=== PATIENT | female | born 1940 | race Caucasian/White ===

== ENCOUNTER → 2016-09-04 | Outpatient (CLI) | payer MEDICARE, OTHER ==
[2016-09-04 10:13] LABS: ABSOLUTE BASOPHILS # (AUTO) 0.1 10^3/uL (0.0-0.2); ABSOLUTE EOSINOPHILS # (AUTO) 0.2 10^3/uL (0.0-0.6); ABSOLUTE LYMPHOCYTES (AUTO) 1.3 10^3/uL (0.5-4.7); ABSOLUTE MONOCYTES (AUTO) 0.7 10^3/uL (0.1-1.4); BASOPHILS % (AUTO) 0.8 % (0-2); EOSINOPHILS % (AUTO) 3.3 % (0-6); HEMATOCRIT 41.7 % (36.0-47.0); HEMOGLOBIN 14.1 g/dL (12.0-15.5); HGB HCT DIFFERENCE 0.6; LYMPHOCYTES % (AUTO) 18.4 % (13-45); MEAN CORPUSCULAR HEMOGLOBIN 30.4 pg (27.0-33.4); MEAN CORPUSCULAR HGB CONC 33.9 g/dL (32.0-36.0); MEAN CORPUSCULAR VOLUME 90 fl (80-97); MONOCYTES % (AUTO) 9.1 % (3-13); RED BLOOD COUNT 4.65 10^6/uL (3.72-5.28); RED CELL DISTRIBUTION WIDTH 13.7 % (11.5-14.0); SEGMENTED NEUTROPHILS % (AUTO) 68.4 % (42-78); WHITE BLOOD COUNT 7.3 10^3/uL (4.0-10.5)
[2016-09-04 10:46] LABS: ANION GAP 14 (5-19); BLOOD UREA NITROGEN 49 mg/dL (7-20); CALCIUM 9.5 mg/dL (8.4-10.2); CARBON DIOXIDE 26 mmol/L (22-30); CHLORIDE 101 mmol/L (98-107); CREATININE RESULT 3.44 mg/dL (0.52-1.25); GLUCOSE 87 mg/dL (75-110); PHOSPHORUS 4.4 mg/dL (2.5-4.5); POTASSIUM 4.4 mmol/L (3.6-5.0); SODIUM 140.6 mmol/L (137-145)
[2016-09-05 10:54] LABS: VITAMIN D 25-HYDROXY 48.7 ng/mL (30.0-100.0)
== END ==
LOC: OD 09:02
PROVIDERS: ATTEND Internal Medicine Nephrology
DX: N18.5 Chronic kidney disease, stage 5 (principal); E83.39 Other disorders of phosphorus metabolism; N25.81 Secondary hyperparathyroidism of renal origin; E55.9 Vitamin D deficiency, unspecified
CPT/HCPCS: 36415; 80048; 82040; 82306; 82570; 83970; 84100; 84156; 85025

== ENCOUNTER → 2016-10-04 | Outpatient (CLI) | payer MEDICARE, OTHER ==
[2016-10-04 11:50] LABS: CHOLESTEROL 127.09 mg/dL (0-200); Direct HDL 52 mg/dL (>40); TRIGLYCERIDES 92 mg/dL (<150)
[2016-10-04 11:58] LABS: DIRECT LDL 43 mg/dL (<100)
== END ==
LOC: OD 10:16
PROVIDERS: ATTEND Internal Medicine Cardiovascular Disease
DX: E78.00 Pure hypercholesterolemia, unspecified (principal)
CPT/HCPCS: 36415; 80061

== ENCOUNTER → 2016-12-06 | Outpatient (CLI) | payer MEDICARE, OTHER ==
[2016-12-06 10:00] LABS: ANION GAP 14 (5-19); BLOOD UREA NITROGEN 75 mg/dL (7-20); CARBON DIOXIDE 24 mmol/L (22-30); CHLORIDE 102 mmol/L (98-107); CREATININE RESULT 4.57 mg/dL (0.52-1.25); GLUCOSE 85 mg/dL (75-110); POTASSIUM 5.1 mmol/L (3.6-5.0); SODIUM 140.2 mmol/L (137-145)
== END ==
LOC: OD 08:42
PROVIDERS: ATTEND Internal Medicine Nephrology
DX: N18.5 Chronic kidney disease, stage 5 (principal); N25.81 Secondary hyperparathyroidism of renal origin
CPT/HCPCS: 36415; 80048; 83970

== ENCOUNTER → 2016-12-19 | Outpatient (CLI) | payer MEDICARE, OTHER ==
[2016-12-19 09:46] LABS: ABSOLUTE BASOPHILS # (AUTO) 0.1 10^3/uL (0.0-0.2); ABSOLUTE EOSINOPHILS # (AUTO) 0.2 10^3/uL (0.0-0.6); ABSOLUTE LYMPHOCYTES (AUTO) 1.4 10^3/uL (0.5-4.7); ABSOLUTE MONOCYTES (AUTO) 0.7 10^3/uL (0.1-1.4); ABSOLUTE NEUT (AUTO) 4.7 10^3/uL (1.7-8.2); BASOPHILS % (AUTO) 1.2 % (0-2); EOSINOPHILS % (AUTO) 2.6 % (0-6); HEMATOCRIT 38.5 % (36.0-47.0); HEMOGLOBIN 13.2 g/dL (12.0-15.5); HGB HCT DIFFERENCE 1.1; LYMPHOCYTES % (AUTO) 19.1 % (13-45); MEAN CORPUSCULAR HEMOGLOBIN 31.1 pg (27.0-33.4); MEAN CORPUSCULAR HGB CONC 34.3 g/dL (32.0-36.0); MEAN CORPUSCULAR VOLUME 91 fl (80-97); RED BLOOD COUNT 4.25 10^6/uL (3.72-5.28); RED CELL DISTRIBUTION WIDTH 13.6 % (11.5-14.0); SEGMENTED NEUTROPHILS % (AUTO) 67.1 % (42-78); WHITE BLOOD COUNT 7.1 10^3/uL (4.0-10.5)
[2016-12-19 10:01] LABS: ABSOLUTE BASOPHILS # (AUTO) 0.1 10^3/uL (0.0-0.2); ABSOLUTE EOSINOPHILS # (AUTO) 0.2 10^3/uL (0.0-0.6); ABSOLUTE LYMPHOCYTES (AUTO) 1.4 10^3/uL (0.5-4.7); ABSOLUTE MONOCYTES (AUTO) 0.7 10^3/uL (0.1-1.4); ABSOLUTE NEUT (AUTO) 4.7 10^3/uL (1.7-8.2); BASOPHILS % (AUTO) 1.2 % (0-2); EOSINOPHILS % (AUTO) 2.6 % (0-6); HEMATOCRIT 38.5 % (36.0-47.0); HEMOGLOBIN 13.2 g/dL (12.0-15.5); HGB HCT DIFFERENCE 1.1; LYMPHOCYTES % (AUTO) 19.1 % (13-45); MEAN CORPUSCULAR HEMOGLOBIN 31.1 pg (27.0-33.4); MEAN CORPUSCULAR HGB CONC 34.3 g/dL (32.0-36.0); MEAN CORPUSCULAR VOLUME 91 fl (80-97); RED BLOOD COUNT 4.25 10^6/uL (3.72-5.28); RED CELL DISTRIBUTION WIDTH 13.6 % (11.5-14.0); SEGMENTED NEUTROPHILS % (AUTO) 67.1 % (42-78); WHITE BLOOD COUNT 7.1 10^3/uL (4.0-10.5)
[2016-12-19 10:11] LABS: ALANINE AMINOTRANSFERASE 25 U/L (9-52); ALKALINE PHOSPHATASE 77 U/L (38-126); ANION GAP 14 (5-19); ASPARTATE AMINO TRANSFERASE 20 U/L (14-36); BILIRUBIN,DIRECT 0.2 mg/dL (0.0-0.4); BILIRUBIN,TOTAL 0.7 mg/dL (0.2-1.3); BLOOD UREA NITROGEN 59 mg/dL (7-20); CALCIUM 9.6 mg/dL (8.4-10.2); CARBON DIOXIDE 25 mmol/L (22-30); CHLORIDE 103 mmol/L (98-107); CREATININE RESULT 3.81 mg/dL (0.52-1.25); GLUCOSE 87 mg/dL (75-110); POTASSIUM 4.9 mmol/L (3.6-5.0); SODIUM 141.9 mmol/L (137-145); TOTAL PROTEIN 7.1 g/dL (6.3-8.2); URIC ACID 3.9 mg/dL (2.5-7.5)
[2016-12-19 10:22] LABS: FREE T3 3.15 pg/mL (2.77-5.27)
[2016-12-19 10:35] LABS: THYROID STIMULATING HORMONE 1.53 uIU/mL (0.47-4.68)
[2016-12-19 11:13] LABS: ANION GAP 14 (5-19); BLOOD UREA NITROGEN 59 mg/dL (7-20); CALCIUM 9.6 mg/dL (8.4-10.2); CARBON DIOXIDE 25 mmol/L (22-30); CHLORIDE 103 mmol/L (98-107); CREATININE RESULT 3.81 mg/dL (0.52-1.25); GLUCOSE 87 mg/dL (75-110); PHOSPHORUS 6.2 mg/dL (2.5-4.5); POTASSIUM 4.9 mmol/L (3.6-5.0); SODIUM 141.9 mmol/L (137-145)
[2016-12-20 08:42] LABS: HEPATITIS C VIRUS AB <0.1 s/co ratio (0.0-0.9)
== END ==
LOC: OD 08:34
PROVIDERS: ATTEND Family Medicine
DX: Z79.899 Other long term (current) drug therapy (principal); N18.5 Chronic kidney disease, stage 5; E87.5 Hyperkalemia; E87.2 Acidosis; E03.9 Hypothyroidism, unspecified; M10.372 Gout due to renal impairment, left ankle and foot
CPT/HCPCS: 36415; 80048; 80076; 84100; 84439; 84443; 84481; 84550; 85025; 86317; 86803; 86804; 87340

== ENCOUNTER 2017-06-13 11:42 | Inpatient (IN) | payer MEDICARE, OTHER ==
--- NOTE | 2017-06-13 12:03 | ER Document Report ---
ED Neuro Symptoms/Deficit - General Chief Complaint: S/S of Possible Stroke Stated Complaint: DIZZINESS,WEAKNESS Notes: Patient says that she has left-sided weakness. She suffers from this condition as a residual from a stroke that she had in 2008. She continues to require a walker or a cane to ambulate, so there are no profound new deficits or symptoms. She says she falls into the dominguez frequently. This morning, about 8: 50 AM, patient was in the shower when she developed left arm and leg weakness more than usual. Patient says she is unable to stand without help or assistance now. Denies any headache. Denies any loss of consciousness. Patient is a renal dialysis patient on Friday, Friday, and Friday dialysis. She has no nausea or vomiting. Denies any chest pains. Denies any shortness of breath or difficulty breathing, any more than she normally has. Denies any recent illness or fevers. Patient lives with her and next door to her son. History of hypertension. Denies diabetes. Has a history of heart disease. TRAVEL OUTSIDE OF THE [place] IN LAST 30 DAYS: No - Related Data Allergies/Adverse Reactions: Sulfa (Sulfonamide Antibiotics) Allergy (Severe, Verified 06/13/17 12:05) unsure pregabalin [From Lyrica] Adverse Reaction (Severe, Verified 06/13/17 12:05) irritable,weight gain Home Medications: Current Home Medications Albuterol Sulfate [Proair HFA] 1 - 2 puff IH Q4 PRN 06/13/17 [History] Calcium Acetate [Calcium Acetate] 667 mg PO TID 06/13/17 [History] Febuxostat [Uloric 40 mg Tablet] 40 mg PO QAM 06/13/17 [History] Fluticasone/Salmeterol [Advair 250-50 Diskus 14 Dose/Diskus] 1 inh IH Q12H 06/13 [History] Past Medical History - Social History Smoking Status: Never Smoker Cigarette use (# per day): No Chew tobacco use (# tins/day): No Frequency of alcohol use: None Drug Abuse: None Family History: Reviewed & Not Pertinent, CAD Patient has suicidal ideation: No Patient has homicidal ideation: No - Past Medical History Cardiac Medical History: Reports: Hx Coronary Artery Disease, Hx Heart Attack - 2000, Hx Hypercholesterolemia, Hx Hypertension Denies: Hx Atrial Fibrillation Pulmonary Medical History: Reports: Hx COPD Denies: Hx Asthma Neurological Medical History: Reports: Hx Cerebrovascular Accident - 2008,2010. Denies: Hx Seizures Endocrine Medical History: Reports: Hx Hypothyroidism. 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 Denies: Hx Hepatitis, Hx Hiatal Hernia, Hx Ulcer - DIVERTICULITIS Psychiatric Medical History: Denies: Hx Depression Infectious Medical History: Denies: Hx Hepatitis Past Surgical History: Reports: Hx Appendectomy, Hx Cardiac Surgery - STENT, Hx Cholecystectomy, Hx Coronary Stent - August 2014. Denies: Hx Hysterectomy, Hx Mastectomy, Hx Open Heart Surgery, Hx Pacemaker - Immunizations Hx Diphtheria, Pertussis, Tetanus Vaccination: - unknown Hx Pneumococcal Vaccination: 07/07/12 Review of Systems - Review of Systems Notes: REVIEW OF SYSTEMS: CONSTITUTIONAL : Denies fever. EENT: Denies eye, ear, nose or mouth or throat pain or other symptoms. CARDIOVASCULAR: Denies chest pain. RESPIRATORY: Denies cough, chest congestion, or shortness of breath, other than her usual feeling of difficulty breathing.. GASTROINTESTINAL: Denies abdominal pain or nausea, vomiting, or diarrhea. GENITOURINARY: Denies difficulty or painful urinating, urinary frequency, blood in urine. MUSCULOSKELETAL: Denies back or neck pain. Denies joint pain or swelling. SKIN: Denies rash or skin lesions. NEUROLOGICAL: Denies LOC or altered mental status. Denies headache. See HPI. ALL OTHER SYSTEMS REVIEWED AND NEGATIVE. Physical Exam - Vital signs Vitals: Pulse Ox 100 06/13/17 11:56 Interpretation: Normal - Notes Notes: PHYSICAL EXAMINATION: GENERAL: Well-appearing, in no acute distress. Vital signs are all essentially normal. HEAD: Atraumatic, normocephalic. No facial asymmetry. No carotid bruits heard. EYES: Pupils equal round and reactive to light, extraocular movements intact. ENT: oropharynx clear without exudates. Moist mucous membranes. No slurred speech. No difficulty swallowing. NECK: Normal range of motion, supple. LUNGS: Breath sounds clear and equal bilaterally. HEART: Regular rate and rhythm without murmurs. ABDOMEN: Soft, nontender. No guarding or rebound. BACK: No tenderness throughout entire back. EXTREMITIES: Normal range of motion without pain. Dialysis shunt in left antecubital fossa with some ecchymosis. NEUROLOGICAL: Normal speech. It seems the patient has some very mild weakness of her left arm and leg. She can raise her left arm from the bed to over her head without assistance. Otherwise, normal sensory, motor, and reflex exams. Awake, alert, and oriented x3. Cranial nerves normal. We are able to stand the patient up at the bedside and, with assistance, she does not fall. I did not try to walk her, however. PSYCH: Normal mood, normal affect. SKIN: Warm, dry, no rashes. Course - Re-evaluation Re-evalutation: 06/13/17 12:58 There is a correction to the time of onset of patient's symptoms. is here with his cell phone showing he called his daughter at 9:50 AM about the patient's condition. The daughter has on her phone that she was called at 9:50 AM, so the episode occurred about 930 this morning. It is now about 1230 and the patient is on the border of being out of the window of opportunity. I presented the options to the patient and they asked my advice if this was my mother and I told him that I would not do the thrombolytics in this case because her deficit is fairly minor. I am hopeful that she would have a fairly good result with some physical therapy without putting her at risk of an intracranial hemorrhage. Spoke with hospitalist who will admit the patient. Spoke with Dr. Neumann, this patient's inspector of dredging who says that the patient is going to need to have dialysis done today and nursing staff was made aware. - Vital Signs Vital signs: Temp Pulse Resp BP Pulse Ox 100 06/13/17 11:56 - Laboratory Result Diagrams: 06/13/17 11:58 06/13/17 11:58 - Diagnostic Test Radiology reviewed: Image reviewed, Reports reviewed - CT scan of the brain is normal. - EKG Interpretation by Me EKG shows normal: Sinus rhythm Rate: Normal Rhythm: NSR Additional EKG results interpreted by me: 06/13/17 13:01 EKG is normal. Critical Care Note - Critical Care Note Total time excluding time spent on procedures (mins): 40 Discharge - Discharge Clinical Impression: Stroke, End stage renal failure on dialysis Condition: Fair Disposition: ADMITTED INPATIENT Admitting Provider: Hospitalist Unit Admitted: Telemetry
--- NOTE | 2017-06-13 12:06 | RADIOLOGY REPORT (SQ) ---
EXAM DESCRIPTION: CT HEAD WITHOUT COMPLETED DATE/TIME: 06/13/2017 11:55 am REASON FOR STUDY: s/s stroke COMPARISON: 11/06/2014 TECHNIQUE: Axial images acquired through the brain without intravenous contrast. Images reviewed wi th bone, brain and subdural windows. Images stored on PACS. All CT scanners at this facility use dose modulation, iterative reconstruction, and/or weight based d osing when appropriate to reduce radiation dose to as low as reasonably achievable (ALARA). [facility]: Dose Right [facility]: CareDose [facility]: Dose Right [facility]: Teradose 4D [facility]: [employer] RADIATION DOSE: mGy. LIMITATIONS: None. FINDINGS: VENTRICLES: Normal size and contour. CEREBRUM: No masses. No hemorrhage. No midline shift. No evidence for acute infarction. Few scatte red areas of low density in the white matter most likely chronic small vessel ischemic changes. Pablo ical atrophy is present. CEREBELLUM: No masses. No hemorrhage. No alteration of density. No evidence for acute infarction. EXTRAAXIAL SPACES: No fluid collections. No masses. ORBITS AND GLOBE: No intra- or extraconal masses. Normal contour of globe without masses. CALVARIUM: No fracture. PARANASAL SINUSES: No fluid or mucosal thickening. SOFT TISSUES: No mass or hematoma. OTHER: No other significant finding. IMPRESSION: Involutional changes of aging with chronic microvascular ischemia. No acute intracrania l findings. EVIDENCE OF ACUTE STROKE: NO. COMMENT: Quality ID # [id number]: Final reports with documentation of one or more dose reduction techniques (e.g., Automated exposure control, adjustment of the mA and/or kV according to patient size, use of iterative reconstruction technique) TECHNICAL DOCUMENTATION: JOB ID: [id number]- All Rights Reserved
--- NOTE | 2017-06-13 12:09 | RADIOLOGY REPORT (SQ) ---
EXAM DESCRIPTION: CHEST SINGLE VIEW COMPLETED DATE/TIME: 06/13/2017 12:02 pm REASON FOR STUDY: s/s stroke COMPARISON: 04/05/2016 EXAM PARAMETERS: NUMBER OF VIEWS: One view. TECHNIQUE: Single frontal radiographic view of the chest acquired. RADIATION DOSE: NA LIMITATIONS: None. FINDINGS: LUNGS AND PLEURA: No opacities, masses or pneumothorax. No pleural effusion. MEDIASTINUM AND HILAR STRUCTURES: No masses. Contour normal. HEART AND VASCULAR STRUCTURES: Heart normal in size. Normal vasculature. BONES: No acute findings. HARDWARE: None in the chest. OTHER: No other significant finding. IMPRESSION: NO ACUTE RADIOGRAPHIC FINDING IN THE CHEST. TECHNICAL DOCUMENTATION: JOB ID: [id number] [employer]- All Rights Reserved
[2017-06-13 12:12] LABS: PARTIAL THROMBOPLASTIN TIME 29.9 SEC (23.5-35.8)
[2017-06-13 12:24] LABS: ABSOLUTE BASOPHILS # (AUTO) 0.1 10^3/uL (0.0-0.2); ABSOLUTE EOSINOPHILS # (AUTO) 0.1 10^3/uL (0.0-0.6); ABSOLUTE LYMPHOCYTES (AUTO) 1.3 10^3/uL (0.5-4.7); ABSOLUTE MONOCYTES (AUTO) 0.6 10^3/uL (0.1-1.4); ABSOLUTE NEUT (AUTO) 3.4 10^3/uL (1.7-8.2); BASOPHILS % (AUTO) 1.3 % (0-2); HEMATOCRIT 40.4 % (36.0-47.0); HEMOGLOBIN 13.9 g/dL (12.0-15.5); HGB HCT DIFFERENCE 1.3; LYMPHOCYTES % (AUTO) 24.2 % (13-45); MEAN CORPUSCULAR HEMOGLOBIN 31.8 pg (27.0-33.4); MEAN CORPUSCULAR HGB CONC 34.5 g/dL (32.0-36.0); MEAN CORPUSCULAR VOLUME 92 fl (80-97); MONOCYTES % (AUTO) 11.2 % (3-13); RED BLOOD COUNT 4.37 10^6/uL (3.72-5.28); RED CELL DISTRIBUTION WIDTH 13.5 % (11.5-14.0); SEGMENTED NEUTROPHILS % (AUTO) 61.3 % (42-78); WHITE BLOOD COUNT 5.5 10^3/uL (4.0-10.5)
[2017-06-13 12:24] LABS: APPEARANCE,URINE CLEAR; BILIRUBIN,URINE NEGATIVE (NEGATIVE); GLUCOSE, URINE NEGATIVE (NEGATIVE); KETONES,URINE NEGATIVE (NEGATIVE); LEUKOCYTE ESTERASE,URINE NEGATIVE (NEGATIVE); NITRITE,URINE NEGATIVE (NEGATIVE); PROTEIN,URINE 100 mg/dL (NEGATIVE); URINE SPECIFIC GRAVITY 1.002; UROBILINOGEN,URINE NEGATIVE mg/dL (<2.0)
[2017-06-13 12:30] LABS: ALANINE AMINOTRANSFERASE 29 U/L (9-52); ALBUMIN 4.1 g/dL (3.5-5.0); ALKALINE PHOSPHATASE 102 U/L (38-126); ANION GAP 12 (5-19); ASPARTATE AMINO TRANSFERASE 24 U/L (14-36); BILIRUBIN,DIRECT 0.5 mg/dL (0.0-0.4); BILIRUBIN,TOTAL 0.9 mg/dL (0.2-1.3); BLOOD UREA NITROGEN 22 mg/dL (7-20); CALCIUM 9.8 mg/dL (8.4-10.2); CARBON DIOXIDE 28 mmol/L (22-30); CHLORIDE 104 mmol/L (98-107); CREATINE KINASE 40 U/L (30-135); CREATININE RESULT 3.12 mg/dL (0.52-1.25); GLUCOSE 103 mg/dL (75-110); POTASSIUM 3.5 mmol/L (3.6-5.0); SODIUM 144.4 mmol/L (137-145); TOTAL PROTEIN 7.3 g/dL (6.3-8.2)
[2017-06-13 12:41] LABS: TROPONIN I < 0.012 ng/mL
--- NOTE | 2017-06-13 12:53 | EKG REPORT ---
SEVERITY:- BORDERLINE ECG - SINUS RHYTHM BORDERLINE INFERIOR Q WAVES : Confirmed by: Brittni Alonso 13-Jun-2017 12:52:37
[2017-06-13] MEDS ORDERED: NITROGLYCERIN 0.4 MG/TAB 25 TAB/BOTTLE SL PRN (13:04)
[2017-06-13] MEDS ORDERED: HYDRALAZINE HCL INJ/PF 20 MG/1 ML SDV IV PRN (13:07)
[2017-06-13] MEDS ORDERED: FLUTICASONE/SALMETEROL DISKUS 250-50 MCG/DOSE IH SCH (13:15)
[2017-06-13] MEDS ORDERED: ACETAMINOPHEN 325 MG TABLET PO PRN (13:43)
[2017-06-13] MEDS ORDERED: CALCIUM ACETATE 667 MG CAPSULE PO SCH (14:00)
[2017-06-13 15:50] LABS: ANION GAP 14 (5-19); BLOOD UREA NITROGEN 21 mg/dL (7-20); CALCIUM 9.3 mg/dL (8.4-10.2); CARBON DIOXIDE 22 mmol/L (22-30); CHLORIDE 109 mmol/L (98-107); CREATININE RESULT 2.94 mg/dL (0.52-1.25); GLUCOSE 82 mg/dL (75-110); POTASSIUM 3.7 mmol/L (3.6-5.0); SODIUM 145.2 mmol/L (137-145)
[2017-06-13] MEDS ORDERED: NORMAL SALINE 1000 ML 1,000 ML IV PRN (16:32)
[2017-06-13] MEDS ORDERED: ALBUTEROL SULFATE HFA (90 MCG/PUFF) 8 GM MDI (1 MDI/ER DISP) IH PRN (16:38)
--- NOTE | 2017-06-13 16:55 | PDOC CONSULTATION ---
Consultation Consult Date: 06/13/17 Attending physician:: BISHNU JALLOH Consult reason:: I was asked by Dr. Trent from the emergency room to see the patient for management and supervision of hemodialysis while here in the hospital. 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 Patient related that while she was in the shower at around 9:30 AM she felt that her left side is been weaker than her usual baseline. She immediately called her and her called her [id number] who called the EMS. She was then brought to the emergency room. Thrombolytics was considered but the emergency room physician, Dr. Membreno have discussed this with the family and decision was not to give it. Patient was then admitted. Patient denies any other symptoms including slurring of speech, facial droop, chest pain or shortness of breath. She has slight nausea but no vomiting. In retrospect patient said that in the past she has been falling into things and bumping on the dominguez on that left side but nothing major like this. Patient goes on dialysis on Mondays , Wednesdays and Fridays. Her last dialysis was last Friday and there was no complications at that time. So today regarding going to dialyze her. I am actually seeing her while she is on dialysis. She does not really have any complaints except for the left sided weakness. Past Medical History Cardiac Medical History: Reports: Coronary Artery Disease, Hyperlipidemia, Hypertension-primary, Myocardial Infarction - 2000, Other - Subclavian steal syndrome Pulmonary Medical History: Reports: Chronic Obstructive Pulmonary Disease (COPD) , Sleep Apnea Neurological Medical History: Reports: Ischemic CVA, Other - TIA, syncope, vertigo Endocrine Medical History: Reports: Hypothyroidism Renal/ Medical History: Reports: End Stage Renal Disease - Stage IV, Hyperphosphatemia, Metabolic Acidosis, Proteinuria, Secondary Hyperparathyroidism, Other - FSGS per kidney biopsy GI Medical History: Reports: Other - Diverticulitis Past Surgical History Past Surgical History: Reports: Appendectomy, Cardiac Catheterization, Cholecystectomy, Coronary Stent - August 2014, Dialysis Access Surgery AVF, Tubal Ligation, Vascular Surgery - PermCath placement for dialysis Social History Information Source: Patient, [employer] Office Lives with: Spouse/Significant other Smoking Status: Former Smoker Frequency of Alcohol Use: None Hx Recreational Drug Use: No Drugs: None Hx Prescription Drug Abuse: No - Advance Directive Resuscitation Status: Full Code Family History Family History: CVA - Mother, Hypertension - Sister, Other - Kidney stone in her sister and mother. [place] syndrome on her father, sister, cousin and nephew Parental Family History Reviewed: Yes Children Family History Reviewed: Yes Sibling(s) Family History Reviewed.: Yes Medication/Allergy Home Medications: Atorvastatin Calcium [Lipitor 40 mg Tablet] 40 mg PO QHS 08/14/13 Furosemide [Lasix 20 mg Tablet] 20 mg PO SUTUTHSA@10 08/14/13 Levothyroxine Sodium [Synthroid 0.088 mg Tablet] 88 mcg PO DAILY 08/14/13 Metoprolol Succinate [Toprol XL 100 mg Tablet] 50 mg PO QHS 08/14/13 Nitroglycerin [Nitrostat 0.4 mg (1/150 Gr) Tabs 25/Bottle] 1 tab SL Q5MP PRN 02/17 Tiotropium [place] [Spiriva Handihaler 18 mcg/dose (30 Dose)] 1 cap IH DAILY 02/17 Aspirin [Aspirin 81 mg Chewable Tablet] 81 mg PO DAILY 02/17/15 Albuterol Sulfate [Proair HFA] 2 puff IH Q6HP PRN 06/13/17 Calcium Acetate [Calcium Acetate] 667 mg PO MEALS 06/13/17 Febuxostat [Uloric 40 mg Tablet] 40 mg PO QAM 06/13/17 Fluticasone/Salmeterol [Advair 250-50 Diskus 14 Dose/Diskus] 1 inh IH Q12 Allergies/Adverse Reactions: Sulfa (Sulfonamide Antibiotics) Allergy (Severe, Verified 06/13/17 12:05) unsure pregabalin [From Lyrica] Adverse Reaction (Severe, Verified 06/13/17 12:05) irritable,weight gain Review of Systems All systems: reviewed and no additional remarkable complaints except as stated Review of Systems: Constitutional: ABSENT: chills, fatigue, fever(s), headache(s), weight gain, weight loss Eyes: ABSENT: visual disturbances Ears: ABSENT: hearing changes Cardiovascular: ABSENT: chest pain, dyspnea on exertion, edema, orthropnea, palpitations Respiratory: ABSENT: cough, dyspnea, hemoptysis Gastrointestinal: ABSENT: abdominal pain, constipation, diarrhea, hematemesis, hematochezia, nausea, vomiting Genitourinary: ABSENT: dysuria, hematuria Musculoskeletal: ABSENT: joint swelling Integumentary: ABSENT: rash, wounds Neurological: ABSENT: abnormal gait, abnormal speech, confusion, dizziness, numbness, syncope; admits left sided upper and lower extremity weakness more than her usual residual weakness from previous strokes Psychiatric: ABSENT: anxiety, depression Endocrine: ABSENT: cold intolerance, heat intolerance, polydipsia, polyuria Hematologic/Lymphatic: ABSENT: easy bleeding, easy bruising, lymphadenopathy Physical Exam Vital Signs: Temp Pulse Resp BP Pulse Ox 73 21 H 151/76 H 90 L 06/13/17 15:00 06/13/17 15:01 06/13/17 15:00 06/13/17 15:01 Vital signs during dialysis: Blood pressure 160/83, heart rate of 73, blood flow rate of 450 mL/min, dialysate flow rate of 800 mL/min. Exam: General appearance: no acute distress, cooperative, well-developed, well- nourished Head exam: PRESENT: atraumatic, normocephalic Eye exam: PRESENT: Conjunctiva [place], EOMI, PERRLA. ABSENT: conjunctival injection, scleral icterus Mouth exam: PRESENT: moist, neck supple, tongue midline Neck exam: PRESENT: full ROM. ABSENT: carotid bruit, JVD, lymphadenopathy, thyromegaly Respiratory exam: PRESENT: clear to auscultation bilaterally. ABSENT: rales, rhonchi, stridor, wheezes Cardiovascular exam: PRESENT: RRR, +S1, +S2. ABSENT: systolic murmur Pulses: PRESENT: normal radial pulses, normal dorsalis pedis pulses GI/Abdominal exam: PRESENT: normal bowel sounds, soft. ABSENT: guarding, mass, tenderness Rectal exam: deferred Extremities exam: PRESENT: full ROM. ABSENT: calf tenderness, pedal edema Musculoskeletal: PRESENT: full ROM. ABSENT: deformity Neurological exam: PRESENT: alert, Awake, Oriented to person, Oriented to place , Oriented to time, reflexes normal, CN II-XII grossly intact. Motor strength on the right upper and lower extremities 5/5; on the left upper extremity 3+/5 and left lower extremity 3/5 ABSENT: sensory deficit Psychiatric exam: PRESENT: appropriate affect, normal mood. ABSENT: homicidal ideation, suicidal ideation Skin exam: PRESENT: intact, dry, warm. ABSENT: rash Results Laboratory Results: Laboratory 06/13/17 06/13/17 06/13/17 11:49 11:58 11:58 WBC 5.5 RBC 4.37 Hgb 13.9 Hct 40.4 MCV 92 MCH 31.8 MCHC 34.5 RDW 13.5 Plt Count 247 Seg Neutrophils % 61.3 Lymphocytes % 24.2 Monocytes % 11.2 Eosinophils % 2.0 Basophils % 1.3 Absolute Neutrophils 3.4 Absolute Lymphocytes 1.3 Absolute Monocytes 0.6 Absolute Eosinophils 0.1 Absolute Basophils 0.1 PT 14.0 INR 1.01 APTT 29.9 Sodium Potassium Chloride Carbon Dioxide Anion Gap BUN Creatinine Est GFR ( Amer) Est GFR (Non-Af Amer) Glucose POC Glucose 91 Calcium Total Bilirubin Direct Bilirubin Neonat Total Bilirubin Neonat Direct Bilirubin Neonat Indirect Bili AST ALT Alkaline Phosphatase Creatine Kinase CK-MB (CK-2) Troponin I Total Protein Albumin Urine Color Urine Appearance Urine pH Ur Specific [place] Urine Protein Urine Glucose (UA) Urine Ketones Urine Blood Urine Nitrite Urine Bilirubin Urine Urobilinogen Ur Leukocyte Esterase Urine WBC (Auto) Urine RBC (Auto) U Hyaline Cast (Auto) Urine Bacteria (Auto) Squamous Epi Cells Auto Urine Ascorbic Acid 06/13/17 06/13/17 06/13/17 11:58 11:58 12:05 WBC RBC Hgb Hct MCV MCH MCHC RDW Plt Count Seg Neutrophils % Lymphocytes % Monocytes % Eosinophils % Basophils % Absolute Neutrophils Absolute Lymphocytes Absolute Monocytes Absolute Eosinophils Absolute Basophils PT INR APTT Sodium 144.4 Potassium 3.5 L Chloride 104 Carbon Dioxide 28 Anion Gap 12 BUN 22 H Creatinine 3.12 H Est GFR ( Amer) 18 L Est GFR (Non-Af Amer) 15 L Glucose 103 POC Glucose Calcium 9.8 Total Bilirubin 0.9 Direct Bilirubin 0.5 H Neonat Total Bilirubin Not Reportable Neonat Direct Bilirubin Not Reportable Neonat Indirect Bili Not Reportable AST 24 ALT 29 Alkaline Phosphatase 102 Creatine Kinase 40 CK-MB (CK-2) 0.40 Troponin I < 0.012 Total Protein 7.3 Albumin 4.1 Urine Color STRAW Urine Appearance CLEAR Urine pH 8.0 Ur Specific [place] 1.002 Urine Protein 100 H Urine Glucose (UA) NEGATIVE Urine Ketones NEGATIVE Urine Blood SMALL H Urine Nitrite NEGATIVE Urine Bilirubin NEGATIVE Urine Urobilinogen NEGATIVE Ur Leukocyte Esterase NEGATIVE Urine WBC (Auto) 1 Urine RBC (Auto) 2 U Hyaline Cast (Auto) 1 Urine Bacteria (Auto) 3+ Squamous Epi Cells Auto 2 Urine Ascorbic Acid NEGATIVE 06/13/17 13:45 WBC RBC Hgb Hct MCV MCH MCHC RDW Plt Count Seg Neutrophils % Lymphocytes % Monocytes % Eosinophils % Basophils % Absolute Neutrophils Absolute Lymphocytes Absolute Monocytes Absolute Eosinophils Absolute Basophils PT INR APTT Sodium 145.2 H Potassium 3.7 Chloride 109 H Carbon Dioxide 22 Anion Gap 14 BUN 21 H Creatinine 2.94 H Est GFR ( Amer) 19 L Est GFR (Non-Af Amer) 16 L Glucose 82 POC Glucose Calcium 9.3 Total Bilirubin Direct Bilirubin Neonat Total Bilirubin Neonat Direct Bilirubin Neonat Indirect Bili AST ALT Alkaline Phosphatase Creatine Kinase CK-MB (CK-2) Troponin I Total Protein Albumin Urine Color Urine Appearance Urine pH Ur Specific [place] Urine Protein Urine Glucose (UA) Urine Ketones Urine Blood Urine Nitrite Urine Bilirubin Urine Urobilinogen Ur Leukocyte Esterase Urine WBC (Auto) Urine RBC (Auto) U Hyaline Cast (Auto) Urine Bacteria (Auto) Squamous Epi Cells Auto Urine Ascorbic Acid Impressions: Chest X-Ray 06/13/17 11:44 IMPRESSION: NO ACUTE RADIOGRAPHIC FINDING IN THE CHEST. Head CT 06/13/17 11:44 IMPRESSION: Involutional changes of aging with chronic microvascular ischemia. No acute intracranial findings. EVIDENCE OF ACUTE STROKE: NO. Assessment & Plan - Diagnosis (1) End stage renal failure on dialysis Is this a current diagnosis for this admission?: Yes Plan: We are doing dialysis on this patient today. Patient is being monitored toward closely. We will do dialysis today for 3 hours, using the patient's left arm AV fistula, with 3 potassium bath, blood flow rate of 450 mL per minute, dialysate flow rate of 800 mL per minute, ultrafiltration 1-2 L as tolerated, no heparin and no Procrit during dialysis. Patient will be closely monitored toward. Next dialysis will be on Friday. (2) Acute CVA (cerebrovascular accident) Is this a current diagnosis for this admission?: Yes Plan: Patient has worsening of left-sided weakness. She will need to be monitored . She will most likely need some acute rehab posthospitalization. (3) Hypertension Is this a current diagnosis for this admission?: Yes Plan: Resume patient's home blood pressure medications. Her blood pressure is usually well controlled with her current home medications. This may be adjusted depending on her blood pressure here in the hospital. (4) Coronary artery disease Is this a current diagnosis for this admission?: Yes - Notes Notes: Thank you very much for this consultation. I will follow the patient with you. - Time Time Spent: 50 to 70 Minutes
[2017-06-13] MEDS ORDERED: ALBUTEROL SULFATE HFA (90 MCG/PUFF) 200 PUFF/8.5 GM MDI IH PRN (16:59)
[2017-06-13] MEDS ORDERED: FUROSEMIDE 20 MG TABLET PO SCH (18:00)
--- NOTE | 2017-06-13 18:29 | PDOC H&P ---
History of Present Illness Admission Date/PCP: 06/13/17 14:04 GIANNA BOURGEOIS MD Nephrology: Dr. 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 Patient related that while she was in the shower at around 9:30 AM she felt that her left side is been weaker than her usual baseline. She immediately called her and her called her [id number] who called the EMS. She was then brought to the emergency room. Thrombolytics was considered but the emergency room physician, Dr. Membreno have discussed this with the family and decision was not to give it. Patient was t referred for admission. She patient denies any other symptoms including slurring of speech, facial droop, chest pain or shortness of breath. She has slight nausea but no vomiting. In retrospect patient said that in the past she has been falling into things and bumping on the dominguez on that left side but nothing major like this. Patient goes on dialysis on Mondays , Wednesdays and Fridays. Her last dialysis was last Friday and there was no complications at that time. The patient is going to be dialyzed today by Dr. Neumann. Past Medical History Cardiac Medical History: Reports: Coronary Artery Disease, Myocardial Infarction - 2000, Hyperlipidema, Hypertension, Other - Subclavian steal syndrome Denies: Atrial Fibrillation Pulmonary Medical History: Reports: Chronic Obstructive Pulmonary Disease (COPD) , Sleep Apnea Denies: Asthma Neurological Medical History: Reports: Ischemic CVA, Other - TIA, syncope, vertigo Denies: Seizures Endocrine Medical History: Reports: Hypothyroidism Denies: Diabetes Mellitus Type 1, Diabetes Mellitus Type 2 Renal/ Medical History: Reports: End Stage Renal Disease - Stage IV, Other - FSGS per kidney biopsy Malignancy Medical History: Reports: None GI Medical History: Reports: Other - Diverticulitis Denies: Hepatitis, Hiatal Hernia Musculoskeltal Medical History: Reports: None Skin Medical History: Reports: None Psychiatric Medical History: Reports: None Denies: Depression Traumatic Medical History: Reports: None Hematology: Reports: Anemia Denies: Sickle Cell Disease Infectious Medical History: Reports: None Past Surgical History Past Surgical History: Reports: Appendectomy, Cardiac Catheterization, Cholecystectomy, Coronary Stent - August 2014, Tubal Ligation, Vascular Surgery - PermCath placement for dialysis Denies: Amputation, Hysterectomy, Mastectomy, Pacemaker Social History Information Source: Patient Lives with: Spouse/Significant other Smoking Status: Former Smoker Frequency of Alcohol Use: None Hx Recreational Drug Use: No Drugs: None Hx Prescription Drug Abuse: No - Advance Directive Resuscitation Status: Full Code Family History Family History: Reviewed & Not Pertinent, CAD Parental Family History Reviewed: Yes Children Family History Reviewed: Yes Sibling(s) Family History Reviewed.: Yes Medication/Allergy Home Medications: Atorvastatin Calcium [Lipitor 40 mg Tablet] 40 mg PO QHS 08/14/13 Furosemide [Lasix 20 mg Tablet] 20 mg PO SUTUTHSA@10 08/14/13 Levothyroxine Sodium [Synthroid 0.088 mg Tablet] 88 mcg PO DAILY 08/14/13 Metoprolol Succinate [Toprol XL 100 mg Tablet] 50 mg PO QHS 08/14/13 Nitroglycerin [Nitrostat 0.4 mg (1/150 Gr) Tabs 25/Bottle] 1 tab SL Q5MP PRN 02/17 Tiotropium Uriah [Spiriva Handihaler 18 mcg/dose (30 Dose)] 1 cap IH DAILY 02/17 Aspirin [Aspirin 81 mg Chewable Tablet] 81 mg PO DAILY 02/17/15 Albuterol Sulfate [Proair HFA] 2 puff IH Q6HP PRN 06/13/17 Calcium Acetate [Calcium Acetate] 667 mg PO MEALS 06/13/17 Febuxostat [Uloric 40 mg Tablet] 40 mg PO QAM 06/13/17 Fluticasone/Salmeterol [Advair 250-50 Diskus 14 Dose/Diskus] 1 inh IH Q12 Allergies/Adverse Reactions: Sulfa (Sulfonamide Antibiotics) Allergy (Severe, Verified 06/13/17 12:05) unsure pregabalin [From Lyrica] Adverse Reaction (Severe, Verified 06/13/17 12:05) irritable,weight gain Review of Systems Constitutional: PRESENT: weakness. ABSENT: chills, fatigue, headache(s), night sweats, weight gain, weight loss Eyes: ABSENT: visual disturbances Ears: ABSENT: hearing changes Nose, Mouth, and Throat: ABSENT: headache(s), mouth pain, sore throat Cardiovascular: ABSENT: chest pain, dyspnea on exertion, edema, orthropnea, palpitations Respiratory: ABSENT: cough, hemoptysis Gastrointestinal: ABSENT: abdominal pain, constipation, diarrhea, hematemesis, hematochezia, nausea, vomiting Genitourinary: ABSENT: dysuria, hematuria Musculoskeletal: ABSENT: joint swelling Integumentary: ABSENT: rash, wounds Neurological: PRESENT: abnormal gait, focal weakness, weakness. ABSENT: abnormal movements, abnormal speech, confusion, convulsions, numbness, paresthesias, tingling Psychiatric: PRESENT: as per HPI Endocrine: ABSENT: cold intolerance, heat intolerance, polydipsia, polyuria Hematologic/Lymphatic: ABSENT: easy bleeding, easy bruising Physical Exam Vital Signs: Temp Pulse Resp BP Pulse Ox 73 21 H 151/76 H 90 L 06/13/17 15:00 06/13/17 15:01 06/13/17 15:00 06/13/17 15:01 General appearance: PRESENT: no acute distress, well-developed, well-nourished Head exam: PRESENT: atraumatic, normocephalic Eye exam: PRESENT: conjunctiva pink, EOMI, PERRLA. ABSENT: scleral icterus Ear exam: PRESENT: normal external ear exam Mouth exam: PRESENT: moist, tongue midline Neck exam: ABSENT: carotid bruit, JVD, lymphadenopathy, thyromegaly Respiratory exam: PRESENT: clear to auscultation ashanti. ABSENT: rales, rhonchi, wheezes Cardiovascular exam: PRESENT: RRR, systolic murmur. ABSENT: diastolic murmur, rubs Pulses: PRESENT: normal dorsalis pedis pul Vascular exam: PRESENT: normal capillary refill GI/Abdominal exam: PRESENT: normal bowel sounds, soft. ABSENT: distended, guarding, mass, organolmegaly, rebound, tenderness Rectal exam: PRESENT: deferred Extremities exam: PRESENT: full ROM. ABSENT: calf tenderness, clubbing, pedal edema Neurological exam: PRESENT: alert, awake, oriented to person, oriented to place , oriented to time, oriented to situation, CN II-XII grossly intact, other - She has mild left hemiparesis Psychiatric exam: PRESENT: appropriate affect, normal mood. ABSENT: homicidal ideation, suicidal ideation Skin exam: PRESENT: dry, intact, warm. ABSENT: cyanosis, rash Results Impressions: Chest X-Ray 06/13/17 11:44 IMPRESSION: NO ACUTE RADIOGRAPHIC FINDING IN THE CHEST. Head CT 06/13/17 11:44 IMPRESSION: Involutional changes of aging with chronic microvascular ischemia. No acute intracranial findings. EVIDENCE OF ACUTE STROKE: NO. Assessment & Plan - Diagnosis (1) Acute CVA (cerebrovascular accident) Is this a current diagnosis for this admission?: Yes Plan: Clinically the patient appears to have had an acute CVA. CT scan of the brain was unremarkable. An MRI and carotid Dopplers as well as an echocardiogram have been ordered. She has been started on an aspirin. She is on a statin medication as well. (2) End stage renal failure on dialysis Is this a current diagnosis for this admission?: Yes Plan: Dr. Neumann has been consulted and will dialyze the patient today. (3) Hypertension Is this a current diagnosis for this admission?: Yes Plan: Her blood pressures are little elevated. We will allow for permissive hypertension today. (4) Hyperlipidemia Plan: I will increase her atorvastatin to 80 mg for now. (5) Hypoxemia Is this a current diagnosis for this admission?: Yes Plan: The patient's oxygen saturations are slightly low in the emergency room. She has been placed on oxygen. She is not acutely wheezing. She may be walking around somewhat hypoxic at home at baseline. She does not appear to be acutely short of breath. I will start her on breathing treatments and we will continue her home regimen. (6) COPD (chronic obstructive pulmonary disease) Is this a current diagnosis for this admission?: Yes Plan: No evidence of acute exacerbation although she is mildly hypoxic. She will continue her home regimen and breathing treatments here in the hospital. (7) Hypothyroidism Is this a current diagnosis for this admission?: Yes Plan: Continue Synthroid (8) Hypokalemia Is this a current diagnosis for this admission?: Yes Plan: I will defer to nephrology to manage her electrolytes. - Time Time Spent: 50 to 70 Minutes - Inpatient Certification Based on my medical assessment, after consideration of the patient's comorbidities, presenting symptoms, or acuity I expect that the services needed warrant INPATIENT care.: Yes I certify that my determination is in accordance with my understanding of Medicare's requirements for reasonable and necessary INPATIENT services [42 CFR 412.3e].: Yes Medical Necessity: Other - The patient will be placed in observation in the hospital. I expect her to spend less than one midnight at this point. She will be dialyzed this afternoon and hopefully we can complete her workup. We will have physical therapy see her and make sure she can ambulate. Hopefully she can be discharged home tomorrow afternoon.
[2017-06-13] MEDS: IPRATROPIUM/ALBUTEROL 0.5-2.5 MG/3 ML AMPUL NEB SCH (20:37)
--- NOTE | 2017-06-13 21:46 | RADIOLOGY REPORT (SQ) ---
EXAM DESCRIPTION: MRI HEAD WITHOUT COMPLETED DATE/TIME: 06/13/2017 9:37 pm REASON FOR STUDY: cva COMPARISON: 2014 and TECHNIQUE: Multiplanar imaging includes non-contrasted T1, T2, FLAIR, and diffusion with ADC map seq uences. Images stored on PACS. LIMITATIONS: None. FINDINGS: ANATOMY: No anomalies. Normal vascular flow voids. Pituitary fossa normal. CSF SPACES: Atrophy induced prominence of ventricles and CSF spaces. CEREBRUM: High signal intensity lesions scattered throughout the white matter on FLAIR imaging with d istribution suggesting micro-vascular ischemic changes. No evidence of hemorrhage, mass, or extraaxi al fluid collection. POSTERIOR FOSSA: No signal alteration. No hemorrhage. No edema, masses or mass effect. Internal ann marie tory canals, cerebello-pontine angles, mastoids normal. DIFFUSION IMAGING: Negative for acute or sub-acute infarction. ORBITS: No masses. Globes normal. PARANASAL SINUSES: No fluid levels. Mucosa normal. OTHER: No other significant finding. IMPRESSION: ATROPHY AND CHRONIC MICRO-VASCULAR ISCHEMIC CHANGES. OTHERWISE NORMAL MRI OF THE BRAIN W ITHOUT INTRAVENOUS GADOLINIUM CONTRAST. EVIDENCE OF ACUTE STROKE: NO. TECHNICAL DOCUMENTATION: JOB ID: [id number] [employer]- All Rights Reserved
[2017-06-13] MEDS ORDERED: ATORVASTATIN CALCIUM 40 MG TABLET PO SCH (22:00)
[2017-06-13] MEDS ORDERED: FUROSEMIDE 20 MG TABLET PO ONE (22:00)
[2017-06-13] MEDS ORDERED: CALCIUM ACETATE 667 MG CAPSULE PO ONE (22:00)
[2017-06-13] MEDS: ATORVASTATIN CALCIUM 40 MG TABLET PO SCH (22:51)
[2017-06-13] MEDS: FLUTICASONE/SALMETEROL DISKUS 250-50 MCG/DOSE IH SCH (22:53)
[2017-06-14 04:57] LABS: ABSOLUTE BASOPHILS # (AUTO) 0.1 10^3/uL (0.0-0.2); ABSOLUTE LYMPHOCYTES (AUTO) 1.2 10^3/uL (0.5-4.7); ABSOLUTE MONOCYTES (AUTO) 0.6 10^3/uL (0.1-1.4); ABSOLUTE NEUT (AUTO) 4.4 10^3/uL (1.7-8.2); EOSINOPHILS % (AUTO) 0.4 % (0-6); HEMATOCRIT 35.1 % (36.0-47.0); HEMOGLOBIN 12.6 g/dL (12.0-15.5); HGB HCT DIFFERENCE 2.7; LYMPHOCYTES % (AUTO) 19.4 % (13-45); MEAN CORPUSCULAR HEMOGLOBIN 32.7 pg (27.0-33.4); MEAN CORPUSCULAR HGB CONC 35.8 g/dL (32.0-36.0); MEAN CORPUSCULAR VOLUME 91 fl (80-97); RED BLOOD COUNT 3.85 10^6/uL (3.72-5.28); RED CELL DISTRIBUTION WIDTH 13.6 % (11.5-14.0); SEGMENTED NEUTROPHILS % (AUTO) 69.2 % (42-78); WHITE BLOOD COUNT 6.3 10^3/uL (4.0-10.5)
[2017-06-14 05:21] LABS: CHOLESTEROL 93.52 mg/dL (0-200); Direct HDL 49 mg/dL (>40); TRIGLYCERIDES 54 mg/dL (<150)
[2017-06-14 05:32] LABS: DIRECT LDL 35 mg/dL (<100)
[2017-06-14] MEDS ORDERED: LEVOTHYROXINE SODIUM 0.088 MG TABLET PO SCH ×2 (06:00→10:00)
[2017-06-14] MEDS: LEVOTHYROXINE SODIUM 0.1 MG TABLET PO SCH (06:07)
[2017-06-14] MEDS: IPRATROPIUM/ALBUTEROL 0.5-2.5 MG/3 ML AMPUL NEB SCH ×3 (07:56→20:44)
[2017-06-14] MEDS ORDERED: METOPROLOL SUCCINATE 50 MG TAB.SR.24H PO SCH (10:00)
[2017-06-14] MEDS ORDERED: ASPIRIN 81 MG TABLET, CHEWABLE PO SCH (10:00)
[2017-06-14] MEDS: ASPIRIN 325 MG TABLET, ENT COATED PO SCH (10:01)
[2017-06-14] MEDS: FEBUXOSTAT 40 MG TABLET PO SCH (10:01)
[2017-06-14] MEDS: FUROSEMIDE 20 MG TABLET PO SCH ×2 (10:01→17:55)
[2017-06-14] MEDS: CALCIUM ACETATE 667 MG CAPSULE PO SCH ×3 (10:01→17:59)
[2017-06-14] MEDS: FLUTICASONE/SALMETEROL DISKUS 250-50 MCG/DOSE IH SCH ×2 (10:02→21:40)
[2017-06-14] MEDS: TIOTROPIUM BROMIDE DPI 5 CAP/KIT (18 MCG/CAP) IH SCH (10:02)
[2017-06-14] MEDS: ENOXAPARIN SODIUM INJ 30 MG/0.3 ML DISP.SYRIN SUBCUT SCH (10:03)
--- NOTE | 2017-06-14 15:27 | PDOC PROGRESS REPORT ---
Subjective Progress Note for:: 06/14/17 Subjective:: The patient has a history of a prior stroke with left-sided weakness. The patient is dialysis dependent. Apparently, she has been having issues with hypotension and her regional sales leader has discontinued many hypertension agents. In any event as she was showering yesterday she felt weak. Different family members give different stories. Her brother stated that she had acute left- sided weakness. Her daughter told me that it was bilateral. Her brother was fairly certain that she had acute left-sided weakness when EMS arrived. She is currently being worked up for TIA versus stroke. Her head CT and MRI do not demonstrate a new finding. Carotid Dopplers and echo are pending. The patient feels too weak and unstable to go home. She was unable to ambulate today for the nurses. Therefore, we will need to place a discharge planning consult for subacute rehab in a custodial facility. Reason For Visit: CVA Physical Exam Vital Signs: Temp Pulse Resp BP Pulse Ox 98.0 F 92 14 109/62 96 06/14/17 12:11 06/14/17 14:02 06/14/17 14:02 06/14/17 12:11 06/14/17 12:11 Intake & Output 06/13/17 06/14/17 06/15/17 06:59 06:59 06:59 Intake Total 0 591 Output Total 1600 Balance -1600 591 Weight 83.7 kg Additional comments: The patient is not in any distress. Her cognition and mentation are appropriate. She is wearing oxygen, but otherwise her facial appearance is normal. Her lungs are diminished but clear throughout. Her cardiac exam is regular. I do not appreciate any murmurs, gallops or rubs. The abdomen is soft , flat and benign. The lower extremities are warm to touch without edema. The patient clearly has weakness on the left side in both the upper and lower extremity. Results Laboratory Results: 06/14/17 04:32 06/14/17 06/14/17 04:32 04:32 WBC 6.3 RBC 3.85 Hgb 12.6 Hct 35.1 L MCV 91 MCH 32.7 MCHC 35.8 RDW 13.6 Plt Count 219 Seg Neutrophils % 69.2 Lymphocytes % 19.4 Monocytes % 10.0 Eosinophils % 0.4 Basophils % 1.0 Absolute Neutrophils 4.4 Absolute Lymphocytes 1.2 Absolute Monocytes 0.6 Absolute Eosinophils 0.0 Absolute Basophils 0.1 Triglycerides 54 Cholesterol 93.52 LDL Cholesterol Direct 35 VLDL Cholesterol 11.0 HDL Cholesterol 49 Impressions: Head MRI 06/13/17 00:00 IMPRESSION: ATROPHY AND CHRONIC MICRO-VASCULAR ISCHEMIC CHANGES. OTHERWISE NORMAL MRI OF THE BRAIN WITHOUT INTRAVENOUS GADOLINIUM CONTRAST. EVIDENCE OF ACUTE STROKE: NO. Chest X-Ray 06/13/17 11:44 IMPRESSION: NO ACUTE RADIOGRAPHIC FINDING IN THE CHEST. Head CT 06/13/17 11:44 IMPRESSION: Involutional changes of aging with chronic microvascular ischemia. No acute intracranial findings. EVIDENCE OF ACUTE STROKE: NO. Assessment & Plan - Diagnosis (1) Acute CVA (cerebrovascular accident) Is this a current diagnosis for this admission?: Yes Plan: There is not radiographic evidence of a new stroke. I think the patient's changes could be related to blood pressure fluctuations as the lesion appears to be in the same distribution as her previous stroke. Her blood pressure medications have been adjusted by her regional sales leader. I agree with increasing the dose of atorvastatin. We are waiting for the results of echo and Dopplers. Continue full dose aspirin. (2) End stage renal failure on dialysis Is this a current diagnosis for this admission?: Yes Plan: Patient will continue on her regular dialysis schedule while here. (3) Full code status Is this a current diagnosis for this admission?: Yes (4) COPD (chronic obstructive pulmonary disease) Is this a current diagnosis for this admission?: Yes Plan: The patient is not in exacerbation. Continue routine bronchodilators. - Time Time Spent with patient: 15-24 minutes Anticipated discharge: Acute Rehab - Inpatient Certification Medical Necessity: Need for Neurological Checks, Risk of Complication if Not Cared For in Hospital
[2017-06-14] MEDS: ATORVASTATIN CALCIUM 40 MG TABLET PO SCH (21:38)
[2017-06-15] MEDS: LEVOTHYROXINE SODIUM 0.1 MG TABLET PO SCH (06:34)
[2017-06-15] MEDS: METOPROLOL TARTRATE 25 MG TABLET PO SCH ×2 (08:35→21:54)
[2017-06-15] MEDS: FEBUXOSTAT 40 MG TABLET PO SCH (08:35)
[2017-06-15] MEDS: CALCIUM ACETATE 667 MG CAPSULE PO SCH ×3 (08:36→18:13)
[2017-06-15] MEDS: ASPIRIN 325 MG TABLET, ENT COATED PO SCH (08:36)
[2017-06-15] MEDS: TIOTROPIUM BROMIDE DPI 5 CAP/KIT (18 MCG/CAP) IH SCH (08:36)
[2017-06-15] MEDS: FUROSEMIDE 20 MG TABLET PO SCH ×2 (08:36→18:13)
[2017-06-15] MEDS: FLUTICASONE/SALMETEROL DISKUS 250-50 MCG/DOSE IH SCH ×2 (08:37→21:57)
[2017-06-15] MEDS: ENOXAPARIN SODIUM INJ 30 MG/0.3 ML DISP.SYRIN SUBCUT SCH (08:37)
[2017-06-15] MEDS: IPRATROPIUM/ALBUTEROL 0.5-2.5 MG/3 ML AMPUL NEB SCH ×3 (08:42→19:39)
--- NOTE | 2017-06-15 11:13 | PDOC PROGRESS REPORT ---
Subjective Progress Note for:: 06/15/17 Subjective:: The patient has a history of a prior stroke with left-sided weakness. The patient is dialysis dependent. Apparently, she has been having issues with hypotension and her contracting officer has discontinued many hypertension agents. In any event as she was showering yesterday she felt weak. Different family members give different stories. Her brother stated that she had acute left- sided weakness. Her daughter told me that it was bilateral. Her brother was fairly certain that she had acute left-sided weakness when EMS arrived. She is currently being worked up for TIA versus stroke. Her head CT and MRI do not demonstrate a new finding. Carotid Dopplers and echo are pending. The patient feels too weak and unstable to go home. She was unable to ambulate yesterday for the nurses. Therefore, we will need to place a discharge planning consult for subacute rehab in a [place] [facility] facility. Today, the patient told me that she is feeling better. She slept well but she was up urinating frequently. She has not yet been OOB today. She has not tried to ambulate today. Reason For Visit: CVA Physical Exam Vital Signs: Temp Pulse Resp BP Pulse Ox 97.7 F 73 14 119/72 90 L 06/15/17 07:56 06/15/17 08:37 06/15/17 08:37 06/15/17 07:56 06/15/17 08:37 Intake & Output 06/14/17 06/15/17 06/16/17 06:59 06:59 06:59 Intake Total 0 1294 Output Total 1600 1350 Balance -1600 -56 Weight 83.7 kg 83.6 kg Additional comments: The patient is sitting up in bed. Her cognition and mentation are normal. Her facial appearance is normal. Her lungs demonstrate a few scattered crackles only in the posterior lung lam at the bases. Otherwise, her lung lam are clear. Her cardiac exam demonstrates a regular rate and rhythm without murmurs , gallops or rubs. The abdomen is soft and flat. Bowel sounds are present. There is no guarding or rebound noted and there are no hernias or masses present. The lower extremities are warm to touch. Trace edema is present. The skin is without lesions or rashes. The patient continues to have left- sided weakness in both the left upper extremity and left lower extremity. This is unchanged from yesterday. Results Laboratory Results: 06/14/17 04:32 Impressions: Head MRI 06/13/17 00:00 IMPRESSION: ATROPHY AND CHRONIC MICRO-VASCULAR ISCHEMIC CHANGES. OTHERWISE NORMAL MRI OF THE BRAIN WITHOUT INTRAVENOUS GADOLINIUM CONTRAST. EVIDENCE OF ACUTE STROKE: NO. Chest X-Ray 06/13/17 11:44 IMPRESSION: NO ACUTE RADIOGRAPHIC FINDING IN THE CHEST. Head CT 06/13/17 11:44 IMPRESSION: Involutional changes of aging with chronic microvascular ischemia. No acute intracranial findings. EVIDENCE OF ACUTE STROKE: NO. Assessment & Plan - Diagnosis (1) Acute CVA (cerebrovascular accident) Is this a current diagnosis for this admission?: Yes Plan: There is not radiographic evidence of a new stroke. I think the patient's changes could be related to blood pressure fluctuations as the lesion appears to be in the same distribution as her previous stroke. Her blood pressure medications have been adjusted by her contracting officer. I agree with increasing the dose of atorvastatin. We are waiting for the results of echo and Dopplers. Continue full dose aspirin. (2) End stage renal failure on dialysis Is this a current diagnosis for this admission?: Yes Plan: Patient will continue on her regular dialysis schedule while here. (3) Full code status Is this a current diagnosis for this admission?: Yes (4) COPD (chronic obstructive pulmonary disease) Is this a current diagnosis for this admission?: Yes Plan: The patient is not in exacerbation. Continue routine bronchodilators. (5) Debility Is this a current diagnosis for this admission?: Yes Plan: The patient is too debilitated to go home. She is unable to ambulate without assistance. She is at risk for falls. A discharge planning consult has been placed and the patient agrees to go to acute rehabilitation. - Time Time Spent with patient: 15-24 minutes - Inpatient Certification Medical Necessity: Need for Neurological Checks, Risk of Complication if Not Cared For in Hospital
[2017-06-15] MEDS: ATORVASTATIN CALCIUM 40 MG TABLET PO SCH (21:54)
[2017-06-16] MEDS ORDERED: NORMAL SALINE 1000 ML 1,000 ML IV PRN (05:00)
[2017-06-16] MEDS: LEVOTHYROXINE SODIUM 0.1 MG TABLET PO SCH (05:52)
[2017-06-16 07:03] LABS: ABSOLUTE BASOPHILS # (AUTO) 0.1 10^3/uL (0.0-0.2); ABSOLUTE EOSINOPHILS # (AUTO) 0.3 10^3/uL (0.0-0.6); ABSOLUTE LYMPHOCYTES (AUTO) 1.4 10^3/uL (0.5-4.7); ABSOLUTE MONOCYTES (AUTO) 0.5 10^3/uL (0.1-1.4); ABSOLUTE NEUT (AUTO) 3.7 10^3/uL (1.7-8.2); BASOPHILS % (AUTO) 1.4 % (0-2); EOSINOPHILS % (AUTO) 5.3 % (0-6); HEMATOCRIT 35.7 % (36.0-47.0); HEMOGLOBIN 12.4 g/dL (12.0-15.5); HGB HCT DIFFERENCE 1.5; LYMPHOCYTES % (AUTO) 23.7 % (13-45); MEAN CORPUSCULAR HEMOGLOBIN 31.9 pg (27.0-33.4); MEAN CORPUSCULAR HGB CONC 34.7 g/dL (32.0-36.0); MEAN CORPUSCULAR VOLUME 92 fl (80-97); MONOCYTES % (AUTO) 7.8 % (3-13); RED BLOOD COUNT 3.88 10^6/uL (3.72-5.28); RED CELL DISTRIBUTION WIDTH 13.6 % (11.5-14.0); SEGMENTED NEUTROPHILS % (AUTO) 61.8 % (42-78); WHITE BLOOD COUNT 5.9 10^3/uL (4.0-10.5)
[2017-06-16 07:12] LABS: ANION GAP 13 (5-19); BLOOD UREA NITROGEN 32 mg/dL (7-20); CALCIUM 9.2 mg/dL (8.4-10.2); CARBON DIOXIDE 24 mmol/L (22-30); CHLORIDE 104 mmol/L (98-107); GLUCOSE 122 mg/dL (75-110); MAGNESIUM 1.8 mg/dL (1.6-2.3); POTASSIUM 3.4 mmol/L (3.6-5.0); SODIUM 140.9 mmol/L (137-145)
[2017-06-16] MEDS: IPRATROPIUM/ALBUTEROL 0.5-2.5 MG/3 ML AMPUL NEB SCH ×3 (08:21→19:56)
[2017-06-16] MEDS: FEBUXOSTAT 40 MG TABLET PO SCH (08:28)
--- NOTE | 2017-06-16 13:34 | Progress Note ---
Provider Note Provider Note: Patient has also been demonstrated to have mild hematuria. This should be followed up after discharge.
--- NOTE | 2017-06-16 13:34 | PDOC PROGRESS REPORT ---
Subjective Progress Note for:: 06/16/17 Subjective:: The patient has a history of a prior stroke with left-sided weakness. The patient is dialysis dependent. Apparently, she has been having issues with hypotension and her commercial baker helper has discontinued many hypertension agents. In any event, on the day of admission she felt weak while she was showering. Different family members give different stories. Her brother stated that she had acute left-sided weakness. Her daughter told me that it was bilateral. Her brother was fairly certain that she had acute left-sided weakness when EMS arrived. She is currently being worked up for TIA versus stroke. Her head CT and MRI do not demonstrate a new finding. Carotid Dopplers and echo are pending. The patient feels too weak and unstable to go home. While in the hospital she has been unable to ambulate. Therefore, a discharge planning consult has been placed. The plan will be for the patient to go to subacute rehab in the local area. Today, I saw the patient while she was in dialysis. She states that she is feeling much better. Her dizziness and lightheadedness are improved. Notes that the only change that I made during this hospitalization so far is to decrease her metoprolol from 100 once a day to 25 mg twice daily. She worked with physical therapy yesterday but did not ambulate. She worked on some exercises at the side of the bed. Reason For Visit: CVA Physical Exam Vital Signs: Temp Pulse Resp BP Pulse Ox 97.4 F 74 16 144/83 H 95 06/16/17 07:43 06/16/17 08:21 06/16/17 08:21 06/16/17 07:43 06/16/17 08:21 Intake & Output 06/15/17 06/16/17 06/17/17 06:59 06:59 06:59 Intake Total 1294 1437 Output Total 1350 1650 Balance -56 -213 Weight 83.6 kg 83.2 kg Additional comments: The patient is looking well. She is in good spirits. Her mentation and cognition are appropriate. Her facial appearance is normal. She does have a lesion on the upper lip on the right side. She told me that this was a skin cancer that her decision analyst just removed last week. It is healing well. Her lungs are noted to be clear bilaterally. Breath sounds are somewhat diminished in the bases posteriorly. Her cardiac exam is regular without murmurs, gallops or rubs. The abdomen is soft and flat. Bowel sounds are noted in all 4 quadrants. The lower extremities demonstrate trace pedal edema. The skin is warm, dry and intact. No lesions or rashes are seen except for the one above the lip on the right. Results Laboratory Results: 06/16/17 06:09 06/16/17 06:09 06/16/17 06/16/17 06:09 06:09 WBC 5.9 RBC 3.88 Hgb 12.4 Hct 35.7 L MCV 92 MCH 31.9 MCHC 34.7 RDW 13.6 Plt Count 208 Seg Neutrophils % 61.8 Lymphocytes % 23.7 Monocytes % 7.8 Eosinophils % 5.3 Basophils % 1.4 Absolute Neutrophils 3.7 Absolute Lymphocytes 1.4 Absolute Monocytes 0.5 Absolute Eosinophils 0.3 Absolute Basophils 0.1 Sodium 140.9 Potassium 3.4 L Chloride 104 Carbon Dioxide 24 Anion Gap 13 BUN 32 H Creatinine 3.20 H Est GFR ( Amer) 17 L Est GFR (Non-Af Amer) 14 L Glucose 122 H Calcium 9.2 Phosphorus 3.0 Magnesium 1.8 Impressions: Head MRI 06/13/17 00:00 IMPRESSION: ATROPHY AND CHRONIC MICRO-VASCULAR ISCHEMIC CHANGES. OTHERWISE NORMAL MRI OF THE BRAIN WITHOUT INTRAVENOUS GADOLINIUM CONTRAST. EVIDENCE OF ACUTE STROKE: NO. Chest X-Ray 06/13/17 11:44 IMPRESSION: NO ACUTE RADIOGRAPHIC FINDING IN THE CHEST. Head CT 06/13/17 11:44 IMPRESSION: Involutional changes of aging with chronic microvascular ischemia. No acute intracranial findings. EVIDENCE OF ACUTE STROKE: NO. Assessment & Plan - Diagnosis (1) Acute CVA (cerebrovascular accident) Is this a current diagnosis for this admission?: Yes Plan: There is no radiographic evidence of a new stroke. I think the patient's changes could be related to blood pressure fluctuations as the lesion appears to be in the same distribution as her previous stroke. Her blood pressure medications have been adjusted by her commercial baker helper. I agree with increasing the dose of atorvastatin. We are waiting for the results of echo and Dopplers. Continue full dose aspirin. (2) End stage renal failure on dialysis Is this a current diagnosis for this admission?: Yes Plan: Patient will continue on her regular dialysis schedule while here. (3) Full code status Is this a current diagnosis for this admission?: Yes (4) COPD (chronic obstructive pulmonary disease) Is this a current diagnosis for this admission?: Yes Plan: The patient is not in exacerbation. Continue routine bronchodilators. (5) Debility Is this a current diagnosis for this admission?: Yes Plan: The patient is too debilitated to go home. She is unable to ambulate without assistance. She is at risk for falls. A discharge planning consult has been placed and the patient agrees to go to acute rehabilitation. - Time Time Spent with patient: 15-24 minutes - Inpatient Certification Medical Necessity: Significant Comorbidiites Make Outpatient Treatment Too Risky , Risk of Complication if Not Cared For in Hospital
[2017-06-16] MEDS: TIOTROPIUM BROMIDE DPI 5 CAP/KIT (18 MCG/CAP) IH SCH (13:53)
[2017-06-16] MEDS: FLUTICASONE/SALMETEROL DISKUS 250-50 MCG/DOSE IH SCH ×2 (13:54→21:38)
[2017-06-16] MEDS: METOPROLOL TARTRATE 25 MG TABLET PO SCH ×2 (13:55→21:38)
[2017-06-16] MEDS: ASPIRIN 325 MG TABLET, ENT COATED PO SCH (13:56)
[2017-06-16] MEDS: CALCIUM ACETATE 667 MG CAPSULE PO SCH ×3 (13:56→18:26)
[2017-06-16] MEDS: FUROSEMIDE 20 MG TABLET PO SCH ×2 (13:57→18:26)
[2017-06-16] MEDS: ENOXAPARIN SODIUM INJ 30 MG/0.3 ML DISP.SYRIN SUBCUT SCH (13:57)
--- NOTE | 2017-06-16 16:14 | RADIOLOGY REPORT (SQ) ---
EXAM DESCRIPTION: CAROTID DOPPLER COMPLETED DATE/TIME: 06/16/2017 4:00 pm REASON FOR STUDY: cva COMPARISON: MRI brain 06/13/2017 CT brain 06/13/2017 Carotid Doppler 11/07/2014 TECHNIQUE: Grayscale ultrasound, Doppler velocity and spectra, and color Doppler images acquired of the extra-cranial carotid and vertebral arteries. Images stored on PACS. LIMITATIONS: None. FINDINGS: RIGHT CAROTID CCA Velocities: Within normal limits. Moderate calcific plaque at the distal common carotid artery. ICA Velocities Peak systolic 1.5 m/s. End diastolic 0.12 m/s. Proximal ICA/CCA peak systolic ratio 1.3. Mild calcific plaque is present at the right carotid bifurcation. Velocities obtained just distal to the calcific plaque suggest against flow significant stenosis LEFT CAROTID CCA Velocities: Within normal limits. ICA Velocities Peak systolic 1.2 m/s. End diastolic 0.11 m/s. Proximal ICA/CCA peak systolic ratio 1.1. Dense calcific plaque is present at the left carotid bifurcation. Velocities obtained just distal to the calcific plaque suggest against flow significant stenosis. VERTEBRAL ARTERIES: Retrograde flow right vertebral artery. Antegrade flow left vertebral artery. SUBCLAVIAN ARTERIES: Not evaluated OTHER: No other significant finding. IMPRESSION: 50 to 69% stenosis of the right proximal internal carotid artery by velocity criteria. Less than 50% stenosis of the left proximal internal carotid artery by velocity criteria. Retrograde flow right vertebral artery, similar compared to 11/07/2014 COMMENT: Quality ID #[id number]: Velocity criteria are extrapolated from the diameter data as defined by t he Society of Radiologists in Ultrasound Consensus Conference. Radiology 2003: 229; 340-346. TECHNICAL DOCUMENTATION: JOB ID: [id number]- All Rights Reserved
--- NOTE | 2017-06-16 19:21 | XCELERA REPORT ---
[address] [address] Transthoracic Echocardiogram Report Name: EZRA SUERO Age: 77 yrs Gender: Female : 1940 Patient Status: Inpatient Patient Location: [address] [place] [address] Study Date: 06/16/2017 03:17 PM Height: 62 in Weight: 171 lb BSA: 1.8 m2 Reason For Study: cva Ordering Physician: BISHNU JALLOH Performed By: Vonda Cheung Interpretation Summary NO cardiogenic emboli seen to cause stroke. LA is mod enlarged, RUBINA 46cc/m2 with no LA clot obvious. Mild AV sclerosis, no or AR. No MV vegetations, no MS and no MR No LV clot . Normal LVEF 65-70% with only inferolateral and inferior hypokinesis. No ASD. MMode/2D Measurements & Calculations RVDd: 3.6 cm LVIDd: 5.0 cm FS: 36.0 % Ao root diam: IVSd: 0.94 cm LVIDs: 3.2 cm EDV(Teich): 2.9 cm LVPWd: 0.91 cm 116.6 ml Ao root area: ESV(Teich): 40.4 ml 6.6 cm2 EF(Teich): 65.4 % EDV(MOD-sp4): SV(MOD-sp4): 74.3 ml 45.1 ml ESV(MOD-sp4): 29.2 ml EF(MOD-sp4): 60.7 % Doppler Measurements & Calculations MV E max cuong: MV dec slope: Ao V2 max: LV V1 max P.0 cm/sec 152.3 cm/sec 5.3 mmHg MV A max cuong: 538.4 cm/sec2 Ao max PG: LV V1 max: 98.2 cm/sec MV dec time: 9.3 mmHg 115.4 cm/sec MV E/A: 0.77 0.14 sec PA V2 max: TR max cuong: 94.6 cm/sec 304.4 cm/sec PA max PG: TR max P.1 mmHg 3.6 mmHg Left Ventricle The left ventricle is normal in size, thickness and function. There is moderate concentric left ventricular hypertrophy. The left ventricular ejection fraction is normal. LV EF is 70%. Doppler measurements suggest impaired left ventricular relaxation, which is associated with grade I/IV or mild diastolic dysfunction. There is inferoseptal wall moderate hypokinesis. There is inferior wall mild hypokinesis. There is no thrombus. Right Ventricle The right ventricle is mildly dilated. Atria The right atrium is dilated. The left atrial size is normal. No left atrial mass or thrombus visualized. The interatrial septum is intact with no evidence for an atrial septal defect. Mitral Valve There is mild mitral annular calcification. There is no evidence of mitral valve prolapse. There is no mitral valve stenosis. There is no mitral regurgitation noted. Aortic Valve The aortic valve opens well. The aortic valve is sclerotic and shows some degree of functional abnormality. The aortic valve is trileaflet. There is no aortic valvular vegetation. There is no aortic valve stenosis. No aortic regurgitation is present. Tricuspid Valve The tricuspid is normal in structure and function. There is a mild amount of tricuspid regurgitation. Best estimated RVSP is approximately 48 mm/Hg. Pulmonic Valve The pulmonic valve is not well visualized. There is a trace or physiologic amount of pulmonic regurgitation. Great Vessels There is aortic root sclerosis/calcification. Effusions Minimal pericardial effusion. I WMSI = 1.38 % Normal = 63 Segments Size X - Cannot 1 - Normal 2 - 3 - Akinetic4 - 1-2 small Interpret Hypokinetic Dyskinetic 3-5 moderate 5 - 6-14 large Aneurysmal 15-16 diffuse : BISHNU JALLOH > Dottie Catarino
--- NOTE | 2017-06-16 20:45 | PDOC PROGRESS REPORT ---
Subjective Progress Note for:: 06/16/17 Subjective:: I saw the patient during dialysis this morning at around 8:40 AM. She looks better. She does not really have any complaints. She is being worked up for possible cause of her stroke. Reason For Visit: ESRD Physical Exam Vital Signs: Temp Pulse Resp BP Pulse Ox 98.4 F 83 16 96/58 L 91 L 06/16/17 15:46 06/16/17 19:57 06/16/17 19:57 06/16/17 15:46 06/16/17 19:57 Intake & Output 06/15/17 06/16/17 06/17/17 06:59 06:59 06:59 Intake Total 1294 1437 650 Output Total 1350 1650 500 Balance -56 -213 150 Weight 83.6 kg 83.2 kg Vital signs during dialysis: Blood pressure 152/84, heart rate of 83, blood flow rate of 450 mL/min, dialysate flow rate of 800 mL/min. Exam: General appearance: PRESENT: no acute distress, cooperative, well-developed, well-nourished Head exam: PRESENT: atraumatic, normocephalic Eye exam: PRESENT: conjunctiva pink, PERRLA. ABSENT: scleral icterus Neck exam: ABSENT: JVD Respiratory exam: PRESENT: Normal breath sounds. ABSENT: crackles, rales, rhonchi, unlabored, wheezes Cardiovascular exam: PRESENT: Regular rate rhythm -+S1, +S2. ABSENT: diastolic murmur, systolic murmur GI/Abdominal exam: PRESENT: normal bowel sounds, soft. ABSENT: guarding, mass, tenderness Extremities exam: ABSENT: No edema Neurological exam: PRESENT: alert, awake, oriented to person, place and time. Her left arm strength seems to be improved around 4/5 in her left lower extremity 3/5. Skin exam: PRESENT: dry, warm, Results Laboratory Results: 06/16/17 06:09 06/16/17 06:09 06/16/17 06/16/17 06:09 06:09 WBC 5.9 RBC 3.88 Hgb 12.4 Hct 35.7 L MCV 92 MCH 31.9 MCHC 34.7 RDW 13.6 Plt Count 208 Seg Neutrophils % 61.8 Lymphocytes % 23.7 Monocytes % 7.8 Eosinophils % 5.3 Basophils % 1.4 Absolute Neutrophils 3.7 Absolute Lymphocytes 1.4 Absolute Monocytes 0.5 Absolute Eosinophils 0.3 Absolute Basophils 0.1 Sodium 140.9 Potassium 3.4 L Chloride 104 Carbon Dioxide 24 Anion Gap 13 BUN 32 H Creatinine 3.20 H Est GFR ( Amer) 17 L Est GFR (Non-Af Amer) 14 L Glucose 122 H Calcium 9.2 Phosphorus 3.0 Magnesium 1.8 Impressions: Head MRI 06/13/17 00:00 IMPRESSION: ATROPHY AND CHRONIC MICRO-VASCULAR ISCHEMIC CHANGES. OTHERWISE NORMAL MRI OF THE BRAIN WITHOUT INTRAVENOUS GADOLINIUM CONTRAST. EVIDENCE OF ACUTE STROKE: NO. Chest X-Ray 06/13/17 11:44 IMPRESSION: NO ACUTE RADIOGRAPHIC FINDING IN THE CHEST. Head CT 06/13/17 11:44 IMPRESSION: Involutional changes of aging with chronic microvascular ischemia. No acute intracranial findings. EVIDENCE OF ACUTE STROKE: NO. Carotid Doppler Study 06/16/17 00:00 IMPRESSION: 50 to 69% stenosis of the right proximal internal carotid artery by velocity criteria. Less than 50% stenosis of the left proximal internal carotid artery by velocity criteria. Retrograde flow right vertebral artery, similar compared to 11/07/2014 Assessment & Plan - Diagnosis (1) End stage renal failure on dialysis Is this a current diagnosis for this admission?: Yes Plan: We did dialysis on this patient today. Patient was monitored toward closely. We did dialysis today for 3 hours, using the patient's left arm AV fistula, with 3 potassium bath, blood flow rate of 450 mL per minute, dialysate flow rate of 800 mL per minute, ultrafiltration 1-2 L as tolerated, no heparin and no Procrit during dialysis. If the patient gets discharged to rehab tomorrow, her next hemodialysis will be in her regular dialysis time at [facility] on Friday. (2) Acute CVA (cerebrovascular accident) Is this a current diagnosis for this admission?: Yes Plan: Patient has improving of left-sided weakness. Agree with some acute rehab posthospitalization. (3) Hypertension Is this a current diagnosis for this admission?: Yes Plan: Resume patient's home blood pressure medications. Her blood pressure is usually well controlled with her current home medications. This may be adjusted depending on her blood pressure here in the hospital. I will adjust the patient's Lasix to be given only on non-dialysis days at 7 AM and 5 PM. (4) Coronary artery disease Is this a current diagnosis for this admission?: Yes - Time Time with patient: 15-25 minutes
[2017-06-16] MEDS: ATORVASTATIN CALCIUM 40 MG TABLET PO SCH (21:38)
[2017-06-17] MEDS: LEVOTHYROXINE SODIUM 0.1 MG TABLET PO SCH (05:35)
[2017-06-17] MEDS ORDERED: FUROSEMIDE 20 MG TABLET PO SCH (07:00)
[2017-06-17] MEDS: FEBUXOSTAT 40 MG TABLET PO SCH (07:59)
[2017-06-17] MEDS: IPRATROPIUM/ALBUTEROL 0.5-2.5 MG/3 ML AMPUL NEB SCH ×2 (08:04→13:42)
[2017-06-17] MEDS: METOPROLOL TARTRATE 25 MG TABLET PO SCH (11:04)
[2017-06-17] MEDS: ASPIRIN 325 MG TABLET, ENT COATED PO SCH (11:04)
[2017-06-17] MEDS: CALCIUM ACETATE 667 MG CAPSULE PO SCH (11:04)
[2017-06-17] MEDS: ENOXAPARIN SODIUM INJ 30 MG/0.3 ML DISP.SYRIN SUBCUT SCH (11:06)
[2017-06-17] MEDS: FLUTICASONE/SALMETEROL DISKUS 250-50 MCG/DOSE IH SCH (11:06)
[2017-06-17] MEDS: TIOTROPIUM BROMIDE DPI 5 CAP/KIT (18 MCG/CAP) IH SCH (11:06)
--- NOTE | 2017-06-17 11:25 | PDOC TRANSFER SUMMARY ---
General - Admit/Disc Date/PCP Admission Date/Primary Care Provider: 06/13/17 14:04 GIANNA BOURGEOIS MD Discharge Date: 06/17/17 - Discharge Diagnosis (1) COPD (chronic obstructive pulmonary disease) Is this a current diagnosis for this admission?: Yes Summary: This remained stable. (2) End stage renal failure on dialysis Is this a current diagnosis for this admission?: Yes (3) Hematuria Is this a current diagnosis for this admission?: Yes Summary: Mild hematuria. This should be followed up as an outpatient. (4) Full code status Is this a current diagnosis for this admission?: Yes (5) Stroke Is this a current diagnosis for this admission?: No Summary: The patient had transient left-sided weakness on admission which was felt to be secondary to hypotension. There was no radiographic evidence of new stroke. Her weakness was felt to be due to blood pressure fluctuations and her metoprolol dose was cut down to 25 mg. - Additional Information Resuscitation Status: Full Code Discharge Diet: Other (Comments) - Dialysis diet Discharge Activity: Activity As Tolerated Home Medications: Atorvastatin Calcium [Lipitor 40 mg Tablet] 40 mg PO QHS 08/14/13 Furosemide [Lasix 20 mg Tablet] 20 mg PO SUTUTHSA@10 08/14/13 Levothyroxine Sodium [Synthroid 0.088 mg Tablet] 88 mcg PO DAILY 08/14/13 Nitroglycerin [Nitrostat 0.4 mg (1/150 Gr) Tabs 25/Bottle] 1 tab SL Q5MP PRN 02/17 Tiotropium [place] [Spiriva Handihaler 18 mcg/dose (30 Dose)] 1 cap IH DAILY 02/17 Albuterol Sulfate [Proair HFA] 2 puff IH Q6HP PRN 06/13/17 Calcium Acetate 667 mg PO MEALS 06/13/17 Febuxostat [Uloric 40 mg Tablet] 40 mg PO QAM 06/13/17 Fluticasone/Salmeterol [Advair 250-50 Diskus 14 Dose/Diskus] 1 inh IH Q12 Aspirin [Ecotrin 325 mg EC Tablet] 325 mg PO DAILY tabec 06/17/17 Metoprolol Tartrate [Lopressor 25 mg Tablet] 25 mg PO Q12 tablet 06/17/17 History of Present Illness Admission Date/PCP: 06/13/17 14:04 GIANNA BOURGEOIS MD Hospital Course Hospital Course: 77-year-old female with a prior history of stroke with left-sided weakness was dialysis dependent. 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 On the day of admission she felt that her left side was weak she was having a shower. The history was not very accurate however she was brought in by EMS and was worked up for possible stroke. CT and MRI of the brain did not demonstrate any evidence of acute stroke. The patient was found to have generalized weakness and difficulty ambulating and was referred for longterm facility for subacute rehabilitation. During her hospital stay she also received dialysis. She is currently stable and ready for discharge. Physical Exam Vital Signs: Temp Pulse Resp BP Pulse Ox 98.0 F 80 18 119/58 L 93 06/17/17 04:46 06/17/17 08:04 06/17/17 08:04 06/17/17 04:46 06/17/17 08:04 Intake & Output 06/16/17 06/17/17 06/18/17 06:59 06:59 06:59 Intake Total 1437 922 Output Total 1650 1150 Balance -213 -228 Weight 83.2 kg 82.7 kg General appearance: PRESENT: no acute distress Eye exam: PRESENT: PERRLA Mouth exam: PRESENT: moist Respiratory exam: PRESENT: clear to auscultation ash[place] Cardiovascular exam: PRESENT: RRR GI/Abdominal exam: PRESENT: normal bowel sounds, soft. ABSENT: tenderness Rectal exam: PRESENT: deferred Results Laboratory Results: 06/16/17 06:09 06/16/17 06:09 Impressions: Head MRI 06/13/17 00:00 IMPRESSION: ATROPHY AND CHRONIC MICRO-VASCULAR ISCHEMIC CHANGES. OTHERWISE NORMAL MRI OF THE BRAIN WITHOUT INTRAVENOUS GADOLINIUM CONTRAST. EVIDENCE OF ACUTE STROKE: NO. Chest X-Ray 06/13/17 11:44 IMPRESSION: NO ACUTE RADIOGRAPHIC FINDING IN THE CHEST. Head CT 06/13/17 11:44 IMPRESSION: Involutional changes of aging with chronic microvascular ischemia. No acute intracranial findings. EVIDENCE OF ACUTE STROKE: NO. Carotid Doppler Study 06/16/17 00:00 IMPRESSION: 50 to 69% stenosis of the right proximal internal carotid artery by velocity criteria. Less than 50% stenosis of the left proximal internal carotid artery by velocity criteria. Retrograde flow right vertebral artery, similar compared to 11/07/2014 Echocardiogram was done June 16, 2017 no cardiogenic emboli were seen. Left ventricle was normal with 65-70% ejection fraction and inferolateral and inferior wall hypokinesis with no left ventricular clot. No mitral regurgitation or mitral stenosis. No aortic stenosis or aortic regurgitation. No atrial septal defect. Status: Imported from PACS Qualifiers [facility] BEING DISCHARGED WITH ANY OF THE FOLLOWING DIAGNOSIS?: No Plan Time Spent: Greater than 30 Minutes
[2017-06-17 14:01] VITALS: BP 128/72
== END 2017-06-17 14:07 | DRG 314 ==
LOC: ER 11:42 → 3W 14:04 → EH 14:04 → UNDOADMIN 14:04 → 3W 20:09 → EH 20:09
PROVIDERS: ADMIT Internal Medicine; ATTEND Internal Medicine
PROC: 5A1D70Z Performance of Urinary Filtration, Intermittent, Less than 6 Hours Per Day (ICD-10-PCS; principal; 2017-06-16)
DX: I95.9 Hypotension, unspecified (principal); N18.6 End stage renal disease; I12.0 Hypertensive chronic kidney disease with stage 5 chronic kidney disease or end stage renal disease; I69.154 Hemiplegia and hemiparesis following nontraumatic intracerebral hemorrhage affecting left non-dominant side; E87.6 Hypokalemia; I25.10 Atherosclerotic heart disease of native coronary artery without angina pectoris; J44.9 Chronic obstructive pulmonary disease, unspecified; E03.9 Hypothyroidism, unspecified; Z99.2 Dependence on renal dialysis; Z88.2 Allergy status to sulfonamides; Z88.8 Allergy status to other drugs, medicaments and biological substances; I25.2 Old myocardial infarction; Z90.49 Acquired absence of other specified parts of digestive tract; Z87.891 Personal history of nicotine dependence; Z82.49 Family history of ischemic heart disease and other diseases of the circulatory system; Z82.3 Family history of stroke
CPT/HCPCS: 36415; 70450; 70551; 71010; 80048; 80053; 80061; 81001; 82550; 82553; 82962; 83036; 83735; 84100; 84484; 85025; 85610; 85730; 93005; 93010; 93306; 93880; 94640; 99291; G8978-GP; G8979-GP; G8987-GO; G8988-GO; J1650; J3490; J7620

== ENCOUNTER → 2017-07-28 | Outpatient (CLI) | payer MEDICARE, OTHER ==
[2017-07-28 11:57] LABS: ALANINE AMINOTRANSFERASE 26 U/L (9-52); ALBUMIN 3.5 g/dL (3.5-5.0); ALKALINE PHOSPHATASE 91 U/L (38-126); ANION GAP 10 (5-19); ASPARTATE AMINO TRANSFERASE 21 U/L (14-36); BILIRUBIN,DIRECT 0.2 mg/dL (0.0-0.4); BILIRUBIN,TOTAL 0.9 mg/dL (0.2-1.3); BLOOD UREA NITROGEN 24 mg/dL (7-20); CALCIUM 9.6 mg/dL (8.4-10.2); CARBON DIOXIDE 27 mmol/L (22-30); CHLORIDE 104 mmol/L (98-107); CHOLESTEROL 115.16 mg/dL (0-200); GLUCOSE 78 mg/dL (75-110); POTASSIUM 3.8 mmol/L (3.6-5.0); SODIUM 141.2 mmol/L (137-145); TOTAL PROTEIN 5.9 g/dL (6.3-8.2); TRIGLYCERIDES 67 mg/dL (<150); URIC ACID 1.5 mg/dL (2.5-7.5)
[2017-07-28 12:08] LABS: DIRECT LDL 43 mg/dL (<100)
[2017-07-28 12:17] LABS: FREE T3 3.13 pg/mL (2.77-5.27); FREE T4 (FREE THYROXINE) 2.06 ng/dL (0.78-2.19)
[2017-07-28 12:30] LABS: THYROID STIMULATING HORMONE 5.93 uIU/mL (0.47-4.68)
== END ==
LOC: OD 10:21
PROVIDERS: ATTEND Family Medicine
DX: E03.9 Hypothyroidism, unspecified (principal); E78.5 Hyperlipidemia, unspecified; Z79.899 Other long term (current) drug therapy; M10.372 Gout due to renal impairment, left ankle and foot
CPT/HCPCS: 36415; 80048; 80061; 80076; 84439; 84443; 84481; 84550

== ENCOUNTER → 2017-08-02 | Outpatient (CLI) | payer MEDICARE, OTHER ==
--- NOTE | 2017-08-02 16:05 | RADIOLOGY REPORT (SQ) ---
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 TECHNIQUE: Sagittal and Axial imaging includes T1, T2, STIR and gradient echo sequences. LIMITATIONS: None. FINDINGS: ALIGNMENT: Normal. VERTEBRAE: Intact. BONE MARROW: Normal. No marrow replacement or reactive changes. DISCS: Disc space narrowing with disc osteophyte complex at C5-6. HARDWARE: None in the spine. CORD AND BASE OF BRAIN: Normal in size and signal intensity. SOFT TISSUES: No soft tissue masses. C1-C2: No significant spinal stenosis. C2-C3: No significant spinal stenosis or exit foraminal stenosis. C3-C4: No significant spinal stenosis or exit foraminal stenosis. C4-C5: No significant spinal stenosis or exit foraminal stenosis. C5-C6: Disc osteophyte complex effaces the anterior CSF space with cord contact but no flattening. P rominent uncovertebral spurs with relatively marked bilateral foraminal stenosis. C6-C7: No significant spinal stenosis or exit foraminal stenosis. C7-T1: No significant spinal stenosis or exit foraminal stenosis. UPPER THORACIC: Incompletely imaged. No significant spinal stenosis or exit foraminal stenosis. OTHER: No other significant finding. IMPRESSION: 1. Cervical spondylosis, most pronounced at C5-6 as above. TECHNICAL DOCUMENTATION: JOB ID: [id number] [employer]- All Rights Reserved
--- NOTE | 2017-08-02 16:15 | RADIOLOGY REPORT (SQ) ---
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 TECHNIQUE: Sagittal and Axial imaging includes T1, T2, STIR and gradient echo sequences. Coronal T2/ HASTE imaging. LIMITATIONS: None. FINDINGS: VISUALIZED UPPER ABDOMEN: Limited evaluation. No acute or suspicious findings suggested. SEGMENTATION: No transitional anatomy. The lowest well-developed disc space is labeled L5-S1. ALIGNMENT: Anatomic. VERTEBRAE: Intact. BONE MARROW: Minimal reactive marrow edema at L4-5 and L5-S1 along the endplates. DISC SIGNAL: Diminished signal throughout. Decreased height at L4-5 and L5-S1 particularly. POSTERIOR ELEMENTS: No pars defect. Mild multilevel degenerative facet overgrowth. HARDWARE: None in the spine. CORD AND CONUS: Normal in size and signal intensity. Conus at the appropriate level. SOFT TISSUES: No aortic aneurysm seen. No bulky retroperitoneal adenopathy or mass. No paraspinal mas s or fluid. L1-L2: No significant spinal stenosis or exit foraminal stenosis. L2-L3: No significant spinal stenosis or exit foraminal stenosis. L3-L4: No significant spinal stenosis or exit foraminal stenosis. L4-L5: Mild central narrowing with slight right foraminal stenosis at L4-5. L5-S1: Posterior spurring. No central stenosis. Moderate bilateral foraminal stenosis at least. LOWER THORACIC: Incompletely imaged. No stenosis seen. SACRUM: Visualized upper sacrum intact. OTHER: No other significant findings. IMPRESSION: 1. Multilevel lumbar spondylosis. No high-grade central stenosis. Foraminal narrowing as above. 2. No fracture or worrisome bone lesion. TECHNICAL DOCUMENTATION: JOB ID: [id number] [employer]- All Rights Reserved
== END ==
LOC: RAD 14:26
PROVIDERS: ATTEND Family Medicine
DX: M50.00 Cervical disc disorder with myelopathy, unspecified cervical region (principal); M51.06 Intervertebral disc disorders with myelopathy, lumbar region
CPT/HCPCS: 72141; 72148

== ENCOUNTER → 2017-08-12 | Day surgery (SDC) | payer MEDICARE, OTHER | LOC: CCL 10:56 | PROVIDERS: ATTEND Surgery | DX: R69 Illness, unspecified (principal) ==

== ENCOUNTER 2017-08-14 07:16 | Day surgery (SDC) | payer MEDICARE, OTHER ==
[2017-08-14] MEDS ORDERED: OXYCODONE-ACETAMINOPHEN 5-325 MG TABLET ONE (07:30)
[2017-08-14] MEDS ORDERED: DIAZEPAM 5 MG TABLET ONE (07:30)
[2017-08-14 07:55] LABS: ABSOLUTE BASOPHILS # (AUTO) 0.1 10^3/uL (0.0-0.2); ABSOLUTE EOSINOPHILS # (AUTO) 0.2 10^3/uL (0.0-0.6); ABSOLUTE MONOCYTES (AUTO) 0.6 10^3/uL (0.1-1.4); ABSOLUTE NEUT (AUTO) 2.9 10^3/uL (1.7-8.2); BASOPHILS % (AUTO) 1.2 % (0-2); EOSINOPHILS % (AUTO) 3.4 % (0-6); HEMATOCRIT 36.2 % (36.0-47.0); HEMOGLOBIN 12.8 g/dL (12.0-15.5); LYMPHOCYTES % (AUTO) 21.5 % (13-45); MEAN CORPUSCULAR HEMOGLOBIN 32.2 pg (27.0-33.4); MEAN CORPUSCULAR HGB CONC 35.3 g/dL (32.0-36.0); MEAN CORPUSCULAR VOLUME 91 fl (80-97); MONOCYTES % (AUTO) 12.2 % (3-13); PLATELET COUNT 256 10^3/uL (150-450); RED BLOOD COUNT 3.97 10^6/uL (3.72-5.28); RED CELL DISTRIBUTION WIDTH 14.1 % (11.5-14.0); SEGMENTED NEUTROPHILS % (AUTO) 61.7 % (42-78); TOTAL CELLS COUNTED % (AUTO) 100 %; WHITE BLOOD COUNT 4.7 10^3/uL (4.0-10.5)
[2017-08-14 08:17] LABS: ANION GAP 8 (5-19); BLOOD UREA NITROGEN 17 mg/dL (7-20); CALCIUM 9.3 mg/dL (8.4-10.2); CARBON DIOXIDE 30 mmol/L (22-30); CHLORIDE 104 mmol/L (98-107); GLUCOSE 90 mg/dL (75-110); POTASSIUM 3.5 mmol/L (3.6-5.0); SODIUM 142.4 mmol/L (137-145)
[2017-08-14] MEDS ORDERED: MIDAZOLAM 2 MG/2 ML INJ ONE (09:47)
[2017-08-14] MEDS ORDERED: LIDOCAINE 0.5% INJ-PF (5 MG/ML) 50 ML SDV ONE (09:47)
[2017-08-14] MEDS ORDERED: FENTANYL CITRATE INJ/PF 100 MCG/2 ML AMPUL ONE (09:47)
[2017-08-14] MEDS ORDERED: HEPARIN SOD (PORCINE) 5,000 UNIT/ML 1 ML SYRINGE ONE (09:48)
--- NOTE | 2017-08-14 11:29 | PDOC H&P ---
General Chief Complaint: This patient was referred across for angiogram, the goal is improving function of her fistula left brachiocephalic. - Current Medications/Allergies Home Medications: Atorvastatin Calcium [Lipitor 40 mg Tablet] 40 mg PO QHS 08/14/13 Furosemide [Lasix 20 mg Tablet] 20 mg PO SUTUTHSA@10 08/14/13 Levothyroxine Sodium [Synthroid 0.088 mg Tablet] 88 mcg PO DAILY 08/14/13 Nitroglycerin [Nitrostat 0.4 mg (1/150 Gr) Tabs 25/Bottle] 1 tab SL Q5MP PRN 02/17 Tiotropium [place] [Spiriva Handihaler 18 mcg/dose (30 Dose)] 1 cap IH DAILY 02/17 Albuterol Sulfate [Proair HFA] 2 puff IH Q6HP PRN 06/13/17 Calcium Acetate 667 mg PO MEALS 06/13/17 Febuxostat [Uloric 40 mg Tablet] 40 mg PO QAM 06/13/17 Fluticasone/Salmeterol [Advair 250-50 Diskus 14 Dose/Diskus] 1 inh IH Q12 Allergies/Adverse Reactions: Sulfa (Sulfonamide Antibiotics) Allergy (Severe, Verified 06/13/17 12:05) unsure pregabalin [From Lyrica] Adverse Reaction (Severe, Verified 06/13/17 12:05) irritable,weight gain Past Medical History Cardiac Medical History: Reports: Coronary Artery Disease, Myocardial Infarction - 2000, Hyperlipidema, Hypertension Denies: Atrial Fibrillation Pulmonary Medical History: Reports: Chronic Obstructive Pulmonary Disease (COPD) , Sleep Apnea Denies: Asthma, Bronchitis, Pneumonia Neurological Medical History: Denies: Seizures Endocrine Medical History: Reports: Hypothyroidism Denies: Diabetes Mellitus Type 1, Diabetes Mellitus Type 2 Renal/ Medical History: Reports: End Stage Renal Disease - Stage IV GI Medical History: Denies: Hepatitis, Hiatal Hernia Musculoskeltal Medical History: Denies: Arthritis Psychiatric Medical History: Denies: Depression Hematology: Reports: Anemia - HX Denies: Sickle Cell Disease Past Surgical History Past Surgical History: Reports: Appendectomy, Cardiac Catheterization, Cholecystectomy, Coronary Stent - August 2014, Tubal Ligation, Vascular Surgery - PermCath placement for dialysis Denies: Amputation, Hysterectomy, Mastectomy, Pacemaker Family History Family History: Reviewed & Not Pertinent, CAD Parental Family History Reviewed: No Children Family History Reviewed: No Sibling(s) Family History Reviewed.: No Social History Smoking Status: Former Smoker Frequency of Alcohol Use: None Hx Recreational Drug Use: No Drugs: None Hx Prescription Drug Abuse: No Physical Exam Vital Signs: Temp Pulse Resp BP Pulse Ox 98.3 F 69 16 145/65 H 94 08/14/17 07:54 08/14/17 07:54 08/14/17 07:54 08/14/17 07:54 08/14/17 07:54 Intake & Output 08/13/17 08/14/17 08/15/17 06:59 06:59 06:59 Weight 82 kg Additional comments: Constitutional: Well-developed well-nourished lady, moderately increased body mass index. No apparent acute distress. Eyes: Mucous membranes pink and moist, pupils equal and reactive to light. Conjunctiva normal. Cornea normal. ENT: Hearing grossly normal. External pinna normal to inspection. Teeth intact. Tongue normal to inspection. Cardiac: Heart sounds normal. Respiratory breath sounds are present bilaterally, normal. Normal respiratory effort. Psychiatric: Judgment, memory, insight seem normal. Mood is pleasant and appropriate. Extremities: Upper extremities show normal range of movement. Pulses present noted to the radial arteries. Capillary refill normal. No cyanosis noted. No muscle wasting noted. Well-established left brachiocephalic fistula. Perhaps slightly softer than usual. Impression/Plan Plan: Plan is for fistula angiogram and possible angioplasty. The goal is improvement of this dialysis access. Procedure, its risks, benefits, expected outcome of the patient. She is agreeable.
--- NOTE | 2017-08-14 11:31 | PDOC DISCHARGE SUMMARY ---
Discharge Summary (SDC) - Discharge Final Diagnosis: #1 AV fistula malfunction, left brachiocephalic. 2. End-stage renal disease on hemodialysis. 3. COPD. 4. Coronary artery disease. 5. Hypertension. Date of Surgery: 08/14/17 Discharge Date: 08/14/17 Condition: Fair Treatment or Instructions: Discharge home [after recovery per ASU criteria]. Diet , [renal],as tolerated, when fully awake advance as tolerated. Activities within moderation encouraged. Follow up in my office by appointment in about 1 month. Call for appointment. Leave wounds [covered], [keep clean and dry, until hemodialysis. Hold of on school/work [until evaluation in office]. Meds per med rec. May shower [in 48 hrs], [try to keep operated area as dry as possible]. Referrals: GIANNA BOURGEOIS MD [Primary Care Provider] -
--- NOTE | 2017-08-14 11:36 | Operative Report ---
Operative Report DATE OF SURGERY: 08/14/17 PREOPERATIVE DIAGNOSIS: #1 AV fistula malfunction, left brachiocephalic. 2. End-stage renal disease on hemodialysis. 3. COPD. 4. Coronary artery disease. 5. Hypertension. POSTOPERATIVE DIAGNOSIS: #1 AV fistula malfunction, left brachiocephalic. Post angioplasty. 2. End-stage renal disease on hemodialysis. 3. COPD. 4. Coronary artery disease. 5. Hypertension. OPERATION: 1. Needle access into arteriovenous fistula, left brachiocephalic. 2. Angioplasty. 3. Angiogram and interpretation. SURGEON: JOSÉ MANUEL SHERMAN AUTOMOTIVE STARTER REPAIRER: None ANESTHESIA: Moderate Sedation TISSUE REMOVED OR ALTERED: Not applicable. COMPLICATIONS: None. ESTIMATED BLOOD LOSS: 2 mL. INTRAOPERATIVE FINDINGS: Of a well founded brachiocephalic fistula left arm, comparatively soft. Adequate otherwise. Angiogram demonstrated a possible stenosis at the arteriovenous anastomosis. Difficult to quantify, no significant significant wasting noted at 5 mm. Improvement in fistula quality by palpation was noted after. Challenging to get into the actual arterial system in a retrograde fashion, tendency of instrumentation to go off into adjacent veins. PROCEDURE: PROCEDURE: After verifying the procedure and having obtained informed consent, the patient's left arm and forearm were prepared with Chlorhexidine and draped out with sterile linen. Local anesthesia infiltrated. Percutaneous access into the fistula ,[retrograde], obtained about [15 cm] from the arteriovenous anastomosis using a micro puncture needle followed by micro puncture wire and then a micro puncture catheter. A 0.035 [place] wire was inserted, and over this, a 6 Moroccan short introducer was placed, this was followed by a Kumpe catheter. Consider manipulation was done using a Kumpe catheter and also a 0.035 Glidewire with a torque device. After sometime the brachial artery was gained. Angiogram demonstrated the brachial artery distal to the fistula. It is of high flow. Angioplasty was now done at the perianastomotic segment. This was done very carefully using a 5 mm Newton balloon 3 mils hand injection sustained for 2 minutes. Completion angiogram demonstrated [satisfactory result]. The instrumentation was now withdrawn over pressure for 10 minutes dressings applied, procedure concluded. DICTATING PHYSICIAN: JOSÉ MANUEL WINSTON M.D. cc: JOSÉ MANUEL WINSTON M.D. ([id number]) >>
[2017-08-14 13:25] VITALS: BP 114/68
--- NOTE | 2017-08-14 16:20 | RADIOLOGY REPORT (SQ) ---
EXAM DESCRIPTION: FISTULAGRAM W/PLASTY COMPLETED DATE/TIME: 08/14/2017 1:19 pm REASON FOR STUDY: T82.858A T82.858A STENOSIS OF OTHER VASCULAR PROSTH DEV/GRFT, INIT COMPARISON: None. FLUOROSCOPY TIME: 3.9 minutes 14 series of digital images saved to PACS. TECHNIQUE: Intra-operative images acquired during surgical procedure to evaluate progress. NUMBER OF IMAGES: 14 series of digital radiographic images LIMITATIONS: None. FINDINGS: Intra procedural imaging and fluoro during left upper extremity dialysis access evaluation and plasty by Dr. Cee. Please see his operative report for further details IMPRESSION: Intra procedural imaging and fluoro COMMENT: Quality ID 145: Final reports for procedures using fluoroscopy that document radiation exp osure indices, or exposure time and number of fluorographic images (if radiation exposure indices are not available) Please consult full operative report of the attending physician for description of the procedure. TECHNICAL DOCUMENTATION: JOB ID: [id number] [employer]- All Rights Reserved
== END 2017-08-14 12:25 | disposition home or self-care (01) ==
LOC: CCL 07:16
PROVIDERS: ATTEND Surgery
PROC: 057F3DZ Dilation of Left Cephalic Vein with Intraluminal Device, Percutaneous Approach (ICD-10-PCS; principal; 2017-08-14)
DX: T82.858A Stenosis of other vascular prosthetic devices, implants and grafts, initial encounter (principal); Y83.2 Surgical operation with anastomosis, bypass or graft as the cause of abnormal reaction of the patient, or of later complication, without mention of misadventure at the time of the procedure; I12.0 Hypertensive chronic kidney disease with stage 5 chronic kidney disease or end stage renal disease; N18.6 End stage renal disease; J44.9 Chronic obstructive pulmonary disease, unspecified; Z99.2 Dependence on renal dialysis; E78.5 Hyperlipidemia, unspecified; E03.9 Hypothyroidism, unspecified; I25.10 Atherosclerotic heart disease of native coronary artery without angina pectoris; Z79.51 Long term (current) use of inhaled steroids; Z79.899 Other long term (current) drug therapy; Z88.2 Allergy status to sulfonamides; Z88.8 Allergy status to other drugs, medicaments and biological substances; I25.2 Old myocardial infarction; Z87.891 Personal history of nicotine dependence
CPT/HCPCS: 36415; 85025; 80048; 36902; C1752; C1725; C1887; Q9967; C1769; J1644 ×2; A9270 ×2; J3490; J2250; J3010

== ENCOUNTER → 2017-09-08 | Outpatient (CLI) | payer MEDICARE, OTHER ==
[2017-09-08 11:41] LABS: CHOLESTEROL 119.81 mg/dL (0-200); TRIGLYCERIDES 86 mg/dL (<150)
[2017-09-08 11:53] LABS: DIRECT LDL 41 mg/dL (<100)
== END ==
LOC: OD 10:39
PROVIDERS: ATTEND Internal Medicine Cardiovascular Disease
DX: E78.00 Pure hypercholesterolemia, unspecified (principal)
CPT/HCPCS: 36415; 80061

== ENCOUNTER → 2017-10-09 | Outpatient (CLI) | payer MEDICARE, OTHER ==
[2017-10-09 15:17] LABS: ABSOLUTE BASOPHILS # (AUTO) 0.1 10^3/uL (0.0-0.2); ABSOLUTE EOSINOPHILS # (AUTO) 0.1 10^3/uL (0.0-0.6); ABSOLUTE LYMPHOCYTES (AUTO) 1.9 10^3/uL (0.5-4.7); ABSOLUTE MONOCYTES (AUTO) 0.6 10^3/uL (0.1-1.4); ABSOLUTE NEUT (AUTO) 3.7 10^3/uL (1.7-8.2); BASOPHILS % (AUTO) 0.9 % (0-2); HEMATOCRIT 42.1 % (36.0-47.0); HEMOGLOBIN 14.3 g/dL (12.0-15.5); LYMPHOCYTES % (AUTO) 29.3 % (13-45); MEAN CORPUSCULAR HEMOGLOBIN 31.8 pg (27.0-33.4); MEAN CORPUSCULAR VOLUME 94 fl (80-97); PLATELET COUNT 291 10^3/uL (150-450); RED BLOOD COUNT 4.49 10^6/uL (3.72-5.28); RED CELL DISTRIBUTION WIDTH 14.1 % (11.5-14.0); SEGMENTED NEUTROPHILS % (AUTO) 57.8 % (42-78); TOTAL CELLS COUNTED % (AUTO) 100 %; WHITE BLOOD COUNT 6.5 10^3/uL (4.0-10.5)
[2017-10-09 15:27] LABS: APPEARANCE,URINE CLEAR; BILIRUBIN,URINE NEGATIVE (NEGATIVE); COLOR,URINE STRAW; GLUCOSE, URINE NEGATIVE (NEGATIVE); KETONES,URINE NEGATIVE (NEGATIVE); LEUKOCYTE ESTERASE,URINE NEGATIVE (NEGATIVE); NITRITE,URINE NEGATIVE (NEGATIVE); PROTEIN,URINE 100 mg/dL (NEGATIVE); URINE SPECIFIC GRAVITY 1.006; UROBILINOGEN,URINE NEGATIVE mg/dL (<2.0)
[2017-10-09 15:40] LABS: ALANINE AMINOTRANSFERASE 28 U/L (9-52); ALBUMIN 3.9 g/dL (3.5-5.0); ALKALINE PHOSPHATASE 85 U/L (38-126); ANION GAP 10 (5-19); ASPARTATE AMINO TRANSFERASE 22 U/L (14-36); BILIRUBIN,DIRECT 0.5 mg/dL (0.0-0.4); BLOOD UREA NITROGEN 21 mg/dL (7-20); CALCIUM 9.4 mg/dL (8.4-10.2); CARBON DIOXIDE 29 mmol/L (22-30); CHLORIDE 103 mmol/L (98-107); GLUCOSE 102 mg/dL (75-110); POTASSIUM 3.7 mmol/L (3.6-5.0); SODIUM 141.5 mmol/L (137-145); TOTAL PROTEIN 6.6 g/dL (6.3-8.2)
--- NOTE | 2017-10-09 16:13 | RADIOLOGY REPORT (SQ) ---
EXAM DESCRIPTION: CT ABD/PELVIS NO ORAL OR IV COMPLETED DATE/TIME: 10/09/2017 3:56 pm REASON FOR STUDY: LOWER ABDOMINAL PAIN R10.30 LOWER ABDOMINAL PAIN, UNSPECIFIED R19.7 DIARRHEA, UN SPECIFIED COMPARISON: February 2015 TECHNIQUE: CT scan of the abdomen and pelvis performed without intravenous or oral contrast. Images reviewed with lung, soft tissue, and bone windows. Reconstructed coronal and sagittal MPR images revi ewed. All images stored on PACS. All CT scanners at this facility use dose modulation, iterative reconstruction, and/or weight based d osing when appropriate to reduce radiation dose to as low as reasonably achievable (ALARA). [facility]: Dose Right [facility]: CareDose [facility]: Dose Right [facility]: Teradose 4D [facility]: Smart Robert Applebaum MD RADIATION DOSE: CT Rad equipment meets quality standard of care and radiation dose reduction techniq ues were employed. CTDIvol: 8.6 mGy. DLP: 423 mGy-cm.mGy. LIMITATIONS: None. FINDINGS: LOWER CHEST: No significant findings. No nodules or infiltrates. NON-CONTRASTED LIVER, SPLEEN, ADRENALS: Evaluation limited by lack of IV contrast. No identified sign ificant masses. PANCREAS: No masses. No peripancreatic inflammatory changes. GALLBLADDER: Status post cholecystectomy RIGHT KIDNEY AND URETER: No suspicious masses. Assessment limited by lack of IV contrast. No signif icant calcifications. No hydronephrosis or hydroureter. Right kidney is atrophic in appearance. LEFT KIDNEY AND URETER: No suspicious masses. Assessment limited by lack of IV contrast. No signifi cant calcifications. No hydronephrosis or hydroureter. Left kidney is atrophic in appearance. AORTA AND RETROPERITONEUM: There is some mild ectasia of the abdominal aorta and iliac vessels with e xtensive vascular calcifications. No retroperitoneal masses or adenopathy. BOWEL AND PERITONEAL CAVITY: No obvious masses or inflammatory changes. No free fluid. Multiple dive rticula are identified in the distal descending colon and sigmoid colon without definite CT evidence for diverticulitis APPENDIX: Normal. PELVIS, BLADDER, AND ABDOMINAL WALL:No abnormal masses. No free fluid. Bladder normal. BONES: No significant findings. OTHER: No other significant finding. IMPRESSION: Multiple diverticula are identified in the distal descending colon and sigmoid colon wit hout definite CT evidence for diverticulitis. Other findings as noted above COMMENT: Quality ID # [id number]: Final reports with documentation of one or more dose reduction techniques (e.g., Automated exposure control, adjustment of the mA and/or kV according to patient size, use of iterative reconstruction technique) TECHNICAL DOCUMENTATION: JOB ID: [id number] [employer]- All Rights Reserved Reading location - IP/workstation name: [email or web address]
--- NOTE | 2017-10-09 16:26 | RADIOLOGY REPORT (SQ) ---
EXAM DESCRIPTION: CHEST 2 VIEWS COMPLETED DATE/TIME: 10/09/2017 4:06 pm REASON FOR STUDY: HYPOXEMIA COMPARISON: March 2016 EXAM PARAMETERS: NUMBER OF VIEWS: two views TECHNIQUE: Digital Frontal and Lateral radiographic views of the chest acquired. RADIATION DOSE: NA LIMITATIONS: none FINDINGS: LUNGS AND PLEURA: There is some minimal blunting of the costophrenic angles which I cannot exclude as tiny bilateral pleural effusions. No acute consolidations are identified. There is a no nspecific prominence of interstitial markings. I cannot exclude a component of obstructive lung dise ase. MEDIASTINUM AND HILAR STRUCTURES: No masses or contour abnormalities. HEART AND VASCULAR STRUCTURES: Heart normal size. No evidence for failure. BONES: No acute findings. HARDWARE: None in the chest. OTHER: No other significant finding. IMPRESSION: There is blunting of the costophrenic angles which I cannot exclude is tiny bilateral pl eural effusions. No acute consolidations are identified. Other findings as noted above TECHNICAL DOCUMENTATION: JOB ID: [id number] [employer]- All Rights Reserved Reading location - IP/workstation name: [email or web address]
== END ==
LOC: RAD 15:36
PROVIDERS: ATTEND Family Medicine
DX: K57.30 Diverticulosis of large intestine without perforation or abscess without bleeding (principal); R10.30 Lower abdominal pain, unspecified; R19.7 Diarrhea, unspecified; R09.02 Hypoxemia
CPT/HCPCS: 36415; 71046; 74176; 80053; 81001; 85025; 87045; 87086; 87205; 87324

== ENCOUNTER 2017-10-22 13:39 | Inpatient (IN) | payer MEDICARE, OTHER ==
[2017-10-22] MEDS ORDERED: ASPIRIN 325 MG TABLET PO ONE (14:05)
--- NOTE | 2017-10-22 14:09 | RADIOLOGY REPORT (SQ) ---
EXAM DESCRIPTION: CT HEAD WITHOUT COMPLETED DATE/TIME: 10/22/2017 1:57 pm REASON FOR STUDY: stroke like symptoms COMPARISON: 06/13/2017. TECHNIQUE: Axial images acquired through the brain without intravenous contrast. Images reviewed wi th bone, brain and subdural windows. Additional sagittal and coronal reconstructions were generated. Images stored on PACS. All CT scanners at this facility use dose modulation, iterative reconstruction, and/or weight based d osing when appropriate to reduce radiation dose to as low as reasonably achievable (ALARA). [facility]: Dose Right [facility]: CareDose [facility]: Dose Right [facility]: Teradose 4D [facility]: Smart [facility] RADIATION DOSE: CT Rad equipment meets quality standard of care and radiation dose reduction techniq ues were employed. CTDIvol: 53.2 mGy. DLP: 964 mGy-cm.mGy. LIMITATIONS: None. FINDINGS: VENTRICLES: Prominent. CEREBRUM: No masses. No hemorrhage. No midline shift. Areas of low density in the white matter mos t likely due to chronic micro-vascular ischemic change. No evidence for acute infarction. CEREBELLUM: No masses. No hemorrhage. No alteration of density. No evidence for acute infarction. EXTRAAXIAL SPACES: Age-related involutional change. No fluid collections. No masses. ORBITS AND GLOBE: No intra- or extraconal masses. Normal contour of globe without masses. CALVARIUM: No fracture. PARANASAL SINUSES: No fluid or mucosal thickening. SOFT TISSUES: No mass or hematoma. OTHER: No other significant finding. IMPRESSION: CHRONIC CHANGES OF ATROPHY AND MICROVASCULAR ISCHEMIA. NO ACUTE PROCESS. EVIDENCE OF ACUTE STROKE: NO. Pertinent positive or negative findings of the imaging study reported as a CRITICAL EXAM to ER DESHAWN TERRI at14:03 on 10/22/2017. Category of Critical Exam: Stroke alert TECHNICAL DOCUMENTATION: JOB ID: [id number] Quality ID # [id number]: Final reports with documentation of one or more dose reduction techniques (e.g., Au tomated exposure control, adjustment of the mA and/or kV according to patient size, use of iterative reconstruction technique) 2010 [employer]- All Rights Reserved Reading location - IP/workstation name: [email or web address]
[2017-10-22 14:16] LABS: INTERNATIONAL RATION (INR) 0.98
[2017-10-22 14:17] LABS: PARTIAL THROMBOPLASTIN TIME 25.7 SEC (23.5-35.8)
[2017-10-22 14:18] LABS: ABSOLUTE EOSINOPHILS # (AUTO) 0.1 10^3/uL (0.0-0.6); ABSOLUTE LYMPHOCYTES (AUTO) 1.4 10^3/uL (0.5-4.7); ABSOLUTE MONOCYTES (AUTO) 0.6 10^3/uL (0.1-1.4); BASOPHILS % (AUTO) 0.2 % (0-2); EOSINOPHILS % (AUTO) 2.4 % (0-6); HEMATOCRIT 39.9 % (36.0-47.0); HEMOGLOBIN 13.9 g/dL (12.0-15.5); LYMPHOCYTES % (AUTO) 23.3 % (13-45); MEAN CORPUSCULAR HEMOGLOBIN 32.1 pg (27.0-33.4); MEAN CORPUSCULAR HGB CONC 34.8 g/dL (32.0-36.0); MEAN CORPUSCULAR VOLUME 92 fl (80-97); MONOCYTES % (AUTO) 9.4 % (3-13); PLATELET COUNT 223 10^3/uL (150-450); RED BLOOD COUNT 4.33 10^6/uL (3.72-5.28); RED CELL DISTRIBUTION WIDTH 13.8 % (11.5-14.0); SEGMENTED NEUTROPHILS % (AUTO) 64.7 % (42-78); TOTAL CELLS COUNTED % (AUTO) 100 %; WHITE BLOOD COUNT 6.1 10^3/uL (4.0-10.5)
[2017-10-22 14:20] LABS: PROTHROMBIN TIME 13.5 SEC (11.4-15.4)
--- NOTE | 2017-10-22 14:33 | ER Document Report ---
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 She received 1 hour of her dialysis course before she was transferred to the ER. Patient's last stroke was 4 months ago and she takes a baby aspirin daily, but no other blood thinners. Patient denies headache, chest pain, shortness of breath, back pain, sensory changes, fevers, urinary symptoms, abdominal pain, blood in stool. TRAVEL OUTSIDE OF THE [place] IN LAST 30 DAYS: No - Related Data Allergies/Adverse Reactions: Sulfa (Sulfonamide Antibiotics) Allergy (Severe, Verified 06/13/17 12:05) unsure pregabalin [From Lyrica] Adverse Reaction (Severe, Verified 06/13/17 12:05) irritable,weight gain Past Medical History - General Information source: Patient - Social History Smoking Status: Never Smoker Chew tobacco use (# tins/day): No Frequency of alcohol use: None Drug Abuse: None Family History: Reviewed & Not Pertinent, CAD Patient has suicidal ideation: No Patient has homicidal ideation: No - Past Medical History Cardiac Medical History: Reports: Hx Coronary Artery Disease, Hx Heart Attack - 2000, Hx Hypercholesterolemia, Hx Hypertension Denies: Hx Atrial Fibrillation Pulmonary Medical History: Reports: Hx COPD, Hx Sleep Apnea Denies: Hx Asthma, Hx Bronchitis, Hx Pneumonia Neurological Medical History: Reports: Hx Cerebrovascular Accident - LEFT SIDE WEAKER THAN RIGHT. Denies: Hx Seizures Endocrine Medical History: Reports: Hx Hypothyroidism. Denies: Hx Diabetes Mellitus Type 1, Hx Diabetes Mellitus Type 2 Renal/ Medical History: Reports: Hx End Stage Renal Disease - Stage IV, on dialysis, Hx Renal Insufficiency - Chronic kidney disease stage III. Denies: Hx Peritoneal Dialysis GI Medical History: Reports: Hx Colonoscopy. Denies: Hx Hepatitis, Hx Hiatal Hernia, Hx Ulcer - DIVERTICULITIS Musculoskeltal Medical History: Denies Hx Arthritis Psychiatric Medical History: Denies: Hx Depression Infectious Medical History: Denies: Hx Hepatitis Past Surgical History: Reports: Hx Appendectomy, Hx Cardiac Catheterization, Hx Cardiac Surgery - STENT, Hx Cholecystectomy, Hx Coronary Stent - August 2014, Hx Tubal Ligation, Hx Vascular Surgery - PermCath placement for dialysis. Denies: Hx Hysterectomy, Hx Mastectomy, Hx Open Heart Surgery, Hx Pacemaker - Immunizations Hx Diphtheria, Pertussis, Tetanus Vaccination: Yes Hx Pneumococcal Vaccination: 07/07/12 Review of Systems - Review of Systems Notes: REVIEW OF SYSTEMS: CONSTITUTIONAL: -fevers, -chills EENT: -eye pain, -difficulty swallowing, -nasal congestion CARDIOVASCULAR: -chest pain, -syncope. RESPIRATORY: -cough, -SOB GASTROINTESTINAL: -abdominal pain, -nausea, -vomiting, -diarrhea GENITOURINARY: -dysuria, -hematuria MUSCULOSKELETAL: -back pain, -neck pain SKIN: -rash or skin lesions. HEMATOLOGIC: -easy bruising or bleeding. LYMPHATIC: -swollen, enlarged glands. NEUROLOGICAL: +left leg weakness, +blurry vision, -altered mental status or loss of consciousness, -headache PSYCHIATRIC: -anxiety, -depression. ALL OTHER SYSTEMS REVIEWED AND NEGATIVE. Physical Exam - Notes Notes: PHYSICAL EXAMINATION: GENERAL: Well-appearing, well-nourished and in no acute distress. HEAD: Atraumatic, normocephalic. EYES: Pupils equal round and reactive to light, extraocular movements intact, sclera anicteric, conjunctiva are normal. ENT: nares patent, oropharynx clear without exudates. Moist mucous membranes. NECK: Normal range of motion, supple without lymphadenopathy LUNGS: Breath sounds clear to auscultation bilaterally and equal. No wheezes rales or rhonchi. HEART: Regular rate and rhythm without murmurs ABDOMEN: Soft, nontender, normoactive bowel sounds. No guarding, no rebound. No masses appreciated. EXTREMITIES: Normal range of motion, no pitting or edema. No cyanosis. NEUROLOGICAL: 3/5 strength in LLE. 5/5 strength in RUE and RLE. 4/5 strength in LUE (chronic from prior CVA). Sensation intact. Mild right-sided facial droop. PSYCH: Normal mood, normal affect. SKIN: Warm, Dry, normal turgor, no rashes or lesions noted. Course - Re-evaluation Re-evalutation: 10/22/17 14:00 Patient with sudden onset of mild left leg weakness, blurry vision and mild right-sided facial droop that started at [address] head does not show any acute bleeds. Extensive discussion with patient, [id number] and about risks and benefits of tPa, including 2 out of 18 patients with improvement in condition at 30 days and 1 out of 18 patients with a life-threatening bleed. Pt has a history of a GI bleed. Answered all questions and they understand. Using shared-decision making, the patient would like to hold off on TPA at this time because of the risks of tPa outweighing any benefits. Her NIH stroke scale is 4 and her ABCD2 score is 6. Pt requires admission for further evaluation and treatment of her acute CVA. 10/22/17 15:[address] Solorio (Hospitalist) and will admit to Inpatient to [facility] for further evaluation and treatment. 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 - Laboratory Result Diagrams: 10/22/17 13:32 10/22/17 13:32 - Diagnostic Test Radiology reviewed: Image reviewed, Reports reviewed Radiology results interpreted by me: CT Head: CHRONIC CHANGES OF ATROPHY AND MICROVASCULAR ISCHEMIA. NO ACUTE PROCESS. EVIDENCE OF ACUTE STROKE: NO. Pertinent positive or negative findings of the imaging study reported as a CRITICAL EXAM to ER PROVIDER at14:03 on 10/22/2017. Category of Critical Exam: Stroke alert CXR: Bibasilar densities as noted above. - EKG Interpretation by Me EKG shows normal: Sinus rhythm, [place], Intervals, QRS Complexes, ST-T Waves Rate: Normal When compared to previous EKG there are: No significant change Critical Care Note - Critical Care Note Total time excluding time spent on procedures (mins): 45 ED [employer]te[employer]/Exc Criteria - Date/Time patient last known well: Date/Time: 10/22/17 13:00 - Date/Time patient arrived in ED: _: 10/22/17 14:00 - Inclusion Criteria: 1: Patient presented to ED within 3 hours of acute ischemic stroke symptom onset ? -: Yes 2: Did baseline CT exclude intracranial hemorrhage and/or other risk factors? -: Yes 3: Is the age of the patient 18 years of age or greater? -: Yes : If any of the above questions are answered "NO" then stop, patient is not a candidate for Alteplase, : If all of the above questions are answered "YES" then continue with Exclusion Criteria. - Exclusion Criteria: 1: Is there evidence of intracranial hemorrhage on baseline CT? -: No 2: Is there suspicion of subarachnoid hemorrhage (even if CT negative)? -: No 3: Is there a history of serious head trauma, recent previous stroke or CO within 3 months? -: No 4: Does the patient have a clinical presentation consistent with CO or post-CO pericarditis? -: No 5: Is there history of intracranial hemorrhage? -: No 6: On repeated measurement is Systolic BP greater than 185mmHg or Diastolic BP greater that 110 mmHg and is aggressive treatment needed to reduce blood pressure to these limits (e.g. constant infusion of an anti-hypertensive)? -: No 7: Did the patient awake with stroke symptoms? -: No 8: Has the patient had a lumbar puncture or an arterial puncture at a non- compressile site within 7 days? -: No 9: With in the last 14 days did the patient have surgery or major trauma? -: No 10: Is the patient or less than 2 weeks? -: No 11: Was there any active bleeding or acute trauma? -: No 12: Does the patient have intracranial neoplasm, arteriovenous malformation or aneurysm? -: No 13: Does the patient have abnormal glucose (less than 50 or greater than 400mg/ dl)? Record glucose in Comment. -: No 14: Patient has rapidly improving symptoms at the time Alteplase is to be Administered. -: No 15: Does the patient have any risks for bleeding, including but not limited to: a.: Current use of Coumadin with PT greater than 15 seconds or INR greater than 1.7. b.: Current use of Pradaxa (Dabigatran). c.: Heparin administereed within the past 48 hours and PTT elevated. d.: Platelet count less than 100,000/mm. e.: Major surgery or serious trauma within 14 days. f.: Gastrointestinal or gynecological urinary bleeding within 14 days. g.: Myocardial Infarction (CO) within 3 months. -: No : If the answer to any of the above questions is "YES" then stop, the patient is not a candidate for Alteplase. : If the answer to all of the above questions is "NO" then the patient may be eligible for the Administration of Alteplase. : If the patient is noted to have seizure activity at onset of Stroke symptoms; Consult Neurologist for further evaluation. - The patient is: -: Included and is eligible to receive Alteplase. *Initiate bed placement at higher level of care* --: Yes Reviewd risks & benefits of thrombolytic therapy: I have reviewed the risks and benefits of thrombolytic therapy with the patient and/or his/her family. Yes -: Excluded and not eligible to receive Alteplase for the above exclusions. -: Excluded and not eligible to receive Alteplase for other reasons (specify in comments): --: Yes - Hx of GI bleed. Risks of tPa outweigh benefits. - Diagnosis of TIA: -: Patient presented with transient symptoms that are now resolved and no other neurologic findings are currently present. List symptoms in comments. -: Patient is NOT a candidate for tPA. -: ____(put name in comment) has been consulted for admission and continued evaluation of risk factor assessment. ED NIH Stroke Scale - NIH Stroke Scale When completed:: Before Alteplase *: 1. NIH scale should be completed with appropriate accompanying assessment tools. *: 2. The NIH should reflect what the patient is capable of doing and should not be coached by the clinician. 1a. Level of Consciousness: 0=Alert;keenly responsive -: 1=Drowsy -: 2=Obtunded -: 3=Coma/unresponsive or reflex to noxious stimuli. 1a. Responses: 0 1b. Orientation Questions: a. What month is it? -: b. How old are you? -: 0=Answers both questions correctly. -: 1=Answers one question correctly or patient is intubated or has orotracheal trauma. -: 2=Answers neither question correctly. 1b. Responses: 0 1c. Response to commands: a. Open and close eyes? -: b. Body Repairer and release hand? -: Credit is given despite weakness. Demonstration of task is permitted. Substitute command if hands cannot be used. -: 0=Performs both tasks correctly -: 1=Performs one task correctly -: 2=Performs neither task correctly 1c. Responses: 0 2. Gaze: Establish eye contact and instruct patient to "Follow my finger" -: 0=Normal -: 1=Partial gaze palsy. Gaze is abnormal in one or both eyes, but where forced deviation or total gaze paresis is not present. -: 2=Forced deviation or total gaze paresis. 2. Responses: 0 3. Visual Tran: Sees fingers in all four quadrants. -: 0=No visual loss. -: 1=Partial hemianopsia. -: 2=Complete hemianopsia. -: 3=Bilateral hemianopsia (including Cortical blindness) 3. Responses: 0 4. Facial Movement: Instruct patient to: -: a. Show me your teeth -: b. Raise your eyebrows -: c. Close your eyes -: d. Smile -: 0=Normal symmetrical movement -: 1=Minor paralysis (flattened nasolabial fold, asymmetry on smiling). -: 2=Partial paralysis (total or near total paralysis of lower face). -: 3=Complete paralysis of upper and lower face 4. Responses: 1 5. Motor functions (left arm): Alternate sides and extend each arm with palms down (90 degrees if sitting or 45 degrees for supine). -: 0=No drift;limb holds for full 10 seconds. -: 1=Drift; limb holds but drifts down before full 10 seconds, but does not hit bed. -: 2=Some effort against gravity; limb cannot get to or maintain position. -: 3=No effort against gravity; limb falls. -: 4=No movement. -: UN=Amputation, joint fusion, explain in comments. 5. Responses (left arm): 0 5. Motor Functions (right arm): Alternate sides and extend each arm with palms down (90 degrees if sitting or 45 degrees for supine). -: 0=No drift;limb holds for full 10 seconds. -: 1=Drift; limb holds but drifts down before full 10 seconds, but does not hit bed. -: 2=Some effort against gravity; limb cannot get to or maintain position. -: 3=No effort against gravity; limb falls. -: 4=No movement. -: UN=Amputation, joint fusion, explain in comments. 5. Responses (right arm): 0 6. Motor Functions (left leg): With patient lying supine, alternate sides and extend each leg (30 degrees always while supine). -: 0=No drift, leg holds position for full 5 seconds -: 1=Drift; leg falls before full 5 seconds but does not hit bed. -: 2=Some effort against gravity, leg falls to bed but some effort against gravity. -: 3=No effort against gravity, leg falls to bed immediately. -: 4=No movement. -: UN=Amputation, joint fusion; explain in comments. 6. Responses (left leg): 3 6. Motor Functions (right leg): With patient lying supine, alternate sides and extend each leg (30 degrees always while supine). -: 0=No drift, leg holds position for full 5 seconds -: 1=Drift; leg falls before full 5 seconds but does not hit bed. -: 2=Some effort against gravity, leg falls to bed but some effort against gravity. -: 3=No effort against gravity, leg falls to bed immediately. -: 4=No movement. -: UN=Amputation, joint fusion; explain in comments. 6. Responses (right leg): 0 7. Limb Ataxia: With eyes open instruct patient to: -: a. "Touch your finger to your nose". -: b. "Touch your heel to your gallardo" -: 0=Absent -: 1=Present in one limb. -: 2=Present in two limbs. -: UN=Amputation or joint fusion; explain in comments. 7. Responses: 0 8. Sensory: Test sensation using pinprick or noxious stimuli. Test as many body parts as possible. -: 0=Normal;no sensory loss -: 1=Mile to moderate sensory loss (patient feels pin prick but is less sharp on affected side). -: 2=Severe or total sensory loss. 8. Responses: 0 9. Best Language: Instruct patient to: -: a. "Describe what you see in this picture." -: b. "Name the items in this picture." -: c. "Read these sentences." -: 0=No aphasia, normal -: 1=Mild to moderate aphasia. -: 2=Severe aphasia -: 3=Mute, global aphasia, no usable speech or auditory comprehension. 9. Responses: 0 10. Articulation, Dysarthia: Instruct patient to: -: "Read these words" or "Repeat these words" -: 0=Normal -: 1=Mild to moderate; patient may slur some words but can be understood without difficulty. -: 2=Severe; patients speech so slurred as to be unintelligible in the absence of dysphasia. -: UN=Intubated or other physical barrier, explain in comments. 10. Responses: 0 11. Extinction or inattention: 0=No abnormality -: 1= Visual, tactile, auditory, spatial, or personal inattention or extinction to bilateral simulation in one or the sensory modalities. -: 2=Profound trena-inattention or trena-inattention to more than one modality; does not recognize own hand. 11. Responses: 0 Total Score: 4 Discharge - Discharge Clinical Impression: Acute CVA (cerebrovascular accident) Condition: Stable Disposition: ADMITTED INPATIENT Admitting Provider: Boboist Negro Unit Admitted: [facility]
[2017-10-22 14:38] LABS: CREATINE KINASE MB 0.37 ng/mL (<4.55)
[2017-10-22 14:40] LABS: TROPONIN I < 0.012 ng/mL
--- NOTE | 2017-10-22 14:41 | RADIOLOGY REPORT (SQ) ---
EXAM DESCRIPTION: CHEST SINGLE VIEW COMPLETED DATE/TIME: 10/22/2017 2:00 pm REASON FOR STUDY: stroke like symptoms COMPARISON: 10/09/2017 EXAM PARAMETERS: NUMBER OF VIEWS: One view. TECHNIQUE: Single frontal radiographic view of the chest acquired. RADIATION DOSE: NA LIMITATIONS: Left lower hemithorax is partially obscured due to overlying monitoring electrodes. FINDINGS: LUNGS AND PLEURA: There is some minimal blunting of the left costophrenic angle which I ca nnot exclude as a tiny left pleural effusion. I cannot exclude some minimal associated atelectasis o r infiltrate in the left lung base. There is some minimal ill-defined increased density in the right lung base which could represent a developing infiltrate or pulmonary edema. Remaining lung lam a re clear MEDIASTINUM AND HILAR STRUCTURES: No masses. Contour normal. HEART AND VASCULAR STRUCTURES: The configuration of the heart mediastinal structures is unchanged. BONES: No acute findings. HARDWARE: None OTHER: No other significant finding. IMPRESSION: Bibasilar densities as noted above TECHNICAL DOCUMENTATION: JOB ID: [id number] [employer]- All Rights Reserved Reading location - IP/workstation name: [email or web address]
[2017-10-22 15:01] LABS: ALANINE AMINOTRANSFERASE 23 U/L (9-52); ALBUMIN 3.9 g/dL (3.5-5.0); ALKALINE PHOSPHATASE 95 U/L (38-126); ANION GAP 11 (5-19); ASPARTATE AMINO TRANSFERASE 21 U/L (14-36); BILIRUBIN,DIRECT 0.3 mg/dL (0.0-0.4); BILIRUBIN,TOTAL 0.9 mg/dL (0.2-1.3); BLOOD UREA NITROGEN 15 mg/dL (7-20); CALCIUM 9.3 mg/dL (8.4-10.2); CARBON DIOXIDE 31 mmol/L (22-30); CHLORIDE 101 mmol/L (98-107); GLUCOSE 95 mg/dL (75-110); POTASSIUM 3.9 mmol/L (3.6-5.0); TOTAL PROTEIN 6.4 g/dL (6.3-8.2)
[2017-10-22] MEDS ORDERED: ASPIRIN 300 MG SUPP, RECTAL PR ONE (15:05)
[2017-10-22] MEDS ORDERED: ACETAMINOPHEN 100 ML IV ONE (15:11)
--- NOTE | 2017-10-22 17:07 | PDOC H&P ---
History of Present Illness Admission Date/PCP: October 22, 2017 PCP: Dr. Aleisha Qureshi Pantograph Engraver: Dr. Neumann. Patient complains of: Right-sided facial droop and left leg weakness. 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 dialysis M-W-F Hypertension Coronary artery disease Prior stroke with residual left-sided weakness COPD Hypothyroidism Gout Hypertension Hyperlipidemia Left arm fistula Basal cell carcinoma left eyelid Outpatient medications: Advair Diskus 250/50 one puff twice a day Aspirin 81 mg daily Atorvastatin 10 mg daily PhosLo 667 mg 3 times a day with meals Lasix 40 mg on Friday and Friday Toprol-XL 50 mg daily Pro-air HFA 90 mcg 2 puffs every Nitroglycerin sublingual tablets 0.4 mg as needed Synthroid 0.88 mg daily Spiriva 18 mcg daily Vitamin D 1000 mg daily Uloric 40 mg daily She was recently admitted to this hospital in June 2017 with worsening left- sided weakness. Her weakness was felt to be due to blood pressure fluctuations and her metoprolol dose was cut down to 25 mg. There was no radiographic evidence of new stroke. The patient presented to the emergency room today with worsening of her left leg weakness and blurred vision 1 hour into her dialysis treatment. There was also reported nausea and right-sided weakness. CT of the head without contrast did not show any acute stroke or hemorrhage. Her history of GI bleeding she was deemed to be not a tPA candidate. She tells me that she drove herself to dialysis this morning and 1 hour into her dialysis she felt like going to the bathroom and realized that she could not move her left leg. She has some residual left-sided weakness from her prior stroke with this was definitely worse. The patient also reports that she had transient right facial droop. No headache no loss of consciousness. She has been a little nauseated for the past couple of hours. No vomiting. No hematuria. Past Medical History Cardiac Medical History: Reports: Coronary Artery Disease, Myocardial Infarction - 2000, Hyperlipidema, Hypertension Denies: Atrial Fibrillation Pulmonary Medical History: Reports: Chronic Obstructive Pulmonary Disease (COPD) , Sleep Apnea Denies: Asthma, Bronchitis, Pneumonia Neurological Medical History: Denies: Seizures Endocrine Medical History: Reports: Hypothyroidism Denies: Diabetes Mellitus Type 1, Diabetes Mellitus Type 2 Renal/ Medical History: Reports: End Stage Renal Disease - Stage IV, on dialysis GI Medical History: Denies: Hepatitis, Hiatal Hernia Musculoskeltal Medical History: Denies: Arthritis Psychiatric Medical History: Denies: Depression Hematology: Reports: Anemia - HX Denies: Sickle Cell Disease Past Surgical History Past Surgical History: Reports: Appendectomy, Cardiac Catheterization, Cholecystectomy, Coronary Stent - August 2014, Tubal Ligation, Vascular Surgery - PermCath placement for dialysis Denies: Amputation, Hysterectomy, Mastectomy, Pacemaker Social History Information Source: Patient Smoking Status: Never Smoker Frequency of Alcohol Use: None Hx Recreational Drug Use: No Drugs: None Hx Prescription Drug Abuse: No - Advance Directive Resuscitation Status: Full Code Family History Family History: CAD, Other Family History: Kidney disease. Parental Family History Reviewed: Yes Children Family History Reviewed: Yes Sibling(s) Family History Reviewed.: Yes Medication/Allergy Home Medications: Albuterol Sulfate [Proair Hfa Inhalation Aerosol 8.5 gm Mdi] 2 puff IH Q6HP PRN 10/22/17 Aspirin [Aspirin 325 mg Tablet] 325 mg PO DAILY 10/22/17 Atorvastatin Calcium [Lipitor 10 mg Tablet] 10 mg PO QHS 10/22/17 Calcium Acetate [Phoslo 667 Mg Capsule] 667 mg PO MEALS 10/22/17 Febuxostat [Uloric 40 mg Tablet] 40 mg PO DAILY 10/22/17 Furosemide [Lasix 20 mg Tablet] 20 mg PO SUTUTHSA@1000 10/22/17 Levothyroxine Sodium [Synthroid] 88 mcg PO DAILY 10/22/17 Metoprolol Succinate [Toprol Xl 50 mg Tab.sr] 50 mg PO DAILY 10/22/17 Nitroglycerin [Nitrostat 0.4 mg (1/150 Gr) Tabs 25/Bottle] 1 tab SL Q5MP PRN Sennosides/Docusate Sodium [Senna-S Tablet] 1 tab PO DAILY 10/22/17 Tiotropium [place] [Spiriva Handihaler 18 mcg/dose (30 Dose)] 1 cap IH DAILY Allergies/Adverse Reactions: Sulfa (Sulfonamide Antibiotics) Allergy (Severe, Verified 06/13/17 12:05) unsure pregabalin [From Lyrica] Adverse Reaction (Severe, Verified 12/08/17 12:05) irritable,weight gain Review of Systems Constitutional: ABSENT: fever(s), headache(s) Eyes: PRESENT: visual disturbances Ears: ABSENT: hearing changes Nose, Mouth, and Throat: ABSENT: sore throat Cardiovascular: ABSENT: orthropnea, palpitations Respiratory: ABSENT: cough, dyspnea Gastrointestinal: PRESENT: diarrhea, nausea. ABSENT: abdominal pain, vomiting Genitourinary: ABSENT: dysuria Musculoskeletal: ABSENT: joint swelling Neurological: PRESENT: focal weakness. ABSENT: syncope Psychiatric: ABSENT: hallucinations Endocrine: ABSENT: heat intolerance Hematologic/Lymphatic: ABSENT: easy bleeding Physical Exam Vital Signs: Temp Pulse Resp BP Pulse Ox 61 18 142/86 H 90 L 10/22/17 14:25 10/22/17 15:01 10/22/17 15:01 10/22/17 15:01 Intake & Output 10/21/17 10/22/17 10/23/17 06:59 06:59 06:59 Weight 62 kg General appearance: PRESENT: no acute distress, well-developed, well-nourished Head exam: PRESENT: normocephalic Eye exam: PRESENT: EOMI, PERRLA. ABSENT: scleral icterus Ear exam: PRESENT: normal external ear exam Mouth exam: PRESENT: moist, neck supple Throat exam: ABSENT: post pharyngeal erythema Neck exam: ABSENT: carotid bruit, tracheal deviation Respiratory exam: PRESENT: clear to auscultation ashanti, symmetrical, unlabored Cardiovascular exam: PRESENT: RRR Pulses: PRESENT: other - L upper arm AV fistula GI/Abdominal exam: PRESENT: normal bowel sounds, soft. ABSENT: tenderness Rectal exam: PRESENT: deferred Neurological exam: PRESENT: alert, awake, oriented to person, oriented to place , oriented to time, oriented to situation Psychiatric exam: PRESENT: appropriate affect, other - Left lower extremity strength 0 out of 5 right lower extremity strength 4+ out of 5 Right upper extremity strength 5 out of 5 left upper extremity strength 4 out of 5 No facial droop Tongue is midline Speech is clear and fluent Results Laboratory Results: 10/22/17 13:32 10/22/17 13:32 10/22/17 10/22/17 13:32 13:32 WBC 6.1 RBC 4.33 Hgb 13.9 Hct 39.9 MCV 92 MCH 32.1 MCHC 34.8 RDW 13.8 Plt Count 223 Seg Neutrophils % 64.7 Lymphocytes % 23.3 Monocytes % 9.4 Eosinophils % 2.4 Basophils % 0.2 Absolute Neutrophils 4.0 Absolute Lymphocytes 1.4 Absolute Monocytes 0.6 Absolute Eosinophils 0.1 Absolute Basophils 0.0 Sodium 143.0 Potassium 3.9 Chloride 101 Carbon Dioxide 31 H Anion Gap 11 BUN 15 Creatinine 1.95 H Est GFR ( Amer) 30 L Est GFR (Non-Af Amer) 25 L Glucose 95 Calcium 9.3 Total Bilirubin 0.9 AST 21 ALT 23 Alkaline Phosphatase 95 Total Protein 6.4 Albumin 3.9 10/22/17 10/22/17 13:32 13:32 Creatine Kinase 32 CK-MB (CK-2) 0.37 Troponin I < 0.012 Impressions: Chest X-Ray 10/22/17 00:00 IMPRESSION: Bibasilar densities as noted above Head CT 10/22/17 00:00 IMPRESSION: CHRONIC CHANGES OF ATROPHY AND MICROVASCULAR ISCHEMIA. NO ACUTE PROCESS. EVIDENCE OF ACUTE STROKE: NO. Pertinent positive or negative findings of the imaging study reported as a CRITICAL EXAM to ER PROVIDER at14:03 on 10/22/2017. Category of Critical Exam: Stroke alert Assessment & Plan - Diagnosis (1) Acute CVA (cerebrovascular accident) Is this a current diagnosis for this admission?: Yes Plan: Neurochecks, switch aspirin to Plavix MRI brain. Fall precautions PT (2) History of stroke with residual deficit Is this a current diagnosis for this admission?: Yes (3) COPD (chronic obstructive pulmonary disease) Is this a current diagnosis for this admission?: Yes Plan: stable, no exacerbation Continue home inhalers (4) End stage renal failure on dialysis Is this a current diagnosis for this admission?: Yes Plan: Consult nephrology. continue PhosLo (5) Full code status Is this a current diagnosis for this admission?: Yes (6) Coronary artery disease Is this a current diagnosis for this admission?: Yes Plan: Continue statin beta-solo (7) Hyperlipidemia Is this a current diagnosis for this admission?: Yes Plan: Statin (8) Hypertension Is this a current diagnosis for this admission?: Yes Plan: Continue metoprolol (9) Hypothyroidism Is this a current diagnosis for this admission?: Yes Plan: Continue Synthroid (10) Gout Is this a current diagnosis for this admission?: Yes Plan: On Urolic (11) DVT prophylaxis Is this a current diagnosis for this admission?: Yes Plan: S/C Lovenox - Time Time Spent: Greater than 70 Minutes
[2017-10-22] MEDS ORDERED: NITROGLYCERIN 0.4 MG/TAB 25 TAB/BOTTLE SL PRN (17:08)
[2017-10-22] MEDS ORDERED: GLUCAGON,HUMAN RECOMB 1 MG INJ SUBCUT PRN (18:55)
[2017-10-22] MEDS ORDERED: DEXTROSE 50%-WATER 25 GM/50 ML DISP.SYRIN IV PRN ×2 (18:55)
[2017-10-22] MEDS ORDERED: DEXTROSE 40% GEL 15 GM TUBE PO PRN ×2 (18:55)
[2017-10-22] MEDS ORDERED: ALBUTEROL SULFATE HFA (90 MCG/PUFF) 200 PUFF/8.5 GM MDI IH PRN (20:01)
[2017-10-22] MEDS ORDERED: ENOXAPARIN SODIUM INJ 30 MG/0.3 ML DISP.SYRIN SUBCUT ONE (21:00)
[2017-10-22] MEDS: FLUTICASONE/SALMETEROL DISKUS 250-50 MCG/DOSE IH SCH (22:04)
[2017-10-22] MEDS: ATORVASTATIN CALCIUM 10 MG TABLET PO SCH (22:06)
[2017-10-22] MEDS: CLOPIDOGREL BISULFATE 75 MG TABLET PO SCH (22:06)
--- NOTE | 2017-10-22 22:17 | RADIOLOGY REPORT (SQ) ---
EXAM DESCRIPTION: MRI HEAD WITHOUT COMPLETED DATE/TIME: 10/22/2017 10:02 pm REASON FOR STUDY: cva COMPARISON: 06/13/2017 TECHNIQUE: Multiplanar imaging includes non-contrasted T1, T2, FLAIR, and diffusion with ADC map seq uences. Images stored on PACS. LIMITATIONS: None. FINDINGS: ANATOMY: No anomalies. Stable vascular flow voids. Pituitary fossa normal. CSF SPACES: Atrophy induced prominence of ventricles and CSF spaces. CEREBRUM: High signal intensity lesions scattered throughout the white matter on FLAIR imaging with d istribution suggesting micro-vascular ischemic changes. No evidence of hemorrhage, mass, or extraaxi al fluid collection. POSTERIOR FOSSA: No signal alteration. No hemorrhage. No edema, masses or mass effect. Internal ann marie tory canals, cerebello-pontine angles, mastoids normal. DIFFUSION IMAGING: Negative for acute or sub-acute infarction. ORBITS: No masses. Globes normal. PARANASAL SINUSES: No fluid levels. Mucosa normal. OTHER: No other significant finding. IMPRESSION: Negative for acute or sub-acute infarction. EVIDENCE OF ACUTE STROKE: NO. TECHNICAL DOCUMENTATION: JOB ID: [id number] 2010 [employer]- All Rights Reserved Reading location - IP/workstation name: [email or web address]
--- NOTE | 2017-10-22 22:22 | EKG REPORT ---
SEVERITY:- NORMAL ECG - SINUS RHYTHM : Confirmed by: Brittni Alonso 22-Oct-2017 22:21:48
[2017-10-23 05:31] LABS: ANION GAP 13 (5-19); BLOOD UREA NITROGEN 17 mg/dL (7-20); CALCIUM 9.1 mg/dL (8.4-10.2); CARBON DIOXIDE 23 mmol/L (22-30); CHLORIDE 109 mmol/L (98-107); GLUCOSE 91 mg/dL (75-110); PHOSPHORUS 2.8 mg/dL (2.5-4.5); POTASSIUM 3.9 mmol/L (3.6-5.0); SODIUM 144.7 mmol/L (137-145)
[2017-10-23] MEDS ORDERED: ASPIRIN 325 MG TABLET PO SCH (10:00)
[2017-10-23] MEDS: ENOXAPARIN SODIUM INJ 30 MG/0.3 ML DISP.SYRIN SUBCUT SCH (11:03)
[2017-10-23] MEDS: METOPROLOL SUCCINATE 50 MG TAB.SR.24H PO SCH (11:04)
[2017-10-23] MEDS: FUROSEMIDE 20 MG TABLET PO SCH (11:04)
[2017-10-23] MEDS: FEBUXOSTAT 40 MG TABLET PO SCH (11:05)
[2017-10-23] MEDS: SENNOSIDES/DOCUSATE 8.6-50 MG 1 EACH TABLET PO SCH (11:05)
[2017-10-23] MEDS: TIOTROPIUM BROMIDE DPI 5 CAP/KIT (18 MCG/CAP) IH SCH (11:07)
[2017-10-23] MEDS: FLUTICASONE/SALMETEROL DISKUS 250-50 MCG/DOSE IH SCH ×2 (11:08→21:51)
[2017-10-23] MEDS: CALCIUM ACETATE 667 MG CAPSULE PO SCH ×3 (11:10→17:43)
[2017-10-23] MEDS: LEVOTHYROXINE SODIUM 0.088 MG TABLET PO SCH (11:10)
--- NOTE | 2017-10-23 14:46 | PDOC PROGRESS REPORT ---
Subjective Progress Note for:: 10/23/17 Subjective:: Left leg weakness persists with no improvement. MRI of the brain did not show any acute infarct. She is a 77-year-old female with end-stage renal disease on dialysis with prior stroke who has chronic left-sided hemiparesis with a left upper and left lower extremity strength of 4 out of 5 at baseline and who uses a cane and drives her own car. On October 22 during dialysis she developed sudden onset left leg weakness which persists. The left lower extremity strength is 0 out of 5 proximally and 3 out of 5 distally. Sensation is slightly reduced compared to the right no DTRs. I discussed the case with Dr. Harden, Neurologist at [facility]. The patient had an MRI of the cervical spine and of the lumbar spine in July of this year and these studies were unremarkable. He recommended an MRI of the thoracic spine and physical therapy. She has an appointment with him on November 13 as an outpatient. He does not feel that she needs to be transferred to to another hospital for the other procedures or studies at this point. Reason For Visit: ACUTE CVA Physical Exam Vital Signs: Temp Pulse Resp BP Pulse Ox 97.2 F 71 17 141/101 H 90 L 10/23/17 12:12 10/23/17 14:32 10/23/17 12:12 10/23/17 12:12 10/23/17 12:12 Intake & Output 10/22/17 10/23/17 10/24/17 06:59 06:59 06:59 Intake Total 5 Balance 5 Weight 80.2 kg 80.2 kg General appearance: PRESENT: no acute distress Head exam: PRESENT: normocephalic Eye exam: PRESENT: PERRLA. ABSENT: scleral icterus Ear exam: PRESENT: normal external ear exam Mouth exam: PRESENT: moist Neck exam: ABSENT: tracheal deviation Respiratory exam: PRESENT: clear to auscultation ashanti, symmetrical, unlabored Cardiovascular exam: PRESENT: RRR GI/Abdominal exam: PRESENT: normal bowel sounds, soft. ABSENT: tenderness Rectal exam: PRESENT: deferred Extremities exam: ABSENT: pedal edema Neurological exam: PRESENT: alert, awake, oriented to person, oriented to place , oriented to time, other - Left leg motor strength 0 out of 5 proximally 3 out of 5 ankle. Psychiatric exam: PRESENT: appropriate affect Skin exam: ABSENT: petechiae Additional comments: Left upper arm AV fistula. Results Laboratory Results: 10/23/17 04:40 10/23/17 04:40 Sodium 144.7 Potassium 3.9 Chloride 109 H Carbon Dioxide 23 Anion Gap 13 BUN 17 Creatinine 2.31 H Est GFR ( Amer) 25 L Est GFR (Non-Af Amer) 21 L Glucose 91 Calcium 9.1 Phosphorus 2.8 Magnesium 2.0 Impressions: Chest X-Ray 10/22/17 00:00 IMPRESSION: Bibasilar densities as noted above Head CT 10/22/17 00:00 IMPRESSION: CHRONIC CHANGES OF ATROPHY AND MICROVASCULAR ISCHEMIA. NO ACUTE PROCESS. EVIDENCE OF ACUTE STROKE: NO. Pertinent positive or negative findings of the imaging study reported as a CRITICAL EXAM to ER PROVIDER at14:03 on 10/22/2017. Category of Critical Exam: Stroke alert Head MRI 10/22/17 00:00 IMPRESSION: Negative for acute or sub-acute infarction. EVIDENCE OF ACUTE STROKE: NO. Assessment & Plan - Diagnosis (1) Acute CVA (cerebrovascular accident) Is this a current diagnosis for this admission?: Yes Plan: Neurochecks, switched aspirin to Plavix MRI brain with no acute changes. MRI thoracic spine ordered. Fall precautions PT (2) History of stroke with residual deficit Is this a current diagnosis for this admission?: Yes (3) COPD (chronic obstructive pulmonary disease) Is this a current diagnosis for this admission?: Yes Plan: stable, no exacerbation Continue home inhalers (4) End stage renal failure on dialysis Is this a current diagnosis for this admission?: Yes Plan: Consult nephrology. continue PhosLo (5) Full code status Is this a current diagnosis for this admission?: Yes (6) Coronary artery disease Is this a current diagnosis for this admission?: Yes Plan: Continue statin beta-solo (7) Hyperlipidemia Is this a current diagnosis for this admission?: Yes Plan: Statin (8) Hypertension Is this a current diagnosis for this admission?: Yes Plan: Continue metoprolol (9) Hypothyroidism Is this a current diagnosis for this admission?: Yes Plan: Continue Synthroid (10) Gout Is this a current diagnosis for this admission?: Yes Plan: On Urolic (11) DVT prophylaxis Is this a current diagnosis for this admission?: Yes Plan: S/C Lovenox - Time Time Spent with patient: 35 or more minutes
--- NOTE | 2017-10-23 17:43 | RADIOLOGY REPORT (SQ) ---
EXAM DESCRIPTION: MRI THORACIC SPINE WITHOUT COMPLETED DATE/TIME: 10/23/2017 5:27 pm REASON FOR STUDY: R leg weakness COMPARISON: None. TECHNIQUE: Sagittal and Axial imaging includes T1, T2, STIR and gradient echo sequences. LIMITATIONS: None. FINDINGS: LOCALIZER: No worrisome findings. ALIGNMENT: Normal. VERTEBRAE: Intact. BONE MARROW: Normal. No marrow replacement or reactive changes. HARDWARE: None in the spine. CORD: Normal in size and signal intensity. SOFT TISSUES: No soft tissue masses. THORACIC DISCS T1-T12: No significant spinal stenosis or exit foraminal stenosis. LOWER CERVICAL: Incompletely imaged. No significant spinal stenosis or exit foraminal stenosis. UPPER LUMBAR: Incompletely imaged. No significant spinal stenosis or exit foraminal stenosis. OTHER: No other significant finding. IMPRESSION: No significant findings. TECHNICAL DOCUMENTATION: JOB ID: [id number] [employer]- All Rights Reserved Reading location - IP/workstation name: [email or web address]
[2017-10-23] MEDS: CLOPIDOGREL BISULFATE 75 MG TABLET PO SCH (21:47)
[2017-10-23] MEDS: ATORVASTATIN CALCIUM 10 MG TABLET PO SCH (21:47)
[2017-10-23 23:53] LABS: APPEARANCE,URINE CLEAR; BILIRUBIN,URINE NEGATIVE (NEGATIVE); COLOR,URINE STRAW; GLUCOSE, URINE NEGATIVE (NEGATIVE); KETONES,URINE NEGATIVE (NEGATIVE); LEUKOCYTE ESTERASE,URINE NEGATIVE (NEGATIVE); NITRITE,URINE NEGATIVE (NEGATIVE); PROTEIN,URINE 100 mg/dL (NEGATIVE); URINE SPECIFIC GRAVITY 1.006; UROBILINOGEN,URINE NEGATIVE mg/dL (<2.0)
[2017-10-24 06:11] LABS: ANION GAP 11 (5-19); BLOOD UREA NITROGEN 20 mg/dL (7-20); CALCIUM 9.2 mg/dL (8.4-10.2); CARBON DIOXIDE 23 mmol/L (22-30); CHLORIDE 109 mmol/L (98-107); GLUCOSE 97 mg/dL (75-110); POTASSIUM 3.5 mmol/L (3.6-5.0); SODIUM 143.1 mmol/L (137-145)
[2017-10-24] MEDS: CALCIUM ACETATE 667 MG CAPSULE PO SCH ×3 (07:48→16:48)
[2017-10-24] MEDS: TIOTROPIUM BROMIDE DPI 5 CAP/KIT (18 MCG/CAP) IH SCH (14:16)
[2017-10-24] MEDS: SENNOSIDES/DOCUSATE 8.6-50 MG 1 EACH TABLET PO SCH (14:16)
[2017-10-24] MEDS: FEBUXOSTAT 40 MG TABLET PO SCH (14:16)
[2017-10-24] MEDS: LEVOTHYROXINE SODIUM 0.088 MG TABLET PO SCH (14:16)
[2017-10-24] MEDS: FLUTICASONE/SALMETEROL DISKUS 250-50 MCG/DOSE IH SCH ×2 (14:16→21:00)
[2017-10-24] MEDS: ENOXAPARIN SODIUM INJ 30 MG/0.3 ML DISP.SYRIN SUBCUT SCH (14:16)
[2017-10-24] MEDS: METOPROLOL SUCCINATE 50 MG TAB.SR.24H PO SCH (14:20)
--- NOTE | 2017-10-24 14:58 | PDOC CONSULTATION ---
Consultation Consult Date: 10/24/17 Attending physician:: SHARON SHEEHAN Consult reason:: I was asked to see this patient to supervise dialysis while here in the hospital. 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 She also has hypertension, coronary artery disease, and previous CVAs with receive a left-sided weakness this most recent episode of CVA in June 2017. After that episode patient was in rehabilitation and physical therapy at home. She was recovering fairly well to the point that she started to drive again by herself. Patient was on dialysis last Friday today when she felt like she wanted to go to the bathroom 1 hour into dialysis. At that time she was noted to have flat affect and she was noted to be weak on her left lower extremity causing her to almost fall down. There was also a note of some blurry vision. So hemodialysis was discontinued and EMS was called. Patient was then brought to the emergency room. Since admission the patient has had CT scan of the head, MRA of the head as well as thoracic spine which all showed chronic findings but no acute findings. Today when I saw the patient on dialysis she still feels like she cannot move her left lower leg. She denies any numbness nor weakness in her right lower leg nor upper extremities. She was started on Plavix. This morning we also did do dialysis on her. When I saw her in dialysis she was comfortable and was tolerating dialysis without any problems. She tells me that she is on soft diet and was tolerating that. She denies any problem with speech. Past Medical History Cardiac Medical History: Reports: Coronary Artery Disease, Hyperlipidemia, Hypertension-primary, Myocardial Infarction - 2000, Other - Subclavian steal syndrome Pulmonary Medical History: Reports: Chronic Obstructive Pulmonary Disease (COPD) , Sleep Apnea Neurological Medical History: Reports: Ischemic CVA, Other - TIA, syncope, vertigo Endocrine Medical History: Reports: Hypothyroidism Renal/ Medical History: Reports: End Stage Renal Disease - Stage IV, on dialysis, Hyperphosphatemia, Metabolic Acidosis, Proteinuria, Secondary Hyperparathyroidism, Other - FSGS for kidney biopsy GI Medical History: Reports: Other - Diverticulitis Past Surgical History Past Surgical History: Reports: Appendectomy, Cardiac Catheterization, Cholecystectomy, Coronary Stent - August 2014, Dialysis Access Surgery AVF, Tubal Ligation, Vascular Surgery - PermCath placement for dialysis Social History Information Source: Patient Smoking Status: Former Smoker Cigarettes Packs Per Day: 1 Number of Years Smokin Last Time Smoked: 2004 Frequency of Alcohol Use: None Hx Recreational Drug Use: No Drugs: None Hx Prescription Drug Abuse: No - Advance Directive Resuscitation Status: Full Code Family History Family History: CVA - Mother, Hypertension - Sister, Other - Kidney stone in her sister and mother Parental Family History Reviewed: Yes Children Family History Reviewed: Yes Sibling(s) Family History Reviewed.: Yes Medication/Allergy Home Medications: Albuterol Sulfate [Proair Hfa Inhalation Aerosol 8.5 gm Mdi] 2 puff IH Q6HP PRN 10/22/17 Aspirin [Aspirin 325 mg Tablet] 325 mg PO DAILY 10/22/17 Atorvastatin Calcium [Lipitor 10 mg Tablet] 10 mg PO QHS 10/22/17 Calcium Acetate [Phoslo 667 Mg Capsule] 667 mg PO MEALS 10/22/17 Febuxostat [Uloric 40 mg Tablet] 40 mg PO DAILY 10/22/17 Furosemide [Lasix 20 mg Tablet] 20 mg PO SUTUTHSA@1000 10/22/17 Levothyroxine Sodium [Synthroid] 88 mcg PO DAILY 10/22/17 Metoprolol Succinate [Toprol Xl 50 mg Tab.sr] 50 mg PO DAILY 10/22/17 Nitroglycerin [Nitrostat 0.4 mg (1/150 Gr) Tabs 25/Bottle] 1 tab SL Q5MP PRN Sennosides/Docusate Sodium [Senna-S Tablet] 1 tab PO DAILY 10/22/17 Tiotropium [place] [Spiriva Handihaler 18 mcg/dose (30 Dose)] 1 cap IH DAILY Allergies/Adverse Reactions: Sulfa (Sulfonamide Antibiotics) Allergy (Severe, Verified 06/13/17 12:05) unsure pregabalin [From Lyrica] Adverse Reaction (Severe, Verified 06/13/17 12:05) irritable,weight gain Review of Systems All systems: reviewed and no additional remarkable complaints except as stated Review of Systems: Constitutional: ABSENT: chills, fatigue, fever(s), headache(s), weight gain, weight loss Eyes: Present: visual disturbances Ears: ABSENT: hearing changes Cardiovascular: ABSENT: chest pain, dyspnea on exertion, edema, orthropnea, palpitations Respiratory: ABSENT: cough, dyspnea, hemoptysis Gastrointestinal: ABSENT: abdominal pain, constipation, diarrhea, hematemesis, hematochezia, nausea, vomiting Genitourinary: ABSENT: dysuria, hematuria Musculoskeletal: ABSENT: joint swelling Integumentary: ABSENT: rash, wounds Neurological: ABSENT: abnormal gait, abnormal speech, confusion, dizziness, numbness, syncope; admits left lower extremity weakness Psychiatric: ABSENT: anxiety, depression Endocrine: ABSENT: cold intolerance, heat intolerance, polydipsia, polyuria Hematologic/Lymphatic: ABSENT: easy bleeding, easy bruising, lymphadenopathy Physical Exam Vital Signs: Temp Pulse Resp BP Pulse Ox 98.7 F 62 18 139/83 H 90 L 10/24/17 07:11 10/24/17 08:00 10/24/17 08:00 10/24/17 08:00 10/24/17 08:00 Intake & Output 10/23/17 10/24/17 10/25/17 06:59 06:59 06:59 Intake Total 5 742 0 Output Total 2 1200 Balance 5 740 -1200 Weight 80.2 kg 82.6 kg Vitals during dialysis: Blood pressure 196/111, heart rate of 78, blood flow rate of 450 mL/min, dialysate flow rate of 800 mL/min. Exam: General appearance: no acute distress, cooperative, well-developed, well- nourished Head exam: PRESENT: atraumatic, normocephalic Eye exam: PRESENT: Conjunctiva [place], EOMI, PERRLA. ABSENT: conjunctival injection, scleral icterus Mouth exam: PRESENT: moist, neck supple, tongue midline Neck exam: PRESENT: full ROM. ABSENT: carotid bruit, JVD, lymphadenopathy, thyromegaly Respiratory exam: PRESENT: clear to auscultation bilaterally. ABSENT: rales, rhonchi, stridor, wheezes Cardiovascular exam: PRESENT: RRR, +S1, +S2. ABSENT: systolic murmur Pulses: PRESENT: normal radial pulses, normal dorsalis pedis pulses GI/Abdominal exam: PRESENT: normal bowel sounds, soft. ABSENT: guarding, mass, tenderness Rectal exam: deferred Extremities exam: PRESENT: full ROM. ABSENT: calf tenderness, pedal edema Musculoskeletal: PRESENT: full ROM. ABSENT: deformity Neurological exam: PRESENT: alert, Awake, Oriented to person, Oriented to place , Oriented to time, reflexes normal, CN II-XII grossly intact. Motor exam showed that her strength in left upper extremity is at least 3+/5 and on the left lower extremity is 0/5. She can barely move her toes in the left foot. ABSENT: Sensory deficit; Psychiatric exam: PRESENT: appropriate affect, normal mood. ABSENT: homicidal ideation, suicidal ideation Skin exam: PRESENT: intact, dry, warm. ABSENT: rash Results Laboratory Results: 10/24/17 05:22 10/23/17 10/24/17 23:26 05:22 Sodium 143.1 Potassium 3.5 L Chloride 109 H Carbon Dioxide 23 Anion Gap 11 BUN 20 Creatinine 2.76 H Est GFR ( Amer) 20 L Est GFR (Non-Af Amer) 17 L Glucose 97 Calcium 9.2 Urine Color STRAW Urine Appearance CLEAR Urine pH 8.0 Ur Specific [place] 1.006 Urine Protein 100 H Urine Glucose (UA) NEGATIVE Urine Ketones NEGATIVE Urine Blood NEGATIVE Urine Nitrite NEGATIVE Ur Leukocyte Esterase NEGATIVE Urine WBC (Auto) 0 Urine RBC (Auto) 3 Impressions: Chest X-Ray 10/22/17 00:00 IMPRESSION: Bibasilar densities as noted above Head CT 10/22/17 00:00 IMPRESSION: CHRONIC CHANGES OF ATROPHY AND MICROVASCULAR ISCHEMIA. NO ACUTE PROCESS. EVIDENCE OF ACUTE STROKE: NO. Pertinent positive or negative findings of the imaging study reported as a CRITICAL EXAM to ER PROVIDER at14:03 on 10/22/2017. Category of Critical Exam: Stroke alert Head MRI 10/22/17 00:00 IMPRESSION: Negative for acute or sub-acute infarction. EVIDENCE OF ACUTE STROKE: NO. Thoracic Spine MRI 10/23/17 00:00 IMPRESSION: No significant findings. Assessment & Plan - Diagnosis (1) Acute CVA (cerebrovascular accident) Is this a current diagnosis for this admission?: Yes Plan: CT scan and MRIs has been negative. Patient currently on Plavix. Defer to hospitalist service. (2) History of stroke with residual deficit Is this a current diagnosis for this admission?: Yes (3) End-stage renal disease on hemodialysis Is this a current diagnosis for this admission?: Yes Plan: We did dialysis today for 3 hours, using the patient's AV fistula, with 3 potassium bath, blood flow rate of 450 mL per minute, dialysate flow rate of 800 mL per minute, ultrafiltration 1-1.5 L as tolerated, no heparin and no Procrit during dialysis. Patient tolerated procedure well. The patient's creatinine has been decreased recently and I would reevaluate her kidney function while here in the hospital. Patient would qualify for a twice a week dialysis rather than 3 times a week. I will plan to do a 24-hour urine for creatinine clearance on Friday while here in the hospital. Plan for next dialysis on Friday though. (4) Hypertension Is this a current diagnosis for this admission?: Yes Plan: Her blood pressure has been labile especially during dialysis treatment. It can go down during dialysis treatment even though it is elevated when she is not on dialysis. Currently it has been acceptable. - Notes Notes: Thank you very much for this consultation and I will follow the patient and supervise dialysis while here in the hospital. - Time Time Spent: 50 to 70 Minutes
--- NOTE | 2017-10-24 17:09 | PDOC PROGRESS REPORT ---
Subjective Progress Note for:: 10/24/17 Subjective:: Seen and examined the patient while she is resting in bed. She just arrived from dialysis. She is awake alert and oriented. Patient has history of stroke with residual left paresis but able to regain her strength is partially and able to get around with the help of cane. This time after having dialysis she started to have pronounced weakness of the left side CTA and MRI of the head are negative.During her current stroke patient completely lost poor on her left lower extremity. Reason For Visit: ACUTE CVA Physical Exam Vital Signs: Temp Pulse Resp BP Pulse Ox 98.0 F 85 17 103/56 L 92 10/24/17 15:38 10/24/17 15:38 10/24/17 15:38 10/24/17 15:38 10/24/17 15:38 Intake & Output 10/23/17 10/24/17 10/25/17 06:59 06:59 06:59 Intake Total 5 742 0 Output Total 2 1200 Balance 5 740 -1200 Weight 80.2 kg 82.6 kg General appearance: PRESENT: mild distress Eye exam: PRESENT: conjunctival injection - Left eye Respiratory exam: PRESENT: clear to auscultation [place]. ABSENT: rales, rhonchi, wheezes Cardiovascular exam: PRESENT: RRR. ABSENT: diastolic murmur, rubs, systolic murmur GI/Abdominal exam: PRESENT: normal bowel sounds, soft. ABSENT: distended, guarding, mass, organolmegaly, rebound, tenderness Neurological exam: PRESENT: alert, awake, oriented to time, other - Left arm power 4 out of 5 and left lower extremity power is 0 out of 5 Results Laboratory Results: 10/24/17 05:22 10/23/17 10/24/17 23:26 05:22 Sodium 143.1 Potassium 3.5 L Chloride 109 H Carbon Dioxide 23 Anion Gap 11 BUN 20 Creatinine 2.76 H Est GFR ( Amer) 20 L Est GFR (Non-Af Amer) 17 L Glucose 97 Calcium 9.2 Urine Color STRAW Urine Appearance CLEAR Urine pH 8.0 Ur Specific [place] 1.006 Urine Protein 100 H Urine Glucose (UA) NEGATIVE Urine Ketones NEGATIVE Urine Blood NEGATIVE Urine Nitrite NEGATIVE Ur Leukocyte Esterase NEGATIVE Urine WBC (Auto) 0 Urine RBC (Auto) 3 Impressions: Chest X-Ray 10/22/17 00:00 IMPRESSION: Bibasilar densities as noted above Head CT 10/22/17 00:00 IMPRESSION: CHRONIC CHANGES OF ATROPHY AND MICROVASCULAR ISCHEMIA. NO ACUTE PROCESS. EVIDENCE OF ACUTE STROKE: NO. Pertinent positive or negative findings of the imaging study reported as a CRITICAL EXAM to ER PROVIDER at14:03 on 10/22/2017. Category of Critical Exam: Stroke alert Head MRI 10/22/17 00:00 IMPRESSION: Negative for acute or sub-acute infarction. EVIDENCE OF ACUTE STROKE: NO. Thoracic Spine MRI 10/23/17 00:00 IMPRESSION: No significant findings. Assessment & Plan - Diagnosis (1) Acute CVA (cerebrovascular accident) Is this a current diagnosis for this admission?: Yes Plan: CT head and MRI of the brain are negative patient has clinical evidence of acute CVA. Patient needs rehab placement. (2) Hypothyroidism Qualifiers: Hypothyroidism type: acquired Qualified Code(s): E03.9 - Hypothyroidism, unspecified Is this a current diagnosis for this admission?: Yes Plan: Continue Synthroid (3) COPD (chronic obstructive pulmonary disease) Qualifiers: Chronic bronchitis type: unspecified Is this a current diagnosis for this admission?: Yes Plan: Continue as needed breathing treatment (4) End stage renal disease Is this a current diagnosis for this admission?: Yes Plan: On hemodialysis (5) Coronary artery disease Qualifiers: Coronary Disease-Associated Artery/Lesion type: [place] artery Is this a current diagnosis for this admission?: Yes Plan: Continue home medication
[2017-10-24] MEDS: ATORVASTATIN CALCIUM 10 MG TABLET PO SCH (21:00)
[2017-10-24] MEDS: CLOPIDOGREL BISULFATE 75 MG TABLET PO SCH (21:00)
[2017-10-25 05:58] LABS: ANION GAP 12 (5-19); BLOOD UREA NITROGEN 16 mg/dL (7-20); CALCIUM 9.4 mg/dL (8.4-10.2); CARBON DIOXIDE 28 mmol/L (22-30); CHLORIDE 100 mmol/L (98-107); GLUCOSE 113 mg/dL (75-110); POTASSIUM 3.6 mmol/L (3.6-5.0); SODIUM 140.2 mmol/L (137-145)
[2017-10-25] MEDS: CALCIUM ACETATE 667 MG CAPSULE PO SCH ×3 (08:15→16:53)
[2017-10-25] MEDS: FEBUXOSTAT 40 MG TABLET PO SCH (09:25)
[2017-10-25] MEDS: TIOTROPIUM BROMIDE DPI 5 CAP/KIT (18 MCG/CAP) IH SCH (09:25)
[2017-10-25] MEDS: FLUTICASONE/SALMETEROL DISKUS 250-50 MCG/DOSE IH SCH ×2 (09:26→22:56)
[2017-10-25] MEDS: SENNOSIDES/DOCUSATE 8.6-50 MG 1 EACH TABLET PO SCH (09:26)
[2017-10-25] MEDS: LEVOTHYROXINE SODIUM 0.088 MG TABLET PO SCH (09:26)
[2017-10-25 09:47] LABS: ABSOLUTE BASOPHILS # (AUTO) 0.1 10^3/uL (0.0-0.2); ABSOLUTE LYMPHOCYTES (AUTO) 0.6 10^3/uL (0.5-4.7); ABSOLUTE MONOCYTES (AUTO) 0.8 10^3/uL (0.1-1.4); ABSOLUTE NEUT (AUTO) 10.4 10^3/uL (1.7-8.2); BASOPHILS % (AUTO) 0.7 % (0-2); EOSINOPHILS % (AUTO) 0.2 % (0-6); HEMATOCRIT 41.5 % (36.0-47.0); LYMPHOCYTES % (AUTO) 5.2 % (13-45); MEAN CORPUSCULAR HEMOGLOBIN 31.4 pg (27.0-33.4); MEAN CORPUSCULAR HGB CONC 33.9 g/dL (32.0-36.0); MEAN CORPUSCULAR VOLUME 93 fl (80-97); MONOCYTES % (AUTO) 7.1 % (3-13); PLATELET COUNT 221 10^3/uL (150-450); RED BLOOD COUNT 4.47 10^6/uL (3.72-5.28); RED CELL DISTRIBUTION WIDTH 13.8 % (11.5-14.0); SEGMENTED NEUTROPHILS % (AUTO) 86.8 % (42-78); TOTAL CELLS COUNTED % (AUTO) 100 %; WHITE BLOOD COUNT 11.9 10^3/uL (4.0-10.5)
--- NOTE | 2017-10-25 10:01 | RADIOLOGY REPORT (SQ) ---
EXAM DESCRIPTION: CHEST SINGLE VIEW COMPLETED DATE/TIME: 10/25/2017 9:19 am REASON FOR STUDY: low grade fever, O2 need COMPARISON: 10/22/2017 EXAM PARAMETERS: NUMBER OF VIEWS: One view. TECHNIQUE: Single frontal radiographic view of the chest acquired. RADIATION DOSE: NA LIMITATIONS: None. FINDINGS: LUNGS AND PLEURA: Stable chronic lung change. Increased left lower lobe airspace disease. Pleural spaces grossly clear. No pneumothorax. MEDIASTINUM AND HILAR STRUCTURES: No masses. Contour normal. HEART AND VASCULAR STRUCTURES: Heart stable in size. Normal vasculature. BONES: No acute findings. HARDWARE: None in the chest. OTHER: No other significant finding. IMPRESSION: INCREASED LEFT LOWER LOBE AIRSPACE DISEASE SUSPICIOUS FOR PNEUMONIA. TECHNICAL DOCUMENTATION: JOB ID: [id number] [employer]- All Rights Reserved Reading location - IP/workstation name: [email or web address]
[2017-10-25] MEDS: ENOXAPARIN SODIUM INJ 30 MG/0.3 ML DISP.SYRIN SUBCUT SCH (10:38)
[2017-10-25] MEDS: METOPROLOL SUCCINATE 50 MG TAB.SR.24H PO SCH (11:11)
[2017-10-25] MEDS: FUROSEMIDE 20 MG TABLET PO SCH (11:11)
[2017-10-25] MEDS ORDERED: METOPROLOL SUCCINATE 50 MG TAB.SR.24H PO SCH (11:17)
--- NOTE | 2017-10-25 12:44 | PDOC PROGRESS REPORT ---
Subjective Progress Note for:: 10/25/17 Subjective:: I seen patient resting in bed comfortably. She is awake alert oriented. She does not have any new complaints this but the nurse in charge of her reported that patient does low-grade fever. I requested a chest x-ray and it is reported as increased left lower lobe airspace disease suspicious for pneumonia. Since clinically patient is stable instead of starting her antibiotics I preferred to closely monitor the patient. For her hypotension and decreased the dose of her blood pressure from 50 mg twice a day to 25 mg twice a day. Reason For Visit: ACUTE CVA Physical Exam Vital Signs: Temp Pulse Resp BP Pulse Ox 99.1 F 79 20 105/68 91 L 10/25/17 07:30 10/25/17 07:30 10/25/17 07:30 10/25/17 07:30 10/25/17 07:30 Intake & Output 10/24/17 10/25/17 10/26/17 06:59 06:59 06:59 Intake Total 742 934 Output Total 2 1200 Balance 740 -266 Weight 82.6 kg 78.5 kg Results Laboratory Results: 10/25/17 05:03 10/25/17 05:03 10/25/17 10/25/17 05:03 05:03 WBC 11.9 H RBC 4.47 Hgb 14.0 Hct 41.5 MCV 93 MCH 31.4 MCHC 33.9 RDW 13.8 Plt Count 221 Seg Neutrophils % 86.8 H Lymphocytes % 5.2 L Monocytes % 7.1 Eosinophils % 0.2 Basophils % 0.7 Absolute Neutrophils 10.4 H Absolute Lymphocytes 0.6 Absolute Monocytes 0.8 Absolute Eosinophils 0.0 Absolute Basophils 0.1 Sodium 140.2 Potassium 3.6 Chloride 100 Carbon Dioxide 28 Anion Gap 12 BUN 16 Creatinine 2.79 H Est GFR ( Amer) 20 L Est GFR (Non-Af Amer) 16 L Glucose 113 H Calcium 9.4 Impressions: Head CT 10/22/17 00:00 IMPRESSION: CHRONIC CHANGES OF ATROPHY AND MICROVASCULAR ISCHEMIA. NO ACUTE PROCESS. EVIDENCE OF ACUTE STROKE: NO. Pertinent positive or negative findings of the imaging study reported as a CRITICAL EXAM to ER PROVIDER at14:03 on 10/22/2017. Category of Critical Exam: Stroke alert Head MRI 10/22/17 00:00 IMPRESSION: Negative for acute or sub-acute infarction. EVIDENCE OF ACUTE STROKE: NO. Thoracic Spine MRI 10/23/17 00:00 IMPRESSION: No significant findings. Chest X-Ray 10/25/17 00:00 IMPRESSION: INCREASED LEFT LOWER LOBE AIRSPACE DISEASE SUSPICIOUS FOR PNEUMONIA. Assessment & Plan - Diagnosis (1) Acute CVA (cerebrovascular accident) Is this a current diagnosis for this admission?: Yes Plan: Patient has been awaiting rehab placement (2) Hypothyroidism Qualifiers: Hypothyroidism type: acquired Qualified Code(s): E03.9 - Hypothyroidism, unspecified Is this a current diagnosis for this admission?: Yes Plan: Continue Synthroid (3) COPD (chronic obstructive pulmonary disease) Qualifiers: Chronic bronchitis type: unspecified Is this a current diagnosis for this admission?: Yes Plan: Continue as needed breathing treatment (4) End stage renal disease Is this a current diagnosis for this admission?: Yes Plan: On hemodialysis (5) Coronary artery disease Qualifiers: Coronary Disease-Associated Artery/Lesion type: [place] artery Is this a current diagnosis for this admission?: Yes Plan: Continue home medication
[2017-10-25] MEDS ORDERED: ACETAMINOPHEN 325 MG TABLET PO PRN (18:50)
[2017-10-25] MEDS: ATORVASTATIN CALCIUM 10 MG TABLET PO SCH (22:56)
[2017-10-25] MEDS: CLOPIDOGREL BISULFATE 75 MG TABLET PO SCH (22:56)
[2017-10-26] MEDS: CALCIUM ACETATE 667 MG CAPSULE PO SCH ×3 (08:10→17:04)
[2017-10-26] MEDS: TIOTROPIUM BROMIDE DPI 5 CAP/KIT (18 MCG/CAP) IH SCH (09:41)
[2017-10-26] MEDS: FLUTICASONE/SALMETEROL DISKUS 250-50 MCG/DOSE IH SCH ×2 (09:41→22:42)
[2017-10-26] MEDS: ENOXAPARIN SODIUM INJ 30 MG/0.3 ML DISP.SYRIN SUBCUT SCH (09:41)
[2017-10-26] MEDS: FEBUXOSTAT 40 MG TABLET PO SCH (09:43)
[2017-10-26] MEDS: LEVOTHYROXINE SODIUM 0.088 MG TABLET PO SCH (09:43)
[2017-10-26] MEDS: SENNOSIDES/DOCUSATE 8.6-50 MG 1 EACH TABLET PO SCH (09:48)
[2017-10-26] MEDS ORDERED: FUROSEMIDE 20 MG TABLET PO SCH (10:00)
[2017-10-26] MEDS ORDERED: METOPROLOL SUCCINATE 25 MG TAB.SR.24H PO SCH (10:00)
[2017-10-26] MEDS: CLOPIDOGREL BISULFATE 75 MG TABLET PO SCH (22:42)
[2017-10-26] MEDS: ATORVASTATIN CALCIUM 10 MG TABLET PO SCH (22:42)
[2017-10-27] MEDS ORDERED: NORMAL SALINE 1000 ML 1,000 ML IV PRN (05:00)
[2017-10-27 05:48] LABS: ABSOLUTE EOSINOPHILS # (AUTO) 0.1 10^3/uL (0.0-0.6); ABSOLUTE LYMPHOCYTES (AUTO) 1.1 10^3/uL (0.5-4.7); ABSOLUTE MONOCYTES (AUTO) 0.7 10^3/uL (0.1-1.4); ABSOLUTE NEUT (AUTO) 2.1 10^3/uL (1.7-8.2); BASOPHILS % (AUTO) 1.2 % (0-2); EOSINOPHILS % (AUTO) 3.6 % (0-6); HEMATOCRIT 37.2 % (36.0-47.0); HEMOGLOBIN 12.9 g/dL (12.0-15.5); LYMPHOCYTES % (AUTO) 26.7 % (13-45); MEAN CORPUSCULAR HEMOGLOBIN 31.7 pg (27.0-33.4); MEAN CORPUSCULAR HGB CONC 34.6 g/dL (32.0-36.0); MEAN CORPUSCULAR VOLUME 92 fl (80-97); MONOCYTES % (AUTO) 16.1 % (3-13); PLATELET COUNT 176 10^3/uL (150-450); RED BLOOD COUNT 4.06 10^6/uL (3.72-5.28); RED CELL DISTRIBUTION WIDTH 13.9 % (11.5-14.0); SEGMENTED NEUTROPHILS % (AUTO) 52.4 % (42-78); TOTAL CELLS COUNTED % (AUTO) 100 %; WHITE BLOOD COUNT 4.1 10^3/uL (4.0-10.5)
[2017-10-27 06:10] LABS: ANION GAP 11 (5-19); BLOOD UREA NITROGEN 33 mg/dL (7-20); CARBON DIOXIDE 27 mmol/L (22-30); CHLORIDE 101 mmol/L (98-107); GLUCOSE 93 mg/dL (75-110); POTASSIUM 4.3 mmol/L (3.6-5.0); SODIUM 139.1 mmol/L (137-145)
[2017-10-27] MEDS: CALCIUM ACETATE 667 MG CAPSULE PO SCH ×3 (08:54→18:07)
[2017-10-27] MEDS: FLUTICASONE/SALMETEROL DISKUS 250-50 MCG/DOSE IH SCH ×2 (11:47→21:18)
[2017-10-27] MEDS: TIOTROPIUM BROMIDE DPI 5 CAP/KIT (18 MCG/CAP) IH SCH (11:47)
[2017-10-27] MEDS: SENNOSIDES/DOCUSATE 8.6-50 MG 1 EACH TABLET PO SCH (11:58)
[2017-10-27] MEDS: FEBUXOSTAT 40 MG TABLET PO SCH (11:58)
[2017-10-27] MEDS: ENOXAPARIN SODIUM INJ 30 MG/0.3 ML DISP.SYRIN SUBCUT SCH (11:58)
[2017-10-27] MEDS: LEVOTHYROXINE SODIUM 0.088 MG TABLET PO SCH (11:58)
[2017-10-27] MEDS: METOPROLOL SUCCINATE 25 MG TAB.SR.24H PO SCH (18:07)
--- NOTE | 2017-10-27 19:52 | PDOC PROGRESS REPORT ---
Subjective Progress Note for:: 10/27/17 Subjective:: I saw the patient during dialysis at around 5:30 PM today. He seems to be clinically stable and has been tolerating dialysis. She still feels weak on that left lower leg and cannot stand on it without assistance. He is awaiting rehab placement currently. Over the weekend she has some hypotension so her Lasix was discontinued and her Toprol dose was decreased. Otherwise she said she has a little bit of a productive cough but denies any fever. Reason For Visit: ACUTE CVA, ESRD Physical Exam Vital Signs: Temp Pulse Resp BP Pulse Ox 97.7 F 85 14 124/68 92 10/27/17 11:52 10/27/17 14:00 10/27/17 11:52 10/27/17 11:52 10/27/17 11:52 Intake & Output 10/26/17 10/27/17 10/28/17 06:59 06:59 06:59 Intake Total 1322 492 232 Output Total 0 Balance 1322 492 232 Weight 80.1 kg 81.6 kg Vitals during dialysis: Blood pressure 114/68, heart rate of 80, blood flow 400 mL/min, dialysate flow rate of 800 mL/min. Exam: General appearance: PRESENT: no acute distress, cooperative, well-developed, well-nourished Head exam: PRESENT: atraumatic, normocephalic Eye exam: PRESENT: conjunctiva pink, PERRLA. ABSENT: scleral icterus Neck exam: ABSENT: JVD Respiratory exam: PRESENT: Normal breath sounds. ABSENT: crackles, rales, rhonchi, unlabored, wheezes Cardiovascular exam: PRESENT: Regular rate rhythm -+S1, +S2. ABSENT: diastolic murmur, systolic murmur GI/Abdominal exam: PRESENT: normal bowel sounds, soft. ABSENT: guarding, mass, tenderness Extremities exam: ABSENT: No edema Neurological exam: PRESENT: alert, awake, oriented to person, place and time. However for upper extremity strength 4/5, left lower extremity strengths 0/5, right upper and lower extremity 5/5. Skin exam: PRESENT: dry, warm, Results Laboratory Results: 10/27/17 05:13 10/27/17 05:13 10/27/17 10/27/17 05:13 05:13 WBC 4.1 RBC 4.06 Hgb 12.9 Hct 37.2 MCV 92 MCH 31.7 MCHC 34.6 RDW 13.9 Plt Count 176 Seg Neutrophils % 52.4 Lymphocytes % 26.7 Monocytes % 16.1 H Eosinophils % 3.6 Basophils % 1.2 Absolute Neutrophils 2.1 Absolute Lymphocytes 1.1 Absolute Monocytes 0.7 Absolute Eosinophils 0.1 Absolute Basophils 0.0 Sodium 139.1 Potassium 4.3 Chloride 101 Carbon Dioxide 27 Anion Gap 11 BUN 33 H Creatinine 3.77 H Est GFR ( Amer) 14 L Est GFR (Non-Af Amer) 12 L Glucose 93 Calcium 9.0 Impressions: Head CT 10/22/17 00:00 IMPRESSION: CHRONIC CHANGES OF ATROPHY AND MICROVASCULAR ISCHEMIA. NO ACUTE PROCESS. EVIDENCE OF ACUTE STROKE: NO. Pertinent positive or negative findings of the imaging study reported as a CRITICAL EXAM to ER PROVIDER at14:03 on 10/22/2017. Category of Critical Exam: Stroke alert Head MRI 10/22/17 00:00 IMPRESSION: Negative for acute or sub-acute infarction. EVIDENCE OF ACUTE STROKE: NO. Thoracic Spine MRI 10/23/17 00:00 IMPRESSION: No significant findings. Chest X-Ray 10/25/17 00:00 IMPRESSION: INCREASED LEFT LOWER LOBE AIRSPACE DISEASE SUSPICIOUS FOR PNEUMONIA. Assessment & Plan - Diagnosis (1) End-stage renal disease on hemodialysis Is this a current diagnosis for this admission?: Yes Plan: We did dialysis today for 3 hours, using the patient's AV fistula, with 2 potassium bath, blood flow rate of 400 mL per minute, dialysate flow rate of 800 mL per minute, ultrafiltration 1 L, No heparin and no Procrit during dialysis. I will observe the patient's kidney function and creatinine rise between dialysis. I will see if she can do with twice a week dialysis treatment instead of 3 times a week. (2) Acute CVA (cerebrovascular accident) Is this a current diagnosis for this admission?: Yes Plan: CT scan and MRIs has been negative. Patient currently on Plavix. Defer to hospitalist service. Patient started in physical therapy and awaiting rehab placement. (3) History of stroke with residual deficit Is this a current diagnosis for this admission?: Yes (4) Hypertension Is this a current diagnosis for this admission?: Yes Plan: Blood pressure has been low for the last 3 days. Agree with decreasing the dose of Toprol. - Time Time with patient: 15-25 minutes
[2017-10-27] MEDS: CLOPIDOGREL BISULFATE 75 MG TABLET PO SCH (21:17)
[2017-10-27] MEDS: ATORVASTATIN CALCIUM 10 MG TABLET PO SCH (21:17)
--- NOTE | 2017-10-27 23:07 | PDOC PROGRESS REPORT ---
Subjective Progress Note for:: 10/27/17 Subjective:: No complaints. Review of systems All organ systems reviewed except as in subjective All laboratories and significant diagnostics had been reviewed Reason For Visit: ACUTE CVA Physical Exam Vital Signs: Temp Pulse Resp BP Pulse Ox 97.2 F 72 20 89/50 L 99 10/27/17 07:10 10/27/17 07:10 10/27/17 07:10 10/27/17 07:10 10/27/17 07:10 Intake & Output 10/26/17 10/27/17 10/28/17 06:59 06:59 06:59 Intake Total 1322 492 Output Total 0 Balance 1322 492 Weight 80.1 kg 81.6 kg General appearance: PRESENT: cooperative, obese Head exam: PRESENT: atraumatic, normocephalic Eye exam: PRESENT: conjunctiva pink, EOMI, PERRLA Neck exam: PRESENT: full ROM. ABSENT: JVD, lymphadenopathy, tenderness Respiratory exam: PRESENT: clear to auscultation ashanti Cardiovascular exam: PRESENT: RRR. ABSENT: diastolic murmur, systolic murmur Vascular exam: PRESENT: normal capillary refill GI/Abdominal exam: PRESENT: normal bowel sounds, soft. ABSENT: tenderness Extremities exam: ABSENT: full ROM, pedal edema Musculoskeletal exam: ABSENT: ambulatory Neurological exam: PRESENT: alert, awake, oriented to person, oriented to place , oriented to time, oriented to situation, other - left lower extremity weakness Psychiatric exam: PRESENT: appropriate affect, normal mood Skin exam: PRESENT: normal color Results Laboratory Results: 10/27/17 05:13 10/27/17 05:13 10/27/17 10/27/17 05:13 05:13 WBC 4.1 RBC 4.06 Hgb 12.9 Hct 37.2 MCV 92 MCH 31.7 MCHC 34.6 RDW 13.9 Plt Count 176 Seg Neutrophils % 52.4 Lymphocytes % 26.7 Monocytes % 16.1 H Eosinophils % 3.6 Basophils % 1.2 Absolute Neutrophils 2.1 Absolute Lymphocytes 1.1 Absolute Monocytes 0.7 Absolute Eosinophils 0.1 Absolute Basophils 0.0 Sodium 139.1 Potassium 4.3 Chloride 101 Carbon Dioxide 27 Anion Gap 11 BUN 33 H Creatinine 3.77 H Est GFR ( Amer) 14 L Est GFR (Non-Af Amer) 12 L Glucose 93 Calcium 9.0 10/23/17 23:26 Clean Catch Midstream Urine Culture - Final NO GROWTH 2 DAYS Impressions: Head CT 10/22/17 00:00 IMPRESSION: CHRONIC CHANGES OF ATROPHY AND MICROVASCULAR ISCHEMIA. NO ACUTE PROCESS. EVIDENCE OF ACUTE STROKE: NO. Pertinent positive or negative findings of the imaging study reported as a CRITICAL EXAM to ER PROVIDER at14:03 on 10/22/2017. Category of Critical Exam: Stroke alert Head MRI 10/22/17 00:00 IMPRESSION: Negative for acute or sub-acute infarction. EVIDENCE OF ACUTE STROKE: NO. Thoracic Spine MRI 10/23/17 00:00 IMPRESSION: No significant findings. Chest X-Ray 10/25/17 00:00 IMPRESSION: INCREASED LEFT LOWER LOBE AIRSPACE DISEASE SUSPICIOUS FOR PNEUMONIA. Assessment & Plan - Diagnosis (1) Facial droop Is this a current diagnosis for this admission?: Yes Plan: Improved (2) End stage renal disease Is this a current diagnosis for this admission?: Yes Plan: As per renal. Lasix discontinued due to hypotension (3) History of stroke with residual deficit Is this a current diagnosis for this admission?: Yes Plan: Supportive and PT (4) Hypothyroidism Qualifiers: Hypothyroidism type: acquired Qualified Code(s): E03.9 - Hypothyroidism, unspecified Is this a current diagnosis for this admission?: Yes Plan: Continue outpatient management (5) Left leg weakness Is this a current diagnosis for this admission?: Yes Plan: MRI of brain negative for acute stroke. To order MRI of lumbar spine - Time Time Spent with patient: Less than 15 minutes Medications reviewed and adjusted accordingly: Yes Anticipated discharge: Hospice Within: when bed available - Inpatient Certification Based on my medical assessment, after consideration of the patient's comorbidities, presenting symptoms, or acuity I expect that the services needed warrant INPATIENT care.: Yes I certify that my determination is in accordance with my understanding of Medicare's requirements for reasonable and necessary INPATIENT services [42 CFR 412.3e].: Yes Medical Necessity: Need Close Monitoring Due to Risk of Patient Decompensation
[2017-10-28] MEDS: CALCIUM ACETATE 667 MG CAPSULE PO SCH ×3 (07:32→18:01)
--- NOTE | 2017-10-28 08:32 | RADIOLOGY REPORT (SQ) ---
EXAM DESCRIPTION: MRI LUMBAR SPINE WITHOUT COMPLETED DATE/TIME: 10/28/2017 8:16 am REASON FOR STUDY: Left leg weakness COMPARISON: MRI lumbar spine 08/02/2017 CT abdomen pelvis 10/09/2017 TECHNIQUE: Sagittal and Axial imaging includes T1, T2, STIR and gradient echo sequences. Coronal T2/ HASTE imaging. LIMITATIONS: None. FINDINGS: VISUALIZED UPPER ABDOMEN: Limited evaluation. No acute or suspicious findings suggested. SEGMENTATION: No transitional anatomy. The lowest well-developed disc space is labeled L5-S1. ALIGNMENT: Anatomic. VERTEBRAE: Intact. BONE MARROW: There are fatty degenerative vertebral body endplate changes at L4-5 DISC SIGNAL: Diffuse decreased T2 weighted intervertebral disc signal throughout the lumbar spine. A symmetric right-sided disc space loss of height at L4-5 and L5-S1 POSTERIOR ELEMENTS: Generally intact. No pars defect evident. HARDWARE: None in the spine. CORD AND CONUS: Normal in size and signal intensity. Conus at the T12-L1 level. SOFT TISSUES: No aortic aneurysm seen. No bulky retroperitoneal adenopathy or mass. No paraspinal mas s or fluid. T11-12: At the upper edge of the field of view. Mild bilateral facet hypertrophy. No central or fo raminal encroachment. T12-L1: Mild bilateral facet hypertrophy. No central or foraminal encroachment. L1-L2: No significant spinal stenosis or exit foraminal stenosis. Mild bilateral facet hypertrophy. L2-L3: No significant spinal stenosis or exit foraminal stenosis. Mild bilateral facet hypertrophy. L3-L4: No significant spinal stenosis or exit foraminal stenosis. Mild bilateral facet hypertrophy. Minimal posterior disc bulging. L4-L5: Mild diffuse posterior disc bulge and bony spurring right greater than left, mild bilateral fa cet hypertrophy. Mild right foraminal narrowing without exiting L4 nerve root impingement. No left foraminal stenosis. L5-S1: Broad diffuse posterior disc bulge and bony spurring is present. Moderate bilateral facet hyp ertrophy. No central stenosis. Mild bilateral foraminal narrowing without exiting L5 nerve root imp ingement. SACRUM: Visualized upper sacrum intact. OTHER: No other significant findings. IMPRESSION: Diffuse mild degenerative changes as above. TECHNICAL DOCUMENTATION: JOB ID: [id number]- All Rights Reserved Reading location - IP/workstation name: [email or web address]
[2017-10-28] MEDS: ENOXAPARIN SODIUM INJ 30 MG/0.3 ML DISP.SYRIN SUBCUT SCH (10:01)
[2017-10-28] MEDS: SENNOSIDES/DOCUSATE 8.6-50 MG 1 EACH TABLET PO SCH (10:02)
[2017-10-28] MEDS: TIOTROPIUM BROMIDE DPI 5 CAP/KIT (18 MCG/CAP) IH SCH (10:07)
[2017-10-28] MEDS: FEBUXOSTAT 40 MG TABLET PO SCH (10:07)
[2017-10-28] MEDS: FLUTICASONE/SALMETEROL DISKUS 250-50 MCG/DOSE IH SCH ×2 (10:08→22:03)
--- NOTE | 2017-10-28 15:04 | RADIOLOGY REPORT (SQ) ---
EXAM DESCRIPTION: CHEST SINGLE VIEW COMPLETED DATE/TIME: 10/28/2017 2:51 pm REASON FOR STUDY: hypoxia COMPARISON: 02/28/2015, 10/09/2017, 10/22/2017, 10/25/2017 EXAM PARAMETERS: NUMBER OF VIEWS: One view. TECHNIQUE: Single frontal radiographic view of the chest acquired. RADIATION DOSE: NA LIMITATIONS: None. FINDINGS: LUNGS AND PLEURA: Minimal airspace disease left lateral costophrenic sulcus, atelectasis v ersus pneumonia. Few Carmen lines at both bases which could indicate mild interstitial edema. No pleural effusions. No pneumothorax. MEDIASTINUM AND HILAR STRUCTURES: No masses. Contour normal. HEART AND VASCULAR STRUCTURES: No cardiomegaly BONES: No acute findings. HARDWARE: None in the chest. OTHER: No other significant finding. IMPRESSION: Increased interstitial markings at both lung bases, question bilateral Carmen lines from mild interstitial edema TECHNICAL DOCUMENTATION: JOB ID: [id number] [employer]- All Rights Reserved Reading location - IP/workstation name: [email or web address]
--- NOTE | 2017-10-28 16:37 | PDOC PROGRESS REPORT ---
Subjective Progress Note for:: 10/28/17 Subjective:: Patient is a stable clinically. She does not have any new complaints. She still cannot move her left leg. Reason For Visit: ACUTE CVA, ESRD Physical Exam Vital Signs: Temp Pulse Resp BP Pulse Ox 97.8 F 93 20 90/44 L 87 L 10/28/17 11:44 10/28/17 14:00 10/28/17 11:44 10/28/17 11:44 10/28/17 12:19 Intake & Output 10/27/17 10/28/17 10/29/17 06:59 06:59 06:59 Intake Total 492 353 220 Output Total 700 Balance 492 -347 220 Weight 81.6 kg 81.6 kg Exam: General appearance: PRESENT: no acute distress, cooperative, well-developed, well-nourished Head exam: PRESENT: atraumatic, normocephalic Eye exam: PRESENT: conjunctiva pink, PERRLA. ABSENT: scleral icterus Neck exam: ABSENT: JVD Respiratory exam: PRESENT: Diminished breath sounds. ABSENT: crackles, rales, rhonchi, unlabored, wheezes Cardiovascular exam: PRESENT: Regular rate rhythm -+S1, +S2. ABSENT: diastolic murmur, systolic murmur GI/Abdominal exam: PRESENT: normal bowel sounds, soft. ABSENT: guarding, mass, tenderness Extremities exam: ABSENT: No edema Neurological exam: PRESENT: alert, awake, oriented to person, place and time. Left leg weakness with strength of 0/5, left upper arm at 4/5 Skin exam: PRESENT: dry, warm, Results Laboratory Results: 10/27/17 05:13 10/27/17 05:13 Impressions: Head CT 10/22/17 00:00 IMPRESSION: CHRONIC CHANGES OF ATROPHY AND MICROVASCULAR ISCHEMIA. NO ACUTE PROCESS. EVIDENCE OF ACUTE STROKE: NO. Pertinent positive or negative findings of the imaging study reported as a CRITICAL EXAM to ER PROVIDER at14:03 on 10/22/2017. Category of Critical Exam: Stroke alert Head MRI 10/22/17 00:00 IMPRESSION: Negative for acute or sub-acute infarction. EVIDENCE OF ACUTE STROKE: NO. Thoracic Spine MRI 10/23/17 00:00 IMPRESSION: No significant findings. Chest X-Ray 10/28/17 00:00 IMPRESSION: Increased interstitial markings at both lung bases, question bilateral Carmen lines from mild interstitial edema Lumbar Spine MRI 10/28/17 00:00 IMPRESSION: Diffuse mild degenerative changes as above. Assessment & Plan - Diagnosis (1) End-stage renal disease on hemodialysis Is this a current diagnosis for this admission?: Yes Plan: Plan for next dialysis tomorrow. I talked the patient that I will give her a trial of just twice a week dialysis on Tuesdays and Saturdays as an outpatient at [facility]. She agreed. However tomorrow prior to discharge we will dialyze her here in the hospital. Followed by next dialysis on Friday at [facility]. She agreed with the plan. (2) Acute CVA (cerebrovascular accident) Is this a current diagnosis for this admission?: Yes (3) History of stroke with residual deficit Is this a current diagnosis for this admission?: Yes (4) Hypertension Is this a current diagnosis for this admission?: Yes Plan: Is still lowish but currently the patient is in the lowest dose of Toprol. - Time Time with patient: 15-25 minutes
--- NOTE | 2017-10-28 16:56 | PDOC PROGRESS REPORT ---
Subjective Progress Note for:: 10/28/17 Subjective:: Complains of needing oxygen because the pulse ox was low Review of systems All organ systems reviewed except as in subjective All laboratories and significant diagnostics had been reviewed Reason For Visit: ACUTE CVA Physical Exam Vital Signs: Temp Pulse Resp BP Pulse Ox 98.4 F 79 16 115/73 90 L 10/28/17 03:26 10/28/17 07:00 10/28/17 03:26 10/28/17 03:26 10/28/17 03:26 Intake & Output 10/27/17 10/28/17 10/29/17 06:59 06:59 06:59 Intake Total 492 353 Output Total 700 Balance 492 -347 Weight 81.6 kg 81.6 kg General appearance: PRESENT: cooperative, obese Head exam: PRESENT: atraumatic, normocephalic Eye exam: PRESENT: conjunctiva pink, EOMI, PERRLA Ear exam: PRESENT: normal external ear exam Mouth exam: PRESENT: moist Neck exam: PRESENT: full ROM. ABSENT: JVD, lymphadenopathy, tenderness Respiratory exam: PRESENT: clear to auscultation ashanti Cardiovascular exam: PRESENT: RRR. ABSENT: diastolic murmur, systolic murmur Vascular exam: PRESENT: normal capillary refill GI/Abdominal exam: PRESENT: normal bowel sounds, soft. ABSENT: tenderness Extremities exam: PRESENT: full ROM. ABSENT: pedal edema Musculoskeletal exam: ABSENT: ambulatory Neurological exam: PRESENT: alert, awake, oriented to person, oriented to place , oriented to time, oriented to situation, CN II-XII grossly intact Psychiatric exam: PRESENT: appropriate affect, normal mood Skin exam: PRESENT: normal color Results Laboratory Results: 10/27/17 05:13 10/27/17 05:13 Impressions: Head CT 10/22/17 00:00 IMPRESSION: CHRONIC CHANGES OF ATROPHY AND MICROVASCULAR ISCHEMIA. NO ACUTE PROCESS. EVIDENCE OF ACUTE STROKE: NO. Pertinent positive or negative findings of the imaging study reported as a CRITICAL EXAM to ER PROVIDER at14:03 on 10/22/2017. Category of Critical Exam: Stroke alert Head MRI 10/22/17 00:00 IMPRESSION: Negative for acute or sub-acute infarction. EVIDENCE OF ACUTE STROKE: NO. Thoracic Spine MRI 10/23/17 00:00 IMPRESSION: No significant findings. Chest X-Ray 10/25/17 00:00 IMPRESSION: INCREASED LEFT LOWER LOBE AIRSPACE DISEASE SUSPICIOUS FOR PNEUMONIA. Assessment & Plan - Diagnosis (1) Facial droop Is this a current diagnosis for this admission?: Yes Plan: Resolved (2) End stage renal disease Is this a current diagnosis for this admission?: Yes Plan: As per renal. Lasix discontinued due to hypotension (3) History of stroke with residual deficit Is this a current diagnosis for this admission?: Yes Plan: Supportive and PT (4) Hypothyroidism Qualifiers: Hypothyroidism type: acquired Qualified Code(s): E03.9 - Hypothyroidism, unspecified Is this a current diagnosis for this admission?: Yes Plan: Continue outpatient management (5) Left leg weakness Is this a current diagnosis for this admission?: Yes Plan: MRI of brain negative for acute stroke. MRI noted and no spinal stenosis. Will need aggressive physical therapy (6) Hypoxemia Is this a current diagnosis for this admission?: Yes Plan: Noted that patient had been requiring oxygen supplementation. Order chest x-ray - Time Time Spent with patient: 15-24 minutes Medications reviewed and adjusted accordingly: Yes Anticipated discharge: Acute Rehab Within: within 24 hours - Inpatient Certification Based on my medical assessment, after consideration of the patient's comorbidities, presenting symptoms, or acuity I expect that the services needed warrant INPATIENT care.: Yes I certify that my determination is in accordance with my understanding of Medicare's requirements for reasonable and necessary INPATIENT services [42 CFR 412.3e].: Yes Medical Necessity: Significant Comorbidiites Make Outpatient Treatment Too Risky , Need Close Monitoring Due to Risk of Patient Decompensation
[2017-10-28] MEDS: MIDODRINE HCL 5 MG TABLET PO SCH (18:01)
[2017-10-28] MEDS: METOPROLOL SUCCINATE 25 MG TAB.SR.24H PO SCH (18:01)
[2017-10-28] MEDS: ATORVASTATIN CALCIUM 10 MG TABLET PO SCH (22:03)
[2017-10-28] MEDS: CLOPIDOGREL BISULFATE 75 MG TABLET PO SCH (22:03)
[2017-10-29] MEDS ORDERED: NORMAL SALINE 1000 ML 1,000 ML IV PRN (05:00)
[2017-10-29] MEDS ORDERED: LEVOTHYROXINE SODIUM 0.088 MG TABLET PO SCH (06:00)
[2017-10-29 06:03] LABS: HEMATOCRIT 37.5 % (36.0-47.0); HEMOGLOBIN 12.9 g/dL (12.0-15.5); MEAN CORPUSCULAR HEMOGLOBIN 31.6 pg (27.0-33.4); MEAN CORPUSCULAR HGB CONC 34.3 g/dL (32.0-36.0); MEAN CORPUSCULAR VOLUME 92 fl (80-97); PLATELET COUNT 226 10^3/uL (150-450); RED BLOOD COUNT 4.08 10^6/uL (3.72-5.28); WHITE BLOOD COUNT 4.8 10^3/uL (4.0-10.5)
[2017-10-29 06:25] LABS: ANION GAP 11 (5-19); BLOOD UREA NITROGEN 32 mg/dL (7-20); CALCIUM 8.7 mg/dL (8.4-10.2); CARBON DIOXIDE 30 mmol/L (22-30); CHLORIDE 100 mmol/L (98-107); GLUCOSE 82 mg/dL (75-110); SODIUM 141.2 mmol/L (137-145)
[2017-10-29] MEDS: FLUTICASONE/SALMETEROL DISKUS 250-50 MCG/DOSE IH SCH (09:44)
[2017-10-29] MEDS: CALCIUM ACETATE 667 MG CAPSULE PO SCH ×3 (09:47→19:10)
[2017-10-29 12:22] VITALS: BP 130/80
[2017-10-29] MEDS: SENNOSIDES/DOCUSATE 8.6-50 MG 1 EACH TABLET PO SCH (13:48)
[2017-10-29] MEDS: TIOTROPIUM BROMIDE DPI 5 CAP/KIT (18 MCG/CAP) IH SCH (13:48)
[2017-10-29] MEDS: ENOXAPARIN SODIUM INJ 30 MG/0.3 ML DISP.SYRIN SUBCUT SCH (13:48)
[2017-10-29] MEDS: FEBUXOSTAT 40 MG TABLET PO SCH (13:48)
[2017-10-29] MEDS: MIDODRINE HCL 5 MG TABLET PO SCH ×3 (13:48→19:10)
--- NOTE | 2017-10-29 14:41 | PDOC TRANSFER SUMMARY ---
General - Admit/Disc Date/PCP Admission Date/Primary Care Provider: 10/22/17 15:38 Discharge Date: 10/29/17 - Discharge Diagnosis (1) Acute CVA (cerebrovascular accident) Is this a current diagnosis for this admission?: Yes (2) End stage renal disease Is this a current diagnosis for this admission?: Yes (3) History of stroke with residual deficit Is this a current diagnosis for this admission?: Yes (4) Hypothyroidism Is this a current diagnosis for this admission?: Yes (5) Left leg weakness Is this a current diagnosis for this admission?: Yes (6) Hypoxemia Is this a current diagnosis for this admission?: Yes (7) COPD (chronic obstructive pulmonary disease) Is this a current diagnosis for this admission?: Yes (8) Gout Is this a current diagnosis for this admission?: Yes (9) HTN (hypertension) Is this a current diagnosis for this admission?: Yes - Additional Information Resuscitation Status: Full Code Discharge Diet: Diabetic, Other (Comments) - Renal Discharge Activity: Activity As Tolerated Home Medications: Albuterol Sulfate [Proair HFA Inhalation Aerosol 8.5 gm MDI] 2 puff IH Q6HP PRN 10/22/17 Atorvastatin Calcium [Lipitor 10 mg Tablet] 10 mg PO QHS 10/22/17 Calcium Acetate [Phoslo 667 mg Capsule] 667 mg PO MEALS 10/22/17 Febuxostat [Uloric 40 mg Tablet] 40 mg PO DAILY 10/22/17 Furosemide [Lasix 20 mg Tablet] 20 mg PO SUTUTHSA@1000 10/22/17 Levothyroxine Sodium [Synthroid] 88 mcg PO DAILY 10/22/17 Metoprolol Succinate [Toprol Xl 50 mg Tab.sr] 50 mg PO DAILY 10/22/17 Nitroglycerin [Nitrostat 0.4 mg (1/150 Gr) Tabs 25/Bottle] 1 tab SL Q5MP PRN Sennosides/Docusate Sodium [Senna-S Tablet] 1 tab PO DAILY 10/22/17 Tiotropium [place] [Spiriva Handihaler 18 mcg/dose (30 Dose)] 1 cap IH DAILY Clopidogrel Bisulfate [Plavix 75 mg Tablet] 75 mg PO QHS tablet 10/29/17 Fluticasone/Salmeterol [Advair 250-50 Diskus 14 Dose/Diskus] 1 inh IH Q12 inhaler 10/29/17 Midodrine HCl [Proamatine 5 mg Tablet] 5 mg PO TID tablet 10/29/17 History of Present Illness Admission Date/PCP: 10/22/17 15:38 History of Present Illness: EZRA SUERO is a 77 year old female with a past medical history ESRD (MWF), hypertension, prior CVAs with mild residual left arm and leg weakness, history of GI bleed, presented to ED with sudden onset of increased left leg weakness blurry vision that started while at dialysis around 1300 while at dialysis. She received 1 hour of her dialysis course before she was transferred to the ED. Patient's last stroke was 4 months ago and she had been taking a baby aspirin daily, but no other blood thinners. Patient denied headache, chest pain , shortness of breath, back pain, sensory changes, fevers, urinary symptoms, abdominal pain, blood in stool. She was admitted under the hospitalist service for further evaluation Hospital Course Hospital Course: Patient was admitted under the hospitalist service. MRI of the brain did not show an acute infarct. Dr. Harden neurologist at [facility] was consulted and recommended to pursue a MRI of the thoracic spine since she had previous MRI of the lumbar and cervical spine which were negative. MRI of the thoracic spine was negative. Patient had been taking aspirin and was placed on Plavix. Is quite feasible that patient had a transient episode of hypotension which cause hypoperfusion in her brain exacerbating the weakness in the left side since she had a recent stroke. Patient is to follow with Dr. Harden on November 13. Patient gets dialysis Friday and Friday. Another area of concern is that she gets intermittent hypoxemia off and had responded to 2 L of O2 by nasal cannula. Likely this relates to problems with COPD. Patient will be transferred to rehab and she had remained stable while hospitalized Physical Exam Vital Signs: Temp Pulse Resp BP Pulse Ox 97.7 F 72 16 130/80 H 96 10/29/17 11:19 10/29/17 11:19 10/29/17 11:19 10/29/17 11:19 10/29/17 11:19 Intake & Output 10/28/17 10/29/17 10/30/17 06:59 06:59 06:59 Intake Total 353 607 Output Total 700 Balance -347 607 Weight 81.6 kg 79.1 kg General appearance: PRESENT: no acute distress, cooperative, obese Head exam: PRESENT: atraumatic, normocephalic Eye exam: PRESENT: conjunctiva pink, EOMI, PERRLA Ear exam: PRESENT: normal external ear exam Neck exam: PRESENT: full ROM. ABSENT: JVD, lymphadenopathy, tenderness Respiratory exam: PRESENT: clear to auscultation ashanti Cardiovascular exam: PRESENT: RRR. ABSENT: diastolic murmur, systolic murmur Vascular exam: PRESENT: normal capillary refill GI/Abdominal exam: PRESENT: normal bowel sounds, soft. ABSENT: tenderness Extremities exam: PRESENT: full ROM, pedal edema Musculoskeletal exam: ABSENT: ambulatory Neurological exam: PRESENT: alert, awake, oriented to person, oriented to place , oriented to time, oriented to situation Psychiatric exam: PRESENT: appropriate affect, normal mood Skin exam: PRESENT: normal color Results Laboratory Results: 10/29/17 05:06 10/29/17 05:06 10/29/17 10/29/17 05:06 05:06 WBC 4.8 RBC 4.08 Hgb 12.9 Hct 37.5 MCV 92 MCH 31.6 MCHC 34.3 RDW 14.0 Plt Count 226 Sodium 141.2 Potassium 4.0 Chloride 100 Carbon Dioxide 30 Anion Gap 11 BUN 32 H Creatinine 3.27 H Est GFR ( Amer) 17 L Est GFR (Non-Af Amer) 14 L Glucose 82 Calcium 8.7 Impressions: Head CT 10/22/17 00:00 IMPRESSION: CHRONIC CHANGES OF ATROPHY AND MICROVASCULAR ISCHEMIA. NO ACUTE PROCESS. EVIDENCE OF ACUTE STROKE: NO. Pertinent positive or negative findings of the imaging study reported as a CRITICAL EXAM to ER PROVIDER at14:03 on 10/22/2017. Category of Critical Exam: Stroke alert Head MRI 10/22/17 00:00 IMPRESSION: Negative for acute or sub-acute infarction. EVIDENCE OF ACUTE STROKE: NO. Thoracic Spine MRI 10/23/17 00:00 IMPRESSION: No significant findings. Chest X-Ray 10/28/17 00:00 IMPRESSION: Increased interstitial markings at both lung bases, question bilateral Carmen lines from mild interstitial edema Lumbar Spine MRI 10/28/17 00:00 IMPRESSION: Diffuse mild degenerative changes as above. Transfer Plan - Disposition Transfer Plan: Transferred to rehab facility. Patient gets dialysis Friday, Friday and Friday - Time Spent with Patient Time spent with patient: Greater than 30 Minutes Qualifiers - * PATIENT BEING DISCHARGED WITH ANY OF THE FOLLOWING DIAGNOSIS: Stroke Stroke Pt being discharged on Anti-thrombolytic therapy?: Yes Stroke Pt being discharged on Anti-coagulation therapy?: Yes Stroke Pt being discharged on Statins?: Yes
--- NOTE | 2017-10-29 17:52 | PDOC PROGRESS REPORT ---
Subjective Progress Note for:: 10/29/17 Subjective:: I am seeing the patient on hemodialysis this afternoon. She had a little bit of infiltration over her AV fistula earlier on dialysis but is currently now with a good flow on her AV fistula and dialysis is going well. Blood pressure is still relatively low so ultrafiltration is limited. Otherwise patient is stable and does not really have much complaints. She is able to slowly move her left leg which is an improvement. She is also scheduled to go to [facility] tonight. Reason For Visit: ACUTE CVA, ESRD Physical Exam Vital Signs: Temp Pulse Resp BP Pulse Ox 97.7 F 74 16 130/80 H 96 10/29/17 11:19 10/29/17 14:00 10/29/17 11:19 10/29/17 11:19 10/29/17 11:19 Intake & Output 10/28/17 10/29/17 10/30/17 06:59 06:59 06:59 Intake Total 353 607 Output Total 700 Balance -347 607 Weight 81.6 kg 79.1 kg Vitals during dialysis: Blood pressure 144/71, heart rate of 76, temperature of 98.3, blood flow rate of 400 mL/min, dialysate flow rate of 800 mL/min. Exam: General appearance: PRESENT: no acute distress, cooperative, well-developed, well-nourished Head exam: PRESENT: atraumatic, normocephalic Eye exam: PRESENT: conjunctiva pink, PERRLA. ABSENT: scleral icterus Neck exam: ABSENT: JVD Respiratory exam: PRESENT: Diminished breath sounds. ABSENT: crackles, rales, rhonchi, unlabored, wheezes Cardiovascular exam: PRESENT: Regular rate rhythm -+S1, +S2. ABSENT: diastolic murmur, systolic murmur GI/Abdominal exam: PRESENT: normal bowel sounds, soft. ABSENT: guarding, mass, tenderness Extremities exam: ABSENT: No edema Neurological exam: PRESENT: alert, awake, oriented to person, place and time. Left upper extremity strength 4/5, left lower extremity strength now at least 1/ 5. Skin exam: PRESENT: dry, warm, Results Laboratory Results: 10/29/17 05:06 10/29/17 05:06 10/29/17 10/29/17 05:06 05:06 WBC 4.8 RBC 4.08 Hgb 12.9 Hct 37.5 MCV 92 MCH 31.6 MCHC 34.3 RDW 14.0 Plt Count 226 Sodium 141.2 Potassium 4.0 Chloride 100 Carbon Dioxide 30 Anion Gap 11 BUN 32 H Creatinine 3.27 H Est GFR ( Amer) 17 L Est GFR (Non-Af Amer) 14 L Glucose 82 Calcium 8.7 Impressions: Head CT 10/22/17 00:00 IMPRESSION: CHRONIC CHANGES OF ATROPHY AND MICROVASCULAR ISCHEMIA. NO ACUTE PROCESS. EVIDENCE OF ACUTE STROKE: NO. Pertinent positive or negative findings of the imaging study reported as a CRITICAL EXAM to ER PROVIDER at14:03 on 10/22/2017. Category of Critical Exam: Stroke alert Head MRI 10/22/17 00:00 IMPRESSION: Negative for acute or sub-acute infarction. EVIDENCE OF ACUTE STROKE: NO. Thoracic Spine MRI 10/23/17 00:00 IMPRESSION: No significant findings. Chest X-Ray 10/28/17 00:00 IMPRESSION: Increased interstitial markings at both lung bases, question bilateral Carmen lines from mild interstitial edema Lumbar Spine MRI 10/28/17 00:00 IMPRESSION: Diffuse mild degenerative changes as above. Assessment & Plan - Diagnosis (1) End-stage renal disease on hemodialysis Is this a current diagnosis for this admission?: Yes Plan: We will do dialysis today for 3 hours, using the patient's AV fistula, with 3 potassium bath, blood flow rate of 400 mL per minute, dialysate flow rate of 800 mL per minute, ultrafiltration at most 1 L, no heparin and no Procrit during dialysiss. We will try the patient on twice a week dialysis of her next dialysis will be at [facility] on Friday at 11:30 AM. Patient is informed and [facility] will confirm appointment with . (2) Acute CVA (cerebrovascular accident) Is this a current diagnosis for this admission?: Yes (3) History of stroke with residual deficit Is this a current diagnosis for this admission?: Yes (4) Hypertension Is this a current diagnosis for this admission?: Yes Plan: Is still lowish but currently the patient is in the lowest dose of Toprol. - Notes Notes: I will follow the patient at [facility] next week during dialysis on Friday. - Time Time with patient: 15-25 minutes
[2017-10-29] MEDS: METOPROLOL SUCCINATE 25 MG TAB.SR.24H PO SCH (19:10)
== END 2017-10-29 19:47 | DRG 64 ==
LOC: ER 13:39 → EH 15:38 → 3W 19:17
PROVIDERS: ADMIT Internal Medicine; ATTEND Internal Medicine
PROC: 5A1D70Z Performance of Urinary Filtration, Intermittent, Less than 6 Hours Per Day (ICD-10-PCS; principal; 2017-10-24)
PROC: 5A1D70Z Performance of Urinary Filtration, Intermittent, Less than 6 Hours Per Day (ICD-10-PCS; 2017-10-27)
PROC: 5A1D70Z Performance of Urinary Filtration, Intermittent, Less than 6 Hours Per Day (ICD-10-PCS; 2017-10-29)
DX: I63.9 Cerebral infarction, unspecified (principal); N18.6 End stage renal disease; G81.94 Hemiplegia, unspecified affecting left nondominant side; I12.0 Hypertensive chronic kidney disease with stage 5 chronic kidney disease or end stage renal disease; H53.8 Other visual disturbances; R29.810 Facial weakness; R29.704 NIHSS score 4; J44.9 Chronic obstructive pulmonary disease, unspecified; I25.10 Atherosclerotic heart disease of native coronary artery without angina pectoris; E03.9 Hypothyroidism, unspecified; R09.02 Hypoxemia; C44.119 Basal cell carcinoma of skin of left eyelid, including canthus; E78.5 Hyperlipidemia, unspecified; M10.9 Gout, unspecified; I25.2 Old myocardial infarction; Z99.2 Dependence on renal dialysis; Z79.82 Long term (current) use of aspirin; Z79.51 Long term (current) use of inhaled steroids; Z79.899 Other long term (current) drug therapy
CPT/HCPCS: 36415; 70450; 70551; 71045; 72146; 72148; 80048; 80053; 81001; 82550; 82553; 82962; 83605; 83735; 84100; 84484; 85025; 85027; 85610; 85730; 87040; 87086; 93005; 93010; 94799; 96365; 99291; G8978-GP; G8979-GP; G8987-GO; G8988-GO; G8996-GN; G8997-GN; J0131; J1650; J3490

== ENCOUNTER → 2017-12-15 | Outpatient (CLI) | payer MEDICARE, OTHER ==
[2017-12-15 13:24] LABS: ALANINE AMINOTRANSFERASE 22 U/L (9-52); ALBUMIN 3.6 g/dL (3.5-5.0); ALKALINE PHOSPHATASE 61 U/L (38-126); ANION GAP 10 (5-19); ASPARTATE AMINO TRANSFERASE 19 U/L (14-36); BILIRUBIN,DIRECT 0.4 mg/dL (0.0-0.4); BILIRUBIN,TOTAL 0.6 mg/dL (0.2-1.3); BLOOD UREA NITROGEN 32 mg/dL (7-20); CALCIUM 9.5 mg/dL (8.4-10.2); CARBON DIOXIDE 28 mmol/L (22-30); CHLORIDE 105 mmol/L (98-107); GLUCOSE 81 mg/dL (75-110); POTASSIUM 4.5 mmol/L (3.6-5.0); SODIUM 143.3 mmol/L (137-145); TOTAL PROTEIN 6.2 g/dL (6.3-8.2); URIC ACID 1.3 mg/dL (2.5-7.5)
[2017-12-15 13:35] LABS: FREE T3 2.61 pg/mL (2.77-5.27); FREE T4 (FREE THYROXINE) 1.69 ng/dL (0.78-2.19)
[2017-12-15 13:49] LABS: THYROID STIMULATING HORMONE 8.61 uIU/mL (0.47-4.68)
== END ==
LOC: OD 11:26
PROVIDERS: ATTEND Family Medicine
DX: E03.9 Hypothyroidism, unspecified (principal); M10.372 Gout due to renal impairment, left ankle and foot; Z79.899 Other long term (current) drug therapy
CPT/HCPCS: 36415; 80048; 80076; 84439; 84443; 84481; 84550

== ENCOUNTER 2017-12-25 14:20 | Emergency (ER) | payer MEDICARE, OTHER ==
[2017-12-25 15:02] LABS: ABSOLUTE BASOPHILS # (AUTO) 0.1 10^3/uL (0.0-0.2); ABSOLUTE EOSINOPHILS # (AUTO) 0.2 10^3/uL (0.0-0.6); ABSOLUTE LYMPHOCYTES (AUTO) 1.9 10^3/uL (0.5-4.7); ABSOLUTE MONOCYTES (AUTO) 0.7 10^3/uL (0.1-1.4); ABSOLUTE NEUT (AUTO) 4.2 10^3/uL (1.7-8.2); EOSINOPHILS % (AUTO) 2.5 % (0-6); HEMATOCRIT 33.2 % (36.0-47.0); HEMOGLOBIN 11.7 g/dL (12.0-15.5); LYMPHOCYTES % (AUTO) 27.3 % (13-45); MEAN CORPUSCULAR HEMOGLOBIN 32.5 pg (27.0-33.4); MEAN CORPUSCULAR HGB CONC 35.3 g/dL (32.0-36.0); MEAN CORPUSCULAR VOLUME 92 fl (80-97); MONOCYTES % (AUTO) 9.8 % (3-13); PLATELET COUNT 306 10^3/uL (150-450); RED BLOOD COUNT 3.61 10^6/uL (3.72-5.28); RED CELL DISTRIBUTION WIDTH 13.9 % (11.5-14.0); SEGMENTED NEUTROPHILS % (AUTO) 59.4 % (42-78); TOTAL CELLS COUNTED % (AUTO) 100 %
[2017-12-25 15:09] LABS: ALANINE AMINOTRANSFERASE 21 U/L (9-52); ALBUMIN 3.8 g/dL (3.5-5.0); ALKALINE PHOSPHATASE 65 U/L (38-126); ANION GAP 11 (5-19); ASPARTATE AMINO TRANSFERASE 19 U/L (14-36); BILIRUBIN,DIRECT 0.3 mg/dL (0.0-0.4); BILIRUBIN,TOTAL 0.7 mg/dL (0.2-1.3); BLOOD UREA NITROGEN 35 mg/dL (7-20); CALCIUM 10.3 mg/dL (8.4-10.2); CARBON DIOXIDE 30 mmol/L (22-30); CHLORIDE 100 mmol/L (98-107); CREATINE KINASE 31 U/L (30-135); GLUCOSE 91 mg/dL (75-110); POTASSIUM 3.9 mmol/L (3.6-5.0); SODIUM 141.2 mmol/L (137-145); TOTAL PROTEIN 6.5 g/dL (6.3-8.2)
[2017-12-25 15:20] LABS: CREATINE KINASE MB 0.41 ng/mL (<4.55); TROPONIN I < 0.012 ng/mL
[2017-12-25 16:16] LABS: APPEARANCE,URINE CLEAR; BILIRUBIN,URINE NEGATIVE (NEGATIVE); COLOR,URINE YELLOW; GLUCOSE, URINE NEGATIVE (NEGATIVE); KETONES,URINE NEGATIVE (NEGATIVE); LEUKOCYTE ESTERASE,URINE NEGATIVE (NEGATIVE); NITRITE,URINE NEGATIVE (NEGATIVE); PROTEIN,URINE 30 mg/dL (NEGATIVE); URINE SPECIFIC GRAVITY 1.005; UROBILINOGEN,URINE NEGATIVE mg/dL (<2.0)
--- NOTE | 2017-12-25 17:28 | ER Document Report ---
ED General - General Chief Complaint: Dizziness Stated Complaint: POSSIBLE HYPOTENSION Time Seen by Provider: 12/25/17 17:25 Mode of Arrival: Medic Information source: Patient, Relative Notes: Patient brings with her a list of blood pressures taken at home. Significant hypotension all day yesterday. She omitted her evening dose of metoprolol yesterday. Also, she took 3 doses of Midodrine yesterday. Today she went for follow-up with her primary care provider, who is blood pressure measurements were low and she was sent to the emergency department for further evaluation. TRAVEL OUTSIDE OF THE [place] IN LAST 30 DAYS: No - HPI Patient complains to provider of: LOW BLOOD PRESSURE, WEAKNESS Onset: Yesterday Onset/Duration: Sudden, Persistent, Better - SINCE ARRIVAL TO .. Quality of pain: No pain Severity: Moderate Associated symptoms: Shortness of breath - CONSTANT, ROUTINE, Weakness - GENERALIZED, REQUIRES ASSISTANCE FOR STANDING OR TRANSFERS.. denies: Diarrhea, Leg swelling, Nausea, Vomiting Exacerbated by: Other - ANY ACTIVITY Similar symptoms previously: Yes Recently seen / treated by doctor: Yes - PCP, TODAY - Related Data Allergies/Adverse Reactions: Sulfa (Sulfonamide Antibiotics) Allergy (Severe, Verified 06/13/17 12:05) unsure pregabalin [From Lyrica] Adverse Reaction (Severe, Verified 06/13/17 12:05) irritable,weight gain Past Medical History - General Information source: Patient, Relative - Social History Smoking Status: Never Smoker Chew tobacco use (# tins/day): No Frequency of alcohol use: None Drug Abuse: None Lives with: Family Family History: CAD, Other Patient has suicidal ideation: No Patient has homicidal ideation: No - Past Medical History Cardiac Medical History: Reports: Hx Coronary Artery Disease, Hx Heart Attack - 2000, Hx Hypercholesterolemia, Hx Hypertension Denies: Hx Atrial Fibrillation Pulmonary Medical History: Reports: Hx COPD, Hx Sleep Apnea Denies: Hx Asthma, Hx Bronchitis, Hx Pneumonia Neurological Medical History: Reports: Hx Cerebrovascular Accident - LEFT SIDE WEAKER THAN RIGHT. Denies: Hx Seizures Endocrine Medical History: Reports: Hx Hypothyroidism. Denies: Hx Diabetes Mellitus Type 1, Hx Diabetes Mellitus Type 2 Renal/ Medical History: Reports: Hx End Stage Renal Disease, Hx Hemodialysis, Hx Renal Insufficiency - Chronic kidney disease stage III. Denies: Hx Peritoneal Dialysis Malignancy Medical History: Reports: None GI Medical History: Reports: Hx Colonoscopy. Denies: Hx Hepatitis, Hx Hiatal Hernia. Comment Only: Hx Ulcer - DIVERTICULITIS Musculoskeltal Medical History: Denies Hx Arthritis Psychiatric Medical History: Reports: None Denies: Hx Depression Infectious Medical History: Denies: Hx Hepatitis Past Surgical History: Reports: Hx Appendectomy, Hx Cardiac Catheterization, Hx Cardiac Surgery - STENT, Hx Cholecystectomy, Hx Coronary Stent - August 2014, Hx Tubal Ligation, Hx Vascular Surgery - PermCath placement for dialysis. Denies: Hx Hysterectomy, Hx Mastectomy, Hx Open Heart Surgery, Hx Pacemaker - Immunizations Hx Diphtheria, Pertussis, Tetanus Vaccination: Yes Hx Pneumococcal Vaccination: 07/07/12 Review of Systems - Review of Systems Constitutional: See HPI EENT: No symptoms reported Cardiovascular: See HPI Respiratory: See HPI Gastrointestinal: No symptoms reported Genitourinary: No symptoms reported Female Genitourinary: Post menopausal Musculoskeletal: No symptoms reported Skin: No symptoms reported Neurological/Psychological: See HPI Physical Exam - Vital signs Vitals: Temp 97.8 F 12/25/17 14:20 Interpretation: Hypotensive - INITIALLY 98/46, 2 HRS LATER 120/70, NO TREATMENT. No: Tachycardic, Hypoxic, Tachypneic, Febrile - General General appearance: Appears well, Alert In distress: None - HEENT Head: Normocephalic Eyes: Normal Conjunctiva: Normal Ears: Normal Nasal: Normal Mouth/Lips: Normal Mucous membranes: Normal - Respiratory Respiratory status: No respiratory distress Breath sounds: Normal - Cardiovascular Rhythm: Regular Heart sounds: Normal auscultation Murmur: No - Abdominal Inspection: Normal Distension: No distension Bowel sounds: Normal - Back Back: Normal - Extremities General upper extremity: Normal inspection General lower extremity: Normal inspection. No: Tender, Edema - Neurological Neuro grossly intact: Yes Cognition: Normal Orientation: AAOx4 - Psychological Associated symptoms: Normal affect, Normal mood - Skin Skin Temperature: Warm Skin Moisture: Dry Skin Color: Normal Skin Turgor: Elastic Course - Vital Signs Vital signs: Temp Pulse Resp BP Pulse Ox 97.8 F 70 15 130/68 H 94 12/25/17 14:20 12/25/17 22:10 12/25/17 19:02 12/25/17 22:10 12/25/17 19:02 - Laboratory Result Diagrams: 12/25/17 14:40 12/25/17 14:40 Laboratory results interpreted by me: 12/25/17 12/25/17 12/25/17 14:40 14:40 15:55 RBC 3.61 L Hgb 11.7 L Hct 33.2 L BUN 35 H Creatinine 4.03 H Est GFR ( Amer) 13 L Est GFR (Non-Af Amer) 11 L Calcium 10.3 H Urine Protein 30 H - Consults DR. PATRICK Time consulted: 21:16 Reason for consultation: 12/25/17 21:35 CASE DISCUSSED W/ DR. PATRICK, SHE SUGGESTS IV FLUID BOLUS 200 cc AND REPEAT ORTHOSTATIC V.S. REPEAT x 1 IF NECESSARY. Discharge - Discharge Clinical Impression: Orthostatic hypotension, End stage renal failure on dialysis Condition: Stable Disposition: HOME, SELF-CARE Instructions: Orthostatic Hypotension ([facility]) Additional Instructions: DO NOT TAKE YOUR METOPROLOL TONIGHT. OTHERWISE, CONTINUE USUAL MEDS. FOLLOW UP WITH YOUR MAT INSPECTOR AND WITH DIALYSIS CLINIC TOMORROW SCHEDULED. BE CAREFUL WHEN YOU ATTEMPT TO STAND OR WALK, CALL FOR ASSISTANCE IF NEEDED. RETURN TO E.R. PROMPTLY IF ANY NEW PROBLEMS. Referrals: GENTRY PATRICK MD [ACTIVE STAFF] - Follow up as needed
--- NOTE | 2017-12-25 20:06 | RADIOLOGY REPORT (SQ) ---
EXAM DESCRIPTION: MRI HEAD WITHOUT COMPLETED DATE/TIME: 12/25/2017 7:49 pm REASON FOR STUDY: INCREASED WEAKNESS, DYSEQUILIBRIUM, H/O PRIOR CVA COMPARISON: 10/22/2017 TECHNIQUE: Multiplanar imaging includes non-contrasted T1, T2, FLAIR, and diffusion with ADC map seq uences. Images stored on PACS. LIMITATIONS: None. FINDINGS: ANATOMY: No anomalies. Normal vascular flow voids. Pituitary fossa normal. CSF SPACES: Normal in size and contour. No hemorrhage. CEREBRUM: Sulci and gyri normal in size and contour. Extensive increased white matter signal on FLAI R and T2 images. No evidence of hemorrhage, mass, or extraaxial fluid collection. POSTERIOR FOSSA: No signal alteration. No hemorrhage. No edema, masses or mass effect. Internal ann marie tory canals, cerebello-pontine angles, mastoids normal. DIFFUSION IMAGING: Negative for acute or sub-acute infarction. ORBITS: No masses. Globes normal. PARANASAL SINUSES: No fluid levels. Mucosa normal. OTHER: No other significant finding. IMPRESSION: Extensive changes suggesting microvascular ischemia with no acute intracranial imaging f indings. EVIDENCE OF ACUTE STROKE: NO. TECHNICAL DOCUMENTATION: JOB ID: [id number] [employer]- All Rights Reserved Reading location - IP/workstation name: [email or web address]
[2017-12-25] MEDS ORDERED: NORMAL SALINE 1000 ML 200 ML IV PRN (21:06)
[2017-12-25 22:49] VITALS: BP 128/45
--- NOTE | 2017-12-25 22:50 | EKG REPORT ---
SEVERITY:- BORDERLINE ECG - SINUS RHYTHM BORDERLINE PROLONGED QT INTERVAL : Confirmed by: Brittni Alonso 25-Dec-2017 22:49:00
== END 2017-12-25 22:48 | disposition home or self-care (01) ==
LOC: ER 14:20
DX: I95.1 Orthostatic hypotension (principal); I12.0 Hypertensive chronic kidney disease with stage 5 chronic kidney disease or end stage renal disease; N18.6 End stage renal disease; Z99.2 Dependence on renal dialysis; R42 Dizziness and giddiness; R53.1 Weakness; Z79.899 Other long term (current) drug therapy; R06.02 Shortness of breath; I25.10 Atherosclerotic heart disease of native coronary artery without angina pectoris; J44.9 Chronic obstructive pulmonary disease, unspecified
CPT/HCPCS: 93005; 99285; 36415; 82553; 82550; 85025; 80053; 81001; 84484; 70551; 93010; J7030

== ENCOUNTER → 2018-01-16 | Outpatient (CLI) | payer MEDICARE, OTHER ==
[2018-01-16 09:49] LABS: ALANINE AMINOTRANSFERASE 20 U/L (9-52); ALBUMIN 3.5 g/dL (3.5-5.0); ALKALINE PHOSPHATASE 60 U/L (38-126); ASPARTATE AMINO TRANSFERASE 19 U/L (14-36); BILIRUBIN,DIRECT 0.3 mg/dL (0.0-0.4); BILIRUBIN,TOTAL 0.5 mg/dL (0.2-1.3); CHOLESTEROL 106.25 mg/dL (0-200); TOTAL PROTEIN 5.8 g/dL (6.3-8.2); TRIGLYCERIDES 67 mg/dL (<150)
[2018-01-16 10:00] LABS: DIRECT LDL 33 mg/dL (<100)
== END ==
LOC: OD 08:23
PROVIDERS: ATTEND Internal Medicine Cardiovascular Disease
DX: E78.00 Pure hypercholesterolemia, unspecified (principal); Z79.899 Other long term (current) drug therapy
CPT/HCPCS: 36415; 80061; 80076

== ENCOUNTER 2018-01-22 14:29 | Inpatient (IN) | payer MEDICARE, OTHER ==
[2018-01-22 15:03] LABS: ABSOLUTE BASOPHILS # (AUTO) 0.1 10^3/uL (0.0-0.2); ABSOLUTE EOSINOPHILS # (AUTO) 0.1 10^3/uL (0.0-0.6); ABSOLUTE MONOCYTES (AUTO) 0.5 10^3/uL (0.1-1.4); ABSOLUTE NEUT (AUTO) 4.1 10^3/uL (1.7-8.2); BASOPHILS % (AUTO) 0.9 % (0-2); EOSINOPHILS % (AUTO) 1.8 % (0-6); HEMATOCRIT 36.1 % (36.0-47.0); HEMOGLOBIN 12.4 g/dL (12.0-15.5); LYMPHOCYTES % (AUTO) 17.6 % (13-45); MEAN CORPUSCULAR HEMOGLOBIN 31.8 pg (27.0-33.4); MEAN CORPUSCULAR HGB CONC 34.2 g/dL (32.0-36.0); MEAN CORPUSCULAR VOLUME 93 fl (80-97); MONOCYTES % (AUTO) 9.3 % (3-13); PLATELET COUNT 270 10^3/uL (150-450); RED BLOOD COUNT 3.88 10^6/uL (3.72-5.28); RED CELL DISTRIBUTION WIDTH 14.5 % (11.5-14.0); SEGMENTED NEUTROPHILS % (AUTO) 70.4 % (42-78); TOTAL CELLS COUNTED % (AUTO) 100 %; WHITE BLOOD COUNT 5.8 10^3/uL (4.0-10.5)
--- NOTE | 2018-01-22 15:07 | ER Document Report ---
ED Neuro Symptoms/Deficit - General Chief Complaint: Weakness Stated Complaint: WEAKNESS Time Seen by Provider: 01/22/18 14:52 Mode of Arrival: Stretcher Information source: Patient TRAVEL OUTSIDE OF THE [place] IN LAST 30 DAYS: No - HPI Patient complains to provider of: Difficulty standing, Difficulty walking, Weakness Onset: This afternoon Awoke with symptoms: No Symptoms are: Constant Duration: Continues in ED Quality of pain: No pain Baseline Cognitive: Alert, oriented X 3 Baseline Gait: Walks w/o assistance Pre-existing weakness: Lower extremity, Upper extremity Notes: Patient is a 77-year-old female presenting to the emergency room via EMS from dialysis secondary to worsening left-sided weakness, patient has a history of CVA 2 in the past with some existing left-sided weakness, however she reports it is much worse today she first noticed it around 06/17[birth year]1930 today as she was walking to and from the bathroom at dialysis and had a difficult time using her left leg, she reports some left upper extremity weakness today as well, denies any chest pain or shortness of breath - Related Data Allergies/Adverse Reactions: Sulfa (Sulfonamide Antibiotics) Allergy (Severe, Verified 01/22/18 15:06) unsure pregabalin [From Lyrica] Adverse Reaction (Severe, Verified 01/22/18 15:06) irritable,weight gain Past Medical History - General Information source: Patient - Social History Smoking Status: Unknown if Ever Smoked Family History: CAD, Other - Past Medical History Cardiac Medical History: Reports: Hx Coronary Artery Disease, Hx Heart Attack - 2000, Hx Hypercholesterolemia, Hx Hypertension Denies: Hx Atrial Fibrillation Pulmonary Medical History: Reports: Hx COPD, Hx Sleep Apnea Denies: Hx Asthma, Hx Bronchitis, Hx Pneumonia Neurological Medical History: Reports: Hx Cerebrovascular Accident - LEFT SIDE WEAKER THAN RIGHT. Denies: Hx Seizures Endocrine Medical History: Reports: Hx Hypothyroidism. Denies: Hx Diabetes Mellitus Type 1, Hx Diabetes Mellitus Type 2 Renal/ Medical History: Reports: Hx End Stage Renal Disease, Hx Hemodialysis, Hx Renal Insufficiency - Chronic kidney disease stage III. Denies: Hx Peritoneal Dialysis GI Medical History: Reports: Hx Colonoscopy. Denies: Hx Hepatitis, Hx Hiatal Hernia. Comment Only: Hx Ulcer - DIVERTICULITIS Musculoskeletal Medical History: Denies Hx Arthritis Psychiatric Medical History: Denies: Hx Depression Infectious Medical History: Denies: Hx Hepatitis Past Surgical History: Reports: Hx Appendectomy, Hx Cardiac Catheterization, Hx Cardiac Surgery - STENT, Hx Cholecystectomy, Hx Coronary Stent - August 2014, Hx Tubal Ligation, Hx Vascular Surgery - PermCath placement for dialysis. Denies: Hx Hysterectomy, Hx Mastectomy, Hx Open Heart Surgery, Hx Pacemaker - Immunizations Hx Diphtheria, Pertussis, Tetanus Vaccination: Yes Hx Pneumococcal Vaccination: 07/07/12 Review of Systems - Review of Systems Constitutional: No symptoms reported EENT: No symptoms reported Cardiovascular: No symptoms reported Respiratory: No symptoms reported Gastrointestinal: No symptoms reported Genitourinary: No symptoms reported Female Genitourinary: No symptoms reported Musculoskeletal: No symptoms reported Skin: No symptoms reported Hematologic/Lymphatic: No symptoms reported Neurological/Psychological: See HPI -: Yes All other systems reviewed and negative Physical Exam - Vital signs Vitals: Resp BP 16 147/72 H 01/22/18 14:37 01/22/18 14:37 Interpretation: Normal - General General appearance: Appears well, Alert - HEENT Head: Normocephalic, Atraumatic Eyes: Normal Pupils: PERRL - Respiratory Respiratory status: No respiratory distress Chest status: Nontender Breath sounds: Normal Chest palpation: Normal - Cardiovascular Rhythm: Regular Heart sounds: Normal auscultation Murmur: No - Abdominal Inspection: Normal Distension: No distension Bowel sounds: Normal Tenderness: Nontender Organomegaly: No organomegaly - Back Back: Normal, Nontender - Extremities General upper extremity: Nontender, Normal color, Normal ROM, Normal temperature General lower extremity: Nontender, Normal color, Normal ROM, Normal temperature , Normal weight bearing. No: Lauro's sign - Neurological Neuro grossly intact: Yes Cognition: Normal Orientation: AAOx4 [place] Coma Scale Eye Opening: Spontaneous [place] Coma Scale Verbal: Oriented [place] Coma Scale Motor: Obeys Commands [place] Coma Scale Total: 15 Speech: Normal Motor strength normal: RUE, RLE Additional motor exam normals: Pronator drift - Left upper extremity, left lower extremity. No: Equal offset printer Sensory: Normal - Psychological Associated symptoms: Normal affect, Normal mood - Skin Skin Temperature: Warm Skin Moisture: Dry Skin Color: Normal Course - Re-evaluation Re-evalutation: 01/22/18 15:32 Conversation with patient and daughter at bedside regarding her findings which are consistent with acute CVA and whether to proceed with TPA or not, since patient has had CVA in the past she recalls conversations that she has had regarding TPA and has declined treatment with TPA in the past stating that her symptoms are "not that bad" because she can still talk and move her extremities , she recalls concern for conversion to a hemorrhagic stroke and for this reason once again declined TPA administration today 01/22/18 15:43 Patient discussed with hospitalist STEWART Ramirez who accepts patient for observation admission to the [facility] - Vital Signs Vital signs: Temp Pulse Resp BP Pulse Ox 97.8 F 16 147/72 H 01/22/18 14:38 01/22/18 14:38 01/22/18 14:37 - Laboratory Result Diagrams: 01/22/18 14:45 01/22/18 14:45 - Diagnostic Test Radiology reviewed: Image reviewed, Reports reviewed - EKG Interpretation by Me EKG shows normal: Sinus rhythm Rate: Normal Rhythm: NSR ED NIH Stroke Scale - NIH Stroke Scale *: 1. NIH scale should be completed with appropriate accompanying assessment tools. *: 2. The NIH should reflect what the patient is capable of doing and should not be coached by the clinician. 1a. Level of Consciousness: 0=Alert;keenly responsive -: 1=Drowsy -: 2=Obtunded -: 3=Coma/unresponsive or reflex to noxious stimuli. 1a. Responses: 0 1b. Orientation Questions: a. What month is it? -: b. How old are you? -: 0=Answers both questions correctly. -: 1=Answers one question correctly or patient is intubated or has orotracheal trauma. -: 2=Answers neither question correctly. 1b. Responses: 0 1c. Response to commands: a. Open and close eyes? -: b. Special Events Coordinator and release hand? -: Credit is given despite weakness. Demonstration of task is permitted. Substitute command if hands cannot be used. -: 0=Performs both tasks correctly -: 1=Performs one task correctly -: 2=Performs neither task correctly 1c. Responses: 0 2. Gaze: Establish eye contact and instruct patient to "Follow my finger" -: 0=Normal -: 1=Partial gaze palsy. Gaze is abnormal in one or both eyes, but where forced deviation or total gaze paresis is not present. -: 2=Forced deviation or total gaze paresis. 2. Responses: 0 3. Visual Tran: Sees fingers in all four quadrants. -: 0=No visual loss. -: 1=Partial hemianopsia. -: 2=Complete hemianopsia. -: 3=Bilateral hemianopsia (including Cortical blindness) 3. Responses: 0 4. Facial Movement: Instruct patient to: -: a. Show me your teeth -: b. Raise your eyebrows -: c. Close your eyes -: d. Smile -: 0=Normal symmetrical movement -: 1=Minor paralysis (flattened nasolabial fold, asymmetry on smiling). -: 2=Partial paralysis (total or near total paralysis of lower face). -: 3=Complete paralysis of upper and lower face 4. Responses: 1 5. Motor functions (left arm): Alternate sides and extend each arm with palms down (90 degrees if sitting or 45 degrees for supine). -: 0=No drift;limb holds for full 10 seconds. -: 1=Drift; limb holds but drifts down before full 10 seconds, but does not hit bed. -: 2=Some effort against gravity; limb cannot get to or maintain position. -: 3=No effort against gravity; limb falls. -: 4=No movement. -: UN=Amputation, joint fusion, explain in comments. 5. Responses (left arm): 1 5. Motor Functions (right arm): Alternate sides and extend each arm with palms down (90 degrees if sitting or 45 degrees for supine). -: 0=No drift;limb holds for full 10 seconds. -: 1=Drift; limb holds but drifts down before full 10 seconds, but does not hit bed. -: 2=Some effort against gravity; limb cannot get to or maintain position. -: 3=No effort against gravity; limb falls. -: 4=No movement. -: UN=Amputation, joint fusion, explain in comments. 5. Responses (right arm): 0 6. Motor Functions (left leg): With patient lying supine, alternate sides and extend each leg (30 degrees always while supine). -: 0=No drift, leg holds position for full 5 seconds -: 1=Drift; leg falls before full 5 seconds but does not hit bed. -: 2=Some effort against gravity, leg falls to bed but some effort against gravity. -: 3=No effort against gravity, leg falls to bed immediately. -: 4=No movement. -: UN=Amputation, joint fusion; explain in comments. 6. Responses (left leg): 3 6. Motor Functions (right leg): With patient lying supine, alternate sides and extend each leg (30 degrees always while supine). -: 0=No drift, leg holds position for full 5 seconds -: 1=Drift; leg falls before full 5 seconds but does not hit bed. -: 2=Some effort against gravity, leg falls to bed but some effort against gravity. -: 3=No effort against gravity, leg falls to bed immediately. -: 4=No movement. -: UN=Amputation, joint fusion; explain in comments. 6. Responses (right leg): 0 7. Limb Ataxia: With eyes open instruct patient to: -: a. "Touch your finger to your nose". -: b. "Touch your heel to your gallardo" -: 0=Absent -: 1=Present in one limb. -: 2=Present in two limbs. -: UN=Amputation or joint fusion; explain in comments. 7. Responses: 1 7. If ataxia present choose as appropriate: Left leg 8. Sensory: Test sensation using pinprick or noxious stimuli. Test as many body parts as possible. -: 0=Normal;no sensory loss -: 1=Mile to moderate sensory loss (patient feels pin prick but is less sharp on affected side). -: 2=Severe or total sensory loss. 8. Responses: 1 9. Best Language: Instruct patient to: -: a. "Describe what you see in this picture." -: b. "Name the items in this picture." -: c. "Read these sentences." -: 0=No aphasia, normal -: 1=Mild to moderate aphasia. -: 2=Severe aphasia -: 3=Mute, global aphasia, no usable speech or auditory comprehension. 9. Responses: 0 10. Articulation, Dysarthia: Instruct patient to: -: "Read these words" or "Repeat these words" -: 0=Normal -: 1=Mild to moderate; patient may slur some words but can be understood without difficulty. -: 2=Severe; patients speech so slurred as to be unintelligible in the absence of dysphasia. -: UN=Intubated or other physical barrier, explain in comments. 10. Responses: 0 11. Extinction or inattention: 0=No abnormality -: 1= Visual, tactile, auditory, spatial, or personal inattention or extinction to bilateral simulation in one or the sensory modalities. -: 2=Profound trena-inattention or trena-inattention to more than one modality; does not recognize own hand. 11. Responses: 0 Total Score: 7 Discharge - Discharge Clinical Impression: Acute CVA (cerebrovascular accident) Condition: Serious Disposition: ADMITTED OBSERVATION Admitting Provider: Hospitalist Unit Admitted: IMCU Referrals: LOUIE EVANS MD [Primary Care Provider] - Follow up as needed
[2018-01-22 15:09] LABS: PROTHROMBIN TIME 13.8 SEC (11.4-15.4)
[2018-01-22 15:10] LABS: PARTIAL THROMBOPLASTIN TIME 31.4 SEC (23.5-35.8)
--- NOTE | 2018-01-22 15:21 | RADIOLOGY REPORT (SQ) ---
EXAM DESCRIPTION: CT HEAD WITHOUT COMPLETED DATE/TIME: 01/22/2018 3:08 pm REASON FOR STUDY: left sided weakness COMPARISON: CT brain 10/22/2017, 06/13/2017, 11/06/2014, 04/17/2011 TECHNIQUE: Axial images acquired through the brain without intravenous contrast. Images reviewed wi th bone, brain and subdural windows. Additional sagittal and coronal reconstructions were generated. Images stored on PACS. All CT scanners at this facility use dose modulation, iterative reconstruction, and/or weight based d osing when appropriate to reduce radiation dose to as low as reasonably achievable (ALARA). [facility]: Dose Right [facility]: CareDose [facility]: Dose Right [facility]: Teradose 4D [facility]: Abzena RADIATION DOSE: CT Rad equipment meets quality standard of care and radiation dose reduction techniq ues were employed. CTDIvol: 53.2 mGy. DLP: 937 mGy-cm. mGy. LIMITATIONS: None. FINDINGS: VENTRICLES: Normal size and contour. CEREBRUM: No CT evidence of acute large territory ischemic change, acute intracranial hemorrhage, mas s effect, or midline shift. Extensive small vessel ischemic change in the hemispheric white matter wi th multiple lacunar infarcts in the right and left thalamus and basal ganglia, chronic. CEREBELLUM: No masses. No hemorrhage. No alteration of density. No evidence for acute infarction. EXTRAAXIAL SPACES: No fluid collections. No masses. ORBITS AND GLOBE: No intra- or extraconal masses. Normal contour of globe without masses. CALVARIUM: No fracture. PARANASAL SINUSES: No fluid or mucosal thickening. SOFT TISSUES: No mass or hematoma. OTHER: No other significant finding. IMPRESSION: Chronic white matter disease. No acute findings. EVIDENCE OF ACUTE STROKE: NO. COMMENT: Pertinent findings on the imaging study reported as a CRITICAL RESULT to NIC GORDON DO at15:10 on 01/22/2018. Category of Critical Result: CT code stroke Quality ID # [id number]: Final reports with documentation of one or more dose reduction techniques (e.g., Au tomated exposure control, adjustment of the mA and/or kV according to patient size, use of iterative reconstruction technique) TECHNICAL DOCUMENTATION: JOB ID: [id number] [employer]- All Rights Reserved Reading location - IP/workstation name: [facility]
[2018-01-22 15:24] LABS: ALANINE AMINOTRANSFERASE 24 U/L (9-52); ALBUMIN 3.7 g/dL (3.5-5.0); ALKALINE PHOSPHATASE 59 U/L (38-126); ANION GAP 10 (5-19); ASPARTATE AMINO TRANSFERASE 20 U/L (14-36); BILIRUBIN,DIRECT 0.2 mg/dL (0.0-0.4); BILIRUBIN,TOTAL 0.7 mg/dL (0.2-1.3); BLOOD UREA NITROGEN 21 mg/dL (7-20); CALCIUM 8.8 mg/dL (8.4-10.2); CARBON DIOXIDE 29 mmol/L (22-30); CHLORIDE 103 mmol/L (98-107); CREATINE KINASE 32 U/L (30-135); GLUCOSE 88 mg/dL (75-110); POTASSIUM 4.3 mmol/L (3.6-5.0); SODIUM 142.2 mmol/L (137-145); TOTAL PROTEIN 6.4 g/dL (6.3-8.2)
[2018-01-22 15:34] LABS: CREATINE KINASE MB 0.47 ng/mL (<4.55)
[2018-01-22 15:35] LABS: TROPONIN I < 0.012 ng/mL
--- NOTE | 2018-01-22 15:56 | RADIOLOGY REPORT (SQ) ---
EXAM DESCRIPTION: CHEST SINGLE VIEW COMPLETED DATE/TIME: 01/22/2018 3:34 pm REASON FOR STUDY: left sided weakness COMPARISON: 10/28/2017 EXAM PARAMETERS: NUMBER OF VIEWS: One view. TECHNIQUE: Single frontal radiographic view of the chest acquired. RADIATION DOSE: NA LIMITATIONS: None. FINDINGS: LUNGS AND PLEURA: No opacities, masses or pneumothorax. No pleural effusion. MEDIASTINUM AND HILAR STRUCTURES: No masses. Contour normal. HEART AND VASCULAR STRUCTURES: Heart normal in size. Normal vasculature. BONES: No acute findings. HARDWARE: None in the chest. OTHER: No other significant finding. IMPRESSION: NO ACUTE RADIOGRAPHIC FINDING IN THE CHEST. TECHNICAL DOCUMENTATION: JOB ID: [id number] [employer]- All Rights Reserved Reading location - IP/workstation name: [email or web address]
[2018-01-22] MEDS ORDERED: LABETALOL HCL INJ 20 MG/4 ML DISP.SYRIN IV PRN (16:00)
[2018-01-22] MEDS ORDERED: NORMAL SALINE 1000 ML 1,000 ML IV PRN (16:00)
[2018-01-22] MEDS ORDERED: TRAMADOL HCL 50 MG TABLET PO PRN (16:00)
[2018-01-22] MEDS ORDERED: MIDODRINE HCL 5 MG TABLET PO PRN ×2 (20:51→20:55)
--- NOTE | 2018-01-22 20:51 | PDOC CONSULTATION ---
Consultation Consult Date: 01/22/18 Attending physician:: LUCERO MOSQUEDA Consult reason:: I was asked see the patient to supervise dialysis while in the hospital. History of Present Illness Admission Date/PCP: 01/22/18 16:37 GIANNA BOURGEOIS MD History of Present Illness: EZRA SUERO is a 77 year old female known to me with history of ESRD on maintenance hemodialysis twice a week on Tuesdays and Saturdays; history of CVA with left-sided weakness 3 times on 06/2017, 10/2017, in December 2017; hypertension and coronary artery disease admitted today for strokelike symptoms. Today the patient went to dialysis on a regular scheduled time and was started on the machine around 11:15 AM. After about 30 minutes she was disconnected to go to the bathroom and she was having diarrhea. She was able to go back to her chair and was re-hooked on dialysis. After about 20 minutes she felt like going to the bathroom again so she was disconnected again and she went to the bathroom to have another bowel movement. On the way back to her chair the second time she stumbled in her left foot and felt lightheaded. She said she felt exactly the same when she had a stroke the last time. She felt like her left leg is weaker than usual in the left arm just slightly weaker than usual. Her blood pressure also went up to 160/80 followed by 180/90 according to the patient. Patient's blood pressure is usually in the low side requiring midodrine before dialysis. Prior to dialysis at home the blood pressure was 95/40 so she took her midodrine dose before going to dialysis. Patient denies any speech problem nor facial droop. She does not have any numbness. She then requested to be evaluated in the emergency room. She finished about 90 minutes of dialysis today. In the emergency room she had a CT scan of the head which was negative for any acute CVA however clinically she does have an acute CVA going on. She failed her swallow evaluation twice in the emergency room and up here in the floor. She has a slight shortness of breath. She denies chest pains, cough, nausea, vomiting, no fever. Before this episode she was able to recover a little bit from the last stroke in December and is able to walk with a cane at home and with her Rollator outside the house. She actually has been driving and drove herself to dialysis today. She continues to be on aspirin and Plavix. She has seen a neurologist in [place] and has a follow-up visit on February 13. 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 Hematology Medical History: Reports Anemia of Chronic Kidney Disease Past Surgical History Past Surgical History: Reports: Appendectomy, Cardiac Catheterization, Cholecystectomy, Coronary Stent - August 2014, Dialysis Access Surgery AVF, Tubal Ligation, Vascular Surgery - PermCath placement for dialysis Social History Information Source: [facility] Records Lives with: Family, Spouse/Significant other Smoking Status: Former Smoker Number of Years Smokin Last Time Smoked: 2004 Frequency of Alcohol Use: None Hx Recreational Drug Use: No Drugs: None Hx Prescription Drug Abuse: No - Advance Directive Resuscitation Status: Full Code Family History Family History: CVA - Mother, Hypertension - Sister, Other - Kidney stone on her mother and sister Parental Family History Reviewed: Yes Children Family History Reviewed: Yes Sibling(s) Family History Reviewed.: Yes Medication/Allergy Home Medications: Calcium Acetate [Phoslo 667 mg Capsule] 667 mg PO MEALS 01/22/18 Clopidogrel Bisulfate [Plavix 75 mg Tablet] 75 mg PO DAILY 01/22/18 Febuxostat [Uloric 40 mg Tablet] 40 mg PO DAILY 01/22/18 Levothyroxine Sodium [Synthroid 0.1 mg Tablet] 0.1 mg PO Q6AM 01/22/18 Metoprolol Succinate [Toprol Xl 50 mg Tab.sr] 50 mg PO DAILY 01/22/18 Midodrine HCl [Proamatine 5 mg Tablet] 5 mg PO TID 01/22/18 Rosuvastatin Calcium [Crestor 10 mg Tablet] 10 mg PO QHS 01/22/18 Allergies/Adverse Reactions: Sulfa (Sulfonamide Antibiotics) Allergy (Severe, Verified 01/22/18 15:06) unsure pregabalin [From Lyrica] Adverse Reaction (Severe, Verified 01/22/18 15:06) irritable,weight gain Review of Systems All systems: reviewed and no additional remarkable complaints except as stated Review of Systems: Constitutional: ABSENT: chills, fatigue, fever(s), headache(s), weight gain, weight loss Eyes: ABSENT: visual disturbances Ears: ABSENT: hearing changes Cardiovascular: ABSENT: chest pain, dyspnea on exertion, edema, orthropnea, palpitations Respiratory: ABSENT: cough, hemoptysis; slight shortness of breath Gastrointestinal: ABSENT: abdominal pain, constipation, diarrhea, hematemesis, hematochezia, nausea, vomiting Genitourinary: ABSENT: dysuria, hematuria Musculoskeletal: ABSENT: joint swelling Integumentary: ABSENT: rash, wounds Neurological: ABSENT: abnormal gait, abnormal speech, confusion, dizziness, numbness, syncope; admits left leg and arm weakness more than usual Psychiatric: ABSENT: anxiety, depression Endocrine: ABSENT: cold intolerance, heat intolerance, polydipsia, polyuria Hematologic/Lymphatic: ABSENT: easy bleeding, easy bruising, lymphadenopathy Physical Exam Vital Signs: Temp Pulse Resp BP Pulse Ox 98.4 F 67 18 149/69 H 94 01/22/18 19:22 01/22/18 20:00 01/22/18 20:00 01/22/18 20:00 01/22/18 20:00 Intake & Output 01/21/18 01/22/18 01/23/18 06:59 06:59 06:59 Weight 77.3 kg Exam: General appearance: no acute distress, cooperative, well-developed, well- nourished Head exam: PRESENT: atraumatic, normocephalic Eye exam: PRESENT: Conjunctiva slightly pale, EOMI, PERRLA. ABSENT: conjunctival injection, scleral icterus Mouth exam: PRESENT: moist, neck supple, tongue midline Neck exam: PRESENT: full ROM. ABSENT: carotid bruit, JVD, lymphadenopathy, thyromegaly Respiratory exam: PRESENT: clear to auscultation bilaterally. ABSENT: rales, rhonchi, stridor, wheezes Cardiovascular exam: PRESENT: RRR, +S1, +S2. ABSENT: systolic murmur Pulses: PRESENT: normal radial pulses, normal dorsalis pedis pulses GI/Abdominal exam: PRESENT: normal bowel sounds, soft. ABSENT: guarding, mass, tenderness Rectal exam: deferred Extremities exam: PRESENT: full ROM. ABSENT: calf tenderness, pedal edema Musculoskeletal: PRESENT: full ROM. ABSENT: deformity Neurological exam: PRESENT: alert, Awake, Oriented to person, Oriented to place , Oriented to time, reflexes normal, CN II-XII grossly intact. Motor exam left arm 3/5, left leg 1+/5. ABSENT: Sensory deficit Psychiatric exam: PRESENT: appropriate affect, normal mood. ABSENT: homicidal ideation, suicidal ideation Skin exam: PRESENT: intact, dry, warm. ABSENT: rash Results Laboratory Results: 01/22/18 17:09 Troponin I < 0.012 Laboratory 01/22/18 01/22/18 01/22/18 14:45 14:45 14:45 WBC 5.8 RBC 3.88 Hgb 12.4 Hct 36.1 MCV 93 MCH 31.8 MCHC 34.2 RDW 14.5 H Plt Count 270 Seg Neutrophils % 70.4 Lymphocytes % 17.6 Monocytes % 9.3 Eosinophils % 1.8 Basophils % 0.9 Absolute Neutrophils 4.1 Absolute Lymphocytes 1.0 Absolute Monocytes 0.5 Absolute Eosinophils 0.1 Absolute Basophils 0.1 PT 13.8 INR 1.00 APTT 31.4 Sodium 142.2 Potassium 4.3 Chloride 103 Carbon Dioxide 29 Anion Gap 10 BUN 21 H Creatinine 2.26 H Est GFR ( Amer) 25 L Est GFR (Non-Af Amer) 21 L Glucose 88 Calcium 8.8 Total Bilirubin 0.7 Direct Bilirubin 0.2 Neonat Total Bilirubin Not Reportable Neonat Direct Bilirubin Not Reportable Neonat Indirect Bili Not Reportable AST 20 ALT 24 Alkaline Phosphatase 59 Creatine Kinase 32 CK-MB (CK-2) Troponin I Total Protein 6.4 Albumin 3.7 01/22/18 01/22/18 14:45 17:09 WBC RBC Hgb Hct MCV MCH MCHC RDW Plt Count Seg Neutrophils % Lymphocytes % Monocytes % Eosinophils % Basophils % Absolute Neutrophils Absolute Lymphocytes Absolute Monocytes Absolute Eosinophils Absolute Basophils PT INR APTT Sodium Potassium Chloride Carbon Dioxide Anion Gap BUN Creatinine Est GFR ( Amer) Est GFR (Non-Af Amer) Glucose Calcium Total Bilirubin Direct Bilirubin Neonat Total Bilirubin Neonat Direct Bilirubin Neonat Indirect Bili AST ALT Alkaline Phosphatase Creatine Kinase CK-MB (CK-2) 0.47 Troponin I < 0.012 < 0.012 Total Protein Albumin Impressions: Chest X-Ray 01/22/18 14:58 IMPRESSION: NO ACUTE RADIOGRAPHIC FINDING IN THE CHEST. Head CT 01/22/18 14:58 IMPRESSION: Chronic white matter disease. No acute findings. EVIDENCE OF ACUTE STROKE: NO. Assessment & Plan - Diagnosis (1) Acute CVA (cerebrovascular accident) Is this a current diagnosis for this admission?: Yes Plan: Defer to primary service. (2) End stage renal failure on dialysis Is this a current diagnosis for this admission?: Yes Plan: We will plan to do dialysis tomorrow. (3) Coronary artery disease Qualifiers: Coronary Disease-Associated Artery/Lesion type: [place] artery Is this a current diagnosis for this admission?: Yes (4) HTN (hypertension) Is this a current diagnosis for this admission?: Yes Plan: Hold blood pressure medicines prior to dialysis. - Notes Notes: Thank you for this consultation. - Time Time Spent: 50 to 70 Minutes
[2018-01-22] MEDS: ATORVASTATIN CALCIUM 20 MG TABLET PO SCH (22:45)
--- NOTE | 2018-01-22 22:51 | EKG REPORT ---
SEVERITY:- NORMAL ECG - SINUS RHYTHM : Confirmed by: Brittni Alonso 22-Jan-2018 22:50:45
[2018-01-23 04:53] LABS: ABSOLUTE BASOPHILS # (AUTO) 0.1 10^3/uL (0.0-0.2); ABSOLUTE MONOCYTES (AUTO) 0.5 10^3/uL (0.1-1.4); ABSOLUTE NEUT (AUTO) 3.1 10^3/uL (1.7-8.2); BASOPHILS % (AUTO) 1.3 % (0-2); HEMATOCRIT 35.1 % (36.0-47.0); HEMOGLOBIN 12.2 g/dL (12.0-15.5); LYMPHOCYTES % (AUTO) 21.8 % (13-45); MEAN CORPUSCULAR HEMOGLOBIN 32.7 pg (27.0-33.4); MEAN CORPUSCULAR HGB CONC 34.7 g/dL (32.0-36.0); MEAN CORPUSCULAR VOLUME 94 fl (80-97); MONOCYTES % (AUTO) 10.9 % (3-13); PLATELET COUNT 246 10^3/uL (150-450); RED BLOOD COUNT 3.72 10^6/uL (3.72-5.28); RED CELL DISTRIBUTION WIDTH 14.6 % (11.5-14.0); TOTAL CELLS COUNTED % (AUTO) 100 %; WHITE BLOOD COUNT 4.8 10^3/uL (4.0-10.5)
[2018-01-23 05:16] LABS: ALANINE AMINOTRANSFERASE 21 U/L (9-52); ALBUMIN 3.3 g/dL (3.5-5.0); ALKALINE PHOSPHATASE 54 U/L (38-126); ANION GAP 10 (5-19); ASPARTATE AMINO TRANSFERASE 27 U/L (14-36); BILIRUBIN,DIRECT 0.3 mg/dL (0.0-0.4); BILIRUBIN,TOTAL 0.9 mg/dL (0.2-1.3); BLOOD UREA NITROGEN 23 mg/dL (7-20); CALCIUM 8.8 mg/dL (8.4-10.2); CARBON DIOXIDE 21 mmol/L (22-30); CHLORIDE 113 mmol/L (98-107); GLUCOSE 82 mg/dL (75-110); POTASSIUM 5.2 mmol/L (3.6-5.0); SODIUM 144.3 mmol/L (137-145); TOTAL PROTEIN 5.8 g/dL (6.3-8.2)
--- NOTE | 2018-01-23 09:07 | RADIOLOGY REPORT (SQ) ---
EXAM DESCRIPTION: MRI HEAD WITHOUT COMPLETED DATE/TIME: 01/22/2018 9:30 pm REASON FOR STUDY: stroke COMPARISON: MRI brain 04/17/2011, 11/07/2014, 06/13/2017, 10/22/2017, 12/25/2017 TECHNIQUE: Multiplanar imaging includes non-contrasted T1, T2, FLAIR, and diffusion with ADC map seq uences. Images stored on PACS. LIMITATIONS: None. FINDINGS: ANATOMY: No developmental anomalies. Normal vascular flow voids. Pituitary fossa normal. CSF SPACES: Normal in size and contour. No hemorrhage. CEREBRUM: No MR evidence of acute ischemic change, acute intracranial hemorrhage, mass effect, or mid line shift. There is extensive bifrontal and biparietal white matter increased FLAIR/ T2 signal from diffuse smal l vessel ischemic change in the hemispheres. Old infarct in the anterior limb left internal capsule. Old lacunar infarcts in the basal ganglia and right and left thalamus. POSTERIOR FOSSA: Mild chronic pontine small vessel ischemic change. . No hemorrhage. No edema, johanna s or mass effect. Internal auditory canals, cerebello-pontine angles, mastoids normal. DIFFUSION IMAGING: Negative for acute or sub-acute infarction. ORBITS: No masses. Globes normal. PARANASAL SINUSES: No fluid levels. Mucosa normal. OTHER: Susceptibility Imaging- T2 star gradient echo images demonstrate spotty hemosiderin staining i n the hemispheric white matter and along the old left anterior limb internal capsule infarct. IMPRESSION: No acute findings. Extensive chronic small vessel ischemic changes above EVIDENCE OF ACUTE STROKE: NO. TECHNICAL DOCUMENTATION: JOB ID: [id number] [employer]- All Rights Reserved Reading location - IP/workstation name: [email or web address]
--- NOTE | 2018-01-23 10:05 | PDOC H&P ---
History of Present Illness Admission Date/PCP: 01/22/18 16:37 GIANNA BOURGEOIS MD Patient complains of: Left sided weakness. Unable to use her left leg to walk or stand. History of Present Illness: EZRA SUERO is a 77 year old female who went for her regular dialysis appointment today. During dialysis the patient had an episode of diarrhea. When she returned to her chair she stated that she didn't feel well and wanted to cut her session short. When she got up to leave she was unable to use her left arm or left leg. She was brought to the ED. The patient carried a past medical history significant for strokes and TIA's which have left her with some residual weakness in her left side. She also carried past medical history positive for CAD, COPD, and subclavian steal syndrome. Past Medical History Cardiac Medical History: Reports: Coronary Artery Disease, Myocardial Infarction - 2000, Hyperlipidema, Hypertension, Other - Subclavian steal syndrome Denies: Atrial Fibrillation Pulmonary Medical History: Reports: Chronic Obstructive Pulmonary Disease (COPD) , Sleep Apnea Denies: Asthma, Bronchitis, Pneumonia Neurological Medical History: Reports: Ischemic CVA, Other - TIA, syncope, vertigo Denies: Seizures Endocrine Medical History: Reports: Hypothyroidism Denies: Diabetes Mellitus Type 1, Diabetes Mellitus Type 2 Renal/ Medical History: Reports: End Stage Renal Disease, Other - 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 GI Medical History: Denies: Hepatitis, Hiatal Hernia Musculoskeltal Medical History: Denies: Arthritis Psychiatric Medical History: Denies: Depression Hematology: Reports: Anemia - HX Denies: Sickle Cell Disease Past Surgical History Past Surgical History: Reports: Appendectomy, Cardiac Catheterization, Cholecystectomy, Coronary Stent - August 2014, Tubal Ligation, Vascular Surgery - PermCath placement for dialysis Denies: Amputation, Hysterectomy, Mastectomy, Pacemaker Social History Lives with: Family, Spouse/Significant other Smoking Status: Former Smoker Number of Years Smokin Last Time Smoked: 2004 Frequency of Alcohol Use: None Hx Recreational Drug Use: No Drugs: None Hx Prescription Drug Abuse: No - Advance Directive Resuscitation Status: Full Code Family History Family History: CAD, Other Parental Family History Reviewed: Yes Children Family History Reviewed: Yes Sibling(s) Family History Reviewed.: Yes Medication/Allergy Home Medications: Calcium Acetate [Phoslo 667 mg Capsule] 667 mg PO MEALS 01/22/18 Clopidogrel Bisulfate [Plavix 75 mg Tablet] 75 mg PO DAILY 01/22/18 Febuxostat [Uloric 40 mg Tablet] 40 mg PO DAILY 01/22/18 Levothyroxine Sodium [Synthroid 0.1 mg Tablet] 0.1 mg PO Q6AM 01/22/18 Metoprolol Succinate [Toprol Xl 50 mg Tab.sr] 50 mg PO DAILY 01/22/18 Midodrine HCl [Proamatine 5 mg Tablet] 5 mg PO TID 01/22/18 Rosuvastatin Calcium [Crestor 10 mg Tablet] 10 mg PO QHS 01/22/18 Allergies/Adverse Reactions: Sulfa (Sulfonamide Antibiotics) Allergy (Severe, Verified 01/22/18 15:06) unsure pregabalin [From Lyrica] Adverse Reaction (Severe, Verified 01/22/18 15:06) irritable,weight gain Review of Systems Constitutional: ABSENT: anorexia, chills, fever(s), weight gain, weight loss Eyes: ABSENT: visual disturbances Ears: ABSENT: hearing changes Nose, Mouth, and Throat: ABSENT: headache(s), sore throat, vertigo Cardiovascular: ABSENT: chest pain, dyspnea on exertion, palpitations Respiratory: ABSENT: dyspnea, sputum Gastrointestinal: PRESENT: diarrhea. ABSENT: abdominal pain, constipation, heartburn, hematemesis, hematochezia, nausea, vomiting Genitourinary: ABSENT: dysuria Musculoskeletal: ABSENT: joint swelling Integumentary: ABSENT: lesions, rash, wounds Neurological: PRESENT: focal weakness, weakness, other - Unable to walk.. ABSENT: confusion, dizziness Psychiatric: ABSENT: anxiety, depression Endocrine: ABSENT: cold intolerance, heat intolerance, polyuria Physical Exam Vital Signs: Temp Pulse Resp BP Pulse Ox 98.7 F 74 18 144/72 H 91 L 01/23/18 07:40 01/23/18 08:00 01/23/18 08:00 01/23/18 08:00 01/23/18 08:00 Intake & Output 01/22/18 01/23/18 01/24/18 06:59 06:59 06:59 Intake Total 575 Balance 575 Weight 75.7 kg General appearance: PRESENT: no acute distress, cooperative Head exam: ABSENT: atraumatic, normocephalic Eye exam: PRESENT: EOMI, PERRLA Mouth exam: PRESENT: moist, tongue midline. ABSENT: laceration Neck exam: ABSENT: JVD, lymphadenopathy, meningismus, tenderness, thyromegaly Respiratory exam: PRESENT: other - No increased work of breathing. No wheezes, rales, or rhonchi. No tactile fremitus. Cardiovascular exam: PRESENT: RRR. ABSENT: gallop, rubs, systolic murmur Pulses: PRESENT: normal carotid pulses, other - Diminished distal pulses. GI/Abdominal exam: PRESENT: normal bowel sounds, soft. ABSENT: hernia, mass, organolmegaly, tenderness Extremities exam: PRESENT: full ROM. ABSENT: tenderness, +1 edema Neurological exam: PRESENT: alert, awake, oriented to person, oriented to place , oriented to time, oriented to situation, CN II-XII grossly intact, motor sensory deficit - Flaccid paralysis to the left lower extremity. III/V weakness to the left upper extermity. Psychiatric exam: PRESENT: appropriate affect, normal mood. ABSENT: agitated Skin exam: PRESENT: dry, intact, warm Results Laboratory Results: 01/23/18 04:23 01/23/18 04:23 01/23/18 01/23/18 04:23 04:23 WBC 4.8 RBC 3.72 Hgb 12.2 Hct 35.1 L MCV 94 MCH 32.7 MCHC 34.7 RDW 14.6 H Plt Count 246 Seg Neutrophils % 65.0 Lymphocytes % 21.8 Monocytes % 10.9 Eosinophils % 1.0 Basophils % 1.3 Absolute Neutrophils 3.1 Absolute Lymphocytes 1.0 Absolute Monocytes 0.5 Absolute Eosinophils 0.0 Absolute Basophils 0.1 Sodium 144.3 Potassium 5.2 H Chloride 113 H Carbon Dioxide 21 L Anion Gap 10 BUN 23 H Creatinine 2.57 H Est GFR ( Amer) 22 L Est GFR (Non-Af Amer) 18 L Glucose 82 Calcium 8.8 Total Bilirubin 0.9 AST 27 ALT 21 Alkaline Phosphatase 54 Total Protein 5.8 L Albumin 3.3 L 01/22/18 01/22/18 01/23/18 17:09 22:14 04:23 Troponin I < 0.012 0.012 0.016 Impressions: Head MRI 01/22/18 00:00 IMPRESSION: No acute findings. Extensive chronic small vessel ischemic changes above EVIDENCE OF ACUTE STROKE: NO. Chest X-Ray 07/19/18 14:58 IMPRESSION: NO ACUTE RADIOGRAPHIC FINDING IN THE CHEST. Head CT 01/22/18 14:58 IMPRESSION: Chronic white matter disease. No acute findings. EVIDENCE OF ACUTE STROKE: NO. Assessment & Plan - Diagnosis (1) Acute CVA (cerebrovascular accident) Is this a current diagnosis for this admission?: Yes Plan: The patient will be admitted to a telemetry bed. She will receive and aspirin. A liberal approach will be taken with regard to treatment of her hypertension for the first 24 hours. She will have a stroke work up to include MRI, echocardiogram, and carotid doppler. She was offered TPA in the ED and declined. (2) COPD (chronic obstructive pulmonary disease) Qualifiers: COPD type: unspecified COPD Qualified Code(s): J44.9 - Chronic obstructive pulmonary disease, unspecified Is this a current diagnosis for this admission?: Yes Plan: As needed nebulizer treatments. (3) Coronary artery disease Qualifiers: Coronary Disease-Associated Artery/Lesion type: [place] artery [place] vs. transplanted heart: [place] heart Associated angina: without angina Qualified Code(s): I25.10 - Atherosclerotic heart disease of [place] coronary artery without angina pectoris Is this a current diagnosis for this admission?: Yes Plan: Stable. Continue home medications. Telemetry. (4) End stage renal failure on dialysis Is this a current diagnosis for this admission?: Yes Plan: Nephrology has been consulted for management of the patient's dialysis while she is inpatient. (5) Full code status Is this a current diagnosis for this admission?: Yes (6) History of stroke with residual deficit Is this a current diagnosis for this admission?: Yes (7) Hypothyroidism Qualifiers: Hypothyroidism type: acquired Qualified Code(s): E03.9 - Hypothyroidism, unspecified Is this a current diagnosis for this admission?: Yes Plan: Continue synthroid as at home. (8) Left leg weakness Is this a current diagnosis for this admission?: Yes Plan: Stroke work up. PT/OT. (9) Hyperlipidemia Qualifiers: Hyperlipidemia type: mixed hyperlipidemia Qualified Code(s): E78.2 - Mixed hyperlipidemia Is this a current diagnosis for this admission?: Yes Plan: Statin. (10) Hypertension Qualifiers: Hypertension type: essential hypertension Qualified Code(s): I10 - Essential (primary) hypertension Is this a current diagnosis for this admission?: Yes Plan: [place] management of hypertension for the first 48 hours after CVA. Will treat for SBP greater than 220. - Time Time Spent: Greater than 70 Minutes Medications reviewed and adjusted accordingly: Yes - Inpatient Certification Based on my medical assessment, after consideration of the patient's comorbidities, presenting symptoms, or acuity I expect that the services needed warrant INPATIENT care.: Yes I certify that my determination is in accordance with my understanding of Medicare's requirements for reasonable and necessary INPATIENT services [42 CFR 412.3e].: Yes Medical Necessity: Need Close Monitoring Due to Risk of Patient Decompensation, Need For Continuous Telemetry Monitoring, Need for Neurological Checks
[2018-01-23] MEDS: NORMAL SALINE 1000 ML 1,000 ML IV PRN (11:34)
--- NOTE | 2018-01-23 16:02 | RADIOLOGY REPORT (SQ) ---
EXAM DESCRIPTION: CAROTID DOPPLER COMPLETED DATE/TIME: 01/23/2018 3:48 pm REASON FOR STUDY: stroke COMPARISON: MRI brain 01/22/2018 CT brain 01/22/2018 MRI brain 12/25/2017 TECHNIQUE: Grayscale ultrasound, Doppler velocity and spectra, and color Doppler images acquired of the extra-cranial carotid and vertebral arteries. Images stored on PACS. LIMITATIONS: None. FINDINGS: RIGHT CAROTID CCA Velocities: Spotty calcific shadowing plaque in the right common carotid artery without flow sign ificant stenosis. ICA Velocities Peak systolic 1.2 m/s. End diastolic 0.10 m/s. Proximal ICA/CCA peak systolic ratio normal. Mixed calcific and noncalcific plaque is present at the right carotid bifurcation without flow signif icant stenosis proximal right ICA near the bifurcation. Right ICA above this level is difficult to v isualize due to technical factors. LEFT CAROTID CCA Velocities: Within normal limits. ICA Velocities Peak systolic 1.1 m/s. End diastolic 0.10 m/s. Proximal ICA/CCA peak systolic ratio normal. Mixed calcific and noncalcific plaque is present at the left carotid bifurcation without flow signifi cant stenosis. VERTEBRAL ARTERIES: Retrograde right vertebral artery flow similar compared to 2015 worrisome for sub clavian steal. Antegrade left vertebral artery flow SUBCLAVIAN ARTERIES: Not evaluated OTHER: No other significant finding. IMPRESSION: Calcific plaque at the carotid bifurcations without flow significant stenosis of the pro ximal ICAs by velocity criteria Retrograde right vertebral artery flow unchanged from 2015, question subclavian steal Antegrade left vertebral artery flow COMMENT: Quality ID #[id number]: Velocity criteria are extrapolated from the diameter data as defined by t he Society of Radiologists in Ultrasound Consensus Conference. Radiology 2003: 229; 340-346. TECHNICAL DOCUMENTATION: JOB ID: [id number] [employer]- All Rights Reserved Reading location - IP/workstation name: [facility], [facility]
[2018-01-23 16:48] LABS: CHOLESTEROL 90.03 mg/dL (0-200); TRIGLYCERIDES 61 mg/dL (<150)
--- NOTE | 2018-01-23 16:49 | PDOC PROGRESS REPORT ---
Subjective Progress Note for:: 01/23/18 Subjective:: I saw the patient during dialysis at around 825 this morning. Patient tells me that she feels better and that she can move her left leg a little bit including her left arm better than yesterday. Her blood pressure was slightly elevated at the initiation of dialysis. Otherwise no further complaints. Reason For Visit: ACUTE CVA WITH LEFT SIDED WEAKNESS Physical Exam Vital Signs: Temp Pulse Resp BP Pulse Ox 97.7 F 74 18 103/53 L 95 01/23/18 15:52 01/23/18 15:52 01/23/18 15:52 01/23/18 15:52 01/23/18 15:52 Intake & Output 01/22/18 01/23/18 01/24/18 06:59 06:59 06:59 Intake Total 575 Output Total 500 Balance 575 -500 Weight 75.7 kg 75.7 kg Vitals during dialysis: Blood pressure 170/92, heart rate of 73, blood flow rate 400 mL/min, dialysate flow rate 600 mL/min. Exam: General appearance: PRESENT: no acute distress, cooperative, well-developed, well-nourished Head exam: PRESENT: atraumatic, normocephalic Eye exam: PRESENT: conjunctiva pink, PERRLA. ABSENT: scleral icterus Neck exam: ABSENT: JVD Respiratory exam: PRESENT: Normal breath sounds. ABSENT: crackles, rales, rhonchi, unlabored, wheezes Cardiovascular exam: PRESENT: Regular rate rhythm -+S1, +S2. ABSENT: diastolic murmur, systolic murmur GI/Abdominal exam: PRESENT: normal bowel sounds, soft. ABSENT: guarding, mass, tenderness Extremities exam: ABSENT: No edema Neurological exam: PRESENT: alert, awake, oriented to person, place and time. Motor exam on the left arm about 3+/5 on the left leg about 2/5 Skin exam: PRESENT: dry, warm, Results Laboratory Results: 01/23/18 04:23 01/23/18 04:23 01/23/18 01/23/18 04:23 04:23 WBC 4.8 RBC 3.72 Hgb 12.2 Hct 35.1 L MCV 94 MCH 32.7 MCHC 34.7 RDW 14.6 H Plt Count 246 Seg Neutrophils % 65.0 Lymphocytes % 21.8 Monocytes % 10.9 Eosinophils % 1.0 Basophils % 1.3 Absolute Neutrophils 3.1 Absolute Lymphocytes 1.0 Absolute Monocytes 0.5 Absolute Eosinophils 0.0 Absolute Basophils 0.1 Sodium 144.3 Potassium 5.2 H Chloride 113 H Carbon Dioxide 21 L Anion Gap 10 BUN 23 H Creatinine 2.57 H Est GFR ( Amer) 22 L Est GFR (Non-Af Amer) 18 L Glucose 82 Calcium 8.8 Total Bilirubin 0.9 AST 27 ALT 21 Alkaline Phosphatase 54 Total Protein 5.8 L Albumin 3.3 L 01/22/18 01/22/18 01/23/18 17:09 22:14 04:23 Troponin I < 0.012 0.012 0.016 Impressions: Head MRI 01/22/18 00:00 IMPRESSION: No acute findings. Extensive chronic small vessel ischemic changes above EVIDENCE OF ACUTE STROKE: NO. Chest X-Ray 01/22/18 14:58 IMPRESSION: NO ACUTE RADIOGRAPHIC FINDING IN THE CHEST. Head CT 01/22/18 14:58 IMPRESSION: Chronic white matter disease. No acute findings. EVIDENCE OF ACUTE STROKE: NO. Carotid Doppler Study 01/23/18 00:00 IMPRESSION: Calcific plaque at the carotid bifurcations without flow significant stenosis of the proximal ICAs by velocity criteria Retrograde right vertebral artery flow unchanged from 2015, question subclavian steal Antegrade left vertebral artery flow Assessment & Plan - Diagnosis (1) End stage renal failure on dialysis Is this a current diagnosis for this admission?: Yes Plan: We did dialysis today for 2 hours, using the patient's AV fistula, with 2 potassium bath, blood flow rate of 400 mL per minute, dialysate flow rate of 6 mL per minute, ultrafiltration 0.5 L as tolerated, no heparin and no Procrit during dialysis. Patient was monitored throughout the treatment and tolerated the procedure without any complications. (2) Acute CVA (cerebrovascular accident) Is this a current diagnosis for this admission?: Yes Plan: Clinically he is slightly better than yesterday. Recommend to resume her anticoagulation with aspirin and Plavix but will defer this to the primary service. (3) Coronary artery disease Qualifiers: Coronary Disease-Associated Artery/Lesion type: [place] artery [place] vs. transplanted heart: [place] heart Associated angina: without angina Qualified Code(s): I25.10 - Atherosclerotic heart disease of [place] coronary artery without angina pectoris Is this a current diagnosis for this admission?: Yes (4) HTN (hypertension) Is this a current diagnosis for this admission?: Yes - Time Time with patient: 15-25 minutes
[2018-01-23 17:04] LABS: DIRECT LDL < 30 mg/dL (<100)
--- NOTE | 2018-01-23 18:29 | PDOC PROGRESS REPORT ---
Subjective Progress Note for:: 01/23/18 Subjective:: The patient states that she is feeling better. She has regained strength in her left upper extremity and some in her left lower extremity, but less than her upper extremity. Reason For Visit: ACUTE CVA WITH LEFT SIDED WEAKNESS Physical Exam Vital Signs: Temp Pulse Resp BP Pulse Ox 97.7 F 76 18 103/53 L 95 01/23/18 15:52 01/23/18 16:00 01/23/18 16:00 01/23/18 16:00 01/23/18 16:00 Intake & Output 01/22/18 01/23/18 01/24/18 06:59 06:59 06:59 Intake Total 575 Output Total 500 Balance 575 -500 Weight 75.7 kg 75.7 kg General appearance: PRESENT: no acute distress Respiratory exam: PRESENT: other - No increased work of breathing. No wheezes, rales, or rhonchi. No tactile fremitus. Cardiovascular exam: PRESENT: RRR, other - No lateral PMI. No thrills.. ABSENT : gallop, rubs, systolic murmur Pulses: PRESENT: other - Diminished distal pulses. GI/Abdominal exam: PRESENT: normal bowel sounds, soft. ABSENT: hernia, mass, organolmegaly, tenderness Extremities exam: ABSENT: clubbing, tenderness, +1 edema Neurological exam: PRESENT: alert, awake, oriented to person, oriented to place , oriented to time, oriented to situation, CN II-XII grossly intact, motor sensory deficit - weakness of the left lower extremity. Psychiatric exam: PRESENT: appropriate affect, normal mood Skin exam: PRESENT: dry, intact, warm Results Laboratory Results: 01/23/18 04:23 01/23/18 04:23 01/23/18 01/23/18 01/23/18 04:23 04:23 16:10 WBC 4.8 RBC 3.72 Hgb 12.2 Hct 35.1 L MCV 94 MCH 32.7 MCHC 34.7 RDW 14.6 H Plt Count 246 Seg Neutrophils % 65.0 Lymphocytes % 21.8 Monocytes % 10.9 Eosinophils % 1.0 Basophils % 1.3 Absolute Neutrophils 3.1 Absolute Lymphocytes 1.0 Absolute Monocytes 0.5 Absolute Eosinophils 0.0 Absolute Basophils 0.1 Sodium 144.3 Potassium 5.2 H Chloride 113 H Carbon Dioxide 21 L Anion Gap 10 BUN 23 H Creatinine 2.57 H Est GFR ( Amer) 22 L Est GFR (Non-Af Amer) 18 L Glucose 82 Calcium 8.8 Total Bilirubin 0.9 AST 27 ALT 21 Alkaline Phosphatase 54 Total Protein 5.8 L Albumin 3.3 L Triglycerides 61 Cholesterol 90.03 LDL Cholesterol Direct < 30 VLDL Cholesterol 12.0 HDL Cholesterol 47 01/22/18 01/22/18 01/23/18 17:09 22:14 04:23 Troponin I < 0.012 0.012 0.016 Impressions: Head MRI 01/22/18 00:00 IMPRESSION: No acute findings. Extensive chronic small vessel ischemic changes above EVIDENCE OF ACUTE STROKE: NO. Chest X-Ray 01/22/18 14:58 IMPRESSION: NO ACUTE RADIOGRAPHIC FINDING IN THE CHEST. Head CT 01/22/18 14:58 IMPRESSION: Chronic white matter disease. No acute findings. EVIDENCE OF ACUTE STROKE: NO. Carotid Doppler Study 01/23/18 00:00 IMPRESSION: Calcific plaque at the carotid bifurcations without flow significant stenosis of the proximal ICAs by velocity criteria Retrograde right vertebral artery flow unchanged from 2015, question subclavian steal Antegrade left vertebral artery flow Assessment & Plan - Diagnosis (1) Acute CVA (cerebrovascular accident) Is this a current diagnosis for this admission?: Yes Plan: The patient will be admitted to a telemetry bed. She will receive and aspirin. A liberal approach will be taken with regard to treatment of her hypertension for the first 24 hours. MRI demonstrates no acute CVA. Echocardiogram and carotid dopplers are pending. (2) COPD (chronic obstructive pulmonary disease) Qualifiers: COPD type: unspecified COPD Qualified Code(s): J44.9 - Chronic obstructive pulmonary disease, unspecified Is this a current diagnosis for this admission?: Yes Plan: As needed nebulizer treatments. (3) Coronary artery disease Qualifiers: Coronary Disease-Associated Artery/Lesion type: [place] artery [place] vs. transplanted heart: [place] heart Associated angina: without angina Qualified Code(s): I25.10 - Atherosclerotic heart disease of [place] coronary artery without angina pectoris Is this a current diagnosis for this admission?: Yes Plan: Stable. Continue home medications. Telemetry. (4) End stage renal failure on dialysis Is this a current diagnosis for this admission?: Yes Plan: Nephrology has been consulted for management of the patient's dialysis while she is inpatient. (5) Full code status Is this a current diagnosis for this admission?: Yes (6) History of stroke with residual deficit Is this a current diagnosis for this admission?: Yes (7) Hypothyroidism Qualifiers: Hypothyroidism type: acquired Qualified Code(s): E03.9 - Hypothyroidism, unspecified Is this a current diagnosis for this admission?: Yes Plan: Continue synthroid as at home. (8) Left leg weakness Is this a current diagnosis for this admission?: Yes Plan: Stroke work up. PT/OT. (9) Hyperlipidemia Qualifiers: Hyperlipidemia type: mixed hyperlipidemia Qualified Code(s): E78.2 - Mixed hyperlipidemia Is this a current diagnosis for this admission?: Yes Plan: Statin. (10) Hypertension Qualifiers: Hypertension type: essential hypertension Qualified Code(s): I10 - Essential (primary) hypertension Is this a current diagnosis for this admission?: Yes Plan: [place] management of hypertension for the first 48 hours after CVA. Will treat for SBP greater than 220. - Time Time Spent with patient: 25-34 minutes Medications reviewed and adjusted accordingly: Yes
[2018-01-23] MEDS ORDERED: ATORVASTATIN CALCIUM 20 MG TABLET PO SCH (22:00)
--- NOTE | 2018-01-23 22:00 | EKG REPORT ---
SEVERITY:- ABNORMAL ECG - SINUS RHYTHM CONSIDER LEFT VENTRICULAR HYPERTROPHY BORDERLINE PROLONGED QT INTERVAL : Confirmed by: Brittni Alonso 23-Jan-2018 22:00:06
[2018-01-24] MEDS: ATORVASTATIN CALCIUM 20 MG TABLET PO SCH (00:48)
[2018-01-24] MEDS: NORMAL SALINE 1000 ML 1,000 ML IV PRN (05:22)
[2018-01-24] MEDS: LEVOTHYROXINE SODIUM 0.1 MG TABLET PO SCH (05:24)
[2018-01-24 06:37] LABS: ANION GAP 10 (5-19); BLOOD UREA NITROGEN 19 mg/dL (7-20); CALCIUM 8.7 mg/dL (8.4-10.2); CARBON DIOXIDE 24 mmol/L (22-30); CHLORIDE 109 mmol/L (98-107); GLUCOSE 85 mg/dL (75-110); POTASSIUM 4.1 mmol/L (3.6-5.0); SODIUM 142.7 mmol/L (137-145)
[2018-01-24] MEDS: FEBUXOSTAT 40 MG TABLET PO SCH (10:25)
[2018-01-24] MEDS: CLOPIDOGREL BISULFATE 75 MG TABLET PO SCH (10:25)
--- NOTE | 2018-01-24 13:10 | XCELERA REPORT ---
[address] [address] Transthoracic Echocardiogram Report Name: EZRA SUERO Age: 77 yrs Gender: Female : 1940 Patient Status: Inpatient Patient Location: [address] [place] [address] Study Date: 01/23/2018 01:50 PM Height: 62 in Weight: 170 lb BSA: 1.8 m2 Procedure: A complete two-dimensional transthoracic echocardiogram was performed (2D, M-mode, spectral and color flow Doppler). The study was technically adequate with some images being suboptimal in quality. Reason For Study: stroke Ordering Physician: LUCERO MOSQUEDA Performed By: Eligio Howard Interpretation Summary The left ventricular ejection fraction is normal. There is mild concentric left ventricular hypertrophy. The left ventricle is grossly normal size. Doppler measurements suggest pseudonormalized left ventricular relaxation, which is associated with grade II/IV or mild to moderate diastolic dysfunction Wall motion cannot be accurately commented on, but no definite regional wall motion abnormalities noted. The right ventricle is grossly normal size. The right ventricular systolic function is normal. The right atrium is normal. The left atrial size is normal. There is no mitral valve stenosis. There is a mild amount of mitral regurgitation There is no aortic valve stenosis There is a trace amount of aortic regurgitation There is a mild amount of tricuspid regurgitation There is moderate pulmonary hypertension by echo Right ventricular systolic pressure is estimated to be elevated at 40- 50mmHg. The aortic root is not well visualized. The inferior vena cava appeared normal and decreased > 50% with respiration (RAP 5-10 mmHg) Minimal pericardial effusion. MMode/2D Measurements & Calculations RVDd: 3.5 cm LVIDd: 4.8 cm FS: 34.5 % Ao root diam: 3.1 cm IVSd: 0.88 cm LVIDs: 3.2 cm EDV(Teich): 108.8 ml LVPWd: 0.88 cmESV(Teich): 39.7 ml Ao root area: 7.4 cm2 EF(Teich): 63.5 % LA dimension: 3.3 cm LVOT diam: 1.9 cm LVOT area: 3.0 cm2 Doppler Measurements & Calculations MV E max cuong: MV P1/2t max cuong: Ao V2 max: LV V1 max P.8 cm/sec 93.4 cm/sec 148.9 cm/sec 4.7 mmHg MV A max cuong: MV P1/2t: 79.3 msec Ao max PG: LV V1 max: 102.2 cm/sec MVA(P1/2t): 2.8 cm2 8.9 mmHg 108.1 cm/sec MV E/A: 0.89 MV dec slope: LUCERO(V,D): 2.2 cm2 344.9 cm/sec2 MV dec time: 0.24 sec TV V2 max: PA V2 max: PI end-d cuong: 339.1 cm/sec 92.8 cm/sec 106.7 cm/sec TV max PG: PA max P.4 mmHg 46.0 mmHg Left Ventricle The left ventricle is grossly normal size. There is mild concentric left ventricular hypertrophy. The left ventricular ejection fraction is normal. Doppler measurements suggest pseudonormalized left ventricular relaxation, which is associated with grade II/IV or mild to moderate diastolic dysfunction. Wall motion cannot be accurately commented on, but no definite regional wall motion abnormalities noted. Right Ventricle The right ventricle is grossly normal size. There is normal right ventricular wall thickness. The right ventricular systolic function is normal. Atria The right atrium is normal. The left atrial size is normal. Interarterial septum not well visualized and not well dopplered. Cannot comment on ASD/PFO presence. Mitral Valve The mitral valve is grossly normal. There is no mitral valve stenosis. There is a mild amount of mitral regurgitation. Aortic Valve The aortic valve is grossly normal. There is no aortic valve stenosis. There is a trace amount of aortic regurgitation. Tricuspid Valve The tricuspid valve is not well visualized, but is grossly normal. There is no tricuspid stenosis. There is a mild amount of tricuspid regurgitation. There is moderate pulmonary hypertension by echo. Right ventricular systolic pressure is estimated to be elevated at 40-50mmHg. Pulmonic Valve The pulmonic valve is not well visualized. Great Vessels The aortic root is not well visualized. The inferior vena cava appeared normal and decreased > 50% with respiration (RAP 5-10 mmHg). Effusions Minimal pericardial effusion. Incidental Findings No definite cardiac source of CVA/TIA noted on this particular trans- thoracic study. Consider ANTONIO if clinically indicated. May consider mobile cardiac telemetry monitoring (MCT) for ruling out transient AFIB. : LUCERO MOSQUEDA > Brittni Alonso
[2018-01-24] MEDS ORDERED: METOPROLOL TARTRATE PF/INJ 5 MG/5 ML SDV IV ONE ×2 (14:54→15:02)
[2018-01-24] MEDS ORDERED: DILTIAZEM HCL INJ 25 MG/5 ML VIAL ONE (14:59)
[2018-01-24] MEDS ORDERED: DILTIAZEM HCL INJ 25 MG/5 ML VIAL IV ONE (15:03)
[2018-01-24] MEDS ORDERED: DILTIAZEM HCL/D5W 125 MG/125 ML RTUINJ IV PRN (15:04)
[2018-01-24] MEDS ORDERED: DEXTROSE 5%-WATER 500 ML with AMIODARONE HCL 900 MG IV PRN ×2 (15:20)
--- NOTE | 2018-01-24 15:32 | PDOC PROGRESS REPORT ---
Subjective Progress Note for:: 01/24/18 Subjective:: Patient is seen resting in the bedside chair. Her son is at the bedside. She denies any chest pain, shortness of breath or dyspnea at rest. She denies any nausea, vomiting or abdominal pain. She denies any diarrhea. She states her left arm weakness is almost back to normal. She continues to have weakness in the left leg however. She has been working with physical therapy this morning. She denies any significant arthralgias or myalgias. Remaining review of systems are negative. Reason For Visit: ACUTE CVA WITH LEFT SIDED WEAKNESS Physical Exam Vital Signs: Temp Pulse Resp BP Pulse Ox 97.6 F 80 17 138/67 H 91 L 01/24/18 07:45 01/24/18 08:00 01/24/18 08:00 01/24/18 08:00 01/24/18 08:00 Intake & Output 01/23/18 01/24/18 01/25/18 06:59 06:59 06:59 Intake Total 575 1230 Output Total 800 Balance 575 430 Weight 75.7 kg 76.1 kg General appearance: PRESENT: no acute distress, obese, well-developed, well- nourished Head exam: PRESENT: atraumatic, normocephalic Eye exam: PRESENT: conjunctiva pink, EOMI, PERRLA. ABSENT: scleral icterus Ear exam: PRESENT: normal external ear exam Mouth exam: PRESENT: moist, tongue midline Neck exam: ABSENT: carotid bruit, JVD, lymphadenopathy, thyromegaly Respiratory exam: PRESENT: clear to auscultation [place]. ABSENT: rales, rhonchi, wheezes Cardiovascular exam: PRESENT: RRR. ABSENT: diastolic murmur, rubs, systolic murmur Pulses: PRESENT: normal carotid pulses, normal radial pulses Vascular exam: PRESENT: normal capillary refill GI/Abdominal exam: PRESENT: normal bowel sounds, soft. ABSENT: distended, guarding, mass, organolmegaly, rebound, tenderness Rectal exam: PRESENT: deferred Extremities exam: PRESENT: full ROM. ABSENT: calf tenderness, clubbing, pedal edema Neurological exam: PRESENT: alert, awake, oriented to person, oriented to place , oriented to time, oriented to situation, CN II-XII grossly intact, other - 4/ 5. Muscle strength in the left upper extremity compared to 5/5 in the right. 3 /5 muscle strength in the left lower extremity compared to 5/5 in the right leg. ABSENT: motor sensory deficit Psychiatric exam: PRESENT: appropriate affect, normal mood. ABSENT: homicidal ideation, suicidal ideation Skin exam: PRESENT: dry, intact, warm. ABSENT: cyanosis, rash Results Laboratory Results: 01/23/18 04:23 01/24/18 05:16 01/23/18 01/24/18 16:10 05:16 Sodium 142.7 Potassium 4.1 Chloride 109 H Carbon Dioxide 24 Anion Gap 10 BUN 19 Creatinine 2.42 H Est GFR ( Amer) 24 L Est GFR (Non-Af Amer) 19 L Glucose 85 Calcium 8.7 Triglycerides 61 Cholesterol 90.03 LDL Cholesterol Direct < 30 VLDL Cholesterol 12.0 HDL Cholesterol 47 01/22/18 01/22/18 01/23/18 17:09 22:14 04:23 Troponin I < 0.012 0.012 0.016 Impressions: Head MRI 01/22/18 00:00 IMPRESSION: No acute findings. Extensive chronic small vessel ischemic changes above EVIDENCE OF ACUTE STROKE: NO. Chest X-Ray 01/22/18 14:58 IMPRESSION: NO ACUTE RADIOGRAPHIC FINDING IN THE CHEST. Head CT 01/22/18 14:58 IMPRESSION: Chronic white matter disease. No acute findings. EVIDENCE OF ACUTE STROKE: NO. Carotid Doppler Study 01/23/18 00:00 IMPRESSION: Calcific plaque at the carotid bifurcations without flow significant stenosis of the proximal ICAs by velocity criteria Retrograde right vertebral artery flow unchanged from 2015, question subclavian steal Antegrade left vertebral artery flow Assessment & Plan - Diagnosis (1) Acute CVA (cerebrovascular accident) Is this a current diagnosis for this admission?: Yes (2) Anemia Qualifiers: Anemia type: due to chronic kidney disease Chronic kidney disease stage: on chronic dialysis Qualified Code(s): N18.6 - End stage renal disease; D63.1 - Anemia in chronic kidney disease; D63.1 - Anemia in chronic kidney disease; Z99.2 - Dependence on renal dialysis; Z99.2 - Dependence on renal dialysis; Z99.2 - Dependence on renal dialysis; Z99.2 - Dependence on renal dialysis Is this a current diagnosis for this admission?: Yes (3) End stage renal failure on dialysis Is this a current diagnosis for this admission?: Yes (4) Left leg weakness Is this a current diagnosis for this admission?: Yes (6) Hyperlipidemia Qualifiers: Hyperlipidemia type: mixed hyperlipidemia Qualified Code(s): E78.2 - Mixed hyperlipidemia Is this a current diagnosis for this admission?: Yes (7) Hypertension Qualifiers: Hypertension type: essential hypertension Qualified Code(s): I10 - Essential (primary) hypertension Is this a current diagnosis for this admission?: Yes (9) Atrial fibrillation with RVR Is this a current diagnosis for this admission?: Yes Plan: Patient went into afib with RVR with HR up to 180's with runs of NSVT. Patient with BP 136/98. Given 5 mg IV lopressor which brought her heart rate down to 120 's. Started on IV amiodarone after discussing case with Dr Alonso. Labs pending (10) NSVT (nonsustained ventricular tachycardia) Is this a current diagnosis for this admission?: Yes Plan: Resolved after IV lopressor. IV amiodarone. Echo shows normal EF with grade 2/4 diastolic heart failure - Time Time Spent with patient: 25-34 minutes Total Critical Time (Minutes): 20 Medications reviewed and adjusted accordingly: Yes
--- NOTE | 2018-01-24 18:54 | PDOC CONSULTATION ---
Consultation Consult Date: 01/24/18 Attending physician:: EM BARRAZA Consult reason:: A. fib with RVR and ventricular tachyarrhythmia History of Present Illness Admission Date/PCP: 01/22/18 16:37 GIANNA BOURGEOIS MD Patient complains of: Palpitations and shortness of breath History of Present Illness: EZRA PARHAM is a 77 year old female known to me with history of ESRD on maintenance hemodialysis twice a week on Tuesdays and Saturdays; history of CVA with left-sided weakness 3 times on 06/2017, 10/2017, in December 2017; hypertension and coronary artery disease admitted today for strokelike symptoms. Today the patient went to dialysis on a regular scheduled time and was started on the machine around 11:15 AM. After about 30 minutes she was disconnected to go to the bathroom and she was having diarrhea. She was able to go back to her chair and was re-hooked on dialysis. After about 20 minutes she felt like going to the bathroom again so she was disconnected again and she went to the bathroom to have another bowel movement. On the way back to her chair the second time she stumbled in her left foot and felt lightheaded. She said she felt exactly the same when she had a stroke the last time. She felt like her left leg is weaker than usual in the left arm just slightly weaker than usual. Her blood pressure also went up to 160/80 followed by 180/90 according to the patient. Patient's blood pressure is usually in the low side requiring midodrine before dialysis. Prior to dialysis at home the blood pressure was 95/40 so she took her midodrine dose before going to dialysis. Patient denies any speech problem nor facial droop. She does not have any numbness. She then requested to be evaluated in the emergency room. She finished about 90 minutes of dialysis today. In the emergency room she had a CT scan of the head which was negative for any acute CVA however clinically she does have an acute CVA going on. She failed her swallow evaluation twice in the emergency room and up here in the floor. She has a slight shortness of breath. She denies chest pains, cough, nausea, vomiting, no fever. Before this episode she was able to recover a little bit from the last stroke in December and is able to walk with a cane at home and with her Rollator outside the house. She actually has been driving and drove herself to dialysis today. She continues to be on aspirin and Plavix. She has seen a neurologist in [place] and has a follow-up visit on February 13. This history obtained by the senior db2 systems programmer was reviewed and confirmed. This afternoon all of a sudden patient complained of palpitations and some shortness of breath. She was noted to be in atrial fibrillation with rapid ventricular response. Some wide-complex tachycardia was also noted, which by itself looked to be ventricular tachycardia however since patient also had atrial fibrillation with rapid ventricular response, could well be aberrant conduction. Patient did have a 2D echocardiogram yesterday, which was reviewed. It showed LVEF to be relatively well-preserved. Past Medical History Cardiac Medical History: Reports: Coronary Artery Disease, Myocardial Infarction - 2000, Hyperlipidema, Hypertension, Other - Subclavian steal syndrome Denies: Atrial Fibrillation Pulmonary Medical History: Reports: Chronic Obstructive Pulmonary Disease (COPD) , Sleep Apnea Denies: Asthma, Bronchitis, Pneumonia Neurological Medical History: Reports: Ischemic CVA, Other - TIA, syncope, vertigo Denies: Seizures Endocrine Medical History: Reports: Hypothyroidism Denies: Diabetes Mellitus Type 1, Diabetes Mellitus Type 2 Renal/ Medical History: Reports: End Stage Renal Disease, Other - 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 GI Medical History: Denies: Hepatitis, Hiatal Hernia Musculoskeltal Medical History: Denies: Arthritis Psychiatric Medical History: Denies: Depression Hematology: Reports: Anemia - HX Denies: Sickle Cell Disease Past Surgical History Past Surgical History: Reports: Appendectomy, Cardiac Catheterization, Cholecystectomy, Coronary Stent - August 2014, Tubal Ligation, Vascular Surgery - PermCath placement for dialysis Denies: Amputation, Hysterectomy, Mastectomy, Pacemaker Social History Information Source: Patient Lives with: Family, Spouse/Significant other Smoking Status: Former Smoker Number of Years Smokin Last Time Smoked: 2004 Frequency of Alcohol Use: None Hx Recreational Drug Use: No Drugs: None Hx Prescription Drug Abuse: No - Advance Directive Resuscitation Status: Full Code Surrogate healthcare decision maker:: Yesenia Parham, patient's daughter Family History Family History: CAD, Other Parental Family History Reviewed: Yes Children Family History Reviewed: Yes Sibling(s) Family History Reviewed.: Yes Medication/Allergy Home Medications: Calcium Acetate [Phoslo 667 mg Capsule] 667 mg PO MEALS 01/22/18 Clopidogrel Bisulfate [Plavix 75 mg Tablet] 75 mg PO DAILY 01/22/18 Febuxostat [Uloric 40 mg Tablet] 40 mg PO DAILY 01/22/18 Levothyroxine Sodium [Synthroid 0.1 mg Tablet] 0.1 mg PO Q6AM 01/22/18 Metoprolol Succinate [Toprol Xl 50 mg Tab.sr] 50 mg PO DAILY 01/22/18 Midodrine HCl [Proamatine 5 mg Tablet] 5 mg PO TID 01/22/18 Rosuvastatin Calcium [Crestor 10 mg Tablet] 10 mg PO QHS 01/22/18 Allergies/Adverse Reactions: Sulfa (Sulfonamide Antibiotics) Allergy (Severe, Verified 01/22/18 15:06) unsure pregabalin [From Lyrica] Adverse Reaction (Severe, Verified 01/22/18 15:06) irritable,weight gain Review of Systems Review of Systems: Please see history of present illness and past medical history as wall. Constitutional: No fever or chills reported. Head : No recent chronic headaches, recent head injury. Eyes: No recent eye pain, diplopia, redness, discharge, acute visual changes. Ears: No recent chronic ear pain, acute hearing loss, ear discharge. Oral cavity: No recent ulcerations, bleeding, oral cavity discomfort. Neck: No recent acute neck pain reported. Hematologic: No recent easy bruising or bleeding. Lymphatic: No recent lymph node enlargement reported. Cardiovascular system review: See history of present illness. Respiratory system review: No hemoptysis or blood clots in the lungs reported. Mild Shortness of breath on exertion Gastrointestinal system review: Negative for any recent acute hematemesis, melena. Genitourinary system review: No recent acute or chronic hematuria, flank pain, UTI etc. reported. Patient on chronic hemodialysis. Skin system review: Negative for any recent abnormal bruising, no rash, no pruritus reported. Neurologic: History of prior stroke, no history of seizure disorder Psychologic: No history of major psychosis or major depression reported. Musculoskeletal: Minor aches and pains reported. No acute joint swelling reported. Endocrine: No recent polyuria, polydipsia, recent heat or cold intolerance. Physical Exam Vital Signs: Temp Pulse Resp BP Pulse Ox 97.8 F 102 H 20 123/84 99 01/24/18 14:44 01/24/18 17:15 01/24/18 16:00 01/24/18 17:15 01/24/18 16:00 Intake & Output 01/23/18 01/24/18 01/25/18 06:59 06:59 06:59 Intake Total 575 1230 318 Output Total 800 Balance 575 430 318 Weight 75.7 kg 76.1 kg Exam: GENERAL: well-nourished and in no acute distress. Alert and oriented x3 HEAD: Atraumatic, normocephalic. EYES: Pupils equal round and reactive to light, extraocular movements intact, sclera anicteric, conjunctiva are normal. ENT: TMs normal, nares patent, oropharynx clear without exudates. Moist mucous membranes. No oral ulcerations or bleeding gums noted NECK: supple without lymphadenopathy. Trachea is central. No cervical or axillary lymphadenopathy noted. Carotids are 2+, JVD WNL LUNGS: Respiration seems nonlabored, no significant accessory muscle action noted. Breath sounds clear to auscultation bilaterally and equal noted. No wheezes rales or rhonchi noted. No significant dullness noted on percussion. CHEST: Palpation of the chest wall shows no significant chest wall tenderness. 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 ABDOMEN: Soft, no significant tenderness appreciated, normoactive bowel sounds. No guarding, no rebound. No rigidity noted . No masses appreciated. EXTREMITIES: Pedal pulses are 1-2+, no calf tenderness noted. No clubbing or cyanosis. negative pedal edema noted NEUROLOGICAL: Focused neurological exam showed no significant neurologic deficit. Normal speech, patient describes mild left-sided weakness. PSYCH: Normal mood, normal affect. Judgment and insight within normal limits. SKIN: No significant ecchymosis, skin is noted to be warm. MUSCULOSKELETAL EXAM: No significant acute joint swelling noted. Results Laboratory Results: 01/23/18 04:23 01/24/18 05:16 01/24/18 01/24/18 05:16 15:24 Sodium 142.7 Potassium 4.1 Chloride 109 H Carbon Dioxide 24 Anion Gap 10 BUN 19 Creatinine 2.42 H Est GFR ( Amer) 24 L Est GFR (Non-Af Amer) 19 L Glucose 85 Calcium 8.7 Magnesium 2.0 01/22/18 01/22/18 01/23/18 17:09 22:14 04:23 Troponin I < 0.012 0.012 0.016 01/24/18 15:24 Troponin I < 0.012 EKG Comments: Yesterday's EKG shows sinus rhythm, no acute ST-T wave changes noted. Today's EKG shows atrial fibrillation with rapid ventricular response. Telemetry strips shows intermittent runs of wide-complex tachycardia. Impressions: Head MRI 01/22/18 00:00 IMPRESSION: No acute findings. Extensive chronic small vessel ischemic changes above EVIDENCE OF ACUTE STROKE: NO. Chest X-Ray 01/22/18 14:58 IMPRESSION: NO ACUTE RADIOGRAPHIC FINDING IN THE CHEST. Head CT 01/22/18 14:58 IMPRESSION: Chronic white matter disease. No acute findings. EVIDENCE OF ACUTE STROKE: NO. Carotid Doppler Study 01/23/18 00:00 IMPRESSION: Calcific plaque at the carotid bifurcations without flow significant stenosis of the proximal ICAs by velocity criteria Retrograde right vertebral artery flow unchanged from 2015, question subclavian steal Antegrade left vertebral artery flow Assessment & Plan - Diagnosis (1) Atrial fibrillation with RVR Is this a current diagnosis for this admission?: Yes (2) NSVT (nonsustained ventricular tachycardia) Is this a current diagnosis for this admission?: Yes (3) Acute CVA (cerebrovascular accident) Is this a current diagnosis for this admission?: Yes (4) COPD (chronic obstructive pulmonary disease) Qualifiers: COPD type: unspecified COPD Qualified Code(s): J44.9 - Chronic obstructive pulmonary disease, unspecified Is this a current diagnosis for this admission?: Yes (5) Coronary artery disease Qualifiers: Coronary Disease-Associated Artery/Lesion type: [place] artery [place] vs. transplanted heart: campo heart Associated angina: without angina Qualified Code(s): I25.10 - Atherosclerotic heart disease of camp[place] coronary artery without angina pectoris Is this a current diagnosis for this admission?: Yes (7) Hyperlipidemia Qualifiers: Hyperlipidemia type: mixed hyperlipidemia Qualified Code(s): E78.2 - Mixed hyperlipidemia Is this a current diagnosis for this admission?: Yes (8) Hypertension Qualifiers: Hypertension type: essential hypertension Qualified Code(s): I10 - Essential (primary) hypertension Is this a current diagnosis for this admission?: Yes - Notes Notes: Atrial fibrillation with rapid ventricular response: Patient went into it suddenly. Patient has history of prior cerebrovascular accident. It is quite likely that this could be the cause of patient's CVA. Patient has history of hypertension and has been on Midodrin drip. At this point I feel that patient will benefit from amiodarone bolus and drip protocol. This was started. Nonsustained ventricular tachycardia: Difficult to be sure whether it is just aberrant conduction or VT. Feel that amiodarone will be well used in this situation. Acute cerebrovascular accident: Recommend chronic anticoagulation. COPD: Currently stable End-stage renal disease: Patient on dialysis treatment and is being followed by senior db2 systems programmer. Dyslipidemia: Continue current management plans with Crestor. Hypertension: Blood pressure under reasonable control. Patient has history of intermittent hypotension. - Time Time Spent: 30 to 50 Minutes - CODE STATUS was discussed, patient remains full code. Surrogate decision-maker Yesenia Parham. Multiple medical problems were addressed. More than 50% of the time spent coordinating care, discussing management plans with involved caregivers. Management plans discussed with involved personnels. Medical decision making was of moderate to high complexity , patient's has multiple comorbidities. Medications reviewed and adjusted accordingly: Yes
[2018-01-24] MEDS: ROSUVASTATIN 10 MG PO SCH (21:03)
--- NOTE | 2018-01-24 21:54 | EKG REPORT ---
SEVERITY:- BORDERLINE ECG - SINUS RHYTHM BORDERLINE T WAVE ABNORMALITIES BORDERLINE PROLONGED QT INTERVAL : Confirmed by: Brittni Alonso 24-Jan-2018 21:54:35
--- NOTE | 2018-01-24 21:56 | EKG REPORT ---
SEVERITY:- ABNORMAL ECG - ATRIAL FIBRILLATION BORDERLINE INFERIOR Q WAVES REPOL ABNRM SUGGESTS ISCHEMIA, DIFFUSE LEADS BORDERLINE PROLONGED QT INTERVAL : Confirmed by: Brittni Alonso 24-Jan-2018 21:55:45
[2018-01-24] MEDS ORDERED: ROSUVASTATIN 10 MG PO SCH (22:00)
[2018-01-25] MEDS: LEVOTHYROXINE SODIUM 0.1 MG TABLET PO SCH (05:16)
[2018-01-25] MEDS: FEBUXOSTAT 40 MG TABLET PO SCH (09:15)
[2018-01-25] MEDS: CLOPIDOGREL BISULFATE 75 MG TABLET PO SCH (09:15)
[2018-01-25] MEDS ORDERED: AMIODARONE HCL 200 MG TABLET PO ONE (12:00)
[2018-01-25] MEDS ORDERED: ALPRAZOLAM 0.5 MG TABLET PO PRN (13:24)
--- NOTE | 2018-01-25 15:22 | PDOC PROGRESS REPORT ---
Subjective Progress Note for:: 01/25/18 Subjective:: Patient seems to be doing better with gradual improvement. Pt is denying any chest arm or neck discomfort. Patient denying any PND, orthopnea. Patient denied any sustained palpitations, dizziness, syncope, near syncope. Patient denying any fever chills. Patient denying any other significant discomfort. Patient is patient converted to sinus rhythm from atrial fibrillation. Currently maintaining sinus rhythm. Review of systems: Rest review of systems negative. Medications: Medications have been reviewed. Reason For Visit: ACUTE CVA WITH LEFT SIDED WEAKNESS Physical Exam Vital Signs: Temp Pulse Resp BP Pulse Ox 97.7 F 67 17 144/68 H 97 01/25/18 11:43 01/25/18 12:00 01/25/18 12:00 01/25/18 12:00 01/25/18 12:00 Intake & Output 01/24/18 01/25/18 01/26/18 06:59 06:59 06:59 Intake Total 1230 1553 118 Output Total 800 Balance 430 1553 118 Weight 76.1 kg 81.1 kg Exam: GENERAL: well-nourished and in no acute distress. Alert and oriented x3 HEAD: Atraumatic, normocephalic. EYES: Pupils equal round and reactive to light, extraocular movements intact, sclera anicteric, conjunctiva are normal. ENT: TMs normal, nares patent, oropharynx clear without exudates. Moist mucous membranes. No oral ulcerations or bleeding gums noted NECK: supple without lymphadenopathy. Trachea is central. No cervical or axillary lymphadenopathy noted. Carotids are 2+, JVD WNL LUNGS: Respiration seems nonlabored, no significant accessory muscle action noted. Breath sounds clear to auscultation bilaterally and equal noted. No wheezes rales or rhonchi noted. No significant dullness noted on percussion. CHEST: Palpation of the chest wall shows no significant chest wall tenderness. 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 ABDOMEN: Soft, no significant tenderness appreciated, normoactive bowel sounds. No guarding, no rebound. No rigidity noted . No masses appreciated. EXTREMITIES: Pedal pulses are 1-2+, no calf tenderness noted. No clubbing or cyanosis. negative pedal edema noted. Fistula noted left arm. NEUROLOGICAL: Focused neurological exam showed no significant neurologic deficit. Normal speech, no focal weakness appreciated. PSYCH: Normal mood, normal affect. Judgment and insight within normal limits. SKIN: No significant ecchymosis, skin is noted to be warm. MUSCULOSKELETAL EXAM: No significant acute joint swelling noted. Results Laboratory Results: 01/23/18 04:23 01/24/18 05:16 01/24/18 15:24 Magnesium 2.0 01/22/18 01/22/18 01/23/18 17:09 22:14 04:23 Troponin I < 0.012 0.012 0.016 01/24/18 01/24/18 01/25/18 15:24 21:37 03:15 Troponin I < 0.012 0.025 0.028 EKG Comments: Twelve-lead EKG shows sinus rhythm. No acute ST-T wave changes noted. Telemetry strips confirms conversion to sinus rhythm Impressions: Head MRI 01/22/18 00:00 IMPRESSION: No acute findings. Extensive chronic small vessel ischemic changes above EVIDENCE OF ACUTE STROKE: NO. Chest X-Ray 01/22/18 14:58 IMPRESSION: NO ACUTE RADIOGRAPHIC FINDING IN THE CHEST. Head CT 01/22/18 14:58 IMPRESSION: Chronic white matter disease. No acute findings. EVIDENCE OF ACUTE STROKE: NO. Carotid Doppler Study 01/23/18 00:00 IMPRESSION: Calcific plaque at the carotid bifurcations without flow significant stenosis of the proximal ICAs by velocity criteria Retrograde right vertebral artery flow unchanged from 2015, question subclavian steal Antegrade left vertebral artery flow Assessment & Plan - Diagnosis (1) Atrial fibrillation with RVR Is this a current diagnosis for this admission?: Yes (2) NSVT (nonsustained ventricular tachycardia) Is this a current diagnosis for this admission?: Yes (3) Acute CVA (cerebrovascular accident) Is this a current diagnosis for this admission?: Yes (4) COPD (chronic obstructive pulmonary disease) Qualifiers: Qualified Code(s): J44.9 - Chronic obstructive pulmonary disease, unspecified Is this a current diagnosis for this admission?: Yes (5) Coronary artery disease Qualifiers: Qualified Code(s): I25.10 - Atherosclerotic heart disease of [place] coronary artery without angina pectoris Is this a current diagnosis for this admission?: Yes (7) Hyperlipidemia Qualifiers: Qualified Code(s): E78.2 - Mixed hyperlipidemia Is this a current diagnosis for this admission?: Yes (8) Hypertension Qualifiers: Qualified Code(s): I10 - Essential (primary) hypertension Is this a current diagnosis for this admission?: Yes - Notes Notes: Atrial fibrillation with rapid ventricular response: Patient now converted back to sinus rhythm. Recommend institution of chronic anticoagulation with either Coumadin or Eliquis. Patient placed on p.o. amiodarone at 200 mg p.o. twice daily. Plan on giving it to her at least for 1 month if not longer. Patient has history of prior cerebrovascular accident. It is quite likely that this could be the cause of patient's CVA. Patient has history of hypertension and has been on Midodrin Nonsustained ventricular tachycardia: Difficult to be sure whether it is just aberrant conduction or VT. Feel that amiodarone will be well used in this situation. Acute cerebrovascular accident: Recommend chronic anticoagulation. COPD: Currently stable End-stage renal disease: Patient on dialysis treatment and is being followed by director industrial relations. Dyslipidemia: Continue current management plans with Crestor. Hypertension: Blood pressure under reasonable control. Patient has history of intermittent hypotension. - Time Time with patient: Greater than 35 minutes - CODE STATUS was discussed, patient remains full code. Surrogate decision-maker unchanged. Multiple medical problems were addressed. More than 50% of the time spent coordinating care, discussing management plans with involved caregivers. Management plans discussed with involved personnels. Medical decision making was of moderate to high complexity, patient's has multiple comorbidities. Medications reviewed and adjusted accordingly: Yes
--- NOTE | 2018-01-25 15:24 | PDOC PROGRESS REPORT ---
Subjective Progress Note for:: 01/25/18 Subjective:: Patient is seen resting in the bedside chair. Her brother and are at bedside. She denies any chest pain, shortness of breath or dyspnea at rest. She denies any nausea, vomiting or abdominal pain. She denies any diarrhea. She states her left arm weakness is almost back to normal. She continues to have weakness in the left leg however. She has been working with physical therapy this morning. She denies any significant arthralgias or myalgias. Remaining review of systems are negative. Reason For Visit: ACUTE CVA WITH LEFT SIDED WEAKNESS Physical Exam Vital Signs: Temp Pulse Resp BP Pulse Ox 97.7 F 67 17 144/68 H 97 01/25/18 11:43 01/25/18 11:43 01/25/18 11:43 01/25/18 11:43 01/25/18 11:43 Intake & Output 01/24/18 01/25/18 01/26/18 06:59 06:59 06:59 Intake Total 1230 1553 118 Output Total 800 Balance 430 1553 118 Weight 76.1 kg 81.1 kg General appearance: PRESENT: no acute distress, obese, well-developed, well- nourished Head exam: PRESENT: atraumatic, normocephalic Eye exam: PRESENT: conjunctiva pink, EOMI, PERRLA. ABSENT: scleral icterus Ear exam: PRESENT: normal external ear exam Mouth exam: PRESENT: moist, tongue midline Neck exam: ABSENT: carotid bruit, JVD, lymphadenopathy, thyromegaly Respiratory exam: PRESENT: clear to auscultation [place], symmetrical, unlabored. ABSENT: rales, rhonchi, wheezes Cardiovascular exam: PRESENT: RRR. ABSENT: diastolic murmur, rubs, systolic murmur Pulses: PRESENT: normal carotid pulses, normal radial pulses Vascular exam: PRESENT: normal capillary refill GI/Abdominal exam: PRESENT: normal bowel sounds, soft. ABSENT: distended, guarding, mass, organolmegaly, rebound, tenderness Rectal exam: PRESENT: deferred Extremities exam: PRESENT: full ROM. ABSENT: calf tenderness, clubbing, pedal edema Musculoskeletal exam: PRESENT: ambulatory, normal inspection, other - weakness of left lower extremity persists 4/5, left upper arm 5/5 Neurological exam: PRESENT: alert, awake, oriented to person, oriented to place , oriented to time, oriented to situation, CN II-XII grossly intact, motor sensory deficit - left lower leg weakness Psychiatric exam: PRESENT: appropriate affect, normal mood. ABSENT: homicidal ideation, suicidal ideation Skin exam: PRESENT: dry, intact, warm. ABSENT: cyanosis, rash Results Laboratory Results: 01/23/18 04:23 01/24/18 05:16 01/24/18 15:24 Magnesium 2.0 01/22/18 01/22/18 01/23/18 17:09 22:14 04:23 Troponin I < 0.012 0.012 0.016 01/24/18 01/24/18 01/25/18 15:24 21:37 03:15 Troponin I < 0.012 0.025 0.028 Impressions: Head MRI 01/22/18 00:00 IMPRESSION: No acute findings. Extensive chronic small vessel ischemic changes above EVIDENCE OF ACUTE STROKE: NO. Chest X-Ray 01/22/18 14:58 IMPRESSION: NO ACUTE RADIOGRAPHIC FINDING IN THE CHEST. Head CT 01/22/18 14:58 IMPRESSION: Chronic white matter disease. No acute findings. EVIDENCE OF ACUTE STROKE: NO. Carotid Doppler Study 01/23/18 00:00 IMPRESSION: Calcific plaque at the carotid bifurcations without flow significant stenosis of the proximal ICAs by velocity criteria Retrograde right vertebral artery flow unchanged from 2015, question subclavian steal Antegrade left vertebral artery flow Assessment & Plan - Diagnosis (1) Acute CVA (cerebrovascular accident) Is this a current diagnosis for this admission?: Yes Plan: MRI shows no new infarcts but left leg weakness persists (2) Anemia Qualifiers: Anemia type: due to chronic kidney disease Chronic kidney disease stage: on chronic dialysis Qualified Code(s): N18.6 - End stage renal disease; D63.1 - Anemia in chronic kidney disease; D63.1 - Anemia in chronic kidney disease; Z99.2 - Dependence on renal dialysis; Z99.2 - Dependence on renal dialysis; Z99.2 - Dependence on renal dialysis; Z99.2 - Dependence on renal dialysis Is this a current diagnosis for this admission?: Yes (3) Left leg weakness Is this a current diagnosis for this admission?: Yes (4) Atrial fibrillation with RVR Is this a current diagnosis for this admission?: Yes Plan: She converted to sinus rhythm last evening with IV amiodarone. Dr Alonso is following (5) NSVT (nonsustained ventricular tachycardia) Is this a current diagnosis for this admission?: Yes Plan: Resolved after IV lopressor. IV amiodarone. Wide complex tachycardia. Could have been afib with aberrant conduction Echo shows normal EF with grade 2/4 diastolic heart failure (6) End stage renal failure on dialysis Is this a current diagnosis for this admission?: Yes (7) History of CVA (cerebrovascular accident) Is this a current diagnosis for this admission?: Yes (8) Hyperlipidemia Qualifiers: Hyperlipidemia type: mixed hyperlipidemia Qualified Code(s): E78.2 - Mixed hyperlipidemia Is this a current diagnosis for this admission?: Yes Plan: Continue statin (9) Hypertension Qualifiers: Hypertension type: essential hypertension Qualified Code(s): I10 - Essential (primary) hypertension Is this a current diagnosis for this admission?: Yes Plan: She is normotensive on current medications (10) Hypothyroidism Qualifiers: Hypothyroidism type: acquired Qualified Code(s): E03.9 - Hypothyroidism, unspecified Is this a current diagnosis for this admission?: Yes Plan: continue synthroid - Time Time Spent with patient: 25-34 minutes Total Critical Time (Minutes): 20 Medications reviewed and adjusted accordingly: Yes
[2018-01-25] MEDS: AMIODARONE HCL 200 MG TABLET PO SCH (18:26)
[2018-01-25] MEDS: NORMAL SALINE 1000 ML 1,000 ML IV PRN (18:27)
[2018-01-25] MEDS ORDERED: POLYETHYLENE GLYCOL 3350 POWDER 17 GM/1 PACKET PO ONE (20:15)
[2018-01-25] MEDS: ROSUVASTATIN 10 MG PO SCH (21:05)
--- NOTE | 2018-01-25 22:54 | EKG REPORT ---
SEVERITY:- ABNORMAL ECG - SINUS RHYTHM NONSPECIFIC INTRAVENTRICULAR CONDUCTION DELAY MINIMAL ST DEPRESSION, ANTEROLATERAL LEADS : Confirmed by: Brittni Alonso 25-Jan-2018 22:54:08
[2018-01-26] MEDS ORDERED: NORMAL SALINE 1000 ML 1,000 ML IV PRN (05:00)
[2018-01-26] MEDS: LEVOTHYROXINE SODIUM 0.1 MG TABLET PO SCH (05:08)
[2018-01-26 07:12] LABS: ABSOLUTE BASOPHILS # (AUTO) 0.1 10^3/uL (0.0-0.2); ABSOLUTE EOSINOPHILS # (AUTO) 0.2 10^3/uL (0.0-0.6); ABSOLUTE MONOCYTES (AUTO) 0.5 10^3/uL (0.1-1.4); ABSOLUTE NEUT (AUTO) 3.9 10^3/uL (1.7-8.2); BASOPHILS % (AUTO) 1.1 % (0-2); EOSINOPHILS % (AUTO) 3.8 % (0-6); HEMATOCRIT 34.3 % (36.0-47.0); HEMOGLOBIN 11.8 g/dL (12.0-15.5); LYMPHOCYTES % (AUTO) 17.4 % (13-45); MEAN CORPUSCULAR HEMOGLOBIN 32.5 pg (27.0-33.4); MEAN CORPUSCULAR HGB CONC 34.3 g/dL (32.0-36.0); MEAN CORPUSCULAR VOLUME 95 fl (80-97); MONOCYTES % (AUTO) 8.9 % (3-13); PLATELET COUNT 250 10^3/uL (150-450); RED BLOOD COUNT 3.62 10^6/uL (3.72-5.28); RED CELL DISTRIBUTION WIDTH 14.5 % (11.5-14.0); SEGMENTED NEUTROPHILS % (AUTO) 68.8 % (42-78); TOTAL CELLS COUNTED % (AUTO) 100 %; WHITE BLOOD COUNT 5.7 10^3/uL (4.0-10.5)
[2018-01-26 07:39] LABS: ANION GAP 9 (5-19); BLOOD UREA NITROGEN 28 mg/dL (7-20); CALCIUM 9.2 mg/dL (8.4-10.2); CARBON DIOXIDE 20 mmol/L (22-30); CHLORIDE 114 mmol/L (98-107); GLUCOSE 112 mg/dL (75-110); POTASSIUM 4.2 mmol/L (3.6-5.0)
[2018-01-26] MEDS: AMIODARONE HCL 200 MG TABLET PO SCH ×2 (09:14→17:28)
[2018-01-26] MEDS: APIXABAN 5 MG TABLET PO SCH ×2 (09:14→17:28)
[2018-01-26] MEDS: FEBUXOSTAT 40 MG TABLET PO SCH (09:15)
[2018-01-26] MEDS ORDERED: AMIODARONE HCL INJ 150 MG/3 ML VIAL IV ONE (15:00)
[2018-01-26] MEDS ORDERED: AMIODARONE HCL 150 MG in DEXTROSE 5%-WATER 100 ML IV ONE (15:30)
--- NOTE | 2018-01-26 17:16 | PDOC PROGRESS REPORT ---
Subjective Progress Note for:: 01/26/18 Subjective:: Patient is seen resting in the bedside chair. She denies any chest pain, shortness of breath or dyspnea at rest. She has had some paroxymal during dialysis and after. She denies any nausea, vomiting or abdominal pain. She denies any diarrhea. She states her left arm weakness is almost back to normal. She continues to have weakness in the left leg however. She has been working with physical therapy this morning. She denies any significant arthralgias or myalgias. Remaining review of systems are negative. Reason For Visit: ACUTE CVA WITH LEFT SIDED WEAKNESS Physical Exam Vital Signs: Temp Pulse Resp BP Pulse Ox 98.4 F 102 H 20 109/65 99 01/26/18 15:17 01/26/18 15:17 01/26/18 15:17 01/26/18 15:17 01/26/18 15:17 Intake & Output 01/25/18 01/26/18 01/27/18 06:59 06:59 06:59 Intake Total 1553 1270 569 Output Total 1600 Balance 1553 1270 -1031 Weight 81.1 kg 82.8 kg General appearance: PRESENT: no acute distress, obese, well-developed, well- nourished Head exam: PRESENT: atraumatic, normocephalic Eye exam: PRESENT: conjunctiva pink, EOMI, PERRLA. ABSENT: scleral icterus Ear exam: PRESENT: normal external ear exam Mouth exam: PRESENT: moist, tongue midline Neck exam: ABSENT: carotid bruit, JVD, lymphadenopathy, thyromegaly Respiratory exam: PRESENT: clear to auscultation [place]. ABSENT: rales, rhonchi, wheezes Cardiovascular exam: PRESENT: irregular rhythm, systolic murmur - 2/6, tachycardia. ABSENT: diastolic murmur, rubs Pulses: PRESENT: normal carotid pulses, normal radial pulses Vascular exam: PRESENT: normal capillary refill GI/Abdominal exam: PRESENT: normal bowel sounds, soft. ABSENT: distended, guarding, mass, organolmegaly, rebound, tenderness Rectal exam: PRESENT: deferred Extremities exam: PRESENT: full ROM. ABSENT: calf tenderness, clubbing, pedal edema Musculoskeletal exam: PRESENT: ambulatory Neurological exam: PRESENT: alert, awake, oriented to person, oriented to place , oriented to time, oriented to situation, CN II-XII grossly intact. ABSENT: motor sensory deficit Psychiatric exam: PRESENT: appropriate affect, normal mood. ABSENT: homicidal ideation, suicidal ideation Skin exam: PRESENT: dry, intact, warm. ABSENT: cyanosis, rash Results Laboratory Results: 01/26/18 06:11 01/26/18 06:11 01/26/18 01/26/18 06:11 06:11 WBC 5.7 RBC 3.62 L Hgb 11.8 L Hct 34.3 L MCV 95 MCH 32.5 MCHC 34.3 RDW 14.5 H Plt Count 250 Seg Neutrophils % 68.8 Lymphocytes % 17.4 Monocytes % 8.9 Eosinophils % 3.8 Basophils % 1.1 Absolute Neutrophils 3.9 Absolute Lymphocytes 1.0 Absolute Monocytes 0.5 Absolute Eosinophils 0.2 Absolute Basophils 0.1 Sodium 143.0 Potassium 4.2 Chloride 114 H Carbon Dioxide 20 L Anion Gap 9 BUN 28 H Creatinine 3.01 H Est GFR ( Amer) 18 L Est GFR (Non-Af Amer) 15 L Glucose 112 H Calcium 9.2 01/22/18 01/22/18 01/23/18 17:09 22:14 04:23 Troponin I < 0.012 0.012 0.016 01/24/18 01/24/18 01/25/18 15:24 21:37 03:15 Troponin I < 0.012 0.025 0.028 Impressions: Head MRI 01/22/18 00:00 IMPRESSION: No acute findings. Extensive chronic small vessel ischemic changes above EVIDENCE OF ACUTE STROKE: NO. Chest X-Ray 01/22/18 14:58 IMPRESSION: NO ACUTE RADIOGRAPHIC FINDING IN THE CHEST. Head CT 01/22/18 14:58 IMPRESSION: Chronic white matter disease. No acute findings. EVIDENCE OF ACUTE STROKE: NO. Carotid Doppler Study 01/23/18 00:00 IMPRESSION: Calcific plaque at the carotid bifurcations without flow significant stenosis of the proximal ICAs by velocity criteria Retrograde right vertebral artery flow unchanged from 2015, question subclavian steal Antegrade left vertebral artery flow Assessment & Plan - Diagnosis (1) Acute CVA (cerebrovascular accident) Is this a current diagnosis for this admission?: Yes Plan: MRI shows no new infarcts but left leg weakness persists (2) Anemia Qualifiers: Anemia type: due to chronic kidney disease Chronic kidney disease stage: on chronic dialysis Qualified Code(s): N18.6 - End stage renal disease; D63.1 - Anemia in chronic kidney disease; D63.1 - Anemia in chronic kidney disease; Z99.2 - Dependence on renal dialysis; Z99.2 - Dependence on renal dialysis; Z99.2 - Dependence on renal dialysis; Z99.2 - Dependence on renal dialysis Is this a current diagnosis for this admission?: Yes (3) Left leg weakness Is this a current diagnosis for this admission?: Yes Plan: Somewhat improved (4) Atrial fibrillation with RVR Is this a current diagnosis for this admission?: Yes Plan: She had paroxymal atrial fibrillation during dialysis and after. Reloaded with amiodarone. She is on eliquis (5) NSVT (nonsustained ventricular tachycardia) Is this a current diagnosis for this admission?: Yes Plan: Resolved after IV lopressor. IV amiodarone. Wide complex tachycardia. Could have been afib with aberrant conduction Echo shows normal EF with grade 2/4 diastolic heart failure (6) End stage renal failure on dialysis Is this a current diagnosis for this admission?: Yes (7) History of CVA (cerebrovascular accident) Is this a current diagnosis for this admission?: Yes Plan: Left sided with minimal residual (8) Hyperlipidemia Qualifiers: Hyperlipidemia type: mixed hyperlipidemia Qualified Code(s): E78.2 - Mixed hyperlipidemia Is this a current diagnosis for this admission?: Yes Plan: Continue statin (9) Hypertension Qualifiers: Hypertension type: essential hypertension Qualified Code(s): I10 - Essential (primary) hypertension Is this a current diagnosis for this admission?: Yes Plan: She is normotensive on current medications (10) Hypothyroidism Qualifiers: Hypothyroidism type: acquired Qualified Code(s): E03.9 - Hypothyroidism, unspecified Is this a current diagnosis for this admission?: Yes Plan: continue synthroid - Time Time Spent with patient: 25-34 minutes Total Critical Time (Minutes): 20 Medications reviewed and adjusted accordingly: Yes Anticipated discharge: Acute Rehab
--- NOTE | 2018-01-26 20:09 | PDOC PROGRESS REPORT ---
Subjective Progress Note for:: 01/26/18 Subjective:: I saw the patient during dialysis at around 8:30 AM this morning. Reviewed incidence over the weekend. Patient developed atrial fibrillation with rapid ventricular response requiring cardiology consult. Lending Consultant, Dr. Alonso I started the patient on amiodarone and Eliquis in place of the Plavix that she was on. Yesterday the patient converted to normal sinus rhythm until now when I saw her. She said she still has a little bit of shortness of breath but denies any chest pains, nausea, vomiting, nor any other complaints. He is her left leg is better and she is able to move it a little bit better now than admission. Her left arm is also much better. Reason For Visit: ACUTE CVA WITH LEFT SIDED WEAKNESS Physical Exam Vital Signs: Temp Pulse Resp BP Pulse Ox 98.4 F 79 20 109/65 99 01/26/18 15:17 01/26/18 19:00 01/26/18 15:17 01/26/18 15:17 01/26/18 15:17 Intake & Output 01/25/18 01/26/18 01/27/18 06:59 06:59 06:59 Intake Total 1553 1270 1301 Output Total 1600 Balance 1553 1270 -299 Weight 81.1 kg 82.8 kg Vitals during dialysis: Blood pressure 165/92, heart rate of 72, blood flow rate of 6300 mL/min, dialysate flow rate of 600 mL/min. Exam: General appearance: PRESENT: no acute distress, cooperative, well-developed, well-nourished Head exam: PRESENT: atraumatic, normocephalic Eye exam: PRESENT: conjunctiva pink, PERRLA. ABSENT: scleral icterus Neck exam: ABSENT: JVD Respiratory exam: PRESENT: Diminished breath sounds. ABSENT: crackles, rales, rhonchi, unlabored, wheezes Cardiovascular exam: PRESENT: Regular rate rhythm -+S1, +S2. ABSENT: diastolic murmur, systolic murmur GI/Abdominal exam: PRESENT: normal bowel sounds, soft. ABSENT: guarding, mass, tenderness Extremities exam: ABSENT: No edema Neurological exam: PRESENT: alert, awake, oriented to person, place and time. Left upper extremity motor exam 3+/5, left lower extremity 2/5 Skin exam: PRESENT: dry, warm, Results Laboratory Results: 01/26/18 06:11 01/26/18 06:11 01/26/18 01/26/18 06:11 06:11 WBC 5.7 RBC 3.62 L Hgb 11.8 L Hct 34.3 L MCV 95 MCH 32.5 MCHC 34.3 RDW 14.5 H Plt Count 250 Seg Neutrophils % 68.8 Lymphocytes % 17.4 Monocytes % 8.9 Eosinophils % 3.8 Basophils % 1.1 Absolute Neutrophils 3.9 Absolute Lymphocytes 1.0 Absolute Monocytes 0.5 Absolute Eosinophils 0.2 Absolute Basophils 0.1 Sodium 143.0 Potassium 4.2 Chloride 114 H Carbon Dioxide 20 L Anion Gap 9 BUN 28 H Creatinine 3.01 H Est GFR ( Amer) 18 L Est GFR (Non-Af Amer) 15 L Glucose 112 H Calcium 9.2 01/22/18 01/22/18 01/23/18 17:09 22:14 04:23 Troponin I < 0.012 0.012 0.016 01/24/18 01/24/18 01/25/18 15:24 21:37 03:15 Troponin I < 0.012 0.025 0.028 Impressions: Head MRI 01/22/18 00:00 IMPRESSION: No acute findings. Extensive chronic small vessel ischemic changes above EVIDENCE OF ACUTE STROKE: NO. Chest X-Ray 01/22/18 14:58 IMPRESSION: NO ACUTE RADIOGRAPHIC FINDING IN THE CHEST. Head CT 01/22/18 14:58 IMPRESSION: Chronic white matter disease. No acute findings. EVIDENCE OF ACUTE STROKE: NO. Carotid Doppler Study 01/23/18 00:00 IMPRESSION: Calcific plaque at the carotid bifurcations without flow significant stenosis of the proximal ICAs by velocity criteria Retrograde right vertebral artery flow unchanged from 2015, question subclavian steal Antegrade left vertebral artery flow Assessment & Plan - Diagnosis (1) End stage renal failure on dialysis Is this a current diagnosis for this admission?: Yes Plan: We did dialysis today for 3 hours, using the patient's AV fistula, with 2 potassium bath, blood flow rate of 300 mL per minute, dialysate flow rate of 600 mL per minute, ultrafiltration 1-1.5 L as tolerated, no heparin and no Procrit. Patient tolerated dialysis without any complications she was monitored toward by our dialysis nurse about the treatment. Her next dialysis will be on Friday if she stays here in the hospital. (2) Acute CVA (cerebrovascular accident) Is this a current diagnosis for this admission?: Yes Plan: Clinically she is slightly better . (3) Atrial fibrillation with RVR Is this a current diagnosis for this admission?: Yes Plan: Converted to normal sinus rhythm. Managed by trust administrative assistant. (4) Coronary artery disease Qualifiers: Coronary Disease-Associated Artery/Lesion type: [place] artery [place] vs. transplanted heart: [place] heart Associated angina: without angina Qualified Code(s): I25.10 - Atherosclerotic heart disease of [place] coronary artery without angina pectoris Is this a current diagnosis for this admission?: Yes (5) HTN (hypertension) Is this a current diagnosis for this admission?: Yes - Time Time with patient: 15-25 minutes
--- NOTE | 2018-01-26 20:27 | PDOC PROGRESS REPORT ---
Subjective Progress Note for:: 01/26/18 Subjective:: Patient seen on dialysis. She was noted to be in intermittent atrial fibrillation. Orders were given for additional amiodarone IV 150 mg over 30 minutes. Patient seems to be doing better with gradual improvement. Pt is denying any chest arm or neck discomfort. Patient denying any PND, orthopnea. Patient denied any sustained palpitations, dizziness, syncope, near syncope. Patient denying any fever chills. Patient denying any other significant discomfort. Patient is patient converted to sinus rhythm from atrial fibrillation. Currently maintaining sinus rhythm, however today noted to have intermittent atrial fibrillation. Review of systems: Rest review of systems negative. Medications: Medications have been reviewed. Reason For Visit: ACUTE CVA WITH LEFT SIDED WEAKNESS Physical Exam Vital Signs: Temp Pulse Resp BP Pulse Ox 98.4 F 79 20 109/65 99 01/26/18 15:17 01/26/18 19:00 01/26/18 15:17 01/26/18 15:17 01/26/18 15:17 Intake & Output 01/25/18 01/26/18 01/27/18 06:59 06:59 06:59 Intake Total 1553 1270 1301 Output Total 1600 Balance 1553 1270 -299 Weight 81.1 kg 82.8 kg Exam: GENERAL: well-nourished and in no acute distress. Alert and oriented x3 HEAD: Atraumatic, normocephalic. EYES: Pupils equal round and reactive to light, extraocular movements intact, sclera anicteric, conjunctiva are normal. ENT: TMs normal, nares patent, oropharynx clear without exudates. Moist mucous membranes. No oral ulcerations or bleeding gums noted NECK: supple without lymphadenopathy. Trachea is central. No cervical or axillary lymphadenopathy noted. Carotids are 2+, JVD WNL LUNGS: Respiration seems nonlabored, no significant accessory muscle action noted. Breath sounds clear to auscultation bilaterally and equal noted. No wheezes rales or rhonchi noted. No significant dullness noted on percussion. CHEST: Palpation of the chest wall shows no significant chest wall tenderness. 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 ABDOMEN: Soft, no significant tenderness appreciated, normoactive bowel sounds. No guarding, no rebound. No rigidity noted . No masses appreciated. EXTREMITIES: Pedal pulses are 1-2+, no calf tenderness noted. No clubbing or cyanosis. negative pedal edema noted NEUROLOGICAL: Focused neurological exam showed no significant neurologic deficit. Normal speech, no focal weakness appreciated. PSYCH: Normal mood, normal affect. Judgment and insight within normal limits. SKIN: No significant ecchymosis, skin is noted to be warm. MUSCULOSKELETAL EXAM: No significant acute joint swelling noted. Results Laboratory Results: 01/26/18 06:11 01/26/18 06:11 01/26/18 01/26/18 06:11 06:11 WBC 5.7 RBC 3.62 L Hgb 11.8 L Hct 34.3 L MCV 95 MCH 32.5 MCHC 34.3 RDW 14.5 H Plt Count 250 Seg Neutrophils % 68.8 Lymphocytes % 17.4 Monocytes % 8.9 Eosinophils % 3.8 Basophils % 1.1 Absolute Neutrophils 3.9 Absolute Lymphocytes 1.0 Absolute Monocytes 0.5 Absolute Eosinophils 0.2 Absolute Basophils 0.1 Sodium 143.0 Potassium 4.2 Chloride 114 H Carbon Dioxide 20 L Anion Gap 9 BUN 28 H Creatinine 3.01 H Est GFR ( Amer) 18 L Est GFR (Non-Af Amer) 15 L Glucose 112 H Calcium 9.2 01/22/18 01/22/18 01/23/18 17:09 22:14 04:23 Troponin I < 0.012 0.012 0.016 01/24/18 01/24/18 01/25/18 15:24 21:37 03:15 Troponin I < 0.012 0.025 0.028 EKG Comments: Predominantly sinus rhythm with intermittent atrial fibrillation Impressions: Head MRI 01/22/18 00:00 IMPRESSION: No acute findings. Extensive chronic small vessel ischemic changes above EVIDENCE OF ACUTE STROKE: NO. Chest X-Ray 01/22/18 14:58 IMPRESSION: NO ACUTE RADIOGRAPHIC FINDING IN THE CHEST. Head CT 01/22/18 14:58 IMPRESSION: Chronic white matter disease. No acute findings. EVIDENCE OF ACUTE STROKE: NO. Carotid Doppler Study 01/23/18 00:00 IMPRESSION: Calcific plaque at the carotid bifurcations without flow significant stenosis of the proximal ICAs by velocity criteria Retrograde right vertebral artery flow unchanged from 2014, question subclavian steal Antegrade left vertebral artery flow Assessment & Plan - Diagnosis (1) Atrial fibrillation with RVR Is this a current diagnosis for this admission?: Yes (2) NSVT (nonsustained ventricular tachycardia) Is this a current diagnosis for this admission?: Yes (3) Acute CVA (cerebrovascular accident) Is this a current diagnosis for this admission?: Yes (4) COPD (chronic obstructive pulmonary disease) Qualifiers: COPD type: unspecified COPD Qualified Code(s): J44.9 - Chronic obstructive pulmonary disease, unspecified Is this a current diagnosis for this admission?: Yes (5) Coronary artery disease Qualifiers: Coronary Disease-Associated Artery/Lesion type: [place] artery [place] vs. transplanted heart: [place] heart Associated angina: without angina Qualified Code(s): I25.10 - Atherosclerotic heart disease of [place] coronary artery without angina pectoris Is this a current diagnosis for this admission?: Yes (7) Hyperlipidemia Qualifiers: Hyperlipidemia type: mixed hyperlipidemia Qualified Code(s): E78.2 - Mixed hyperlipidemia Is this a current diagnosis for this admission?: Yes (8) Hypertension Qualifiers: Hypertension type: essential hypertension Qualified Code(s): I10 - Essential (primary) hypertension Is this a current diagnosis for this admission?: Yes - Notes Notes: Additional bolus of amiodarone 150 mg IV given with 30 minutes or was actually ordered. Other recommendations remain the same. - Time Time with patient: 15-25 minutes - CODE STATUS was discussed, patient remains full code. Surrogate decision-maker unchanged. Multiple medical problems were addressed. More than 50% of the time spent coordinating care, discussing management plans with involved caregivers. Management plans discussed with involved personnels. Medical decision making was of moderate to high complexity , patient's has multiple comorbidities. Medications reviewed and adjusted accordingly: Yes
[2018-01-26] MEDS: ROSUVASTATIN 10 MG PO SCH (21:44)
[2018-01-27] MEDS: LEVOTHYROXINE SODIUM 0.1 MG TABLET PO SCH (05:07)
[2018-01-27 06:06] LABS: ANION GAP 10 (5-19); BLOOD UREA NITROGEN 26 mg/dL (7-20); CALCIUM 8.8 mg/dL (8.4-10.2); CARBON DIOXIDE 28 mmol/L (22-30); CHLORIDE 103 mmol/L (98-107); GLUCOSE 93 mg/dL (75-110); POTASSIUM 3.8 mmol/L (3.6-5.0)
[2018-01-27] MEDS: AMIODARONE HCL 200 MG TABLET PO SCH ×2 (08:05→17:42)
[2018-01-27] MEDS: FEBUXOSTAT 40 MG TABLET PO SCH (09:02)
[2018-01-27] MEDS: APIXABAN 5 MG TABLET PO SCH ×2 (09:02→17:42)
--- NOTE | 2018-01-27 17:42 | PDOC PROGRESS REPORT ---
Subjective Progress Note for:: 01/27/18 Subjective:: Patient appears to be comfortable laying in bed. She does seem a little bit confused but otherwise denies any other complaints. Reason For Visit: ACUTE CVA WITH LEFT SIDED WEAKNESS Physical Exam Vital Signs: Temp Pulse Resp BP Pulse Ox 98.3 F 73 20 128/73 H 99 01/27/18 16:01 01/27/18 16:01 01/27/18 16:01 01/27/18 16:01 01/27/18 16:01 Intake & Output 01/26/18 01/27/18 01/28/18 06:59 06:59 06:59 Intake Total 1270 1601 248 Output Total 1600 Balance 1270 1 248 Weight 82.8 kg 81.5 kg General appearance: PRESENT: no acute distress, well-developed, well-nourished Head exam: PRESENT: atraumatic, normocephalic Eye exam: PRESENT: conjunctiva pink, EOMI, PERRLA. ABSENT: scleral icterus Ear exam: PRESENT: normal external ear exam Mouth exam: PRESENT: moist, tongue midline Neck exam: ABSENT: carotid bruit, JVD, lymphadenopathy, thyromegaly Respiratory exam: PRESENT: clear to auscultation [place]. ABSENT: rales, rhonchi, wheezes Cardiovascular exam: PRESENT: RRR. ABSENT: diastolic murmur, rubs, systolic murmur Pulses: PRESENT: normal dorsalis pedis pul Vascular exam: PRESENT: normal capillary refill GI/Abdominal exam: PRESENT: normal bowel sounds, soft. ABSENT: distended, guarding, mass, organolmegaly, rebound, tenderness Rectal exam: PRESENT: deferred Extremities exam: PRESENT: full ROM. ABSENT: calf tenderness, clubbing, pedal edema Neurological exam: PRESENT: alert Psychiatric exam: ABSENT: homicidal ideation, suicidal ideation Skin exam: PRESENT: dry, intact, warm. ABSENT: cyanosis, rash Results Laboratory Results: 01/26/18 06:11 01/27/18 05:20 01/27/18 05:20 Sodium 141.0 Potassium 3.8 Chloride 103 Carbon Dioxide 28 Anion Gap 10 BUN 26 H Creatinine 2.91 H Est GFR ( Amer) 19 L Est GFR (Non-Af Amer) 16 L Glucose 93 Calcium 8.8 01/22/18 01/22/18 01/23/18 17:09 22:14 04:23 Troponin I < 0.012 0.012 0.016 01/24/18 01/24/18 01/25/18 15:24 21:37 03:15 Troponin I < 0.012 0.025 0.028 Impressions: Head MRI 01/22/18 00:00 IMPRESSION: No acute findings. Extensive chronic small vessel ischemic changes above EVIDENCE OF ACUTE STROKE: NO. Chest X-Ray 01/22/18 14:58 IMPRESSION: NO ACUTE RADIOGRAPHIC FINDING IN THE CHEST. Head CT 01/22/18 14:58 IMPRESSION: Chronic white matter disease. No acute findings. EVIDENCE OF ACUTE STROKE: NO. Carotid Doppler Study 01/23/18 00:00 IMPRESSION: Calcific plaque at the carotid bifurcations without flow significant stenosis of the proximal ICAs by velocity criteria Retrograde right vertebral artery flow unchanged from 2015, question subclavian steal Antegrade left vertebral artery flow Assessment & Plan - Time Time Spent with patient: 15-24 minutes Medications reviewed and adjusted accordingly: Yes Anticipated discharge: Acute Rehab Within: within 48 hours - Inpatient Certification Based on my medical assessment, after consideration of the patient's comorbidities, presenting symptoms, or acuity I expect that the services needed warrant INPATIENT care.: Yes Medical Necessity: Risk of Complication if Not Cared For in Hospital - Plan Summary Plan Summary: Acute cerebrovascular accident although MRI shows no new infections. Left leg weakness persistent she is currently receiving physical therapy. 2. Anemia of chronic disease, patient has end-stage renal disease on dialysis 3. Left leg weakness 4. Paroxysmal atrial fibrillation treated with amiodarone she is currently on Eliquis 5. Nonsustained ventricular tachycardia which was also treated with Lopressor as well as amiodarone. Echo shows normal EF with grade 2/4 diastolic heart failure 6. End-stage renal disease on dialysis 7. Dyslipidemia 8. Hypothyroidism currently on Synthroid #9 hypertension
[2018-01-27] MEDS: SENNOSIDES/DOCUSATE 8.6-50 MG 1 EACH TABLET PO SCH (18:36)
[2018-01-27] MEDS ORDERED: ASPIRIN 81 MG TABLET, CHEWABLE PO SCH (19:00)
--- NOTE | 2018-01-27 19:11 | PDOC PROGRESS REPORT ---
Subjective Progress Note for:: 01/27/18 Subjective:: Patient seems to be doing better with gradual improvement. Pt is denying any chest arm or neck discomfort. Patient denying any PND, orthopnea. Patient denied any sustained palpitations, dizziness, syncope, near syncope. Patient denying any fever chills. Patient denying any other significant discomfort. Patient is patient converted to sinus rhythm from atrial fibrillation. Currently maintaining sinus rhythm Review of systems: Rest review of systems negative. Medications: Medications have been reviewed. Reason For Visit: ACUTE CVA WITH LEFT SIDED WEAKNESS Physical Exam Vital Signs: Temp Pulse Resp BP Pulse Ox 98.3 F 73 20 128/73 H 99 01/27/18 16:01 01/27/18 16:01 01/27/18 16:01 01/27/18 16:01 01/27/18 16:01 Intake & Output 01/26/18 01/27/18 01/28/18 06:59 06:59 06:59 Intake Total 1270 1601 368 Output Total 1600 Balance 1270 1 368 Weight 82.8 kg 81.5 kg Exam: GENERAL: well-nourished and in no acute distress. Alert and oriented x3 HEAD: Atraumatic, normocephalic. EYES: Pupils equal round and reactive to light, extraocular movements intact, sclera anicteric, conjunctiva are normal. ENT: TMs normal, nares patent, oropharynx clear without exudates. Moist mucous membranes. No oral ulcerations or bleeding gums noted NECK: supple without lymphadenopathy. Trachea is central. No cervical or axillary lymphadenopathy noted. Carotids are 2+, JVD WNL LUNGS: Respiration seems nonlabored, no significant accessory muscle action noted. Breath sounds clear to auscultation bilaterally and equal noted. No wheezes rales or rhonchi noted. No significant dullness noted on percussion. CHEST: Palpation of the chest wall shows no significant chest wall tenderness. 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 ABDOMEN: Soft, no significant tenderness appreciated, normoactive bowel sounds. No guarding, no rebound. No rigidity noted . No masses appreciated. EXTREMITIES: Pedal pulses are 1-2+, no calf tenderness noted. No clubbing or cyanosis. negative pedal edema noted NEUROLOGICAL: Focused neurological exam showed no significant neurologic deficit. Normal speech, no focal weakness appreciated. PSYCH: Normal mood, normal affect. Judgment and insight within normal limits. SKIN: No significant ecchymosis, skin is noted to be warm. MUSCULOSKELETAL EXAM: No significant acute joint swelling noted. Results Laboratory Results: 01/26/18 06:11 01/27/18 05:20 01/27/18 05:20 Sodium 141.0 Potassium 3.8 Chloride 103 Carbon Dioxide 28 Anion Gap 10 BUN 26 H Creatinine 2.91 H Est GFR ( Amer) 19 L Est GFR (Non-Af Amer) 16 L Glucose 93 Calcium 8.8 01/22/18 01/22/18 01/23/18 17:09 22:14 04:23 Troponin I < 0.012 0.012 0.016 01/24/18 01/24/18 01/25/18 15:24 21:37 03:15 Troponin I < 0.012 0.025 0.028 EKG Comments: Telemetry strips shows sinus rhythm without any sustained tachycardia or bradycardia Impressions: Head MRI 01/22/18 00:00 IMPRESSION: No acute findings. Extensive chronic small vessel ischemic changes above EVIDENCE OF ACUTE STROKE: NO. Chest X-Ray 01/22/18 14:58 IMPRESSION: NO ACUTE RADIOGRAPHIC FINDING IN THE CHEST. Head CT 01/22/18 14:58 IMPRESSION: Chronic white matter disease. No acute findings. EVIDENCE OF ACUTE STROKE: NO. Carotid Doppler Study 01/23/18 00:00 IMPRESSION: Calcific plaque at the carotid bifurcations without flow significant stenosis of the proximal ICAs by velocity criteria Retrograde right vertebral artery flow unchanged from 2015, question subclavian steal Antegrade left vertebral artery flow Assessment & Plan - Diagnosis (1) Atrial fibrillation with RVR Is this a current diagnosis for this admission?: Yes (2) NSVT (nonsustained ventricular tachycardia) Is this a current diagnosis for this admission?: Yes (3) Acute CVA (cerebrovascular accident) Is this a current diagnosis for this admission?: Yes (4) COPD (chronic obstructive pulmonary disease) Qualifiers: COPD type: unspecified COPD Qualified Code(s): J44.9 - Chronic obstructive pulmonary disease, unspecified Is this a current diagnosis for this admission?: Yes (5) Coronary artery disease Qualifiers: Coronary Disease-Associated Artery/Lesion type: [place] artery [place] vs. transplanted heart: [place] heart Associated angina: without angina Qualified Code(s): I25.10 - Atherosclerotic heart disease of [place] coronary artery without angina pectoris Is this a current diagnosis for this admission?: Yes (7) Hyperlipidemia Qualifiers: Hyperlipidemia type: mixed hyperlipidemia Qualified Code(s): E78.2 - Mixed hyperlipidemia Is this a current diagnosis for this admission?: Yes (8) Hypertension Qualifiers: Hypertension type: essential hypertension Qualified Code(s): I10 - Essential (primary) hypertension Is this a current diagnosis for this admission?: Yes - Notes Notes: Atrial fibrillation with rapid ventricular response: Currently in sinus rhythm. Intermittent short duration atrial fibrillation noted yesterday for which patient got IV amiodarone 150 mg bolus. Patient has been placed on Eliquis. Continue patient on p.o. amiodarone at 200 mg p.o. twice daily. Plan on giving it to her at least for 1 month if not longer. Patient has history of prior cerebrovascular accident. It is quite likely that this could be the cause of patient's CVA. Patient has history of hypertension and has been on Midodrin Nonsustained ventricular tachycardia: Difficult to be sure whether it is just aberrant conduction or VT. Feel that amiodarone will be well used in this situation. Acute cerebrovascular accident: Recommend chronic anticoagulation. COPD: Currently stable End-stage renal disease: Patient on dialysis treatment and is being followed by r[facility]. Dyslipidemia: Continue current management plans with Darrell. Hypertension: Blood pressure under reasonable control. Patient has history of intermittent hypotension. - Time Time with patient: Greater than 35 minutes - CODE STATUS was discussed, patient remains full code. Surrogate decision-maker unchanged. Multiple medical problems were addressed. More than 50% of the time spent coordinating care, discussing management plans with involved caregivers. Management plans discussed with involved personnels. Medical decision making was of moderate to high complexity, patient's has multiple comorbidities. Medications reviewed and adjusted accordingly: Yes
[2018-01-27] MEDS: ROSUVASTATIN 10 MG PO SCH (21:18)
[2018-01-28] MEDS: LEVOTHYROXINE SODIUM 0.1 MG TABLET PO SCH (05:47)
[2018-01-28] MEDS: AMIODARONE HCL 200 MG TABLET PO SCH (08:37)
[2018-01-28] MEDS: FEBUXOSTAT 40 MG TABLET PO SCH (09:32)
[2018-01-28] MEDS: SENNOSIDES/DOCUSATE 8.6-50 MG 1 EACH TABLET PO SCH (09:32)
[2018-01-28] MEDS: APIXABAN 5 MG TABLET PO SCH (09:32)
--- NOTE | 2018-01-28 12:17 | PDOC DISCHARGE SUMMARY ---
General - Admit/Disc Date/PCP Admission Date/Primary Care Provider: 01/22/18 16:37 GIANNA BOURGEOIS MD Discharge Date: 01/28/18 - Discharge Diagnosis (1) Acute CVA (cerebrovascular accident) Is this a current diagnosis for this admission?: Yes (2) Atrial fibrillation with RVR Is this a current diagnosis for this admission?: Yes (3) NSVT (nonsustained ventricular tachycardia) Is this a current diagnosis for this admission?: Yes (4) Coronary artery disease Is this a current diagnosis for this admission?: Yes (5) End stage renal disease Is this a current diagnosis for this admission?: Yes (6) HTN (hypertension) Is this a current diagnosis for this admission?: Yes (7) Hypothyroidism Is this a current diagnosis for this admission?: Yes - Additional Information Resuscitation Status: Full Code Home Medications: Calcium Acetate [Phoslo 667 mg Capsule] 667 mg PO MEALS 01/22/18 Febuxostat [Uloric 40 mg Tablet] 40 mg PO DAILY 01/22/18 Levothyroxine Sodium [Synthroid 0.1 mg Tablet] 0.1 mg PO Q6AM 01/22/18 Midodrine HCl [Proamatine 5 mg Tablet] 5 mg PO TID 01/22/18 Rosuvastatin Calcium [Crestor 10 mg Tablet] 10 mg PO QHS 01/22/18 Amiodarone HCl [Cordarone 200 mg Tablet] 200 mg PO BIDBS #0 tablet 01/28/18 Apixaban [Eliquis 5 mg Tablet] 5 mg PO BID tablet 01/28/18 Aspirin [Aspirin 81 mg Chewable Tablet] 81 mg PO DAILY@1900 tab.chew 01/28/18 History of Present Illness Patient complains of: Patient was admitted with left-sided weakness and thought to have a CVA although MRI showed no evidence of acute stroke. Patient states with some left-sided weakness History of Present Illness: EZRA SUERO is a 77 year old female who went for her regular dialysis appointment today. During dialysis the patient had an episode of diarrhea. When she returned to her chair she stated that she didn't feel well and wanted to cut her session short. When she got up to leave she was unable to use her left arm or left leg. She was brought to the ED. Hospital Course Hospital Course: Patient was admitted with left-sided weakness and thought to have a CVA although MRI showed no evidence of acute stroke. Patient states with some left- sided weakness. She also had episodes of paroxysmal atrial fibrillation with a rapid ventricular response and was evaluated by cardiology, Dr. Alonso. Please see his consultation note for full details she was treated with amiodarone IV and has been started on p.o. amiodarone. She is also on Eliquis and this should be continued indefinitely. It is thought that her atrial fibrillation is likely contributing factor to her CVA. Patient was also found to have some intermittent runs of wide-complex tachycardia on telemetry which may be aberrant conduction or ventricular tachycardia. Carotid Doppler studies shows calcific plaque at the carotid bifurcation without significant stenosis. Low-dose aspirin at 81 mg daily was added to Eliquis. Echocardiogram revealed a normal ejection fraction and inferolateral and inferior wall hypokinesis with no valvular abnormalities Patient also received dialysis while in hospital and she is to continue with twice weekly dialysis schedule. She has been evaluated by physical therapy and at this time patient will benefit from an inpatient rehab so she is been discharged for acute rehab. Amiodarone is to be continued for at least 4 weeks and this should be reevaluated by traffic expert as outpatient for the dose adjustment or continuation as medically indicated. Physical Exam Vital Signs: Temp Pulse Resp BP Pulse Ox 97.2 F 71 20 126/53 H 97 01/28/18 07:31 01/28/18 07:31 01/28/18 07:31 01/28/18 07:31 01/28/18 07:31 Intake & Output 01/27/18 01/28/18 01/29/18 06:59 06:59 06:59 Intake Total 1601 613 Output Total 1600 Balance 1 613 Weight 81.5 kg 80.7 kg General appearance: PRESENT: no acute distress, well-developed, well-nourished Head exam: PRESENT: atraumatic Eye exam: PRESENT: conjunctiva pink, EOMI, PERRLA. ABSENT: scleral icterus Mouth exam: PRESENT: moist, tongue midline Neck exam: ABSENT: carotid bruit, JVD, lymphadenopathy, thyromegaly Respiratory exam: PRESENT: clear to auscultation [place]. ABSENT: rales, rhonchi, wheezes Cardiovascular exam: PRESENT: RRR, +S1, +S2. ABSENT: systolic murmur Pulses: PRESENT: normal dorsalis pedis pul GI/Abdominal exam: PRESENT: normal bowel sounds, soft. ABSENT: distended, guarding, mass, organolmegaly, rebound, tenderness Rectal exam: PRESENT: deferred Extremities exam: PRESENT: full ROM. ABSENT: calf tenderness, clubbing, pedal edema Musculoskeletal exam: PRESENT: other - weakness Left UE 4/5 Neurological exam: PRESENT: alert, awake, oriented to person, oriented to place , oriented to time, oriented to situation, motor sensory deficit - weakness LLE 4/5 Psychiatric exam: PRESENT: appropriate affect, normal mood Results Laboratory Results: 01/26/18 06:11 01/27/18 05:20 01/22/18 01/22/18 01/23/18 17:09 22:14 04:23 Troponin I < 0.012 0.012 0.016 01/24/18 01/24/18 01/25/18 15:24 21:37 03:15 Troponin I < 0.012 0.025 0.028 Impressions: Head MRI 01/22/18 00:00 IMPRESSION: No acute findings. Extensive chronic small vessel ischemic changes above EVIDENCE OF ACUTE STROKE: NO. Chest X-Ray 01/22/18 14:58 IMPRESSION: NO ACUTE RADIOGRAPHIC FINDING IN THE CHEST. Head CT 01/22/18 14:58 IMPRESSION: Chronic white matter disease. No acute findings. EVIDENCE OF ACUTE STROKE: NO. Carotid Doppler Study 01/23/18 00:00 IMPRESSION: Calcific plaque at the carotid bifurcations without flow significant stenosis of the proximal ICAs by velocity criteria Retrograde right vertebral artery flow unchanged from 2014, question subclavian steal Antegrade left vertebral artery flow Qualifiers - * PATIENT BEING DISCHARGED WITH ANY OF THE FOLLOWING DIAGNOSIS: Stroke Stroke Pt being discharged on Anti-thrombolytic therapy?: Yes Stroke Pt being discharged on Anti-coagulation therapy?: Yes Stroke Pt being discharged on Statins?: Yes Plan Time Spent: Greater than 30 Minutes
[2018-01-28 12:26] VITALS: BP 144/77
--- NOTE | 2018-01-28 19:21 | PDOC PROGRESS REPORT ---
Subjective Progress Note for:: 01/28/18 Subjective:: Patient seems to be doing. Patient is noted to be maintaining sinus rhythm. Pt is denying any chest arm or neck discomfort. Patient denying any PND, orthopnea. Patient denied any sustained palpitations, dizziness, syncope, near syncope. Patient denying any fever chills. Patient denying any other significant discomfort. Patient had atrial fibrillation this admission and converted with IV amiodarone. Currently maintaining sinus rhythm Review of systems: Rest review of systems negative. Medications: Medications have been reviewed. Reason For Visit: ACUTE CVA WITH LEFT SIDED WEAKNESS Physical Exam Vital Signs: Temp Pulse Resp BP Pulse Ox 97.7 F 74 24 H 144/77 H 93 01/28/18 12:19 01/28/18 12:19 01/28/18 12:19 01/28/18 12:19 01/28/18 12:19 Intake & Output 01/27/18 01/28/18 01/29/18 06:59 06:59 06:59 Intake Total 1601 613 354 Output Total 1600 Balance 1 613 354 Weight 81.5 kg 80.7 kg Exam: GENERAL: well-nourished and in no acute distress. Alert and oriented x3 HEAD: Atraumatic, normocephalic. EYES: Pupils equal round and reactive to light, extraocular movements intact, sclera anicteric, conjunctiva are normal. ENT: TMs normal, nares patent, oropharynx clear without exudates. Moist mucous membranes. No oral ulcerations or bleeding gums noted NECK: supple without lymphadenopathy. Trachea is central. No cervical or axillary lymphadenopathy noted. Carotids are 2+, JVD WNL LUNGS: Respiration seems nonlabored, no significant accessory muscle action noted. Breath sounds clear to auscultation bilaterally and equal noted. No wheezes rales or rhonchi noted. No significant dullness noted on percussion. CHEST: Palpation of the chest wall shows no significant chest wall tenderness. 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 ABDOMEN: Soft, no significant tenderness appreciated, normoactive bowel sounds. No guarding, no rebound. No rigidity noted . No masses appreciated. EXTREMITIES: Pedal pulses are 1-2+, no calf tenderness noted. No clubbing or cyanosis. negative pedal edema noted. Fistula, AV noted left forearm NEUROLOGICAL: Focused neurological exam showed no significant neurologic deficit. Normal speech, no focal weakness appreciated. PSYCH: Normal mood, normal affect. Judgment and insight within normal limits. SKIN: No significant ecchymosis, skin is noted to be warm. MUSCULOSKELETAL EXAM: No significant acute joint swelling noted. Results Laboratory Results: 01/26/18 06:11 01/27/18 05:20 01/22/18 01/22/18 01/23/18 17:09 22:14 04:23 Troponin I < 0.012 0.012 0.016 01/24/18 01/24/18 01/25/18 15:24 21:37 03:15 Troponin I < 0.012 0.025 0.028 EKG Comments: Telemetry strips shows sinus rhythm. No sustained tachycardia or bradycardia noted. Impressions: Head MRI 01/22/18 00:00 IMPRESSION: No acute findings. Extensive chronic small vessel ischemic changes above EVIDENCE OF ACUTE STROKE: NO. Chest X-Ray 01/22/18 14:58 IMPRESSION: NO ACUTE RADIOGRAPHIC FINDING IN THE CHEST. Head CT 01/22/18 14:58 IMPRESSION: Chronic white matter disease. No acute findings. EVIDENCE OF ACUTE STROKE: NO. Carotid Doppler Study 01/23/18 00:00 IMPRESSION: Calcific plaque at the carotid bifurcations without flow significant stenosis of the proximal ICAs by velocity criteria Retrograde right vertebral artery flow unchanged from 2015, question subclavian steal Antegrade left vertebral artery flow Assessment & Plan - Diagnosis (1) Atrial fibrillation with RVR Is this a current diagnosis for this admission?: Yes (2) NSVT (nonsustained ventricular tachycardia) Is this a current diagnosis for this admission?: Yes (3) Acute CVA (cerebrovascular accident) Is this a current diagnosis for this admission?: Yes (4) COPD (chronic obstructive pulmonary disease) Qualifiers: COPD type: unspecified COPD Qualified Code(s): J44.9 - Chronic obstructive pulmonary disease, unspecified Is this a current diagnosis for this admission?: Yes (5) Coronary artery disease Qualifiers: Coronary Disease-Associated Artery/Lesion type: [place] artery [place] vs. transplanted heart: [place] heart Associated angina: without angina Qualified Code(s): I25.10 - Atherosclerotic heart disease of [place] coronary artery without angina pectoris Is this a current diagnosis for this admission?: Yes (6) End stage renal disease Is this a current diagnosis for this admission?: Yes (7) Hyperlipidemia Qualifiers: Hyperlipidemia type: mixed hyperlipidemia Qualified Code(s): E78.2 - Mixed hyperlipidemia Is this a current diagnosis for this admission?: Yes (8) Hypertension Qualifiers: Hypertension type: essential hypertension Qualified Code(s): I10 - Essential (primary) hypertension Is this a current diagnosis for this admission?: Yes - Notes Notes: Atrial fibrillation with rapid ventricular response: Currently in sinus rhythm. Continue patient on p.o. amiodarone at 200 mg p.o. twice daily. Plan on giving it to her at least for 1 month if not longer. Patient has history of prior cerebrovascular accident. It is quite likely that this could be the cause of patient's CVA. Patient has history of hypertension and has been on Midodrin. Nonsustained ventricular tachycardia: Difficult to be sure whether it is just aberrant conduction or VT. Feel that amiodarone will be well used in this situation. Acute cerebrovascular accident: Recommend chronic anticoagulation. COPD: Currently stable End-stage renal disease: Patient on dialysis treatment and is being followed by wringer and setter. Dyslipidemia: Continue current management plans with Crestor. Hypertension: Blood pressure under reasonable control. Patient has history of intermittent hypotension. Review of medication suggest that patient has also been on baby aspirin, Plavix and now Eliquis. At this point after discussion with hospitalist, we decided to discontinue Plavix. Do not feed aspirin needs to be continued as her stent placement was many years ago. However it may be worthwhile just to continue it and follow patient very closely. Patient can follow-up with me if you wishes. - Time Time with patient: Greater than 35 minutes - CODE STATUS was discussed, patient remains full code. Surrogate decision-maker unchanged. Multiple medical problems were addressed. More than 50% of the time spent coordinating care, discussing management plans with involved caregivers. Management plans discussed with involved personnels. Medical decision making was of moderate to high complexity, patient's has multiple comorbidities. Medications reviewed and adjusted accordingly: Yes
== END 2018-01-28 15:29 | DRG 64 ==
LOC: ER 14:29 → OBSVTOIN 16:13 → EH 16:13 → UNDOADMOB 16:13 → INTOOBSV 16:13 → OBSVTOIN 16:37 → EH 16:37 → 3S 17:44
PROVIDERS: ADMIT Internal Medicine; ATTEND Internal Medicine
PROC: 5A1D70Z Performance of Urinary Filtration, Intermittent, Less than 6 Hours Per Day (ICD-10-PCS; principal; 2018-01-23)
PROC: 5A1D70Z Performance of Urinary Filtration, Intermittent, Less than 6 Hours Per Day (ICD-10-PCS; 2018-01-26)
DX: I63.9 Cerebral infarction, unspecified (principal); N18.6 End stage renal disease; I12.0 Hypertensive chronic kidney disease with stage 5 chronic kidney disease or end stage renal disease; G81.94 Hemiplegia, unspecified affecting left nondominant side; I47.2 Ventricular tachycardia; E87.2 Acidosis; I25.10 Atherosclerotic heart disease of native coronary artery without angina pectoris; I48.0 Paroxysmal atrial fibrillation; E03.9 Hypothyroidism, unspecified; E78.2 Mixed hyperlipidemia; J44.9 Chronic obstructive pulmonary disease, unspecified; G47.30 Sleep apnea, unspecified; E21.3 Hyperparathyroidism, unspecified; E83.39 Other disorders of phosphorus metabolism; D63.1 Anemia in chronic kidney disease; R40.2432 Glasgow coma scale score 3-8, at arrival to emergency department; I25.2 Old myocardial infarction; Z99.2 Dependence on renal dialysis; Z79.899 Other long term (current) drug therapy; Z90.49 Acquired absence of other specified parts of digestive tract; Z95.5 Presence of coronary angioplasty implant and graft; Z87.891 Personal history of nicotine dependence; Z88.6 Allergy status to analgesic agent; Z88.2 Allergy status to sulfonamides; Z82.49 Family history of ischemic heart disease and other diseases of the circulatory system; Z82.3 Family history of stroke
CPT/HCPCS: 36415; 70450; 70551; 71045; 80048; 80053; 80061; 82550; 82553; 83735; 84484; 85025; 85610; 85730; 93005; 93010; 93306; 93880; 99285; G8978-GP; G8979-GP; G8987-GO; G8988-GO; J0282; J3490; J7030; J7060

== ENCOUNTER 2018-02-01 07:27 | Emergency (ER) | payer MEDICARE, OTHER ==
--- NOTE | 2018-02-01 07:57 | ER Document Report ---
ED GI Bleed / Rectal Pain - General Chief Complaint: Rectal Bleeding Stated Complaint: POSSIBLE RECTAL BLEEDING Time Seen by Provider: 02/01/18 07:51 Notes: Chief complaint: Rectal bleed History of complain:( obtained from----patient) 77 years old female with a history of end-stage renal disease on dialysis, also on Xarelto presents today with on and off bright red blood per rectum since yesterday evening. Denies any abdominal pain but had no nausea or vomiting. Also having loose stools on and off. Denies any fever chills or other constitutional symptoms Onset: Gradual Duration: Less than 24 hours. Severity: Moderate Quality: Dull Context: As above Exacerbating factor and relieving factors: As above REVIEW OF SYSTEMS: CONSTITUTIONAL : Denies fever, chills, or sweats. Denies recent illness. EENT: Denies eye, ear, throat, or mouth pain or symptoms. Denies nasal or sinus congestion or discharge. Denies throat, tongue, or mouth swelling or difficulty swallowing. CARDIOVASCULAR: Denies chest pain. Denies palpitations or racing or irregular heart beat. Denies ankle edema. RESPIRATORY: Denies cough, cold, or chest congestion. Denies shortness of breath, difficulty breathing, or wheezing. GASTROINTESTINAL: Denies distention. Denies nausea, vomiting, or diarrhea. Denies blood in vomitus, . Denies black, tarry stools. Denies constipation. GENITOURINARY: Denies difficulty urinating, painful urination, burning, frequency, blood in urine, or discharge. FEMALE GENITOURINARY: Denies vaginal bleeding, heavy or abnormal periods, irregular periods. Denies vaginal discharge or odor. MUSCULOSKELETAL: Denies back or neck pain or stiffness. Denies joint pain or swelling. SKIN: Denies rash, lesions or sores. HEMATOLOGIC : Denies easy bruising or bleeding. LYMPHATIC: Denies swollen, enlarged glands. NEUROLOGICAL: Denies confusion or altered mental status. Denies passing out or loss of consciousness. Denies dizziness or lightheadedness. Denies headache. Denies weakness or paralysis or loss of use of either side. Denies problems with gait or speech. Denies sensory loss, numbness, or tingling. Denies seizures. PSYCHIATRIC: Denies anxiety or stress. Denies depression, suicidal ideation, or homicidal ideation. ALL OTHER SYSTEMS REVIEWED AND NEGATIVE. PHYSICAL EXAMINATION: GENERAL: Well-appearing, well-nourished and in no acute distress. HEAD: Atraumatic, normocephalic. EYES: Pupils equal round and reactive to light, extraocular movements intact, conjunctiva are normal. ENT: Nares patent, oropharynx clear without exudates. Moist mucous membranes. NECK: Normal range of motion, supple without lymphadenopathy LUNGS: Breath sounds clear to auscultation bilaterally and equal. No wheezes rales or rhonchi. HEART: Regular rate and rhythm without murmurs ABDOMEN: Soft, nontender, nondistended abdomen. No guarding, no rebound. No masses appreciated. Rectal exam-shows external hemorrhoid polyps which has opened up at 3 o'clock position and which has a raw area and bright red blood around it. Examination of genitals-deferred Musculoskeletal: Normal range of motion, no pitting or edema. No cyanosis. NEUROLOGICAL: Cranial nerves grossly intact. Normal speech, normal gait. Normal sensory, motor exams PSYCH: Normal mood, normal affect. SKIN: Warm, Dry, normal turgor, no rashes or lesions noted. Dictation was performed using [employer] voice recognition software TRAVEL OUTSIDE OF THE [place] IN LAST 30 DAYS: No - HPI Patient complains to provider of: No: Bright red bld from rect., Coffee ground emesis, Dark red bld from rectum, Dark/tarry stools, Hemorrhoids, Rectal pain, Vomiting blood, Other Quality of pain: denies: No pain, Achy, Burning, Cramping, Dull, Fullness, Pressure, Sharp, Stabbing, Throbbing, Other Severity of symptoms: Moderate Dark Stools: No: Maroon, Black, Tarry Associated symptoms: denies: None, Back pain, Abdominal pain, Bruising/bleeding gums, Chest pain, Constipation, Fainting/dizzy/lightheade, Hard stools, Sweaty, Other Exacerbated by: denies: Denies, Supine, Sitting, Standing, Movement, Walking, Coughing, Deep breathing, Food, Other Notes: Dictated - Related Data Allergies/Adverse Reactions: Sulfa (Sulfonamide Antibiotics) Allergy (Severe, Verified 02/01/18 07:54) unsure pregabalin [From Lyrica] Adverse Reaction (Severe, Verified 02/01/18 07:54) irritable,weight gain Past Medical History - Social History Smoking Status: Never Smoker Cigarette use (# per day): No Chew tobacco use (# tins/day): No Smoking Education Provided: No Frequency of alcohol use: None Drug Abuse: None Lives with: Family Family History: Reviewed & Not Pertinent, CAD, Other - Past Medical History Cardiac Medical History: Reports: Hx Coronary Artery Disease, Hx Heart Attack - 2000, Hx Hypercholesterolemia, Hx Hypertension Denies: Hx Atrial Fibrillation Pulmonary Medical History: Reports: Hx COPD, Hx Sleep Apnea Denies: Hx Asthma, Hx Bronchitis, Hx Pneumonia Neurological Medical History: Reports: Hx Cerebrovascular Accident - LEFT SIDE WEAKER THAN RIGHT. Denies: Hx Seizures Endocrine Medical History: Reports: Hx Hypothyroidism. Denies: Hx Diabetes Mellitus Type 1, Hx Diabetes Mellitus Type 2 Renal/ Medical History: Reports: Hx End Stage Renal Disease, Hx Hemodialysis, Hx Renal Insufficiency - Chronic kidney disease stage III. Denies: Hx Peritoneal Dialysis GI Medical History: Reports: Hx Colonoscopy. Denies: Hx Hepatitis, Hx Hiatal Hernia. Comment Only: Hx Ulcer - DIVERTICULITIS Musculoskeletal Medical History: Denies Hx Arthritis Psychiatric Medical History: Denies: Hx Depression Infectious Medical History: Denies: Hx Hepatitis Past Surgical History: Reports: Hx Appendectomy, Hx Cardiac Catheterization, Hx Cardiac Surgery - STENT, Hx Cholecystectomy, Hx Coronary Stent - August 2014, Hx Tubal Ligation, Hx Vascular Surgery - PermCath placement for dialysis. Denies: Hx Hysterectomy, Hx Mastectomy, Hx Open Heart Surgery, Hx Pacemaker - Immunizations Hx Diphtheria, Pertussis, Tetanus Vaccination: Yes Hx Pneumococcal Vaccination: 07/07/12 Review of Systems - Review of Systems Notes: Dictated Physical Exam - Vital signs Vitals: Temp 97.9 F 02/01/18 07:30 - Notes Notes: Dictated Course - Vital Signs Vital signs: Temp Pulse Resp BP Pulse Ox 97.9 F 16 126/73 H 96 02/01/18 07:30 02/01/18 09:01 02/01/18 09:01 02/01/18 09:01 02/01/18 10:24 The case was discussed with [facility] and currently being transferred for GI bleed - Laboratory Result Diagrams: 02/01/18 07:37 02/01/18 07:37 Laboratory results interpreted by me: 02/01/18 02/01/18 02/01/18 07:37 07:37 07:37 RBC 3.38 L Hgb 10.9 L Hct 31.4 L RDW 14.1 H PT 22.2 H BUN 32 H Creatinine 3.21 H Est GFR ( Amer) 17 L Est GFR (Non-Af Amer) 14 L Total Protein 5.6 L Albumin 3.2 L Discharge - Discharge Clinical Impression: Lower GI bleed, End stage renal failure on dialysis, Atrial fibrillation with RVR Condition: Fair Disposition: [facility] Referrals: GIANNA BOURGEOIS MD [Primary Care Provider] - Follow up as needed
[2018-02-01 08:02] LABS: ABSOLUTE EOSINOPHILS # (AUTO) 0.1 10^3/uL (0.0-0.6); ABSOLUTE LYMPHOCYTES (AUTO) 1.4 10^3/uL (0.5-4.7); ABSOLUTE MONOCYTES (AUTO) 0.5 10^3/uL (0.1-1.4); ABSOLUTE NEUT (AUTO) 2.4 10^3/uL (1.7-8.2); BASOPHILS % (AUTO) 0.9 % (0-2); EOSINOPHILS % (AUTO) 1.8 % (0-6); HEMATOCRIT 31.4 % (36.0-47.0); HEMOGLOBIN 10.9 g/dL (12.0-15.5); MEAN CORPUSCULAR HEMOGLOBIN 32.2 pg (27.0-33.4); MEAN CORPUSCULAR HGB CONC 34.6 g/dL (32.0-36.0); MEAN CORPUSCULAR VOLUME 93 fl (80-97); MONOCYTES % (AUTO) 11.4 % (3-13); PLATELET COUNT 295 10^3/uL (150-450); RED BLOOD COUNT 3.38 10^6/uL (3.72-5.28); RED CELL DISTRIBUTION WIDTH 14.1 % (11.5-14.0); SEGMENTED NEUTROPHILS % (AUTO) 53.9 % (42-78); TOTAL CELLS COUNTED % (AUTO) 100 %; WHITE BLOOD COUNT 4.5 10^3/uL (4.0-10.5)
[2018-02-01 08:04] LABS: INTERNATIONAL RATION (INR) 1.85; PROTHROMBIN TIME 22.2 SEC (11.4-15.4)
[2018-02-01 08:24] LABS: ALANINE AMINOTRANSFERASE 19 U/L (9-52); ALBUMIN 3.2 g/dL (3.5-5.0); ALKALINE PHOSPHATASE 64 U/L (38-126); ANION GAP 12 (5-19); ASPARTATE AMINO TRANSFERASE 16 U/L (14-36); BILIRUBIN,DIRECT 0.2 mg/dL (0.0-0.4); BILIRUBIN,TOTAL 0.6 mg/dL (0.2-1.3); BLOOD UREA NITROGEN 32 mg/dL (7-20); CALCIUM 8.7 mg/dL (8.4-10.2); CARBON DIOXIDE 28 mmol/L (22-30); CHLORIDE 103 mmol/L (98-107); GLUCOSE 86 mg/dL (75-110); POTASSIUM 3.8 mmol/L (3.6-5.0); SODIUM 143.3 mmol/L (137-145); TOTAL PROTEIN 5.6 g/dL (6.3-8.2)
[2018-02-01 14:07] LABS: ABSOLUTE LYMPHOCYTES (AUTO) 1.7 10^3/uL (0.5-4.7); ABSOLUTE MONOCYTES (AUTO) 0.5 10^3/uL (0.1-1.4); ABSOLUTE NEUT (AUTO) 3.2 10^3/uL (1.7-8.2); BASOPHILS % (AUTO) 0.3 % (0-2); EOSINOPHILS % (AUTO) 0.9 % (0-6); HEMATOCRIT 31.2 % (36.0-47.0); HEMOGLOBIN 10.7 g/dL (12.0-15.5); LYMPHOCYTES % (AUTO) 31.3 % (13-45); MEAN CORPUSCULAR HEMOGLOBIN 31.9 pg (27.0-33.4); MEAN CORPUSCULAR HGB CONC 34.2 g/dL (32.0-36.0); MEAN CORPUSCULAR VOLUME 93 fl (80-97); MONOCYTES % (AUTO) 8.7 % (3-13); PLATELET COUNT 295 10^3/uL (150-450); RED BLOOD COUNT 3.35 10^6/uL (3.72-5.28); RED CELL DISTRIBUTION WIDTH 14.1 % (11.5-14.0); SEGMENTED NEUTROPHILS % (AUTO) 58.8 % (42-78); TOTAL CELLS COUNTED % (AUTO) 100 %; WHITE BLOOD COUNT 5.4 10^3/uL (4.0-10.5)
[2018-02-01 14:45] VITALS: BP 135/69
== END 2018-02-01 14:50 | disposition short-term general hospital (02) ==
LOC: ER 07:27
DX: K92.2 Gastrointestinal hemorrhage, unspecified (principal); I48.91 Unspecified atrial fibrillation; Z79.01 Long term (current) use of anticoagulants; I12.0 Hypertensive chronic kidney disease with stage 5 chronic kidney disease or end stage renal disease; N18.6 End stage renal disease; Z99.2 Dependence on renal dialysis; R19.4 Change in bowel habit; K64.4 Residual hemorrhoidal skin tags; I25.10 Atherosclerotic heart disease of native coronary artery without angina pectoris; J44.9 Chronic obstructive pulmonary disease, unspecified; Z95.5 Presence of coronary angioplasty implant and graft; Z88.2 Allergy status to sulfonamides
CPT/HCPCS: 36415; 80053; 85025; 85610; 99285

== ENCOUNTER → 2018-02-27 | Outpatient (CLI) | payer MEDICARE, OTHER ==
[2018-02-27 12:05] LABS: FREE T3 2.14 pg/mL (2.77-5.27)
[2018-02-27 12:19] LABS: THYROID STIMULATING HORMONE 14.2 uIU/mL (0.47-4.68)
[2018-03-03 16:04] LABS: IRON(TIBC) 20.8 ug/dL (37-170)
== END ==
LOC: OD 10:36
PROVIDERS: ATTEND Family Medicine
DX: E03.9 Hypothyroidism, unspecified (principal); D62 Acute posthemorrhagic anemia
CPT/HCPCS: 36415; 83540; 83550; 84443; 84481

== ENCOUNTER 2018-03-10 10:14 | Inpatient (IN) | payer MEDICARE, OTHER ==
[2018-03-10 10:50] LABS: ABSOLUTE BASOPHILS # (AUTO) 0.1 10^3/uL (0.0-0.2); ABSOLUTE EOSINOPHILS # (AUTO) 0.1 10^3/uL (0.0-0.6); ABSOLUTE LYMPHOCYTES (AUTO) 0.8 10^3/uL (0.5-4.7); ABSOLUTE MONOCYTES (AUTO) 0.4 10^3/uL (0.1-1.4); ABSOLUTE NEUT (AUTO) 3.9 10^3/uL (1.7-8.2); EOSINOPHILS % (AUTO) 2.3 % (0-6); HEMATOCRIT 31.1 % (36.0-47.0); HEMOGLOBIN 10.5 g/dL (12.0-15.5); LYMPHOCYTES % (AUTO) 14.6 % (13-45); MEAN CORPUSCULAR HEMOGLOBIN 31.4 pg (27.0-33.4); MEAN CORPUSCULAR HGB CONC 33.6 g/dL (32.0-36.0); MEAN CORPUSCULAR VOLUME 94 fl (80-97); MONOCYTES % (AUTO) 7.8 % (3-13); PLATELET COUNT 319 10^3/uL (150-450); RED BLOOD COUNT 3.33 10^6/uL (3.72-5.28); RED CELL DISTRIBUTION WIDTH 14.8 % (11.5-14.0); SEGMENTED NEUTROPHILS % (AUTO) 73.3 % (42-78); TOTAL CELLS COUNTED % (AUTO) 100 %; WHITE BLOOD COUNT 5.4 10^3/uL (4.0-10.5)
[2018-03-10 11:02] LABS: PARTIAL THROMBOPLASTIN TIME 35.1 SEC (23.5-35.8); PROTHROMBIN TIME 21.8 SEC (11.4-15.4)
--- NOTE | 2018-03-10 11:06 | ER Document Report ---
ED Dizziness/Weakness - General Chief Complaint: General Weakness Stated Complaint: WEAKNESS Time Seen by Provider: 03/10/18 10:33 Notes: This is a 77-year-old female patient history of renal failure, on dialysis, history of A. fib on antiarrhythmic medication as well as Eliquis to the emergency department from her primary care doctor's office for evaluation of weakness. Patient has been having bloody stools for the last 3 days. Went to her card decorator because of her weakness and he sent her here. Her blood pressure was apparently low. Supposed to have dialysis today at 11:00. Last dialysis was on Friday. Patient denies any significant abdominal pain. Does state she has a history of diverticulosis with significant bleeding in the past. TRAVEL OUTSIDE OF THE [place] IN LAST 30 DAYS: No - HPI Patient complains to provider of: Dizziness, Weakness Onset: Last week Onset/Duration: Gradual Quality of pain: No pain Severity: Moderate Pain Level: Denies Associated symptoms: Lightheaded, Weak all over - Related Data Allergies/Adverse Reactions: Sulfa (Sulfonamide Antibiotics) Allergy (Severe, Verified 03/10/18 10:21) unsure pregabalin [From Lyrica] Adverse Reaction (Severe, Verified 03/10/18 10:21) irritable,weight gain Past Medical History - General Information source: Patient, [facility] Records - Social History Smoking Status: Never Smoker Frequency of alcohol use: None Drug Abuse: None Lives with: Spouse/Significant other Family History: Reviewed & Not Pertinent, CAD, Other - Past Medical History Cardiac Medical History: Reports: Hx Coronary Artery Disease, Hx Heart Attack - 2000, Hx Hypercholesterolemia, Hx Hypertension Denies: Hx Atrial Fibrillation Pulmonary Medical History: Reports: Hx COPD, Hx Sleep Apnea Denies: Hx Asthma, Hx Bronchitis, Hx Pneumonia Neurological Medical History: Reports: Hx Cerebrovascular Accident - LEFT SIDE WEAKER THAN RIGHT. Denies: Hx Seizures Endocrine Medical History: Reports: Hx Hypothyroidism. Denies: Hx Diabetes Mellitus Type 1, Hx Diabetes Mellitus Type 2 Renal/ Medical History: Reports: Hx End Stage Renal Disease, Hx Hemodialysis, Hx Renal Insufficiency - Chronic kidney disease stage III. Denies: Hx Peritoneal Dialysis GI Medical History: Reports: Hx Colonoscopy. Denies: Hx Hepatitis, Hx Hiatal Hernia. Comment Only: Hx Ulcer - DIVERTICULITIS Musculoskeletal Medical History: Denies Hx Arthritis Psychiatric Medical History: Denies: Hx Depression Infectious Medical History: Denies: Hx Hepatitis Past Surgical History: Reports: Hx Appendectomy, Hx Cardiac Catheterization, Hx Cardiac Surgery - STENT, Hx Cholecystectomy, Hx Coronary Stent - August 2014, Hx Tubal Ligation, Hx Vascular Surgery - PermCath placement for dialysis. Denies: Hx Hysterectomy, Hx Mastectomy, Hx Open Heart Surgery, Hx Pacemaker - Immunizations Hx Diphtheria, Pertussis, Tetanus Vaccination: Yes Hx Pneumococcal Vaccination: 07/07/12 Review of Systems - Review of Systems Notes: Constitutional: denies: Chills, Diaphoresis, Fever, Malaise,. Does complain of generalized weakness all over EENT: denies: Eye discharge, Blurred vision, Tearing, Double vision, Nose congestion, Nose discharge, Throat swelling, Mouth pain Cardiovascular: denies: Palpitations, Heart racing, Orthopnea, Dyspnea, Chest pain Respiratory: denies: Cough, Hurts to breathe, Wheezing, Shortness of breath Gastrointestinal: denies: Abdominal pain, Diarrhea, Nausea, Vomiting,. Does complain of bright red blood in her stool. Genitourinary: denies: Burning, Dysuria, Discharge, Frequency, Flank pain, Hematuria Musculoskeletal: denies: Joint pain, Joint swelling, Muscle pain, Muscle stiffness, back pain Hematologic/Lymphatic: denies: Anemia, Easy bleeding, Easy bruising, Blood clots Neurological/Psychological: denies: Confusion, Dementia, Depression, Loss of consciousness Skin: No lesions, no masses, no skin breakdown, no abscesses Physical Exam - Vital signs Vitals: Resp Pulse Ox 20 92 03/10/18 10:21 03/10/18 10:21 Interpretation: Normal - General General appearance: Appears well, Alert - HEENT Head: Normocephalic, Atraumatic Eyes: Normal Pupils: PERRL - Respiratory Respiratory status: No respiratory distress Chest status: Nontender Breath sounds: Normal Chest palpation: Normal - Cardiovascular Rhythm: Regular Heart sounds: Normal auscultation Murmur: No - Abdominal Inspection: Normal Distension: No distension Bowel sounds: Normal Tenderness: Nontender Organomegaly: No organomegaly - Rectal Stool: Heme positive, Bloody - Back Back: Normal, Nontender - Extremities General upper extremity: Normal inspection, Nontender, Normal color, Normal ROM , Normal temperature General lower extremity: Normal inspection, Nontender, Edema, Normal color, Normal ROM, Normal temperature. No: Lauro's sign - Neurological Neuro grossly intact: Yes Cognition: Normal Orientation: AAOx4 [place] Coma Scale Eye Opening: Spontaneous [place] Coma Scale Verbal: Oriented [place] Coma Scale Motor: Obeys Commands [place] Coma Scale Total: 15 Speech: Normal Motor strength normal: LUE, RUE, LLE, RLE Sensory: Normal - Psychological Associated symptoms: Normal affect, Normal mood - Skin Skin Temperature: Warm Skin Moisture: Dry Skin Color: Normal Course - Re-evaluation Re-evalutation: 03/10/18 13:41 Laboratory 03/10/18 03/10/18 03/10/18 10:07 10:07 10:07 WBC 5.4 RBC 3.33 L Hgb 10.5 L Hct 31.1 L MCV 94 MCH 31.4 MCHC 33.6 RDW 14.8 H Plt Count 319 Seg Neutrophils % 73.3 Lymphocytes % 14.6 Monocytes % 7.8 Eosinophils % 2.3 Basophils % 2.0 Absolute Neutrophils 3.9 Absolute Lymphocytes 0.8 Absolute Monocytes 0.4 Absolute Eosinophils 0.1 Absolute Basophils 0.1 PT 21.8 H INR 1.80 APTT 35.1 Sodium 140.0 Potassium 4.4 Chloride 105 Carbon Dioxide 24 Anion Gap 11 BUN 43 H Creatinine 4.63 H Est GFR ( Amer) 11 L Est GFR (Non-Af Amer) 9 L Glucose 121 H Calcium 8.8 Total Bilirubin 0.6 Direct Bilirubin 0.3 Neonat Total Bilirubin Not Reportable Neonat Direct Bilirubin Not Reportable Neonat Indirect Bili Not Reportable AST 28 ALT 14 Alkaline Phosphatase 55 Troponin I Total Protein 6.5 Albumin 3.6 Urine Color Urine Appearance Urine pH Ur Specific [place] Urine Protein Urine Glucose (UA) Urine Ketones Urine Blood Urine Nitrite Urine Bilirubin Urine Urobilinogen Ur Leukocyte Esterase Urine WBC (Auto) Urine RBC (Auto) Urine Bacteria (Auto) Squamous Epi Cells Auto Urine Ascorbic Acid Stool Occult Blood Blood Type Antibody Screen 03/10/18 03/10/18 03/10/18 10:07 10:40 11:55 WBC RBC Hgb Hct MCV MCH MCHC RDW Plt Count Seg Neutrophils % Lymphocytes % Monocytes % Eosinophils % Basophils % Absolute Neutrophils Absolute Lymphocytes Absolute Monocytes Absolute Eosinophils Absolute Basophils PT INR APTT Sodium Potassium Chloride Carbon Dioxide Anion Gap BUN Creatinine Est GFR ( Amer) Est GFR (Non-Af Amer) Glucose Calcium Total Bilirubin Direct Bilirubin Neonat Total Bilirubin Neonat Direct Bilirubin Neonat Indirect Bili AST ALT Alkaline Phosphatase Troponin I < 0.012 Total Protein Albumin Urine Color YELLOW Urine Appearance CLEAR Urine pH 7.0 Ur Specific [place] 1.010 Urine Protein 100 H Urine Glucose (UA) NEGATIVE Urine Ketones NEGATIVE Urine Blood NEGATIVE Urine Nitrite NEGATIVE Urine Bilirubin NEGATIVE Urine Urobilinogen 2.0 H Ur Leukocyte Esterase NEGATIVE Urine WBC (Auto) 1 Urine RBC (Auto) 1 Urine Bacteria (Auto) 3+ Squamous Epi Cells Auto 4 Urine Ascorbic Acid NEGATIVE Stool Occult Blood POSITIVE Blood Type Antibody Screen 03/10/18 12:15 WBC RBC Hgb Hct MCV MCH MCHC RDW Plt Count Seg Neutrophils % Lymphocytes % Monocytes % Eosinophils % Basophils % Absolute Neutrophils Absolute Lymphocytes Absolute Monocytes Absolute Eosinophils Absolute Basophils PT INR APTT Sodium Potassium Chloride Carbon Dioxide Anion Gap BUN Creatinine Est GFR ( Amer) Est GFR (Non-Af Amer) Glucose Calcium Total Bilirubin Direct Bilirubin Neonat Total Bilirubin Neonat Direct Bilirubin Neonat Indirect Bili AST ALT Alkaline Phosphatase Troponin I Total Protein Albumin Urine Color Urine Appearance Urine pH Ur Specific [place] Urine Protein Urine Glucose (UA) Urine Ketones Urine Blood Urine Nitrite Urine Bilirubin Urine Urobilinogen Ur Leukocyte Esterase Urine WBC (Auto) Urine RBC (Auto) Urine Bacteria (Auto) Squamous Epi Cells Auto Urine Ascorbic Acid Stool Occult Blood Blood Type A POSITIVE Antibody Screen NEGATIVE Chest X-Ray 03/10/18 10:44 IMPRESSION: DIFFUSE INTERSTITIAL PROMINENCE, POSSIBLY CHRONIC SCARRING ALTHOUGH MILD INTERSTITIAL EDEMA MAY BE PRESENT. Consult with surgeon with regards to possible GI bleed. Patient more than likely is having the symptoms due to her GI bleed. Does not appear to have a brisk bleed at this time. Hemoglobin is 10.5. Patient is on Eliquis and did have a recent colonoscopy. The surgeon is comfortable keeping her here she does not need any further surgical intervention unless she continues to bleed. Patient does have diffuse interstitial prominence probably chronic. I will consult with the hospitalist at this time for admission. - Vital Signs Vital signs: Temp Pulse Resp BP Pulse Ox 18 122/70 88 L 03/10/18 13:01 03/10/18 13:00 03/10/18 13:01 - Laboratory Result Diagrams: 03/10/18 10:07 03/10/18 10:07 Laboratory results interpreted by me: 03/10/18 03/10/18 03/10/18 10:07 10:07 10:07 RBC 3.33 L Hgb 10.5 L Hct 31.1 L RDW 14.8 H PT 21.8 H BUN 43 H Creatinine 4.63 H Est GFR ( Amer) 11 L Est GFR (Non-Af Amer) 9 L Glucose 121 H Urine Protein Urine Urobilinogen 03/10/18 11:55 RBC Hgb Hct RDW PT BUN Creatinine Est GFR ( Amer) Est GFR (Non-Af Amer) Glucose Urine Protein 100 H Urine Urobilinogen 2.0 H Discharge - Discharge Clinical Impression: Gastrointestinal bleeding, lower, Weakness Renal failure Qualifiers: Renal failure chronicity: chronic Chronic kidney disease stage: on chronic dialysis Qualified Code(s): N18.6 - End stage renal disease Condition: Good Disposition: ADMITTED INPATIENT Admitting Provider: Hospitalist - Dut Unit Admitted: Telemetry Referrals: GIANNA BOURGEOIS MD [Primary Care Provider] - Follow up as needed
[2018-03-10 11:33] LABS: ALANINE AMINOTRANSFERASE 14 U/L (9-52); ALBUMIN 3.6 g/dL (3.5-5.0); ALKALINE PHOSPHATASE 55 U/L (38-126); ANION GAP 11 (5-19); ASPARTATE AMINO TRANSFERASE 28 U/L (14-36); BILIRUBIN,DIRECT 0.3 mg/dL (0.0-0.4); BILIRUBIN,TOTAL 0.6 mg/dL (0.2-1.3); BLOOD UREA NITROGEN 43 mg/dL (7-20); CALCIUM 8.8 mg/dL (8.4-10.2); CARBON DIOXIDE 24 mmol/L (22-30); CHLORIDE 105 mmol/L (98-107); GLUCOSE 121 mg/dL (75-110); POTASSIUM 4.4 mmol/L (3.6-5.0); TOTAL PROTEIN 6.5 g/dL (6.3-8.2)
--- NOTE | 2018-03-10 12:38 | EKG REPORT ---
SEVERITY:- BORDERLINE ECG - SINUS RHYTHM BORDERLINE INFERIOR Q WAVES BORDERLINE PROLONGED QT INTERVAL : Confirmed by: Catarino Sinclair MD 10-Mar-2018 12:38:11
[2018-03-10 12:39] LABS: APPEARANCE,URINE CLEAR; BILIRUBIN,URINE NEGATIVE (NEGATIVE); COLOR,URINE YELLOW; GLUCOSE, URINE NEGATIVE (NEGATIVE); KETONES,URINE NEGATIVE (NEGATIVE); LEUKOCYTE ESTERASE,URINE NEGATIVE (NEGATIVE); NITRITE,URINE NEGATIVE (NEGATIVE); PROTEIN,URINE 100 mg/dL (NEGATIVE)
--- NOTE | 2018-03-10 12:52 | RADIOLOGY REPORT (SQ) ---
EXAM DESCRIPTION: CHEST SINGLE VIEW COMPLETED DATE/TIME: 03/10/2018 12:41 pm REASON FOR STUDY: sob COMPARISON: 01/22/2018. EXAM PARAMETERS: NUMBER OF VIEWS: One view. TECHNIQUE: Single frontal radiographic view of the chest acquired. RADIATION DOSE: NA LIMITATIONS: None. FINDINGS: LUNGS AND PLEURA: Diffuse interstitial prominence. Mild pleural thickening in the apices. No focal infiltrates, masses or pneumothorax. No pleural effusion. MEDIASTINUM AND HILAR STRUCTURES: No masses. Contour normal. HEART AND VASCULAR STRUCTURES: Mild cardiomegaly. Normal vasculature. BONES: No acute findings. HARDWARE: None in the chest. OTHER: No other significant finding. IMPRESSION: DIFFUSE INTERSTITIAL PROMINENCE, POSSIBLY CHRONIC SCARRING ALTHOUGH MILD INTERSTITIAL ED MALU MAY BE PRESENT. TECHNICAL DOCUMENTATION: JOB ID: [id number] [employer]- All Rights Reserved Reading location - IP/workstation name: [email or web address]
[2018-03-10] MEDS ORDERED: ACETAMINOPHEN 325 MG TABLET PO PRN (15:30)
[2018-03-10] MEDS ORDERED: ONDANSETRON HCL INJ/PF 4 MG/2 ML SDV IV PRN (15:30)
--- NOTE | 2018-03-10 16:23 | PDOC H&P ---
History of Present Illness Admission Date/PCP: 03/10/18 14:05 GIANNA BOURGEOIS MD Patient complains of: Weakness and lower GI bleed History of Present Illness: EZRA SUERO is a 77 year old female with a past medical history of COPD, hypertension, previous CVA, KS status post stent, atrial fibrillation, and end- stage renal disease with dialysis 3 times a week, who presented to the ED sent by her sample clerk with complaints of weakness and lower GI bleed. Patient has a history of lower GI bleed and was seen at [facility] about a month ago for similar reasons and had a colonoscopy done with a found some polyps and diverticulosis. She had presented to our hospital in December for similar GI bleed at that time and had a colonoscopy done which showed again diverticulosis and telangiectasias. At that point in December she was transfused blood. She has a history of coronary artery disease, A. fib and CVA for which she was on Eliquis, Xarelto and aspirin as per patient. A month ago after her episode of GI bleed Xarelto was stopped and she was continued on Eliquis and aspirin. But then she had this GI bleed at [facility] and these medications were stopped. She ended up seeing her sample clerk who restarted her Eliquis about a week ago and 2 days ago she started to feel weak and noted blood in her stool. Patient states she has a bowel movement every 1-2 days. States that she noted bright red blood with her bowel movements. She does admit to hemorrhoids. In the ED she had heme positive bright red blood in her stool. She states she feels a little weak but otherwise she is okay. She denies abdominal pain, nausea/vomiting, chest pain and acute shortness of breath. She does have a history of COPD and does wheeze all the time. She denies any changes in medications, diet or lifestyle modification in the last 2-3 days. She went to her sample clerk's office this morning for a scheduled EKG for her A. fib and when she mentioned that she was having blood per rectum she was sent to the hospital for evaluation. Past Medical History Cardiac Medical History: Reports: Coronary Artery Disease, Myocardial Infarction - 2000, Hyperlipidema, Hypertension Denies: Atrial Fibrillation Pulmonary Medical History: Reports: Chronic Obstructive Pulmonary Disease (COPD) , Sleep Apnea Denies: Asthma, Bronchitis, Pneumonia Neurological Medical History: Denies: Seizures Endocrine Medical History: Reports: Hypothyroidism Denies: Diabetes Mellitus Type 1, Diabetes Mellitus Type 2 Renal/ Medical History: Reports: End Stage Renal Disease GI Medical History: Denies: Hepatitis, Hiatal Hernia Musculoskeltal Medical History: Denies: Arthritis Psychiatric Medical History: Denies: Depression Hematology: Reports: Anemia - HX Denies: Sickle Cell Disease Past Surgical History Past Surgical History: Reports: Appendectomy, Cardiac Catheterization, Cholecystectomy, Coronary Stent - August 2014, Tubal Ligation, Vascular Surgery - PermCath placement for dialysis Denies: Amputation, Hysterectomy, Mastectomy, Pacemaker Social History Lives with: Spouse/Significant other Smoking Status: Never Smoker Frequency of Alcohol Use: None Hx Recreational Drug Use: No Drugs: None Hx Prescription Drug Abuse: No Family History Family History: Reviewed & Not Pertinent, CAD, Other Parental Family History Reviewed: Yes Children Family History Reviewed: Unknown Sibling(s) Family History Reviewed.: Unknown Medication/Allergy Allergies/Adverse Reactions: Sulfa (Sulfonamide Antibiotics) Allergy (Severe, Verified 03/10/18 10:21) unsure pregabalin [From Lyrica] Adverse Reaction (Severe, Verified 03/10/18 10:21) irritable,weight gain Review of Systems All systems: reviewed and no additional remarkable complaints except as stated Constitutional: ABSENT: fatigue, fever(s), headache(s) Eyes: ABSENT: visual disturbances Ears: ABSENT: hearing changes Nose, Mouth, and Throat: ABSENT: headache(s), sore throat Cardiovascular: ABSENT: chest pain, edema, orthropnea, palpitations Respiratory: ABSENT: cough, dyspnea, sputum Gastrointestinal: PRESENT: hematochezia. ABSENT: abdominal pain, coffee ground emesis, constipation, diarrhea, dysphagia, nausea, vomiting Genitourinary: ABSENT: difficulty urinating, dysuria, hematuria Musculoskeletal: ABSENT: joint swelling, muscle weakness Neurological: PRESENT: weakness - generalized. ABSENT: abnormal movements, abnormal speech, numbness, syncope, tingling Endocrine: ABSENT: heat intolerance Hematologic/Lymphatic: ABSENT: easy bleeding, easy bruising Physical Exam Vital Signs: Temp Pulse Resp BP Pulse Ox 97.9 F 20 130/72 H 92 03/10/18 15:10 03/10/18 14:01 03/10/18 14:00 03/10/18 14:01 General appearance: PRESENT: no acute distress, obese Head exam: PRESENT: atraumatic, normocephalic Eye exam: PRESENT: EOMI, PERRLA. ABSENT: scleral icterus Ear exam: PRESENT: normal external ear exam Mouth exam: PRESENT: tongue midline Teeth exam: PRESENT: poor dentation Neck exam: ABSENT: tracheal deviation Respiratory exam: PRESENT: decreased breath sounds - bilaterally, symmetrical, wheezes Pulses: PRESENT: +2 pedal pulses bilateral Vascular exam: PRESENT: normal capillary refill GI/Abdominal exam: PRESENT: normal bowel sounds, soft, tenderness - RUQ TTP Rectal exam: PRESENT: deferred - patient declined Extremities exam: ABSENT: joint swelling, pedal edema Musculoskeletal exam: ABSENT: tenderness Neurological exam: PRESENT: alert, awake, oriented to person, oriented to place , oriented to time, oriented to situation, CN II-XII grossly intact, other - left UE and LE weakness- 4/5 strength- gross sensation intact Skin exam: PRESENT: dry, warm. ABSENT: erythema Results Impressions: Chest X-Ray 03/10/18 10:44 IMPRESSION: DIFFUSE INTERSTITIAL PROMINENCE, POSSIBLY CHRONIC SCARRING ALTHOUGH MILD INTERSTITIAL EDEMA MAY BE PRESENT. Assessment & Plan - Diagnosis (1) Gastrointestinal bleeding, lower Is this a current diagnosis for this admission?: Yes Plan: This is a difficult situation for this patient since she requires anticoagulation but at the same time she is having GI bleed. She was recently started back on Eliquis and aspirin by her sample clerk due to history of CVA, CAD and atrial fibrillation. I called and spoke with this afternoon regarding her care. We both agreed that given her GI bleed we have to hold Eliquis at this time. He has consulted cardiology at [place] and patient does have an appointment at the end of the month to discuss further options regarding anticoagulation. Right now her hemoglobin is 10.5 and stable. Her hemoglobin was around 10 and 11 in the last 2 months. I will go ahead and type and screen her just in case if her hemoglobin drops less than 8. Transfuse 1-2 units if hemoglobin is less than 8. I will place her in observation for tonight and monitor her hemoglobin with every 8 hours CBC. As per ER physician he had consulted surgeon animal control specialist regarding this patient but they do not recommend any intervention such as colonoscopy or EGD at this time. Patient has had multiple colonoscopies in the last few months regarding a GI bleed and was found to have diverticulosis and telangiectasias. At this time I will not keep her n.p.o. since we have no procedures planned for the morning. (2) Weakness Is this a current diagnosis for this admission?: Yes Plan: Likely due to her GI bleed versus age. Will monitor for now. I have consulted PT/OT evaluate her in the morning. (3) Anemia Qualifiers: Chronic kidney disease stage: on chronic dialysis Is this a current diagnosis for this admission?: Yes Plan: See plan above. (4) COPD (chronic obstructive pulmonary disease) Qualifiers: COPD type: unspecified COPD Qualified Code(s): J44.9 - Chronic obstructive pulmonary disease, unspecified Is this a current diagnosis for this admission?: Yes Plan: Normally she is on Advair, Spiriva and nebulizers at home. When she arrived her oxygen saturation was greater than 91% on room air but later she required 2 L of oxygen to keep her above 91%. Given a history of COPD I think we should titrate to greater than 89%. We do not have a baseline oxygen on her. At this time we will continue with the supplemental oxygen and wean as tolerated. I do not think she is in COPD exacerbation at this time although she is wheezing. Family does tell me that she wheezes all the time. I will add DuoNeb as needed for any kind of acute shortness of breath. (5) Coronary artery disease Qualifiers: Coronary Disease-Associated Artery/Lesion type: [place] artery [place] vs. transplanted heart: [place] heart Associated angina: without angina Qualified Code(s): I25.10 - Atherosclerotic heart disease of [place] coronary artery without angina pectoris Is this a current diagnosis for this admission?: Yes Plan: Patient is supposed to be on multiple anticoagulations. With history of KS and coronary artery disease status post stenting she is in need of anticoagulation. But unfortunately she does have a history of GI bleed within the last few months and this has become an issue for this pleasant patient. I did speak with her sample clerk regarding this and at this time we are in agreement that we will hold Eliquis but we will continue with the aspirin 81 mg daily. (6) End stage renal failure on dialysis Is this a current diagnosis for this admission?: Yes Plan: History of end-stage renal disease on hemodialysis 3 days a week- still making urine. She was scheduled to have her dialysis today but ER has already called and spoke with nephrology and they said they will wait until tomorrow. I will put in a consult for nephrology to see the patient tomorrow for dialysis if she needs one prior to discharge. (7) HTN (hypertension) Qualifiers: Hypertension type: essential hypertension Qualified Code(s): I10 - Essential (primary) hypertension Is this a current diagnosis for this admission?: Yes Plan: Blood pressure is stable in the ED. Her meds have not been reconciled by pharmacy yet. At this point will continue all her home meds as needed and necessary and appropriate. (8) RUQ abdominal pain Is this a current diagnosis for this admission?: Yes Plan: there was some RUQ tenderness on palpation on my exam- will get RUQ U/S. - Time Time Spent: 50 to 70 Minutes Within: within 48 hours - Plan Summary Plan Summary: Place patient in observation overnight. Monitor her hemoglobin. Hopefully discharge her in a.m. if her hemoglobin remains steady. Likely we will hold Eliquis on discharge and continue with aspirin 81 mg.
--- NOTE | 2018-03-10 19:20 | EKG REPORT ---
SEVERITY:- BORDERLINE ECG - SINUS RHYTHM BORDERLINE PROLONGED QT INTERVAL : Confirmed by: Catarino Sinclair MD 10-Mar-2018 19:19:25
[2018-03-10] MEDS: IPRATROPIUM/ALBUTEROL 0.5-2.5 MG/3 ML AMPUL NEB PRN (21:54)
[2018-03-10 22:09] LABS: HEMATOCRIT 31.3 % (36.0-47.0); HEMOGLOBIN 10.5 g/dL (12.0-15.5); MEAN CORPUSCULAR HEMOGLOBIN 31.5 pg (27.0-33.4); MEAN CORPUSCULAR HGB CONC 33.6 g/dL (32.0-36.0); MEAN CORPUSCULAR VOLUME 94 fl (80-97); PLATELET COUNT 305 10^3/uL (150-450); RED BLOOD COUNT 3.33 10^6/uL (3.72-5.28); RED CELL DISTRIBUTION WIDTH 14.9 % (11.5-14.0)
[2018-03-11] MEDS: FAMOTIDINE 20 MG TABLET PO SCH ×3 (00:37→23:41)
[2018-03-11 06:03] LABS: HEMATOCRIT 28.1 % (36.0-47.0); HEMOGLOBIN 9.5 g/dL (12.0-15.5); MEAN CORPUSCULAR HEMOGLOBIN 31.7 pg (27.0-33.4); MEAN CORPUSCULAR HGB CONC 33.9 g/dL (32.0-36.0); MEAN CORPUSCULAR VOLUME 94 fl (80-97); PLATELET COUNT 276 10^3/uL (150-450); RED CELL DISTRIBUTION WIDTH 14.4 % (11.5-14.0); WHITE BLOOD COUNT 5.7 10^3/uL (4.0-10.5)
[2018-03-11 06:36] LABS: ANION GAP 10 (5-19); BLOOD UREA NITROGEN 44 mg/dL (7-20); CALCIUM 8.5 mg/dL (8.4-10.2); CARBON DIOXIDE 23 mmol/L (22-30); CHLORIDE 108 mmol/L (98-107); GLUCOSE 73 mg/dL (75-110); POTASSIUM 4.2 mmol/L (3.6-5.0); SODIUM 141.3 mmol/L (137-145)
[2018-03-11] MEDS: IPRATROPIUM/ALBUTEROL 0.5-2.5 MG/3 ML AMPUL NEB PRN (07:55)
[2018-03-11] MEDS ORDERED: NITROGLYCERIN 0.4 MG/TAB 25 TAB/BOTTLE SL PRN (10:21)
[2018-03-11] MEDS: SENNOSIDES/DOCUSATE 8.6-50 MG 1 EACH TABLET PO SCH (11:43)
[2018-03-11] MEDS: FEBUXOSTAT 40 MG TABLET PO SCH (11:57)
[2018-03-11] MEDS: FLUTICASONE/SALMETEROL DISKUS 250-50 MCG/DOSE IH SCH ×2 (11:57→23:47)
[2018-03-11] MEDS: TIOTROPIUM BROMIDE DPI 5 CAP/KIT (18 MCG/CAP) IH SCH (11:57)
[2018-03-11] MEDS: LEVOTHYROXINE SODIUM 0.112 MG TABLET PO SCH (11:57)
--- NOTE | 2018-03-11 12:19 | RADIOLOGY REPORT (SQ) ---
EXAM DESCRIPTION: U/S ABDOMEN LIMITED W/O DOP COMPLETED DATE/TIME: 03/11/2018 11:45 am REASON FOR STUDY: RUQ tenderness K29.71 GASTRITIS, UNSPECIFIED, WITH BLEEDING COMPARISON: None. TECHNIQUE: Dynamic and static grayscale images acquired of the abdomen and recorded on PACS. Additio nal selected color Doppler and spectral images recorded. LIMITATIONS: None. FINDINGS: PANCREAS: No masses. Visualized pancreatic duct normal caliber. LIVER: No masses. Echotexture normal. LIVER VASCULATURE: Normal directional flow of the main portal vein and hepatic veins. GALLBLADDER: No stones. Normal wall thickness. No pericholecystic fluid. ULTRASOUND-DETECTED SCHMIDT'S SIGN: Negative. INTRAHEPATIC DUCTS AND COMMON DUCT: CBD and intrahepatic ducts normal caliber. No filling defects. INFERIOR VENA CAVA: Normal flow. AORTA: No aneurysm. RIGHT KIDNEY: Atrophy. Echogenic appearance. 6.2 cm in length. Cysts are present, largest measuri ng almost 2 cm. PERITONEAL AND RIGHT PLEURAL SPACE: No ascites or effusions. OTHER: No other significant findings. IMPRESSION: 1. No acute right upper quadrant abnormality. Gallbladder looks normal and is free of s tones. 2. Chronic appearing right renal changes. TECHNICAL DOCUMENTATION: JOB ID: [id number] [email or web address]- All Rights Reserved Reading location - IP/workstation name: [email or web address]
[2018-03-11] MEDS: FUROSEMIDE 40 MG TABLET PO ONE ×2 (15:17→17:19)
[2018-03-11] MEDS: METOPROLOL SUCCINATE 50 MG TAB.SR.24H PO SCH (17:19)
--- NOTE | 2018-03-11 18:30 | PDOC PROGRESS REPORT ---
Subjective Progress Note for:: 03/11/18 Subjective:: Angelina states she feels somewhat better today than she did on admission. She has not been having as much discomfort in her abdomen and has noted that she is not had as much bleeding as she had been having. She had very little blood present with her last stool. She denies any nausea or vomiting and has been able to take an oral diet without complication today. She is concerned about getting back on her regular medications and is requesting these today. Reason For Visit: LOWER GI BLEED Physical Exam Vital Signs: Temp Pulse Resp BP Pulse Ox 98.4 F 92 18 122/50 L 95 03/11/18 12:47 03/11/18 14:10 03/11/18 14:10 03/11/18 12:47 03/11/18 16:47 General appearance: PRESENT: no acute distress, cooperative, obese Head exam: PRESENT: atraumatic, normocephalic Eye exam: PRESENT: conjunctiva pink. ABSENT: nystagmus, scleral icterus Ear exam: PRESENT: normal external ear exam. ABSENT: bleeding, drainage Mouth exam: PRESENT: moist, neck supple, tongue midline Neck exam: PRESENT: full ROM. ABSENT: JVD, tracheal deviation Respiratory exam: PRESENT: clear to auscultation [place], symmetrical, unlabored Cardiovascular exam: PRESENT: irregular rhythm. ABSENT: bradycardia, clicks, diastolic murmur, gallop, rubs, systolic murmur, tachycardia Pulses: PRESENT: normal radial pulses, normal dorsalis pedis pul Vascular exam: PRESENT: normal capillary refill. ABSENT: pallor GI/Abdominal exam: PRESENT: normal bowel sounds, soft. ABSENT: distended, guarding, mass, tenderness Rectal exam: PRESENT: deferred Extremities exam: PRESENT: full ROM. ABSENT: clubbing, joint swelling, pedal edema, tenderness Musculoskeletal exam: PRESENT: normal inspection. ABSENT: deformity, dislocation, full ROM Neurological exam: PRESENT: alert, awake, oriented to person, oriented to place , oriented to time, oriented to situation, CN II-XII grossly intact. ABSENT: motor sensory deficit Psychiatric exam: PRESENT: appropriate affect, normal mood Skin exam: ABSENT: jaundice, rash, urticaria Results Impressions: Abdomen Ultrasound 03/10/18 00:00 IMPRESSION: 1. No acute right upper quadrant abnormality. Gallbladder looks normal and is free of stones. 2. Chronic appearing right renal changes. Chest X-Ray 03/10/18 10:44 IMPRESSION: DIFFUSE INTERSTITIAL PROMINENCE, POSSIBLY CHRONIC SCARRING ALTHOUGH MILD INTERSTITIAL EDEMA MAY BE PRESENT. Assessment & Plan - Diagnosis (1) Acute lower gastrointestinal bleeding Is this a current diagnosis for this admission?: Yes Plan: Patient will be managed with conservative therapy allowing time for her bleeding to resolve. Surgical involvement will be obtained if the bleeding worsens or does not resolve over short course of hospitalization. We will follow her daily CBC to make sure her hemoglobin and platelets are adequate. (2) Acute post-hemorrhagic anemia Is this a current diagnosis for this admission?: Yes Plan: Zabrina will be observed for possible worsening of her anemia due to hemorrhagic blood loss. This will be done by following her CBC on a daily basis. (3) COPD (chronic obstructive pulmonary disease) Qualifiers: COPD type: unspecified COPD Qualified Code(s): J44.9 - Chronic obstructive pulmonary disease, unspecified Is this a current diagnosis for this admission?: Yes Plan: All his home medications will be resumed as they have been controlling her symptoms well. (4) Coronary artery disease Qualifiers: Coronary Disease-Associated Artery/Lesion type: [place] artery Is this a current diagnosis for this admission?: Yes Plan: All his home medications will be resumed as they have been controlling her symptoms well. (5) Hyperlipidemia Qualifiers: Hyperlipidemia type: mixed hyperlipidemia Qualified Code(s): E78.2 - Mixed hyperlipidemia Is this a current diagnosis for this admission?: Yes Plan: All his home medications will be resumed as they have been controlling her symptoms well. (6) Hypertension Qualifiers: Hypertension type: essential hypertension Qualified Code(s): I10 - Essential (primary) hypertension Is this a current diagnosis for this admission?: Yes Plan: All his home medications will be resumed as they have been controlling her symptoms well. (7) Hypothyroidism Qualifiers: Hypothyroidism type: acquired Qualified Code(s): E03.9 - Hypothyroidism, unspecified Is this a current diagnosis for this admission?: Yes Plan: All his home medications will be resumed as they have been controlling her symptoms well. - Time Time Spent with patient: 35 or more minutes Medications reviewed and adjusted accordingly: Yes Anticipated discharge: Home Within: within 72 hours
--- NOTE | 2018-03-11 20:39 | PDOC CONSULTATION ---
Consultation Consult Date: 03/11/18 Attending physician:: BRODIE WILKES Consult reason:: I was asked to see the patient to supervise dialysis while here in the hospital. History of Present Illness Admission Date/PCP: 03/11/18 11:39 GIANNA BOURGEOIS MD History of Present Illness: EZRA SUERO is a 77 year old female known to me with history of ESRD on maintenance hemodialysis on Tuesdays and Saturdays only: History of multiple CVAs in the past with recurrent left-sided weakness; hypertension; history of recent GI bleed; and coronary artery disease who was admitted last night because of weakness and bright red blood per rectum. Patient has been on Eliquis and aspirin prior to admission which is currently stopped. She was previously on Xarelto but due to an episode of GI bleeding this was stopped a month ago. Patient noted bright red blood per rectum about 3 days ago last Friday which has progressed an increase about 2 days ago Friday. Because of this the patient seek medical attention and presented herself to the emergency room. Prior to that she was actually of Dr. Sen's office yesterday morning and was found to be very weak and unable to walk so Dr. Sen sent her over to emergency room. She admits abdominal discomfort and some nausea relieved by antiemetics without any real vomiting. She has very minimal low-grade temperature currently with chills which improved with blankets. Currently the patient is on dialysis and is tolerating dialysis well. She feels cold and chills so she is wrapped up in blankets. Patient's last dialysis was Friday and only usually dialyzes on Tuesdays and Saturdays. She admits some shortness of breath except especially on expiration. She otherwise denies any chest pains. She denies any unusual weakness especially on her left side where she has had weakness during previous CVA. Her appetite is decreased. She denies any other complaints otherwise. Past Medical History Cardiac Medical History: Reports: Coronary Artery Disease, Hyperlipidemia, Hypertension-primary, Myocardial Infarction - 2000, Other - Subclavian steal syndrome Pulmonary Medical History: Reports: Chronic Obstructive Pulmonary Disease (COPD) , Sleep Apnea Neurological Medical History: Reports: Ischemic CVA, Other - TIA, syncope, vertigo Endocrine Medical History: Reports: Hypothyroidism Renal/ Medical History: Reports: End Stage Renal Disease, Hyperphosphatemia, Metabolic Acidosis, Secondary Hyperparathyroidism, Other - FSGS true kidney biopsy Psychiatric Medical History: Denies: Depression Hematology Medical History: Reports Anemia of Chronic Kidney Disease Past Surgical History Past Surgical History: Reports: Appendectomy, Cardiac Catheterization, Cholecystectomy, Coronary Stent - August 2014, Dialysis Access Surgery AVF, Tubal Ligation, Vascular Surgery - PermCath placement for dialysis Social History Lives with: Spouse/Significant other Smoking Status: Former Smoker Number of Years Smokin Last Time Smoked: 2004 Frequency of Alcohol Use: None Hx Recreational Drug Use: No Drugs: None Hx Prescription Drug Abuse: No - Advance Directive Resuscitation Status: Full Code Family History Family History: CVA - Mother, Hypertension - Sister, Other - Kidney stone and moderate in sister Parental Family History Reviewed: Yes Children Family History Reviewed: Yes Sibling(s) Family History Reviewed.: Unknown Medication/Allergy Home Medications: Albuterol Sulfate [Proair HFA] 2 puff IN Q3 03/10/18 Apixaban [Eliquis 2.5 mg Tablet] 2.5 mg PO Q12 03/10/18 Aspirin [Ecotrin 81 mg EC Tablet] 81 mg PO DAILY 03/10/18 Calcium Acetate [Phoslo 667 mg Capsule] 667 mg PO Q8H 03/10/18 Cholecalciferol (Vitamin D3) [Vitamin D3 1000 Unit Tablet] 1 tab PO DAILY Dronedarone Hydrochloride [Multaq 400 mg Tablet] 400 mg PO Q12 03/10/18 Febuxostat [Uloric 40 mg Tablet] 40 mg PO DAILY 03/10/18 Fluticasone/Salmeterol [Advair 250-50 Diskus 28 dose] 1 puff IN Q12 03/10/18 Furosemide [Lasix 40 mg Tablet] 40 mg PO SUMOWETHFR@1000 03/10/18 Levothyroxine Sodium [Synthroid 0.112 mg Tablet] 1 tab PO DAILY 03/10/18 Metoprolol Succinate 50 mg PO QPM 03/10/18 Midodrine HCl 5 mg PO TUSA@1000 03/10/18 Nitroglycerin [Nitrostat 0.4 mg (1/150 Gr) Tabs 25/Bottle] 1 tab SL DAILYP PRN 03/10/18 Rosuvastatin Calcium [Crestor 10 mg Tablet] 10 mg PO QPM 03/10/18 Sennosides/Docusate Sodium [Senna-S Tablet] 1 tab PO QAM 03/10/18 Tiotropium [place] [Spiriva] 1 puff IN DAILY 03/10/18 Allergies/Adverse Reactions: Sulfa (Sulfonamide Antibiotics) Allergy (Severe, Verified 03/10/18 10:21) unsure pregabalin [From Lyrica] Adverse Reaction (Severe, Verified 03/10/18 10:21) irritable,weight gain Physical Exam Vital Signs: Temp Pulse Resp BP Pulse Ox 98.7 F 78 28 H 123/60 95 03/11/18 15:31 03/11/18 15:31 03/11/18 15:31 03/11/18 15:31 03/11/18 16:47 Intake & Output 03/10/18 03/11/18 03/12/18 06:59 06:59 06:59 Intake Total 659 Balance 659 Results Impressions: Abdomen Ultrasound 03/10/18 00:00 IMPRESSION: 1. No acute right upper quadrant abnormality. Gallbladder looks normal and is free of stones. 2. Chronic appearing right renal changes. Chest X-Ray 03/10/18 10:44 IMPRESSION: DIFFUSE INTERSTITIAL PROMINENCE, POSSIBLY CHRONIC SCARRING ALTHOUGH MILD INTERSTITIAL EDEMA MAY BE PRESENT.
[2018-03-11] MEDS ORDERED: EPOETIN ALFA 10,000 UNIT in SYRINGE, DISPOSABLE, 1 EACH IV PRN (21:15)
[2018-03-11] MEDS: DRONEDARONE HYDROCHLORIDE 400 MG TABLET PO SCH (23:41)
[2018-03-11] MEDS: ATORVASTATIN CALCIUM 20 MG TABLET PO SCH (23:42)
[2018-03-12] MEDS: SENNOSIDES/DOCUSATE 8.6-50 MG 1 EACH TABLET PO SCH (09:09)
[2018-03-12] MEDS: DRONEDARONE HYDROCHLORIDE 400 MG TABLET PO SCH ×2 (09:09→22:50)
[2018-03-12] MEDS: FLUTICASONE/SALMETEROL DISKUS 250-50 MCG/DOSE IH SCH ×2 (09:09→22:49)
[2018-03-12] MEDS: TIOTROPIUM BROMIDE DPI 5 CAP/KIT (18 MCG/CAP) IH SCH (09:09)
[2018-03-12] MEDS: FEBUXOSTAT 40 MG TABLET PO SCH (09:09)
[2018-03-12] MEDS: LEVOTHYROXINE SODIUM 0.112 MG TABLET PO SCH (09:09)
[2018-03-12] MEDS: FAMOTIDINE 20 MG TABLET PO SCH ×2 (09:09→22:50)
[2018-03-12] MEDS: CHOLECALCIFEROL (D3) 1,000 UNIT TABLET PO SCH (09:12)
[2018-03-12] MEDS ORDERED: FUROSEMIDE 40 MG TABLET PO SCH (10:00)
[2018-03-12] MEDS ORDERED: ALBUTEROL SULFATE HFA (90 MCG/PUFF) 200 PUFF/8.5 GM MDI IH SCH (15:00)
--- NOTE | 2018-03-12 18:06 | PDOC PROGRESS REPORT ---
Subjective Progress Note for:: 03/12/18 Subjective:: 03/11/18: Angelina states she feels somewhat better today than she did on admission. She has not been having as much discomfort in her abdomen and has noted that she is not had as much bleeding as she had been having. She had very little blood present with her last stool. She denies any nausea or vomiting and has been able to take an oral diet without complication today. She is concerned about getting back on her regular medications and is requesting these today. 03/12/18: Angelina again feels very well she thinks she is back to normal and would like to go home tomorrow. She has no abdominal pain and no further bleeding, her appetite is good and she denies dyspepsia or bloating. Reason For Visit: LOWER GI BLEED Physical Exam Vital Signs: Temp Pulse Resp BP Pulse Ox 98.5 F 66 16 84/43 L 93 03/12/18 15:37 03/12/18 15:37 03/12/18 15:37 03/12/18 15:37 03/12/18 15:37 Intake & Output 03/11/18 03/12/18 03/13/18 06:59 06:59 06:59 Intake Total 909.5 857 Output Total 2100 200 Balance -1190.5 657 Weight 76.4 kg General appearance: PRESENT: no acute distress, cooperative Head exam: PRESENT: atraumatic, normocephalic Eye exam: PRESENT: conjunctiva pink. ABSENT: nystagmus, scleral icterus Ear exam: PRESENT: normal external ear exam. ABSENT: drainage Mouth exam: PRESENT: neck supple, tongue midline Neck exam: ABSENT: thyromegaly, tracheal deviation Respiratory exam: PRESENT: clear to auscultation [place], symmetrical, unlabored Cardiovascular exam: PRESENT: irregular rhythm. ABSENT: bradycardia, clicks, gallop, rubs, tachycardia Pulses: PRESENT: normal radial pulses, normal dorsalis pedis pul Vascular exam: PRESENT: normal capillary refill. ABSENT: pallor GI/Abdominal exam: PRESENT: normal bowel sounds, soft. ABSENT: distended, tenderness Rectal exam: PRESENT: deferred Extremities exam: ABSENT: joint swelling, pedal edema Musculoskeletal exam: PRESENT: full ROM, normal inspection Neurological exam: PRESENT: alert, oriented to person, oriented to place, oriented to time, oriented to situation, CN II-XII grossly intact. ABSENT: motor sensory deficit Psychiatric exam: PRESENT: appropriate affect, normal mood Skin exam: ABSENT: jaundice, rash, urticaria Results Impressions: Abdomen Ultrasound 03/10/18 00:00 IMPRESSION: 1. No acute right upper quadrant abnormality. Gallbladder looks normal and is free of stones. 2. Chronic appearing right renal changes. Chest X-Ray 03/10/18 10:44 IMPRESSION: DIFFUSE INTERSTITIAL PROMINENCE, POSSIBLY CHRONIC SCARRING ALTHOUGH MILD INTERSTITIAL EDEMA MAY BE PRESENT. Assessment & Plan - Diagnosis (1) Acute lower gastrointestinal bleeding Is this a current diagnosis for this admission?: Yes Plan: Patient will be managed with conservative therapy allowing time for her bleeding to resolve. Surgical involvement will be obtained if the bleeding worsens or does not resolve over short course of hospitalization. We will follow her daily CBC to make sure her hemoglobin and platelets are adequate. (2) Acute post-hemorrhagic anemia Is this a current diagnosis for this admission?: Yes Plan: Zabrina will be observed for possible worsening of her anemia due to hemorrhagic blood loss. This will be done by following her CBC on a daily basis. (3) COPD (chronic obstructive pulmonary disease) Qualifiers: COPD type: unspecified COPD Qualified Code(s): J44.9 - Chronic obstructive pulmonary disease, unspecified Is this a current diagnosis for this admission?: Yes Plan: All her home medications will be resumed as they have been controlling her symptoms well. (4) Coronary artery disease Qualifiers: Coronary Disease-Associated Artery/Lesion type: [place] artery Is this a current diagnosis for this admission?: Yes Plan: All her home medications will be resumed as they have been controlling her symptoms well. (5) Hyperlipidemia Qualifiers: Hyperlipidemia type: mixed hyperlipidemia Qualified Code(s): E78.2 - Mixed hyperlipidemia Is this a current diagnosis for this admission?: Yes Plan: All her home medications will be resumed as they have been controlling her symptoms well. (6) Hypertension Qualifiers: Hypertension type: essential hypertension Qualified Code(s): I10 - Essential (primary) hypertension Is this a current diagnosis for this admission?: Yes Plan: All her home medications will be resumed as they have been controlling her symptoms well. (7) Hypothyroidism Qualifiers: Hypothyroidism type: acquired Qualified Code(s): E03.9 - Hypothyroidism, unspecified Is this a current diagnosis for this admission?: Yes Plan: All her home medications will be resumed as they have been controlling her symptoms well. - Time Time Spent with patient: 25-34 minutes Medications reviewed and adjusted accordingly: Yes Anticipated discharge: Home Within: within 24 hours
[2018-03-12] MEDS: METOPROLOL SUCCINATE 50 MG TAB.SR.24H PO SCH (22:38)
[2018-03-12] MEDS: ATORVASTATIN CALCIUM 20 MG TABLET PO SCH (22:50)
[2018-03-13] MEDS ORDERED: MIDODRINE HCL 5 MG TABLET PO SCH (10:00)
[2018-03-13] MEDS: FAMOTIDINE 20 MG TABLET PO SCH ×2 (10:26→23:05)
[2018-03-13] MEDS: SENNOSIDES/DOCUSATE 8.6-50 MG 1 EACH TABLET PO SCH (10:26)
[2018-03-13] MEDS: LEVOTHYROXINE SODIUM 0.112 MG TABLET PO SCH (10:26)
[2018-03-13] MEDS: DRONEDARONE HYDROCHLORIDE 400 MG TABLET PO SCH ×2 (10:26→23:04)
[2018-03-13] MEDS: CHOLECALCIFEROL (D3) 1,000 UNIT TABLET PO SCH (10:26)
[2018-03-13] MEDS: FEBUXOSTAT 40 MG TABLET PO SCH (10:26)
[2018-03-13] MEDS: TIOTROPIUM BROMIDE DPI 5 CAP/KIT (18 MCG/CAP) IH SCH (10:27)
[2018-03-13] MEDS: FLUTICASONE/SALMETEROL DISKUS 250-50 MCG/DOSE IH SCH ×2 (10:27→23:03)
[2018-03-13] MEDS: METOPROLOL SUCCINATE 50 MG TAB.SR.24H PO SCH (17:46)
[2018-03-13 18:40] LABS: HEMATOCRIT 28.2 % (36.0-47.0); HEMOGLOBIN 9.5 g/dL (12.0-15.5); MEAN CORPUSCULAR HEMOGLOBIN 31.4 pg (27.0-33.4); MEAN CORPUSCULAR HGB CONC 33.8 g/dL (32.0-36.0); MEAN CORPUSCULAR VOLUME 93 fl (80-97); PLATELET COUNT 273 10^3/uL (150-450); RED BLOOD COUNT 3.04 10^6/uL (3.72-5.28); RED CELL DISTRIBUTION WIDTH 14.5 % (11.5-14.0); WHITE BLOOD COUNT 5.7 10^3/uL (4.0-10.5)
[2018-03-13 19:06] LABS: ANION GAP 10 (5-19); BLOOD UREA NITROGEN 32 mg/dL (7-20); CALCIUM 8.6 mg/dL (8.4-10.2); CARBON DIOXIDE 27 mmol/L (22-30); CHLORIDE 100 mmol/L (98-107); GLUCOSE 128 mg/dL (75-110); POTASSIUM 3.7 mmol/L (3.6-5.0); SODIUM 136.5 mmol/L (137-145)
[2018-03-13] MEDS ORDERED: EPOETIN ALFA INJ 20000 UNIT/1 ML VIAL (RENAL) IV ONE (19:59)
--- NOTE | 2018-03-13 20:16 | PDOC PROGRESS REPORT ---
Subjective Progress Note for:: 03/13/18 Subjective:: I am seeing the patient on dialysis this evening. He tells me that she is no longer bleeding rectally. She is still off Eliquis but continues to take aspirin. She continues to require oxygen and desaturates below 88% if she is in room air. She admits that she is short of breath, slight cough but nothing major but denies any chest pains no fever. She is currently tolerating dialysis without any problems or complications. Reason For Visit: LOWER GI BLEED, ESRD Physical Exam Vital Signs: Temp Pulse Resp BP Pulse Ox 98.2 F 66 15 121/55 L 92 03/13/18 15:00 03/13/18 15:00 03/13/18 15:00 03/13/18 15:00 03/13/18 15:00 Intake & Output 03/12/18 03/13/18 03/14/18 06:59 06:59 06:59 Intake Total 909.5 1417 488 Output Total 2100 375 150 Balance -1190.5 1042 338 Weight 76.4 kg 76.4 kg Vitals during dialysis, blood pressure 132/67, heart rate of 66, oxygen saturation 91% at 2 L of oxygen per nasal cannula, blood flow rate of 450 mL/min , dialysate flow rate of 600 mL/min. Exam: General appearance: PRESENT: no acute distress, cooperative, well-developed, well-nourished Head exam: PRESENT: atraumatic, normocephalic Eye exam: PRESENT: conjunctiva slightly pale, PERRLA. ABSENT: scleral icterus Neck exam: ABSENT: JVD Respiratory exam: PRESENT: Diminished breath sounds. Bibasilar crackles ABSENT : Rhonchi, unlabored, wheezes Cardiovascular exam: PRESENT: Regular rate rhythm -+S1, +S2. ABSENT: diastolic murmur, systolic murmur GI/Abdominal exam: PRESENT: normal bowel sounds, soft. ABSENT: guarding, mass, tenderness Extremities exam: Trace bilateral lower extremity edema Neurological exam: PRESENT: alert, awake, oriented to person, place and time. Skin exam: PRESENT: dry, warm, Results Laboratory Results: 03/13/18 18:19 03/13/18 18:19 03/13/18 03/13/18 18:19 18:19 WBC 5.7 RBC 3.04 L Hgb 9.5 L Hct 28.2 L MCV 93 MCH 31.4 MCHC 33.8 RDW 14.5 H Plt Count 273 Sodium 136.5 L Potassium 3.7 Chloride 100 Carbon Dioxide 27 Anion Gap 10 BUN 32 H Creatinine 3.94 H Est GFR ( Amer) 13 L Est GFR (Non-Af Amer) 11 L Glucose 128 H Calcium 8.6 Impressions: Abdomen Ultrasound 03/10/18 00:00 IMPRESSION: 1. No acute right upper quadrant abnormality. Gallbladder looks normal and is free of stones. 2. Chronic appearing right renal changes. Chest X-Ray 03/10/18 10:44 IMPRESSION: DIFFUSE INTERSTITIAL PROMINENCE, POSSIBLY CHRONIC SCARRING ALTHOUGH MILD INTERSTITIAL EDEMA MAY BE PRESENT. Assessment & Plan - Diagnosis (1) End-stage renal disease on hemodialysis Is this a current diagnosis for this admission?: Yes Plan: We will do dialysis today for 3 hours, using the patient's AV fistula, with 3 potassium bath, blood flow rate of 450 mL per minute, dialysate flow rate of 6 and mL per minute, ultrafiltration 2-3 L as tolerated, no heparin and Procrit with 10,000 units during dialysis intravenously. Orders discussed with our dialysis nurse. Patient will be monitored throughout dialysis treatment monitoring her vital signs and dialysis treatment. (2) Gastrointestinal bleeding, lower Is this a current diagnosis for this admission?: Yes Plan: Clinically resolved. Currently only on aspirin and no Eliquis. (3) Acute post-hemorrhagic anemia Is this a current diagnosis for this admission?: Yes Plan: Stable. We will give Procrit during dialysis today. (4) HTN (hypertension) Qualifiers: Hypertension type: essential hypertension Qualified Code(s): I10 - Essential (primary) hypertension Is this a current diagnosis for this admission?: Yes Plan: Acceptable. She was given midodrine today. (5) History of stroke with residual deficit Is this a current diagnosis for this admission?: Yes Plan: Patient has history of atrial fibrillation and was recommended to have anticoagulation to prevent recurrent stroke which she has had for the last few months. Unfortunately she also has had a couple of episodes of lower GI bleeding due to anticoagulation. Patient refuses to restart her Eliquis. She has an appointment with Dr. Sinclair next week on the . She also has an appointment to cardiology on March 30. (6) Coronary artery disease Qualifiers: Coronary Disease-Associated Artery/Lesion type: [place] artery Is this a current diagnosis for this admission?: Yes - Time Time with patient: 15-25 minutes
[2018-03-13] MEDS ORDERED: EPOETIN ALFA 10,000 UNIT in SYRINGE, DISPOSABLE, 1 EACH IV ONE (21:30)
--- NOTE | 2018-03-13 22:54 | PDOC PROGRESS REPORT ---
Subjective Progress Note for:: 03/13/18 Subjective:: 03/11/18: Angelina states she feels somewhat better today than she did on admission. She has not been having as much discomfort in her abdomen and has noted that she is not had as much bleeding as she had been having. She had very little blood present with her last stool. She denies any nausea or vomiting and has been able to take an oral diet without complication today. She is concerned about getting back on her regular medications and is requesting these today. 03/12/18: Angelina again feels very well she thinks she is back to normal and would like to go home tomorrow. She has no abdominal pain and no further bleeding, her appetite is good and she denies dyspepsia or bloating. 03/13/18: Angelina is feeling well and wishes to be discharged but she continues to be mildly to moderately hypoxic when taken off supplemental O2. She has not required O2 at home in the past. Further efforts at withdrawing O2 support will be made this evening and if she can be discharged without O2 she will be leaving tonight, if she remains hypoxic arrangements for home O2 will need to be made tomorrow. Reason For Visit: LOWER GI BLEED Physical Exam Vital Signs: Temp Pulse Resp BP Pulse Ox 98.2 F 66 15 121/55 L 92 03/13/18 15:00 03/13/18 15:00 03/13/18 15:00 03/13/18 15:00 03/13/18 15:00 Intake & Output 03/12/18 03/13/18 03/14/18 06:59 06:59 06:59 Intake Total 909.5 1417 488.5 Output Total 2100 375 150 Balance -1190.5 1042 338.5 Weight 76.4 kg 76.4 kg General appearance: PRESENT: no acute distress, cooperative Head exam: PRESENT: atraumatic, normocephalic Eye exam: PRESENT: conjunctiva pink. ABSENT: scleral icterus Ear exam: PRESENT: normal external ear exam. ABSENT: drainage Neck exam: ABSENT: JVD, tracheal deviation Respiratory exam: PRESENT: clear to auscultation [place]. ABSENT: symmetrical, unlabored Cardiovascular exam: PRESENT: irregular rhythm. ABSENT: bradycardia, clicks, diastolic murmur, gallop, rubs, systolic murmur, tachycardia Pulses: PRESENT: normal radial pulses, normal dorsalis pedis pul Vascular exam: PRESENT: normal capillary refill. ABSENT: pallor GI/Abdominal exam: PRESENT: normal bowel sounds, soft. ABSENT: tenderness Extremities exam: ABSENT: joint swelling, pedal edema Musculoskeletal exam: PRESENT: full ROM, normal inspection Neurological exam: PRESENT: alert, awake, oriented to person, oriented to place , oriented to time, oriented to situation, CN II-XII grossly intact. ABSENT: motor sensory deficit Psychiatric exam: PRESENT: appropriate affect, normal mood Skin exam: ABSENT: jaundice, rash, urticaria Results Laboratory Results: 03/13/18 18:19 03/13/18 18:19 03/13/18 03/13/18 18:19 18:19 WBC 5.7 RBC 3.04 L Hgb 9.5 L Hct 28.2 L MCV 93 MCH 31.4 MCHC 33.8 RDW 14.5 H Plt Count 273 Sodium 136.5 L Potassium 3.7 Chloride 100 Carbon Dioxide 27 Anion Gap 10 BUN 32 H Creatinine 3.94 H Est GFR ( Amer) 13 L Est GFR (Non-Af Amer) 11 L Glucose 128 H Calcium 8.6 Impressions: Abdomen Ultrasound 03/10/18 00:00 IMPRESSION: 1. No acute right upper quadrant abnormality. Gallbladder looks normal and is free of stones. 2. Chronic appearing right renal changes. Chest X-Ray 03/10/18 10:44 IMPRESSION: DIFFUSE INTERSTITIAL PROMINENCE, POSSIBLY CHRONIC SCARRING ALTHOUGH MILD INTERSTITIAL EDEMA MAY BE PRESENT. Assessment & Plan - Diagnosis (1) Acute lower gastrointestinal bleeding Is this a current diagnosis for this admission?: Yes Plan: Patient will be managed with conservative therapy allowing time for her bleeding to resolve. Surgical involvement will be obtained if the bleeding worsens or does not resolve over short course of hospitalization. We will follow her daily CBC to make sure her hemoglobin and platelets are adequate. Stable at this point and ready for discharge. She will discuss anticoagulation therapy with her bariatric nurse (2) Acute post-hemorrhagic anemia Is this a current diagnosis for this admission?: Yes (3) COPD (chronic obstructive pulmonary disease) Qualifiers: COPD type: unspecified COPD Qualified Code(s): J44.9 - Chronic obstructive pulmonary disease, unspecified Is this a current diagnosis for this admission?: Yes Plan: All her home medications will be resumed as they have been controlling her symptoms well. (4) Coronary artery disease Qualifiers: Coronary Disease-Associated Artery/Lesion type: [place] artery Is this a current diagnosis for this admission?: Yes Plan: All her home medications will be resumed as they have been controlling her symptoms well. (5) Hyperlipidemia Qualifiers: Hyperlipidemia type: mixed hyperlipidemia Qualified Code(s): E78.2 - Mixed hyperlipidemia Is this a current diagnosis for this admission?: Yes Plan: All her home medications will be resumed as they have been controlling her symptoms well. (6) Hypertension Qualifiers: Hypertension type: essential hypertension Qualified Code(s): I10 - Essential (primary) hypertension Is this a current diagnosis for this admission?: Yes Plan: All her home medications will be resumed as they have been controlling her symptoms well. (7) Hypothyroidism Qualifiers: Hypothyroidism type: acquired Qualified Code(s): E03.9 - Hypothyroidism, unspecified Is this a current diagnosis for this admission?: Yes Plan: All her home medications will be resumed as they have been controlling her symptoms well. - Time Time Spent with patient: 35 or more minutes Anticipated discharge: Home Within: within 24 hours
[2018-03-13] MEDS: ATORVASTATIN CALCIUM 20 MG TABLET PO SCH (23:05)
[2018-03-14] MEDS ORDERED: MIDODRINE HCL 5 MG TABLET PO SCH (10:00)
[2018-03-14] MEDS ORDERED: METOCLOPRAMIDE HCL INJ/PF 10 MG/2 ML SDV IV PRN (10:04)
[2018-03-14] MEDS: FLUTICASONE/SALMETEROL DISKUS 250-50 MCG/DOSE IH SCH ×2 (10:16→22:08)
[2018-03-14] MEDS: TIOTROPIUM BROMIDE DPI 5 CAP/KIT (18 MCG/CAP) IH SCH (10:17)
[2018-03-14] MEDS: FAMOTIDINE 20 MG TABLET PO SCH ×2 (10:17→22:02)
[2018-03-14] MEDS: FEBUXOSTAT 40 MG TABLET PO SCH (10:18)
[2018-03-14] MEDS: CHOLECALCIFEROL (D3) 1,000 UNIT TABLET PO SCH (10:18)
[2018-03-14] MEDS: SENNOSIDES/DOCUSATE 8.6-50 MG 1 EACH TABLET PO SCH (10:18)
[2018-03-14] MEDS: DRONEDARONE HYDROCHLORIDE 400 MG TABLET PO SCH ×2 (10:18→22:02)
[2018-03-14] MEDS: LEVOTHYROXINE SODIUM 0.112 MG TABLET PO SCH (10:18)
--- NOTE | 2018-03-14 10:29 | PDOC PROGRESS REPORT ---
Subjective Progress Note for:: 03/14/18 Subjective:: 03/11/18: Angelina states she feels somewhat better today than she did on admission. She has not been having as much discomfort in her abdomen and has noted that she is not had as much bleeding as she had been having. She had very little blood present with her last stool. She denies any nausea or vomiting and has been able to take an oral diet without complication today. She is concerned about getting back on her regular medications and is requesting these today. 03/12/18: Angelina again feels very well she thinks she is back to normal and would like to go home tomorrow. She has no abdominal pain and no further bleeding, her appetite is good and she denies dyspepsia or bloating. 03/13/18: Angelina is feeling well and wishes to be discharged but she continues to be mildly to moderately hypoxic when taken off supplemental O2. She has not required O2 at home in the past. Further efforts at withdrawing O2 support will be made this evening and if she can be discharged without O2 she will be leaving tonight, if she remains hypoxic arrangements for home O2 will need to be made tomorrow. 03/14/18: Angelina states she does not feel as well today as she did yesterday. She has been having some nasal congestion and a cough productive of dia-looking sputum. She has not experienced any fever or chills subjectively. She continues to require significant supplemental oxygen at 2-3 L to maintain her O2 sat at 93 or greater. We have discussed the care plan and I have recommended a chest x-ray, ABGs, sputum culture with Gram stain and sensitivity , prophylactic antibiotics utilizing Levaquin 500 mg given after each dialysis session, and spending another day in the hospital to observe her progress. Reason For Visit: LOWER GI BLEED Physical Exam Vital Signs: Temp Pulse Resp BP Pulse Ox 98.2 F 67 15 115/59 L 91 L 03/14/18 07:13 03/14/18 07:13 03/14/18 07:13 03/14/18 07:13 03/14/18 07:13 Intake & Output 03/13/18 03/14/18 03/15/18 06:59 06:59 06:59 Intake Total 1417 874.5 Output Total 375 200 Balance 1042 674.5 Weight 76.4 kg 70.2 kg General appearance: PRESENT: no acute distress, cooperative Head exam: PRESENT: atraumatic, normocephalic Eye exam: PRESENT: conjunctiva pink. ABSENT: scleral icterus Ear exam: PRESENT: normal external ear exam. ABSENT: drainage Mouth exam: PRESENT: neck supple, tongue midline Neck exam: ABSENT: JVD, tracheal deviation Respiratory exam: PRESENT: rhonchi - Scattered in all lam, symmetrical, unlabored Cardiovascular exam: PRESENT: irregular rhythm. ABSENT: bradycardia, clicks, diastolic murmur, gallop, rubs, systolic murmur, tachycardia Vascular exam: PRESENT: normal capillary refill. ABSENT: pallor GI/Abdominal exam: PRESENT: normal bowel sounds, soft. ABSENT: tenderness Extremities exam: ABSENT: joint swelling, pedal edema Musculoskeletal exam: PRESENT: full ROM, normal inspection Neurological exam: PRESENT: oriented to person, oriented to place, oriented to time, oriented to situation, CN II-XII grossly intact. ABSENT: motor sensory deficit Psychiatric exam: PRESENT: appropriate affect, normal mood Skin exam: ABSENT: jaundice, rash, urticaria Results Laboratory Results: 03/13/18 18:19 03/13/18 18:19 03/13/18 03/13/18 18:19 18:19 WBC 5.7 RBC 3.04 L Hgb 9.5 L Hct 28.2 L MCV 93 MCH 31.4 MCHC 33.8 RDW 14.5 H Plt Count 273 Sodium 136.5 L Potassium 3.7 Chloride 100 Carbon Dioxide 27 Anion Gap 10 BUN 32 H Creatinine 3.94 H Est GFR ( Amer) 13 L Est GFR (Non-Af Amer) 11 L Glucose 128 H Calcium 8.6 Impressions: Abdomen Ultrasound 03/10/18 00:00 IMPRESSION: 1. No acute right upper quadrant abnormality. Gallbladder looks normal and is free of stones. 2. Chronic appearing right renal changes. Chest X-Ray 03/10/18 10:44 IMPRESSION: DIFFUSE INTERSTITIAL PROMINENCE, POSSIBLY CHRONIC SCARRING ALTHOUGH MILD INTERSTITIAL EDEMA MAY BE PRESENT. Assessment & Plan - Diagnosis (1) Acute lower gastrointestinal bleeding Is this a current diagnosis for this admission?: Yes Plan: Patient will be managed with conservative therapy allowing time for her bleeding to resolve. Surgical involvement will be obtained if the bleeding worsens or does not resolve over short course of hospitalization. We will follow her daily CBC to make sure her hemoglobin and platelets are adequate. Stable at this point and ready for discharge. She will discuss anticoagulation therapy with her wireless cellular technician (2) Acute post-hemorrhagic anemia Is this a current diagnosis for this admission?: Yes Plan: Zabrina will be observed for possible worsening of her anemia due to hemorrhagic blood loss. This will be done by following her CBC on a daily basis. (3) COPD (chronic obstructive pulmonary disease) Qualifiers: COPD type: unspecified COPD Qualified Code(s): J44.9 - Chronic obstructive pulmonary disease, unspecified Is this a current diagnosis for this admission?: Yes Plan: All her home medications will be resumed as they have been controlling her symptoms well. Today she developed upper respiratory symptoms which will be investigated utilizing a chest x-ray, ABGs, and sputum culture and sensitivity with Gram stain. Will initiate treatment with Levaquin 500 mg now and then we will repeat it after each dialysis session for the next 7 days. Plan to observe her course of the next 24 hours before making any decisions about discharge. (4) Coronary artery disease Qualifiers: Coronary Disease-Associated Artery/Lesion type: [place] artery Is this a current diagnosis for this admission?: Yes Plan: All her home medications will be resumed as they have been controlling her symptoms well. (5) Hyperlipidemia Qualifiers: Hyperlipidemia type: mixed hyperlipidemia Qualified Code(s): E78.2 - Mixed hyperlipidemia Is this a current diagnosis for this admission?: Yes Plan: All her home medications will be resumed as they have been controlling her symptoms well. (6) Hypertension Qualifiers: Hypertension type: essential hypertension Qualified Code(s): I10 - Essential (primary) hypertension Is this a current diagnosis for this admission?: Yes Plan: All her home medications will be resumed as they have been controlling her symptoms well. (7) Hypothyroidism Qualifiers: Hypothyroidism type: acquired Qualified Code(s): E03.9 - Hypothyroidism, unspecified Is this a current diagnosis for this admission?: Yes Plan: All her home medications will be resumed as they have been controlling her symptoms well. - Time Time Spent with patient: 35 or more minutes Medications reviewed and adjusted accordingly: Yes Anticipated discharge: Home Within: within 72 hours
[2018-03-14] MEDS: FUROSEMIDE 40 MG TABLET PO SCH (10:35)
[2018-03-14] MEDS ORDERED: LEVOFLOXACIN 500 MG TABLET PO ONE (11:30)
[2018-03-14 11:43] LABS: ARTERIAL BLOOD BASE EXCESS 7.2 mmol/L; ARTERIAL BLOOD H2CO3 1.25 mmol/L (1.05-1.35); ARTERIAL BLOOD HCO3 31.1 mmol/L (20-24); ARTERIAL BLOOD O2 SATURATION 94.7 % (94-98); ARTERIAL BLOOD PCO2 41.5 mmHg (35-45); ARTERIAL BLOOD PH 7.49 (7.35-7.45); ARTERIAL BLOOD PO2 67.2 mmHg (80-100); ARTERIAL BLOOD TOTAL CO2 32.4 mmol/L (21-25)
[2018-03-14 11:44] LABS: ARTERIAL BLOOD FIO2 3L
--- NOTE | 2018-03-14 12:01 | RADIOLOGY REPORT (SQ) ---
EXAM DESCRIPTION: CHEST 2 VIEWS COMPLETED DATE/TIME: 03/14/2018 11:44 am REASON FOR STUDY: Productive Cough with worsening hypoxia COMPARISON: 10/09/2017. EXAM PARAMETERS: NUMBER OF VIEWS: two views TECHNIQUE: Digital Frontal and Lateral radiographic views of the chest acquired. RADIATION DOSE: NA LIMITATIONS: none FINDINGS: LUNGS AND PLEURA: Diffuse bilateral interstitial changes most likely chronic. Bilateral p leural thickening or effusions. MEDIASTINUM AND HILAR STRUCTURES: No masses or contour abnormalities. HEART AND VASCULAR STRUCTURES: The heart is unchanged in size aortic atherosclerosis. The pulmonary vasculature is normal. BONES: No acute findings. HARDWARE: None in the chest. OTHER: No other significant finding. IMPRESSION: Chronic bilateral interstitial changes. Bilateral pleural thickening or effusions. TECHNICAL DOCUMENTATION: JOB ID: [id number] 2010 [employer]- All Rights Reserved Reading location - IP/workstation name: [email or web address]
[2018-03-14] MEDS: METOPROLOL SUCCINATE 50 MG TAB.SR.24H PO SCH (17:56)
[2018-03-14] MEDS: ATORVASTATIN CALCIUM 20 MG TABLET PO SCH (22:01)
[2018-03-15] MEDS: SENNOSIDES/DOCUSATE 8.6-50 MG 1 EACH TABLET PO SCH (09:39)
[2018-03-15] MEDS: FLUTICASONE/SALMETEROL DISKUS 250-50 MCG/DOSE IH SCH ×2 (09:39→22:07)
[2018-03-15] MEDS: DRONEDARONE HYDROCHLORIDE 400 MG TABLET PO SCH ×2 (09:39→22:07)
[2018-03-15] MEDS: FAMOTIDINE 20 MG TABLET PO SCH ×2 (09:39→22:07)
[2018-03-15] MEDS: CHOLECALCIFEROL (D3) 1,000 UNIT TABLET PO SCH (09:39)
[2018-03-15] MEDS: FEBUXOSTAT 40 MG TABLET PO SCH (09:39)
[2018-03-15] MEDS: LEVOTHYROXINE SODIUM 0.112 MG TABLET PO SCH (09:39)
[2018-03-15] MEDS: TIOTROPIUM BROMIDE DPI 5 CAP/KIT (18 MCG/CAP) IH SCH (09:40)
[2018-03-15] MEDS: FUROSEMIDE 40 MG TABLET PO SCH (09:45)
[2018-03-15] MEDS: METOPROLOL SUCCINATE 50 MG TAB.SR.24H PO SCH (17:40)
--- NOTE | 2018-03-15 20:31 | PDOC PROGRESS REPORT ---
Subjective Progress Note for:: 03/15/18 Subjective:: 03/11/18: Zabrina states she feels somewhat better today than she did on admission. She has not been having as much discomfort in her abdomen and has noted that she is not had as much bleeding as she had been having. She had very little blood present with her last stool. She denies any nausea or vomiting and has been able to take an oral diet without complication today. She is concerned about getting back on her regular medications and is requesting these today. 03/12/18: Zabrina again feels very well she thinks she is back to normal and would like to go home tomorrow. She has no abdominal pain and no further bleeding, her appetite is good and she denies dyspepsia or bloating. 03/13/18: Zabrina is feeling well and wishes to be discharged but she continues to be mildly to moderately hypoxic when taken off supplemental O2. She has not required O2 at home in the past. Further efforts at withdrawing O2 support will be made this evening and if she can be discharged without O2 she will be leaving tonight, if she remains hypoxic arrangements for home O2 will need to be made tomorrow. 03/14/18: Zabrina states she does not feel as well today as she did yesterday. She has been having some nasal congestion and a cough productive of dia-looking sputum. She has not experienced any fever or chills subjectively. She continues to require significant supplemental oxygen at 2-3 L to maintain her O2 sat at 93 or greater. We have discussed the care plan and I have recommended a chest x-ray, ABGs, sputum culture with Gram stain and sensitivity , prophylactic antibiotics utilizing Levaquin 500 mg given after each dialysis session, and spending another day in the hospital to observe her progress. 03/15/18: Zabrina offers that she is still feeling a little short of breath when she tries to stop using oxygen. She so far has not been unable to sustain any extended period of time off oxygen especially if it would her to involve any movement or activity at all. I explained to her that no significant findings are made on her evaluation with no evidence of pneumonia on the chest x-ray and arterial blood gases which revealed only hypoxia and her CBC showed no significant changes. Her exam was essentially unchanged today and she offers that she has had no fever or chills but does have a persistence of the cough she described yesterday with a small amount of purulent looking mucus produced with each expectoration. She has not been having any chest pain or abdominal pain and she has had no further rectal bleeding. She is agreeable to staying 1 more night and setting up home oxygen on Friday. Reason For Visit: LOWER GI BLEED Physical Exam Vital Signs: Temp Pulse Resp BP Pulse Ox 98.1 F 69 18 97/53 L 95 03/15/18 04:22 03/15/18 19:00 03/15/18 04:22 03/15/18 04:22 03/15/18 04:22 Intake & Output 03/14/18 03/15/18 03/16/18 06:59 06:59 06:59 Intake Total 874.5 882 549 Output Total 200 0 Balance 674.5 882 549 Weight 70.2 kg 72.1 kg General appearance: PRESENT: no acute distress, cooperative Head exam: PRESENT: atraumatic, normocephalic Eye exam: PRESENT: conjunctiva pink. ABSENT: conjunctival injection Ear exam: PRESENT: normal external ear exam. ABSENT: drainage Mouth exam: PRESENT: moist, neck supple Neck exam: ABSENT: thyromegaly, tracheal deviation Respiratory exam: PRESENT: clear to auscultation ashanti, symmetrical, unlabored Cardiovascular exam: PRESENT: irregular rhythm. ABSENT: bradycardia, clicks, diastolic murmur, gallop, rubs, systolic murmur, tachycardia Pulses: PRESENT: normal radial pulses Vascular exam: PRESENT: normal capillary refill. ABSENT: pallor GI/Abdominal exam: PRESENT: normal bowel sounds, soft Extremities exam: ABSENT: joint swelling, pedal edema Musculoskeletal exam: PRESENT: full ROM, normal inspection Neurological exam: PRESENT: alert, awake, oriented to person, oriented to place , oriented to time, oriented to situation, CN II-XII grossly intact. ABSENT: motor sensory deficit Psychiatric exam: PRESENT: appropriate affect, normal mood Skin exam: ABSENT: jaundice, rash, urticaria Results Laboratory Results: 03/13/18 18:19 03/13/18 18:19 Impressions: Abdomen Ultrasound 03/10/18 00:00 IMPRESSION: 1. No acute right upper quadrant abnormality. Gallbladder looks normal and is free of stones. 2. Chronic appearing right renal changes. Chest X-Ray 03/14/18 00:00 IMPRESSION: Chronic bilateral interstitial changes. Bilateral pleural thickening or effusions. Assessment & Plan - Diagnosis (1) Acute lower gastrointestinal bleeding Is this a current diagnosis for this admission?: Yes Plan: Patient was managed with conservative therapy allowing time for her bleeding to resolve. Her bleeding did resolve over the course of 1-2 days. (2) Acute post-hemorrhagic anemia Is this a current diagnosis for this admission?: Yes Plan: Zabrina will be observed for possible worsening of her anemia due to hemorrhagic blood loss. This will be done by following her CBC on an intermittent basis when she has dialysis. (3) COPD (chronic obstructive pulmonary disease) Qualifiers: COPD type: unspecified COPD Qualified Code(s): J44.9 - Chronic obstructive pulmonary disease, unspecified Is this a current diagnosis for this admission?: Yes Plan: All her home medications will be resumed as they have been controlling her symptoms well. A chest x-ray, ABGs, and sputum culture and sensitivity with Gram stain were done, with no dramatic results that would explain her respiratory status change. Continue Levaquin 500 mg now and then we will repeat it after each dialysis session for the next 3 sessions. Plan to observe her course of the next 24 hours while planning discharge. (4) Coronary artery disease Qualifiers: Coronary Disease-Associated Artery/Lesion type: mechoopda artery Is this a current diagnosis for this admission?: Yes Plan: All her home medications will be resumed as they have been controlling her symptoms well. (5) Hyperlipidemia Qualifiers: Hyperlipidemia type: mixed hyperlipidemia Qualified Code(s): E78.2 - Mixed hyperlipidemia Is this a current diagnosis for this admission?: Yes Plan: All her home medications will be resumed as they have been controlling her symptoms well. (6) Hypertension Qualifiers: Hypertension type: essential hypertension Qualified Code(s): I10 - Essential (primary) hypertension Is this a current diagnosis for this admission?: Yes Plan: All her home medications will be resumed as they have been controlling her symptoms well. (7) Hypothyroidism Qualifiers: Hypothyroidism type: acquired Qualified Code(s): E03.9 - Hypothyroidism, unspecified Is this a current diagnosis for this admission?: Yes Plan: All her home medications will be resumed as they have been controlling her symptoms well. - Time Time Spent with patient: 25-34 minutes Medications reviewed and adjusted accordingly: Yes Anticipated discharge: Home
[2018-03-15] MEDS: BISACODYL 5 MG TABEC PO SCH (22:07)
[2018-03-15] MEDS: ATORVASTATIN CALCIUM 20 MG TABLET PO SCH (22:07)
[2018-03-16] MEDS ORDERED: NORMAL SALINE 1000 ML 1,000 ML IV PRN (05:00)
[2018-03-16] MEDS ORDERED: EPOETIN ALFA INJ 20000 UNIT/1 ML VIAL (RENAL) IV PRN (05:00)
[2018-03-16 05:40] LABS: ABSOLUTE BASOPHILS # (AUTO) 0.1 10^3/uL (0.0-0.2); ABSOLUTE EOSINOPHILS # (AUTO) 0.2 10^3/uL (0.0-0.6); ABSOLUTE LYMPHOCYTES (AUTO) 0.9 10^3/uL (0.5-4.7); ABSOLUTE MONOCYTES (AUTO) 0.6 10^3/uL (0.1-1.4); ABSOLUTE NEUT (AUTO) 3.8 10^3/uL (1.7-8.2); BASOPHILS % (AUTO) 1.2 % (0-2); EOSINOPHILS % (AUTO) 3.5 % (0-6); HEMATOCRIT 29.9 % (36.0-47.0); HEMOGLOBIN 10.3 g/dL (12.0-15.5); LYMPHOCYTES % (AUTO) 16.5 % (13-45); MEAN CORPUSCULAR HEMOGLOBIN 31.1 pg (27.0-33.4); MEAN CORPUSCULAR HGB CONC 34.4 g/dL (32.0-36.0); MEAN CORPUSCULAR VOLUME 90 fl (80-97); MONOCYTES % (AUTO) 10.1 % (3-13); PLATELET COUNT 288 10^3/uL (150-450); RED BLOOD COUNT 3.31 10^6/uL (3.72-5.28); RED CELL DISTRIBUTION WIDTH 14.7 % (11.5-14.0); SEGMENTED NEUTROPHILS % (AUTO) 68.7 % (42-78); TOTAL CELLS COUNTED % (AUTO) 100 %; WHITE BLOOD COUNT 5.5 10^3/uL (4.0-10.5)
[2018-03-16 06:04] LABS: ANION GAP 10 (5-19); BLOOD UREA NITROGEN 30 mg/dL (7-20); CALCIUM 9.4 mg/dL (8.4-10.2); CARBON DIOXIDE 25 mmol/L (22-30); CHLORIDE 101 mmol/L (98-107); GLUCOSE 83 mg/dL (75-110); POTASSIUM 4.6 mmol/L (3.6-5.0); SODIUM 135.9 mmol/L (137-145)
[2018-03-16] MEDS: FAMOTIDINE 20 MG TABLET PO SCH (09:16)
[2018-03-16] MEDS: SENNOSIDES/DOCUSATE 8.6-50 MG 1 EACH TABLET PO SCH (09:16)
[2018-03-16] MEDS: BISACODYL 5 MG TABEC PO SCH (09:16)
[2018-03-16] MEDS ORDERED: EPOETIN ALFA 5,000 UNIT in SYRINGE, DISPOSABLE, 1 EACH IV PRN (10:54)
[2018-03-16] MEDS ORDERED: ACETAMINOPHEN 325 MG TABLET PO PRN (13:24)
[2018-03-16] MEDS: FUROSEMIDE 40 MG TABLET PO SCH (15:36)
[2018-03-16] MEDS: DRONEDARONE HYDROCHLORIDE 400 MG TABLET PO SCH (15:44)
[2018-03-16] MEDS: FEBUXOSTAT 40 MG TABLET PO SCH (15:44)
[2018-03-16] MEDS: CHOLECALCIFEROL (D3) 1,000 UNIT TABLET PO SCH (15:44)
[2018-03-16] MEDS: FLUTICASONE/SALMETEROL DISKUS 250-50 MCG/DOSE IH SCH (15:44)
[2018-03-16] MEDS: LEVOTHYROXINE SODIUM 0.112 MG TABLET PO SCH (15:44)
[2018-03-16] MEDS ORDERED: LEVOFLOXACIN 250 MG TABLET PO ONE (16:00)
[2018-03-16 16:44] VITALS: BP 100/54
--- NOTE | 2018-03-16 19:26 | PDOC DISCHARGE SUMMARY ---
General - Admit/Disc Date/PCP Admission Date/Primary Care Provider: 03/11/18 11:39 GIANNA BOURGEOIS MD Discharge Date: 03/16/18 - Discharge Diagnosis (1) Acute lower gastrointestinal bleeding Is this a current diagnosis for this admission?: Yes Summary: Fainas lower GI bleeding resolved spontaneously over the first 24-48 hours of her hospital course. (2) Acute post-hemorrhagic anemia Is this a current diagnosis for this admission?: Yes Summary: Ezra did have a significant anemia requiring transfusion after her lower GI bleeding. Her hemoglobin has remained stable since her transfusion. (3) COPD (chronic obstructive pulmonary disease) Is this a current diagnosis for this admission?: Yes Summary: I have considered with her current problem with dyspnea and hypoxia may be an exacerbation of her chronic obstructive pulmonary disease but she does not appear to have any significant bronchospasm and has had only a minimal cough productive of small amounts of sputum. She has been started on an antibiotic utilizing Levaquin after her dialysis sessions but this has not resulted in a dramatic response. Further evaluation of her hypoxia and dyspnea occurring as an acute on chronic respiratory failure with hypoxia. (4) Coronary artery disease Is this a current diagnosis for this admission?: Yes Summary: Fainas coronary artery disease has been essentially stable throughout her hospital course she has been continued on her current home medications. (5) Hyperlipidemia Is this a current diagnosis for this admission?: Yes Summary: Fainas hyperlipidemia has been stable throughout her hospital course she has been maintained on her usual medications. (6) Hypertension Is this a current diagnosis for this admission?: Yes Summary: Fainas hypertension is been well controlled with her usual medications throughout her hospital course. (7) Hypothyroidism Is this a current diagnosis for this admission?: Yes Summary: Fainas hypothyroidism has remained well controlled on her usual medications. - Additional Information Resuscitation Status: Full Code Discharge Diet: Cardiac Discharge Activity: Activity As Tolerated, Balance Activity w/Rest, Slowly Increase Activity Home Medications: Albuterol Sulfate [Proair HFA] 2 puff IN Q3 03/10/18 Apixaban [Eliquis 2.5 mg Tablet] 2.5 mg PO Q12 03/10/18 Aspirin [Ecotrin 81 mg EC Tablet] 81 mg PO DAILY 03/10/18 Calcium Acetate [Phoslo 667 mg Capsule] 667 mg PO Q8H 03/10/18 Cholecalciferol (Vitamin D3) [Vitamin D3 1000 Unit Tablet] 1 tab PO DAILY Dronedarone Hydrochloride [Multaq 400 mg Tablet] 400 mg PO Q12 03/10/18 Febuxostat [Uloric 40 mg Tablet] 40 mg PO DAILY 03/10/18 Fluticasone/Salmeterol [Advair 250-50 Diskus 28 dose] 1 puff IN Q12 03/10/18 Furosemide [Lasix 40 mg Tablet] 40 mg PO SUMOWETHFR@1000 03/10/18 Levothyroxine Sodium [Synthroid 0.112 mg Tablet] 1 tab PO DAILY 03/10/18 Metoprolol Succinate 50 mg PO QPM 03/10/18 Midodrine HCl 5 mg PO TUSA@1000 03/10/18 Nitroglycerin [Nitrostat 0.4 mg (1/150 Gr) Tabs 25/Bottle] 1 tab SL DAILYP PRN 03/10/18 Rosuvastatin Calcium [Crestor 10 mg Tablet] 10 mg PO QPM 03/10/18 Sennosides/Docusate Sodium [Senna-S Tablet] 1 tab PO QAM 03/10/18 Tiotropium [place] [Spiriva] 1 puff IN DAILY 03/10/18 History of Present Illness Patient complains of: Rectal bleeding History of Present Illness: EZRA SUERO is a 77 year old female with a past medical history of COPD, hypertension, previous CVA, MS status post stent, atrial fibrillation, and end- stage renal disease with dialysis 3 times a week, who presented to the ED sent by her office asst with complaints of weakness and lower GI bleed. Patient has a history of lower GI bleed and was seen at [facility] about a month ago for similar reasons and had a colonoscopy done with a found some polyps and diverticulosis. She had presented to our hospital in December for similar GI bleed at that time and had a colonoscopy done which showed again diverticulosis and telangiectasias. At that point in December she was transfused blood. She has a history of coronary artery disease, A. fib and CVA for which she was on Eliquis, Xarelto and aspirin as per patient. A month ago after her episode of GI bleed Xarelto was stopped and she was continued on Eliquis and aspirin. But then she had this GI bleed at [facility] and these medications were stopped. She ended up seeing her office asst who restarted her Eliquis about a week ago and 2 days ago she started to feel weak and noted blood in her stool. Patient states she has a bowel movement every 1-2 days. States that she noted bright red blood with her bowel movements. She does admit to hemorrhoids. In the ED she had heme positive bright red blood in her stool. She states she feels a little weak but otherwise she is okay. She denies abdominal pain, nausea/vomiting, chest pain and acute shortness of breath. She does have a history of COPD and does wheeze all the time. She denies any changes in medications, diet or lifestyle modification in the last 2-3 days. She went to her office asst's office this morning for a scheduled EKG for her A. fib and when she mentioned that she was having blood per rectum she was sent to the hospital for evaluation. female Hospital Course Hospital Course: 03/11/18: Ezra states she feels somewhat better today than she did on admission. She has not been having as much discomfort in her abdomen and has noted that she is not had as much bleeding as she had been having. She had very little blood present with her last stool. She denies any nausea or vomiting and has been able to take an oral diet without complication today. She is concerned about getting back on her regular medications and is requesting these today. 03/12/18: Ezra again feels very well she thinks she is back to normal and would like to go home tomorrow. She has no abdominal pain and no further bleeding, her appetite is good and she denies dyspepsia or bloating. 03/13/18: Ezra is feeling well and wishes to be discharged but she continues to be mildly to moderately hypoxic when taken off supplemental O2. She has not required O2 at home in the past. Further efforts at withdrawing O2 support will be made this evening and if she can be discharged without O2 she will be leaving tonight, if she remains hypoxic arrangements for home O2 will need to be made tomorrow. 03/14/18: Ezra states she does not feel as well today as she did yesterday. She has been having some nasal congestion and a cough productive of dia-looking sputum. She has not experienced any fever or chills subjectively. She continues to require significant supplemental oxygen at 2-3 L to maintain her O2 sat at 93 or greater. We have discussed the care plan and I have recommended a chest x-ray, ABGs, sputum culture with Gram stain and sensitivity , prophylactic antibiotics utilizing Levaquin 500 mg given after each dialysis session, and spending another day in the hospital to observe her progress. 03/15/18: Ezra offers that she is still feeling a little short of breath when she tries to stop using oxygen. She so far has not been unable to sustain any extended period of time off oxygen especially if it would her to involve any movement or activity at all. I explained to her that no significant findings are made on her evaluation with no evidence of pneumonia on the chest x-ray and arterial blood gases which revealed only hypoxia and her CBC showed no significant changes. Her exam was essentially unchanged today and she offers that she has had no fever or chills but does have a persistence of the cough she described yesterday with a small amount of purulent looking mucus produced with each expectoration. She has not been having any chest pain or abdominal pain and she has had no further rectal bleeding. She is agreeable to staying 1 more night and setting up home oxygen on Friday. 03/16/18: Ezra states that she is feeling about the same today, she continues to have difficulty breathing when she is off O2. She seems to quite well and she is receiving supplemental oxygen at about 3 L/min. Again we have discussed the we have looked at the variety of significant possibilities to cause her dyspnea and hypoxia during this hospital course. I am not identified a causative problem and as such I have asked her to follow-up with her office asst tomorrow and her ledger clerk next week. I have spoken with her ledger clerk letting him know that she will need to be seen by him next week and her cardiology appointment is already been made. She denies any acute changes today and she did have her dialysis done. She will be discharged home in stable condition with home oxygen and home health. Physical Exam Vital Signs: Temp Pulse Resp BP Pulse Ox 97.8 F 67 22 H 100/54 L 96 03/16/18 15:53 03/16/18 15:53 03/16/18 15:53 03/16/18 15:53 03/16/18 15:53 Intake & Output 03/15/18 03/16/18 03/17/18 06:59 06:59 06:59 Intake Total 882 1209 0.25 Output Total 0 1000 Balance 882 1209 -999.75 Weight 72.1 kg 69.6 kg General appearance: PRESENT: no acute distress, cooperative Head exam: PRESENT: atraumatic, normocephalic Eye exam: PRESENT: conjunctiva pink. ABSENT: conjunctival injection Ear exam: PRESENT: normal external ear exam. ABSENT: drainage Mouth exam: PRESENT: moist, neck supple, tongue midline Neck exam: ABSENT: thyromegaly, tracheal deviation Respiratory exam: PRESENT: clear to auscultation ashanti, symmetrical, unlabored Cardiovascular exam: PRESENT: RRR. ABSENT: clicks, gallop, rubs Vascular exam: PRESENT: normal capillary refill. ABSENT: pallor GI/Abdominal exam: PRESENT: normal bowel sounds, soft Extremities exam: ABSENT: joint swelling, pedal edema Musculoskeletal exam: PRESENT: full ROM, normal inspection Neurological exam: PRESENT: alert, awake, oriented to person, oriented to place , oriented to time, oriented to situation, CN II-XII grossly intact. ABSENT: motor sensory deficit Psychiatric exam: PRESENT: appropriate affect, normal mood Skin exam: ABSENT: jaundice, rash, urticaria Results Laboratory Results: 03/16/18 05:00 03/16/18 05:00 03/16/18 03/16/18 05:00 05:00 WBC 5.5 RBC 3.31 L Hgb 10.3 L Hct 29.9 L MCV 90 MCH 31.1 MCHC 34.4 RDW 14.7 H Plt Count 288 Seg Neutrophils % 68.7 Lymphocytes % 16.5 Monocytes % 10.1 Eosinophils % 3.5 Basophils % 1.2 Absolute Neutrophils 3.8 Absolute Lymphocytes 0.9 Absolute Monocytes 0.6 Absolute Eosinophils 0.2 Absolute Basophils 0.1 Sodium 135.9 L Potassium 4.6 Chloride 101 Carbon Dioxide 25 Anion Gap 10 BUN 30 H Creatinine 4.72 H Est GFR ( Amer) 11 L Est GFR (Non-Af Amer) 9 L Glucose 83 Calcium 9.4 Impressions: Abdomen Ultrasound 03/10/18 00:00 IMPRESSION: 1. No acute right upper quadrant abnormality. Gallbladder looks normal and is free of stones. 2. Chronic appearing right renal changes. Chest X-Ray 03/14/18 00:00 IMPRESSION: Chronic bilateral interstitial changes. Bilateral pleural thickening or effusions. Qualifiers - * PATIENT BEING DISCHARGED WITH ANY OF THE FOLLOWING DIAGNOSIS: No Plan Discharge Plan: Discharge to home with home health in stable condition. Home O2 will be started at 3 L/min. Time Spent: Greater than 30 Minutes
--- NOTE | 2018-03-16 19:28 | PDOC PROGRESS REPORT ---
Subjective Progress Note for:: 03/16/18 Subjective:: I saw the patient during dialysis at around 8:30 AM. Patient continues to desaturate over the weekend so she was kept to arrange home oxygen. Otherwise patient wanted to go home. He continues to have some cough with rest colored sputum. He has some shortness of breath especially minimal exertion without oxygen. She denies any fever. She said she is otherwise feeling okay. During dialysis today patient was also hypotensive despite midodrine. Very limited ultrafiltration was obtained today. Reason For Visit: LOWER GI BLEED Physical Exam Vital Signs: Temp Pulse Resp BP Pulse Ox 97.8 F 67 22 H 100/54 L 96 03/16/18 15:53 03/16/18 15:53 03/16/18 15:53 03/16/18 15:53 03/16/18 15:53 Intake & Output 03/15/18 03/16/18 03/17/18 06:59 06:59 06:59 Intake Total 882 1209 0.25 Output Total 0 1000 Balance 882 1209 -999.75 Weight 72.1 kg 69.6 kg Vitals during dialysis. Blood pressure 100/57, temperature 97.3, heart rate 64 , oxygen saturation 98% at 3 L per nasal cannula. Exam: General appearance: PRESENT: no acute distress, cooperative, well-developed, well-nourished Head exam: PRESENT: atraumatic, normocephalic Eye exam: PRESENT: conjunctiva slightly pale, PERRLA. ABSENT: scleral icterus Neck exam: ABSENT: JVD Respiratory exam: PRESENT: Diminished breath sounds. ABSENT: crackles, rales, rhonchi, unlabored, wheezes Cardiovascular exam: PRESENT: Regular rate rhythm -+S1, +S2. ABSENT: diastolic murmur, systolic murmur GI/Abdominal exam: PRESENT: normal bowel sounds, soft. ABSENT: guarding, mass, tenderness Extremities exam: ABSENT: No edema Neurological exam: PRESENT: alert, awake, oriented to person, place and time. Skin exam: PRESENT: dry, warm, Results Laboratory Results: 03/16/18 05:00 03/16/18 05:00 03/16/18 03/16/18 05:00 05:00 WBC 5.5 RBC 3.31 L Hgb 10.3 L Hct 29.9 L MCV 90 MCH 31.1 MCHC 34.4 RDW 14.7 H Plt Count 288 Seg Neutrophils % 68.7 Lymphocytes % 16.5 Monocytes % 10.1 Eosinophils % 3.5 Basophils % 1.2 Absolute Neutrophils 3.8 Absolute Lymphocytes 0.9 Absolute Monocytes 0.6 Absolute Eosinophils 0.2 Absolute Basophils 0.1 Sodium 135.9 L Potassium 4.6 Chloride 101 Carbon Dioxide 25 Anion Gap 10 BUN 30 H Creatinine 4.72 H Est GFR ( Amer) 11 L Est GFR (Non-Af Amer) 9 L Glucose 83 Calcium 9.4 Impressions: Abdomen Ultrasound 03/10/18 00:00 IMPRESSION: 1. No acute right upper quadrant abnormality. Gallbladder looks normal and is free of stones. 2. Chronic appearing right renal changes. Chest X-Ray 03/14/18 00:00 IMPRESSION: Chronic bilateral interstitial changes. Bilateral pleural thickening or effusions. Assessment & Plan - Diagnosis (1) End-stage renal disease on hemodialysis Is this a current diagnosis for this admission?: Yes Plan: We did dialysis today for 3 hours, using the patient's AV for, with 2 potassium bath, blood flow rate of 400 mL per minute, dialysate flow rate of 6 mL per minute, ultrafiltration only 1 L which she tolerated, no and Procrit with 5000 units during dialysis intravenously. Patient was monitored throughout dialysis treatment. (2) Gastrointestinal bleeding, lower Is this a current diagnosis for this admission?: Yes Plan: Clinically resolved. Currently only on aspirin and no Eliquis. (3) Acute post-hemorrhagic anemia Is this a current diagnosis for this admission?: Yes Plan: Stable. We will give Procrit during dialysis today. (4) HTN (hypertension) Qualifiers: Qualified Code(s): I10 - Essential (primary) hypertension Is this a current diagnosis for this admission?: Yes Plan: She was given midodrine today. (5) History of stroke with residual deficit Is this a current diagnosis for this admission?: Yes Plan: Patient has history of atrial fibrillation and was recommended to have anticoagulation to prevent recurrent stroke which she has had for the last few months. Unfortunately she also has had a couple of episodes of lower GI bleeding due to anticoagulation. Patient refuses to restart her Eliquis. She has an appointment with Dr. Sinclair next week on the . She also has an appointment to cardiology on March 30. (6) Coronary artery disease Is this a current diagnosis for this admission?: Yes - Notes Notes: Patient is discharged today her arm next dialysis is regularly scheduled on Friday. - Time Time with patient: 15-25 minutes
[2018-03-16] MEDS ORDERED: FAMOTIDINE 20 MG TABLET PO SCH (22:00)
== END 2018-03-16 16:15 | disposition home or self-care (01) | DRG 377 ==
LOC: ER 10:14 → EH 14:05 → INTOOBSV 14:05 → OBSVTOIN 14:05 → 5 18:31 → OBSVTOIN 03-11 11:39
PROVIDERS: ADMIT Internal Medicine; ATTEND Internal Medicine
PROC: 5A1D70Z Performance of Urinary Filtration, Intermittent, Less than 6 Hours Per Day (ICD-10-PCS; principal; 2018-03-11)
PROC: 5A1D70Z Performance of Urinary Filtration, Intermittent, Less than 6 Hours Per Day (ICD-10-PCS; 2018-03-13)
PROC: 5A1D70Z Performance of Urinary Filtration, Intermittent, Less than 6 Hours Per Day (ICD-10-PCS; 2018-03-16)
DX: K92.1 Melena (principal); N18.6 End stage renal disease; J96.21 Acute and chronic respiratory failure with hypoxia; D62 Acute posthemorrhagic anemia; I12.0 Hypertensive chronic kidney disease with stage 5 chronic kidney disease or end stage renal disease; D68.32 Hemorrhagic disorder due to extrinsic circulating anticoagulants; I48.91 Unspecified atrial fibrillation; J44.9 Chronic obstructive pulmonary disease, unspecified; I25.10 Atherosclerotic heart disease of native coronary artery without angina pectoris; T45.515A Adverse effect of anticoagulants, initial encounter; E78.5 Hyperlipidemia, unspecified; E03.9 Hypothyroidism, unspecified; Z79.82 Long term (current) use of aspirin; Z79.899 Other long term (current) drug therapy; Z79.51 Long term (current) use of inhaled steroids; Z86.73 Personal history of transient ischemic attack (TIA), and cerebral infarction without residual deficits; I25.2 Old myocardial infarction; Z99.2 Dependence on renal dialysis; Z79.01 Long term (current) use of anticoagulants; Z90.49 Acquired absence of other specified parts of digestive tract; Z88.2 Allergy status to sulfonamides; Z88.8 Allergy status to other drugs, medicaments and biological substances; Z87.891 Personal history of nicotine dependence; Z99.81 Dependence on supplemental oxygen
CPT/HCPCS: 36415; 36600; 71045; 71046; 76705; 80048; 80053; 81001; 82272; 82550; 82803; 84484; 85025; 85027; 85610; 85730; 86850; 86900; 86901; 87070; 87205; 93005; 93010; 94640; 99285; G0378; G8978-GP; G8979-GP; G8987-GO; G8988-GO; G8989-GO; J2405; J3490; J7620; Q4081

== ENCOUNTER 2018-04-13 09:20 | Day surgery (SDC) | payer MEDICARE, OTHER ==
[~2018-04-13 09:20] MED LIST: DIAZEPAM 5 MG TABLET PO PRN
[2018-04-13] MEDS ORDERED: DIAZEPAM 5 MG TABLET ONE (10:31)
[2018-04-13 10:44] LABS: HEMOGLOBIN 10.9 g/dL (12.0-15.5); MEAN CORPUSCULAR HGB CONC 34.1 g/dL (32.0-36.0); MEAN CORPUSCULAR VOLUME 88 fl (80-97); PLATELET COUNT 243 10^3/uL (150-450); RED BLOOD COUNT 3.62 10^6/uL (3.72-5.28); RED CELL DISTRIBUTION WIDTH 15.4 % (11.5-14.0); WHITE BLOOD COUNT 5.3 10^3/uL (4.0-10.5)
[2018-04-13 11:08] LABS: BLOOD UREA NITROGEN 34 mg/dL (7-20); CALCIUM 9.3 mg/dL (8.4-10.2); CHLORIDE 105 mmol/L (98-107); GLUCOSE 89 mg/dL (75-110); POTASSIUM 4.1 mmol/L (3.6-5.0)
[2018-04-13 11:09] LABS: ANION GAP 10 (5-19); CARBON DIOXIDE 24 mmol/L (22-30); SODIUM 139.1 mmol/L (137-145)
[2018-04-13] MEDS ORDERED: LIDOCAINE 0.5% INJ-PF (5 MG/ML) 50 ML SDV ONE (11:56)
[2018-04-13] MEDS ORDERED: FENTANYL CITRATE INJ/PF 100 MCG/2 ML AMPUL ONE (11:57)
[2018-04-13] MEDS ORDERED: MIDAZOLAM 2 MG/2 ML INJ ONE (11:57)
[2018-04-13] MEDS ORDERED: HEPARIN SOD (PORCINE) 5,000 UNIT/ML 1 ML SYRINGE ONE (11:57)
--- NOTE | 2018-04-13 12:46 | Discharge Summary ---
Discharge Summary (SDC) - Discharge Final Diagnosis: #1 malfunctioning AV fistula, left brachiocephalic. 2. End-stage renal disease on hemodialysis. 3. COPD. 4. History of stroke. 5. Hypertension. Date of Surgery: 04/13/18 Discharge Date: 04/13/18 Condition: Fair Treatment or Instructions: Discharge home [after recovery per ASU criteria]. Diet , as tolerated, when fully awake advance as tolerated. Activities within moderation encouraged. Follow up in my office by appointment in about [1 month. Call for appointment. Leave wounds [covered], [keep clean and dry, until hemodialysis]. Hold of on school/work [until evaluation in office]. Meds per med rec. May shower [in 48 hrs], [try to keep operated area as dry as possible]. Referrals: GIANNA BOURGEOIS MD [Primary Care Provider] - Discharge Diet: Other (Comments) - Renal Respiratory Treatments at Home: Deep Breathing/Coughing Discharge Activity: Activity As Tolerated Report the Following to Your Physician Immediately: Unusual Bleeding
--- NOTE | 2018-04-13 12:49 | Operative Report ---
Operative Report DATE OF SURGERY: 04/13/18 PREOPERATIVE DIAGNOSIS: #1 malfunctioning AV fistula, left brachiocephalic. 2. End-stage renal disease on hemodialysis. 3. COPD. 4. History of stroke. 5. Hypertension. POSTOPERATIVE DIAGNOSIS: #1 malfunctioning AV fistula, left brachiocephalic. 2. End-stage renal disease on hemodialysis. 3. COPD. 4. History of stroke. 5. Hypertension. OPERATION: 1. Needle introduction into the fistula. 2. Angiogram and interpretation. SURGEON: JOSÉ MANUEL SHERMAN SLATE HANDLER: None. ANESTHESIA: Moderate Sedation TISSUE REMOVED OR ALTERED: Not applicable. COMPLICATIONS: None. ESTIMATED BLOOD LOSS: 2 mL. INTRAOPERATIVE FINDINGS: Of a somewhat firm and tortuous left arm brachiocephalic fistula. Angiogram showed it to be of satisfactory caliber although tortuous. The entire circuit including the superior vena cava seem normal in caliber with no areas of obstruction or stenosis noted. PROCEDURE: PROCEDURE: After verifying the procedure and having obtained informed consent, the patient's left arm was prepared with Chlorhexidine and draped out with sterile linen. Local anesthesia infiltrated. Percutaneous access into the fistula ,[ antegrade], obtained about [4 cm] from the arteriovenous anastomosis using a micro puncture needle followed by micro puncture wire and then a micro puncture catheter. A 0.035 [place] wire was inserted, and over this, a 6 U[place] short introducer was placed,. Angiogram demonstrated the aforementioned findings. it was decided that no angioplasty was required. The instrumentation was now withdrawn over a hand pressure for 10 minutes Dressings applied, procedure concluded. Exposure time: 1 minute. Radiation: 4.19 rony-bonner. Contrast: 5 mils of Isovue-300, low osmolality. DICTATING PHYSICIAN: JOSÉ MANUEL WINSTON M.D. cc: JOSÉ MANUEL WINSTON M.D. ([id number]) >>
--- NOTE | 2018-04-13 13:21 | RADIOLOGY REPORT (SQ) ---
EXAM DESCRIPTION: FISTULAGRAM COMPLETED DATE/TIME: 04/13/2018 12:49 pm REASON FOR STUDY: T82.858A T82.858A STENOSIS OF OTHER VASCULAR PROSTH DEV/GRFT, INIT COMPARISON: 08/14/2017 FLUOROSCOPY TIME: 1 minutes 21 digital radiographic images saved to PACS. TECHNIQUE: Intra-operative images acquired during surgical procedure to evaluate progress. NUMBER OF IMAGES: 21 images saved to pac's LIMITATIONS: None. FINDINGS: Intra procedural imaging and fluoro during evaluation of left upper extremity dialysis acc ess by Dr. Cee. Please see the operative report for further details IMPRESSION: Intra procedural imaging and fluoro COMMENT: Quality ID [id number]: Final reports for procedures using fluoroscopy that document radiation exp osure indices, or exposure time and number of fluorographic images (if radiation exposure indices are not available) Please consult full operative report of the attending physician for description of the procedure. TECHNICAL DOCUMENTATION: JOB ID: [id number] [employer]- All Rights Reserved Reading location - IP/workstation name: [email or web address]
[2018-04-13 14:24] VITALS: BP 147/76
--- NOTE | 2018-04-13 18:04 | EKG REPORT ---
SEVERITY:- ABNORMAL ECG - SINUS RHYTHM PROBABLE LEFT ATRIAL ABNORMALITY PROLONGED QT INTERVAL : Confirmed by: Katerina Murphy MD 13-Apr-2018 18:04:10
== END 2018-04-13 14:18 | disposition home or self-care (01) ==
LOC: CCL 09:20
PROVIDERS: ATTEND Surgery
DX: T82.858A Stenosis of other vascular prosthetic devices, implants and grafts, initial encounter (principal); Y83.2 Surgical operation with anastomosis, bypass or graft as the cause of abnormal reaction of the patient, or of later complication, without mention of misadventure at the time of the procedure; I12.0 Hypertensive chronic kidney disease with stage 5 chronic kidney disease or end stage renal disease; N18.6 End stage renal disease; Z99.2 Dependence on renal dialysis; J44.9 Chronic obstructive pulmonary disease, unspecified; E03.9 Hypothyroidism, unspecified; G45.8 Other transient cerebral ischemic attacks and related syndromes; Z86.73 Personal history of transient ischemic attack (TIA), and cerebral infarction without residual deficits; Z88.2 Allergy status to sulfonamides; Z88.0 Allergy status to penicillin; Z87.891 Personal history of nicotine dependence; Z79.82 Long term (current) use of aspirin; Z79.899 Other long term (current) drug therapy; Z79.51 Long term (current) use of inhaled steroids; Z01.818 Encounter for other preprocedural examination
CPT/HCPCS: 36415; 85027; 80048; 36901; 93005; 93010; Q9967; C1769; J2250; J1644 ×2; A9270; J3010; J3490

== ENCOUNTER → 2018-05-05 | Outpatient (CLI) | payer MEDICARE, OTHER ==
[2018-05-05 17:26] LABS: FREE T3 2.75 pg/mL (2.77-5.27); FREE T4 (FREE THYROXINE) 2.68 ng/dL (0.78-2.19)
[2018-05-05 17:39] LABS: THYROID STIMULATING HORMONE 2.06 uIU/mL (0.47-4.68)
== END ==
LOC: OD 15:46
PROVIDERS: ATTEND Family Medicine
DX: E03.9 Hypothyroidism, unspecified (principal)
CPT/HCPCS: 36415; 84439; 84443; 84481

== ENCOUNTER 2018-06-06 08:39 | Inpatient (IN) | payer MEDICARE, OTHER ==
[2018-06-06 09:31] LABS: ABSOLUTE BASOPHILS # (AUTO) 0.1 10^3/uL (0.0-0.2); ABSOLUTE EOSINOPHILS # (AUTO) 0.1 10^3/uL (0.0-0.6); ABSOLUTE LYMPHOCYTES (AUTO) 1.1 10^3/uL (0.5-4.7); ABSOLUTE MONOCYTES (AUTO) 0.4 10^3/uL (0.1-1.4); ABSOLUTE NEUT (AUTO) 4.6 10^3/uL (1.7-8.2); BASOPHILS % (AUTO) 1.1 % (0-2); EOSINOPHILS % (AUTO) 1.8 % (0-6); HEMATOCRIT 37.1 % (36.0-47.0); HEMOGLOBIN 12.6 g/dL (12.0-15.5); LYMPHOCYTES % (AUTO) 16.9 % (13-45); MEAN CORPUSCULAR HEMOGLOBIN 30.4 pg (27.0-33.4); MEAN CORPUSCULAR HGB CONC 34.1 g/dL (32.0-36.0); MEAN CORPUSCULAR VOLUME 89 fl (80-97); MONOCYTES % (AUTO) 6.5 % (3-13); PLATELET COUNT 199 10^3/uL (150-450); RED BLOOD COUNT 4.16 10^6/uL (3.72-5.28); RED CELL DISTRIBUTION WIDTH 17.2 % (11.5-14.0); SEGMENTED NEUTROPHILS % (AUTO) 73.7 % (42-78); TOTAL CELLS COUNTED % (AUTO) 100 %; WHITE BLOOD COUNT 6.2 10^3/uL (4.0-10.5)
--- NOTE | 2018-06-06 09:35 | ER Document Report ---
ED General - General Chief Complaint: Shortness Of Breath Stated Complaint: CHEST PAIN/SHORTNESS OF BREATH Time Seen by Provider: 06/06/18 09:20 Notes: Patient is complaining of increasing difficulty breathing since last night. She has COPD, is on home nebulizer treatments and on home oxygen as needed. She is a former cigarette smoker, stopped 12 years ago. She has had cough with mucus production for the past month and some intermittent blood streaks for the past couple of weeks. Appetite has been poor. Has had some nausea and vomited a couple of times. Is not aware of any fever. Has had some anterior chest pains which are brought on by low oxygen levels. Has some swelling of her ankles. Patient is a dialysis patient, on Friday and Friday dialysis. She had an appointment scheduled at 11 AM this morning patient does make urine. PMH hypertension, A. fib intermittently, heart attack in 2000. Had a GI bleed in March. TRAVEL OUTSIDE OF THE [place] IN LAST 30 DAYS: No - Related Data Allergies/Adverse Reactions: Sulfa (Sulfonamide Antibiotics) Allergy (Severe, Verified 04/13/18 10:02) unsure pregabalin [From Lyrica] Adverse Reaction (Severe, Verified 04/13/18 10:02) irritable,weight gain Past Medical History - Social History Smoking Status: Former Smoker - Stopped in 2005 Family History: Reviewed & Not Pertinent, CAD, Other - Past Medical History Cardiac Medical History: Reports: Hx Atrial Fibrillation, Hx Coronary Artery Disease, Hx Heart Attack - [place] X1, STENT PLACED 2000, Hx Hypercholesterolemia, Hx Hypertension - Pt has hypotension at this time Denies: Hx Congestive Heart Failure Pulmonary Medical History: Reports: Hx COPD - ON 3 L O2 NC CONTINUOUS, Hx Sleep Apnea Neurological Medical History: Reports: Hx Cerebrovascular Accident - CVA X3 LEFT WEAKER THAN RIGHT Endocrine Medical History: Reports: Hx Hypothyroidism Renal/ Medical History: Reports: Hx End Stage Renal Disease, Hx Hemodialysis - Dialyzes every Friday and Friday., Hx Renal Insufficiency - Chronic kidney disease stage III GI Medical History: Reports: Hx Colonoscopy, Other - Gastrointestinal bleeding in March of this year.Comment Only: Hx Ulcer - DIVERTICULITIS Past Surgical History: Reports: Hx Appendectomy, Hx Cardiac Catheterization, Hx Cardiac Surgery - STENT, Hx Cholecystectomy, Hx Coronary Stent - August 2014, Hx Tubal Ligation, Hx Vascular Surgery - PermCath placement for dialysis - Immunizations Hx Diphtheria, Pertussis, Tetanus Vaccination: Yes Hx Pneumococcal Vaccination: 07/07/12 Review of Systems - Review of Systems Notes: REVIEW OF SYSTEMS: CONSTITUTIONAL : Denies fever. EENT: Denies eye, ear, nose or mouth or throat pain or other symptoms. CARDIOVASCULAR: See HPI. RESPIRATORY: See HPI. GASTROINTESTINAL: Denies abdominal pain but has had some nausea and vomiting. Denies diarrhea. GENITOURINARY: Renal dialysis for end-stage renal disease. Denies difficulty or painful urinating, urinary frequency, blood in urine. MUSCULOSKELETAL: Denies back or neck pain. Denies joint pain or swelling. SKIN: Denies rash or skin lesions. NEUROLOGICAL: Denies LOC or altered mental status. Denies headache. Denies sensory loss or motor deficits. ALL OTHER SYSTEMS REVIEWED AND NEGATIVE. Physical Exam - Vital signs Vitals: Temp Pulse Resp BP Pulse Ox 97.8 F 74 28 H 158/82 H 88 L 06/06/18 08:48 06/06/18 08:48 06/06/18 08:48 06/06/18 08:48 06/06/18 08:48 Interpretation: Hypoxic - 88%, Other - Other vital signs essentially normal. - Notes Notes: PHYSICAL EXAMINATION: GENERAL: Well-appearing, in no acute distress. Triage O2 sat 88%. HEAD: Atraumatic, normocephalic. EYES: Pupils equal round and reactive to light, extraocular movements intact. ENT: oropharynx clear without exudates. Moist mucous membranes. NECK: Normal range of motion, supple. LUNGS: Breath sounds with some scattered wheezes and basilar rales bilaterally. HEART: Regular rate and rhythm without murmurs. ABDOMEN: Soft, nontender. No guarding or rebound. No masses. BACK: No tenderness throughout entire back. EXTREMITIES: Normal range of motion without pain. +1 pretibial edema bilaterally. Negative Homans. NEUROLOGICAL: Normal speech, gait not tested.. Normal sensory, motor, and reflex exams. Awake, alert, and oriented x3. PSYCH: Normal mood, normal affect. SKIN: Warm, dry, no rashes. Course - Re-evaluation Re-evalutation: 06/06/18 11:46 Patient was initially placed on oxygen with a nonrebreather and had comfortable respirations with O2 sats in the lower to mid 90%. I called and spoke with Dr. Neumann, patient's butcher apprentice, who agrees the patient can be taken care of at this hospital's because it does not appear that she needs dialysis based upon her chemistries. I advised her that I given the patient 40 mg of Lasix IV. She said that if that did not get good urine flow to consider 80 mg of Lasix IV every 12 hours. Patient's breathing seemed to worsen. She was sitting up in the bed and having labored respirations with some wheezes. I ordered a DuoNeb which seemed to help the breathing some. We have also put her on BiPAP. Crow catheter inserted and patient had almost 500 mL of urine in her bladder. Spoke with hospitalist who will be admitting her to [facility]. 06/06/18 11:53 - Vital Signs Vital signs: Temp Pulse Resp BP Pulse Ox 97.8 F 74 28 H 158/82 H 93 06/06/18 08:48 06/06/18 08:48 06/06/18 08:48 06/06/18 08:48 06/06/18 09:12 - Laboratory Result Diagrams: 06/06/18 09:12 06/06/18 09:12 Laboratory results interpreted by me: 06/06/18 06/06/18 06/06/18 09:12 09:12 09:12 RDW 17.2 H BUN 35 H Creatinine 2.85 H Est GFR ( Amer) 19 L Est GFR (Non-Af Amer) 16 L NT-Pro-B Natriuret Pep 52567 H Urine Protein Ur Leukocyte Esterase 06/06/18 10:00 RDW BUN Creatinine Est GFR ( Amer) Est GFR (Non-Af Amer) NT-Pro-B Natriuret Pep Urine Protein >=500 H Ur Leukocyte Esterase TRACE H - Diagnostic Test Radiology results interpreted by me: 06/06/18 11:52 Chest x-ray shows bilateral basilar effusions/fluid, right greater than left. Radiology believes that this is due to fluid overload rather than infection. - EKG Interpretation by Me EKG shows normal: Sinus rhythm Rate: Normal Rhythm: NSR Additional EKG results interpreted by me: 06/06/18 11:[address] changes. EKG is essentially normal. Critical Care Note - Critical Care Note Total time excluding time spent on procedures (mins): 35 Discharge - Discharge Clinical Impression: Congestive heart failure, End stage renal disease on dialysis, HTN ( hypertension) Condition: Fair Disposition: ADMITTED INPATIENT Admitting Provider: Hospitalist Unit Admitted: IMCU Referrals: GIANNA BOURGEOIS MD [Primary Care Provider] - Follow up as needed
[2018-06-06] MEDS ORDERED: CEFTRIAXONE INJ 1000 MG VIAL IV ONE (09:45)
[2018-06-06 09:54] LABS: ALANINE AMINOTRANSFERASE 13 U/L (9-52); ALKALINE PHOSPHATASE 72 U/L (38-126); ANION GAP 12 (5-19); ASPARTATE AMINO TRANSFERASE 36 U/L (14-36); BILIRUBIN,DIRECT 0.4 mg/dL (0.0-0.4); BILIRUBIN,TOTAL 1.3 mg/dL (0.2-1.3); BLOOD UREA NITROGEN 35 mg/dL (7-20); CALCIUM 9.8 mg/dL (8.4-10.2); CARBON DIOXIDE 24 mmol/L (22-30); CHLORIDE 106 mmol/L (98-107); CREATINE KINASE 38 U/L (30-135); GLUCOSE 102 mg/dL (75-110); POTASSIUM 4.6 mmol/L (3.6-5.0); SODIUM 141.6 mmol/L (137-145); TOTAL PROTEIN 6.9 g/dL (6.3-8.2)
[2018-06-06 10:03] LABS: CREATINE KINASE MB 0.37 ng/mL (<4.55); TROPONIN I 0.018 ng/mL
[2018-06-06] MEDS ORDERED: FUROSEMIDE INJ/PF 40 MG/4 ML SDV IV ONE (10:15)
--- NOTE | 2018-06-06 10:26 | RADIOLOGY REPORT (SQ) ---
EXAM DESCRIPTION: CHEST SINGLE VIEW COMPLETED DATE/TIME: 06/06/2018 9:56 am REASON FOR STUDY: Shortness of breath, patient is due for dialysis. COMPARISON: 03/14/2018 and earlier EXAM PARAMETERS: NUMBER OF VIEWS: One view. TECHNIQUE: Single frontal radiographic view of the chest acquired. RADIATION DOSE: NA LIMITATIONS: None. FINDINGS: LUNGS AND PLEURA: Reticular bibasilar opacities with associated pleural effusions. Slight ly coarsened interstitial markings. No pneumothorax. MEDIASTINUM AND HILAR STRUCTURES: No masses. Contour normal. HEART AND VASCULAR STRUCTURES: Cardiac silhouette is partially obscured by the adjacent lung patholog y. Calcifications of the visualized aorta. BONES: No acute findings. HARDWARE: None in the chest. OTHER: No other significant finding. IMPRESSION: Basilar predominant reticular opacities with associated pleural effusions. Pulmonary va scular congestion is favored. TECHNICAL DOCUMENTATION: JOB ID: [id number] [employer]- All Rights Reserved Reading location - IP/workstation name: [email or web address]
[2018-06-06 10:39] LABS: APPEARANCE,URINE CLEAR; BILIRUBIN,URINE NEGATIVE (NEGATIVE); COLOR,URINE YELLOW; GLUCOSE, URINE NEGATIVE (NEGATIVE); KETONES,URINE NEGATIVE (NEGATIVE); LEUKOCYTE ESTERASE,URINE TRACE (NEGATIVE); NITRITE,URINE NEGATIVE (NEGATIVE); PROTEIN,URINE >=500 mg/dL (NEGATIVE); UROBILINOGEN,URINE NEGATIVE mg/dL (<2.0)
[2018-06-06] MEDS ORDERED: IPRATROPIUM/ALBUTEROL 0.5-2.5 MG/3 ML AMPUL NEB ONE (11:29)
--- NOTE | 2018-06-06 13:40 | PDOC H&P ---
History of Present Illness Admission Date/PCP: 06/06/18 12:15 GIANNA BOURGEOIS MD Patient complains of: Increased shortness of breath worse with minimal exertion. History of Present Illness: EZRA SUERO is a 78 year old female presenting with shortness of breath. This is a patient with end-stage renal disease. The patient had hemodialysis on Friday. She receives dialysis on Tuesdays and and Saturdays. Yesterday she noticed increasing shortness of breath. In addition minimal exertion causes significant dyspnea. She denies fever or chills. She denies productive cough. She states that she followed her normal routine with no deviations including dietary indiscretions. In lieu of going to hemodialysis today she reports to the emergency department because of the profound shortness of breath. On April 13 she did have an angiogram to investigate her AV fistula. There was no stenosis noted and no intervention was required. Ongoing issue is her recurrent GI bleeding. She is scheduled for colonoscopy next week I believe. For right now she is off of anticoagulants including Eliquis and Plavix. Past Medical History Cardiac Medical History: Reports: Atrial Fibrillation, Coronary Artery Disease, Myocardial Infarction - [place] X1, STENT PLACED 2000, Hyperlipidema, Hypertension - Pt has hypotension at this time, Other - Pacemaker Denies: Congestive Heart Failure Pulmonary Medical History: Reports: Chronic Obstructive Pulmonary Disease (COPD ) - ON 3 L O2 NC CONTINUOUS, Sleep Apnea EENT Medical History: Reports: None Neurological Medical History: Reports: Ischemic CVA Neurological History Note: History of ischemic CVA Endocrine Medical History: Reports: Hypothyroidism Denies: Diabetes Mellitus Type 2 Renal/ Medical History: Reports: End Stage Renal Disease - Dialysis on Friday and Friday currently Malignancy Medical History: Reports: Breast Cancer - Status post mastectomy GI Medical History: Reports: Other - Gastrointestinal bleeding in March of this year. History of multiple o Musculoskeltal Medical History: Reports: None Skin Medical History: Reports: None Psychiatric Medical History: Reports: None Traumatic Medical History: Reports: None Hematology: Reports: Anemia - Secondary to end-stage kidney disease Denies: Sickle Cell Disease Infectious Medical History: Reports: None Past Surgical History Past Surgical History: Reports: Appendectomy, Cardiac Catheterization, Cholecystectomy, Coronary Stent - August 2014, Mastectomy, Tubal Ligation, Vascular Surgery - PermCath placement for dialysis with subsequent AV graft for dialysis, Other - AV fistula formation for hemodialysis Denies: Amputation Social History Information Source: Patient, [facility] Lives with: Family Smoking Status: Former Smoker - Stopped in 2005 Frequency of Alcohol Use: None Hx Recreational Drug Use: No Drugs: None Hx Prescription Drug Abuse: No - Advance Directive Resuscitation Status: Full Code Family History Family History: Reviewed & Not Pertinent, CAD, Other Parental Family History Reviewed: Yes Children Family History Reviewed: Yes - 1 son who has hypertension Sibling(s) Family History Reviewed.: Unknown Medication/Allergy Home Medications: Albuterol Sulfate [Proair HFA] 2 puff IN Q3 03/10/18 Aspirin [Ecotrin 81 mg EC Tablet] 81 mg PO DAILY 03/10/18 Calcium Acetate [Phoslo 667 mg Capsule] 667 mg PO Q8H 03/10/18 Dronedarone Hydrochloride [Multaq 400 mg Tablet] 400 mg PO Q12 03/10/18 Febuxostat [Uloric 40 mg Tablet] 40 mg PO DAILY 03/10/18 Fluticasone/Salmeterol [Advair 250-50 Diskus 28 dose] 1 puff IN Q12 03/10/18 Furosemide [Lasix 40 mg Tablet] 20 mg PO SUMOWETHFR@1000 03/10/18 Levothyroxine Sodium [Synthroid 0.112 mg Tablet] 125 mcg PO DAILY 03/10/18 Metoprolol Succinate 50 mg PO QPM 03/10/18 Midodrine HCl 5 mg PO TUSA@1000 03/10/18 Nitroglycerin [Nitrostat 0.4 mg (1/150 Gr) Tabs 25/Bottle] 1 tab SL DAILYP PRN 03/10/18 Rosuvastatin Calcium [Crestor 10 mg Tablet] 10 mg PO QPM 03/10/18 Sennosides/Docusate Sodium [Senna-S Tablet] 1 tab PO QAM 03/10/18 Tiotropium [place] [Spiriva] 1 puff IN DAILY 03/10/18 Ergocalciferol (Vitamin D2) [Vitamin D] 1,000 mg PO DAILY 04/13/18 Allergies/Adverse Reactions: Sulfa (Sulfonamide Antibiotics) Allergy (Severe, Verified 04/13/18 10:02) unsure pregabalin [From Lyrica] Adverse Reaction (Severe, Verified 04/13/18 10:02) irritable,weight gain Review of Systems Constitutional: PRESENT: as per HPI Eyes: ABSENT: visual disturbances Ears: ABSENT: hearing changes Nose, Mouth, and Throat: ABSENT: mouth pain, sore throat Cardiovascular: PRESENT: dyspnea on exertion. ABSENT: chest pain, palpitations Respiratory: PRESENT: dyspnea. ABSENT: cough, sputum Gastrointestinal: PRESENT: nausea. ABSENT: abdominal pain, constipation, diarrhea, heartburn, vomiting Genitourinary: PRESENT: other - Crow catheter in place. ABSENT: dysuria Musculoskeletal: ABSENT: deformity, joint swelling, muscle weakness Integumentary: ABSENT: diaphoresis, pruritus, rash, wounds Neurological: ABSENT: abnormal speech, memory loss, syncope, tremor(s), vertigo Psychiatric: ABSENT: anxiety, depression, hallucinations Endocrine: ABSENT: cold intolerance, flushing, heat intolerance Hematologic/Lymphatic: ABSENT: easy bleeding - History of GI bleed, easy bruising Allergic/Immunologic: ABSENT: seasonal rhinorrhea Physical Exam Vital Signs: Temp Pulse Resp BP Pulse Ox 97.8 F 74 28 H 158/82 H 93 06/06/18 08:48 06/06/18 08:48 06/06/18 08:48 06/06/18 08:48 06/06/18 09:12 General appearance: PRESENT: no acute distress, cooperative, well-developed Head exam: PRESENT: atraumatic, normocephalic Eye exam: PRESENT: conjunctiva pale, EOMI. ABSENT: scleral icterus Ear exam: PRESENT: normal external ear exam Mouth exam: PRESENT: moist, neck supple, tongue midline Neck exam: PRESENT: full ROM. ABSENT: carotid bruit, lymphadenopathy, tenderness Respiratory exam: PRESENT: rales - Bilaterally, symmetrical, unlabored. ABSENT : rhonchi, stridor, wheezes Cardiovascular exam: PRESENT: RRR, +S1, +S2 Pulses: PRESENT: +1 pedal pulses bilateral, other - 1+ radial pulses GI/Abdominal exam: PRESENT: normal bowel sounds, soft. ABSENT: distended, guarding, tenderness Extremities exam: PRESENT: other - Trace pitting edema lower extremities. Chronic swelling as well.. ABSENT: calf tenderness Musculoskeletal exam: PRESENT: normal inspection Neurological exam: PRESENT: alert, awake, oriented to person, oriented to place , oriented to time, oriented to situation, CN II-XII grossly intact, other Psychiatric exam: PRESENT: appropriate affect, normal mood. ABSENT: anxious Focused psych exam: ABSENT: delusional, restlessness Skin exam: PRESENT: abrasion - On the bridge of the nose possibly from BiPAP mask Results Laboratory Results: CBC reveals white blood cell count 6.2 hemoglobin 12.6 hematocrit 37 platelet count 199 MCV 89 Sodium 141 potassium 4.6 chloride 106 CO2 24 BUN 35 creatinine 2.85 GFR 16 glucose 102 Brain atretic peptide 20,700 Impressions: Chest X-Ray 06/06/18 09:12 IMPRESSION: Basilar predominant reticular opacities with associated pleural effusions. Pulmonary vascular congestion is favored. Assessment & Plan - Diagnosis (1) Congestive heart failure Qualifiers: Heart failure type: unspecified Heart failure chronicity: acute on chronic Qualified Code(s): I50.9 - Heart failure, unspecified Is this a current diagnosis for this admission?: Yes Plan: Exact etiology is unknown. This is likely exacerbated by her renal failure. Chest x-ray is consistent with heart failure including effusions and pulmonary congestion. Because she does make urine we will try to diurese her as best as possible. Dr. Neumann will be following the patient as well. We will monitor her electrolytes and renal function. We will continue BiPAP until she is adequately diuresed. (2) End-stage renal disease on hemodialysis Is this a current diagnosis for this admission?: Yes Plan: She was due for dialysis today. She is next due on Friday. If all goes well we can diurese her without having her miss her scheduled hemodialysis on June 09. (3) COPD (chronic obstructive pulmonary disease) Qualifiers: COPD type: unspecified COPD Qualified Code(s): J44.9 - Chronic obstructive pulmonary disease, unspecified Is this a current diagnosis for this admission?: Yes Plan: Continue current inhaler regimen. She is on BiPAP for her failure. This will also help with her COPD. (4) Hypothyroidism Qualifiers: Hypothyroidism type: acquired Qualified Code(s): E03.9 - Hypothyroidism, unspecified Is this a current diagnosis for this admission?: Yes Plan: Continue levothyroxine (5) History of CVA (cerebrovascular accident) Is this a current diagnosis for this admission?: Yes Plan: Stable. Left leg weakness as of late effect of her stroke. Currently not anticoagulated with history of GI bleeding. (6) Coronary artery disease Qualifiers: Coronary Disease-Associated Artery/Lesion type: [place] artery Is this a current diagnosis for this admission?: Yes Plan: History of myocardial infarction with stent placement. Continue current regimen including statin therapy and aspirin. (7) History of GI bleed Is this a current diagnosis for this admission?: Yes Plan: Several episodes of GI bleeding. In fact she was due for colonoscopy on June later this month. At this time she is avoiding Plavix and Eliquis. - Time Time Spent: 50 to 70 Minutes Medications reviewed and adjusted accordingly: Yes Anticipated discharge: Home - Inpatient Certification Based on my medical assessment, after consideration of the patient's comorbidities, presenting symptoms, or acuity I expect that the services needed warrant INPATIENT care.: Yes I certify that my determination is in accordance with my understanding of Medicare's requirements for reasonable and necessary INPATIENT services [42 CFR 412.3e].: Yes Medical Necessity: Significant Comorbidiites Make Outpatient Treatment Too Risky , Need Close Monitoring Due to Risk of Patient Decompensation, Need For Continuous Telemetry Monitoring
[2018-06-06] MEDS ORDERED: IPRATROPIUM/ALBUTEROL 0.5-2.5 MG/3 ML AMPUL NEB PRN (13:41)
[2018-06-06] MEDS ORDERED: ACETAMINOPHEN 325 MG TABLET PO PRN (13:41)
[2018-06-06] MEDS ORDERED: DOCUSATE SODIUM 100 MG CAPSULE PO PRN (13:41)
[2018-06-06] MEDS ORDERED: NITROGLYCERIN 0.4 MG/TAB 25 TAB/BOTTLE SL PRN (13:54)
[2018-06-06] MEDS ORDERED: PROMETHAZINE HCL 25 MG TABLET PO PRN (13:59)
[2018-06-06] MEDS ORDERED: CALCIUM ACETATE 667 MG CAPSULE PO SCH (14:00)
[2018-06-06] MEDS ORDERED: ALBUTEROL SULFATE HFA (90 MCG/PUFF) 200 PUFF/8.5 GM MDI IH PRN (15:00)
[2018-06-06] MEDS: METOPROLOL SUCCINATE 50 MG TAB.SR.24H PO SCH (17:07)
[2018-06-06] MEDS: FUROSEMIDE INJ/PF 40 MG/4 ML SDV IV SCH (21:52)
[2018-06-06] MEDS: ATORVASTATIN CALCIUM 20 MG TABLET PO SCH (21:53)
[2018-06-06] MEDS: FLUTICASONE/SALMETEROL DISKUS 250-50 MCG/DOSE IH SCH (21:53)
--- NOTE | 2018-06-06 22:27 | EKG REPORT ---
SEVERITY:- OTHERWISE NORMAL ECG - SINUS RHYTHM MINIMAL ST DEPRESSION, LATERAL LEADS : Confirmed by: Catarino Sinclair MD 06-Jun-2018 22:26:54
[2018-06-07 03:58] LABS: HEMATOCRIT 31.6 % (36.0-47.0); HEMOGLOBIN 10.8 g/dL (12.0-15.5); MEAN CORPUSCULAR HEMOGLOBIN 30.2 pg (27.0-33.4); MEAN CORPUSCULAR HGB CONC 34.2 g/dL (32.0-36.0); MEAN CORPUSCULAR VOLUME 88 fl (80-97); PLATELET COUNT 157 10^3/uL (150-450); RED BLOOD COUNT 3.58 10^6/uL (3.72-5.28); RED CELL DISTRIBUTION WIDTH 17.2 % (11.5-14.0); WHITE BLOOD COUNT 4.6 10^3/uL (4.0-10.5)
[2018-06-07 04:15] LABS: ALBUMIN 2.8 g/dL (3.5-5.0); ANION GAP 9 (5-19); BLOOD UREA NITROGEN 41 mg/dL (7-20); CALCIUM 8.9 mg/dL (8.4-10.2); CARBON DIOXIDE 24 mmol/L (22-30); CHLORIDE 107 mmol/L (98-107); GLUCOSE 89 mg/dL (75-110); PHOSPHORUS 3.9 mg/dL (2.5-4.5); POTASSIUM 4.7 mmol/L (3.6-5.0)
[2018-06-07 04:23] LABS: ABSOLUTE LYMPHOCYTES# (MANUAL) 0.9 10^3/uL (0.5-4.7); ABSOLUTE MONOCYTES # (MANUAL) 0.2 10^3/uL (0.1-1.4); ABSOLUTE NEUTROPHILS# (MANUAL) 3.3 10^3/uL (1.7-8.2); BASOPHILS % (MANUAL) 1 % (0-2); EOSINOPHILS % (MANUAL) 3 % (0-6); LYMPHOCYTES % (MANUAL) 19 % (13-45); MONOCYTES % (MANUAL) 5 % (3-13); SEGMENTED NEUTROPHILS % (MAN) 72 % (42-78); TOTAL CELLS COUNTED 100
[2018-06-07 04:26] LABS: ACANTHOCYTES 1+; ANISOCYTOSIS 1+; OVALOCYTES 2+; POIKILOCYTOSIS 1+; TOXIC GRANULATION 1+
[2018-06-07 04:27] LABS: PLATELET COMMENT ADEQUATE; TEAR DROP CELLS SLIGHT
[2018-06-07] MEDS: LEVOTHYROXINE SODIUM 0.05 MG TABLET PO SCH (05:16)
[2018-06-07] MEDS: SENNOSIDES/DOCUSATE 8.6-50 MG 1 EACH TABLET PO SCH (08:10)
--- NOTE | 2018-06-07 08:31 | RADIOLOGY REPORT (SQ) ---
EXAM DESCRIPTION: CHEST SINGLE VIEW COMPLETED DATE/TIME: 06/07/2018 8:12 am REASON FOR STUDY: CHF COMPARISON: 06/06/2018 EXAM PARAMETERS: NUMBER OF VIEWS: One view. TECHNIQUE: Single frontal radiographic view of the chest acquired. RADIATION DOSE: NA LIMITATIONS: None. FINDINGS: LUNGS AND PLEURA: Basilar parenchymal opacities in bilateral pleural effusions. Minimally improved. MEDIASTINUM AND HILAR STRUCTURES: No masses. Contour normal. HEART AND VASCULAR STRUCTURES: Heart enlarged. Mild vascular congestion. BONES: No acute findings. HARDWARE: None in the chest. OTHER: No other significant finding. IMPRESSION: Slight improved aeration of the lungs. Persistent opacities and effusions. TECHNICAL DOCUMENTATION: JOB ID: [id number] [employer]- All Rights Reserved Reading location - IP/workstation name: [email or web address]
[2018-06-07] MEDS: CHOLECALCIFEROL (D3) 1,000 UNIT TABLET PO SCH (09:14)
[2018-06-07] MEDS: FLUTICASONE/SALMETEROL DISKUS 250-50 MCG/DOSE IH SCH ×2 (09:14→22:09)
[2018-06-07] MEDS: FEBUXOSTAT 40 MG TABLET PO SCH (09:14)
[2018-06-07] MEDS: ASPIRIN 81 MG TABLET, ENT COATED PO SCH (09:14)
[2018-06-07] MEDS ORDERED: AZITHROMYCIN INJ 500 MG VIAL IV ONE (09:15)
[2018-06-07] MEDS: FUROSEMIDE INJ/PF 40 MG/4 ML SDV IV SCH ×2 (09:15→22:09)
--- NOTE | 2018-06-07 09:33 | PDOC PROGRESS REPORT ---
Subjective Progress Note for:: 06/07/18 Subjective:: Patient feels slightly better today. She she now has a productive cough with blood-tinged sputum. Chest x-ray now shows infiltrates under her pleural effusions. Reason For Visit: ESRD ON HEMODIALYSIS,ACUTE VOLUME OVERLOAD,HX CAD Physical Exam Vital Signs: Temp Pulse Resp BP Pulse Ox 98.7 F 61 13 96/41 L 91 L 06/06/18 19:41 06/07/18 02:00 06/07/18 04:03 06/06/18 19:41 06/07/18 00:27 Intake & Output 06/06/18 06/07/18 06/08/18 06:59 06:59 06:59 Intake Total 790 Output Total 1900 Balance -1110 Weight 76 kg General appearance: PRESENT: cooperative, mild distress, well-developed Exam: Wearing BiPAP Head exam: PRESENT: normocephalic Eye exam: PRESENT: conjunctiva pale. ABSENT: scleral icterus Ear exam: PRESENT: normal external ear exam Respiratory exam: PRESENT: rales - Bilateral bases, symmetrical. ABSENT: rhonchi, wheezes Cardiovascular exam: PRESENT: RRR, +S1, +S2 GI/Abdominal exam: PRESENT: normal bowel sounds, soft. ABSENT: distended, tenderness Neurological exam: PRESENT: alert, awake, oriented to person, oriented to place , oriented to situation Psychiatric exam: PRESENT: appropriate affect, normal mood Skin exam: PRESENT: dry, normal color, warm. ABSENT: rash Results Laboratory Results: 06/07/18 03:49 06/07/18 03:49 06/07/18 06/07/18 06/07/18 03:49 03:49 03:49 WBC 4.6 RBC 3.58 L Hgb 10.8 L Hct 31.6 L MCV 88 MCH 30.2 MCHC 34.2 RDW 17.2 H Plt Count 157 Seg Neutrophils % Not Reportable Lymphocytes % Not Reportable Monocytes % Not Reportable Eosinophils % Not Reportable Basophils % Not Reportable Absolute Neutrophils Not Reportable Absolute Lymphocytes Not Reportable Absolute Monocytes Not Reportable Absolute Eosinophils Not Reportable Absolute Basophils Not Reportable Sodium 140.0 Potassium 4.7 Chloride 107 Carbon Dioxide 24 Anion Gap 9 BUN 41 H Creatinine 3.15 H Est GFR ( Amer) 17 L Est GFR (Non-Af Amer) 14 L Glucose 89 Calcium 8.9 Phosphorus 3.9 Magnesium 2.1 Albumin 2.8 L TSH 0.39 L 06/06/18 06/06/18 06/07/18 15:44 21:45 03:49 Troponin I 0.032 0.034 0.034 Impressions: Chest X-Ray 06/07/18 06:00 IMPRESSION: Slight improved aeration of the lungs. Persistent opacities and effusions. Assessment & Plan - Diagnosis (1) Hemoptysis Is this a current diagnosis for this admission?: Yes Plan: June 07, 2018-the patient had a productive cough with blood-tinged sputum. I have asked for a sputum culture. Chest x-ray today revealed consolidations under the pleural effusions bilaterally. She does not have a white count but she is compromised because of multiple illnesses. I did start azithromycin and ceftriaxone until further results are available. (2) Congestive heart failure Qualifiers: Heart failure type: unspecified Heart failure chronicity: acute on chronic Qualified Code(s): I50.9 - Heart failure, unspecified Is this a current diagnosis for this admission?: Yes Plan: 06/06/2018-exact etiology is unknown. This is likely exacerbated by her renal failure. Chest x-ray is consistent with heart failure including effusions and pulmonary congestion. Because she does make urine we will try to diurese her as best as possible. Dr. Neumann will be following the patient as well. We will monitor her electrolytes and renal function. We will continue BiPAP until she is adequately diuresed. June 07, 2018-the patient is feeling better. Still with rales at bases. Chest x-ray now reveals infiltrates under the bilateral pleural effusions. She did have low blood pressure last evening. She had a negative fluid balance of 1.1 L. I will decrease her diuretics slightly. I would like to try and have a negative fluid balance of 1 L daily. (3) End-stage renal disease on hemodialysis Is this a current diagnosis for this admission?: Yes Plan: 06/06/2018-she was due for dialysis today. She is next due on Friday. If all goes well we can diurese her without having her miss her scheduled hemodialysis on June 09. June 07, 2018-the patient's creatinine is rising. She is not scheduled for hemodialysis until Friday. Dr. Neumann has been consulted. She may require dialysis sooner. (4) COPD (chronic obstructive pulmonary disease) Qualifiers: COPD type: unspecified COPD Qualified Code(s): J44.9 - Chronic obstructive pulmonary disease, unspecified Is this a current diagnosis for this admission?: Yes Plan: 06/06/2018-continue current inhaler regimen. She is on BiPAP for her failure. This will also help with her COPD. June 07, 2018-was off of BiPAP briefly. She is back on it due to hypoxia. We will slowly taper her off of BiPAP. (5) Hypothyroidism Qualifiers: Hypothyroidism type: acquired Qualified Code(s): E03.9 - Hypothyroidism, unspecified Is this a current diagnosis for this admission?: Yes Plan: 06/06/2018-continue levothyroxine June 07, 2018-TSH is slightly low. At this time I will continue her levothyroxine at 125 mcg daily. Adjustments can be made as an outpatient. (6) History of CVA (cerebrovascular accident) Is this a current diagnosis for this admission?: Yes Plan: 06/06/2018-stable. Left leg weakness as of late effect of her stroke. Currently not anticoagulated with history of GI bleeding. June 07, 2018-stable. Continue same regimen. (7) Coronary artery disease Qualifiers: Coronary Disease-Associated Artery/Lesion type: [place] artery Is this a current diagnosis for this admission?: Yes Plan: 06/06/2018-history of myocardial infarction with stent placement. Continue current regimen including statin therapy and aspirin. June 07, 2018-currently asymptomatic. Continue current treatment plan (8) History of GI bleed Is this a current diagnosis for this admission?: Yes Plan: 06/06/2018-several episodes of GI bleeding. In fact she was due for colonoscopy on June later this month. At this time she is avoiding Plavix and Eliquis. June 07, 2018-no anticoagulation at this time. She is scheduled for colonoscopy this month. - Time Time Spent with patient: 25-34 minutes Medications reviewed and adjusted accordingly: Yes Anticipated discharge: Home
[2018-06-07] MEDS ORDERED: LEVOTHYROXINE SODIUM 0.112 MG TABLET PO SCH (10:00)
[2018-06-07] MEDS ORDERED: CEFTRIAXONE 1 GM/D5W RTU 1 GM/50 ML RTUPB IV SCH (10:00)
[2018-06-07] MEDS ORDERED: ERGOCALCIFEROL PO SCH (10:00)
[2018-06-07] MEDS: TIOTROPIUM BROMIDE DPI 5 CAP/KIT (18 MCG/CAP) IH SCH (12:03)
[2018-06-07] MEDS: CEFTRIAXONE SODIUM 1,000 MG in DEXTROSE 5%-WATER 50 ML IV SCH (12:03)
[2018-06-07] MEDS: AZITHROMYCIN 500 MG in DEXTROSE 5%-WATER 250 ML IV SCH (12:43)
[2018-06-07] MEDS: METOPROLOL SUCCINATE 50 MG TAB.SR.24H PO SCH (17:48)
[2018-06-07] MEDS: ATORVASTATIN CALCIUM 20 MG TABLET PO SCH (22:09)
[2018-06-08] MEDS ORDERED: NORMAL SALINE 1000 ML 1,000 ML IV PRN (05:00)
[2018-06-08] MEDS: LEVOTHYROXINE SODIUM 0.05 MG TABLET PO SCH (05:47)
[2018-06-08 06:25] LABS: HEMATOCRIT 31.3 % (36.0-47.0); HEMOGLOBIN 10.7 g/dL (12.0-15.5); MEAN CORPUSCULAR HEMOGLOBIN 30.2 pg (27.0-33.4); MEAN CORPUSCULAR HGB CONC 34.4 g/dL (32.0-36.0); MEAN CORPUSCULAR VOLUME 88 fl (80-97); PLATELET COUNT 197 10^3/uL (150-450); RED BLOOD COUNT 3.56 10^6/uL (3.72-5.28); RED CELL DISTRIBUTION WIDTH 16.9 % (11.5-14.0); WHITE BLOOD COUNT 3.7 10^3/uL (4.0-10.5)
[2018-06-08 06:54] LABS: ALBUMIN 2.7 g/dL (3.5-5.0); ANION GAP 10 (5-19); BLOOD UREA NITROGEN 44 mg/dL (7-20); CALCIUM 8.6 mg/dL (8.4-10.2); CARBON DIOXIDE 25 mmol/L (22-30); CHLORIDE 106 mmol/L (98-107); GLUCOSE 83 mg/dL (75-110); SODIUM 141.4 mmol/L (137-145)
--- NOTE | 2018-06-08 09:38 | PDOC CONSULTATION ---
Consultation Consult Date: 06/08/18 Attending physician:: GEENA LEACH Consult reason:: I was asked to see the patient because of dyspnea with possible fluid overload in a dialysis patient. History of Present Illness Admission Date/PCP: 06/06/18 12:15 GIANNA BOURGEOIS MD History of Present Illness: EZRA SUERO is a 78 year old female known to me with history of ESRD on maintenance hemodialysis on Tuesdays and Saturdays, history of multiple CVAs with residual left-sided weakness, hypertension, history of GI bleed due to anticoagulation, and coronary artery disease who presented to the emergency room 2 days ago last Friday because of progressively worsening shortness of breath. Patient told me that she started to have shortness of breath early Friday morning which is progressively getting worse within 1-1/2 hours so she went to the emergency room. She complains of some cough with some mucus and blood-tinged sputum. She actually has been following up with her technology development intern , Dr. Silverman and is actually this scheduled for bronchoscopy next week June 16 due to blood-tinged sputum. She denies any fever no chills otherwise. She said she also has some occasional chest pains whenever her oxygen level is going low. She noticed her leg swelling is a little bit more than usual. Her last hemodialysis was Friday last week and she obviously did not make it to her dialysis on Friday because she went to the emergency room. Upon admission her chest x-ray shows some bilateral pleural effusion more than usual as well as some congestion so she is being diuresed with IV Lasix since admission. She does still produce some urine. For the last 2 days she was making approximately 2 L of urine a day with the balance at least -1 L daily. This morning when I see her she is still short of breath. She is being initiated on dialysis here in the ICU. When I see her she felt like she is going to need a BiPAP so we had the nurses put her on the BiPAP with initiation of hemodialysis. Patient otherwise does not have any other new complaints at the moment. Her blood pressures so far acceptable. She also follows up with cardiology and has an appointment with [place] [facility] on June 24. Past Medical History Cardiac Medical History: Reports: Atrial Fibrillation - Paroxysmal, anticoagulation discontinued due to GI bleed episodes, Coronary Artery Disease, Hyperlipidemia, Hypertension-primary, Myocardial Infarction - [place] X1, STENT PLACED 2000, Other - Subclavian steal syndrome Pulmonary Medical History: Reports: Chronic Obstructive Pulmonary Disease (COPD ) - ON 3 L O2 NC CONTINUOUS, Sleep Apnea Neurological Medical History: Reports: Ischemic CVA, Other - TIA, syncope, vertigo Endocrine Medical History: Reports: Hypothyroidism Renal/ Medical History: Reports: End Stage Renal Disease - Dialysis on Friday and Friday currently, Hyperphosphatemia, Metabolic Acidosis, Secondary Hyperparathyroidism, Other - 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 Malignancy Medical History: Reports: Breast Cancer - Status post mastectomy GI Medical History: Reports: Other - Gastrointestinal bleeding in March of this year on anticoagulation Hematology Medical History: Reports Anemia of Chronic Kidney Disease Past Surgical History Past Surgical History: Reports: Appendectomy, Cardiac Catheterization, Cholecystectomy, Coronary Stent - August 2014, Dialysis Access Surgery AVF, Mastectomy, Tubal Ligation, Vascular Surgery - PermCath placement for dialysis with subsequent AV graft for dialysis Social History Information Source: Patient, [facility] Records Lives with: Family Smoking Status: Former Smoker Number of Years Smokin Frequency of Alcohol Use: None Hx Recreational Drug Use: No Drugs: None Hx Prescription Drug Abuse: No - Advance Directive Resuscitation Status: Full Code Family History Family History: CVA - Mother, Hypertension - Sister Parental Family History Reviewed: Yes Children Family History Reviewed: Yes Sibling(s) Family History Reviewed.: Yes Medication/Allergy Home Medications: Albuterol Sulfate [Proair HFA] 2 puff IN Q3HP PRN 03/10/18 Aspirin [Ecotrin 81 mg EC Tablet] 81 mg PO DAILY 03/10/18 Calcium Acetate [Phoslo 667 mg Capsule] 667 mg PO Q8H 03/10/18 Febuxostat [Uloric 40 mg Tablet] 40 mg PO DAILY 03/10/18 Fluticasone/Salmeterol [Advair 250-50 Diskus 28 dose] 1 puff IN Q12 03/10/18 Furosemide [Lasix 40 mg Tablet] 20 mg PO SUMOWETHFR@1000 03/10/18 Levothyroxine Sodium [Synthroid 0.112 mg Tablet] 125 mcg PO DAILY 03/10/18 Metoprolol Succinate 50 mg PO QPM 03/10/18 Midodrine HCl 5 mg PO TUSA@1000 03/10/18 Nitroglycerin [Nitrostat 0.4 mg (1/150 Gr) Tabs 25/Bottle] 1 tab SL DAILYP PRN 03/10/18 Rosuvastatin Calcium [Crestor 10 mg Tablet] 10 mg PO QPM 03/10/18 Tiotropium Golden [Spiriva] 1 puff IN DAILY 03/10/18 Ergocalciferol (Vitamin D2) [Vitamin D] 1,000 mg PO DAILY 04/13/18 Guaifenesin [Mucinex] 600 mg PO Q12 06/06/18 Allergies/Adverse Reactions: Sulfa (Sulfonamide Antibiotics) Allergy (Severe, Verified 04/13/18 10:02) unsure pregabalin [From Lyrica] Adverse Reaction (Severe, Verified 04/13/18 10:02) irritable,weight gain Review of Systems All systems: reviewed and no additional remarkable complaints except as stated Review of Systems: Constitutional: ABSENT: chills, fatigue, fever(s), headache(s), weight gain, weight loss Eyes: ABSENT: visual disturbances Ears: ABSENT: hearing changes Cardiovascular: ABSENT: Dyspnea on exertion, orthropnea, palpitations; admits intermittent chest pains and edema Respiratory: Present: cough, dyspnea, hemoptysis Gastrointestinal: ABSENT: abdominal pain, constipation, diarrhea, hematemesis, hematochezia, nausea, vomiting Genitourinary: ABSENT: dysuria, hematuria Musculoskeletal: ABSENT: joint swelling Integumentary: ABSENT: rash, wounds Neurological: ABSENT: abnormal gait, abnormal speech, confusion, dizziness, focal weakness, numbness, syncope Psychiatric: ABSENT: anxiety, depression Endocrine: ABSENT: cold intolerance, heat intolerance, polydipsia, polyuria Hematologic/Lymphatic: ABSENT: easy bleeding, easy bruising, lymphadenopathy Physical Exam Vital Signs: Temp Pulse Resp BP Pulse Ox 98.2 F 72 20 130/62 H 94 06/08/18 03:00 06/08/18 09:08 06/08/18 09:08 06/08/18 03:00 06/08/18 09:08 Intake & Output 06/07/18 06/08/18 06/09/18 06:59 06:59 06:59 Intake Total 790 1025 Output Total 1902024 Balance -1110 -1000 Weight 76 kg 74.4 kg Exam: General appearance: Initially on nasal cannula but requested to be on BiPAP since she was getting dyspneic, cooperative, well-developed, well-nourished Head exam: PRESENT: atraumatic, normocephalic Eye exam: PRESENT: Conjunctiva slightly pale, EOMI, PERRLA. ABSENT: conjunctival injection, scleral icterus Mouth exam: PRESENT: moist, neck supple, tongue midline Neck exam: PRESENT: full ROM. ABSENT: carotid bruit, JVD, lymphadenopathy, thyromegaly Respiratory exam: PRESENT: Diminished to auscultation bilaterally. ABSENT: rales, rhonchi, stridor, wheezes Cardiovascular exam: PRESENT: RRR, +S1, +S2. ABSENT: systolic murmur Pulses: PRESENT: normal radial pulses, normal dorsalis pedis pulses GI/Abdominal exam: PRESENT: normal bowel sounds, soft. ABSENT: guarding, mass, tenderness Rectal exam: Deferred Extremities exam: PRESENT: full ROM. ABSENT: calf tenderness, pedal edema Musculoskeletal: PRESENT: full ROM. ABSENT: deformity Neurological exam: PRESENT: alert, Awake, Oriented to person, Oriented to place , Oriented to time, reflexes normal, CN II-XII grossly intact. ABSENT: motor sensory deficit Psychiatric exam: PRESENT: appropriate affect, normal mood. ABSENT: homicidal ideation, suicidal ideation Skin exam: PRESENT: intact, dry, warm. ABSENT: rash Results Laboratory Results: 06/08/18 05:03 06/08/18 05:03 06/08/18 06/08/18 05:03 05:03 WBC 3.7 L RBC 3.56 L Hgb 10.7 L Hct 31.3 L MCV 88 MCH 30.2 MCHC 34.4 RDW 16.9 H Plt Count 197 Sodium 141.4 Potassium 4.0 Chloride 106 Carbon Dioxide 25 Anion Gap 10 BUN 44 H Creatinine 3.39 H Est GFR ( Amer) 16 L Est GFR (Non-Af Amer) 13 L Glucose 83 Calcium 8.6 Phosphorus 4.0 Magnesium 2.2 Albumin 2.7 L 06/06/18 06/06/18 06/07/18 15:44 21:45 03:49 Troponin I 0.032 0.034 0.034 Impressions: Chest X-Ray 06/07/18 06:00 IMPRESSION: Slight improved aeration of the lungs. Persistent opacities and effusions. Assessment & Plan - Diagnosis (1) Dyspnea Qualifiers: Dyspnea type: acute respiratory distress Qualified Code(s): R06.03 - Acute respiratory distress Is this a current diagnosis for this admission?: Yes Plan: Patient requiring BiPAP since admission. Considerations could be secondary to pulmonary congestion with fluid overload being a dialysis patient versus underlying pneumonia with hemoptysis. As far as I know the patient she has never been in a state of fluid overload as she still makes urine and has been compliant with her dialysis. I suspect that she must have some underlying pulmonary process going on especially with hemoptysis. Very cannot get as much as ultrafiltration as tolerated during dialysis today. May continue current Lasix IV as she is still makes urine. I will consult her technology development intern, Dr. Silverman and Dr. Leach is in agreement with this. (2) End stage renal failure on dialysis Is this a current diagnosis for this admission?: Yes Plan: We will do dialysis today for 3 hours, using the patient's AV fistula, with 3 potassium bath, blood flow rate of 450 mL per minute, dialysate flow rate of 800 mL per minute, ultrafiltration 3 L as tolerated, no heparin and no Procrit. Patient will be monitored here in the ICU while on the BiPAP and adjust treatment accordingly especially the ultrafiltration depending on the patient's response in blood pressure. (3) Anemia in chronic kidney disease Is this a current diagnosis for this admission?: Yes Plan: Procrit as needed during dialysis. (4) HTN (hypertension) Qualifiers: Is this a current diagnosis for this admission?: Yes Plan: She usually has intradialytic hypotension that is why she is on midodrine. Since blood pressure is acceptable this morning she may not need midodrine. (5) Hemoptysis Is this a current diagnosis for this admission?: Yes Plan: Consult pulmonary, Dr. Silverman. (6) COPD (chronic obstructive pulmonary disease) Qualifiers: COPD type: unspecified COPD Qualified Code(s): J44.9 - Chronic obstructive pulmonary disease, unspecified Is this a current diagnosis for this admission?: Yes (7) Coronary artery disease Qualifiers: Coronary Disease-Associated Artery/Lesion type: [place] artery Is this a current diagnosis for this admission?: Yes - Notes Notes: Thank you very much for this consultation. Discussed case with Dr. Leach. Discussed hemodialysis orders with her hemodialysis nurse. - Time Time Spent: 50 to 70 Minutes
[2018-06-08] MEDS: MIDODRINE HCL 5 MG TABLET PO SCH (13:15)
[2018-06-08] MEDS: CEFTRIAXONE SODIUM 1,000 MG in DEXTROSE 5%-WATER 50 ML IV SCH (13:23)
[2018-06-08] MEDS: CHOLECALCIFEROL (D3) 1,000 UNIT TABLET PO SCH (13:23)
[2018-06-08] MEDS: FLUTICASONE/SALMETEROL DISKUS 250-50 MCG/DOSE IH SCH ×2 (13:23→21:18)
[2018-06-08] MEDS: FEBUXOSTAT 40 MG TABLET PO SCH (13:23)
[2018-06-08] MEDS: TIOTROPIUM BROMIDE DPI 5 CAP/KIT (18 MCG/CAP) IH SCH (13:23)
[2018-06-08] MEDS: FUROSEMIDE INJ/PF 40 MG/4 ML SDV IV SCH ×2 (13:23→21:22)
[2018-06-08] MEDS: ASPIRIN 81 MG TABLET, ENT COATED PO SCH (13:24)
--- NOTE | 2018-06-08 14:14 | PDOC PROGRESS REPORT ---
Subjective Progress Note for:: 06/08/18 Subjective:: June 07, 2018-patient feels slightly better today. She she now has a productive cough with blood-tinged sputum. Chest x-ray now shows infiltrates under her pleural effusions. 06/08/2018-patient is in fact in the ICU undergoing hemodialysis. She is down to nasal cannula from her BiPAP. She has no acute complaints this morning. Reason For Visit: ESRD ON HEMODIALYSIS,ACUTE VOLUME OVERLOAD,HX CAD Physical Exam Vital Signs: Temp Pulse Resp BP Pulse Ox 97.4 F 72 20 130/69 H 94 06/08/18 07:00 06/08/18 09:08 06/08/18 09:08 06/08/18 07:00 06/08/18 09:08 Intake & Output 06/07/18 06/08/18 06/09/18 06:59 06:59 06:59 Intake Total 790 1025 Output Total 1900 5 Balance -1110 -1000 Weight 76 kg 74.4 kg General appearance: PRESENT: no acute distress, cooperative, well-developed Head exam: PRESENT: atraumatic, normocephalic Respiratory exam: PRESENT: clear to auscultation [place] - She just completed dialysis., symmetrical, unlabored. ABSENT: rales, rhonchi, wheezes Cardiovascular exam: PRESENT: RRR, +S1, +S2 GI/Abdominal exam: PRESENT: normal bowel sounds, soft. ABSENT: distended, guarding, tenderness Extremities exam: PRESENT: pedal edema Neurological exam: PRESENT: alert, awake, oriented to person, oriented to place , oriented to time, oriented to situation, CN II-XII grossly intact Psychiatric exam: PRESENT: appropriate affect, normal mood. ABSENT: agitated, anxious Skin exam: PRESENT: abrasion - Irritation on the bridge of the nose from the BiPAP mask Results Laboratory Results: 06/08/18 05:03 06/08/18 05:03 06/08/18 06/08/18 05:03 05:03 WBC 3.7 L RBC 3.56 L Hgb 10.7 L Hct 31.3 L MCV 88 MCH 30.2 MCHC 34.4 RDW 16.9 H Plt Count 197 Sodium 141.4 Potassium 4.0 Chloride 106 Carbon Dioxide 25 Anion Gap 10 BUN 44 H Creatinine 3.39 H Est GFR ( Amer) 16 L Est GFR (Non-Af Amer) 13 L Glucose 83 Calcium 8.6 Phosphorus 4.0 Magnesium 2.2 Albumin 2.7 L 06/06/18 06/06/18 06/07/18 15:44 21:45 03:49 Troponin I 0.032 0.034 0.034 Impressions: Chest X-Ray 06/07/18 06:00 IMPRESSION: Slight improved aeration of the lungs. Persistent opacities and effusions. Assessment & Plan - Diagnosis (1) Hemoptysis Is this a current diagnosis for this admission?: Yes Plan: June 07, 2018-the patient had a productive cough with blood-tinged sputum. I have asked for a sputum culture. Chest x-ray today revealed consolidations under the pleural effusions bilaterally. She does not have a white count but she is compromised because of multiple illnesses. I did start azithromycin and ceftriaxone until further results are available. 06/08/2018-after discussion with Dr. Neumann I found out that the hemoptysis has been ongoing for several weeks. The patient was scheduled to have an bronchoscopy with Dr. Silverman. Dr. Neumann will asked Dr. Silverman to see the patient during this hospitalization. (2) Congestive heart failure Qualifiers: Heart failure type: unspecified Heart failure chronicity: acute on chronic Qualified Code(s): I50.9 - Heart failure, unspecified Is this a current diagnosis for this admission?: Yes Plan: 06/06/2018-exact etiology is unknown. This is likely exacerbated by her renal failure. Chest x-ray is consistent with heart failure including effusions and pulmonary congestion. Because she does make urine we will try to diurese her as best as possible. Dr. Neumann will be following the patient as well. We will monitor her electrolytes and renal function. We will continue BiPAP until she is adequately diuresed. June 07, 2018-the patient is feeling better. Still with rales at bases. Chest x-ray now reveals infiltrates under the bilateral pleural effusions. She did have low blood pressure last evening. She had a negative fluid balance of 1.1 L. I will decrease her diuretics slightly. I would like to try and have a negative fluid balance of 1 L daily. 06/08/2018-dialysis to remove over 3 L of fluid today. The patient is quite comfortable. Dr. Neumann reported that the patient does not have a significant history of cardiac disease with congestive failure and the difficulty breathing could be related to a pulmonary process hence the investigation by Dr. Silverman we will continue the diuretic therapy as directed by Dr. Neumann. (3) End-stage renal disease on hemodialysis Is this a current diagnosis for this admission?: Yes Plan: 06/06/2018-she was due for dialysis today. She is next due on Friday. If all goes well we can diurese her without having her miss her scheduled hemodialysis on June 09. June 07, 2018-the patient's creatinine is rising. She is not scheduled for hemodialysis until Friday. Dr. Neumann has been consulted. She may require dialysis sooner. 06/08/2018-the patient normally is on dialysis on Friday and Friday. Because of her current state she underwent dialysis this morning. (4) COPD (chronic obstructive pulmonary disease) Qualifiers: COPD type: unspecified COPD Qualified Code(s): J44.9 - Chronic obstructive pulmonary disease, unspecified Is this a current diagnosis for this admission?: Yes Plan: 06/06/2018-continue current inhaler regimen. She is on BiPAP for her failure. This will also help with her COPD. June 07, 2018-was off of BiPAP briefly. She is back on it due to hypoxia. We will slowly taper her off of BiPAP. 06/08/2018-after dialysis the patient was on nasal cannula. We will continue her Advair and Spiriva. (5) Hypothyroidism Qualifiers: Hypothyroidism type: acquired Qualified Code(s): E03.9 - Hypothyroidism, unspecified Is this a current diagnosis for this admission?: Yes Plan: 06/06/2018-continue levothyroxine June 07, 2018-TSH is slightly low. At this time I will continue her levothyroxine at 125 mcg daily. Adjustments can be made as an outpatient. 06/08/2018-as noted above at this time. (6) History of CVA (cerebrovascular accident) Is this a current diagnosis for this admission?: Yes Plan: 06/06/2018-stable. Left leg weakness as of late effect of her stroke. Currently not anticoagulated with history of GI bleeding. June 07, 2018-stable. Continue same regimen. 06/08/2018-stable with no new deficits appreciated. (7) Coronary artery disease Qualifiers: Coronary Disease-Associated Artery/Lesion type: [place] artery Is this a current diagnosis for this admission?: Yes Plan: 06/06/2018-history of myocardial infarction with stent placement. Continue current regimen including statin therapy and aspirin. June 07, 2018-currently asymptomatic. Continue current treatment plan 06/08/2018-no complaints of chest pain. We will continue current medication regimen. (8) History of GI bleed Is this a current diagnosis for this admission?: Yes Plan: 06/06/2018-several episodes of GI bleeding. In fact she was due for colonoscopy on June later this month. At this time she is avoiding Plavix and Eliquis. June 07, 2018-no anticoagulation at this time. She is scheduled for colonoscopy this month. 06/08/2018-patient is having intermittent hemoptysis and with her history of GI bleeding she is not on anticoagulation therapy at this time. There has been no evidence of new GI bleeding. - Time Time Spent with patient: 15-24 minutes Medications reviewed and adjusted accordingly: Yes
[2018-06-08] MEDS: AZITHROMYCIN 500 MG in DEXTROSE 5%-WATER 250 ML IV SCH (16:47)
[2018-06-08] MEDS: SENNOSIDES/DOCUSATE 8.6-50 MG 1 EACH TABLET PO SCH (16:51)
[2018-06-08] MEDS: METOPROLOL SUCCINATE 50 MG TAB.SR.24H PO SCH (17:17)
[2018-06-08] MEDS: ATORVASTATIN CALCIUM 20 MG TABLET PO SCH (21:18)
[2018-06-09 05:40] LABS: INTERNATIONAL RATION (INR) 1.16; PROTHROMBIN TIME 15.4 SEC (11.4-15.4)
[2018-06-09 05:41] LABS: PARTIAL THROMBOPLASTIN TIME 30.2 SEC (23.5-35.8)
[2018-06-09] MEDS: LEVOTHYROXINE SODIUM 0.05 MG TABLET PO SCH (05:49)
[2018-06-09] MEDS: SENNOSIDES/DOCUSATE 8.6-50 MG 1 EACH TABLET PO SCH (08:36)
--- NOTE | 2018-06-09 09:07 | CONSULTATION REPORT E ---
Consultation Report NAME: EZRA SUERO : 1940 AGE: 78Y DATE: 06/08/2018 309 A TO: AZEB JHA M.D. FROM: GEENA bernal MD Requesting Physician HISTORY OF PRESENT ILLNESS: The patient is a 78-year-old female who came in Friday, 3 days ago, for worsening dyspnea. The patient has hemodialysis 3 days a week. The patient is on BiPAP. Currently feeling a little better, still complaining about 4 teaspoons of hemoptysis. This has been persistent for the last 3-4 weeks. It is not getting worse. Denies any purulent sputum production. No chest pain. No fever and chills. The patient was started on azithromycin and ceftriaxone this admission. No nausea, vomiting, diarrhea. PAST MEDICAL HISTORY: 1. Atrial fibrillation. 2. Coronary artery disease. 3. Myocardial infarction x1, stent placed in 2000. 4. Hyperlipidemia. 5. Hypertension. 6. History of pacemaker placement. 7. The patient has history of COPD. 8. Sleep apnea. 9. History of ischemic stroke. 10. Hypothyroidism. 11. End-stage renal disease requiring dialysis on Friday, Friday, Friday. 12. History of breast cancer, status post mastectomy. 13. History of GI bleeding March of 2018. 14. Anemia secondary to end-stage kidney disease. PAST SURGICAL HISTORY: 1. Appendectomy. 2. Cardiac cath. 3. Cholecystectomy. 4. Coronary stent placement in August of 2014. 5. Mastectomy. 6. Tubal ligation. 7. Vascular surgery, Perma-Cath placement. 9. AV graft for dialysis. SOCIAL HISTORY: Lives with family. Former smoker, but stopped in 2005. Denies any alcohol abuse. No recreational drug use. FAMILY HISTORY: History of CAD. MEDICATIONS: Home medications include: 1. Albuterol inhaler. 2. Aspirin 81 mg daily. 3. PhosLo 667 mg capsule daily q. 8. 5. Uloric 40 mg tablet. 6. Advair 250 diskhaler 1 puff BID. 7. Lasix 40 mg daily. 9. Synthroid. 10. Metoprolol. 11. Midodrine. 12. Nitrostat. 13. Crestor. 14. Sennoside. 15. Spiriva. 16. Ergocalciferol. ALLERGIES: 1. SULFA. 2. LYRICA. REVIEW OF SYSTEMS: CONSTITUTIONAL: No fever or chills. EYES: No jaundice or pallor. EARS, NOSE, AND THROAT: No ear drainage. No nasal discharge. CHEST AND LUNGS: no wheezing or rhonci or coarse crackles or rales. CARDIOVASCULAR: S1, S2 distinct. normal rate Regular rhythm. ABDOMEN: Flabby. Positive bowel sounds. Soft, nondistended, nontender. RESPIRATION: Complaining about increased shortness of breath with bilateral pleural effusion, which seems to be getting worse compared to the previous x-rays. GASTROINTESTINAL: No nausea, vomiting, diarrhea. GENITOURINARY: No dysuria or hematuria or flank pain. EXTREMITIES: No joint tenderness or cellulitis. PHYSICAL EXAMINATION: GENERAL: The patient is awake, alert, coherent, afebrile. Slightly in respiratory distress. VITAL SIGNS: Temperature of 98.7 with T-max of 99.1, blood pressure 90/54, respirations 21, saturation is 96% EYES: No jaundice or pallor. EARS, NOSE, AND THROAT: No ear drainage noted. No nasal discharge. CHEST AND LUNGS: No wheezing. Coarse crackles. No rhonchi noted. CARDIOVASCULAR: S1, S2 distinct. Normal rate and regular rhythm. ABDOMEN: Flabby. Positive bowel sounds. Soft, nondistended, nontender. EXTREMITIES: No joint swelling. No cellulitis. LABORATORY: CBC done today showed a white count of 3.7. Hemoglobin is 10.7, hematocrit 31.3, platelet count is 197. Chemistries done today showed sodium is 141.4, potassium 4, chloride 106, CO2 is 35, BUN is 44, creatinine is 3.29, glucose 83, and the calcium is 8.6. Phosphorus is 4 . NT-BNP is 20,300. Troponin I appeared to be within normal limits. A chest x-ray done 06/2018 showed bilateral pleural effusion. No pneumonia noted. ASSESSMENT: 1. Acute respiratory failure requiring BiPAP therapy, appears to be improving, stable. 2. Pulmonary edema/congestive heart failure with bilateral pleural effusions. 3. Pneumonia, concomitant, cannot be completely excluded. 4. Hemoptysis, persistent for the last 3-4 weeks, last week to 1/6 of a teaspoon- appeared stable PLAN AND RECOMMENDATIONS: 1. Will plan to perform flexible bronchoscopy once the patient becomes more stable and the heart failure appears to be improving. 2. We will do a chest ultrasound tomorrow. 3. Continue antibiotics. 4. Continue Advair and Spiriva inhaler. Albuterol inhaler as needed Will follow patient. We might put the patient on bronchoscopy schedule on if patient's breathing is improving. DICTATING PHYSICIAN: AZEB JHA MD,ANIBAL,MPH [id number] PHY#: [id number] ID: [id number] JOB#: [id number] ACCT: [id number] cc:AZEB JHA M.D. > MTDD
[2018-06-09] MEDS ORDERED: MIDODRINE HCL 5 MG TABLET PO SCH (10:00)
[2018-06-09] MEDS: CHOLECALCIFEROL (D3) 1,000 UNIT TABLET PO SCH (10:19)
[2018-06-09] MEDS: FUROSEMIDE INJ/PF 40 MG/4 ML SDV IV SCH ×2 (10:19→21:22)
[2018-06-09] MEDS: FLUTICASONE/SALMETEROL DISKUS 250-50 MCG/DOSE IH SCH ×2 (10:19→21:23)
[2018-06-09] MEDS: ASPIRIN 81 MG TABLET, ENT COATED PO SCH (10:19)
[2018-06-09] MEDS: CEFTRIAXONE SODIUM 1,000 MG in DEXTROSE 5%-WATER 50 ML IV SCH (10:20)
[2018-06-09] MEDS: TIOTROPIUM BROMIDE DPI 5 CAP/KIT (18 MCG/CAP) IH SCH (10:21)
[2018-06-09] MEDS: FEBUXOSTAT 40 MG TABLET PO SCH (10:23)
[2018-06-09] MEDS: AZITHROMYCIN 500 MG in DEXTROSE 5%-WATER 250 ML IV SCH (11:49)
--- NOTE | 2018-06-09 15:43 | PDOC PROGRESS REPORT ---
Subjective Progress Note for:: 06/09/18 Subjective:: June 07, 2018-patient feels slightly better today. She she now has a productive cough with blood-tinged sputum. Chest x-ray now shows infiltrates under her pleural effusions. 06/08/2018-patient is in fact in the ICU undergoing hemodialysis. She is down to nasal cannula from her BiPAP. She has no acute complaints this morning. 06/09/2018-the patient feels much better today. Dialysis took over 3 L of fluid off. She is also producing urine daily. Reason For Visit: ESRD ON HEMODIALYSIS,ACUTE VOLUME OVERLOAD,HX CAD Physical Exam Vital Signs: Temp Pulse Resp BP Pulse Ox 97.7 F 72 18 147/48 H 94 06/09/18 12:31 06/09/18 12:31 06/09/18 12:31 06/09/18 12:31 06/09/18 12:31 Intake & Output 06/08/18 06/09/18 06/10/18 06:59 06:59 06:59 Intake Total 1025 825 995 Output Total 5 3950 500 Balance -1000 -3125 495 Weight 74.4 kg 72.2 kg General appearance: PRESENT: no acute distress, cooperative, well-developed Exam: She is in the wheelchair on her way down for an echocardiogram. Head exam: PRESENT: atraumatic, normocephalic Respiratory exam: PRESENT: rales - Faint rales at bases, symmetrical, unlabored. ABSENT: chest wall tenderness, rhonchi, wheezes Cardiovascular exam: PRESENT: RRR, +S1, +S2, systolic murmur GI/Abdominal exam: PRESENT: normal bowel sounds, soft. ABSENT: distended, guarding, tenderness Neurological exam: PRESENT: alert, awake, oriented to person, oriented to place , oriented to time, oriented to situation, CN II-XII grossly intact Psychiatric exam: PRESENT: appropriate affect, normal mood Skin exam: PRESENT: abrasion - Bridge of nose Results Laboratory Results: 06/08/18 05:03 06/08/18 05:03 06/07/18 09:20 Sputum Gram Stain - Final 06/07/18 09:20 Sputum Sputum Culture - Final C.albicans/C.dubliniensis Reduced Normal Saima 06/06/18 06/06/18 06/07/18 15:44 21:45 03:49 Troponin I 0.032 0.034 0.034 Impressions: Chest X-Ray 06/07/18 06:00 IMPRESSION: Slight improved aeration of the lungs. Persistent opacities and effusions. Assessment & Plan - Diagnosis (1) Hemoptysis Is this a current diagnosis for this admission?: Yes Plan: June 07, 2018-the patient had a productive cough with blood-tinged sputum. I have asked for a sputum culture. Chest x-ray today revealed consolidations under the pleural effusions bilaterally. She does not have a white count but she is compromised because of multiple illnesses. I did start azithromycin and ceftriaxone until further results are available. 06/08/2018-after discussion with Dr. Neumann I found out that the hemoptysis has been ongoing for several weeks. The patient was scheduled to have an bronchoscopy with Dr. Silverman. Dr. Neumann will asked Dr. Silverman to see the patient during this hospitalization. 06/09/2018-Dr. Silverman is working with the patient. It is likely he will perform a bronchoscopy prior to her discharge. She is getting an echocardiogram at this time. (2) Congestive heart failure Qualifiers: Heart failure type: unspecified Heart failure chronicity: acute on chronic Qualified Code(s): I50.9 - Heart failure, unspecified Is this a current diagnosis for this admission?: Yes Plan: 06/06/2018-exact etiology is unknown. This is likely exacerbated by her renal failure. Chest x-ray is consistent with heart failure including effusions and pulmonary congestion. Because she does make urine we will try to diurese her as best as possible. Dr. Neumann will be following the patient as well. We will monitor her electrolytes and renal function. We will continue BiPAP until she is adequately diuresed. June 07, 2018-the patient is feeling better. Still with rales at bases. Chest x-ray now reveals infiltrates under the bilateral pleural effusions. She did have low blood pressure last evening. She had a negative fluid balance of 1.1 L. I will decrease her diuretics slightly. I would like to try and have a negative fluid balance of 1 L daily. 06/08/2018-dialysis to remove over 3 L of fluid today. The patient is quite comfortable. Dr. Neumann reported that the patient does not have a significant history of cardiac disease with congestive failure and the difficulty breathing could be related to a pulmonary process hence the investigation by Dr. Silverman we will continue the diuretic therapy as directed by Dr. Neumann. 06/09/2018-continue diuresis in addition to hemodialysis. (3) End-stage renal disease on hemodialysis Is this a current diagnosis for this admission?: Yes Plan: 06/06/2018-she was due for dialysis today. She is next due on Friday. If all goes well we can diurese her without having her miss her scheduled hemodialysis on June 09. June 07, 2018-the patient's creatinine is rising. She is not scheduled for hemodialysis until Friday. Dr. Neumann has been consulted. She may require dialysis sooner. 06/08/2018-the patient normally is on dialysis on Friday and Friday. Because of her current state she underwent dialysis this morning. 06/09/2018-continue hemodialysis (4) COPD (chronic obstructive pulmonary disease) Qualifiers: COPD type: unspecified COPD Qualified Code(s): J44.9 - Chronic obstructive pulmonary disease, unspecified Is this a current diagnosis for this admission?: Yes (5) Hypothyroidism Qualifiers: Hypothyroidism type: acquired Qualified Code(s): E03.9 - Hypothyroidism, unspecified Is this a current diagnosis for this admission?: Yes (6) History of CVA (cerebrovascular accident) Is this a current diagnosis for this admission?: Yes (7) Coronary artery disease Qualifiers: Coronary Disease-Associated Artery/Lesion type: [place] artery Is this a current diagnosis for this admission?: Yes (8) History of GI bleed Is this a current diagnosis for this admission?: Yes - Time Time Spent with patient: 15-24 minutes Medications reviewed and adjusted accordingly: Yes
--- NOTE | 2018-06-09 17:01 | RADIOLOGY REPORT (SQ) ---
EXAM DESCRIPTION: U/S CHEST COMPLETED DATE/TIME: 06/09/2018 4:46 pm REASON FOR STUDY: Quantify pleural effusion, bilateral COMPARISON: Chest films 06/07/2018, 06/06/2018, 03/14/2018 TECHNIQUE: Limited ultrasound over the right and left posterior chest was performed to evaluate for pleural fluid. LIMITATIONS: None. FINDINGS: Small bilateral pleural effusions are present. IMPRESSION: Small bilateral pleural effusions TECHNICAL DOCUMENTATION: JOB ID: [id number] [employer]- All Rights Reserved Reading location - IP/workstation name: [facility]
[2018-06-09] MEDS: METOPROLOL SUCCINATE 50 MG TAB.SR.24H PO SCH (18:03)
--- NOTE | 2018-06-09 20:23 | PDOC PROGRESS REPORT ---
Subjective Progress Note for:: 06/09/18 Subjective:: Patient was seen today sitting up in the chair next to her bed. At the time her was at her side. She was still SOB, but claimed that it was greatly improved. Her chest pain that has been going on for a week still remains but she claims that it is not getting worse. She denies N/V/D/C. Reason For Visit: ESRD ON HEMODIALYSIS,ACUTE VOLUME OVERLOAD,HX CAD Physical Exam Vital Signs: Temp Pulse Resp BP Pulse Ox 97.7 F 70 18 113/64 93 06/09/18 18:03 06/09/18 19:00 06/09/18 18:03 06/09/18 18:03 06/09/18 18:03 Intake & Output 06/08/18 06/09/18 06/10/18 06:59 06:59 06:59 Intake Total 7056 724 0572 Output Total 2024 3950 1200 Balance -1000 -3125 780 Weight 74.4 kg 72.2 kg General appearance: PRESENT: no acute distress, well-developed, well-nourished, other - -on oxygen via NC Mouth exam: PRESENT: neck supple Neck exam: ABSENT: JVD, tracheal deviation Respiratory exam: PRESENT: crackles, decreased breath sounds, rales. ABSENT: clear to auscultation ash[place], rhonchi, wheezes Cardiovascular exam: PRESENT: +S1, +S2 Extremities exam: PRESENT: pedal edema, +1 edema. ABSENT: tenderness, +2 edema Musculoskeletal exam: ABSENT: normal inspection, tenderness Neurological exam: PRESENT: alert, awake, oriented to person, oriented to place , oriented to time, oriented to situation Skin exam: PRESENT: dry, intact, warm. ABSENT: cyanosis Results Laboratory Results: 06/08/18 05:03 06/08/18 05:03 06/07/18 09:20 Sputum Gram Stain - Final 06/07/18 09:20 Sputum Sputum Culture - Final C.albicans/C.dubliniensis Reduced Normal Saima 06/06/18 06/06/18 06/07/18 15:44 21:45 03:49 Troponin I 0.032 0.034 0.034 Impressions: Chest X-Ray 06/07/18 06:00 IMPRESSION: Slight improved aeration of the lungs. Persistent opacities and effusions. Chest Ultrasound 06/09/18 09:00 IMPRESSION: Small bilateral pleural effusions Assessment & Plan - Diagnosis (1) Dyspnea Qualifiers: Dyspnea type: acute respiratory distress Qualified Code(s): R06.03 - Acute respiratory distress Is this a current diagnosis for this admission?: Yes Plan: multifactoral, will look to remove more fluid tomorrow with dialysis. Patient is also currently on several other treatments and seems to be showing some improvement. (2) End stage renal failure on dialysis Is this a current diagnosis for this admission?: Yes Plan: will look to arrange for dialysis tomorrow and will to remove more fluid. (3) Congestive heart failure Qualifiers: Heart failure type: unspecified Heart failure chronicity: acute on chronic Qualified Code(s): I50.9 - Heart failure, unspecified Is this a current diagnosis for this admission?: Yes Plan: Will look to remove more fluid tomorrow with dialysis. Patient is also on lasix. (4) Anemia in chronic kidney disease Is this a current diagnosis for this admission?: Yes (5) HTN (hypertension) Qualifiers: Is this a current diagnosis for this admission?: Yes Plan: currently controlled (6) Hemoptysis Is this a current diagnosis for this admission?: Yes Plan: per pulmonology (7) COPD (chronic obstructive pulmonary disease) Qualifiers: COPD type: unspecified COPD Qualified Code(s): J44.9 - Chronic obstructive pulmonary disease, unspecified Is this a current diagnosis for this admission?: Yes Plan: per pulmonology
[2018-06-09] MEDS: ATORVASTATIN CALCIUM 20 MG TABLET PO SCH (21:23)
--- NOTE | 2018-06-10 04:47 | PROGRESS NOTE E ---
Progress Note NAME: EZRA SUERO : 1940 AGE: 78Y DATE: 06/09/2018 ROOM: 309 SUBJECTIVE: The patient is a 78-year-old female who came in on June 06, 2018, for acute respiratory failure requiring BiPAP therapy, acute pulmonary edema with bilateral pleural effusion, decompensated congestive heart failure, COPD exacerbation. Currently improving. Blood pressure has been improving and stable this morning. Currently, the patient is not hypotensive. Still complaining about persistent hemoptysis, 1/6 to 1/4 teaspoon of blood almost every day. Denies any fever, chills. No chest pain. No purulent sputum production. No nausea, vomiting, diarrhea. The patient claims that she is breathing more comfortably. OBJECTIVE: GENERAL: The patient is awake, alert, oriented x3. VITAL SIGNS: Temperature 98.2, with a T-max of 98.7. Blood pressure is 101/58. Heart rate is 70, respirations 20. Saturation is 91% on 3 L nasal cannula. EYES: No jaundice or pallor. EARS, NOSE, AND THROAT: No ear drainage noted. No nasal discharge. HEAD AND NECK: No scalp swelling. No neck tenderness. CHEST AND LUNGS: No wheezing. No rhonchi. No coarse crackles. CARDIOVASCULAR: S1, S2 distinct. Normal rate. Regular rhythm. ABDOMEN: Flabby. Positive bowel sounds. Soft, nondistended, nontender. EXTREMITIES: No joint swelling. No cellulitis. LABORATORY: CBC done yesterday shows a white count of 3.7, hemoglobin is 10.7, hematocrit is 31.3, platelet count is 197. Chemistries done yesterday showed sodium is 141, potassium 4, chloride 106, CO2 is 25, BUN 44, creatinine is 3.39. Glucose is 83 and calcium is 8.6. PT is 15.4, INR is 1.16, and PTT is 30.2. Chest ultrasound done today showed a small amount of pleural effusion both lungs. ASSESSMENT: 1. HEMOPTYSIS, PERSISTENT OVER THE LAST SEVERAL WEEKS. SEEMED TO BE STABLE AND NOT GETTING WORSE. REVIEWED THE CHEST CT SCAN IN [facility]. NO APPARENT PARENCHYMAL ISSUES OR ENDOBRONCHIAL LESIONS. 2. PLEURAL EFFUSION BILATERAL. This most likely related to cardiac etiology plus/minus CKD/renal failure. 3. COPD/BRONCHIAL ASTHMA. Currently stable and not in acute bronchospasm. 4. PNEUMONIA COULD NOT BE COMPLETELY EXCLUDED. Currently on IV Rocephin and azithromycin. PLAN/RECOMMENDATIONS: 1. Will schedule patient for chest CT scan tonight without contrast. 2. Will schedule patient for flexible bronchoscopy on morning at 7:30 a.m. if patient remains stable in the next 24 hours. 3. Continue Advair 250 Diskhaler 1 puff b.i.d. 4. Continue Spiriva inhaler 1 capsule daily. 5. Continue albuterol inhaler as needed p.r.n. for breakthrough dyspnea or bronchospasm. Will follow patient. DICTATING PHYSICIAN: AZEB JHA MD,ANIBAL,MPH [id number] PHY#: [id number] ID: [id number] JOB#: [id number] ACCT: [id number] cc: > MTDD
[2018-06-10 05:00] LABS: HEMATOCRIT 33.6 % (36.0-47.0); HEMOGLOBIN 11.5 g/dL (12.0-15.5); MEAN CORPUSCULAR HGB CONC 34.3 g/dL (32.0-36.0); MEAN CORPUSCULAR VOLUME 88 fl (80-97); PLATELET COUNT 215 10^3/uL (150-450); RED BLOOD COUNT 3.84 10^6/uL (3.72-5.28); WHITE BLOOD COUNT 4.4 10^3/uL (4.0-10.5)
[2018-06-10] MEDS ORDERED: EPOETIN ALFA INJ 20000 UNIT/1 ML VIAL (RENAL) IV PRN (05:00)
[2018-06-10 05:22] LABS: ANION GAP 12 (5-19); BLOOD UREA NITROGEN 38 mg/dL (7-20); CALCIUM 9.2 mg/dL (8.4-10.2); CARBON DIOXIDE 27 mmol/L (22-30); CHLORIDE 101 mmol/L (98-107); GLUCOSE 90 mg/dL (75-110); SODIUM 139.9 mmol/L (137-145)
[2018-06-10] MEDS: LEVOTHYROXINE SODIUM 0.05 MG TABLET PO SCH (05:49)
--- NOTE | 2018-06-10 06:58 | RADIOLOGY REPORT (SQ) ---
EXAM DESCRIPTION: CT CHEST WITHOUT IV CONTRAST COMPLETED DATE/TME: 06/09/2018 22:37 CLINICAL HISTORY: 78 years Female, Persistent Hemoptysis Comparison:06/09/2018, CR Technique: No contrast. Coronal and sagittal reformat. This exam was performed according to our departmental dose-optimization program, which includes automated exposure control, adjustment of the mA and/or kV according to patient size and/or use of iterative reconstruction technique. [facility]: Dose Right [facility]: CareDose [facility]: Dose Right [facility]: Teradose 4D [facility]: [facility] LIMITATIONS: None Findings: Moderate bilateral pleural effusions. Moderate lingular consolidate. Moderate centrilobular emphysema. Coronary arterial calcification/stent. Atherosclerosis. Old granulomatous disease. Prominent mediastinal lymph nodes. Cardiac enlargement. Unenhanced inferior neck, axillae, airway, vasculature, upper abdomen, and musculoskeleton appear otherwise unremarkable. Impression: Moderate lingular pneumonia. Moderate bilateral pleural effusion. Recommend CR/CT surveillance including at 7-12 weeks following initiation of any clinically warranted therapy.
[2018-06-10] MEDS ORDERED: EPOETIN ALFA 5,000 UNIT in SYRINGE, DISPOSABLE, 1 EACH IV PRN (08:00)
[2018-06-10] MEDS: CEFTRIAXONE SODIUM 1,000 MG in DEXTROSE 5%-WATER 50 ML IV SCH (11:54)
[2018-06-10] MEDS: FUROSEMIDE INJ/PF 40 MG/4 ML SDV IV SCH ×2 (11:54→21:50)
[2018-06-10] MEDS: SENNOSIDES/DOCUSATE 8.6-50 MG 1 EACH TABLET PO SCH (11:55)
[2018-06-10] MEDS: FEBUXOSTAT 40 MG TABLET PO SCH (11:55)
[2018-06-10] MEDS: ASPIRIN 81 MG TABLET, ENT COATED PO SCH (11:55)
[2018-06-10] MEDS: CHOLECALCIFEROL (D3) 1,000 UNIT TABLET PO SCH (11:55)
[2018-06-10] MEDS: FLUTICASONE/SALMETEROL DISKUS 250-50 MCG/DOSE IH SCH ×2 (11:55→21:46)
[2018-06-10] MEDS: TIOTROPIUM BROMIDE DPI 5 CAP/KIT (18 MCG/CAP) IH SCH (11:55)
[2018-06-10] MEDS: AZITHROMYCIN 500 MG in DEXTROSE 5%-WATER 250 ML IV SCH (13:22)
--- NOTE | 2018-06-10 16:17 | PDOC PROGRESS REPORT ---
Subjective Progress Note for:: 06/10/18 Subjective:: Patient was seen today under going dialysis. At the time all vitals were stable and the patient appeared to be in no acute distress. She denied chest pain. SOB is somewhat improved. Orders were reviewed with supervising dialysis nurse Tammy to insure safety. Patient continues to cough up blood, according to a conversation with Dr. Neumann this morning she is arranged to get a bronchoscopy in the next couple of days. Reason For Visit: ESRD ON HEMODIALYSIS,ACUTE VOLUME OVERLOAD,HX CAD Physical Exam Vital Signs: Temp Pulse Resp BP Pulse Ox 97.3 F 76 24 H 92/56 L 97 06/10/18 15:03 06/10/18 15:03 06/10/18 15:03 06/10/18 15:03 06/10/18 15:03 Intake & Output 06/09/18 06/10/18 06/11/18 06:59 06:59 06:59 Intake Total 825 2335 288 Output Total 3950 2550 2325 Balance -3997 -129 -4 Weight 72.2 kg 72.4 kg General appearance: PRESENT: no acute distress, well-developed, well-nourished Mouth exam: PRESENT: moist, neck supple Neck exam: ABSENT: JVD, tracheal deviation Respiratory exam: PRESENT: crackles, decreased breath sounds, rales. ABSENT: clear to auscultation ashanti, rhonchi, wheezes Cardiovascular exam: PRESENT: +S1, +S2 Extremities exam: PRESENT: +1 edema. ABSENT: pedal edema, tenderness, +2 edema Musculoskeletal exam: PRESENT: normal inspection. ABSENT: tenderness Neurological exam: PRESENT: alert, awake, oriented to person, oriented to place , oriented to time, oriented to situation Skin exam: PRESENT: dry, intact, warm. ABSENT: cyanosis Results Laboratory Results: 06/10/18 04:38 06/10/18 04:38 06/10/18 06/10/18 04:38 04:38 WBC 4.4 RBC 3.84 Hgb 11.5 L Hct 33.6 L MCV 88 MCH 30.0 MCHC 34.3 RDW 17.0 H Plt Count 215 Sodium 139.9 Potassium 4.0 Chloride 101 Carbon Dioxide 27 Anion Gap 12 BUN 38 H Creatinine 3.43 H Est GFR ( Amer) 16 L Est GFR (Non-Af Amer) 13 L Glucose 90 Calcium 9.2 12/02/18 09:20 Sputum Gram Stain - Final 06/07/18 09:20 Sputum Sputum Culture - Final C.albicans/C.dubliniensis Reduced Normal Saima 06/06/18 06/06/18 06/07/18 15:44 21:45 03:49 Troponin I 0.032 0.034 0.034 Impressions: Chest X-Ray 06/07/18 06:00 IMPRESSION: Slight improved aeration of the lungs. Persistent opacities and effusions. Chest Ultrasound 06/09/18 09:00 IMPRESSION: Small bilateral pleural effusions Assessment & Plan - Diagnosis (1) Dyspnea Qualifiers: Dyspnea type: acute respiratory distress Qualified Code(s): R06.03 - Acute respiratory distress Is this a current diagnosis for this admission?: Yes Plan: multifactoral, will look to remove 2 to 3L as tolerated with dialysis. Patient is also currently on several other treatments and seems to be showing some improvement. (2) End stage renal failure on dialysis Is this a current diagnosis for this admission?: Yes Plan: Patient was seen today under going dialysis. At the time all vitals were stable and the patient appeared to be in no acute distress. She denied chest pain or SOB. Orders were reviewed with supervising dialysis nurse Tammy to insure safety. Will look to remove 2 to 3L as tolerated. (3) Congestive heart failure Qualifiers: Heart failure type: unspecified Heart failure chronicity: acute on chronic Qualified Code(s): I50.9 - Heart failure, unspecified Is this a current diagnosis for this admission?: Yes Plan: Will look to removed 2 to 3L as tolerated and continue on lasix (4) Anemia in chronic kidney disease Is this a current diagnosis for this admission?: Yes Plan: currently epogen is on hold with a hemoglobin above 11.5 (5) HTN (hypertension) Qualifiers: Is this a current diagnosis for this admission?: Yes Plan: currently controlled (6) Hemoptysis Is this a current diagnosis for this admission?: Yes Plan: per pulmonology (7) COPD (chronic obstructive pulmonary disease) Qualifiers: COPD type: unspecified COPD Qualified Code(s): J44.9 - Chronic obstructive pulmonary disease, unspecified Is this a current diagnosis for this admission?: Yes Plan: per pulmonology
[2018-06-10] MEDS: METOPROLOL SUCCINATE 50 MG TAB.SR.24H PO SCH (18:20)
[2018-06-10] MEDS ORDERED: GLUCAGON,HUMAN RECOMB 1 MG INJ SUBCUT PRN (20:42)
[2018-06-10] MEDS ORDERED: DEXTROSE 40% GEL 15 GM TUBE PO PRN ×2 (20:42)
[2018-06-10] MEDS ORDERED: DEXTROSE 50%-WATER 25 GM/50 ML DISP.SYRIN IV PRN ×2 (20:42)
[2018-06-10] MEDS: ATORVASTATIN CALCIUM 20 MG TABLET PO SCH (21:47)
[2018-06-11 04:05] LABS: ABSOLUTE BASOPHILS # (AUTO) 0.1 10^3/uL (0.0-0.2); ABSOLUTE EOSINOPHILS # (AUTO) 0.2 10^3/uL (0.0-0.6); ABSOLUTE LYMPHOCYTES (AUTO) 1.2 10^3/uL (0.5-4.7); ABSOLUTE MONOCYTES (AUTO) 0.4 10^3/uL (0.1-1.4); ABSOLUTE NEUT (AUTO) 2.8 10^3/uL (1.7-8.2); BASOPHILS % (AUTO) 1.9 % (0-2); EOSINOPHILS % (AUTO) 4.3 % (0-6); HEMOGLOBIN 11.7 g/dL (12.0-15.5); LYMPHOCYTES % (AUTO) 25.5 % (13-45); MEAN CORPUSCULAR HEMOGLOBIN 30.1 pg (27.0-33.4); MEAN CORPUSCULAR HGB CONC 34.5 g/dL (32.0-36.0); MEAN CORPUSCULAR VOLUME 87 fl (80-97); MONOCYTES % (AUTO) 8.3 % (3-13); PLATELET COUNT 195 10^3/uL (150-450); RED CELL DISTRIBUTION WIDTH 16.7 % (11.5-14.0); TOTAL CELLS COUNTED % (AUTO) 100 %; WHITE BLOOD COUNT 4.8 10^3/uL (4.0-10.5)
[2018-06-11 04:10] LABS: INTERNATIONAL RATION (INR) 1.05; PROTHROMBIN TIME 14.2 SEC (11.4-15.4)
[2018-06-11 04:11] LABS: PARTIAL THROMBOPLASTIN TIME 29.9 SEC (23.5-35.8)
[2018-06-11 04:39] LABS: ANION GAP 11 (5-19); BLOOD UREA NITROGEN 24 mg/dL (7-20); CALCIUM 8.8 mg/dL (8.4-10.2); CARBON DIOXIDE 29 mmol/L (22-30); CHLORIDE 97 mmol/L (98-107); GLUCOSE 96 mg/dL (75-110); POTASSIUM 3.8 mmol/L (3.6-5.0); SODIUM 137.2 mmol/L (137-145)
[2018-06-11] MEDS: LEVOTHYROXINE SODIUM 0.05 MG TABLET PO SCH (05:43)
--- NOTE | 2018-06-11 06:21 | PDOC PROGRESS REPORT ---
Subjective Progress Note for:: 06/10/18 Subjective:: June 07, 2018-patient feels slightly better today. She she now has a productive cough with blood-tinged sputum. Chest x-ray now shows infiltrates under her pleural effusions. 06/08/2018-patient is in fact in the ICU undergoing hemodialysis. She is down to nasal cannula from her BiPAP. She has no acute complaints this morning. 06/09/2018-the patient feels much better today. Dialysis took over 3 L of fluid off. She is also producing urine daily. 06/10/2018-the patient had dialysis earlier today. She reports that she continues to feel better daily. She is comfortable on nasal cannula. Her grandson is visiting at the bedside. Reason For Visit: ESRD ON HEMODIALYSIS,ACUTE VOLUME OVERLOAD,HX CAD Physical Exam Vital Signs: Temp Pulse Resp BP Pulse Ox 98.3 F 74 20 94/50 L 94 06/11/18 03:34 06/11/18 03:34 06/11/18 03:34 06/11/18 03:34 06/11/18 03:34 Intake & Output 06/09/18 06/10/18 06/11/18 06:59 06:59 06:59 Intake Total 825 2335 774 Output Total 3950 1650 7005 Balance -0364 -160 -0311 Weight 72.2 kg 72.4 kg General appearance: PRESENT: no acute distress, cooperative, well-developed Head exam: PRESENT: atraumatic, normocephalic Mouth exam: PRESENT: moist, tongue midline Respiratory exam: PRESENT: rales - Faint bilaterally, symmetrical, unlabored. ABSENT: accessory muscle use, rhonchi, wheezes Cardiovascular exam: PRESENT: RRR, +S1, +S2 GI/Abdominal exam: PRESENT: normal bowel sounds, soft. ABSENT: distended, guarding, rigid, tenderness Musculoskeletal exam: PRESENT: normal inspection Neurological exam: PRESENT: alert, awake, oriented to person, oriented to place , oriented to time, oriented to situation, CN II-XII grossly intact Psychiatric exam: PRESENT: anxious - Anticipating bronchoscopy tomorrow. ABSENT : agitated Focused psych exam: ABSENT: restlessness Skin exam: PRESENT: abrasion - The bridge of her nose is improving. Results Laboratory Results: 06/11/18 03:58 06/11/18 03:58 06/11/18 06/11/18 03:58 03:58 WBC 4.8 RBC 3.90 Hgb 11.7 L Hct 34.0 L MCV 87 MCH 30.1 MCHC 34.5 RDW 16.7 H Plt Count 195 Seg Neutrophils % 60.0 Lymphocytes % 25.5 Monocytes % 8.3 Eosinophils % 4.3 Basophils % 1.9 Absolute Neutrophils 2.8 Absolute Lymphocytes 1.2 Absolute Monocytes 0.4 Absolute Eosinophils 0.2 Absolute Basophils 0.1 Sodium 137.2 Potassium 3.8 Chloride 97 L Carbon Dioxide 29 Anion Gap 11 BUN 24 H Creatinine 2.52 H Est GFR ( Amer) 22 L Est GFR (Non-Af Amer) 19 L Glucose 96 Calcium 8.8 06/06/18 06/06/18 06/07/18 15:44 21:45 03:49 Troponin I 0.032 0.034 0.034 Impressions: Chest X-Ray 06/07/18 06:00 IMPRESSION: Slight improved aeration of the lungs. Persistent opacities and effusions. Chest Ultrasound 06/09/18 09:00 IMPRESSION: Small bilateral pleural effusions Assessment & Plan - Diagnosis (1) Hemoptysis Is this a current diagnosis for this admission?: Yes Plan: June 07, 2018-the patient had a productive cough with blood-tinged sputum. I have asked for a sputum culture. Chest x-ray today revealed consolidations under the pleural effusions bilaterally. She does not have a white count but she is compromised because of multiple illnesses. I did start azithromycin and ceftriaxone until further results are available. 06/08/2018-after discussion with Dr. Neumann I found out that the hemoptysis has been ongoing for several weeks. The patient was scheduled to have an bronchoscopy with Dr. Silverman. Dr. Neumann will asked Dr. Silverman to see the patient during this hospitalization. 06/09/2018-Dr. Silverman is working with the patient. It is likely he will perform a bronchoscopy prior to her discharge. She is getting an echocardiogram at this time. 06/10/2018-the patient did have a CT scan today. Dr. govea so you is performing bronchoscopy tomorrow. The patient continues to have hemoptysis (for 3 weeks now) (2) Congestive heart failure Qualifiers: Heart failure type: unspecified Heart failure chronicity: acute on chronic Qualified Code(s): I50.9 - Heart failure, unspecified Is this a current diagnosis for this admission?: Yes Plan: 06/06/2018-exact etiology is unknown. This is likely exacerbated by her renal failure. Chest x-ray is consistent with heart failure including effusions and pulmonary congestion. Because she does make urine we will try to diurese her as best as possible. Dr. Neumann will be following the patient as well. We will monitor her electrolytes and renal function. We will continue BiPAP until she is adequately diuresed. June 07, 2018-the patient is feeling better. Still with rales at bases. Chest x-ray now reveals infiltrates under the bilateral pleural effusions. She did have low blood pressure last evening. She had a negative fluid balance of 1.1 L. I will decrease her diuretics slightly. I would like to try and have a negative fluid balance of 1 L daily. 06/08/2018-dialysis to remove over 3 L of fluid today. The patient is quite comfortable. Dr. Neumann reported that the patient does not have a significant history of cardiac disease with congestive failure and the difficulty breathing could be related to a pulmonary process hence the investigation by Dr. Silverman we will continue the diuretic therapy as directed by Dr. Neumann. 06/09/2018-continue diuresis in addition to hemodialysis. 06/10/2018-the patient has accumulated a negative fluid balance of approximately 7 L since admission. This is a combination of responding to diuretics and her hemodialysis. Each day she feels better clinically. She will continue on dialysis until discharge. Bronchoscopy is today. Once these results are available he can be determined if further workup is needed as an inpatient or not. Purely from a congestive heart failure standpoint she is doing quite well. (3) End-stage renal disease on hemodialysis Is this a current diagnosis for this admission?: Yes Plan: 06/06/2018-she was due for dialysis today. She is next due on Friday. If all goes well we can diurese her without having her miss her scheduled hemodialysis on June 09. June 07, 2018-the patient's creatinine is rising. She is not scheduled for hemodialysis until Friday. Dr. Neumann has been consulted. She may require dialysis sooner. 06/08/2018-the patient normally is on dialysis on Friday and Friday. Because of her current state she underwent dialysis this morning. 06/09/2018-continue hemodialysis 06/10/2018-continue dialysis under the direction of nephrology. (4) COPD (chronic obstructive pulmonary disease) Qualifiers: COPD type: unspecified COPD Qualified Code(s): J44.9 - Chronic obstructive pulmonary disease, unspecified Is this a current diagnosis for this admission?: Yes Plan: 06/06/2018-continue current inhaler regimen. She is on BiPAP for her failure. This will also help with her COPD. June 07, 2018-was off of BiPAP briefly. She is back on it due to hypoxia. We will slowly taper her off of BiPAP. 06/08/2018-after dialysis the patient was on nasal cannula. We will continue her Advair and Spiriva. 06/10/2018-respiratory standpoint patient doing much better. This is likely due to diuresis. Continue current inhaler therapy. (5) Hypothyroidism Qualifiers: Hypothyroidism type: acquired Qualified Code(s): E03.9 - Hypothyroidism, unspecified Is this a current diagnosis for this admission?: Yes Plan: 06/06/2018-continue levothyroxine June 07, 2018-TSH is slightly low. At this time I will continue her levothyroxine at 125 mcg daily. Adjustments can be made as an outpatient. 06/08/2018-as noted above at this time. 06/10/2018-no change in medication. (6) History of CVA (cerebrovascular accident) Is this a current diagnosis for this admission?: Yes Plan: 06/06/2018-stable. Left leg weakness as of late effect of her stroke. Currently not anticoagulated with history of GI bleeding. June 07, 2018-stable. Continue same regimen. 06/08/2018-stable with no new deficits appreciated. 06/10/2018-no changes in her condition. Stable at this time. No changes in treatment. (7) Coronary artery disease Qualifiers: Coronary Disease-Associated Artery/Lesion type: [place] artery Is this a current diagnosis for this admission?: Yes Plan: 06/06/2018-history of myocardial infarction with stent placement. Continue current regimen including statin therapy and aspirin. June 07, 2018-currently asymptomatic. Continue current treatment plan 06/08/2018-no complaints of chest pain. We will continue current medication regimen. 06/10/2018-as noted above the patient has been responding to more aggressive diuresis. She has not exhibited any acute coronary symptoms. (8) History of GI bleed Is this a current diagnosis for this admission?: Yes Plan: 06/06/2018-several episodes of GI bleeding. In fact she was due for colonoscopy on June later this month. At this time she is avoiding Plavix and Eliquis. June 07, 2018-no anticoagulation at this time. She is scheduled for colonoscopy this month. 06/08/2018-patient is having intermittent hemoptysis and with her history of GI bleeding she is not on anticoagulation therapy at this time. There has been no evidence of new GI bleeding. 06/10/2018-no new GI bleeding however investigation of hemoptysis is ongoing. - Time Time Spent with patient: 15-24 minutes Medications reviewed and adjusted accordingly: Yes
[2018-06-11] MEDS: SENNOSIDES/DOCUSATE 8.6-50 MG 1 EACH TABLET PO SCH (07:54)
[2018-06-11] MEDS ORDERED: ONDANSETRON HCL INJ/PF 4 MG/2 ML SDV ONE (08:29)
[2018-06-11] MEDS ORDERED: DIPHENHYDRAMINE HCL 50 MG/ML VIAL ONE (08:29)
[2018-06-11] MEDS: MIDAZOLAM 2 MG/2 ML INJ ONE ×4 (08:29→08:37)
[2018-06-11] MEDS ORDERED: GLUCAGON,HUMAN RECOMB 1 MG INJ ONE (08:30)
[2018-06-11] MEDS ORDERED: EPINEPHRINE INJ 1 MG/10 ML DISP.SYRIN ONE (08:30)
[2018-06-11] MEDS ORDERED: NALOXONE HCL INJ/PF 0.4 MG/1 ML SDV ONE (08:30)
[2018-06-11] MEDS ORDERED: FLUMAZENIL INJ 0.5 MG/5 ML VIAL ONE (08:30)
[2018-06-11] MEDS: FENTANYL CITRATE INJ/PF 100 MCG/2 ML AMPUL ONE ×2 (08:31→08:41)
[2018-06-11] MEDS ORDERED: LIDOCAINE 2% INJ (20 MG/ML) 20 ML MDV ONE ×2 (08:34→08:35)
[2018-06-11] MEDS ORDERED: LIDOCAINE 2% JELLY 30 ML TUBE ONE (08:34)
[2018-06-11] MEDS: FUROSEMIDE INJ/PF 40 MG/4 ML SDV IV SCH ×2 (10:58→21:10)
[2018-06-11] MEDS: FLUTICASONE/SALMETEROL DISKUS 250-50 MCG/DOSE IH SCH ×2 (11:09→21:09)
[2018-06-11] MEDS: CEFTRIAXONE SODIUM 1,000 MG in DEXTROSE 5%-WATER 50 ML IV SCH (11:10)
[2018-06-11] MEDS: TIOTROPIUM BROMIDE DPI 5 CAP/KIT (18 MCG/CAP) IH SCH (11:10)
[2018-06-11] MEDS: ASPIRIN 81 MG TABLET, ENT COATED PO SCH (11:10)
[2018-06-11] MEDS: CHOLECALCIFEROL (D3) 1,000 UNIT TABLET PO SCH (11:11)
[2018-06-11] MEDS: FEBUXOSTAT 40 MG TABLET PO SCH (11:11)
[2018-06-11 12:46] LABS: FLUID TYPE BRONCHIAL WASH
[2018-06-11 12:47] LABS: FLUID COLOR COLORLESS; FLUID SOURCE LUNG
[2018-06-11 12:48] LABS: FLUID APPEARANCE CLOUDY; FLUID VISCOSITY MODERATELY VISCOUS
[2018-06-11] MEDS: AZITHROMYCIN 500 MG in DEXTROSE 5%-WATER 250 ML IV SCH (13:07)
[2018-06-11] MEDS: METOPROLOL SUCCINATE 50 MG TAB.SR.24H PO SCH (17:13)
--- NOTE | 2018-06-11 18:14 | PDOC PROGRESS REPORT ---
Subjective Progress Note for:: 06/11/18 Subjective:: June 07, 2018-patient feels slightly better today. She she now has a productive cough with blood-tinged sputum. Chest x-ray now shows infiltrates under her pleural effusions. 06/08/2018-patient is in fact in the ICU undergoing hemodialysis. She is down to nasal cannula from her BiPAP. She has no acute complaints this morning. 06/09/2018-the patient feels much better today. Dialysis took over 3 L of fluid off. She is also producing urine daily. 06/10/2018-the patient had dialysis earlier today. She reports that she continues to feel better daily. She is comfortable on nasal cannula. Her grandson is visiting at the bedside. 06/11/2018-once again the patient feels better today than yesterday. She is somewhat sleepy because she had a bronchoscopy earlier today. Reason For Visit: ESRD ON HEMODIALYSIS,ACUTE VOLUME OVERLOAD,HX CAD Physical Exam Vital Signs: Temp Pulse Resp BP Pulse Ox 97.4 F 80 21 H 90/50 L 96 06/11/18 15:36 06/11/18 15:36 06/11/18 15:36 06/11/18 15:36 06/11/18 15:36 Intake & Output 06/10/18 06/11/18 06/12/18 06:59 06:59 06:59 Intake Total 2335 774 1122 Output Total 2550 2565 200 Balance -215 -1791 922 Weight 72.4 kg 71.1 kg General appearance: PRESENT: no acute distress, cooperative, well-developed Head exam: PRESENT: atraumatic, normocephalic Respiratory exam: PRESENT: clear to auscultation [place], prolonged expiratory phas , symmetrical, unlabored. ABSENT: accessory muscle use, rales, rhonchi, wheezes Cardiovascular exam: PRESENT: RRR, +S1, +S2 GI/Abdominal exam: PRESENT: normal bowel sounds, soft. ABSENT: distended, guarding, tenderness Musculoskeletal exam: PRESENT: normal inspection Neurological exam: PRESENT: alert, awake, oriented to person, oriented to place , oriented to time, oriented to situation, CN II-XII grossly intact Psychiatric exam: PRESENT: appropriate affect, normal mood. ABSENT: agitated, anxious Focused psych exam: ABSENT: restlessness Results Laboratory Results: 06/11/18 03:58 06/11/18 03:58 06/11/18 06/11/18 06/11/18 03:58 03:58 08:44 WBC 4.8 RBC 3.90 Hgb 11.7 L Hct 34.0 L MCV 87 MCH 30.1 MCHC 34.5 RDW 16.7 H Plt Count 195 Seg Neutrophils % 60.0 Lymphocytes % 25.5 Monocytes % 8.3 Eosinophils % 4.3 Basophils % 1.9 Absolute Neutrophils 2.8 Absolute Lymphocytes 1.2 Absolute Monocytes 0.4 Absolute Eosinophils 0.2 Absolute Basophils 0.1 Sodium 137.2 Potassium 3.8 Chloride 97 L Carbon Dioxide 29 Anion Gap 11 BUN 24 H Creatinine 2.52 H Est GFR ( Amer) 22 L Est GFR (Non-Af Amer) 19 L Glucose 96 Calcium 8.8 Fluid Type BRONCHIAL WASH Fluid Source LUNG Fluid Color COLORLESS Fluid Appearance CLOUDY Fluid Viscosity MODERATELY VISCOUS Fluid WBC 350 Fluid RBC 60 06/06/18 06/06/18 06/07/18 15:44 21:45 03:49 Troponin I 0.032 0.034 0.034 Impressions: Chest X-Ray 06/07/18 06:00 IMPRESSION: Slight improved aeration of the lungs. Persistent opacities and effusions. Chest Ultrasound 06/09/18 09:00 IMPRESSION: Small bilateral pleural effusions Assessment & Plan - Diagnosis (1) Hemoptysis Is this a current diagnosis for this admission?: Yes Plan: June 07, 2018-the patient had a productive cough with blood-tinged sputum. I have asked for a sputum culture. Chest x-ray today revealed consolidations under the pleural effusions bilaterally. She does not have a white count but she is compromised because of multiple illnesses. I did start azithromycin and ceftriaxone until further results are available. 06/08/2018-after discussion with Dr. Neumann I found out that the hemoptysis has been ongoing for several weeks. The patient was scheduled to have an bronchoscopy with Dr. Silverman. Dr. Neumann will asked Dr. Silverman to see the patient during this hospitalization. 06/09/2018-Dr. Silverman is working with the patient. It is likely he will perform a bronchoscopy prior to her discharge. She is getting an echocardiogram at this time. 06/10/2018-the patient did have a CT scan today. do so you is performing bronchoscopy tomorrow. The patient continues to have hemoptysis (for 3 weeks now) 06/11/2018-bronchial washings were submitted from today's bronchoscopy. The patient is not aware of any significant findings on bronchoscopy. Await follow- up with Dr. Echevarria. (2) Congestive heart failure Qualifiers: Heart failure type: unspecified Heart failure chronicity: acute on chronic Qualified Code(s): I50.9 - Heart failure, unspecified Is this a current diagnosis for this admission?: Yes Plan: 06/06/2018-exact etiology is unknown. This is likely exacerbated by her renal failure. Chest x-ray is consistent with heart failure including effusions and pulmonary congestion. Because she does make urine we will try to diurese her as best as possible. Dr. Neumann will be following the patient as well. We will monitor her electrolytes and renal function. We will continue BiPAP until she is adequately diuresed. June 07, 2018-the patient is feeling better. Still with rales at bases. Chest x-ray now reveals infiltrates under the bilateral pleural effusions. She did have low blood pressure last evening. She had a negative fluid balance of 1.1 L. I will decrease her diuretics slightly. I would like to try and have a negative fluid balance of 1 L daily. 06/08/2018-dialysis to remove over 3 L of fluid today. The patient is quite comfortable. Dr. Neumann reported that the patient does not have a significant history of cardiac disease with congestive failure and the difficulty breathing could be related to a pulmonary process hence the investigation by Dr. Silverman we will continue the diuretic therapy as directed by Dr. Neumann. 06/09/2018-continue diuresis in addition to hemodialysis. 06/10/2018-the patient has accumulated a negative fluid balance of approximately 7 L since admission. This is a combination of responding to diuretics and her hemodialysis. Each day she feels better clinically. She will continue on dialysis until discharge. Bronchoscopy is today. Once these results are available he can be determined if further workup is needed as an inpatient or not. Purely from a congestive heart failure standpoint she is doing quite well. 06/11/2018-although the patient has a normal ejection fraction, on an echocardiogram L of this year she exhibited grade 2/4 diastolic dysfunction. With the good urine output stimulated by diuretics as well as hemodialysis the patient has shown significant improvement on a daily basis. We will continue her current regimen. Defer to nephrology if they wish to make any changes. (3) End-stage renal disease on hemodialysis Is this a current diagnosis for this admission?: Yes Plan: 06/06/2018-she was due for dialysis today. She is next due on Friday. If all goes well we can diurese her without having her miss her scheduled hemodialysis on June 09. June 07, 2018-the patient's creatinine is rising. She is not scheduled for hemodialysis until Friday. Dr. Neumann has been consulted. She may require dialysis sooner. 06/08/2018-the patient normally is on dialysis on Friday and Friday. Because of her current state she underwent dialysis this morning. 06/09/2018-continue hemodialysis 06/10/2018-continue dialysis under the direction of nephrology. 06/11/2018-the patient normally has dialysis on Friday and Friday. Unfortunately her sister just and the services are on Friday. I told her to make sure that Dr. Neumann knows this. She may opt to dialyze the patient on Friday and then next Friday. (4) COPD (chronic obstructive pulmonary disease) Qualifiers: COPD type: unspecified COPD Qualified Code(s): J44.9 - Chronic obstructive pulmonary disease, unspecified Is this a current diagnosis for this admission?: Yes Plan: 06/06/2018-continue current inhaler regimen. She is on BiPAP for her failure. This will also help with her COPD. June 07, 2018-was off of BiPAP briefly. She is back on it due to hypoxia. We will slowly taper her off of BiPAP. 06/08/2018-after dialysis the patient was on nasal cannula. We will continue her Advair and Spiriva. 06/10/2018-respiratory standpoint patient doing much better. This is likely due to diuresis. Continue current inhaler therapy. 06/11/2018-I believe her COPD has been stable and the breathing issues stem from her renal failure and diastolic dysfunction. We will continue her current inhaler regimen. (5) Hypothyroidism Qualifiers: Hypothyroidism type: acquired Qualified Code(s): E03.9 - Hypothyroidism, unspecified Is this a current diagnosis for this admission?: Yes Plan: 06/06/2018-continue levothyroxine June 07, 2018-TSH is slightly low. At this time I will continue her levothyroxine at 125 mcg daily. Adjustments can be made as an outpatient. 06/08/2018-as noted above at this time. 06/10/2018-no change in medication. 06/11/2018-continue levothyroxine 125 mcg daily (6) History of CVA (cerebrovascular accident) Is this a current diagnosis for this admission?: Yes Plan: 06/06/2018-stable. Left leg weakness as of late effect of her stroke. Currently not anticoagulated with history of GI bleeding. June 07, 2018-stable. Continue same regimen. 06/08/2018-stable with no new deficits appreciated. 06/10/2018-no changes in her condition. Stable at this time. No changes in treatment. 06/11/2018-the weakness in her left leg has not changed. I will order physical therapy because she has been weakened and mostly bedbound by this illness. (7) Coronary artery disease Qualifiers: Coronary Disease-Associated Artery/Lesion type: [place] artery Is this a current diagnosis for this admission?: Yes Plan: 06/06/2018-history of myocardial infarction with stent placement. Continue current regimen including statin therapy and aspirin. June 07, 2018-currently asymptomatic. Continue current treatment plan 06/08/2018-no complaints of chest pain. We will continue current medication regimen. 06/10/2018-as noted above the patient has been responding to more aggressive diuresis. She has not exhibited any acute coronary symptoms. 06/11/2018-again with the changes in medication as well as dialysis the patient has not exhibited any acute coronary symptoms. Continue current regimen. (8) History of GI bleed Is this a current diagnosis for this admission?: Yes Plan: 06/06/2018-several episodes of GI bleeding. In fact she was due for colonoscopy on June later this month. At this time she is avoiding Plavix and Eliquis. June 07, 2018-no anticoagulation at this time. She is scheduled for colonoscopy this month. 06/08/2018-patient is having intermittent hemoptysis and with her history of GI bleeding she is not on anticoagulation therapy at this time. There has been no evidence of new GI bleeding. 06/10/2018-no new GI bleeding however investigation of hemoptysis is ongoing. 06/11/2018-as above - Time Time Spent with patient: 15-24 minutes Medications reviewed and adjusted accordingly: Yes
[2018-06-11] MEDS: ATORVASTATIN CALCIUM 20 MG TABLET PO SCH (21:09)
[2018-06-12] MEDS ORDERED: NORMAL SALINE 1000 ML 1,000 ML IV PRN (05:00)
[2018-06-12] MEDS: MIDODRINE HCL 5 MG TABLET PO SCH (05:06)
[2018-06-12] MEDS: LEVOTHYROXINE SODIUM 0.05 MG TABLET PO SCH (05:07)
[2018-06-12 06:16] LABS: ABSOLUTE BASOPHILS # (AUTO) 0.1 10^3/uL (0.0-0.2); ABSOLUTE EOSINOPHILS # (AUTO) 0.2 10^3/uL (0.0-0.6); ABSOLUTE MONOCYTES (AUTO) 0.4 10^3/uL (0.1-1.4); ABSOLUTE NEUT (AUTO) 2.3 10^3/uL (1.7-8.2); BASOPHILS % (AUTO) 1.8 % (0-2); HEMATOCRIT 33.4 % (36.0-47.0); HEMOGLOBIN 11.5 g/dL (12.0-15.5); LYMPHOCYTES % (AUTO) 25.9 % (13-45); MEAN CORPUSCULAR HEMOGLOBIN 30.2 pg (27.0-33.4); MEAN CORPUSCULAR HGB CONC 34.3 g/dL (32.0-36.0); MEAN CORPUSCULAR VOLUME 88 fl (80-97); MONOCYTES % (AUTO) 9.3 % (3-13); PLATELET COUNT 200 10^3/uL (150-450); RED CELL DISTRIBUTION WIDTH 16.8 % (11.5-14.0); TOTAL CELLS COUNTED % (AUTO) 100 %
[2018-06-12 06:35] LABS: ANION GAP 13 (5-19); BLOOD UREA NITROGEN 39 mg/dL (7-20); CALCIUM 9.2 mg/dL (8.4-10.2); CARBON DIOXIDE 27 mmol/L (22-30); CHLORIDE 100 mmol/L (98-107); GLUCOSE 91 mg/dL (75-110); POTASSIUM 4.1 mmol/L (3.6-5.0)
[2018-06-12] MEDS ORDERED: AZITHROMYCIN 250 MG TABLET PO SCH (11:00)
[2018-06-12] MEDS ORDERED: NITROGLYCERIN 0.4 MG/TAB 25 TAB/BOTTLE SL ONE (14:00)
[2018-06-12] MEDS: SENNOSIDES/DOCUSATE 8.6-50 MG 1 EACH TABLET PO SCH (14:36)
[2018-06-12] MEDS: FLUTICASONE/SALMETEROL DISKUS 250-50 MCG/DOSE IH SCH ×2 (14:36→21:07)
[2018-06-12] MEDS: ASPIRIN 81 MG TABLET, ENT COATED PO SCH (14:36)
[2018-06-12] MEDS: FEBUXOSTAT 40 MG TABLET PO SCH (14:37)
[2018-06-12] MEDS: CHOLECALCIFEROL (D3) 1,000 UNIT TABLET PO SCH (14:37)
--- NOTE | 2018-06-12 16:14 | PDOC PROGRESS REPORT ---
Subjective Progress Note for:: 06/12/18 Subjective:: Patient was seen today under going dialysis. At the time all vitals were stable and the patient appeared to be in no acute distress. She denied chest pain. SOB is somewhat improved. Orders were reviewed with supervising dialysis nurse Tammy to insure safety. Patient continues to cough up blood, she had a bronchoscopy yesterday. Reason For Visit: ESRD ON HEMODIALYSIS,ACUTE VOLUME OVERLOAD,HX CAD Physical Exam Vital Signs: Temp Pulse Resp BP Pulse Ox 97.6 F 86 20 110/52 L 96 06/12/18 07:32 06/12/18 14:00 06/12/18 07:32 06/12/18 07:32 06/12/18 10:05 Intake & Output 06/11/18 06/12/18 06/13/18 06:59 06:59 06:59 Intake Total 774 1358 150 Output Total 2565 1650 Balance -1791 -292 150 Weight 71.1 kg 71.9 kg General appearance: PRESENT: no acute distress, well-developed, well-nourished Mouth exam: PRESENT: moist, neck supple Respiratory exam: PRESENT: crackles, decreased breath sounds, rales. ABSENT: clear to auscultation [place], rhonchi, wheezes Cardiovascular exam: PRESENT: +S1, +S2 Extremities exam: PRESENT: pedal edema. ABSENT: tenderness, +1 edema, +2 edema Neurological exam: PRESENT: alert, awake, oriented to person, oriented to place , oriented to time, oriented to situation Psychiatric exam: PRESENT: appropriate affect, normal mood Skin exam: PRESENT: dry, intact, warm. ABSENT: cyanosis Results Laboratory Results: 06/12/18 05:16 06/12/18 05:16 06/12/18 06/12/18 05:16 05:16 WBC 4.0 RBC 3.80 Hgb 11.5 L Hct 33.4 L MCV 88 MCH 30.2 MCHC 34.3 RDW 16.8 H Plt Count 200 Seg Neutrophils % 58.0 Lymphocytes % 25.9 Monocytes % 9.3 Eosinophils % 5.0 Basophils % 1.8 Absolute Neutrophils 2.3 Absolute Lymphocytes 1.0 Absolute Monocytes 0.4 Absolute Eosinophils 0.2 Absolute Basophils 0.1 Sodium 140.0 Potassium 4.1 Chloride 100 Carbon Dioxide 27 Anion Gap 13 BUN 39 H Creatinine 3.35 H Est GFR ( Amer) 16 L Est GFR (Non-Af Amer) 13 L Glucose 91 Calcium 9.2 06/06/18 06/06/18 06/07/18 15:44 21:45 03:49 Troponin I 0.032 0.034 0.034 Impressions: Chest X-Ray 06/07/18 06:00 IMPRESSION: Slight improved aeration of the lungs. Persistent opacities and effusions. Chest Ultrasound 06/09/18 09:00 IMPRESSION: Small bilateral pleural effusions Assessment & Plan - Diagnosis (1) Dyspnea Qualifiers: Dyspnea type: acute respiratory distress Qualified Code(s): R06.03 - Acute respiratory distress Is this a current diagnosis for this admission?: Yes Plan: multifactoral, will look to remove 1 to 2L as tolerated with dialysis. Patient is also currently on several other treatments and seems to be showing some improvement. (2) End stage renal failure on dialysis Is this a current diagnosis for this admission?: Yes Plan: Patient was seen today under going dialysis. At the time all vitals were stable and the patient appeared to be in no acute distress. She denied chest pain or SOB. Orders were reviewed with supervising dialysis nurse Tammy to insure safety. Will look to remove 1 to 2L as tolerated. (3) Congestive heart failure Qualifiers: Heart failure type: unspecified Heart failure chronicity: acute on chronic Qualified Code(s): I50.9 - Heart failure, unspecified Is this a current diagnosis for this admission?: Yes Plan: Will look to removed 1 to 2L as tolerated and continue on lasix (4) Anemia in chronic kidney disease Is this a current diagnosis for this admission?: Yes Plan: currently epogen is on hold with a hemoglobin above 11.5 (5) HTN (hypertension) Qualifiers: Is this a current diagnosis for this admission?: Yes Plan: currently controlled (6) Hemoptysis Is this a current diagnosis for this admission?: Yes Plan: per pulmonology (7) COPD (chronic obstructive pulmonary disease) Qualifiers: COPD type: unspecified COPD Qualified Code(s): J44.9 - Chronic obstructive pulmonary disease, unspecified Is this a current diagnosis for this admission?: Yes Plan: per pulmonology
[2018-06-12 17:08] LABS: ABSOLUTE BASOPHILS # (AUTO) 0.1 10^3/uL (0.0-0.2); ABSOLUTE EOSINOPHILS # (AUTO) 0.2 10^3/uL (0.0-0.6); ABSOLUTE MONOCYTES (AUTO) 0.5 10^3/uL (0.1-1.4); ABSOLUTE NEUT (AUTO) 3.5 10^3/uL (1.7-8.2); BASOPHILS % (AUTO) 1.5 % (0-2); HEMATOCRIT 37.5 % (36.0-47.0); HEMOGLOBIN 12.8 g/dL (12.0-15.5); LYMPHOCYTES % (AUTO) 19.2 % (13-45); MEAN CORPUSCULAR HEMOGLOBIN 29.8 pg (27.0-33.4); MEAN CORPUSCULAR HGB CONC 34.1 g/dL (32.0-36.0); MEAN CORPUSCULAR VOLUME 87 fl (80-97); MONOCYTES % (AUTO) 10.1 % (3-13); PLATELET COUNT 201 10^3/uL (150-450); RED CELL DISTRIBUTION WIDTH 16.6 % (11.5-14.0); SEGMENTED NEUTROPHILS % (AUTO) 66.2 % (42-78); TOTAL CELLS COUNTED % (AUTO) 100 %; WHITE BLOOD COUNT 5.3 10^3/uL (4.0-10.5)
[2018-06-12 17:23] LABS: ANION GAP 12 (5-19); CALCIUM 9.5 mg/dL (8.4-10.2); CARBON DIOXIDE 32 mmol/L (22-30); CHLORIDE 98 mmol/L (98-107); GLUCOSE 92 mg/dL (75-110); POTASSIUM 3.9 mmol/L (3.6-5.0); SODIUM 142.3 mmol/L (137-145)
[2018-06-12 17:37] LABS: BLOOD UREA NITROGEN 18 mg/dL (7-20)
[2018-06-12] MEDS: METOPROLOL SUCCINATE 50 MG TAB.SR.24H PO SCH (18:12)
[2018-06-12] MEDS: TIOTROPIUM BROMIDE DPI 5 CAP/KIT (18 MCG/CAP) IH SCH (18:12)
[2018-06-12] MEDS ORDERED: FLUCONAZOLE 100 MG TABLET PO ONE (19:00)
--- NOTE | 2018-06-12 19:20 | PDOC PROGRESS REPORT ---
Subjective Progress Note for:: 06/12/18 - Seen on rounds this afternoon Subjective:: States that she wants to go home. States that she has a to attend and would like to be there tomorrow. Reason For Visit: ESRD ON HEMODIALYSIS,ACUTE VOLUME OVERLOAD,HX CAD Physical Exam Vital Signs: Temp Pulse Resp BP Pulse Ox 98.4 F 90 20 94/54 L 96 06/12/18 15:44 06/12/18 15:44 06/12/18 15:44 06/12/18 15:44 06/12/18 15:44 Intake & Output 06/11/18 06/12/18 06/13/18 06:59 06:59 06:59 Intake Total 774 1358 390 Output Total 2565 1650 200 Balance -1791 -292 190 Weight 156 lb 11.979 oz 158 lb 8.198 oz General appearance: PRESENT: no acute distress Head exam: PRESENT: atraumatic, normocephalic Eye exam: PRESENT: EOMI. ABSENT: conjunctival injection Ear exam: PRESENT: normal external ear exam Mouth exam: PRESENT: tongue midline Neck exam: ABSENT: tracheal deviation Respiratory exam: PRESENT: clear to auscultation ashanti, symmetrical Cardiovascular exam: PRESENT: +S1, +S2 Pulses: PRESENT: +1 pedal pulses bilateral GI/Abdominal exam: PRESENT: normal bowel sounds, soft. ABSENT: tenderness Extremities exam: PRESENT: other - Mild edema of bilateral lower extremity Neurological exam: PRESENT: alert, awake, oriented to person, oriented to place , oriented to time, oriented to situation, CN II-XII grossly intact Skin exam: PRESENT: dry, warm Results Laboratory Results: 06/12/18 17:00 06/12/18 17:00 06/12/18 06/12/18 06/12/18 05:16 05:16 17:00 WBC 4.0 5.3 RBC 3.80 4.30 Hgb 11.5 L 12.8 Hct 33.4 L 37.5 MCV 88 87 MCH 30.2 29.8 MCHC 34.3 34.1 RDW 16.8 H 16.6 H Plt Count 200 201 Seg Neutrophils % 58.0 66.2 Lymphocytes % 25.9 19.2 Monocytes % 9.3 10.1 Eosinophils % 5.0 3.0 Basophils % 1.8 1.5 Absolute Neutrophils 2.3 3.5 Absolute Lymphocytes 1.0 1.0 Absolute Monocytes 0.4 0.5 Absolute Eosinophils 0.2 0.2 Absolute Basophils 0.1 0.1 Sodium 140.0 Potassium 4.1 Chloride 100 Carbon Dioxide 27 Anion Gap 13 BUN 39 H Creatinine 3.35 H Est GFR ( Amer) 16 L Est GFR (Non-Af Amer) 13 L Glucose 91 Calcium 9.2 06/12/18 17:00 WBC RBC Hgb Hct MCV MCH MCHC RDW Plt Count Seg Neutrophils % Lymphocytes % Monocytes % Eosinophils % Basophils % Absolute Neutrophils Absolute Lymphocytes Absolute Monocytes Absolute Eosinophils Absolute Basophils Sodium 142.3 Potassium 3.9 Chloride 98 Carbon Dioxide 32 H Anion Gap 12 BUN 18 D Creatinine 2.20 H Est GFR ( Amer) 26 L Est GFR (Non-Af Amer) 22 L Glucose 92 Calcium 9.5 06/06/18 06/06/18 06/07/18 15:44 21:45 03:49 Troponin I 0.032 0.034 0.034 06/12/18 17:00 Troponin I 0.019 Impressions: Chest X-Ray 06/07/18 06:00 IMPRESSION: Slight improved aeration of the lungs. Persistent opacities and effusions. Chest Ultrasound 06/09/18 09:00 IMPRESSION: Small bilateral pleural effusions Assessment & Plan - Diagnosis (1) Anemia in chronic kidney disease Is this a current diagnosis for this admission?: Yes (2) Congestive heart failure Qualifiers: Heart failure type: unspecified Heart failure chronicity: acute on chronic Qualified Code(s): I50.9 - Heart failure, unspecified Is this a current diagnosis for this admission?: Yes (3) End stage renal failure on dialysis Is this a current diagnosis for this admission?: Yes (4) Hemoptysis Is this a current diagnosis for this admission?: Yes (5) Hypothyroidism Qualifiers: Hypothyroidism type: acquired Qualified Code(s): E03.9 - Hypothyroidism, unspecified Is this a current diagnosis for this admission?: Yes (6) Hypertension Qualifiers: Hypertension type: essential hypertension Qualified Code(s): I10 - Essential (primary) hypertension Is this a current diagnosis for this admission?: Yes (7) Chest pain Is this a current diagnosis for this admission?: Yes - Plan Summary Plan Summary: Hemoptysis-status post bronchoscopy. Currently remains stable and has not having any more episodes. End-stage renal disease-on dialysis-did get her dialysis done today. She does follow-up with nephrology outpatient and gets dialysis Friday and Friday. Since she had her dialysis today she will not get her scheduled dialysis tomorrow. Chest pain-I spoke with school community relations coordinator this afternoon and she has cleared her to discharge home but she developed a chest pain inside of her chest. She tells me that she had this chest pain multiple times in the past and takes nitro sublingual which relieved her pain. I did give her the nitro sublingual and her pain went away within 5 minutes. Due to this fact I have not discharge her today. I have repeated all her labs including CBC, CMP and troponin. I did get a EKG which does not show any acute changes at this time. DC in a.m. if she remains asymptomatic.
[2018-06-12] MEDS: CEFTRIAXONE SODIUM 1,000 MG in DEXTROSE 5%-WATER 50 ML IV SCH (20:16)
[2018-06-12] MEDS: AZITHROMYCIN 500 MG in DEXTROSE 5%-WATER 250 ML IV SCH (20:16)
[2018-06-12] MEDS: FUROSEMIDE INJ/PF 40 MG/4 ML SDV IV SCH (20:16)
[2018-06-12] MEDS: ATORVASTATIN CALCIUM 20 MG TABLET PO SCH (21:07)
--- NOTE | 2018-06-13 02:42 | PROGRESS NOTE E ---
Progress Note NAME: EZRA SUERO : 1940 AGE: 78Y DATE: 06/12/2018 ROOM: 309 SUBJECTIVE: The patient is a 78-year-old female who underwent a flexible bronchoscopy yesterday with bronchial washing both lungs and visual inspection of the airway. There is no lesion noted on the vocal cord area or supraglottic and periglottic area. There are no lesions noted on the trachea, jeanne, the main stem bronchi, and segmental bronchi on both lungs. Bronchial washing was performed both lungs and bronchoalveolar lavage was performed in the left upper lobe lingular segment. Bronchoalveolar lavage came back with no apparent atypical cells or inflammatory cells or malignant cells. Bronchial washing results are pending. The patient claimed that she is breathing well. Denies any fever over the last 24 hours. Claims that she still coughs up blood tinged sputum. No lakhwinder hemoptysis. No nausea, vomiting, and diarrhea. No chest pain. Denies any worsening dyspnea. OBJECTIVE: GENERAL: The patient is awake, alert, coherent, oriented x3. VITAL SIGNS: Temperature 98.3 with a T-max of 98.5, pulse is 94, blood pressure is 96/55. Had hemodialysis this morning. Her blood pressure is usually on the low side after the hemodialysis. Respirations 20 and saturation is 93% on 3 liters. EYES: No jaundice or pallor. EARS, NOSE, AND THROAT: No ear drainage noted. No nasal discharge. HEAD AND NECK: No scalp swelling, no neck tenderness. CHEST AND LUNGS: No wheezing, no rhonchi, no coarse crackles. CARDIOVASCULAR: S1, S2 distinct. Normal rhythm, regular rate. ABDOMEN: Flabby, positive bowel sounds, soft, nondistended. EXTREMITIES: No joint swelling and no cellulitis. LABORATORY DATA: CBC done today shows a white count of 5.3, hemoglobin 12.8, hematocrit is 35.5, platelet count is 211. Chemistry done today showed sodium is 142, potassium is 3.9, chloride 98, CO2 is 32, BUN is 18, creatinine 2.2, glucose 92 and calcium is 9.2. ASSESSMENT: 1. HEMOPTYSIS. Most likely due to pulmonary edema. No endobronchial lesion. No intraluminal area lesions noted on both chest CT scan and flexible bronchoscopy. 2. LINGULAR INFILTRATE, PROBABLY PNEUMONIA. Continuing oral antibiotics for the next 7 days. Apparent distress. 3. COPD. Currently stable, not in exacerbation. 4. PULMONARY EDEMA/BILATERAL PLEURAL EFFUSIONS. Seems to be improving on hemodialysis. 5. CHRONIC KIDNEY DISEASE ON HEMODIALYSIS. RECOMMENDATIONS: 1. Continue Spiriva inhaler, Advair. 2. Recommend pulmonary follow up in 1 or 2 weeks following hospital discharge. 3. Will sign off today. DICTATING PHYSICIAN: AZEB JHA MD,ANIBAL,MPH [id number] PHY#: [id number] ID: [id number] JOB#: [id number] ACCT: [id number] cc: > MTDD
[2018-06-13] MEDS: LEVOTHYROXINE SODIUM 0.05 MG TABLET PO SCH (05:23)
[2018-06-13 09:07] LABS: ANION GAP 14 (5-19); BLOOD UREA NITROGEN 31 mg/dL (7-20); CALCIUM 9.5 mg/dL (8.4-10.2); CARBON DIOXIDE 29 mmol/L (22-30); CHLORIDE 95 mmol/L (98-107); GLUCOSE 88 mg/dL (75-110); SODIUM 137.5 mmol/L (137-145)
[2018-06-13] MEDS: ASPIRIN 81 MG TABLET, ENT COATED PO SCH (09:09)
[2018-06-13] MEDS: SENNOSIDES/DOCUSATE 8.6-50 MG 1 EACH TABLET PO SCH (09:09)
[2018-06-13] MEDS: FEBUXOSTAT 40 MG TABLET PO SCH (09:09)
[2018-06-13] MEDS: FLUTICASONE/SALMETEROL DISKUS 250-50 MCG/DOSE IH SCH (09:09)
[2018-06-13] MEDS: CHOLECALCIFEROL (D3) 1,000 UNIT TABLET PO SCH (09:09)
[2018-06-13] MEDS: TIOTROPIUM BROMIDE DPI 5 CAP/KIT (18 MCG/CAP) IH SCH (09:10)
--- NOTE | 2018-06-13 09:10 | EKG REPORT ---
SEVERITY:- ABNORMAL ECG - SINUS RHYTHM PROBABLE LEFT VENTRICULAR HYPERTROPHY BORDERLINE INFERIOR Q WAVES PROLONGED QT INTERVAL : Confirmed by: Brittni Alonso 13-Jun-2018 09:10:00
[2018-06-13] MEDS ORDERED: FUROSEMIDE 20 MG TABLET PO ONE (10:15)
[2018-06-13 10:29] VITALS: BP 96/72
--- NOTE | 2018-06-13 10:33 | RADIOLOGY REPORT (SQ) ---
EXAM DESCRIPTION: CHEST SINGLE VIEW COMPLETED DATE/TIME: 06/13/2018 10:20 am REASON FOR STUDY: pulm congestion- ?edema COMPARISON: 06/07/2018 EXAM PARAMETERS: NUMBER OF VIEWS: One view. TECHNIQUE: Single frontal radiographic view of the chest acquired. RADIATION DOSE: NA LIMITATIONS: None. FINDINGS: LUNGS AND PLEURA: Near complete clearing of the opacities at the bases. No evidence curre ntly for pleural effusions. MEDIASTINUM AND HILAR STRUCTURES: No masses. Contour normal. HEART AND VASCULAR STRUCTURES: Heart normal in size. Normal vasculature. BONES: No acute findings. HARDWARE: None in the chest. OTHER: No other significant finding. IMPRESSION: Near complete resolution of basilar opacities and effusions. TECHNICAL DOCUMENTATION: JOB ID: [id number] [employer]- All Rights Reserved Reading location - IP/workstation name: [email or web address]
--- NOTE | 2018-06-13 16:15 | PDOC DISCHARGE SUMMARY ---
General - Admit/Disc Date/PCP Admission Date/Primary Care Provider: 06/06/18 12:15 GIANNA BOURGEOIS MD Discharge Date: 06/13/18 - Seen on rounds early this morning - Discharge Diagnosis (1) Anemia in chronic kidney disease Is this a current diagnosis for this admission?: Yes (2) Congestive heart failure Is this a current diagnosis for this admission?: Yes (3) End stage renal failure on dialysis Is this a current diagnosis for this admission?: Yes (4) Hemoptysis Is this a current diagnosis for this admission?: Yes (5) Hypothyroidism Is this a current diagnosis for this admission?: Yes (6) Hypertension Is this a current diagnosis for this admission?: Yes (7) Chest pain Is this a current diagnosis for this admission?: Yes (8) Pneumonia Is this a current diagnosis for this admission?: Yes - Additional Information Resuscitation Status: Full Code Prescriptions: Levofloxacin [Levaquin 500 mg Tablet] 500 mg PO DAILY #7 tablet Home Medications: Albuterol Sulfate [Proair HFA] 2 puff IN Q3HP PRN 03/10/18 Aspirin [Ecotrin 81 mg EC Tablet] 81 mg PO DAILY 03/10/18 Calcium Acetate [Phoslo 667 mg Capsule] 667 mg PO Q8H 03/10/18 Febuxostat [Uloric 40 mg Tablet] 40 mg PO DAILY 03/10/18 Fluticasone/Salmeterol [Advair 250-50 Diskus 28 dose] 1 puff IN Q12 03/10/18 Furosemide [Lasix 40 mg Tablet] 20 mg PO SUMOWETHFR@1000 03/10/18 Levothyroxine Sodium [Synthroid 0.112 mg Tablet] 125 mcg PO DAILY 03/10/18 Metoprolol Succinate 50 mg PO QPM 03/10/18 Midodrine HCl 5 mg PO TUSA@1000 03/10/18 Nitroglycerin [Nitrostat 0.4 mg (1/150 Gr) Tabs 25/Bottle] 1 tab SL DAILYP PRN 03/10/18 Rosuvastatin Calcium [Crestor 10 mg Tablet] 10 mg PO QPM 03/10/18 Tiotropium Oak[place] [Spiriva] 1 puff IN DAILY 03/10/18 Ergocalciferol (Vitamin D2) [Vitamin D] 1,000 mg PO DAILY 04/13/18 Guaifenesin [Mucinex] 600 mg PO Q12 06/06/18 Levofloxacin [Levaquin 500 mg Tablet] 500 mg PO DAILY #7 tablet 06/13/18 History of Present Illness History of Present Illness: EZRA SUERO is a 78 year old female with COPD, ESRD on dialyssis who was admitted for Pneumonia and hemoptysis Hospital Course Hospital Course: she was started on IV rocephin and azithro- finished 5 days course. pulm recommends another 7 days of antibiotics with levaquin- will discharge on it due to her hemoptysis she underwent bronchoscopy but it was thought to be due to her pulm edema - no gross abnormalities were seen she did have dialysis on 06/12- usually she gets them every /friday. yesterday after dialysis she did have chest pain- states she gets them 2-3x/ month and takes nitro and it goes away. her c/p went away with nitro- i kept her to monitor her overnight- troponin elevated slightly but trended down- i think it was due to her dialysis. EKG did not show any changes. i advised her to follow up with her audit manager. spoke with family about this. gave strict return precautions this morning i listened to her lungs and there's some crackles at the bases. reviewed her chart- CT previously last week had showed pleural effusion- she needs follow up - spoke with family about repeating Ct in 1-2 months. i also noted that she's on lasix 5 days a week and hadn't received any in the last few days- normally she doesn't take her lasix on days of dialysis - hence she didn' t get it yesterday-got a chest xray this morning- and gave her lasix x1. advised to continue her routine. Physical Exam Vital Signs: Temp Pulse Resp BP Pulse Ox 98.0 F 82 17 85/58 L 95 06/13/18 07:21 06/13/18 07:21 06/13/18 07:21 06/13/18 07:21 06/13/18 07:21 Intake & Output 06/12/18 06/13/18 06/14/18 06:59 06:59 06:59 Intake Total 1358 630 Output Total 1650 2100 Balance -292 -1470 Weight 158 lb 8.198 oz 151 lb 7.321 oz General appearance: PRESENT: no acute distress Head exam: PRESENT: atraumatic, normocephalic Eye exam: PRESENT: EOMI. ABSENT: conjunctival injection, scleral icterus Ear exam: PRESENT: normal external ear exam Mouth exam: PRESENT: tongue midline Neck exam: ABSENT: tracheal deviation Respiratory exam: PRESENT: decreased breath sounds - bilaterally decreased- worse at the bases with some crackles appreciated, symmetrical. ABSENT: wheezes Cardiovascular exam: PRESENT: +S1, +S2 Pulses: PRESENT: +2 pedal pulses bilateral GI/Abdominal exam: PRESENT: normal bowel sounds, soft. ABSENT: tenderness Extremities exam: ABSENT: pedal edema Musculoskeletal exam: ABSENT: tenderness Neurological exam: PRESENT: alert, awake, oriented to person, oriented to place , oriented to time, oriented to situation, CN II-XII grossly intact Skin exam: PRESENT: dry, warm Results Laboratory Results: 06/12/18 17:00 06/13/18 08:12 06/12/18 06/12/18 06/13/18 17:00 17:00 08:12 WBC 5.3 RBC 4.30 Hgb 12.8 Hct 37.5 MCV 87 MCH 29.8 MCHC 34.1 RDW 16.6 H Plt Count 201 Seg Neutrophils % 66.2 Lymphocytes % 19.2 Monocytes % 10.1 Eosinophils % 3.0 Basophils % 1.5 Absolute Neutrophils 3.5 Absolute Lymphocytes 1.0 Absolute Monocytes 0.5 Absolute Eosinophils 0.2 Absolute Basophils 0.1 Sodium 142.3 137.5 Potassium 3.9 4.0 Chloride 98 95 L Carbon Dioxide 32 H 29 Anion Gap 12 14 BUN 18 D 31 H Creatinine 2.20 H 3.18 H Est GFR ( Amer) 26 L 17 L Est GFR (Non-Af Amer) 22 L 14 L Glucose 92 88 Calcium 9.5 9.5 06/06/18 06/06/18 06/07/18 15:44 21:45 03:49 Troponin I 0.032 0.034 0.034 06/12/18 06/12/18 06/13/18 17:00 20:00 08:12 Troponin I 0.019 0.025 0.019 Impressions: Chest X-Ray 06/07/18 06:00 IMPRESSION: Slight improved aeration of the lungs. Persistent opacities and effusions. Chest Ultrasound 06/09/18 09:00 IMPRESSION: Small bilateral pleural effusions Qualifiers - * PATIENT BEING DISCHARGED WITH ANY OF THE FOLLOWING DIAGNOSIS: No Plan Time Spent: Less than 30 Minutes
--- NOTE | 2018-07-12 06:37 | OPERATIVE REPORT E ---
Operative Report NAME: EZRA SUERO : 1940 AGE: 78Y DATE OF SURGERY: 06/11/2018 ROOM: 309 INDICATION: Hemoptysis for the last 4 weeks, had a pulmonary infiltrate left upper lobe . OPERATION: Flexible bronchoscopy with bronchial washing on both lungs and bronchoalveolar lavage on the left upper lobe, inferior lingular segment. SURGEON: AZEB JHA M.D. ANESTHESIA: Topical anesthesia using 2% lidocaine solution, 5 mL, via nebulizer; and 1% lidocaine through the bronchoscope. SEDATION: Conscious sedation using Versed to a total dose of 2 mg and fentanyl to a total dose of 50 mcg IV. BLOOD LOSS: None. COMPLICATIONS: None. SPECIMENS OBTAINED: Bronchial washing specimen and bronchioalveolar lavage specimen from the left upper lobe inferior lingular segment. OPERATIVE NOTE: Consent was obtained from the patient. The patient verbalized understanding of the indication, risks, potential complications to the procedure such as pneumothorax, bleeding, infection, or myocardial ischemia. The patient was connected to the patient monitor, pulse oximetry, blood pressure monitor, and respiratory monitor. The patient was given 2% lidocaine solution, 5 mL, via nebulizer. The patient was also given 2% lidocaine solution, 3 mL, via optimizer applied to the posterior oropharyngeal area. The patient was given Versed at increments of 0.5 mg, for a total dose of 2 mg, and IV fentanyl in increments of 3-5 mcg, for a total dose of 50 mcg. The flexible bronchoscope was inserted through the mouth guard. The vocal cords and preglottic areas were examined. They appeared normal. The 1% lidocaine solution was given in aliquots of 1 mL through the bronchoscope as the flexible bronchoscope was advanced through the trachea and through the segmental airway. The trachea appeared normal. The jeanne appeared sharp in the midline. The right mainstem bronchus and left mainstem bronchus appeared normal. The bronchus intermedius on both sides appeared normal. The segmental airways appeared normal. There are no endobronchial lesions noted. No sign of airway bleeding was noted. Bronchial washing was performed on the right lung; right upper lobe, right middle lobe, and right lower lobe, and the on the left lung- left upper lobe and lower lobes. The bronchoalveolar lavage was performed on the left upper lobe- inferior lingula. The patient tolerated the procedure well. There were no adverse events during the procedure. DICTATING PHYSICIAN: AZEB JHA MD,ANIBAL,MPH [id number] PHY#: [id number] ID: [id number] JOB#: [id number] ACCT: [id number] cc:AZEB JHA M.D. > MTDD
== END 2018-06-13 10:49 | disposition home or self-care (01) | DRG 193 ==
LOC: ER 08:39 → EH 12:15 → 3N 14:05
PROVIDERS: ADMIT Hospitalist; ATTEND Hospitalist
PROC: 5A09557 Assistance with Respiratory Ventilation, Greater than 96 Consecutive Hours, Continuous Positive Airway Pressure (ICD-10-PCS; 2018-06-06)
PROC: 3E0F73Z Introduction of Anti-inflammatory into Respiratory Tract, Via Natural or Artificial Opening (ICD-10-PCS; 2018-06-06)
PROC: 5A1D70Z Performance of Urinary Filtration, Intermittent, Less than 6 Hours Per Day (ICD-10-PCS; 2018-06-08)
PROC: 5A1D70Z Performance of Urinary Filtration, Intermittent, Less than 6 Hours Per Day (ICD-10-PCS; 2018-06-10)
PROC: 0BD98ZX Extraction of Lingula Bronchus, Via Natural or Artificial Opening Endoscopic, Diagnostic (ICD-10-PCS; 2018-06-11)
PROC: 0BD48ZX Extraction of Right Upper Lobe Bronchus, Via Natural or Artificial Opening Endoscopic, Diagnostic (ICD-10-PCS; 2018-06-11)
PROC: 0BD88ZX Extraction of Left Upper Lobe Bronchus, Via Natural or Artificial Opening Endoscopic, Diagnostic (ICD-10-PCS; 2018-06-11)
PROC: 0BD58ZX Extraction of Right Middle Lobe Bronchus, Via Natural or Artificial Opening Endoscopic, Diagnostic (ICD-10-PCS; 2018-06-11)
PROC: 0BD68ZX Extraction of Right Lower Lobe Bronchus, Via Natural or Artificial Opening Endoscopic, Diagnostic (ICD-10-PCS; 2018-06-11)
PROC: 0BDB8ZX Extraction of Left Lower Lobe Bronchus, Via Natural or Artificial Opening Endoscopic, Diagnostic (ICD-10-PCS; 2018-06-11)
PROC: 0B9G8ZX Drainage of Left Upper Lung Lobe, Via Natural or Artificial Opening Endoscopic, Diagnostic (ICD-10-PCS; principal; 2018-06-11 07:30)
PROC: 5A1D70Z Performance of Urinary Filtration, Intermittent, Less than 6 Hours Per Day (ICD-10-PCS; 2018-06-12)
DX: J18.9 Pneumonia, unspecified organism (principal); N18.6 End stage renal disease; R04.2 Hemoptysis; I13.2 Hypertensive heart and chronic kidney disease with heart failure and with stage 5 chronic kidney disease, or end stage renal disease; J44.0 Chronic obstructive pulmonary disease with (acute) lower respiratory infection; I69.354 Hemiplegia and hemiparesis following cerebral infarction affecting left non-dominant side; N25.81 Secondary hyperparathyroidism of renal origin; I25.10 Atherosclerotic heart disease of native coronary artery without angina pectoris; D63.1 Anemia in chronic kidney disease; I50.9 Heart failure, unspecified; E03.9 Hypothyroidism, unspecified; I48.0 Paroxysmal atrial fibrillation; G47.30 Sleep apnea, unspecified; E78.00 Pure hypercholesterolemia, unspecified; I25.2 Old myocardial infarction; Z95.5 Presence of coronary angioplasty implant and graft; Z79.82 Long term (current) use of aspirin; Z79.899 Other long term (current) drug therapy; Z95.0 Presence of cardiac pacemaker; Z85.3 Personal history of malignant neoplasm of breast; Z90.10 Acquired absence of unspecified breast and nipple; Z90.49 Acquired absence of other specified parts of digestive tract; Z87.891 Personal history of nicotine dependence; Z88.6 Allergy status to analgesic agent; Z88.2 Allergy status to sulfonamides; Z82.3 Family history of stroke; Z82.49 Family history of ischemic heart disease and other diseases of the circulatory system
CPT/HCPCS: 31624; 36415; 51702; 71045; 71250; 76604; 80048; 80053; 80069; 81001; 82550; 82553; 83735; 83880; 84443; 84484; 85025; 85027; 85610; 85730; 87015; 87040; 87070; 87101; 87116; 87205; 87206; 87486; 88104; 89050; 93005; 93010; 94660; 96365; 96375; 99291; J0171; J0456; J0696; J1200; J1610; J1940; J2250; J2310; J2405; J3010; J3490; J7060; J7620; Q4081

== ENCOUNTER 2018-07-22 10:54 | Inpatient (IN) | payer MEDICARE, OTHER ==
[2018-07-22 11:25] LABS: ABSOLUTE BASOPHILS # (AUTO) 0.1 10^3/uL (0.0-0.2); ABSOLUTE EOSINOPHILS # (AUTO) 0.1 10^3/uL (0.0-0.6); ABSOLUTE LYMPHOCYTES (AUTO) 1.1 10^3/uL (0.5-4.7); ABSOLUTE MONOCYTES (AUTO) 0.5 10^3/uL (0.1-1.4); ABSOLUTE NEUT (AUTO) 4.4 10^3/uL (1.7-8.2); BASOPHILS % (AUTO) 1.2 % (0-2); HEMATOCRIT 38.9 % (36.0-47.0); HEMOGLOBIN 13.2 g/dL (12.0-15.5); LYMPHOCYTES % (AUTO) 18.5 % (13-45); MEAN CORPUSCULAR HEMOGLOBIN 30.2 pg (27.0-33.4); MEAN CORPUSCULAR HGB CONC 33.9 g/dL (32.0-36.0); MEAN CORPUSCULAR VOLUME 89 fl (80-97); MONOCYTES % (AUTO) 7.4 % (3-13); PLATELET COUNT 243 10^3/uL (150-450); RED BLOOD COUNT 4.37 10^6/uL (3.72-5.28); SEGMENTED NEUTROPHILS % (AUTO) 70.9 % (42-78); TOTAL CELLS COUNTED % (AUTO) 100 %; WHITE BLOOD COUNT 6.2 10^3/uL (4.0-10.5)
--- NOTE | 2018-07-22 11:25 | RADIOLOGY REPORT (SQ) ---
EXAM DESCRIPTION: CT HEAD WITHOUT COMPLETED DATE/TIME: 07/22/2018 11:02 am REASON FOR STUDY: t1 stroke alert COMPARISON: CT brain 01/12/2018, 04/07/2011 Carotid Doppler 01/23/2018 MRI brain 01/22/2018 TECHNIQUE: Axial images acquired through the brain without intravenous contrast. Images reviewed wi th bone, brain and subdural windows. Additional sagittal and coronal reconstructions were generated. Images stored on PACS. All CT scanners at this facility use dose modulation, iterative reconstruction, and/or weight based d osing when appropriate to reduce radiation dose to as low as reasonably achievable (ALARA). [facility]: Dose Right [facility]: CareDose [facility]: Dose Right [facility]: Teradose 4D [facility]: [employer] RADIATION DOSE: 53.2 mGy. LIMITATIONS: None. FINDINGS: VENTRICLES: Normal size and contour. CEREBRUM: No masses. No hemorrhage. No midline shift. No evidence for acute infarction. Extensive small vessel ischemic change in the hemispheric white matter with diffuse low attenuation multiple ol d infarcts in the bilateral basal ganglia and right thalamus. CEREBELLUM: No masses. No hemorrhage. No alteration of density. No evidence for acute infarction. EXTRAAXIAL SPACES: No fluid collections. No masses. ORBITS AND GLOBE: No intra- or extraconal masses. Normal contour of globe without masses. CALVARIUM: No fracture. PARANASAL SINUSES: No fluid or mucosal thickening. SOFT TISSUES: No mass or hematoma. OTHER: No other significant finding. IMPRESSION: No acute findings. Extensive small vessel ischemic change in the hemispheric white polly er EVIDENCE OF ACUTE STROKE: NO. COMMENT: Pertinent findings on the imaging study reported as a CRITICAL RESULT to NÉSTOR VENTURA at11:10 on 07/22/2018. Category of Critical Result: CT CODE STROKE Quality ID # 436: Final reports with documentation of one or more dose reduction techniques (e.g., Au tomated exposure control, adjustment of the mA and/or kV according to patient size, use of iterative reconstruction technique) TECHNICAL DOCUMENTATION: JOB ID: [id number] [employer]- All Rights Reserved Reading location - IP/workstation name: [email or web address]
[2018-07-22 11:29] LABS: PARTIAL THROMBOPLASTIN TIME 28.6 SEC (23.5-35.8)
--- NOTE | 2018-07-22 11:31 | RADIOLOGY REPORT (SQ) ---
EXAM DESCRIPTION: CHEST SINGLE VIEW COMPLETED DATE/TIME: 07/22/2018 11:10 am REASON FOR STUDY: t1 stroke alert COMPARISON: 06/13/2018 and 04/05/2016. EXAM PARAMETERS: NUMBER OF VIEWS: One view. TECHNIQUE: Single frontal radiographic view of the chest acquired. RADIATION DOSE: NA LIMITATIONS: None. FINDINGS: LUNGS AND PLEURA: Mild interstitial prominence. No infiltrates, masses or pneumothorax. N o pleural effusion. MEDIASTINUM AND HILAR STRUCTURES: No masses. Contour normal. HEART AND VASCULAR STRUCTURES: Heart upper limits of normal in size. Normal vasculature. BONES: No acute findings. HARDWARE: None in the chest. OTHER: No other significant finding. IMPRESSION: CHRONIC INTERSTITIAL CHANGES. NO ACUTE RADIOGRAPHIC FINDING IN THE CHEST. TECHNICAL DOCUMENTATION: JOB ID: [id number] [employer]- All Rights Reserved Reading location - IP/workstation name: [email or web address]
[2018-07-22 11:33] LABS: PROTHROMBIN TIME 13.7 SEC (11.4-15.4)
--- NOTE | 2018-07-22 11:33 | ER Document Report ---
ED Neuro Symptoms/Deficit - General Notes: The patient had an episode of hypotension at dialysis which may have been the result of her nausea or may have been a vagal response to her nausea. During that hypotensive episode, she developed a left-sided weakness. She has a past history of a stroke with left-sided deficit. When her blood pressure came back up, the left-sided deficit resolved. At this time she does not appear to have any left-sided deficits. For these reasons, TPA is not indicated. The patient reports that she does make urine, that she does not drink as much water as she should. She had 0.8 L of fluid removed at dialysis today. Family confirms that she does not drink water like she should, and she is not on fluid restriction. <NIRMALA PALM - Last Filed: 07/22/18 13:59> - General Information source: Patient, Emergency Med Personnel Notes: 78-year-old female with prior CVA affecting her left side who presents to the emergency department today with complaints of stroke-like symptoms that began today while at dialysis. Patient states she felt at her baseline this morning upon awakening and through most of dialysis. Patient states with about 20 minutes left of dialysis she felt nauseated so she attempted to stand up from her chair and she was very wobbly and felt off balance. Dialysis nurses took the patient's blood pressure during this episode and it was found to be 60/40. Patient states that she felt as if her left side was weak and dialysis nurses noted a left-sided facial droop per EMS. EMS reports that they were told the weakness lasted for approximately 15-20 minutes. When the symptoms seemed to resolve the patient's blood pressure was taken again and was found to be 141/83. Patient states that she still feels like her left upper extremity is slightly weaker than baseline but does endorse that her weakness is much improved from earlier. TRAVEL OUTSIDE OF THE [place] IN LAST 30 DAYS: No <BETH BEE - Last Filed: 07/22/18 14:50> - General Chief Complaint: S/S of Possible Stroke Stated Complaint: POSSIBLE STROKE Time Seen by Provider: 07/22/18 11:22 - Related Data Allergies/Adverse Reactions: Sulfa (Sulfonamide Antibiotics) Allergy (Severe, Verified 04/13/18 10:02) unsure pregabalin [From Lyrica] Adverse Reaction (Severe, Verified 04/13/18 10:02) irritable,weight gain Past Medical History - General Information source: Patient, [facility] Records - Social History Smoking Status: Former Smoker - Stopped in 2005 Cigarette use (# per day): No Family History: Reviewed & Not Pertinent, CAD, Other - Past Medical History Cardiac Medical History: Reports: Hx Atrial Fibrillation - Paroxysmal, anticoagulation discontinued due to GI bleed episodes, Hx Coronary Artery Disease, Hx Heart Attack - [place] X1, STENT PLACED 2000, Hx Hypercholesterolemia, Hx Hypertension - Pt has hypotension at this time Pulmonary Medical History: Reports: Hx COPD - ON 3 L O2 NC CONTINUOUS, Hx Sleep Apnea Neurological Medical History: Reports: Hx Cerebrovascular Accident - CVA X3 LEFT WEAKER THAN RIGHT Endocrine Medical History: Reports: Hx Hypothyroidism Renal/ Medical History: Reports: Hx End Stage Renal Disease, Hx Hemodialysis - Dialyzes every Friday and Friday., Hx Renal Insufficiency - Chronic kidney disease stage III Malignancy Medical History: Reports: Hx Breast Cancer - Status post mastectomy GI Medical History: Reports: Hx ColonoscopyComment Only: Hx Ulcer - DIVERTICULITIS Musculoskeletal Medical History: Infectious Medical History: Past Surgical History: Reports: Hx Appendectomy, Hx Cardiac Catheterization, Hx Cardiac Surgery - STENT, Hx Cholecystectomy, Hx Coronary Stent - August 2014, Hx Mastectomy, Hx Tubal Ligation, Hx Vascular Surgery - PermCath placement for dialysis with subsequent AV graft for dialysis, Other - AV fistula formation for hemodialysis - Immunizations Hx Diphtheria, Pertussis, Tetanus Vaccination: Yes Hx Pneumococcal Vaccination: 07/07/12 <BETH BEE - Last Filed: 07/22/18 14:50> Review of Systems - Review of Systems Constitutional: No symptoms reported EENT: No symptoms reported Cardiovascular: No symptoms reported Respiratory: No symptoms reported Gastrointestinal: No symptoms reported Genitourinary: No symptoms reported Female Genitourinary: No symptoms reported Musculoskeletal: No symptoms reported Skin: No symptoms reported Hematologic/Lymphatic: No symptoms reported Neurological/Psychological: See HPI, Weakness - left sided, much resolved now -: Yes All other systems reviewed and negative <BETH BEE - Last Filed: 07/22/18 14:50> Physical Exam - Vital signs Vitals: Pulse Ox 99 07/22/18 10:56 <NIRMALA PALM - Last Filed: 07/22/18 13:59> - Vital signs Vitals: Pulse Ox 99 07/22/18 10:56 - Notes Notes: Physical Exam: General: Alert, appears well. HEENT: Normocephalic. Atraumatic. PERRL. Extraocular movements intact. Oropharynx clear. Very dry mucous membranes, thickened saliva. Neck: Supple. Non-tender. Respiratory: No respiratory distress. Clear and equal breath sounds bilaterally. Cardiovascular: Regular rate and rhythm. Abdominal: Normal Inspection. Non-tender. No distension. Normal Bowel Sounds. Back: Non-tender. No deformity or step off. Extremities: Moves all four extremities. Upper extremities: 5/5 project manager interior design strength on the right, 4/5 project manager interior design strength on the left . Normal ROM. Lower extremities: Normal inspection. No edema. Normal ROM, moves both lower extremities without difficulty. Neurological: Normal cognition. AAOx4. Normal speech. Cranial nerves II through XII grossly intact bilaterally. No facial motor weakness. Psychological: Normal affect. Normal Mood. Skin: Warm. Dry. Normal color. <BETH BEE - Last Filed: 07/22/18 14:50> Course - Vital Signs Vital signs: Temp Pulse Resp BP Pulse Ox 99 07/22/18 10:56 - Laboratory Result Diagrams: 07/22/18 10:50 07/22/18 10:50 Laboratory results interpreted by ar: 07/22/18 10:50 RDW 16.0 H - Diagnostic Test Radiology reviewed: Image reviewed, Reports reviewed - CT scan shows chronic white matter disease with chronic microvascular ischemic changes without acute event. - EKG Interpretation by Ia EKG shows normal: Sinus rhythm, [place], QRS Complexes. abnormal: Intervals - Borderline prolonged QT interval, ST-T Waves - Abnormal T waves in the lateral leads Rate: Normal - 72 Rhythm: NSR When compared to previous EKG there are: No significant change - Consults Dr. Sena Time consulted: 13:45 Consulted provider: will come to ER <NIRMALA PALM - Last Filed: 07/22/18 13:59> - Vital Signs Vital signs: Temp Pulse Resp BP Pulse Ox 99 07/22/18 10:56 - Laboratory Result Diagrams: 07/22/18 10:50 07/22/18 10:50 Laboratory results interpreted by me: 07/22/18 10:50 RDW 16.0 H <BETH BEE - Last Filed: 07/22/18 14:50> Critical Care Note - Critical Care Note Total time excluding time spent on procedures (mins): 40 <NIRMALA PALM - Last Filed: 07/22/18 13:59> ED [employer]/Exc Criteria ED NIH Stroke Scale Discharge - Discharge Admitting Provider: Hospitalist Unit Admitted: IMCU <NIRMALA PALM - Last Filed: 07/22/18 13:59> <BETH BEE - Last Filed: 07/22/18 14:50> - Discharge Clinical Impression: TIA (transient ischemic attack), Nausea, End stage renal failure on dialysis Hypotension Qualifiers: Hypotension type: unspecified hypotension type Qualified Code(s): I95.9 - Hypotension, unspecified Disposition: ADMITTED INPATIENT Scribe Documentation - Scribe Written by Scribe:: Srikanth Aguilar, 07/22/2018 1217 acting as scribe for :: Elizabeth <BETH BEE - Last Filed: 07/22/18 14:50>
[2018-07-22 11:42] LABS: ALANINE AMINOTRANSFERASE 26 U/L (9-52); ALKALINE PHOSPHATASE 84 U/L (38-126); ANION GAP 7 (5-19); ASPARTATE AMINO TRANSFERASE 27 U/L (14-36); BILIRUBIN,DIRECT 0.2 mg/dL (0.0-0.4); BILIRUBIN,TOTAL 0.8 mg/dL (0.2-1.3); BLOOD UREA NITROGEN 13 mg/dL (7-20); CALCIUM 8.9 mg/dL (8.4-10.2); CARBON DIOXIDE 32 mmol/L (22-30); CHLORIDE 100 mmol/L (98-107); CREATINE KINASE 25 U/L (30-135); GLUCOSE 92 mg/dL (75-110); POTASSIUM 4.1 mmol/L (3.6-5.0); SODIUM 138.5 mmol/L (137-145); TOTAL PROTEIN 6.5 g/dL (6.3-8.2)
[2018-07-22 11:54] LABS: TROPONIN I < 0.012 ng/mL
[2018-07-22 12:48] LABS: APPEARANCE,URINE CLEAR; BILIRUBIN,URINE NEGATIVE (NEGATIVE); COLOR,URINE YELLOW; GLUCOSE, URINE NEGATIVE (NEGATIVE); KETONES,URINE NEGATIVE (NEGATIVE); LEUKOCYTE ESTERASE,URINE TRACE (NEGATIVE); NITRITE,URINE NEGATIVE (NEGATIVE); PROTEIN,URINE 100 mg/dL (NEGATIVE); URINE SPECIFIC GRAVITY 1.006; UROBILINOGEN,URINE NEGATIVE mg/dL (<2.0)
[2018-07-22] MEDS ORDERED: ALBUTEROL SULFATE HFA (90 MCG/PUFF) 200 PUFF/8.5 GM MDI IH PRN (16:55)
[2018-07-22] MEDS ORDERED: LEVOTHYROXINE SODIUM 125 MG PO SCH (17:00)
--- NOTE | 2018-07-22 17:11 | RADIOLOGY REPORT (SQ) ---
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 MR dated 01/22/2018. TECHNIQUE: Multiplanar imaging includes non-contrasted T1, T2, FLAIR, and diffusion with ADC map seq uences. Images stored on PACS. LIMITATIONS: None. FINDINGS: ANATOMY: No anomalies. Normal vascular flow voids. Pituitary fossa normal. CSF SPACES: Atrophy induced prominence of ventricles and CSF spaces. CEREBRUM: High signal intensity lesions scattered throughout the white matter on FLAIR imaging with d istribution suggesting micro-vascular ischemic changes. No evidence of hemorrhage, mass, or extraaxi al fluid collection. POSTERIOR FOSSA: No signal alteration. No hemorrhage. No edema, masses or mass effect. Internal ann marie tory canals, cerebello-pontine angles, mastoids normal. DIFFUSION IMAGING: Negative for acute or sub-acute infarction. ORBITS: No masses. Globes normal. PARANASAL SINUSES: No fluid levels. Mucosa normal. OTHER: No other significant finding. IMPRESSION: ATROPHY AND CHRONIC MICRO-VASCULAR ISCHEMIC CHANGES. OTHERWISE NORMAL MRI OF THE BRAIN W ITHOUT INTRAVENOUS GADOLINIUM CONTRAST. EVIDENCE OF ACUTE STROKE: NO. TECHNICAL DOCUMENTATION: JOB ID: [id number] [employer]- All Rights Reserved Reading location - IP/workstation name: [email or web address]
--- NOTE | 2018-07-22 17:54 | EKG REPORT ---
SEVERITY:- ABNORMAL ECG - SINUS RHYTHM ABNORMAL T, CONSIDER ISCHEMIA, LATERAL LEADS BORDERLINE PROLONGED QT INTERVAL : Confirmed by: Brittni Alonso 22-Jul-2018 17:54:03
--- NOTE | 2018-07-22 18:31 | PDOC H&P ---
History of Present Illness Admission Date/PCP: 07/22/18 14:00 GIANNA BOURGEOIS MD Patient complains of: dizziness, acute on chronic left sided weakness History of Present Illness: EZRA SUERO is a 78 year old female with a past medical history of ESRD from [facility] on hemodialysis MWF, hypothyroidism, hypertension, 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 Patient says that she she was apparently fine and was at her baseline. She was almost done with dialysis and only had 20 minutes left prior to completion she w as noted and her blood pressure was noted to be severely low 57/35. She did have associated. She was also reported to have a left facial drooping and worsening of her left sided weakness. Dialysis was terminated. Her blood pressure promptly improved to. Her facial droop and acute left-sided weakness had largely resolved. She was evaluated in the ER and CT of the head was unremarkable. Upon encounter, patient says that her acute left-sided weakness persistent and did not really return to baseline. There is no apparent left facial drooping. She denies numbness on either extremities. Denies dizziness at the moment. No headaches, chest pain or shortness of breath. Past Medical History Cardiac Medical History: Reports: Atrial Fibrillation - Paroxysmal, anticoagulation discontinued due to GI bleed episodes, Coronary Artery Disease, Myocardial Infarction - [place] X1, STENT PLACED 2000, Hyperlipidema, Hypertension - Pt has hypotension at this time Denies: Congestive Heart Failure Pulmonary Medical History: Reports: Chronic Obstructive Pulmonary Disease (COPD) - ON 3 L O2 NC CONTINUOUS, Sleep Apnea Neurological Medical History: Denies: Seizures Endocrine Medical History: Reports: Hypothyroidism Denies: Diabetes Mellitus Type 2 Renal/ Medical History: Reports: End Stage Renal Disease Malignancy Medical History: Reports: Breast Cancer - Status post mastectomy GI Medical History: Musculoskeltal Medical History: Psychiatric Medical History: Denies: Depression Hematology: Reports: Anemia - Secondary to end-stage kidney disease Denies: Sickle Cell Disease Past Surgical History Past Surgical History: Reports: Appendectomy, Cardiac Catheterization, Cholecystectomy, Coronary Stent - August 2014, Mastectomy, Tubal Ligation, Vascular Surgery - PermCath placement for dialysis with subsequent AV graft for dialysis, Other - AV fistula formation for hemodialysis Denies: Amputation Social History Smoking Status: Former Smoker - Stopped in 2005 Frequency of Alcohol Use: None Hx Recreational Drug Use: No Drugs: None Hx Prescription Drug Abuse: No Family History Family History: Reviewed & Not Pertinent, CAD, Other Parental Family History Reviewed: Yes - no premature CAD Children Family History Reviewed: No Sibling(s) Family History Reviewed.: No Medication/Allergy Allergies/Adverse Reactions: Sulfa (Sulfonamide Antibiotics) Allergy (Severe, Verified 04/13/18 10:02) unsure pregabalin [From Lyrica] Adverse Reaction (Severe, Verified 04/13/18 10:02) irritable,weight gain Review of Systems All systems: reviewed and no additional remarkable complaints except as stated - as mentioned in HPI Physical Exam Vital Signs: Temp Pulse Resp BP Pulse Ox 69 16 154/68 H 96 07/22/18 12:00 07/22/18 12:46 07/22/18 12:46 07/22/18 12:46 Intake & Output 07/21/18 07/22/18 07/23/18 06:59 06:59 06:59 Weight 160 lb 4.417 oz General appearance: PRESENT: no acute distress, well-developed, well-nourished Head exam: PRESENT: atraumatic, normocephalic Eye exam: PRESENT: conjunctiva pink, EOMI, PERRLA. ABSENT: scleral icterus Ear exam: PRESENT: normal external ear exam Mouth exam: PRESENT: moist, tongue midline Neck exam: ABSENT: carotid bruit, JVD, lymphadenopathy, thyromegaly Respiratory exam: PRESENT: clear to auscultation [place]. ABSENT: rales, rhonchi, wheezes Cardiovascular exam: PRESENT: RRR. ABSENT: diastolic murmur, rubs, systolic murmur Pulses: PRESENT: normal dorsalis pedis pul GI/Abdominal exam: PRESENT: normal bowel sounds, soft. ABSENT: distended, guarding, mass, organolmegaly, rebound, tenderness Rectal exam: PRESENT: deferred Neurological exam: PRESENT: alert, awake, oriented to person, oriented to place, oriented to time, oriented to situation, CN II-XII grossly intact, motor sensory deficit - 3/5 strenght on both right arm and right leg Results Laboratory Results: 07/22/18 10:50 07/22/18 10:50 07/22/18 07/22/18 07/22/18 10:50 10:50 10:50 WBC 6.2 RBC 4.37 Hgb 13.2 Hct 38.9 MCV 89 MCH 30.2 MCHC 33.9 RDW 16.0 H Plt Count 243 Seg Neutrophils % 70.9 Lymphocytes % 18.5 Monocytes % 7.4 Eosinophils % 2.0 Basophils % 1.2 Absolute Neutrophils 4.4 Absolute Lymphocytes 1.1 Absolute Monocytes 0.5 Absolute Eosinophils 0.1 Absolute Basophils 0.1 Sodium 138.5 Potassium 4.1 Chloride 100 Carbon Dioxide 32 H Anion Gap 7 BUN 13 Creatinine 1.53 H Est GFR ( Amer) 40 L Est GFR (Non-Af Amer) 33 L Glucose 92 Calcium 8.9 Magnesium 1.8 Total Bilirubin 0.8 AST 27 ALT 26 Alkaline Phosphatase 84 Total Protein 6.5 Albumin 4.0 Urine Color Urine Appearance Urine pH Ur Specific [place] Urine Protein Urine Glucose (UA) Urine Ketones Urine Blood Urine Nitrite Ur Leukocyte Esterase Urine WBC (Auto) Urine RBC (Auto) 07/22/18 12:10 WBC RBC Hgb Hct MCV MCH MCHC RDW Plt Count Seg Neutrophils % Lymphocytes % Monocytes % Eosinophils % Basophils % Absolute Neutrophils Absolute Lymphocytes Absolute Monocytes Absolute Eosinophils Absolute Basophils Sodium Potassium Chloride Carbon Dioxide Anion Gap BUN Creatinine Est GFR ( Amer) Est GFR (Non-Af Amer) Glucose Calcium Magnesium Total Bilirubin AST ALT Alkaline Phosphatase Total Protein Albumin Urine Color YELLOW Urine Appearance CLEAR Urine pH 8.0 Ur Specific [place] 1.006 Urine Protein 100 H Urine Glucose (UA) NEGATIVE Urine Ketones NEGATIVE Urine Blood NEGATIVE Urine Nitrite NEGATIVE Ur Leukocyte Esterase TRACE H Urine WBC (Auto) 3 Urine RBC (Auto) 0 07/22/18 07/22/18 10:50 10:50 Creatine Kinase 25 L CK-MB (CK-2) 0.30 Troponin I < 0.012 Impressions: Chest X-Ray 07/22/18 10:56 IMPRESSION: CHRONIC INTERSTITIAL CHANGES. NO ACUTE RADIOGRAPHIC FINDING IN THE CHEST. Head CT 07/22/18 10:56 IMPRESSION: No acute findings. Extensive small vessel ischemic change in the hemispheric white matter EVIDENCE OF ACUTE STROKE: NO. Assessment & Plan - Diagnosis (1) Acute left-sided weakness Is this a current diagnosis for this admission?: Yes Plan: Patient has chronic left-sided residual from previous CVA. She is presenting with acute on chronic left-sided weakness and says that her left-sided weakness today has not returned to her baseline residual. She has a 3/5 motor strength in both the left arm and left leg. CT of the head in the ER was unremarkable. Will proceed with brain MRI. Noted patient developed symptoms around 9:50 AM. (2) Hypotension Qualifiers: Hypotension type: unspecified hypotension type Qualified Code(s): I95.9 - Hypotension, unspecified Is this a current diagnosis for this admission?: Yes Plan: Patient had acute hypotension during dialysis. She does say that she had similar episodes before and this will be the fourth time she dropped her blood pressures during dialysis. - Time Time Spent: 30 to 50 Minutes
[2018-07-22] MEDS: CALCIUM ACETATE 667 MG CAPSULE PO SCH (20:17)
[2018-07-22] MEDS: ASPIRIN 81 MG TABLET, ENT COATED PO SCH (20:17)
[2018-07-22] MEDS: METOPROLOL SUCCINATE 50 MG TAB.SR.24H PO SCH (20:17)
[2018-07-22] MEDS: HEPARIN SOD (PORCINE) 5,000 UNIT/ML 1 ML SYRINGE SUBCUT SCH (21:12)
[2018-07-22] MEDS: ATORVASTATIN CALCIUM 20 MG TABLET PO SCH (21:12)
[2018-07-22] MEDS: FLUTICASONE/SALMETEROL DISKUS 250-50 MCG/DOSE IH SCH (21:12)
[2018-07-23 05:07] LABS: ABSOLUTE BASOPHILS # (AUTO) 0.1 10^3/uL (0.0-0.2); ABSOLUTE EOSINOPHILS # (AUTO) 0.1 10^3/uL (0.0-0.6); ABSOLUTE LYMPHOCYTES (AUTO) 1.3 10^3/uL (0.5-4.7); ABSOLUTE MONOCYTES (AUTO) 0.5 10^3/uL (0.1-1.4); ABSOLUTE NEUT (AUTO) 2.3 10^3/uL (1.7-8.2); BASOPHILS % (AUTO) 1.3 % (0-2); EOSINOPHILS % (AUTO) 2.4 % (0-6); HEMATOCRIT 35.5 % (36.0-47.0); HEMOGLOBIN 12.3 g/dL (12.0-15.5); MEAN CORPUSCULAR HEMOGLOBIN 30.4 pg (27.0-33.4); MEAN CORPUSCULAR HGB CONC 34.6 g/dL (32.0-36.0); MEAN CORPUSCULAR VOLUME 88 fl (80-97); MONOCYTES % (AUTO) 10.8 % (3-13); PLATELET COUNT 219 10^3/uL (150-450); RED BLOOD COUNT 4.03 10^6/uL (3.72-5.28); RED CELL DISTRIBUTION WIDTH 16.2 % (11.5-14.0); SEGMENTED NEUTROPHILS % (AUTO) 54.5 % (42-78); TOTAL CELLS COUNTED % (AUTO) 100 %; WHITE BLOOD COUNT 4.2 10^3/uL (4.0-10.5)
[2018-07-23] MEDS: LANSOPRAZOLE 30 MG TAB.RAP.DR PO SCH (05:08)
[2018-07-23] MEDS: LEVOTHYROXINE SODIUM 0.025 MG TABLET PO SCH (05:08)
[2018-07-23] MEDS: LEVOTHYROXINE SODIUM 0.1 MG TABLET PO SCH (05:08)
[2018-07-23 05:28] LABS: ANION GAP 8 (5-19); BLOOD UREA NITROGEN 21 mg/dL (7-20); CALCIUM 9.3 mg/dL (8.4-10.2); CARBON DIOXIDE 25 mmol/L (22-30); CHLORIDE 108 mmol/L (98-107); GLUCOSE 81 mg/dL (75-110); POTASSIUM 4.2 mmol/L (3.6-5.0); SODIUM 140.5 mmol/L (137-145)
[2018-07-23] MEDS: CALCIUM ACETATE 667 MG CAPSULE PO SCH ×3 (09:50→17:34)
[2018-07-23] MEDS: ASPIRIN 81 MG TABLET, ENT COATED PO SCH (09:50)
[2018-07-23] MEDS: CHOLECALCIFEROL (D3) 1,000 UNIT TABLET PO SCH (09:50)
[2018-07-23] MEDS: HEPARIN SOD (PORCINE) 5,000 UNIT/ML 1 ML SYRINGE SUBCUT SCH ×2 (09:51→22:08)
[2018-07-23] MEDS: FLUTICASONE/SALMETEROL DISKUS 250-50 MCG/DOSE IH SCH ×2 (09:51→22:08)
--- NOTE | 2018-07-23 15:36 | PDOC PROGRESS REPORT ---
Subjective Progress Note for:: 07/23/18 Subjective:: EZRA SUERO is a 78 year old female with a past medical history of ESRD from [facility] on hemodialysis MWF, hypothyroidism, hypertension, 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 She was admitted for possible TIA. No acute event overnight. Patient's left sided weakness improved and this morning, she says she is back to her baseline left sided residual. Left sided power is better today at 4/5. No recurrence of hypotension. She failed bedside swallow eval yesterday but passed formal eval by speech therapy who recommended mechanical soft, thin liquid diet. 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 ABSENT: scleral icterus Ear exam: PRESENT: normal external ear exam Mouth exam: PRESENT: moist, tongue midline Neck exam: ABSENT: carotid bruit, JVD, lymphadenopathy, thyromegaly Respiratory exam: PRESENT: clear to auscultation [place]. ABSENT: rales, rhonchi, wheezes Cardiovascular exam: PRESENT: RRR. ABSENT: diastolic murmur, rubs, systolic murmur Pulses: PRESENT: normal dorsalis pedis pul GI/Abdominal exam: PRESENT: normal bowel sounds, soft. ABSENT: distended, guarding, mass, organolmegaly, rebound, tenderness Rectal exam: PRESENT: deferred Neurological exam: PRESENT: alert, awake, oriented to person, oriented to place, oriented to time, oriented to situation, CN II-XII grossly intact, motor sensory deficit - 4/5 strength (improved, baseline) on left UE and left LE Results Laboratory Results: 07/23/18 04:45 07/23/18 04:45 07/23/18 07/23/18 04:45 04:45 WBC 4.2 RBC 4.03 Hgb 12.3 Hct 35.5 L MCV 88 MCH 30.4 MCHC 34.6 RDW 16.2 H Plt Count 219 Seg Neutrophils % 54.5 Lymphocytes % 31.0 Monocytes % 10.8 Eosinophils % 2.4 Basophils % 1.3 Absolute Neutrophils 2.3 Absolute Lymphocytes 1.3 Absolute Monocytes 0.5 Absolute Eosinophils 0.1 Absolute Basophils 0.1 Sodium 140.5 Potassium 4.2 Chloride 108 H Carbon Dioxide 25 Anion Gap 8 BUN 21 H Creatinine 2.34 H Est GFR ( Amer) 24 L Est GFR (Non-Af Amer) 20 L Glucose 81 Calcium 9.3 07/22/18 07/22/18 10:50 10:50 Creatine Kinase 25 L CK-MB (CK-2) 0.30 Troponin I < 0.012 Impressions: Chest X-Ray 07/22/18 10:56 IMPRESSION: CHRONIC INTERSTITIAL CHANGES. NO ACUTE RADIOGRAPHIC FINDING IN THE CHEST. Head CT 07/22/18 10:56 IMPRESSION: No acute findings. Extensive small vessel ischemic change in the hemispheric white matter EVIDENCE OF ACUTE STROKE: NO. Head MRI 07/22/18 14:24 IMPRESSION: ATROPHY AND CHRONIC MICRO-VASCULAR ISCHEMIC CHANGES. OTHERWISE NORMAL MRI OF THE BRAIN WITHOUT INTRAVENOUS GADOLINIUM CONTRAST. EVIDENCE OF ACUTE STROKE: NO. Assessment & Plan - Diagnosis (1) Acute left-sided weakness Is this a current diagnosis for this admission?: Yes Plan: Improved. Patient has chronic left-sided residual from previous CVA. MRI brain was negative for acute CVA. Her left sided weakness has improved to her baseline today. She likely had a TIA. Reviewed previous notes. Appears, patient has possible subclavian steal in previous carotid Doppler in 2017. She says she was told about this in the past and was seen by a specialist in [place] but was told surgical intervention for this was high risk hence was recommended to monitor her symptoms for now. She does say however, similar issues of dizziness and hypotension during dialysis have been becoming more frequent in the past several months. Will order CTA of the head and neck to further reassess this. Discussed with nephrology, she will be dialyzed tomorrow. (2) Subclavian steal syndrome Is this a current diagnosis for this admission?: Yes Plan: CTA of the head and neck as mentioned. (3) Hypotension Qualifiers: Hypotension type: unspecified hypotension type Qualified Code(s): I95.9 - Hypotension, unspecified Is this a current diagnosis for this admission?: Yes Plan: Patient had acute hypotension during dialysis. She does say that she had similar episodes before and this will be the fourth time she dropped her blood pressures during dialysis. - Time Time Spent with patient: 25-34 minutes
[2018-07-23] MEDS: METOPROLOL SUCCINATE 50 MG TAB.SR.24H PO SCH (17:34)
--- NOTE | 2018-07-23 17:38 | PDOC CONSULTATION ---
Consultation Consult Date: 07/23/18 Attending physician:: ROX PUCKETT Consult reason:: I was asked to see the patient to help in management of patient with end-stage renal disease with episode of hypotension and left-sided weakness on presentation. 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 Yesterday at the end of dialysis and down to as well as this . Patient related that she could not get up or stand up which she can usually do and her left side including her left arm and leg is just weaker than her usual baseline. She was also noted to have left facial droop and so [facility] staff called EMS to bring her to the emergency room. She also has a little bit of nausea. Initial workup included MRI and CT scan of the head which were negative for any acute findings. Today when I saw her she feels like she is at her baseline strength with baseline weakness on the left side including upper and lower extremities. Her blood pressure is improved. She also gave a history of subclavian steal in 2008. She related that she was sent to specialist in [place] and at that time the risks of intervention was thought to be greater than the benefits so no intervention was done. Currently she is doing well and has no other complaints. Patient has been on dialysis only twice a week and tells me that she is actually making good amount of urine. She does not gain much in between dialysis treatments. Her labs including her BUN and creatinine actually took really good compared to earlier when she was started on dialysis. She feels better today and has no other complaints. Past Medical History Cardiac Medical History: Reports: Atrial Fibrillation - Paroxysmal, anticoagulation discontinued due to GI bleed episodes, Coronary Artery Disease, Hyperlipidemia, Hypertension-primary, Myocardial Infarction - LA X1, STENT PLACED 2000, Other - Subclavian steal syndrome Pulmonary Medical History: Reports: Chronic Obstructive Pulmonary Disease (COPD) - ON 3 L O2 NC CONTINUOUS, Sleep Apnea Neurological Medical History: Reports: Ischemic CVA, Other - Left-sided weakness; history of TIA, syncope and vertigo Endocrine Medical History: Reports: Hypothyroidism Renal/ Medical History: Reports: End Stage Renal Disease, Hyperphosphatemia, Metabolic Acidosis, Secondary Hyperparathyroidism, Other - FSGS via kidney biopsy Malignancy Medical History: Reports: Breast Cancer - Status post mastectomy GI Medical History: Reports: Other - GI bleed on March 2018 Musculoskeltal Medical History: Hematology Medical History: Reports Anemia of Chronic Kidney Disease Past Surgical History Past Surgical History: Reports: Appendectomy, Cardiac Catheterization, Cholecystectomy, Coronary Stent - August 2014, Dialysis Access Surgery AVF, Mastectomy, Tubal Ligation, Vascular Surgery - PermCath placement for dialysis with subsequent AVF for dialysis, Other - AV fistula formation for hemodialysis Social History Information Source: Patient Smoking Status: Former Smoker - Stopped in 2005 Last Time Smoked: 2004 Frequency of Alcohol Use: None Hx Recreational Drug Use: No Drugs: None Hx Prescription Drug Abuse: No - Advance Directive Resuscitation Status: Full Code Family History Family History: CVA - Mother, Hypertension - Sister Parental Family History Reviewed: Yes Children Family History Reviewed: Yes Sibling(s) Family History Reviewed.: Yes Medication/Allergy Home Medications: Albuterol Sulfate [Proair HFA Inhalation Aerosol 8.5 gm MDI] 2 puff IH Q3HP PRN 07/22/18 Aspirin [Adult Low Dose Aspirin EC] 81 mg PO QAM 07/22/18 Calcium Acetate [Phoslo 667 mg Capsule] 667 mg PO MEALS 07/22/18 Cholecalciferol (Vitamin D3) [Vitamin D3 1000 Unit Tablet] 1,000 unit PO QAM 07/22/18 Febuxostat [Uloric 40 mg Tablet] 40 mg PO QAM 07/22/18 Fluticasone/Salmeterol [Advair 250-50 Diskus 14 Dose/Diskus] 1 puff IH Q12 07/22/18 Furosemide [Lasix 20 mg Tablet] 20 mg PO SUMOWETHFR 07/22/18 Guaifenesin [Mucinex] 600 mg PO Q12 07/22/18 Levothyroxine Sodium 125 mcg PO Q6AM 07/22/18 Metoprolol Succinate [Toprol Xl 50 mg Tab.sr] 50 mg PO QPM 07/22/18 Midodrine HCl [Proamatine 5 mg Tablet] 5 mg PO TUSA 07/22/18 Nitroglycerin [Nitrostat 0.4 mg (1/150 Gr) Tabs 25/Bottle] 0.4 mg SL Q5MP PRN 07/22/18 Omeprazole 40 mg PO QAM 07/22/18 Rosuvastatin Calcium [Crestor 10 mg Tablet] 10 mg PO QPM 07/22/18 Tiotropium [place] [Spiriva Handihaler 5 Cap/Kit (18 Mcg/Cap)] 1 cap IH M 07/22/18 Allergies/Adverse Reactions: Sulfa (Sulfonamide Antibiotics) Allergy (Severe, Verified 04/13/18 10:02) unsure pregabalin [From Lyrica] Adverse Reaction (Severe, Verified 04/13/18 10:02) irritable,weight gain Review of Systems All systems: reviewed and no additional remarkable complaints except as stated Review of Systems: Constitutional: ABSENT: chills, fatigue, fever(s), headache(s), weight gain, weight loss Eyes: ABSENT: visual disturbances Ears: ABSENT: hearing changes Cardiovascular: ABSENT: chest pain, dyspnea on exertion, edema, orthropnea, palpitations Respiratory: ABSENT: cough, dyspnea, hemoptysis Gastrointestinal: ABSENT: abdominal pain, constipation, diarrhea, hematemesis, hematochezia, nausea, vomiting Genitourinary: ABSENT: dysuria, hematuria Musculoskeletal: ABSENT: joint swelling Integumentary: ABSENT: rash, wounds Neurological: ABSENT: abnormal gait, abnormal speech, confusion, dizziness, numbness, syncope; admits left-sided weakness Psychiatric: ABSENT: anxiety, depression Endocrine: ABSENT: cold intolerance, heat intolerance, polydipsia, polyuria Hematologic/Lymphatic: ABSENT: easy bleeding, easy bruising, lymphadenopathy Physical Exam Vital Signs: Temp Pulse Resp BP Pulse Ox 97.6 F 72 16 113/63 96 07/23/18 11:29 07/23/18 11:29 07/23/18 11:29 07/23/18 11:29 07/23/18 11:29 Intake & Output 07/22/18 07/23/18 07/24/18 06:59 06:59 06:59 Weight 54.4 kg Exam: General appearance: No acute distress, cooperative, well-developed, well- nourished Head exam: PRESENT: atraumatic, normocephalic Eye exam: PRESENT: Conjunctiva [place], EOMI, PERRLA. ABSENT: conjunctival injection, scleral icterus Mouth exam: PRESENT: moist, neck supple, tongue midline Neck exam: PRESENT: full ROM. ABSENT: carotid bruit, JVD, lymphadenopathy, thyromegaly Respiratory exam: PRESENT: clear to auscultation bilaterally. ABSENT: rales, rhonchi, stridor, wheezes Cardiovascular exam: PRESENT: RRR, +S1, +S2. ABSENT: systolic murmur Pulses: PRESENT: normal radial pulses, normal dorsalis pedis pulses GI/Abdominal exam: PRESENT: normal bowel sounds, soft. ABSENT: guarding, mass, tenderness Rectal exam: Deferred Extremities exam: PRESENT: full ROM. ABSENT: calf tenderness, pedal edema Musculoskeletal: PRESENT: full ROM. ABSENT: deformity Neurological exam: PRESENT: alert, Awake, Oriented to person, Oriented to place, Oriented to time, reflexes normal, CN II-XII grossly intact. Motor exam: 5/5 on right upper and lower extremities, 4/5 in left upper and lower extremities ABSENT: sensory deficit Psychiatric exam: PRESENT: appropriate affect, normal mood. ABSENT: homicidal ideation, suicidal ideation Skin exam: PRESENT: intact, dry, warm. ABSENT: rash Results Laboratory Results: 07/23/18 04:45 07/23/18 04:45 07/23/18 07/23/18 04:45 04:45 WBC 4.2 RBC 4.03 Hgb 12.3 Hct 35.5 L MCV 88 MCH 30.4 MCHC 34.6 RDW 16.2 H Plt Count 219 Seg Neutrophils % 54.5 Lymphocytes % 31.0 Monocytes % 10.8 Eosinophils % 2.4 Basophils % 1.3 Absolute Neutrophils 2.3 Absolute Lymphocytes 1.3 Absolute Monocytes 0.5 Absolute Eosinophils 0.1 Absolute Basophils 0.1 Sodium 140.5 Potassium 4.2 Chloride 108 H Carbon Dioxide 25 Anion Gap 8 BUN 21 H Creatinine 2.34 H Est GFR ( Amer) 24 L Est GFR (Non-Af Amer) 20 L Glucose 81 Calcium 9.3 07/22/18 07/22/18 10:50 10:50 Creatine Kinase 25 L CK-MB (CK-2) 0.30 Troponin I < 0.012 Impressions: Chest X-Ray 07/22/18 10:56 IMPRESSION: CHRONIC INTERSTITIAL CHANGES. NO ACUTE RADIOGRAPHIC FINDING IN THE CHEST. Head CT 07/22/18 10:56 IMPRESSION: No acute findings. Extensive small vessel ischemic change in the hemispheric white matter EVIDENCE OF ACUTE STROKE: NO. Head MRI 07/22/18 14:24 IMPRESSION: ATROPHY AND CHRONIC MICRO-VASCULAR ISCHEMIC CHANGES. OTHERWISE NORMAL MRI OF THE BRAIN WITHOUT INTRAVENOUS GADOLINIUM CONTRAST. EVIDENCE OF ACUTE STROKE: NO. Assessment & Plan - Diagnosis (1) Acute left-sided weakness Is this a current diagnosis for this admission?: Yes Plan: CT scan and MRI are negative for acute ischemic findings. Clinically the patient's symptoms have subsided and she is now on her baseline strength on the left side. This is most likely related to acute hypotension post dialysis. (2) End stage renal failure on dialysis Is this a current diagnosis for this admission?: Yes Plan: We will plan to do dialysis tomorrow since she is getting a CTA with contrast today. I will also try to quantify the patient's urine output and asked the patient and her nurse to quantify the urine output accurately. The patient's labs including BUN and creatinine are really good considering that she did not complete her dialysis treatment yesterday and she is only going for dialysis twice a week. I am going to try to reevaluate and see if patient can be taken off dialysis based on her urine output and her kidney function for the next week or so. I discussed this with Dr. Garza today. Although again I dialyze her tomorrow I may hold her dialysis subsequently as an outpatient. I will coordinate with Frankie to follow her up very closely in terms of labs and need for dialysis treatment. However she does not need to stay here in the hospital for that trial. (3) Hypotension Qualifiers: Hypotension type: unspecified hypotension type Qualified Code(s): I95.9 - Hypotension, unspecified Is this a current diagnosis for this admission?: Yes (4) Subclavian steal syndrome Is this a current diagnosis for this admission?: Yes Plan: CTA ordered by Dr. Siu today. - Notes Notes: Thank you very much for this consultation. - Time Time Spent: 50 to 70 Minutes
--- NOTE | 2018-07-23 18:39 | RADIOLOGY REPORT (SQ) ---
EXAM DESCRIPTION: CTA NECK COMPLETED DATE/TIME: 07/23/2018 6:20 pm REASON FOR STUDY: possible subclavian steal syndrome COMPARISON: None. TECHNIQUE: Axial dynamic scanning technique with dynamic contrast enhancement through the extra-aircraft launch and recovery technician nial carotid and vertebral arteries. Multiplanar reconstruction. 3-D MIPS and Volume-rendered imag es acquired at the workstation and saved to PACS. Images are reviewed in soft tissue, bone, lung w indows. All CT scanners at this facility use dose modulation, iterative reconstruction, and/or weight based d osing when appropriate to reduce radiation dose to as low as reasonably achievable (ALARA). [facility]: Dose Right [facility]: CareDose [facility]: Dose Right [facility]: Teradose 4D [facility]: [employer] CONTRAST TYPE AND DOSE: contrast/concentration: Isovue 300.00 mg/ml; Total Contrast Delivered: 70.0 ml; Total Saline Delivered: 75.0 ml RENAL FUNCTION: Dialysis patient LIMITATIONS: None. FINDINGS: AORTIC ARCH: Normal three-vessel origin. Bilateral subclavian arteries are patent. No d issection. RIGHT CAROTIDS: Patent arteries. There is plaque at the origin of the internal carotid. There does not appear to be significant stenosis. RIGHT VERTEBRAL: The vertebral artery is quite small. It is patent. LEFT CAROTIDS: Patent no arteries. No significant stenosis is appreciated. LEFT VERTEBRAL: Patent. No dissection. OTHER: The subclavian arteries are patent. OTHER: 3-D reconstructions confirm findings. IMPRESSION: There are some atherosclerotic changes in the proximal internal carotids. There does no t appear to be significant stenosis. The subclavian arteries are patent. COMMENT: Quality ID #[id number]: Measurements of distal internal carotid diameter were used as the denomina tor for stenosis measurement. TECHNICAL DOCUMENTATION: JOB ID: [id number] Quality ID # [id number]: Final reports with documentation of one or more dose reduction techniques (e.g., Au tomated exposure control, adjustment of the mA and/or kV according to patient size, use of iterative reconstruction technique) 2010 [employer] All Rights Reserved Reading location - IP/workstation name: [email or web address]
--- NOTE | 2018-07-23 18:45 | RADIOLOGY REPORT (SQ) ---
EXAM DESCRIPTION: CTA HEAD COMPLETED DATE/TIME: 07/23/2018 6:20 pm REASON FOR STUDY: possible subclavian steal syndrome COMPARISON: None. TECHNIQUE: Post IV contrast scanning, thin section axial imaging through the brain to evaluate the a rterial structures. Source and MIP images are saved and reviewed on PACS. Advanced 3D imaging as volume-rendering, MIPs, SSD performed? No All CT scanners at this facility use dose modulation, iterative reconstruction, and/or weight based d osing when appropriate to reduce radiation dose to as low as reasonably achievable (ALARA). [facility]: Dose Right [facility]: CareDose [facility]: Dose Right [facility]: Teradose 4D [facility]: [employer] CONTRAST TYPE AND DOSE: 70 mL Omnipaque 300- low osmolar. RENAL FUNCTION: Dialysis patient. LIMITATIONS: None. FINDINGS: [place]: The anterior, middle, posterior cerebral arteries are all patent. No ev idence of aneurysm or focal stenosis. POSTERIOR CIRCULATION: The distal vertebral arteries are patent as is the basilar artery. No aneurysm . BRAIN: No gross enhancing lesions. BONES: Intact as visualized. SINUSES: No fluid or mucosal thickening. OTHER: No other significant finding. IMPRESSION: NO CTA EVIDENCE OF STENOSIS OR ANEURYSM OF THE [place]. TECHNICAL DOCUMENTATION: JOB ID: [id number] Quality ID # [id number]: Final reports with documentation of one or more dose reduction techniques (e.g., Au tomated exposure control, adjustment of the mA and/or kV according to patient size, use of iterative reconstruction technique) 2010 [employer]- All Rights Reserved Reading location - IP/workstation name: [email or web address]
[2018-07-23] MEDS: ATORVASTATIN CALCIUM 20 MG TABLET PO SCH (22:08)
[2018-07-24] MEDS ORDERED: NORMAL SALINE 1000 ML 1,000 ML IV PRN (05:00)
[2018-07-24 05:02] LABS: HEMATOCRIT 36.2 % (36.0-47.0); HEMOGLOBIN 12.5 g/dL (12.0-15.5); MEAN CORPUSCULAR HEMOGLOBIN 30.2 pg (27.0-33.4); MEAN CORPUSCULAR HGB CONC 34.6 g/dL (32.0-36.0); MEAN CORPUSCULAR VOLUME 87 fl (80-97); PLATELET COUNT 219 10^3/uL (150-450); RED BLOOD COUNT 4.14 10^6/uL (3.72-5.28); RED CELL DISTRIBUTION WIDTH 16.2 % (11.5-14.0); WHITE BLOOD COUNT 4.4 10^3/uL (4.0-10.5)
[2018-07-24 05:15] LABS: ANION GAP 6 (5-19); BLOOD UREA NITROGEN 30 mg/dL (7-20); CALCIUM 9.7 mg/dL (8.4-10.2); CARBON DIOXIDE 23 mmol/L (22-30); CHLORIDE 109 mmol/L (98-107); GLUCOSE 89 mg/dL (75-110); POTASSIUM 4.3 mmol/L (3.6-5.0); SODIUM 137.6 mmol/L (137-145); TRIGLYCERIDES 44 mg/dL (<150)
[2018-07-24 05:16] LABS: CHOLESTEROL 99.93 mg/dL (0-200)
[2018-07-24] MEDS: LEVOTHYROXINE SODIUM 0.025 MG TABLET PO SCH (05:17)
[2018-07-24] MEDS: LANSOPRAZOLE 30 MG TAB.RAP.DR PO SCH (05:18)
[2018-07-24] MEDS: LEVOTHYROXINE SODIUM 0.1 MG TABLET PO SCH (05:18)
[2018-07-24 05:26] LABS: DIRECT LDL 38 mg/dL (<100)
[2018-07-24] MEDS: CHOLECALCIFEROL (D3) 1,000 UNIT TABLET PO SCH (08:00)
[2018-07-24] MEDS: FLUTICASONE/SALMETEROL DISKUS 250-50 MCG/DOSE IH SCH (13:20)
[2018-07-24] MEDS: ASPIRIN 81 MG TABLET, ENT COATED PO SCH (13:22)
[2018-07-24] MEDS: CALCIUM ACETATE 667 MG CAPSULE PO SCH ×2 (13:22→17:25)
[2018-07-24] MEDS: HEPARIN SOD (PORCINE) 5,000 UNIT/ML 1 ML SYRINGE SUBCUT SCH (13:23)
--- NOTE | 2018-07-24 17:22 | RADIOLOGY REPORT (SQ) ---
EXAM DESCRIPTION: CAROTID DOPPLER COMPLETED DATE/TIME: 07/24/2018 5:09 pm REASON FOR STUDY: possible subclavian steal, fistula on left arm COMPARISON: Carotid Doppler 01/23/2018, 06/16/2017 CT angio head and neck 07/23/2018 MRI brain 07/22/2018 TECHNIQUE: Grayscale ultrasound, Doppler velocity and spectra, and color Doppler images acquired of the extra-cranial carotid and vertebral arteries. Images stored on PACS. LIMITATIONS: None. FINDINGS: RIGHT CAROTID CCA Velocities: Within normal limits. Peak systolic velocity 1.1 m/sec ICA Velocities Peak systolic 1.4 m/s. End diastolic 0.23 m/s. Proximal ICA/CCA peak systolic ratio normal. Spectra normal. Mixed calcific and noncalcific plaque is present at the right carotid bifurcation wi thout flow significant stenosis. LEFT CAROTID CCA Velocities: Within normal limits. Peak systolic velocity 1.4 m/sec. Calcific plaque is present in the left common carotid artery without focal significant stenosis. ICA Velocities Peak systolic 1.2 m/s. End diastolic 0.11 m/s. Proximal ICA/CCA peak systolic ratio normal. Spectra normal. Dense shadowing calcific plaque at the carotid bifurcation. Just distal to the plaq ue, velocities suggest against any flow significant stenosis VERTEBRAL ARTERIES: On the right side, back and forth flow is identified in the right vertebral arter y, with diastolic flow reversal. Prior CT angio head and neck demonstrated the right vertebral is sm all, non dominant. No right-sided subclavian artery stenosis is identified at CTA. On the left side, the vertebral artery is dominant with antegrade flow throughout systole and diastol e. SUBCLAVIAN ARTERIES: On the right side, normal peak velocity and waveforms in the right subclavian an d axillary arteries. This correlates with CT angio neck and viejas of [place] 07/23/2018. On the left side, patient has an AV fistula for dialysis. There are elevated peak systolic and diffu se elevated diastolic velocities throughout the left subclavian artery and axillary artery from the A V fistula in the left arm. OTHER: These results were discussed with Dr. Sena IMPRESSION: No hemodynamically significant stenosis of the carotid bifurcations. No right or left subclavian artery or axillary artery stenosis by Doppler. Back and forth flow is identified in the right vertebral artery with diastolic flow reversal. 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 These findings were discussed with Dr Sena COMMENT: Quality ID #195: Velocity criteria are extrapolated from the diameter data as defined by t he Society of Radiologists in Ultrasound Consensus Conference. Radiology 2003: 229; 340-346. TECHNICAL DOCUMENTATION: JOB ID: [id number] [employer]- All Rights Reserved Reading location - IP/workstation name: [email or web address]
[2018-07-24] MEDS: METOPROLOL SUCCINATE 50 MG TAB.SR.24H PO SCH (17:24)
--- NOTE | 2018-07-24 18:04 | PDOC DISCHARGE SUMMARY ---
General - Admit/Disc Date/PCP Admission Date/Primary Care Provider: 07/22/18 14:00 GIANNA BOURGEOIS MD Discharge Date: 07/24/18 - Discharge Diagnosis (1) Acute left-sided weakness Is this a current diagnosis for this admission?: Yes (2) Subclavian steal syndrome Is this a current diagnosis for this admission?: Yes (3) Hypotension Is this a current diagnosis for this admission?: Yes - Additional Information Resuscitation Status: Full Code Home Medications: Albuterol Sulfate [Proair HFA Inhalation Aerosol 8.5 gm MDI] 2 puff IH Q3HP PRN 07/22/18 Aspirin [Adult Low Dose Aspirin EC] 81 mg PO QAM 07/22/18 Calcium Acetate [Phoslo 667 mg Capsule] 667 mg PO MEALS 07/22/18 Cholecalciferol (Vitamin D3) [Vitamin D3 1000 Unit Tablet] 1,000 unit PO QAM 07/22/18 Febuxostat [Uloric 40 mg Tablet] 40 mg PO QAM 07/22/18 Fluticasone/Salmeterol [Advair 250-50 Diskus 14 Dose/Diskus] 1 puff IH Q12 07/22/18 Furosemide [Lasix 20 mg Tablet] 20 mg PO SUMOWETHFR 07/22/18 Guaifenesin [Mucinex] 600 mg PO Q12 07/22/18 Levothyroxine Sodium 125 mcg PO Q6AM 07/22/18 Midodrine HCl [Proamatine 5 mg Tablet] 5 mg PO TUSA 07/22/18 Nitroglycerin [Nitrostat 0.4 mg (1/150 Gr) Tabs 25/Bottle] 0.4 mg SL Q5MP PRN 07/22/18 Omeprazole 40 mg PO QAM 07/22/18 Rosuvastatin Calcium [Crestor 10 mg Tablet] 10 mg PO QPM 07/22/18 Tiotropium Leopold [Spiriva Handihaler 5 Cap/Kit (18 Mcg/Cap)] 1 cap IH QAM 07/22/18 Metoprolol Succinate [Toprol Xl 50 mg Tab.sr] 25 mg PO QPM #0 07/24/18 History of Present Illness History of Present Illness: EZRA SUERO is a 78 year old female with a past medical history of ESRD from [facility] on hemodialysis MWF, hypothyroidism, hypertension, 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 Patient says that she she was apparently fine and was at her baseline. She was almost done with dialysis and only had 20 minutes left prior to completion she was noted and her blood pressure was noted to be severely low 57/35. She did have associated. She was also reported to have a left facial drooping and worsening of her left sided weakness. Dialysis was terminated. Her blood pressure promptly improved to. Her facial droop and acute left-sided weakness had largely resolved. She was evaluated in the ER and CT of the head was unremarkable. Upon encounter, patient says that her acute left-sided weakness persisted. There is no apparent left facial drooping. She denies numbness on either extremities. Denies dizziness at the moment. No headaches, chest pain or shortness of breath. 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 She was admitted for possible TIA. Her left sided weakness resolved eventually (in <12 hrs) and she was back to her baseline left sided residual weakness from a previous CVA (4/5). She does have a previous history of possible subclavian steal syndrome on a carotid doppler in 2017. She had prior episodes of dizziness (most of which occured during dialysis) and hypotension. Repeat carotid doppler showed reversal of blood flow on the right vertebral artery. CTA of the head and neck revealed a small right vertebral artery. Subclavian vessels were unremarkable. 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 Patient likely develops transient hypotension during fluid shifting during dialysis and cerebra l ischemia is aggravated by vertebral insufficiency. This was discussed with her in length. She does recall that she had seen a specialist at [facility] before and was told the same thing but was told that correcting this would be very high risk and that she will not be suitable for such procedure. She verbalized she also does not prefer any surgical correction of above issues. She did get dialyzed her after her CTA studies. Discussed with nephrology as well who says they are considering taking her off dialysis but this will continuously considered and reassessed on outpatient ff-up. Patient educated on gradual positional changes to prevent orthostasis and reduce presyncopal/dizzy spells. Physical Exam Vital Signs: Temp Pulse Resp BP Pulse Ox 98.0 F 79 12 82/53 L 100 07/24/18 16:00 07/24/18 16:00 07/24/18 16:00 07/24/18 16:00 07/24/18 16:00 Intake & Output 07/23/18 07/24/18 07/25/18 06:59 06:59 06:59 Output Total 1200 200 Balance -1200 -200 Weight 119 lb 14.903 oz 123 lb 7.342 oz General appearance: PRESENT: no acute distress, well-developed, well-nourished Eye exam: PRESENT: conjunctiva pink, EOMI, PERRLA. ABSENT: scleral icterus Ear exam: PRESENT: normal external ear exam Mouth exam: PRESENT: moist, tongue midline Neck exam: ABSENT: carotid bruit, JVD, lymphadenopathy, thyromegaly Respiratory exam: PRESENT: clear to auscultation ashanti. ABSENT: rales, rhonchi, wheezes Cardiovascular exam: PRESENT: RRR. ABSENT: diastolic murmur, rubs, systolic murmur Pulses: PRESENT: normal dorsalis pedis pul GI/Abdominal exam: PRESENT: normal bowel sounds, soft. ABSENT: distended, guarding, mass, organolmegaly, rebound, tenderness Rectal exam: PRESENT: deferred Neurological exam: PRESENT: alert, awake, oriented to person, oriented to place, oriented to time, oriented to situation, CN II-XII grossly intact. ABSENT: motor sensory deficit Results Laboratory Results: 07/24/18 04:38 07/24/18 04:38 07/24/18 07/24/18 04:38 04:38 WBC 4.4 RBC 4.14 Hgb 12.5 Hct 36.2 MCV 87 MCH 30.2 MCHC 34.6 RDW 16.2 H Plt Count 219 Sodium 137.6 Potassium 4.3 Chloride 109 H Carbon Dioxide 23 Anion Gap 6 BUN 30 H Creatinine 2.90 H Est GFR ( Amer) 19 L Est GFR (Non-Af Amer) 16 L Glucose 89 Calcium 9.7 Triglycerides 44 Cholesterol 99.93 LDL Cholesterol Direct 38 VLDL Cholesterol 9.0 L HDL Cholesterol 62 07/22/18 07/22/18 10:50 10:50 Creatine Kinase 25 L CK-MB (CK-2) 0.30 Troponin I < 0.012 Impressions: Chest X-Ray 07/22/18 10:56 IMPRESSION: CHRONIC INTERSTITIAL CHANGES. NO ACUTE RADIOGRAPHIC FINDING IN THE CHEST. Head CT 07/22/18 10:56 IMPRESSION: No acute findings. Extensive small vessel ischemic change in the hemispheric white matter EVIDENCE OF ACUTE STROKE: NO. Head MRI 07/22/18 14:24 IMPRESSION: ATROPHY AND CHRONIC MICRO-VASCULAR ISCHEMIC CHANGES. OTHERWISE NORMAL MRI OF THE BRAIN WITHOUT INTRAVENOUS GADOLINIUM CONTRAST. EVIDENCE OF ACUTE STROKE: NO. Head CTA 07/23/18 10:11 IMPRESSION: NO CTA EVIDENCE OF STENOSIS OR ANEURYSM OF THE [place] OF [place]. Neck CTA 07/23/18 10:11 IMPRESSION: There are some atherosclerotic changes in the proximal internal carotids. There does not appear to be significant stenosis. The subclavian arteries are patent. Carotid Doppler Study 07/24/18 12:11 IMPRESSION: No hemodynamically significant stenosis of the carotid bifurcations. No right or left subclavian artery or axillary artery stenosis by Doppler. Back and forth flow is identified in the right vertebral artery with diastolic flow reversal. With flow changes in the left upper extremity during dialysis, patient may be having vertebrobasilar insufficiency accounting for her symptoms. These findings were discussed with Dr Sena Qualifiers - * PATIENT BEING DISCHARGED WITH ANY OF THE FOLLOWING DIAGNOSIS: No
[2018-07-24 18:13] VITALS: BP 82/53
--- NOTE | 2018-07-24 20:48 | PDOC PROGRESS REPORT ---
Subjective Progress Note for:: 07/24/18 Subjective:: I saw the patient on dialysis at around 7:30 AM this morning. He was doing very well and she reports that her left sided weakness is currently now at baseline. He does not have any complaints. She was tolerating dialysis when I saw her without any problems. She did undergo CTA of her neck and head to see about the history of subclavian steal syndrome. The subclavian vessels are patent. Carotid Doppler was also ordered. Reason For Visit: ACUTE ON CHRONIC TRAINING FACILITATOR,ACUTE CVA VS TIA,HYPOTENSION Physical Exam Vital Signs: Temp Pulse Resp BP Pulse Ox 98.0 F 75 16 82/53 L 98 07/24/18 18:09 07/24/18 18:09 07/24/18 18:09 07/24/18 18:09 07/24/18 18:09 Intake & Output 07/23/18 07/24/18 07/25/18 06:59 06:59 06:59 Intake Total 474 Output Total 1200 500 Balance -1200 -26 Weight 54.4 kg 56 kg Vitals during dialysis: Blood pressure 153/81, heart rate of 65, blood flow rate of 450 mL/min and dialysate flow rate of 800 mL/min. Exam: General appearance: PRESENT: no acute distress, cooperative, well-developed, well-nourished Head exam: PRESENT: atraumatic, normocephalic Eye exam: PRESENT: conjunctiva pink, PERRLA. ABSENT: scleral icterus Neck exam: ABSENT: JVD Respiratory exam: PRESENT: Normal breath sounds. ABSENT: crackles, rales, rhonchi, unlabored, wheezes Cardiovascular exam: PRESENT: Regular rate rhythm -+S1, +S2. ABSENT: diastolic murmur, systolic murmur GI/Abdominal exam: PRESENT: normal bowel sounds, soft. ABSENT: guarding, mass, tenderness Extremities exam: ABSENT: No edema Neurological exam: PRESENT: alert, awake, oriented to person, place and time. Motor exam: Left upper and lower extremities 4/5 unchanged, right upper and lower extremities 5/5 Skin exam: PRESENT: dry, warm, Results Laboratory Results: 07/24/18 04:38 07/24/18 04:38 07/24/18 07/24/18 04:38 04:38 WBC 4.4 RBC 4.14 Hgb 12.5 Hct 36.2 MCV 87 MCH 30.2 MCHC 34.6 RDW 16.2 H Plt Count 219 Sodium 137.6 Potassium 4.3 Chloride 109 H Carbon Dioxide 23 Anion Gap 6 BUN 30 H Creatinine 2.90 H Est GFR ( Amer) 19 L Est GFR (Non-Af Amer) 16 L Glucose 89 Calcium 9.7 Triglycerides 44 Cholesterol 99.93 LDL Cholesterol Direct 38 VLDL Cholesterol 9.0 L HDL Cholesterol 62 07/22/18 07/22/18 10:50 10:50 Creatine Kinase 25 L CK-MB (CK-2) 0.30 Troponin I < 0.012 Impressions: Chest X-Ray 07/22/18 10:56 IMPRESSION: CHRONIC INTERSTITIAL CHANGES. NO ACUTE RADIOGRAPHIC FINDING IN THE CHEST. Head CT 07/22/18 10:56 IMPRESSION: No acute findings. Extensive small vessel ischemic change in the hemispheric white matter EVIDENCE OF ACUTE STROKE: NO. Head MRI 07/22/18 14:24 IMPRESSION: ATROPHY AND CHRONIC MICRO-VASCULAR ISCHEMIC CHANGES. OTHERWISE NORMAL MRI OF THE BRAIN WITHOUT INTRAVENOUS GADOLINIUM CONTRAST. EVIDENCE OF ACUTE STROKE: NO. Head CTA 07/23/18 10:11 IMPRESSION: NO CTA EVIDENCE OF STENOSIS OR ANEURYSM OF THE [place] OF [place]. Neck CTA 07/23/18 10:11 IMPRESSION: There are some atherosclerotic changes in the proximal internal carotids. There does not appear to be significant stenosis. The subclavian arteries are patent. Carotid Doppler Study 07/24/18 12:11 IMPRESSION: No hemodynamically significant stenosis of the carotid bifurcations. No right or left subclavian artery or axillary artery stenosis by Doppler. Back and forth flow is identified in the right vertebral artery with diastolic flow reversal. With flow changes in the left upper extremity during dialysis, patient may be having vertebrobasilar insufficiency accounting for her symptoms. These findings were discussed with Dr Sena Assessment & Plan - Diagnosis (1) Acute left-sided weakness Is this a current diagnosis for this admission?: Yes Plan: Currently left-sided weakness has gone back to baseline. (2) End stage renal failure on dialysis Is this a current diagnosis for this admission?: Yes Plan: We did dialysis today for 3 hours, using the patient's AV fistula, with 2 potassium bath, blood flow rate of 450 mL per minute, dialysate flow rate of 800 mL per minute, no ultrafiltration, no heparin and no Procrit. If discharged today patient does not need to be dialyzed tomorrow at [facility]. I will also try and see if we can get her off dialysis. For the last 24 hours she has made 1200 mL of urine. We will do do a BMP on Friday morning and try to see if he can hold dialysis and continue to monitor her closely and decide accordingly. I informed [facility] nurses about this plan. (3) Hypotension Qualifiers: Hypotension type: unspecified hypotension type Qualified Code(s): I95.9 - Hypotension, unspecified Is this a current diagnosis for this admission?: Yes (4) Subclavian steal syndrome Is this a current diagnosis for this admission?: Yes Plan: CT of the head and neck showed patent subclavian arteries. Later on carotid Doppler was done and showed vertebrobasilar insufficiency. - Notes Notes: From nephrology standpoint I think patient can be discharged home today. We will monitor very closely for the next 1-2 weeks and see if she can be taken off dialysis. - Time Time with patient: 15-25 minutes
== END 2018-07-24 19:28 | disposition home or self-care (01) | DRG 69 ==
LOC: ER 10:54 → EH 14:00 → 3W 17:10
PROVIDERS: ADMIT Internal Medicine; ATTEND Internal Medicine
PROC: 5A1D90Z Performance of Urinary Filtration, Continuous, Greater than 18 hours Per Day (ICD-10-PCS; principal; 2018-07-24)
DX: G45.8 Other transient cerebral ischemic attacks and related syndromes (principal); N18.6 End stage renal disease; N04.1 Nephrotic syndrome with focal and segmental glomerular lesions; I12.0 Hypertensive chronic kidney disease with stage 5 chronic kidney disease or end stage renal disease; I69.954 Hemiplegia and hemiparesis following unspecified cerebrovascular disease affecting left non-dominant side; E03.9 Hypothyroidism, unspecified; I25.10 Atherosclerotic heart disease of native coronary artery without angina pectoris; J44.9 Chronic obstructive pulmonary disease, unspecified; G47.33 Obstructive sleep apnea (adult) (pediatric); E78.00 Pure hypercholesterolemia, unspecified; I95.3 Hypotension of hemodialysis; E83.39 Other disorders of phosphorus metabolism; E21.3 Hyperparathyroidism, unspecified; D63.1 Anemia in chronic kidney disease; I25.2 Old myocardial infarction; Z79.899 Other long term (current) drug therapy; Z95.5 Presence of coronary angioplasty implant and graft; Z85.3 Personal history of malignant neoplasm of breast; Z86.79 Personal history of other diseases of the circulatory system; Z90.10 Acquired absence of unspecified breast and nipple; Z99.81 Dependence on supplemental oxygen; Z90.49 Acquired absence of other specified parts of digestive tract; Z87.891 Personal history of nicotine dependence; Z82.3 Family history of stroke; Z82.49 Family history of ischemic heart disease and other diseases of the circulatory system; Z88.6 Allergy status to analgesic agent; Z88.2 Allergy status to sulfonamides
CPT/HCPCS: 36415; 70450; 70496; 70498; 70551; 71045; 80048; 80053; 80061; 81001; 82550; 82553; 82962; 83735; 84484; 85025; 85027; 85610; 85730; 87040; 93005; 93010; 93880; 99291; J1644; J3490

== ENCOUNTER → 2018-07-27 | Outpatient (CLI) | payer MEDICARE, OTHER ==
[2018-07-27 09:14] LABS: ANION GAP 10 (5-19); BLOOD UREA NITROGEN 42 mg/dL (7-20); CALCIUM 9.2 mg/dL (8.4-10.2); CARBON DIOXIDE 26 mmol/L (22-30); CHLORIDE 103 mmol/L (98-107); GLUCOSE 93 mg/dL (75-110); POTASSIUM 3.7 mmol/L (3.6-5.0); SODIUM 139.4 mmol/L (137-145)
== END ==
LOC: OD 08:18
PROVIDERS: ATTEND Internal Medicine Nephrology
DX: N18.6 End stage renal disease (principal)
CPT/HCPCS: 36415; 80048

== ENCOUNTER → 2018-07-29 | Outpatient (CLI) | payer MEDICARE, OTHER ==
[2018-07-29 11:15] LABS: ALANINE AMINOTRANSFERASE 30 U/L (9-52); ALBUMIN 3.8 g/dL (3.5-5.0); ALKALINE PHOSPHATASE 71 U/L (38-126); ANION GAP 8 (5-19); ASPARTATE AMINO TRANSFERASE 25 U/L (14-36); BILIRUBIN,DIRECT 0.3 mg/dL (0.0-0.4); BILIRUBIN,TOTAL 0.6 mg/dL (0.2-1.3); BLOOD UREA NITROGEN 44 mg/dL (7-20); CALCIUM 9.3 mg/dL (8.4-10.2); CARBON DIOXIDE 27 mmol/L (22-30); CHLORIDE 104 mmol/L (98-107); CHOLESTEROL 119.59 mg/dL (0-200); GLUCOSE 85 mg/dL (75-110); POTASSIUM 4.1 mmol/L (3.6-5.0); SODIUM 138.7 mmol/L (137-145); TOTAL PROTEIN 6.1 g/dL (6.3-8.2); TRIGLYCERIDES 52 mg/dL (<150); URIC ACID 2.7 mg/dL (2.5-7.5)
[2018-07-29 11:26] LABS: DIRECT LDL 40 mg/dL (<100)
[2018-07-29 11:32] LABS: FREE T3 2.57 pg/mL (2.77-5.27); FREE T4 (FREE THYROXINE) 2.57 ng/dL (0.78-2.19)
[2018-07-29 11:45] LABS: THYROID STIMULATING HORMONE 0.07 uIU/mL (0.47-4.68)
== END ==
LOC: OD 09:49
PROVIDERS: ATTEND Family Medicine
DX: M10.372 Gout due to renal impairment, left ankle and foot (principal); E03.9 Hypothyroidism, unspecified; E78.5 Hyperlipidemia, unspecified; Z79.899 Other long term (current) drug therapy
CPT/HCPCS: 36415; 80048; 80061; 80076; 84439; 84443; 84481; 84550

== ENCOUNTER → 2018-09-10 | Outpatient (CLI) | payer MEDICARE, OTHER ==
[2018-09-10 12:27] LABS: FREE T3 3.2 pg/mL (2.77-5.27); FREE T4 (FREE THYROXINE) 1.91 ng/dL (0.78-2.19)
== END ==
LOC: OD 11:08
PROVIDERS: ATTEND Family Medicine
DX: E03.9 Hypothyroidism, unspecified (principal)
CPT/HCPCS: 36415; 84439; 84481

== ENCOUNTER → 2019-01-30 | Outpatient (CLI) | payer MEDICARE, OTHER ==
[2019-01-30 09:48] LABS: ALANINE AMINOTRANSFERASE 27 U/L (9-52); ALBUMIN 3.7 g/dL (3.5-5.0); ALKALINE PHOSPHATASE 73 U/L (38-126); ANION GAP 9 (5-19); ASPARTATE AMINO TRANSFERASE 22 U/L (14-36); BILIRUBIN,DIRECT 0.3 mg/dL (0.0-0.4); BILIRUBIN,TOTAL 0.7 mg/dL (0.2-1.3); BLOOD UREA NITROGEN 33 mg/dL (7-20); CALCIUM 9.4 mg/dL (8.4-10.2); CARBON DIOXIDE 29 mmol/L (22-30); CHLORIDE 99 mmol/L (98-107); CHOLESTEROL 106.85 mg/dL (0-200); GLUCOSE 88 mg/dL (75-110); POTASSIUM 4.2 mmol/L (3.6-5.0); TOTAL PROTEIN 6.1 g/dL (6.3-8.2); TRIGLYCERIDES 55 mg/dL (<150)
[2019-01-30 09:59] LABS: DIRECT LDL 40 mg/dL (<100)
[2019-01-30 10:03] LABS: FREE T3 3.29 pg/mL (2.77-5.27); FREE T4 (FREE THYROXINE) 1.61 ng/dL (0.78-2.19)
== END ==
LOC: OD 08:30
PROVIDERS: ATTEND Internal Medicine Cardiovascular Disease
DX: E03.9 Hypothyroidism, unspecified (principal); E78.00 Pure hypercholesterolemia, unspecified; I10 Essential (primary) hypertension; Z79.899 Other long term (current) drug therapy
CPT/HCPCS: 36415; 80048; 80061; 80076; 84439; 84481

== ENCOUNTER → 2019-02-10 | Outpatient (CLI) | payer MEDICARE, OTHER | LOC: OD 15:12 | PROVIDERS: ATTEND Family Medicine | DX: M10.372 Gout due to renal impairment, left ankle and foot (principal) | CPT/HCPCS: 36415; 84550 ==

== ENCOUNTER 2019-02-12 13:49 | Emergency (ER) | payer MEDICARE, OTHER ==
--- NOTE | 2019-02-12 15:04 | ER Document Report ---
ED General - General Stated Complaint: ALTERED MENTAL STATUS Time Seen by Provider: 02/12/19 14:27 Primary Care Provider: GIANNA BOURGEOIS MD [Primary Care Provider] - Follow up as needed TRAVEL OUTSIDE OF THE [place] IN LAST 30 DAYS: No - HPI Notes: Patient is a 78-year-old female that presents to the emergency department for chief complaint of near syncope. Patient was on dialysis and had 15 minutes left of her treatment when she started to feel lightheaded and reportedly became hypotensive. Patient denies full loss of consciousness but does not completely recall the events of what happened. EMS reported that she slumped over. There is no seizure activity noticed. Patient did not have any associated chest pain, palpitations or vomiting. She does state that she has had multiple episodes similarly at dialysis last year. Patient states she has a cardiac rn and a transmitter at home and was being worked up for dysrhythmia as a cause of her altered mentation during dialysis. Patient sees cardiology at [facility]. She also sees Dr. Sinclair locally. Currently she only feels tired. She denies any recent illness, fever, vomiting or diarrhea. Past Medical History: Hypertension, hyperlipidemia, CVA, hypothyroidism, CHF, COPD, end-stage renal disease on dialysis Past Surgical History: Left upper extremity AV fistula Social History: Lives at home. Denies tobacco use Family History: Reviewed and noncontributory for presenting illness Allergies: Reviewed, see documented allergy list. REVIEW OF SYSTEMS: CONSTITUTIONAL : No fever No chills No diaphoresis No recent illness EENT: No vision changes No congestion No sore throat CARDIOVASCULAR: Lightheadedness No chest pain No palpitations RESPIRATORY: No shortness of breath No cough No difficulty breathing GASTROINTESTINAL: No abdominal pain No nausea No vomiting No diarrhea GENITOURINARY: No dysuria No hematuria No difficulty urinating MUSCULOSKELETAL: No back pain No leg pain No arm pain SKIN: No rashes No lesions LYMPHATIC: No swollen, enlarged glands. NEUROLOGICAL: No lightheadedness No headache No weakness No paresthesias PSYCHIATRIC: No anxiety No depression PHYSICAL EXAMINATION: Vital signs reviewed, nursing noted reviewed. GENERAL: Well-appearing, well-nourished and in no acute distress. HEAD: Atraumatic, normocephalic. EYES: Eyes appear normal, extraocular movements intact, sclera anicteric, conjunctiva are normal. ENT: nares patent, oropharynx clear without exudates. Moist mucous membranes. NECK: Normal range of motion, supple without lymphadenopathy LUNGS: Breath sounds clear to auscultation bilaterally and equal. No wheezes rales or rhonchi. HEART: Regular rate and rhythm without murmurs ABDOMEN: Soft, nontender, normoactive bowel sounds. No rebound, guarding, or rigidity. No masses appreciated. EXTREMITIES: Left upper extremity AV fistula with good bruit and thrill, no bleeding. Nontender, good range of motion. 1+ bilateral pretibial edema, symmetric. NEUROLOGICAL: No focal neurological deficits. Moves all extremities spontaneously Motor and sensory grossly intact on exam. PSYCH: Normal mood, normal affect. SKIN: Warm, Dry, normal turgor, no rashes or lesions noted on exposed skin - Related Data Allergies/Adverse Reactions: Sulfa (Sulfonamide Antibiotics) Allergy (Severe, Verified 04/13/18 10:02) unsure pregabalin [From Lyrica] Adverse Reaction (Severe, Verified 04/13/18 10:02) irritable,weight gain Past Medical History - Social History Smoking Status: Never Smoker Family History: Reviewed & Not Pertinent, CAD, Other - Past Medical History Cardiac Medical History: Reports: Hx Atrial Fibrillation - Paroxysmal, anticoagulation discontinued due to GI bleed episodes, Hx Coronary Artery Disease, Hx Heart Attack - [place] X1, STENT PLACED 2000, Hx Hypercholesterolemia, Hx Hypertension - Pt has hypotension at this time Denies: Hx Congestive Heart Failure Pulmonary Medical History: Reports: Hx COPD - ON 3 L O2 NC CONTINUOUS, Hx Sleep Apnea Neurological Medical History: Reports: Hx Cerebrovascular Accident - CVA X3 LEFT WEAKER THAN RIGHT. Denies: Hx Seizures Endocrine Medical History: Reports: Hx Hypothyroidism. Denies: Hx Diabetes Mellitus Type 2 Renal/ Medical History: Reports: Hx End Stage Renal Disease, Hx Hemodialysis - Dialyzes every Friday and Friday., Hx Renal Insufficiency - Chronic kidney disease stage III. Denies: Hx Peritoneal Dialysis Malignancy Medical History: Reports: Hx Breast Cancer - Status post mastectomy GI Medical History: Reports: Hx ColonoscopyComment Only: Hx Ulcer - DIVERTICULITIS Musculoskeletal Medical History: Psychiatric Medical History: Denies: Hx Depression Infectious Medical History: Past Surgical History: Reports: Hx Appendectomy, Hx Cardiac Catheterization, Hx Cardiac Surgery - STENT, Hx Cholecystectomy, Hx Coronary Stent - August 2014, Hx Mastectomy, Hx Tubal Ligation, Hx Vascular Surgery - PermCath placement for dialysis with subsequent AVF for dialysis, Other - AV fistula formation for hemodialysis - Immunizations Hx Diphtheria, Pertussis, Tetanus Vaccination: Yes Hx Pneumococcal Vaccination: 07/07/12 Physical Exam - Vital signs Vitals: Pulse Ox 95 02/12/19 14:27 Course - Re-evaluation Re-evalutation: 02/12/19 16:39 Vitals reviewed. Nursing notes reviewed. Patient is well-appearing and hemodynamically stable at presentation. She had a near syncopal event today while on dialysis and did become hypotensive. Her work-up today is unremar kable. Her troponin is in the indeterminate range which is actually better than her comparison troponins. Her elevated troponin is likely secondary to her renal failure and she has not had any chest pain to suggest patient having acute ACS. Her EKG shows no ischemia or dysrhythmia. She has not had any dysrhythmia on telemetry monitoring. Patients care was discussed with her city surveyor Dr. Sinclair who reports she has a long history of hypotension with dialysis to the point where she was going once a week and receiving Midrin prior to dialysis. At this point I see no acute cardiac event today that would necessitate admission to the hospital. Patient will upload her implanted cardiac rn to [facility] when she gets home this evening and contact them Friday morning for follow-up. She will follow with Dr. Sinclair in the office for reevaluation as well. Patient will return for new or concerning symptoms including near syncopal events that happened when she is not on dialysis. She does have a borderline urinary tract infection which may be exacerbating her symptoms, she will be started on a brief course of Keflex. She is stable for discharge and outpatient follow-up. Laboratory 02/12/19 02/12/19 02/12/19 15:10 15:10 15:10 WBC 6.9 RBC 3.99 Hgb 12.8 Hct 37.0 MCV 93 MCH 32.0 MCHC 34.5 RDW 13.8 Plt Count 244 Seg Neutrophils % 76.9 Lymphocytes % 13.7 Monocytes % 7.6 Eosinophils % 0.9 Basophils % 0.9 Absolute Neutrophils 5.3 Absolute Lymphocytes 0.9 Absolute Monocytes 0.5 Absolute Eosinophils 0.1 Absolute Basophils 0.1 Sodium 139.3 Potassium 4.1 Chloride 101 Carbon Dioxide 28 Anion Gap 10 BUN 30 H Creatinine 2.09 H Est GFR ( Amer) 28 L Est GFR (Non-Af Amer) 23 L Glucose 92 Calcium 9.2 Total Bilirubin 0.6 Direct Bilirubin 0.3 Neonat Total Bilirubin Not Reportable Neonat Direct Bilirubin Not Reportable Neonat Indirect Bili Not Reportable AST 24 ALT 14 Alkaline Phosphatase 82 Troponin I < 0.012 Total Protein 6.8 Albumin 4.1 TSH Urine Color Urine Appearance Urine pH Ur Specific [place] Urine Protein Urine Glucose (UA) Urine Ketones Urine Blood Urine Nitrite Urine Bilirubin Urine Urobilinogen Ur Leukocyte Esterase Urine WBC (Auto) Urine RBC (Auto) Urine Bacteria (Auto) Squamous Epi Cells Auto Urine Ascorbic Acid 02/12/19 02/12/19 15:10 15:10 WBC RBC Hgb Hct MCV MCH MCHC RDW Plt Count Seg Neutrophils % Lymphocytes % Monocytes % Eosinophils % Basophils % Absolute Neutrophils Absolute Lymphocytes Absolute Monocytes Absolute Eosinophils Absolute Basophils Sodium Potassium Chloride Carbon Dioxide Anion Gap BUN Creatinine Est GFR ( Amer) Est GFR (Non-Af Amer) Glucose Calcium Total Bilirubin Direct Bilirubin Neonat Total Bilirubin Neonat Direct Bilirubin Neonat Indirect Bili AST ALT Alkaline Phosphatase Troponin I Total Protein Albumin TSH 0.55 Urine Color YELLOW Urine Appearance CLEAR Urine pH 9.0 Ur Specific [place] 1.005 Urine Protein 100 H Urine Glucose (UA) NEGATIVE Urine Ketones NEGATIVE Urine Blood NEGATIVE Urine Nitrite NEGATIVE Urine Bilirubin NEGATIVE Urine Urobilinogen NEGATIVE Ur Leukocyte Esterase SMALL H Urine WBC (Auto) 32 Urine RBC (Auto) 1 Urine Bacteria (Auto) 1+ Squamous Epi Cells Auto <1 Urine Ascorbic Acid NEGATIVE Chest X-Ray 02/12/19 14:27 IMPRESSION: Chronic interstitial changes without evidence of acute cardiopulmonary process. - Vital Signs Vital signs: Temp Pulse Resp BP Pulse Ox 97.7 F 19 141/71 H 99 02/12/19 15:16 02/12/19 15:00 02/12/19 14:43 02/12/19 15:00 - Laboratory Result Diagrams: 02/12/19 15:10 02/12/19 15:10 Laboratory results interpreted by me: 02/12/19 02/12/19 15:10 15:10 BUN 30 H Creatinine 2.09 H Est GFR ( Amer) 28 L Est GFR (Non-Af Amer) 23 L Urine Protein 100 H Ur Leukocyte Esterase SMALL H - EKG Interpretation by Me Additional EKG results interpreted by me: 02/12/19 15:04 Interpreted by myself 1448: Normal sinus rhythm, rate 70, normal axis, no ectopy, borderline QT prolongation, QT 464 Discharge - Discharge Clinical Impression: Intra-dialytic hypotension, Near syncope UTI (urinary tract infection) Qualifiers: Urinary tract infection type: site unspecified Hematuria presence: without hematuria Qualified Code(s): N39.0 - Urinary tract infection, site not specified Condition: Stable Disposition: HOME, SELF-CARE Instructions: Near Syncopal Episode ([facility]), Urinary Tract Infection ([facility]) Additional Instructions: Please return to the emergency department if you have any worsening, or concern of your symptoms. Please return to the emergency department if you develop chest pain, difficulty breathing, severe abdominal pain, or ongoing vomiting. Please follow-up with your primary care physician in 2-3 days and any other recommended physicians. If prescribed, take all medications as directed. If you have any questions or concerns do not hesitate to return the emergency department for evaluation. When you get home upload your cardiac rn to [facility] and on Friday morning contact the monitoring center to discuss your symptoms today Prescriptions: Cephalexin Monohydrate [Keflex 500 mg Capsule] 500 mg PO BID 5 Days capsule Referrals: LOUIE SINCLAIR MD [EMERITUS] - Follow up in 3-5 days GIANNA BOURGEOIS MD [Primary Care Provider] - Follow up in 3-5 days
--- NOTE | 2019-02-12 15:16 | RADIOLOGY REPORT (SQ) ---
EXAM DESCRIPTION: CHEST SINGLE VIEW COMPLETED DATE/TIME: 02/12/2019 2:56 pm REASON FOR STUDY: weakness COMPARISON: 07/22/2018 EXAM PARAMETERS: NUMBER OF VIEWS: One view. TECHNIQUE: Single frontal radiographic view of the chest acquired. RADIATION DOSE: NA LIMITATIONS: None. FINDINGS: LUNGS AND PLEURA: Chronic interstitial changes without focal opacities, masses or pneumoth orax. No pleural effusion. MEDIASTINUM AND HILAR STRUCTURES: No masses. Contour normal. HEART AND VASCULAR STRUCTURES: Heart normal in size. Aortic atherosclerosis . BONES: No acute findings. HARDWARE: Loop recorder overlies left chest. OTHER: No other significant finding. IMPRESSION: Chronic interstitial changes without evidence of acute cardiopulmonary process. TECHNICAL DOCUMENTATION: JOB ID: [id number] [employer]- All Rights Reserved Reading location - IP/workstation name: [email or web address]
[2019-02-12 15:29] LABS: ABSOLUTE BASOPHILS # (AUTO) 0.1 10^3/uL (0.0-0.2); ABSOLUTE EOSINOPHILS # (AUTO) 0.1 10^3/uL (0.0-0.6); ABSOLUTE LYMPHOCYTES (AUTO) 0.9 10^3/uL (0.5-4.7); ABSOLUTE MONOCYTES (AUTO) 0.5 10^3/uL (0.1-1.4); ABSOLUTE NEUT (AUTO) 5.3 10^3/uL (1.7-8.2); BASOPHILS % (AUTO) 0.9 % (0-2); EOSINOPHILS % (AUTO) 0.9 % (0-6); HEMOGLOBIN 12.8 g/dL (12.0-15.5); LYMPHOCYTES % (AUTO) 13.7 % (13-45); MEAN CORPUSCULAR HGB CONC 34.5 g/dL (32.0-36.0); MEAN CORPUSCULAR VOLUME 93 fl (80-97); MONOCYTES % (AUTO) 7.6 % (3-13); PLATELET COUNT 244 10^3/uL (150-450); RED BLOOD COUNT 3.99 10^6/uL (3.72-5.28); RED CELL DISTRIBUTION WIDTH 13.8 % (11.5-14.0); SEGMENTED NEUTROPHILS % (AUTO) 76.9 % (42-78); TOTAL CELLS COUNTED % (AUTO) 100 %; WHITE BLOOD COUNT 6.9 10^3/uL (4.0-10.5)
[2019-02-12 15:38] LABS: APPEARANCE,URINE CLEAR; BILIRUBIN,URINE NEGATIVE (NEGATIVE); COLOR,URINE YELLOW; GLUCOSE, URINE NEGATIVE (NEGATIVE); KETONES,URINE NEGATIVE (NEGATIVE); LEUKOCYTE ESTERASE,URINE SMALL (NEGATIVE); NITRITE,URINE NEGATIVE (NEGATIVE); PROTEIN,URINE 100 mg/dL (NEGATIVE); URINE SPECIFIC GRAVITY 1.005; UROBILINOGEN,URINE NEGATIVE mg/dL (<2.0)
[2019-02-12 15:46] LABS: ALBUMIN 4.1 g/dL (3.5-5.0); ALKALINE PHOSPHATASE 82 U/L (38-126); ANION GAP 10 (5-19); ASPARTATE AMINO TRANSFERASE 24 U/L (14-36); BILIRUBIN,DIRECT 0.3 mg/dL (0.0-0.4); BILIRUBIN,TOTAL 0.6 mg/dL (0.2-1.3); BLOOD UREA NITROGEN 30 mg/dL (7-20); CALCIUM 9.2 mg/dL (8.4-10.2); CARBON DIOXIDE 28 mmol/L (22-30); CHLORIDE 101 mmol/L (98-107); GLUCOSE 92 mg/dL (75-110); POTASSIUM 4.1 mmol/L (3.6-5.0); TOTAL PROTEIN 6.8 g/dL (6.3-8.2)
[2019-02-12] MEDS ORDERED: CEPHALEXIN 500 MG CAPSULE PO ONE (16:42)
[2019-02-12] MEDS ORDERED: ACETAMINOPHEN 325 MG TABLET PO ONE (16:50)
[2019-02-12 17:08] VITALS: BP 140/77
--- NOTE | 2019-02-12 19:00 | EKG REPORT ---
SEVERITY:- BORDERLINE ECG - SINUS RHYTHM BORDERLINE PROLONGED QT INTERVAL : Confirmed by: Catarino Sinclair MD 12-Feb-2019 18:59:30
== END 2019-02-12 17:17 | disposition home or self-care (01) ==
LOC: ER 13:49
DX: I95.3 Hypotension of hemodialysis (principal); R55 Syncope and collapse; N39.0 Urinary tract infection, site not specified; I12.0 Hypertensive chronic kidney disease with stage 5 chronic kidney disease or end stage renal disease; N18.6 End stage renal disease; Z99.2 Dependence on renal dialysis; R53.83 Other fatigue; J44.9 Chronic obstructive pulmonary disease, unspecified; R42 Dizziness and giddiness; R60.0 Localized edema; I25.10 Atherosclerotic heart disease of native coronary artery without angina pectoris; I25.2 Old myocardial infarction; Z95.5 Presence of coronary angioplasty implant and graft; Z88.2 Allergy status to sulfonamides; Z85.3 Personal history of malignant neoplasm of breast
CPT/HCPCS: 93005; 36415; 87086; 84443; 85025; 87088; 80053; 81001; 84484; 87186; 71045; 93010; A9270 ×2; 99284

== ENCOUNTER → 2019-02-18 | Outpatient (CLI) | payer MEDICARE, OTHER ==
--- NOTE | 2019-02-18 12:57 | RADIOLOGY REPORT (SQ) ---
EXAM DESCRIPTION: CAROTID DOPPLER COMPLETED DATE/TIME: 02/18/2019 10:06 am REASON FOR STUDY: BRUIT R09.89 OTH SYMPTOMS AND SIGNS INVOLVING THE CIRC AND RESP SY COMPARISON: 07/24/2018 TECHNIQUE: Grayscale ultrasound, Doppler velocity and spectra, and color Doppler images acquired of the extra-cranial carotid and vertebral arteries. Images stored on PACS. LIMITATIONS: None. FINDINGS: RIGHT CAROTID CCA Velocities: Within normal limits. ICA Velocities Peak systolic 130 cm/s. End diastolic 15 cm/s. Proximal ICA/CCA peak systolic ratio 1.2. There are scattered plaques in the common carotid, carotid bulb, and proximal ICA. LEFT CAROTID CCA Velocities: Within normal limits. ICA Velocities Peak systolic 128 cm/s. End diastolic 17 cm/s. Proximal ICA/CCA peak systolic ratio 1.5. There plaques in the common carotid, carotid bulb, and proximal ICA. VERTEBRAL ARTERIES: Retrograde flow in the right vertebral. SUBCLAVIAN ARTERIES: No finding. OTHER: No other significant finding. IMPRESSION: Atherosclerotic changes with no hemodynamically significant stenosis. There is retrogra de flow in the right vertebral artery. COMMENT: Quality ID #[id number]: Velocity criteria are extrapolated from the diameter data as defined by t he Society of Radiologists in Ultrasound Consensus Conference. Radiology 2003: 229; 340-346. TECHNICAL DOCUMENTATION: JOB ID: [id number] [employer]- All Rights Reserved Reading location - IP/workstation name: [email or web address]
== END ==
LOC: RAD 08:30
PROVIDERS: ATTEND Internal Medicine Cardiovascular Disease
DX: R09.89 Other specified symptoms and signs involving the circulatory and respiratory systems (principal)
CPT/HCPCS: 93880

== ENCOUNTER → 2019-02-19 | Outpatient (CLI) | payer MEDICARE, OTHER ==
[2019-02-19 10:54] LABS: URINE CREATININE 39.9 mg/dL (15-278)
[2019-02-19 11:17] LABS: CREATININE 3.67 mg/dL (0.52-1.25)
== END ==
LOC: OD 09:41
PROVIDERS: ATTEND Physician Assistant Medical
DX: N18.6 End stage renal disease (principal)
CPT/HCPCS: 36415; 82575

== ENCOUNTER → 2019-02-24 | Outpatient (CLI) | payer MEDICARE, OTHER ==
[2019-02-24 16:13] LABS: ANION GAP 9 (5-19); BLOOD UREA NITROGEN 52 mg/dL (7-20); CALCIUM 9.5 mg/dL (8.4-10.2); CARBON DIOXIDE 22 mmol/L (22-30); CHLORIDE 108 mmol/L (98-107); GLUCOSE 83 mg/dL (75-110); POTASSIUM 5.4 mmol/L (3.6-5.0)
== END ==
LOC: OD 14:45
PROVIDERS: ATTEND Physician Assistant Medical
DX: N18.5 Chronic kidney disease, stage 5 (principal)
CPT/HCPCS: 36415; 80048

== ENCOUNTER → 2019-03-03 | Outpatient (CLI) | payer MEDICARE, OTHER ==
[2019-03-03 11:12] LABS: ABSOLUTE EOSINOPHILS # (AUTO) 0.1 10^3/uL (0.0-0.6); ABSOLUTE LYMPHOCYTES (AUTO) 1.2 10^3/uL (0.5-4.7); ABSOLUTE MONOCYTES (AUTO) 0.5 10^3/uL (0.1-1.4); ABSOLUTE NEUT (AUTO) 3.8 10^3/uL (1.7-8.2); BASOPHILS % (AUTO) 0.8 % (0-2); EOSINOPHILS % (AUTO) 1.8 % (0-6); HEMATOCRIT 36.5 % (36.0-47.0); HEMOGLOBIN 12.4 g/dL (12.0-15.5); LYMPHOCYTES % (AUTO) 21.2 % (13-45); MEAN CORPUSCULAR HEMOGLOBIN 31.7 pg (27.0-33.4); MEAN CORPUSCULAR VOLUME 93 fl (80-97); MONOCYTES % (AUTO) 8.5 % (3-13); PLATELET COUNT 263 10^3/uL (150-450); RED BLOOD COUNT 3.92 10^6/uL (3.72-5.28); RED CELL DISTRIBUTION WIDTH 13.5 % (11.5-14.0); SEGMENTED NEUTROPHILS % (AUTO) 67.7 % (42-78); TOTAL CELLS COUNTED % (AUTO) 100 %; WHITE BLOOD COUNT 5.6 10^3/uL (4.0-10.5)
[2019-03-03 11:21] LABS: APPEARANCE,URINE CLEAR; BILIRUBIN,URINE NEGATIVE (NEGATIVE); COLOR,URINE STRAW; GLUCOSE, URINE NEGATIVE (NEGATIVE); KETONES,URINE NEGATIVE (NEGATIVE); LEUKOCYTE ESTERASE,URINE NEGATIVE (NEGATIVE); NITRITE,URINE NEGATIVE (NEGATIVE); PROTEIN,URINE 30 mg/dL (NEGATIVE); URINE SPECIFIC GRAVITY 1.005; UROBILINOGEN,URINE NEGATIVE mg/dL (<2.0)
[2019-03-03 11:35] LABS: ANION GAP 10 (5-19); BLOOD UREA NITROGEN 63 mg/dL (7-20); CALCIUM 9.9 mg/dL (8.4-10.2); CARBON DIOXIDE 20 mmol/L (22-30); CHLORIDE 111 mmol/L (98-107); POTASSIUM 4.8 mmol/L (3.6-5.0)
[2019-03-03 11:39] LABS: GLUCOSE 65 mg/dL (75-110)
== END ==
LOC: OD 10:50
PROVIDERS: ATTEND Physician Assistant Medical
DX: I12.0 Hypertensive chronic kidney disease with stage 5 chronic kidney disease or end stage renal disease (principal); N18.5 Chronic kidney disease, stage 5; D64.9 Anemia, unspecified
CPT/HCPCS: 36415; 80048; 81001; 85025

== ENCOUNTER → 2019-03-09 | Outpatient (CLI) | payer MEDICARE, OTHER ==
[2019-03-09 12:55] LABS: ABSOLUTE BASOPHILS # (AUTO) 0.1 10^3/uL (0.0-0.2); ABSOLUTE EOSINOPHILS # (AUTO) 0.1 10^3/uL (0.0-0.6); ABSOLUTE LYMPHOCYTES (AUTO) 1.4 10^3/uL (0.5-4.7); ABSOLUTE MONOCYTES (AUTO) 0.4 10^3/uL (0.1-1.4); ABSOLUTE NEUT (AUTO) 4.8 10^3/uL (1.7-8.2); BASOPHILS % (AUTO) 0.8 % (0-2); HEMATOCRIT 34.4 % (36.0-47.0); HEMOGLOBIN 11.9 g/dL (12.0-15.5); LYMPHOCYTES % (AUTO) 19.8 % (13-45); MEAN CORPUSCULAR HEMOGLOBIN 31.9 pg (27.0-33.4); MEAN CORPUSCULAR HGB CONC 34.6 g/dL (32.0-36.0); MEAN CORPUSCULAR VOLUME 92 fl (80-97); MONOCYTES % (AUTO) 6.5 % (3-13); PLATELET COUNT 230 10^3/uL (150-450); RED BLOOD COUNT 3.74 10^6/uL (3.72-5.28); RED CELL DISTRIBUTION WIDTH 13.3 % (11.5-14.0); SEGMENTED NEUTROPHILS % (AUTO) 70.9 % (42-78); TOTAL CELLS COUNTED % (AUTO) 100 %; WHITE BLOOD COUNT 6.8 10^3/uL (4.0-10.5)
[2019-03-09 13:15] LABS: ANION GAP 10 (5-19); BLOOD UREA NITROGEN 57 mg/dL (7-20); CALCIUM 9.3 mg/dL (8.4-10.2); CARBON DIOXIDE 18 mmol/L (22-30); CHLORIDE 111 mmol/L (98-107); GLUCOSE 110 mg/dL (75-110); POTASSIUM 4.7 mmol/L (3.6-5.0)
== END ==
LOC: OD 12:21
PROVIDERS: ATTEND Physician Assistant Medical
DX: I12.0 Hypertensive chronic kidney disease with stage 5 chronic kidney disease or end stage renal disease (principal); N18.5 Chronic kidney disease, stage 5; E87.5 Hyperkalemia; D63.1 Anemia in chronic kidney disease; R60.9 Edema, unspecified
CPT/HCPCS: 36415; 80048; 83970; 84100; 85025

== ENCOUNTER → 2019-03-17 | Outpatient (CLI) | payer MEDICARE, OTHER ==
[2019-03-17 11:38] LABS: ANION GAP 9 (5-19); BLOOD UREA NITROGEN 65 mg/dL (7-20); CALCIUM 9.6 mg/dL (8.4-10.2); CARBON DIOXIDE 20 mmol/L (22-30); CHLORIDE 111 mmol/L (98-107); GLUCOSE 74 mg/dL (75-110); POTASSIUM 5.5 mmol/L (3.6-5.0)
== END ==
LOC: OD 10:25
PROVIDERS: ATTEND Physician Assistant Medical
DX: N18.5 Chronic kidney disease, stage 5 (principal)
CPT/HCPCS: 36415; 80048; 84132

== ENCOUNTER 2019-03-29 09:28 | Emergency (ER) | payer MEDICARE, OTHER ==
--- NOTE | 2019-03-29 10:02 | ER Document Report ---
ED Respiratory Problem - General Chief Complaint: Shortness Of Breath Stated Complaint: DIFFICULTY BREATHING/WEAKNESS Time Seen by Provider: 03/29/19 09:46 Primary Care Provider: LESLY VICTOR PA-C [ALLIED HEALTH PROFESSIONAL] - Follow up as needed Mode of Arrival: Ambulatory Information source: Patient Notes: Chief complaint: Shortness of breath History of complain: 78 years old female with a history of end-stage renal disease, had dialysis 1 month ago, presents today with 2 to 3-day history of generalized, progressive weakness tiredness and difficulty in breathing. Denies any fever chills. Denies any chest pain. Denies any vomiting or diarrhea. But nauseous. Onset: As above Duration: Last few days Severity: Moderate Quality: As above Context: As above Exacerbating factor and relieving factors: Exertion REVIEW OF SYSTEMS: CONSTITUTIONAL : Denies fever, chills, or sweats. Denies recent illness. EENT: Denies eye, ear, throat, or mouth pain or symptoms. Denies nasal or sinus congestion or discharge. Denies throat, tongue, or mouth swelling or difficulty swallowing. CARDIOVASCULAR: Denies chest pain. Denies palpitations or racing or irregular heart beat. Denies ankle edema. RESPIRATORY: Denies cough, cold, or chest congestion. GASTROINTESTINAL: Denies abdominal pain or distention. Denies nausea, vomiting, or diarrhea. Denies blood in vomitus, stools, or per rectum. Denies black, tarry stools. Denies constipation. GENITOURINARY: Denies difficulty urinating, painful urination, burning, frequency, blood in urine, or discharge. MUSCULOSKELETAL: Denies back or neck pain or stiffness. Denies joint pain or swelling. SKIN: Denies rash, lesions or sores. HEMATOLOGIC : Denies easy bruising or bleeding. LYMPHATIC: Denies swollen, enlarged glands. NEUROLOGICAL: Denies confusion or altered mental status. Denies passing out or loss of consciousness. Denies dizziness or lightheadedness. Denies headache. Denies weakness or paralysis or loss of use of either side. Denies problems with gait or speech. Denies sensory loss, numbness, or tingling. Denies seizures. PSYCHIATRIC: Denies anxiety or stress. Denies depression, suicidal ideation, or homicidal ideation. ALL OTHER SYSTEMS REVIEWED AND NEGATIVE. Dictation was performed using [employer] recognition software PHYSICAL EXAMINATION: GENERAL: , well-nourished and in mild to moderate acute distress. HEAD: Atraumatic, normocephalic. EYES: Pupils equal round and reactive to light, extraocular movements intact, sclera anicteric, conjunctiva are normal. ENT: Nares patent, oropharynx clear without exudates. Moist mucous membranes. NECK: Normal range of motion, supple without lymphadenopathy LUNGS: Breath sounds .... Bilaterally decreased with lower lung crackles were heard particularly on the left lower lung field. No wheezes HEART: Regular rate and rhythm without murmurs ABDOMEN: Soft, nontender, nondistended abdomen. No guarding, no rebound. No masses appreciated. Musculoskeletal: Normal range of motion, no pitting or edema. No cyanosis. NEUROLOGICAL: Cranial nerves grossly intact. Normal speech, normal gait. Normal sensory, motor exams PSYCH: Normal mood, normal affect. SKIN: Warm, Dry, normal turgor, no rashes or lesions noted. TRAVEL OUTSIDE OF THE [place] IN LAST 30 DAYS: No - HPI Notes: Dictated - Related Data Allergies/Adverse Reactions: Sulfa (Sulfonamide Antibiotics) Allergy (Severe, Verified 03/29/19 09:38) unsure pregabalin [From Lyrica] Adverse Reaction (Severe, Verified 03/29/19 09:38) irritable,weight gain Past Medical History - Social History Smoking Status: Former Smoker Cigarette use (# per day): No Chew tobacco use (# tins/day): No Smoking Education Provided: No Frequency of alcohol use: None Drug Abuse: None Lives with: Family Family History: Reviewed & Not Pertinent, CAD, Other Patient has suicidal ideation: No Patient has homicidal ideation: No - Past Medical History Cardiac Medical History: Reports: Hx Atrial Fibrillation - Paroxysmal, anticoagulation discontinued due to GI bleed episodes, Hx Coronary Artery Disease, Hx Heart Attack - [place] X1, STENT PLACED 2000, Hx Hypercholesterolemia, Hx Hypertension - Pt has hypotension at this time Denies: Hx Congestive Heart Failure Pulmonary Medical History: Reports: Hx COPD - ON 3 L O2 NC CONTINUOUS, Hx Sleep Apnea Neurological Medical History: Reports: Hx Cerebrovascular Accident - CVA X3 LEFT WEAKER THAN RIGHT. Denies: Hx Seizures Endocrine Medical History: Reports: Hx Hypothyroidism. Denies: Hx Diabetes Sobia litus Type 2 Renal/ Medical History: Reports: Hx End Stage Renal Disease, Hx Hemodialysis - Dialyzes every Friday and Friday., Hx Renal Insufficiency - Chronic kidney disease stage III. Denies: Hx Peritoneal Dialysis Malignancy Medical History: Reports: Hx Breast Cancer - Status post mastectomy GI Medical History: Reports: Hx ColonoscopyComment Only: Hx Ulcer - DIVERTICULITIS Musculoskeletal Medical History: Psychiatric Medical History: Denies: Hx Depression Infectious Medical History: Past Surgical History: Reports: Hx Appendectomy, Hx Cardiac Catheterization, Hx Cardiac Surgery - STENT, Hx Cholecystectomy, Hx Coronary Stent - August 2014, Hx Mastectomy, Hx Tubal Ligation, Hx Vascular Surgery - PermCath placement for dialysis with subsequent AVF for dialysis, Other - AV fistula formation for hemodialysis - Immunizations Hx Diphtheria, Pertussis, Tetanus Vaccination: Yes Hx Pneumococcal Vaccination: 07/07/12 Review of Systems - Review of Systems Notes: Dictated Physical Exam - Vital signs Vitals: Pulse Ox 100 03/29/19 09:36 - Notes Notes: Dictated Course - Re-evaluation Re-evalutation: 03/29/19 15:06 Given IV fluid with clinical improvement discharge home. 2 sets of troponin came back negative patient improved - Vital Signs Vital signs: Temp Pulse Resp BP Pulse Ox 97.6 F 78 20 163/75 H 96 03/29/19 09:52 03/29/19 09:52 03/29/19 14:01 03/29/19 14:01 03/29/19 14:01 - Laboratory Result Diagrams: 03/29/19 09:52 03/29/19 09:52 Laboratory results interpreted by me: 03/29/19 03/29/19 03/29/19 09:52 09:52 10:05 Hct 35.9 L Carbonic Acid ABG pCO2 ABG pO2 ABG HCO3 ABG Total CO2 ABG O2 Saturation Chloride 114 H Carbon Dioxide 17 L BUN 55 H Creatinine 3.38 H Est GFR ( Amer) 16 L Est GFR (MDRD) Non-Af 13 L Urine Protein 100 H Urine Blood SMALL H Ur Leukocyte Esterase TRACE H 03/29/19 10:27 Hct Carbonic Acid 0.78 L ABG pCO2 25.9 L ABG pO2 63.8 L ABG HCO3 15.2 L ABG Total CO2 16.0 L ABG O2 Saturation 92.6 L Chloride Carbon Dioxide BUN Creatinine Est GFR ( Amer) Est GFR (MDRD) Non-Af Urine Protein Urine Blood Ur Leukocyte Esterase Discharge - Discharge Clinical Impression: Dehydration, Chronic renal failure, stage 5 Condition: Fair Disposition: HOME, SELF-CARE Instructions: Dehydration ([facility]), Kidney Failure ([facility]) Referrals: LESLY VICTOR PA-C [ALLIED HEALTH PROFESSIONAL] - Follow up as needed
[2019-03-29 10:03] LABS: ABSOLUTE BASOPHILS # (AUTO) 0.1 10^3/uL (0.0-0.2); ABSOLUTE EOSINOPHILS # (AUTO) 0.1 10^3/uL (0.0-0.6); ABSOLUTE MONOCYTES (AUTO) 0.4 10^3/uL (0.1-1.4); ABSOLUTE NEUT (AUTO) 3.8 10^3/uL (1.7-8.2); BASOPHILS % (AUTO) 1.3 % (0-2); EOSINOPHILS % (AUTO) 2.2 % (0-6); HEMATOCRIT 35.9 % (36.0-47.0); HEMOGLOBIN 12.2 g/dL (12.0-15.5); LYMPHOCYTES % (AUTO) 19.5 % (13-45); MEAN CORPUSCULAR HEMOGLOBIN 31.6 pg (27.0-33.4); MEAN CORPUSCULAR VOLUME 93 fl (80-97); MONOCYTES % (AUTO) 7.1 % (3-13); PLATELET COUNT 240 10^3/uL (150-450); RED BLOOD COUNT 3.86 10^6/uL (3.72-5.28); RED CELL DISTRIBUTION WIDTH 13.3 % (11.5-14.0); SEGMENTED NEUTROPHILS % (AUTO) 69.9 % (42-78); TOTAL CELLS COUNTED % (AUTO) 100 %; WHITE BLOOD COUNT 5.4 10^3/uL (4.0-10.5)
[2019-03-29 10:20] LABS: ALBUMIN 3.8 g/dL (3.5-5.0); ALKALINE PHOSPHATASE 83 U/L (38-126); ANION GAP 10 (5-19); ASPARTATE AMINO TRANSFERASE 17 U/L (14-36); BILIRUBIN,DIRECT 0.3 mg/dL (0.0-0.4); BILIRUBIN,TOTAL 0.6 mg/dL (0.2-1.3); BLOOD UREA NITROGEN 55 mg/dL (7-20); CALCIUM 9.9 mg/dL (8.4-10.2); CARBON DIOXIDE 17 mmol/L (22-30); CHLORIDE 114 mmol/L (98-107); GLUCOSE 96 mg/dL (75-110); POTASSIUM 4.8 mmol/L (3.6-5.0); TOTAL PROTEIN 6.5 g/dL (6.3-8.2)
--- NOTE | 2019-03-29 10:25 | RADIOLOGY REPORT (SQ) ---
EXAM DESCRIPTION: CHEST SINGLE VIEW COMPLETED DATE/TIME: 03/29/2019 10:17 am REASON FOR STUDY: SOB COMPARISON: 02/12/2019 and 06/13/2018. EXAM PARAMETERS: NUMBER OF VIEWS: One view. TECHNIQUE: Single frontal radiographic view of the chest acquired. RADIATION DOSE: NA LIMITATIONS: None. FINDINGS: LUNGS AND PLEURA: Chronic interstitial changes. No focal infiltrates, masses or pneumotho rax. No pleural effusion. MEDIASTINUM AND HILAR STRUCTURES: No masses. Contour normal. HEART AND VASCULAR STRUCTURES: Heart normal in size. Normal vasculature. BONES: No acute findings. HARDWARE: None in the chest. OTHER: No other significant finding. IMPRESSION: STABLE CHRONIC CHANGES. NO ACUTE RADIOGRAPHIC FINDING IN THE CHEST. TECHNICAL DOCUMENTATION: JOB ID: [id number] [employer]- All Rights Reserved Reading location - IP/workstation name: [email or web address]
[2019-03-29 10:30] LABS: APPEARANCE,URINE CLEAR; BILIRUBIN,URINE NEGATIVE (NEGATIVE); COLOR,URINE COLORLESS; GLUCOSE, URINE NEGATIVE (NEGATIVE); KETONES,URINE NEGATIVE (NEGATIVE); LEUKOCYTE ESTERASE,URINE TRACE (NEGATIVE); NITRITE,URINE NEGATIVE (NEGATIVE); PROTEIN,URINE 100 mg/dL (NEGATIVE); URINE SPECIFIC GRAVITY 1.005; UROBILINOGEN,URINE NEGATIVE mg/dL (<2.0)
[2019-03-29 10:32] LABS: CREATINE KINASE MB 0.73 ng/mL (<4.55)
[2019-03-29 10:36] LABS: TROPONIN I < 0.012 ng/mL
[2019-03-29 10:51] LABS: ARTERIAL BLOOD BASE EXCESS -8.2 mmol/L; ARTERIAL BLOOD FIO2 ROOM AIR; ARTERIAL BLOOD H2CO3 0.78 mmol/L (1.05-1.35); ARTERIAL BLOOD HCO3 15.2 mmol/L (20-24); ARTERIAL BLOOD O2 SATURATION 92.6 % (94-98); ARTERIAL BLOOD PCO2 25.9 mmHg (35-45); ARTERIAL BLOOD PH 7.39 (7.35-7.45); ARTERIAL BLOOD PO2 63.8 mmHg (80-100)
[2019-03-29] MEDS ORDERED: NORMAL SALINE 500 ML IV ONE (11:30)
[2019-03-29 15:20] VITALS: BP 165/69
--- NOTE | 2019-03-29 22:18 | EKG REPORT ---
SEVERITY:- ABNORMAL ECG - SINUS RHYTHM LVH WITH IVCD AND SECONDARY REPOL ABNRM vs ISCHEMIA : Confirmed by: Brittni Alonso 29-Mar-2019 22:16:53
--- NOTE | 2019-03-29 22:18 | EKG REPORT ---
SEVERITY:- ABNORMAL ECG - SINUS RHYTHM PROBABLE LVH WITH SECONDARY REPOL ABNRM : Confirmed by: Brittni Alonso 29-Mar-2019 22:17:05
== END 2019-03-29 15:52 | disposition home or self-care (01) ==
LOC: ER 09:28
DX: E86.0 Dehydration (principal); I12.0 Hypertensive chronic kidney disease with stage 5 chronic kidney disease or end stage renal disease; E11.22 Type 2 diabetes mellitus with diabetic chronic kidney disease; N18.5 Chronic kidney disease, stage 5; Z99.2 Dependence on renal dialysis; R06.02 Shortness of breath; R53.1 Weakness; Z87.891 Personal history of nicotine dependence
CPT/HCPCS: 93005; 36415; 82553; 82803; 82550; 85025; 80053; 81001; 84484; 83605; 71045; 93010; J7040; 96360; 99285

== ENCOUNTER → 2019-04-13 | Outpatient (CLI) | payer MEDICARE, OTHER ==
[2019-04-14 07:38] LABS: HEPATITIS C VIRUS AB <0.1 s/co ratio (0.0-0.9); HEPATITS B SURFACE ANTIGEN Negative (Negative)
[2019-04-14 11:15] LABS: HEPATITIS B CORE AB TOT Negative (Negative)
== END ==
LOC: OD 10:39
PROVIDERS: ATTEND Physician Assistant Medical
DX: N18.6 End stage renal disease (principal); Z11.59 Encounter for screening for other viral diseases
CPT/HCPCS: 36415; 86317; 86704; 86803; 86804; 87340

== ENCOUNTER → 2019-05-18 | Outpatient (CLI) | payer MEDICARE, OTHER ==
[2019-05-18 10:46] LABS: FREE T4 (FREE THYROXINE) 1.23 ng/dL (0.78-2.19)
[2019-05-18 11:00] LABS: THYROID STIMULATING HORMONE 4.74 uIU/mL (0.47-4.68)
== END ==
LOC: OD 09:39
PROVIDERS: ATTEND Family Medicine
DX: E03.9 Hypothyroidism, unspecified (principal)
CPT/HCPCS: 36415; 83735; 84439; 84443; 84481

== ENCOUNTER 2019-06-09 17:20 | Inpatient (IN) | payer MEDICARE, OTHER ==
--- NOTE | 2019-06-09 17:30 | ER Document Report ---
ED Medical Screen (RME) - General Chief Complaint: Numbness of Face Stated Complaint: LEFT ARM/LEG NUMB,FACIAL NUMBNESS Time Seen by Provider: 06/09/19 17:23 Primary Care Provider: GIANNA BOURGEOIS MD [Primary Care Provider] - Follow up as needed Mode of Arrival: Wheelchair Information source: Patient, Relative Notes: 79-year-old female with history of TIA and strokes presents to the emergency department with new onset left-sided weakness. Patient was at dialysis in [place]. Reports she drove herself there. Her son was contacted at approximately 11:00 this morning with reports that patient was having trouble speaking and left-sided weakness. He reports that symptoms seem to resolve but then they came back. He was told that she could not walk. Patient is having trouble talking. 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 Unable to raise her left arm fully due to weakness. Also complains of uncomfortable chest pain. Denies history of cardiac disease. I have greeted and performed a rapid initial assessment of this patient. A comprehensive ED assessment and evaluation of the patient, analysis of test results and completion of the medical decision making process will be conducted by additional ED providers. Dictation of this chart was performed using voice recognition software; therefore, there may be some unintended grammatical errors. TRAVEL OUTSIDE OF THE [place] IN LAST 30 DAYS: No - Related Data Allergies/Adverse Reactions: Sulfa (Sulfonamide Antibiotics) Allergy (Severe, Verified 03/29/19 09:38) unsure pregabalin [From Lyrica] Adverse Reaction (Severe, Verified 03/29/19 09:38) irritable,weight gain Past Medical History - Past Medical History Cardiac Medical History: Reports: Hx Atrial Fibrillation - Paroxysmal, anticoagulation discontinued due to GI bleed episodes, Hx Coronary Artery Disease, Hx Heart Attack - [place] X1, STENT PLACED 2000, Hx Hypercholesterolemia, Hx Hypertension - Pt has hypotension at this time Denies: Hx Congestive Heart Failure Pulmonary Medical History: Reports: Hx COPD - ON 3 L O2 NC CONTINUOUS, Hx Sleep Apnea Neurological Medical History: Reports: Hx Cerebrovascular Accident - CVA X3 LEFT WEAKER THAN RIGHT. Denies: Hx Seizures Endocrine Medical History: Reports: Hx Hypothyroidism. Denies: Hx Diabetes Mellitus Type 2 Renal/ Medical History: Reports: Hx End Stage Renal Disease, Hx Hemodialysis - Dialyzes every Friday and Friday., Hx Renal Insufficiency - Chronic kidney disease stage III. Denies: Hx Peritoneal Dialysis Malignancy Medical History: Reports: Hx Breast Cancer - Status post mastectomy GI Medical History: Reports: Hx ColonoscopyComment Only: Hx Ulcer - DIVERTICULITIS Musculoskeltal Medical History: Psychiatric Medical History: Denies: Hx Depression Infectious Medical History: Past Surgical History: Reports: Hx Appendectomy, Hx Cardiac Catheterization, Hx Cardiac Surgery - STENT, Hx Cholecystectomy, Hx Coronary Stent - August 2014, Hx Mastectomy, Hx Tubal Ligation, Hx Vascular Surgery - PermCath placement for dialysis with subsequent AVF for dialysis, Other - AV fistula formation for hemodialysis - Immunizations Hx Diphtheria, Pertussis, Tetanus Vaccination: Yes Doctor's Discharge - Discharge Referrals: GIANNA BOURGEOIS MD [Primary Care Provider] - Follow up as needed
--- NOTE | 2019-06-09 17:56 | ER Document Report ---
ED NIH Stroke Scale - NIH Stroke Scale *: 1. NIH scale should be completed with appropriate accompanying assessment tools. *: 2. The NIH should reflect what the patient is capable of doing and should not be coached by the clinician. 1a. Level of Consciousness: 0=Alert;keenly responsive -: 1=Drowsy -: 2=Obtunded -: 3=Coma/unresponsive or reflex to noxious stimuli. 1a. Responses: 0 1b. Orientation Questions: a. What month is it? -: b. How old are you? -: 0=Answers both questions correctly. -: 1=Answers one question correctly or patient is intubated or has orotracheal trauma. -: 2=Answers neither question correctly. 1b. Responses: 0 1c. Response to commands: a. Open and close eyes? -: b. House Calls Nurse Practitioner and release hand? -: Credit is given despite weakness. Demonstration of task is permitted. Substitute command if hands cannot be used. -: 0=Performs both tasks correctly -: 1=Performs one task correctly -: 2=Performs neither task correctly 1c. Responses: 1 2. Gaze: Establish eye contact and instruct patient to "Follow my finger" -: 0=Normal -: 1=Partial gaze palsy. Gaze is abnormal in one or both eyes, but where forced deviation or total gaze paresis is not present. -: 2=Forced deviation or total gaze paresis. 2. Responses: 0 3. Visual Tran: Sees fingers in all four quadrants. -: 0=No visual loss. -: 1=Partial hemianopsia. -: 2=Complete hemianopsia. -: 3=Bilateral hemianopsia (including Cortical blindness) 3. Responses: 0 4. Facial Movement: Instruct patient to: -: a. Show me your teeth -: b. Raise your eyebrows -: c. Close your eyes -: d. Smile -: 0=Normal symmetrical movement -: 1=Minor paralysis (flattened nasolabial fold, asymmetry on smiling). -: 2=Partial paralysis (total or near total paralysis of lower face). -: 3=Complete paralysis of upper and lower face 4. Responses: 2 5. Motor functions (left arm): Alternate sides and extend each arm with palms down (90 degrees if sitting or 45 degrees for supine). -: 0=No drift;limb holds for full 10 seconds. -: 1=Drift; limb holds but drifts down before full 10 seconds, but does not hit bed. -: 2=Some effort against gravity; limb cannot get to or maintain position. -: 3=No effort against gravity; limb falls. -: 4=No movement. -: UN=Amputation, joint fusion, explain in comments. 5. Responses (left arm): 1 5. Motor Functions (right arm): Alternate sides and extend each arm with palms down (90 degrees if sitting or 45 degrees for supine). -: 0=No drift;limb holds for full 10 seconds. -: 1=Drift; limb holds but drifts down before full 10 seconds, but does not hit bed. -: 2=Some effort against gravity; limb cannot get to or maintain position. -: 3=No effort against gravity; limb falls. -: 4=No movement. -: UN=Amputation, joint fusion, explain in comments. 5. Responses (right arm): 0 6. Motor Functions (left leg): With patient lying supine, alternate sides and extend each leg (30 degrees always while supine). -: 0=No drift, leg holds position for full 5 seconds -: 1=Drift; leg falls before full 5 seconds but does not hit bed. -: 2=Some effort against gravity, leg falls to bed but some effort against gravity. -: 3=No effort against gravity, leg falls to bed immediately. -: 4=No movement. -: UN=Amputation, joint fusion; explain in comments. 6. Responses (left leg): 3 6. Motor Functions (right leg): With patient lying supine, alternate sides and extend each leg (30 degrees always while supine). -: 0=No drift, leg holds position for full 5 seconds -: 1=Drift; leg falls before full 5 seconds but does not hit bed. -: 2=Some effort against gravity, leg falls to bed but some effort against gravity. -: 3=No effort against gravity, leg falls to bed immediately. -: 4=No movement. -: UN=Amputation, joint fusion; explain in comments. 6. Responses (right leg): 0 7. Limb Ataxia: With eyes open instruct patient to: -: a. "Touch your finger to your nose". -: b. "Touch your heel to your gallardo" -: 0=Absent -: 1=Present in one limb. -: 2=Present in two limbs. -: UN=Amputation or joint fusion; explain in comments. 7. Responses: 1 7. If ataxia present choose as appropriate: Left arm, Left leg 8. Sensory: Test sensation using pinprick or noxious stimuli. Test as many body parts as possible. -: 0=Normal;no sensory loss -: 1=Mile to moderate sensory loss (patient feels pin prick but is less sharp on affected side). -: 2=Severe or total sensory loss. 8. Responses: 1 9. Best Language: Instruct patient to: -: a. "Describe what you see in this picture." -: b. "Name the items in this picture." -: c. "Read these sentences." -: 0=No aphasia, normal -: 1=Mild to moderate aphasia. -: 2=Severe aphasia -: 3=Mute, global aphasia, no usable speech or auditory comprehension. 9. Responses: 0 10. Articulation, Dysarthia: Instruct patient to: -: "Read these words" or "Repeat these words" -: 0=Normal -: 1=Mild to moderate; patient may slur some words but can be understood without difficulty. -: 2=Severe; patients speech so slurred as to be unintelligible in the absence of dysphasia. -: UN=Intubated or other physical barrier, explain in comments. 10. Responses: 1 11. Extinction or inattention: 0=No abnormality -: 1= Visual, tactile, auditory, spatial, or personal inattention or extinction to bilateral simulation in one or the sensory modalities. -: 2=Profound trena-inattention or trena-inattention to more than one modality; does not recognize own hand. 11. Responses: 0 Total Score: 10
--- NOTE | 2019-06-09 18:02 | RADIOLOGY REPORT (SQ) ---
EXAM DESCRIPTION: CHEST SINGLE VIEW COMPLETED DATE/TIME: 06/09/2019 5:53 pm REASON FOR STUDY: left side weakness, hx stroke, dialysis COMPARISON: None. EXAM PARAMETERS: NUMBER OF VIEWS: One view. TECHNIQUE: Single frontal radiographic view of the chest acquired. RADIATION DOSE: NA LIMITATIONS: None. FINDINGS: LUNGS AND PLEURA: Chronic interstitial changes. No acute infiltrate or effusion. MEDIASTINUM AND HILAR STRUCTURES: No masses. Contour normal. HEART AND VASCULAR STRUCTURES: Heart size is borderline. No pulmonary edema. BONES: No acute findings. HARDWARE: None in the chest. OTHER: No other significant finding. IMPRESSION: Borderline cardiomegaly without pulmonary edema. Chronic lung changes. TECHNICAL DOCUMENTATION: JOB ID: [id number] [employer]- All Rights Reserved Reading location - IP/workstation name: [email or web address]
--- NOTE | 2019-06-09 18:11 | RADIOLOGY REPORT (SQ) ---
EXAM DESCRIPTION: CT HEAD WITHOUT COMPLETED DATE/TIME: 06/09/2019 5:57 pm REASON FOR STUDY: left side weakness, hx stroke, dialysis COMPARISON: MR 07/22/2018 CT 07/22/2018 TECHNIQUE: Axial images acquired through the brain without intravenous contrast. Images reviewed wi th bone, brain and subdural windows. Additional sagittal and coronal reconstructions were generated. Images stored on PACS. All CT scanners at this facility use dose modulation, iterative reconstruction, and/or weight based d osing when appropriate to reduce radiation dose to as low as reasonably achievable (ALARA). [facility]: Dose Right [facility]: CareDose [facility]: Dose Right [facility]: Teradose 4D [facility]: Smart [employer] RADIATION DOSE: CT Rad equipment meets quality standard of care and radiation dose reduction techniq ues were employed. CTDIvol: 53.2 mGy. DLP: 964 mGy-cm. mGy. LIMITATIONS: None. FINDINGS: VENTRICLES: Normal size and contour. CEREBRUM: No masses. No hemorrhage. No midline shift. No evidence for acute infarction. Areas of l ow density in the white matter most likely chronic small vessel ischemic changes. CEREBELLUM: No masses. No hemorrhage. No alteration of density. No evidence for acute infarction. EXTRAAXIAL SPACES: No fluid collections. No masses. ORBITS AND GLOBE: No intra- or extraconal masses. Normal contour of globe without masses. CALVARIUM: No fracture. PARANASAL SINUSES: No fluid or mucosal thickening. SOFT TISSUES: No mass or hematoma. OTHER: No other significant finding. IMPRESSION: Chronic microvascular ischemia with no acute intracranial imaging findings. EVIDENCE OF ACUTE STROKE: NO. COMMENT: Quality ID # [id number]: Final reports with documentation of one or more dose reduction techniques (e.g., Automated exposure control, adjustment of the mA and/or kV according to patient size, use of iterative reconstruction technique) TECHNICAL DOCUMENTATION: JOB ID: [id number] [employer]- All Rights Reserved Reading location - IP/workstation name: [email or web address]
--- NOTE | 2019-06-09 18:27 | ER Document Report ---
ED Neuro Symptoms/Deficit - General Chief Complaint: Numbness of Face Stated Complaint: LEFT ARM/LEG NUMB,FACIAL NUMBNESS Time Seen by Provider: 06/09/19 17:23 Primary Care Provider: GIANNA BOURGEOIS MD [Primary Care Provider] - Follow up as needed Mode of Arrival: Wheelchair Information source: Patient Notes: History of present illness. Ms. Acuña is a 79-year-old female patient who entered dialysis around 1230 as she walked into the dialysis department to her chair she was unable to complete her walk and states that she is on a just slumped into the dialysis chair. She had dialysis for 3 hours and 45 minutes and once completion of the dialysis she noted that she was unable to stand up and bear weight on her left leg and had facial numbness as well. Patient also admitted that during the dialysis she had pressure in her chest 3 out of 10 and she took 1 sublingual nitroglycerin that was given to her by the nursing staff. There was some improvement in her chest pressure at that time patient has a history of hypertension chronic renal failure hemodialysis patient thyroid disease. History of cardiac MRI in 2000 and history of previous CVAs and before 2008 and during 2008 she suffered a second seizure with left-sided residual weakness. Patient continues to have left-sided residual weakness however she graduated from prosthetic devices of canes and walkers and has been walking independently since then. Patient is a former smoker of tobacco who quit in 2005. TRAVEL OUTSIDE OF THE [place] IN LAST 30 DAYS: No - HPI Patient complains to provider of: Difficulty standing, Difficulty walking, Facial Droop, Weakness Onset: Other - Symptoms occurred around 1230 today Symptoms are: Worse/persistent Quality of pain: No pain Severity: Moderate Loss of consciousness: No loss of consciousness Was STROKE ALERT Called: No Baseline Cognitive: Alert, oriented X 3 Baseline Gait: Walks w/o assistance Alert To: Name/Voice, Shaking, Light Pain Patient Orientation: Person, Place, Time, Events New weakness: LUE, LLE, L facial Altered sensation: L facial Decreased ability to stand/walk: Cannot walk, Cannot stand Vision problem/glaucoma: No - Wears glasses Associated symptoms: Chest pain - Denies any chest pressure at this time Similar symptoms previously: Yes - Patient had previous CVA in 2008 with a residual left-sided weakness. Guillory - Related Data Allergies/Adverse Reactions: Sulfa (Sulfonamide Antibiotics) Allergy (Severe, Verified 03/29/19 09:38) unsure pregabalin [From Lyrica] Adverse Reaction (Severe, Verified 03/29/19 09:38) irritable,weight gain Past Medical History - General Information source: Patient, Relative - Social History Smoking Status: Former Smoker Frequency of alcohol use: None Drug Abuse: None Family History: Reviewed & Not Pertinent, CAD, Other - Past Medical History Cardiac Medical History: Reports: Hx Atrial Fibrillation - Paroxysmal, anticoagulation discontinued due to GI bleed episodes, Hx Coronary Artery Disease, Hx Heart Attack - [place] X1, STENT PLACED 2000, Hx Hypercholesterolemia, Hx Hypertension - Pt has hypotension at this time Denies: Hx Congestive Heart Failure Pulmonary Medical History: Reports: Hx COPD - ON 3 L O2 NC CONTINUOUS, Hx Sleep Apnea EENT Medical History: Reports: Eyes Neurological Medical History: Reports: Hx Cerebrovascular Accident - CVA X3 LEFT WEAKER THAN RIGHT. Denies: Hx Seizures Endocrine Medical History: Reports: Hx Hypothyroidism. Denies: Hx Diabetes M ellitus Type 2 Renal/ Medical History: Reports: Hx End Stage Renal Disease, Hx Hemodialysis - Dialyzes every Friday and Friday., Hx Renal Insufficiency - Chronic kidney d isease stage III. Denies: Hx Peritoneal Dialysis Malignancy Medical History: Reports: Hx Breast Cancer - Status post mastectomy GI Medical History: Reports: Hx ColonoscopyComment Only: Hx Ulcer - DIVERTICULITIS Musculoskeletal Medical History: Psychiatric Medical History: Denies: Hx Depression Infectious Medical History: Past Surgical History: Reports: Hx Appendectomy, Hx Cardiac Catheterization, Hx Cardiac Surgery - STENT, Hx Cholecystectomy, Hx Coronary Stent - August 2014, Hx Mastectomy, Hx Tubal Ligation, Hx Vascular Surgery - PermCath placement for dialysis with subsequent AVF for dialysis, Other - AV fistula formation for hemodialysis - Immunizations Hx Diphtheria, Pertussis, Tetanus Vaccination: Yes Hx Pneumococcal Vaccination: 07/07/12 Physical Exam - Vital signs Interpretation: Normal - General General appearance: Appears well, Alert In distress: Mild - HEENT Head: Normocephalic, Atraumatic Eyes: Normal Pupils: PERRL Corrective lenses worn: Yes - wears glasses Visual lam normal: Yes Hearing loss: Left, Right - wears hearing aids Mucous membranes: Normal Pharynx: Normal Neck: Carotid bruit, Other - bilateral bruits left greater than right. - Respiratory Respiratory status: No respiratory distress, Other - decreased breath sounds in both bases Chest status: Nontender Breath sounds: Normal Chest palpation: Normal - Cardiovascular Rhythm: Regular Heart sounds: Normal auscultation Murmur: No Pulses: Normal: Brachial, Radial, Decreased: Carotid - bilateral Normal capillary refill: Yes - Abdominal Inspection: Normal Distension: No distension Bowel sounds: Normal Tenderness: Nontender Organomegaly: No organomegaly - Back Back: Normal, Nontender - Extremities General upper extremity: Normal inspection, Nontender, Normal color, Normal ROM, Normal temperature General lower extremity: Normal inspection, Nontender, Normal color, Normal ROM, Normal temperature, Normal weight bearing. 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, left si Cognition: Normal Orientation: AAOx4 [place] Coma Scale Eye Opening: Spontaneous [place] Coma Scale Verbal: Oriented [place] Coma Scale Motor: Obeys Commands We[place] Coma Scale Total: 15 Speech: Normal, Other - mild dysarthria Cranial nerves: Other - diminished gag reflex Motor strength normal: LUE - left upper and lower motor strength diminished lower greater than upper, RUE, LLE, RLE Sensory: Normal - Psychological Associated symptoms: Normal affect, Normal mood - Skin Skin Temperature: Warm Skin Moisture: Dry Skin Color: Normal Skin Turgor: Elastic Course - Re-evaluation Re-evalutation: 06/09/19 19:43 patient symptoms began at 1230 PM today and arrived to hospital at a time greater than the 3 hour window for lytic therapy; therfore patient is not a candidate for thrombolytic therapy. This discussion was explained to patient. 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 - Laboratory Result Diagrams: 06/09/19 19:13 06/09/19 19:13 Discharge - Discharge Clinical Impression: End stage renal failure on dialysis, End-stage renal disease on hemodialysis, History of stroke with residual deficit Chest pain Qualifiers: Chest pain type: precordial pain Qualified Code(s): R07.2 - Precordial pain Coronary artery disease Qualifiers: Coronary Disease-Associated Artery/Lesion type: unspecified vessel or lesion type [place] vs. transplanted heart: [place] heart Associated angina: with unspecified angina Qualified Code(s): I25.119 - Atherosclerotic heart disease of [place] coronary artery with unspecified angina pectoris CVA (cerebral vascular accident) Qualifiers: CVA mechanism: thrombosis Precerebral and cerebral artery: unspecified cerebral artery Qualified Code(s): I63.30 - Cerebral infarction due to thrombosis of unspecified cerebral artery Condition: Serious Disposition: ADMITTED INPATIENT Admitting Provider: Prabhu (Hospitalist) Unit Admitted: IMCU Referrals: GIANNA BOURGEOIS MD [Primary Care Provider] - Follow up as needed
[2019-06-09 19:35] LABS: INTERNATIONAL RATION (INR) 1.09; PROTHROMBIN TIME 14.2 SEC (11.4-15.4)
[2019-06-09 19:36] LABS: PARTIAL THROMBOPLASTIN TIME 30.7 SEC (23.5-35.8)
[2019-06-09 19:44] LABS: ALBUMIN 3.6 g/dL (3.5-5.0); ALKALINE PHOSPHATASE 84 U/L (38-126); ANION GAP 6 (5-19); ASPARTATE AMINO TRANSFERASE 21 U/L (14-36); BILIRUBIN,DIRECT 0.2 mg/dL (0.0-0.4); BILIRUBIN,TOTAL 0.6 mg/dL (0.2-1.3); BLOOD UREA NITROGEN 12 mg/dL (7-20); CALCIUM 9.3 mg/dL (8.4-10.2); CARBON DIOXIDE 33 mmol/L (22-30); CHLORIDE 103 mmol/L (98-107); CREATINE KINASE 37 U/L (30-135); GLUCOSE 88 mg/dL (75-110); POTASSIUM 3.7 mmol/L (3.6-5.0); TOTAL PROTEIN 6.4 g/dL (6.3-8.2)
[2019-06-09 19:47] LABS: ABSOLUTE EOSINOPHILS # (AUTO) 0.1 10^3/uL (0.0-0.6); ABSOLUTE LYMPHOCYTES (AUTO) 1.3 10^3/uL (0.5-4.7); ABSOLUTE MONOCYTES (AUTO) 0.5 10^3/uL (0.1-1.4); ABSOLUTE NEUT (AUTO) 4.2 10^3/uL (1.7-8.2); BASOPHILS % (AUTO) 0.8 % (0-2); EOSINOPHILS % (AUTO) 1.7 % (0-6); HEMATOCRIT 32.3 % (36.0-47.0); HEMOGLOBIN 11.1 g/dL (12.0-15.5); LYMPHOCYTES % (AUTO) 20.7 % (13-45); MEAN CORPUSCULAR HEMOGLOBIN 31.9 pg (27.0-33.4); MEAN CORPUSCULAR HGB CONC 34.4 g/dL (32.0-36.0); MEAN CORPUSCULAR VOLUME 93 fl (80-97); PLATELET COUNT 182 10^3/uL (150-450); RED BLOOD COUNT 3.48 10^6/uL (3.72-5.28); RED CELL DISTRIBUTION WIDTH 13.1 % (11.5-14.0); SEGMENTED NEUTROPHILS % (AUTO) 68.8 % (42-78); TOTAL CELLS COUNTED % (AUTO) 100 %; WHITE BLOOD COUNT 6.1 10^3/uL (4.0-10.5)
[2019-06-09 19:56] LABS: CREATINE KINASE MB 0.65 ng/mL (<4.55)
[2019-06-09 19:57] LABS: TROPONIN I < 0.012 ng/mL
[2019-06-09] MEDS ORDERED: ACETAMINOPHEN 650 MG SUPP.RECT PR PRN (20:11)
[2019-06-09] MEDS ORDERED: DOCUSATE SODIUM 100 MG CAPSULE PO PRN (20:11)
[2019-06-09] MEDS ORDERED: ACETAMINOPHEN 325 MG TABLET PO PRN (20:11)
[2019-06-09] MEDS ORDERED: MAGNESIUM HYDROXIDE SUSP 30 ML UDCUP PO PRN (20:11)
[2019-06-09] MEDS ORDERED: HYDRALAZINE HCL INJ/PF 20 MG/1 ML SDV IV PRN (20:15)
[2019-06-09 21:05] LABS: APPEARANCE,URINE CLEAR; BILIRUBIN,URINE NEGATIVE (NEGATIVE); COLOR,URINE STRAW; GLUCOSE, URINE NEGATIVE (NEGATIVE); KETONES,URINE NEGATIVE (NEGATIVE); LEUKOCYTE ESTERASE,URINE NEGATIVE (NEGATIVE); NITRITE,URINE NEGATIVE (NEGATIVE); PROTEIN,URINE 100 mg/dL (NEGATIVE); URINE SPECIFIC GRAVITY 1.004; UROBILINOGEN,URINE NEGATIVE mg/dL (<2.0)
--- NOTE | 2019-06-09 21:40 | RADIOLOGY REPORT (SQ) ---
MR BRAIN WITHOUT IV CONTRAST MR ANGIOGRAPHY OF THE HEAD HISTORY: Subacute stroke. COMPARISON: CT scan from earlier the same day. TECHNIQUE: 1) Multisequence, multiplanar MR imaging of the brain was performed without the administration of intravenous gadolinium. 2) MR angiography of the head was performed without the administration of intravenous gadolinium. FINDINGS: MRI: There is a tiny focus of restricted diffusion in the right aspect of the efren consistent with acute infarct. Confluent areas of T2/FLAIR hyperintense foci are seen in the supratentorial white matter, likely representing chronic microvascular ischemia. There are prominent perivascular spaces in the region of the basal ganglia. There are tiny foci of blooming artifact within the bilateral cerebral hemispheres which may represent old petechial hemorrhages. There is no acute intracranial hemorrhage, extra-axial fluid collection, or mass. The brainstem, posterior fossa, and cervicomedullary junction are preserved. The intravascular flow voids are preserved. The orbits are unremarkable. No abnormality of the skull base or calvarium is seen. MRA: The anterior and posterior cerebral circulations are patent. No hemodynamically significant stenosis, aneurysmal dilatation or dissection is seen. No focal aneurysm is identified. IMPRESSION: 1. Acute infarct in the right hemipons. 2. Chronic microvascular ischemic disease. 3. Sequelae of old tiny petechial hemorrhages versus amyloid throughout the brain. 4. Unremarkable MR angiogram of the head.
[2019-06-09] MEDS: ATORVASTATIN CALCIUM 80 MG TABLET PO SCH (21:42)
[2019-06-09] MEDS: HEPARIN SOD (PORCINE) 5,000 UNIT/ML 1 ML VIAL SUBCUT SCH (21:45)
--- NOTE | 2019-06-10 00:03 | EKG REPORT ---
SEVERITY:- BORDERLINE ECG - SINUS RHYTHM BORDERLINE PROLONGED QT INTERVAL : Confirmed by: Katerina Murphy MD 10-Jun-2019 00:02:49
[2019-06-10 05:08] LABS: CHOLESTEROL 110.16 mg/dL (0-200); TRIGLYCERIDES 50 mg/dL (<150)
[2019-06-10 05:19] LABS: DIRECT LDL 39 mg/dL (<100)
--- NOTE | 2019-06-10 05:39 | PDOC H&P ---
History of Present Illness Admission Date/PCP: 06/09/19 20:21 GIANNA BOURGEOIS MD Patient complains of: Left-sided weakness History of Present Illness: EZRA SUERO is a 79 year old female with a past medical history of 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 fib without anticoagulation secondary to GI bleed, coronary artery disease with leelee nting, status post breast cancer with mastectomy, obstructive sleep apnea on CPAP and COPD. She presents 5 hours after the onset of left-sided weakness beyond baseline occurring during hemodialysis. Dialysis was completed, feeling well she took a nap but awoke with persistent weakness prompting evaluation in the emergency room. She admits some palpitations, denies recent change in medications, CT head and blood pressure is unremarkable. Her weakness remains and she is referred to the hospitalist for admission. Past Medical History Cardiac Medical History: Reports: Atrial Fibrillation - Paroxysmal, anticoagulation discontinued due to GI bleed episodes, Coronary Artery Disease, Myocardial Infarction - [place] X1, STENT PLACED 2000, Hyperlipidema, Hypertension - Pt has hypotension at this time Denies: Congestive Heart Failure Pulmonary Medical History: Reports: Chronic Obstructive Pulmonary Disease (COPD) - ON 3 L O2 NC CONTINUOUS, Sleep Apnea EENT Medical History: Reports: Eyes Neurological Medical History: Denies: Seizures Endocrine Medical History: Reports: Hypothyroidism Denies: Diabetes Mellitus Type 2 Renal/ Medical History: Reports: End Stage Renal Disease Malignancy Medical History: Reports: Breast Cancer - Status post mastectomy GI Medical History: Musculoskeltal Medical History: Psychiatric Medical History: Denies: Depression Hematology: Reports: Anemia - Secondary to end-stage kidney disease Denies: Sickle Cell Disease Past Surgical History Past Surgical History: Reports: Appendectomy, Cardiac Catheterization, Cholecystectomy, Coronary Stent - August 2014, Mastectomy, Tubal Ligation, Vascular Surgery - PermCath placement for dialysis with subsequent AVF for dialysis, Other - AV fistula formation for hemodialysis Denies: Amputation Social History Information Source: Patient Smoking Status: Former Smoker Electronic Cigarette use?: No Frequency of Alcohol Use: None Hx Recreational Drug Use: No Drugs: None Hx Prescription Drug Abuse: No - Advance Directive Resuscitation Status: Full Code Family History Family History: Reviewed & Not Pertinent, CAD, Other Parental Family History Reviewed: Yes Children Family History Reviewed: Yes Sibling(s) Family History Reviewed.: Yes Medication/Allergy Home Medications: Albuterol Sulfate [Proair Hfa Inhalation Aerosol 8.5 gm Mdi] 2 puff IH Q3 06/09/19 Aspirin [Aspirin 81 mg Chewable Tablet] 81 mg PO QAM 06/09/19 Cholecalciferol (Vitamin D3) [Vitamin D3 1000 Unit Tablet] 1,000 unit PO QAM 06/09/19 Epoetin Elia-Epbx [Retacrit 3,000 Unit/ml Vial (Renal)] 2 ml IV MOWE@1000 06/09/19 Fluticasone/Salmeterol [Advair 250-50 Diskus 14 Dose/Diskus] 1 inh IH Q12 06/09/19 Furosemide [Lasix 20 mg Tablet] 80 mg PO MO@0800 06/09/19 Levothyroxine Sodium [Synthroid 0.075 mg Tablet] 0.075 mg PO Q6AM 06/09/19 Liothyronine Sodium [Cytomel] 5 mcg PO QAM 06/09/19 Methocarbamol [Robaxin 500 mg Tablet] 750 mg PO QAM 06/09/19 Metoprolol Succinate [Toprol Xl 50 mg Tab.sr] 50 mg PO QPM 06/09/19 Midodrine HCl [Proamatine 5 Mg Tablet] 5 mg PO ASDIR PRN 06/09/19 Nitroglycerin [Nitrostat 0.4 mg (1/150 Gr) Tabs 25/Bottle] 1 tab SL Q5MP PRN 06/09/19 Omeprazole 40 mg PO QAM 06/09/19 Ondansetron HCl [Zofran 4 mg Tablet] 4 mg PO ASDIR PRN 06/09/19 Patiromer Calcium Sorbitex [Veltassa] 8.4 gm PO SUTUTHSA@1000 06/09/19 Rosuvastatin Calcium [Crestor 10 mg Tablet] 10 mg PO QPM 06/09/19 Sucroferric Oxyhydroxide [Velphoro] 500 mg PO AC 06/09/19 Tiotropium [place] [Spiriva Handihaler 5 Cap/Kit (18 Mcg/Cap)] 1 cap IH DAILY 06/09/19 Allergies/Adverse Reactions: Sulfa (Sulfonamide Antibiotics) Allergy (Severe, Verified 03/29/19 09:38) unsure pregabalin [From Lyrica] Adverse Reaction (Severe, Verified 03/29/19 09:38) irritable,weight gain Review of Systems Constitutional: ABSENT: chills, fever(s), headache(s), weight gain, weight loss Eyes: ABSENT: visual disturbances Ears: ABSENT: hearing changes Cardiovascular: ABSENT: chest pain, dyspnea on exertion, edema, orthropnea, palpitations Respiratory: ABSENT: cough, hemoptysis Gastrointestinal: ABSENT: abdominal pain, constipation, diarrhea, hematemesis, hematochezia, nausea, vomiting Genitourinary: ABSENT: dysuria, hematuria Musculoskeletal: ABSENT: joint swelling Integumentary: ABSENT: rash, wounds Neurological: ABSENT: abnormal gait, abnormal speech, confusion, dizziness, focal weakness, syncope Psychiatric: ABSENT: anxiety, depression, homidical ideation, suicidal ideation Endocrine: ABSENT: cold intolerance, heat intolerance, polydipsia, polyuria Hematologic/Lymphatic: ABSENT: easy bleeding, easy bruising Physical Exam Vital Signs: Temp Pulse Resp BP Pulse Ox 97.9 F 78 20 148/65 H 94 06/10/19 01:30 06/10/19 04:00 06/10/19 04:00 06/10/19 04:00 06/10/19 04:00 Intake & Output 06/08/19 06/09/19 06/10/19 11:59 11:59 11:59 Weight 76.1 kg General appearance: PRESENT: no acute distress, well-developed, well-nourished Head exam: PRESENT: atraumatic, normocephalic Eye exam: PRESENT: conjunctiva pink, EOMI, PERRLA. ABSENT: scleral icterus Ear exam: PRESENT: normal external ear exam Mouth exam: PRESENT: moist, tongue midline Neck exam: ABSENT: carotid bruit, JVD, lymphadenopathy, thyromegaly Respiratory exam: PRESENT: clear to auscultation [place], prolonged expiratory phas, symmetrical. ABSENT: rales, rhonchi, wheezes Cardiovascular exam: PRESENT: RRR. ABSENT: diastolic murmur, rubs, systolic murmur Pulses: PRESENT: normal dorsalis pedis pul Vascular exam: PRESENT: normal capillary refill GI/Abdominal exam: PRESENT: normal bowel sounds, soft. ABSENT: distended, guarding, mass, organolmegaly, rebound, tenderness Rectal exam: PRESENT: deferred Extremities exam: PRESENT: full ROM, +1 edema. ABSENT: calf tenderness, clubbing, pedal edema Musculoskeletal exam: PRESENT: full ROM, other - 4 out of 5 weakness to the left extremities.. ABSENT: tenderness Neurological exam: PRESENT: alert, awake, oriented to person, oriented to place, oriented to time, oriented to situation, CN II-XII grossly intact. ABSENT: m otor sensory deficit Psychiatric exam: PRESENT: appropriate affect, normal mood. ABSENT: homicidal ideation, suicidal ideation Skin exam: PRESENT: dry, intact, warm. ABSENT: cyanosis, rash Results Laboratory Results: 06/09/19 19:13 06/09/19 19:13 06/09/19 06/09/19 06/09/19 19:13 19:13 20:37 WBC 6.1 RBC 3.48 L Hgb 11.1 L Hct 32.3 L MCV 93 MCH 31.9 MCHC 34.4 RDW 13.1 Plt Count 182 Seg Neutrophils % 68.8 Sodium 141.8 Potassium 3.7 Chloride 103 Carbon Dioxide 33 H Anion Gap 6 BUN 12 Creatinine 2.21 H Est GFR ( Amer) 26 L Glucose 88 Calcium 9.3 Total Bilirubin 0.6 AST 21 Alkaline Phosphatase 84 Total Protein 6.4 Albumin 3.6 Triglycerides Cholesterol LDL Cholesterol Direct VLDL Cholesterol HDL Cholesterol Urine Color STRAW Urine Appearance CLEAR Urine pH 9.0 Ur Specific [place] 1.004 Urine Protein 100 H Urine Glucose (UA) NEGATIVE Urine Ketones NEGATIVE Urine Blood NEGATIVE Urine Nitrite NEGATIVE Ur Leukocyte Esterase NEGATIVE Urine WBC (Auto) 0 Urine RBC (Auto) 2 06/10/19 04:14 WBC RBC Hgb Hct MCV MCH MCHC RDW Plt Count Seg Neutrophils % Sodium Potassium Chloride Carbon Dioxide Anion Gap BUN Creatinine Est GFR ( Amer) Glucose Calcium Total Bilirubin AST Alkaline Phosphatase Total Protein Albumin Triglycerides 50 Cholesterol 110.16 LDL Cholesterol Direct 39 VLDL Cholesterol 10.0 HDL Cholesterol 53 Urine Color Urine Appearance Urine pH Ur Specific [place] Urine Protein Urine Glucose (UA) Urine Ketones Urine Blood Urine Nitrite Ur Leukocyte Esterase Urine WBC (Auto) Urine RBC (Auto) 06/09/19 06/09/19 19:13 19:13 Creatine Kinase 37 CK-MB (CK-2) 0.65 Troponin I < 0.012 Impressions: Chest X-Ray 06/09/19 17:27 IMPRESSION: Borderline cardiomegaly without pulmonary edema. Chronic lung changes. Head CT 06/09/19 17:27 IMPRESSION: Chronic microvascular ischemia with no acute intracranial imaging findings. EVIDENCE OF ACUTE STROKE: NO. Brain MRI with MRA 06/09/19 19:34 IMPRESSION: 1. Acute infarct in the right hemipons. 2. Chronic microvascular ischemic disease. 3. Sequelae of old tiny petechial hemorrhages versus amyloid throughout the brain. 4. Unremarkable MR angiogram of the head. Head MRI 06/09/19 19:34 IMPRESSION: 1. Acute infarct in the right hemipons. 2. Chronic microvascular ischemic disease. 3. Sequelae of old tiny petechial hemorrhages versus amyloid throughout the brain. 4. Unremarkable MR angiogram of the head. Assessment and Plan - Diagnosis (1) Acute CVA (cerebrovascular accident) Is this a current diagnosis for this admission?: Yes Plan: CVA care set deployed, aspirin, Plavix, supplemental oxygen, PT ordered, follow- up carotid Doppler and MRI (2) End-stage renal disease on hemodialysis Is this a current diagnosis for this admission?: Yes Plan: Compensated, nephrology consulted for CKD (3) COPD (chronic obstructive pulmonary disease) Qualifiers: Is this a current diagnosis for this admission?: Yes Plan: Incentive spirometry, albuterol and Atrovent. - Time Time Spent with patient: 25-34 minutes - Inpatient Certification Medical Necessity: Need Close Monitoring Due to Risk of Patient Decompensation
[2019-06-10] MEDS: HEPARIN SOD (PORCINE) 5,000 UNIT/ML 1 ML VIAL SUBCUT SCH ×3 (05:42→21:25)
[2019-06-10] MEDS: ASPIRIN 300 MG SUPP, RECTAL PR SCH (10:40)
--- NOTE | 2019-06-10 14:28 | RADIOLOGY REPORT (SQ) ---
EXAM DESCRIPTION: CAROTID DOPPLER COMPLETED DATE/TIME: 06/10/2019 1:57 pm REASON FOR STUDY: Left sided weakness COMPARISON: 02/18/2019 TECHNIQUE: Grayscale ultrasound, Doppler velocity and spectra, and color Doppler images acquired of the extra-cranial carotid and vertebral arteries. Images stored on PACS. LIMITATIONS: None. FINDINGS: RIGHT CAROTID CCA Velocities: Within normal limits. ICA Velocities Peak systolic 136 cm/s. End diastolic 18 cm/s. Proximal ICA/CCA peak systolic ratio 1.06. Discrete plaques are present in the common carotid, carotid bulb, and proximal ICA. LEFT CAROTID CCA Velocities: Within normal limits. ICA Velocities Peak systolic 142 cm/s. End diastolic 23 cm/s. Proximal ICA/CCA peak systolic ratio 1.37. Plaques are present in the CCA, bulb, and proximal ICA. VERTEBRAL ARTERIES: Retrograde flow on the right vertebral artery. SUBCLAVIAN ARTERIES: No finding. OTHER: No other significant finding. IMPRESSION: Atherosclerotic changes with no hemodynamically significant lesion. Retrograde flow in the right vertebral artery. COMMENT: Quality ID #[id number]: Velocity criteria are extrapolated from the diameter data as defined by t he Society of Radiologists in Ultrasound Consensus Conference. Radiology 2003: 229; 340-346. TECHNICAL DOCUMENTATION: JOB ID: [id number] [employer]- All Rights Reserved Reading location - IP/workstation name: [email or web address]
--- NOTE | 2019-06-10 15:53 | PDOC PROGRESS REPORT ---
Subjective Progress Note for:: 06/10/19 Subjective:: No adverse events overnight. No new complaints. Vital signs been stable. She was evaluated by speech therapy who recommended a modified diet. She says she has even more trouble with her left side than usual. Reason For Visit: CVA ESRD Physical Exam Vital Signs: Temp Pulse Resp BP Pulse Ox 97.3 F 72 16 138/66 H 98 06/10/19 11:22 06/10/19 14:00 06/10/19 12:00 06/10/19 12:00 06/10/19 12:00 Intake & Output 06/09/19 06/10/19 06/11/19 06:59 06:59 06:59 Intake Total 100 477 Balance 100 477 Weight 76.1 kg General appearance: PRESENT: no acute distress, cooperative, disheveled, obese Respiratory exam: PRESENT: clear to auscultation [place], symmetrical, unlabored. ABSENT: accessory muscle use, chest wall tenderness, crackles, prolonged expiratory phas, rhonchi, tachypnea, wheezes Cardiovascular exam: PRESENT: RRR, +S1, +S2 Pulses: PRESENT: normal carotid pulses Vascular exam: PRESENT: normal capillary refill GI/Abdominal exam: PRESENT: normal bowel sounds, soft. ABSENT: distended, guarding, rebound, tenderness Extremities exam: ABSENT: clubbing, pedal edema Musculoskeletal exam: PRESENT: normal inspection. ABSENT: deformity Neurological exam: PRESENT: alert, awake, oriented to person, oriented to place, oriented to situation Psychiatric exam: PRESENT: flat affect Skin exam: PRESENT: dry, warm Results Laboratory Results: 06/09/19 19:13 06/09/19 19:13 06/09/19 06/09/19 06/09/19 19:13 19:13 20:37 WBC 6.1 RBC 3.48 L Hgb 11.1 L Hct 32.3 L MCV 93 MCH 31.9 MCHC 34.4 RDW 13.1 Plt Count 182 Seg Neutrophils % 68.8 Sodium 141.8 Potassium 3.7 Chloride 103 Carbon Dioxide 33 H Anion Gap 6 BUN 12 Creatinine 2.21 H Est GFR ( Amer) 26 L Glucose 88 Calcium 9.3 Total Bilirubin 0.6 AST 21 Alkaline Phosphatase 84 Total Protein 6.4 Albumin 3.6 Triglycerides Cholesterol LDL Cholesterol Direct VLDL Cholesterol HDL Cholesterol Urine Color STRAW Urine Appearance CLEAR Urine pH 9.0 Ur Specific [place] 1.004 Urine Protein 100 H Urine Glucose (UA) NEGATIVE Urine Ketones NEGATIVE Urine Blood NEGATIVE Urine Nitrite NEGATIVE Ur Leukocyte Esterase NEGATIVE Urine WBC (Auto) 0 Urine RBC (Auto) 2 06/10/19 04:14 WBC RBC Hgb Hct MCV MCH MCHC RDW Plt Count Seg Neutrophils % Sodium Potassium Chloride Carbon Dioxide Anion Gap BUN Creatinine Est GFR ( Amer) Glucose Calcium Total Bilirubin AST Alkaline Phosphatase Total Protein Albumin Triglycerides 50 Cholesterol 110.16 LDL Cholesterol Direct 39 VLDL Cholesterol 10.0 HDL Cholesterol 53 Urine Color Urine Appearance Urine pH Ur Specific [place] Urine Protein Urine Glucose (UA) Urine Ketones Urine Blood Urine Nitrite Ur Leukocyte Esterase Urine WBC (Auto) Urine RBC (Auto) 06/09/19 06/09/19 19:13 19:13 Creatine Kinase 37 CK-MB (CK-2) 0.65 Troponin I < 0.012 Impressions: Chest X-Ray 06/09/19 17:27 IMPRESSION: Borderline cardiomegaly without pulmonary edema. Chronic lung changes. Head CT 06/09/19 17:27 IMPRESSION: Chronic microvascular ischemia with no acute intracranial imaging findings. EVIDENCE OF ACUTE STROKE: NO. Brain MRI with MRA 06/09/19 19:34 IMPRESSION: 1. Acute infarct in the right hemipons. 2. Chronic microvascular ischemic disease. 3. Sequelae of old tiny petechial hemorrhages versus amyloid throughout the brain. 4. Unremarkable MR angiogram of the head. Head MRI 06/09/19 19:34 IMPRESSION: 1. Acute infarct in the right hemipons. 2. Chronic microvascular ischemic disease. 3. Sequelae of old tiny petechial hemorrhages versus amyloid throughout the brain. 4. Unremarkable MR angiogram of the head. Carotid Doppler Study 06/10/19 00:00 IMPRESSION: Atherosclerotic changes with no hemodynamically significant lesion. Retrograde flow in the right vertebral artery. Assessment and Plan - Diagnosis (1) Acute CVA (cerebrovascular accident) Is this a current diagnosis for this admission?: Yes Plan: MRI was positive for pontine stroke. She on aspirin and a statin. Speech therapy recommendations are noted. She will need to be placed in a skilled nurs ing facility for rehab. She may be a candidate for acute rehab. (2) End-stage renal disease on hemodialysis Is this a current diagnosis for this admission?: Yes Plan: Nephrology is been consulted by hemodialysis (3) HTN (hypertension) Qualifiers: Hypertension type: renovascular hypertension Qualified Code(s): I15.0 - Renovascular hypertension Is this a current diagnosis for this admission?: Yes Plan: Continue home medications (4) Hyperlipidemia Qualifiers: Hyperlipidemia type: mixed hyperlipidemia Qualified Code(s): E78.2 - Mixed hyperlipidemia Is this a current diagnosis for this admission?: Yes Plan: Continue statin (5) Hypertension Qualifiers: Hypertension type: essential hypertension Qualified Code(s): I10 - Essential (primary) hypertension Is this a current diagnosis for this admission?: Yes Plan: Continue home medications - Time Time Spent with patient: 15-24 minutes
--- NOTE | 2019-06-10 16:36 | PDOC CONSULTATION ---
Consultation-Blank Consultation: Physical Medicine & Rehabilitation Progress Note 79-year-old right-handed female with past medical history including CVA with residual left-sided weakness and end-stage renal disease on hemodialysis admitted to [facility] on 06/09/2019 after presenting with wor sening left-sided weakness and being found to have an acute infarct in the right trena-efren on MRI of the brain. Further stroke workup demonstrates atherosclerotic changes with no hemodynamically significant lesion and retrograde flow in the right vertebral artery on carotid doppler, hemoglobin A1c of 5.2%, total cholesterol of 110, and LDL of 39. The patient is felt not to require an echocardiogram given the location of the CVA and low probability that this is due to a cardioembolic event. She did have an echocardiogram in January 2018 with normal LVEF and no cardioembolic source identified at that time. She has been transitioned to high-dose aspirin and statin for secondary stroke prophylaxis. She was evaluated by acute care physical therapy, occupational therapy, and speech therapy, and she currently requires minimum assistance for bed mobility, minimum assistance for oao-ed-dahon transfers, maximum assistance for ambulation of 1 step with a rolling walker, moderate assistance for upper and lower body dressing, and a regular solids with thin liquids diet with small bites and sips. She lives with her in a 1 level home with ramp to enter, and she does not use any assistive devices at baseline. Based on the patient's diagnosis, medical co-morbidities, and current functional status, she is a good candidate for acute inpatient rehabilitation as she would benefit from 3 hours per day of intensive therapies in at least 2 disciplines under the close medical supervision of a physician. The patient is expected to make significant gains in a relatively short period of time to the point that she can safely be discharged home with supervision and assistance from family. Barring any unforeseen events or complications, there is a plan to admit the patient to [facility] acute inpatient rehabilitation in [place] on 06/11/2019. The patient is on a Friday, Friday, Friday hemodialysis schedule at baseline, and we will transition her to a Friday, , Friday dialysis schedule to maximize therapy time during rehabilitation. Transport has been scheduled for pickup at 10 AM on 06/11/2019, and nursing should call report to [phone] prior to the patients discharge.
[2019-06-10] MEDS: ATORVASTATIN CALCIUM 80 MG TABLET PO SCH (21:25)
[2019-06-11] MEDS: HEPARIN SOD (PORCINE) 5,000 UNIT/ML 1 ML VIAL SUBCUT SCH (06:06)
[2019-06-11 08:09] VITALS: BP 138/82
--- NOTE | 2019-06-11 08:35 | PDOC TRANSFER SUMMARY ---
General Admission Date/PCP: 06/09/19 20:21 GIANNA BOURGEOIS MD Admission Date: 06/09/19 Transfer Date: 06/11/19 Accepting Facility: Other ([facility]) - [facility] rehab Resuscitation Status: Full Code - Transfer Diagnosis (1) Acute CVA (cerebrovascular accident) Is this a current diagnosis for this admission?: Yes Diagnosis Summary: History of prior stroke with recurrent stroke in the left efren. Was already on risk factor modifying medications. (2) End-stage renal disease on hemodialysis Is this a current diagnosis for this admission?: Yes Diagnosis Summary: Nephrology was consulted for her maintenance hemodialysis, which was Friday, Friday, and Friday. (3) HTN (hypertension) Is this a current diagnosis for this admission?: Yes Diagnosis Summary: Fair control on her home medications (4) Hyperlipidemia Is this a current diagnosis for this admission?: Yes Diagnosis Summary: On Crestor at home (5) COPD (chronic obstructive pulmonary disease) Is this a current diagnosis for this admission?: Yes Diagnosis Summary: Not exacerbated, controlled with her home medications - Transfer Medications Home Medications: Albuterol Sulfate [Proair Hfa Inhalation Aerosol 8.5 gm Mdi] 2 puff IH Q3 06/09/19 Aspirin [Aspirin 81 mg Chewable Tablet] 81 mg PO QAM 06/09/19 Cholecalciferol (Vitamin D3) [Vitamin D3 1000 Unit Tablet] 1,000 unit PO QAM 06/09/19 Epoetin Elia-Epbx [Retacrit 3,000 Unit/ml Vial (Renal)] 2 ml IV MOWE@1000 06/09/19 Fluticasone/Salmeterol [Advair 250-50 Diskus 14 Dose/Diskus] 1 inh IH Q12 06/09/19 Furosemide [Lasix 20 mg Tablet] 80 mg PO MO@0800 06/09/19 Levothyroxine Sodium [Synthroid 0.075 mg Tablet] 0.075 mg PO Q6AM 06/09/19 Liothyronine Sodium [Cytomel] 5 mcg PO QAM 06/09/19 Methocarbamol [Robaxin 500 mg Tablet] 750 mg PO QAM 06/09/19 Metoprolol Succinate [Toprol Xl 50 mg Tab.sr] 50 mg PO QPM 06/09/19 Midodrine HCl [Proamatine 5 Mg Tablet] 5 mg PO ASDIR PRN 06/09/19 Nitroglycerin [Nitrostat 0.4 mg (1/150 Gr) Tabs 25/Bottle] 1 tab SL Q5MP PRN 06/09/19 Omeprazole 40 mg PO QAM 06/09/19 Ondansetron HCl [Zofran 4 mg Tablet] 4 mg PO ASDIR PRN 06/09/19 Patiromer Calcium Sorbitex [Veltassa] 8.4 gm PO SUTUTHSA@1000 06/09/19 Rosuvastatin Calcium [Crestor 10 mg Tablet] 10 mg PO QPM 06/09/19 Sucroferric Oxyhydroxide [Velphoro] 500 mg PO AC 06/09/19 Tiotropium [place] [Spiriva Handihaler 5 Cap/Kit (18 Mcg/Cap)] 1 cap IH DAILY 06/09/19 Transfer Medications: Current Medications Acetaminophen (Tylenol 325 Mg Tablet) 650 mg PO Q4HP PRN PRN Reason: Temp greater than 101F Stop: 07/09/19 20:10 Acetaminophen (Tylenol 650 Mg Supp) 650 mg RI Q4HP PRN PRN Reason: Temp greater than 101F Stop: 07/09/19 20:10 Aspirin (Aspirin 300 Mg Rectal Supp) 300 mg RI DAILY [facility] Stop: 07/10/19 09:59 Last Admin: 06/10/19 10:40 Dose: Not Given Documented by: Atorvastatin Calcium (Lipitor 80 Mg Tablet) 80 mg PO QHS [facility] Stop: 07/09/19 21:59 Last Admin: 06/10/19 21:25 Dose: 80 mg Documented by: Docusate Sodium (Colace 100 Mg Capsule) 100 mg PO BIDP PRN PRN Reason: FOR CONSTIPATION Stop: 07/09/19 20:10 Heparin Sodium (Porcine) (Heparin Inj 5,000 Units/Ml 1 Ml Vial) 5,000 unit SUBCUT Q8 [facility] Stop: 07/09/19 21:59 Last Admin: 06/11/19 06:06 Dose: 5,000 unit Documented by: Hydralazine HCl (Apresoline Inj/Pf 20 Mg/1 Ml Sdv) 10 mg IV Q6HP PRN PRN Reason: Sbp>200 Stop: 07/09/19 20:14 Magnesium Hydroxide (Milk Of Magnesia 30 Ml Udcup) 30 ml PO HSP PRN PRN Reason: FOR CONSTIPATION Stop: 07/09/19 20:10 Sodium Chloride (Saline Flush 2.5 Ml Monoject Prefil Syrin) 2.5 ml IV Q8 STEPHANIE Stop: 07/09/19 21:59 Last Admin: 06/11/19 06:07 Dose: 2.5 ml Documented by: - Allergies Allergies/Adverse Reactions: Sulfa (Sulfonamide Antibiotics) Allergy (Severe, Verified 03/29/19 09:38) unsure pregabalin [From Lyrica] Adverse Reaction (Severe, Verified 03/29/19 09:38) irritable,weight gain - Diet/Activity Discharge Diet: Cardiac Discharge Activity: Supervised Activity Hospital Course Hospital Course: Per H&P: "EZRA SUERO is a 79 year old female with a past medical history of 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 fib without anticoagulation secondary to GI bleed, coronary artery disease with stenting, status post breast cancer with mastectomy, obstructive sleep apnea on CPAP and COPD. She presents 5 hours after the onset of left-sided weakness beyond baseline occurring during hemodialysis. Dialysis was completed, feeling well she took a nap but awoke with persistent weakness prompting evaluation in the emergency room. She admits some palpitations, denies recent change in medications, CT head and blood pressure is unremarkable. Her weakness remains and she is referred to the hospitalist for admission." MRI revealed that she had a right sided pontine stroke, evidence of small petechial hemorrhages versus amyloid, abnormal MRA of the [place], and a normal carotid Doppler ultrasound. She had some left-sided functional deficits, which she said she had had from a previous stroke but were worse than usual. She is on a modified diet per speech therapy. Her medical risk factors have been modified. She was seen and evaluated by physical therapy and was deemed to be a potential candidate for acute rehab. A consultation to acute rehab was placed and she was accepted. She is being transferred to [facility] acute rehab in stable condition. Physical Exam Vital Signs: Temp Pulse Resp BP Pulse Ox 98.3 F 73 22 H 138/82 H 95 06/11/19 07:54 06/11/19 08:00 06/11/19 08:00 06/11/19 08:00 06/11/19 08:00 Intake & Output 06/10/19 06/11/19 06/12/19 06:59 06:59 06:59 Intake Total 100 937 Balance 100 937 Weight 76.1 kg 76.7 kg General appearance: PRESENT: no acute distress, cooperative, disheveled, obese Respiratory exam: PRESENT: clear to auscultation [place], symmetrical, unlabored. ABSENT: accessory muscle use, chest wall tenderness, crackles, prolonged ex piratory phas, rhonchi, tachypnea, wheezes Cardiovascular exam: PRESENT: RRR, +S1, +S2 Pulses: PRESENT: normal carotid pulses Vascular exam: PRESENT: normal capillary refill GI/Abdominal exam: PRESENT: normal bowel sounds, soft. ABSENT: distended, guarding, rebound, tenderness Extremities exam: ABSENT: clubbing, pedal edema Musculoskeletal exam: PRESENT: normal inspection. ABSENT: deformity Neurological exam: PRESENT: alert, awake, oriented to person, oriented to place, oriented to situation Psychiatric exam: PRESENT: flat affect Skin exam: PRESENT: dry, warm Results Laboratory Results: 06/09/19 19:13 06/09/19 19:13 06/09/19 06/09/19 19:13 19:13 Creatine Kinase 37 CK-MB (CK-2) 0.65 Troponin I < 0.012 Impressions: Chest X-Ray 06/09/19 17:27 IMPRESSION: Borderline cardiomegaly without pulmonary edema. Chronic lung changes. Head CT 06/09/19 17:27 IMPRESSION: Chronic microvascular ischemia with no acute intracranial imaging findings. EVIDENCE OF ACUTE STROKE: NO. Brain MRI with MRA 06/09/19 19:34 IMPRESSION: 1. Acute infarct in the right hemipons. 2. Chronic microvascular ischemic disease. 3. Sequelae of old tiny petechial hemorrhages versus amyloid throughout the brain. 4. Unremarkable MR angiogram of the head. Head MRI 06/09/19 19:34 IMPRESSION: 1. Acute infarct in the right hemipons. 2. Chronic microvascular ischemic disease. 3. Sequelae of old tiny petechial hemorrhages versus amyloid throughout the brain. 4. Unremarkable MR angiogram of the head. Carotid Doppler Study 06/10/19 00:00 IMPRESSION: Atherosclerotic changes with no hemodynamically significant lesion. Retrograde flow in the right vertebral artery. Plan Time Spent: Greater than 30 Minutes
[2019-06-11] MEDS: ASPIRIN 300 MG SUPP, RECTAL PR SCH (09:37)
--- NOTE | 2019-06-11 11:27 | PDOC DISCHARGE SUMMARY ---
Impression - Admit/DC Date/PCP Admission Date/Primary Care Provider: 06/09/19 20:21 GIANNA BOURGEOIS MD Discharge Date: 06/11/19 - Discharge Diagnosis (1) Acute CVA (cerebrovascular accident) Is this a current diagnosis for this admission?: Yes (2) End-stage renal disease on hemodialysis Is this a current diagnosis for this admission?: Yes (3) HTN (hypertension) Is this a current diagnosis for this admission?: Yes (4) Hyperlipidemia Is this a current diagnosis for this admission?: Yes (5) COPD (chronic obstructive pulmonary disease) Is this a current diagnosis for this admission?: Yes - Additional Information Resuscitation Status: Full Code Discharge Diet: Cardiac Discharge Activity: Supervised Activity Referrals: GIANNA BOURGEOIS MD [Primary Care Provider] - Follow up as needed Home Medications: Albuterol Sulfate [Proair Hfa Inhalation Aerosol 8.5 gm Mdi] 2 puff IH Q3 06/09/19 Aspirin [Aspirin 81 mg Chewable Tablet] 81 mg PO QAM 06/09/19 Cholecalciferol (Vitamin D3) [Vitamin D3 1000 Unit Tablet] 1,000 unit PO QAM 06/09/19 Epoetin Elia-Epbx [Retacrit 3,000 Unit/ml Vial (Renal)] 2 ml IV MOWE@1000 06/09/19 Fluticasone/Salmeterol [Advair 250-50 Diskus 14 Dose/Diskus] 1 inh IH Q12 06/09/19 Furosemide [Lasix 20 mg Tablet] 80 mg PO MO@0800 06/09/19 Levothyroxine Sodium [Synthroid 0.075 mg Tablet] 0.075 mg PO Q6AM 06/09/19 Liothyronine Sodium [Cytomel] 5 mcg PO QAM 06/09/19 Methocarbamol [Robaxin 500 mg Tablet] 750 mg PO QAM 06/09/19 Metoprolol Succinate [Toprol Xl 50 mg Tab.sr] 50 mg PO QPM 06/09/19 Midodrine HCl [Proamatine 5 Mg Tablet] 5 mg PO ASDIR PRN 06/09/19 Nitroglycerin [Nitrostat 0.4 mg (1/150 Gr) Tabs 25/Bottle] 1 tab SL Q5MP PRN 06/09/19 Omeprazole 40 mg PO QAM 06/09/19 Ondansetron HCl [Zofran 4 mg Tablet] 4 mg PO ASDIR PRN 06/09/19 Patiromer Calcium Sorbitex [Veltassa] 8.4 gm PO SUTUTHSA@1000 06/09/19 Rosuvastatin Calcium [Crestor 10 mg Tablet] 10 mg PO QPM 06/09/19 Sucroferric Oxyhydroxide [Velphoro] 500 mg PO AC 06/09/19 Tiotropium Kulm [Spiriva Handihaler 5 Cap/Kit (18 Mcg/Cap)] 1 cap IH DAILY 06/09/19 History of Present Illiness History of Present Illness: EZRA SUERO is a 79 year old female with a past medical history of 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 fib without anticoagulation secondary to GI bleed, coronary artery disease with stenting, status post breast cancer with mastectomy, obstructive sleep apnea on CPAP and COPD. She presents 5 hours after the onset of left-sided weakness beyond baseline occurring during hemodialysis. Dialysis was completed, feeling well she took a nap but awoke with persistent weakness prompting evaluation in the emergency room. She admits some palpitations, denies recent change in medications, CT head and blood pressure is unremarkable. Her weakness remains and she is referred to the hospitalist for admission. Hospital Course Hospital Course: MRI revealed that she had a right sided pontine stroke, evidence of small petechial hemorrhages versus amyloid, abnormal MRA of the [place], and a normal carotid Doppler ultrasound. She had some left-sided functional def icits, which she said she had had from a previous stroke but were worse than usual. She is on a modified diet per speech therapy. Her medical risk factors have been modified. She was seen and evaluated by physical therapy and was deemed to be a potential candidate for acute rehab. A consultation to acute rehab was placed and she was accepted. [facility] in stable condition. Physical Exam Vital Signs: Temp Pulse Resp BP Pulse Ox 98.3 F 73 22 H 138/82 H 95 06/11/19 07:54 06/11/19 08:00 06/11/19 08:00 06/11/19 08:00 06/11/19 08:00 Intake & Output 06/10/19 06/11/19 06/12/19 06:59 06:59 06:59 Intake Total 100 937 Balance 100 937 Weight 76.1 kg 76.7 kg General appearance: PRESENT: no acute distress, cooperative, disheveled, obese Respiratory exam: PRESENT: clear to auscultation [place], symmetrical, unlabored. ABSENT: accessory muscle use, chest wall tenderness, crackles, prolonged expiratory phas, rhonchi, tachypnea, wheezes Cardiovascular exam: PRESENT: RRR, +S1, +S2 Pulses: PRESENT: normal carotid pulses Vascular exam: PRESENT: normal capillary refill GI/Abdominal exam: PRESENT: normal bowel sounds, soft. ABSENT: distended, guarding, rebound, tenderness Extremities exam: ABSENT: clubbing, pedal edema Musculoskeletal exam: PRESENT: normal inspection. ABSENT: deformity Neurological exam: PRESENT: alert, awake, oriented to person, oriented to place, oriented to situation Psychiatric exam: PRESENT: flat affect Skin exam: PRESENT: dry, warm Results Laboratory Results: WBC 6.1 10^3/uL (4.0-10.5) 06/09/19 19:13 RBC 3.48 10^6/uL (3.72-5.28) L 06/09/19 19:13 Hgb 11.1 g/dL (12.0-15.5) L 06/09/19 19:13 Hct 32.3 % (36.0-47.0) L 06/09/19 19:13 MCV 93 fl (80-97) 06/09/19 19:13 MCH 31.9 pg (27.0-33.4) 06/09/19 19:13 MCHC 34.4 g/dL (32.0-36.0) 06/09/19 19:13 RDW 13.1 % (11.5-14.0) 06/09/19 19:13 Plt Count 182 10^3/uL (150-450) 06/09/19 19:13 Lymph % (Auto) 20.7 % (13-45) 06/09/19 19:13 [place] % (Auto) 8.0 % (3-13) 06/09/19 19:13 Eos % (Auto) 1.7 % (0-6) 06/09/19 19:13 Baso % (Auto) 0.8 % (0-2) 06/09/19 19:13 Absolute Neuts (auto) 4.2 10^3/uL (1.7-8.2) 06/09/19 19:13 Absolute Lymphs (auto) 1.3 10^3/uL (0.5-4.7) 06/09/19 19:13 Absolute Monos (auto) 0.5 10^3/uL (0.1-1.4) 06/09/19 19:13 Absolute Eos (auto) 0.1 10^3/uL (0.0-0.6) 06/09/19 19:13 Absolute Basos (auto) 0.0 10^3/uL (0.0-0.2) 06/09/19 19:13 Seg Neutrophils % 68.8 % (42-78) 06/09/19 19:13 PT 14.2 SEC (11.4-15.4) 06/09/19 19:13 INR 1.09 06/09/19 19:13 APTT 30.7 SEC (23.5-35.8) 06/09/19 19:13 Sodium 141.8 mmol/L (137-145) 06/09/19 19:13 Potassium 3.7 mmol/L (3.6-5.0) 06/09/19 19:13 Chloride 103 mmol/L (98-107) 06/09/19 19:13 Carbon Dioxide 33 mmol/L (22-30) H 06/09/19 19:13 Anion Gap 6 (5-19) 06/09/19 19:13 BUN 12 mg/dL (7-20) 06/09/19 19:13 Creatinine 2.21 mg/dL (0.52-1.25) H 06/09/19 19:13 Est GFR ( Amer) 26 (>60) L 06/09/19 19:13 Est GFR (MDRD) Non-Af 21 (>60) L 06/09/19 19:13 Glucose 88 mg/dL (75-110) 06/09/19 19:13 Hemoglobin A1c % 5.2 % (4.7-6.0) 06/10/19 04:14 Calcium 9.3 mg/dL (8.4-10.2) 06/09/19 19:13 Total Bilirubin 0.6 mg/dL (0.2-1.3) 06/09/19 19:13 Direct Bilirubin 0.2 mg/dL (0.0-0.4) 06/09/19 19:13 Neonat Total Bilirubin Not Reportable 06/09/19 19:13 Neonat Direct Bilirubin Not Reportable 06/09/19 19:13 Neonat Indirect Bili Not Reportable 06/09/19 19:13 AST 21 U/L (14-36) 06/09/19 19:13 ALT 11 U/L (<35) 06/09/19 19:13 Alkaline Phosphatase 84 U/L (38-126) 06/09/19 19:13 Creatine Kinase 37 U/L (30-135) 06/09/19 19:13 CK-MB (CK-2) 0.65 ng/mL (<4.55) 06/09/19 19:13 Troponin I < 0.012 ng/mL 06/09/19 19:13 Total Protein 6.4 g/dL (6.3-8.2) 06/09/19 19:13 Albumin 3.6 g/dL (3.5-5.0) 06/09/19 19:13 Triglycerides 50 mg/dL (<150) 06/10/19 04:14 Cholesterol 110.16 mg/dL (0-200) 06/10/19 04:14 LDL Cholesterol Direct 39 mg/dL (<100) 06/10/19 04:14 VLDL Cholesterol 10.0 mg/dL (10-31) 06/10/19 04:14 HDL Cholesterol 53 mg/dL (>40) 06/10/19 04:14 Urine Color STRAW 06/09/19 20:37 Urine Appearance CLEAR 06/09/19 20:37 Urine pH 9.0 (5.0-9.0) 06/09/19 20:37 Ur Specific [place] 1.004 06/09/19 20:37 Urine Protein 100 mg/dL (NEGATIVE) H 06/09/19 20:37 Urine Glucose (UA) NEGATIVE mg/dL (NEGATIVE) 06/09/19 20:37 Urine Ketones NEGATIVE mg/dL (NEGATIVE) 06/09/19 20:37 Urine Blood NEGATIVE (NEGATIVE) 06/09/19 20:37 Urine Nitrite NEGATIVE (NEGATIVE) 06/09/19 20:37 Urine Bilirubin NEGATIVE (NEGATIVE) 06/09/19 20:37 Urine Urobilinogen NEGATIVE mg/dL (<2.0) 06/09/19 20:37 Ur Leukocyte Esterase NEGATIVE (NEGATIVE) 06/09/19 20:37 Urine WBC (Auto) 0 /HPF 06/09/19 20:37 Urine RBC (Auto) 2 /HPF 06/09/19 20:37 Squamous Epi Cells Auto <1 /HPF 06/09/19 20:37 Urine Mucus (Auto) RARE /LPF 06/09/19 20:37 Urine Ascorbic Acid NEGATIVE (NEGATIVE) 06/09/19 20:37 06/09/19 19:13 CK-MB (CK-2) 0.65 Troponin I < 0.012 Impressions: Chest X-Ray 06/09/19 17:27 IMPRESSION: Borderline cardiomegaly without pulmonary edema. Chronic lung changes. Head CT 06/09/19 17:27 IMPRESSION: Chronic microvascular ischemia with no acute intracranial imaging findings. EVIDENCE OF ACUTE STROKE: NO. Brain MRI with MRA 06/09/19 19:34 IMPRESSION: 1. Acute infarct in the right hemipons. 2. Chronic microvascular ischemic disease. 3. Sequelae of old tiny petechial hemorrhages versus amyloid throughout the brain. 4. Unremarkable MR angiogram of the head. Head MRI 06/09/19 19:34 IMPRESSION: 1. Acute infarct in the right hemipons. 2. Chronic microvascular ischemic disease. 3. Sequelae of old tiny petechial hemorrhages versus amyloid throughout the brain. 4. Unremarkable MR angiogram of the head. Carotid Doppler Study 06/10/19 00:00 IMPRESSION: Atherosclerotic changes with no hemodynamically significant lesion. Retrograde flow in the right vertebral artery. Plan Time Spent: Greater than 30 Minutes Stroke Is this a Stroke Patient?: Yes Stroke Pt being discharged on Anti-thrombolytic therapy?: Yes Stroke Pt being discharged on Anti-coagulation therapy?: No Reason(s) for not prescribing Anti-coagulation therapy:: Not indicated Stroke Pt being discharged on Statins?: Yes Acute Heart Failure - Is this a Heart Failure Patient?: No
== END 2019-06-11 10:02 | disposition short-term general hospital (02) | DRG 64 ==
LOC: ER 17:20 → EH 20:21 → 3N 06-10 01:53
PROVIDERS: ADMIT Internal Medicine; ATTEND Internal Medicine
PROC: 5A09357 Assistance with Respiratory Ventilation, Less than 24 Consecutive Hours, Continuous Positive Airway Pressure (ICD-10-PCS; principal; 2019-06-10)
DX: I61.3 Nontraumatic intracerebral hemorrhage in brain stem (principal); N18.6 End stage renal disease; I12.0 Hypertensive chronic kidney disease with stage 5 chronic kidney disease or end stage renal disease; G81.92 Hemiplegia, unspecified affecting left dominant side; J44.9 Chronic obstructive pulmonary disease, unspecified; E03.9 Hypothyroidism, unspecified; I48.0 Paroxysmal atrial fibrillation; G47.33 Obstructive sleep apnea (adult) (pediatric); I25.10 Atherosclerotic heart disease of native coronary artery without angina pectoris; R23.3 Spontaneous ecchymoses; D63.1 Anemia in chronic kidney disease; E78.2 Mixed hyperlipidemia; R20.0 Anesthesia of skin; R29.810 Facial weakness; E78.00 Pure hypercholesterolemia, unspecified; E11.22 Type 2 diabetes mellitus with diabetic chronic kidney disease; I25.2 Old myocardial infarction; Z99.2 Dependence on renal dialysis; Z79.899 Other long term (current) drug therapy; Z79.84 Long term (current) use of oral hypoglycemic drugs; Z95.5 Presence of coronary angioplasty implant and graft; Z85.3 Personal history of malignant neoplasm of breast; Z90.10 Acquired absence of unspecified breast and nipple; Z79.890 Hormone replacement therapy; Z88.6 Allergy status to analgesic agent; Z88.2 Allergy status to sulfonamides; Z87.891 Personal history of nicotine dependence; Z79.82 Long term (current) use of aspirin
CPT/HCPCS: 36415; 70450; 70544; 70551; 71045; 80053; 80061; 81001; 82550; 82553; 83036; 84484; 85025; 85610; 85730; 93005; 93010; 93880; 94660; 99285; J1644; J3490

== ENCOUNTER → 2019-08-05 | Outpatient (CLI) | payer MEDICARE, OTHER ==
[2019-08-05 09:52] LABS: ALBUMIN 3.5 g/dL (3.5-5.0); ALKALINE PHOSPHATASE 89 U/L (38-126); ANION GAP 7 (5-19); ASPARTATE AMINO TRANSFERASE 24 U/L (14-36); BILIRUBIN,DIRECT 0.1 mg/dL (0.0-0.4); BILIRUBIN,TOTAL 0.6 mg/dL (0.2-1.3); BLOOD UREA NITROGEN 13 mg/dL (7-20); CARBON DIOXIDE 33 mmol/L (22-30); CHLORIDE 100 mmol/L (98-107); CHOLESTEROL 118.12 mg/dL (0-200); GLUCOSE 85 mg/dL (75-110); POTASSIUM 4.1 mmol/L (3.6-5.0); TOTAL PROTEIN 6.1 g/dL (6.3-8.2); TRIGLYCERIDES 48 mg/dL (<150)
[2019-08-05 10:02] LABS: DIRECT LDL 44 mg/dL (<100)
== END ==
LOC: OD 08:52
PROVIDERS: ATTEND Internal Medicine Cardiovascular Disease
DX: E78.00 Pure hypercholesterolemia, unspecified (principal); I10 Essential (primary) hypertension; R00.2 Palpitations; Z79.899 Other long term (current) drug therapy
CPT/HCPCS: 36415; 80048; 80061; 80076; 83735

== ENCOUNTER 2019-08-08 11:52 | Inpatient (IN) | payer MEDICARE, OTHER ==
[2019-08-08] MEDS ORDERED: NORMAL SALINE 1000 ML 1,000 ML IV ONE (12:10)
--- NOTE | 2019-08-08 12:33 | RADIOLOGY REPORT (SQ) ---
EXAM DESCRIPTION: CHEST SINGLE VIEW COMPLETED DATE/TIME: 08/08/2019 12:19 pm REASON FOR STUDY: sob COMPARISON: 06/09/2019. EXAM PARAMETERS: NUMBER OF VIEWS: One view. TECHNIQUE: Single frontal radiographic view of the chest acquired. RADIATION DOSE: NA LIMITATIONS: None. FINDINGS: LUNGS AND PLEURA: Diffuse interstitial prominence. No opacities, masses or pneumothorax. No pleural effusion. MEDIASTINUM AND HILAR STRUCTURES: No masses. Contour normal. HEART AND VASCULAR STRUCTURES: Heart normal in size. Normal vasculature. BONES: No acute findings. HARDWARE: Cardiac recorder. OTHER: No other significant finding. IMPRESSION: CHRONIC INTERSTITIAL CHANGES. NO ACUTE RADIOGRAPHIC FINDING IN THE CHEST. TECHNICAL DOCUMENTATION: JOB ID: [id number] [employer]- All Rights Reserved Reading location - IP/workstation name: [email or web address]
[2019-08-08 12:41] LABS: INTERNATIONAL RATION (INR) 1.18
[2019-08-08 12:44] LABS: D-DIMER 0.98 ug/mL (0.00-0.50)
[2019-08-08 12:52] LABS: ALBUMIN 3.3 g/dL (3.5-5.0); ALKALINE PHOSPHATASE 93 U/L (38-126); ANION GAP 10 (5-19); ASPARTATE AMINO TRANSFERASE 24 U/L (14-36); BILIRUBIN,DIRECT 0.5 mg/dL (0.0-0.4); BILIRUBIN,TOTAL 0.8 mg/dL (0.2-1.3); BLOOD UREA NITROGEN 32 mg/dL (7-20); CALCIUM 8.9 mg/dL (8.4-10.2); CARBON DIOXIDE 22 mmol/L (22-30); CHLORIDE 105 mmol/L (98-107); GLUCOSE 151 mg/dL (75-110); TOTAL PROTEIN 6.2 g/dL (6.3-8.2)
[2019-08-08 13:25] LABS: ABSOLUTE EOSINOPHILS # (AUTO) 0.1 10^3/uL (0.0-0.6); ABSOLUTE LYMPHOCYTES (AUTO) 1.2 10^3/uL (0.5-4.7); ABSOLUTE MONOCYTES (AUTO) 0.5 10^3/uL (0.1-1.4); ABSOLUTE NEUT (AUTO) 5.7 10^3/uL (1.7-8.2); BASOPHILS % (AUTO) 0.5 % (0-2); EOSINOPHILS % (AUTO) 0.9 % (0-6); HEMATOCRIT 29.1 % (36.0-47.0); HEMOGLOBIN 10.1 g/dL (12.0-15.5); MEAN CORPUSCULAR HEMOGLOBIN 32.2 pg (27.0-33.4); MEAN CORPUSCULAR HGB CONC 34.9 g/dL (32.0-36.0); MEAN CORPUSCULAR VOLUME 92 fl (80-97); MONOCYTES % (AUTO) 6.8 % (3-13); PLATELET COUNT 203 10^3/uL (150-450); RED BLOOD COUNT 3.15 10^6/uL (3.72-5.28); RED CELL DISTRIBUTION WIDTH 14.6 % (11.5-14.0); SEGMENTED NEUTROPHILS % (AUTO) 75.8 % (42-78); TOTAL CELLS COUNTED % (AUTO) 100 %; WHITE BLOOD COUNT 7.6 10^3/uL (4.0-10.5)
[2019-08-08 13:35] LABS: ARTERIAL BLOOD BASE EXCESS -3.6 mmol/L; ARTERIAL BLOOD FIO2 40%; ARTERIAL BLOOD HCO3 19.8 mmol/L (20-24); ARTERIAL BLOOD O2 SATURATION 98.2 % (94-98); ARTERIAL BLOOD PCO2 29.9 mmHg (35-45); ARTERIAL BLOOD PH 7.44 (7.35-7.45); ARTERIAL BLOOD PO2 108.3 mmHg (80-100); ARTERIAL BLOOD TOTAL CO2 20.7 mmol/L (21-25)
[2019-08-08] MEDS ORDERED: MORPHINE SULFATE 10 MG/ML INJ IV ONE (16:29)
[2019-08-08] MEDS ORDERED: FUROSEMIDE INJ/PF 40 MG/4 ML SDV IV ONE (16:29)
[2019-08-08] MEDS ORDERED: NITROGLYCERIN 5 MG (0.2 MG/HR) PATCH.TD24 TD ONE (16:30)
[2019-08-08] MEDS ORDERED: PIPERACILLIN/TAZOBACTAM 4.5 GM VIAL IV ONE ×2 (16:38→18:45)
[2019-08-08] MEDS ORDERED: ONDANSETRON HCL INJ/PF 4 MG/2 ML SDV IV PRN (17:20)
[2019-08-08] MEDS ORDERED: DEXTROSE 50%-WATER 25 GM/50 ML DISP.SYRIN IV PRN ×2 (17:25)
[2019-08-08] MEDS ORDERED: GLUCAGON,HUMAN RECOMB 1 MG INJ IM PRN (17:25)
[2019-08-08] MEDS ORDERED: DEXTROSE 40% GEL 15 GM TUBE PO PRN ×2 (17:25)
--- NOTE | 2019-08-08 17:41 | ER Document Report ---
Entered by BETH BEE SCRIBE 08/08/19 1211 Acting as scribe for:EARL PHILLIPS MD ED Respiratory Problem - General Chief Complaint: Breathing Difficulty Stated Complaint: BREATHING PROBLEMS Time Seen by Provider: 08/08/19 12:03 Primary Care Provider: LOUIE EVANS MD [EMERITUS] - Follow up as needed Mode of Arrival: Medic Information source: Patient, Emergency Med Personnel Notes: This 79 year old female patient presents to the emergency department today with complaints of respiratory distress. EMS reports that family told them that she became acutely short of breath just prior to them calling today. EMS reported a lactate of 3.5 that was drawn in route here. Patient also complains of a cough, fevers, and chills. Pre-hospital intervention: 125 solumedrol, A&A x2, Cpap, 2g Magnesium, and 0.3 mg of epi. TRAVEL OUTSIDE OF THE [place] IN LAST 30 DAYS: No - Related Data Allergies/Adverse Reactions: Sulfa (Sulfonamide Antibiotics) Allergy (Severe, Verified 03/29/19 09:38) unsure pregabalin [From Lyrica] Adverse Reaction (Severe, Verified 03/29/19 09:38) irritable,weight gain Past Medical History - General Information source: Patient - Social History Smoking Status: Unknown if Ever Smoked Cigarette use (# per day): No Frequency of alcohol use: None Drug Abuse: None Lives with: Family Family History: Reviewed & Not Pertinent, CAD, Other - Past Medical History Cardiac Medical History: Reports: Hx Atrial Fibrillation - Paroxysmal, anticoagulation discontinued due to GI bleed episodes, Hx Coronary Artery Disease, Hx Heart Attack - MA X1, STENT PLACED 2000, Hx Hypercholesterolemia, Hx Hypertension - Pt has hypotension at this time Pulmonary Medical History: Reports: Hx COPD - ON 3 L O2 NC CONTINUOUS, Hx Sleep Apnea Neurological Medical History: Reports: Hx Cerebrovascular Accident - CVA X3 LEFT WEAKER THAN RIGHT Endocrine Medical History: Reports: Hx Hypothyroidism Renal/ Medical History: Reports: Hx End Stage Renal Disease, Hx Hemodialysis - Dialyzes every Friday and Friday., Hx Renal Insufficiency - Chronic kidney disease stage III Malignancy Medical History: Reports: Hx Breast Cancer - Status post mastectomy GI Medical History: Reports: Hx ColonoscopyComment Only: Hx Ulcer - DIVERTICULITIS Musculoskeletal Medical History: Infectious Medical History: Past Surgical History: Reports: Hx Appendectomy, Hx Cardiac Catheterization, Hx Cardiac Surgery - STENT, Hx Cholecystectomy, Hx Coronary Stent - August 2014, Hx Mastectomy, Hx Tubal Ligation, Hx Vascular Surgery - PermCath placement for dialysis with subsequent AVF for dialysis, Other - AV fistula formation for hemodialysis - Immunizations Hx Diphtheria, Pertussis, Tetanus Vaccination: Yes Hx Pneumococcal Vaccination: 07/07/12 Review of Systems - Review of Systems Constitutional: No symptoms reported EENT: No symptoms reported Cardiovascular: denies: Chest pain Respiratory: See HPI, Cough, Short of breath Gastrointestinal: No symptoms reported Genitourinary: No symptoms reported Female Genitourinary: No symptoms reported Musculoskeletal: No symptoms reported Skin: No symptoms reported Hematologic/Lymphatic: No symptoms reported Neurological/Psychological: No symptoms reported -: Yes All other systems reviewed and negative Physical Exam - Vital signs Vitals: Resp Pulse Ox 35 H 94 08/08/19 11:56 08/08/19 11:56 - General General appearance: Alert In distress: Mild - HEENT Head: Normocephalic, Atraumatic Eyes: Normal Conjunctiva: Normal - Respiratory Respiratory status: Respiratory distress Chest status: Nontender Breath sounds: Decreased air movement Chest palpation: Normal - Cardiovascular Rhythm: Regular Heart sounds: Normal auscultation Murmur: No - Abdominal Inspection: Normal Distension: No distension - Extremities General upper extremity: Normal inspection. No: Tender General lower extremity: Edema. No: Tender - Neurological Neuro grossly intact: Yes Cognition: Normal Orientation: AAOx4 - Psychological Associated symptoms: Normal affect, Normal mood - Skin Skin Temperature: Hot Course - Re-evaluation Re-evalutation: 08/08/19 17:10 Currently patient's vital signs improving systolic blood pressures up to 116. 9596% on BiPAP no wheezing at this time. Discussed with hospitalist staff and master in chancery Dr. Rodriguez. Plan is to admit patient to Dr. Rodriguez service in the ICU. Transfer labile marginal blood pressure in the face of CHF COPD exacerbation. She has a chronic renal failure patient on peritoneal dialysis. Missed peritoneal dialysis on Friday 2 days ago due to change in peritoneal dialysis catheter. Patient takes Lasix on days that she does not do peritoneal dialysis 08/08/19 17:15 Due to the labile blood pressure and systolic blood pressures however hovering around [address] patient on IV Zosyn inasmuch as this could be an infectious process. Patient has had a procedure of peritoneal dialysis catheter that was changed on 2 days ago. There is a history that patient had seat fever earlier today. Patient's blood cultures are already been done on admission labs. - Vital Signs Vital signs: Temp Pulse Resp BP Pulse Ox 24 H 90/49 L 97 08/08/19 13:12 08/08/19 13:12 08/08/19 13:12 - Laboratory Result Diagrams: 08/08/19 12:15 08/08/19 12:15 Laboratory results interpreted by me: 08/08/19 08/08/19 08/08/19 12:15 12:15 12:15 RBC 3.15 L Hgb 10.1 L Hct 29.1 L RDW 14.6 H D-Dimer 0.98 H Carbonic Acid ABG pCO2 ABG pO2 ABG HCO3 ABG Total CO2 ABG O2 Saturation BUN 32 H Creatinine 4.41 H Est GFR ( Amer) 12 L Est GFR (MDRD) Non-Af 10 L Glucose 151 H Direct Bilirubin 0.5 H NT-Pro-B Natriuret Pep Total Protein 6.2 L Albumin 3.3 L 08/08/19 08/08/19 12:15 13:04 RBC Hgb Hct RDW D-Dimer Carbonic Acid 0.90 L ABG pCO2 29.9 L ABG pO2 108.3 H ABG HCO3 19.8 L ABG Total CO2 20.7 L ABG O2 Saturation 98.2 H BUN Creatinine Est GFR ( Amer) Est GFR (MDRD) Non-Af Glucose Direct Bilirubin NT-Pro-B Natriuret Pep 11170 H Total Protein Albumin - Diagnostic Test Radiology reviewed: Image reviewed, Reports reviewed Radiology results interpreted by me: 08/08/19 17:12 Prominent chronic interstitial markings. No infiltrate of pneumonia. Otherwise no acute process I also note that patient appears to have cardiomegaly - EKG Interpretation by Me Additional EKG results interpreted by me: 08/08/2019 time 1159 shows sinus tachycardia rate of about 97 multiple artifact noted frequent PACs actionable atrial flutter versus atrial fib also could be artifact will repeat EKg Critical Care Note - Critical Care Note Total time excluding time spent on procedures (mins): 59 Discharge - Discharge Clinical Impression: CHF (congestive heart failure), COPD with acute exacerbation, End stage renal failure on dialysis, Respiratory distress determined by examination Condition: Critical Disposition: ADMITTED INPATIENT Admitting Provider: Michael (Medical Billing Service) Unit Admitted: ICU Referrals: LOUIE EVANS MD [EMERITUS] - Follow up as needed I personally performed the services described in the documentation, reviewed and edited the documentation which was dictated to the scribe in my presence, and it accurately records my words and actions.
--- NOTE | 2019-08-08 18:01 | CRITICAL CARE ADMISSION REPORT ---
HPI Date:: 08/08/19 - Critical Care Attending Time:: 17:52 Reason for ICU Reason:: acute on chronic respiratory failure, ESRD HPI: Pt is a 79 yo woman with ESRD on PD, COPD, UNIQUE, CVA who presented to the ED via EMS for respiratory distress. She was placed on bipap and given breathing treatments. Pt had PD catheter inserted last Friday, therefore she missed that dialysis session. Her last dialysis was last Fri. Upon my evaluation in the ED, she is comfortable on bipap. - Diagnosis/Plan (1) Acute and chronic respiratory failure Qualifiers: Respiratory failure complication: unspecified whether with hypoxia or hypercapnia Qualified Code(s): J96.20 - Acute and chronic respiratory failure, unspecified whether with hypoxia or hypercapnia Is this a current diagnosis for this admission?: Yes (2) Chronic obstructive pulmonary disease with acute exacerbation Is this a current diagnosis for this admission?: Yes Past Medical History Cardiac Medical History: Reports: Atrial Fibrillation - Paroxysmal, anticoagulation discontinued due to GI bleed episodes, Coronary Artery Disease, Myocardial Infarction - AR X1, STENT PLACED 2000, Hyperlipidema, Hypertension - Pt has hypotension at this time Denies: Congestive Heart Failure Pulmonary Medical History: Reports: Chronic Obstructive Pulmonary Disease (COPD) - ON 3 L O2 NC CONTINUOUS, Sleep Apnea Neurological Medical History: Denies: Seizures Endocrine Medical History: Reports: Hypothyroidism Denies: Diabetes Mellitus Type 2 Renal/ Medical History: Reports: End Stage Renal Disease Malignancy Medical History: Reports: Breast Cancer - Status post mastectomy GI Medical History: Musculoskeltal Medical History: Psychiatric Medical History: Denies: Depression Hematology: Reports: Anemia - Secondary to end-stage kidney disease Denies: Sickle Cell Disease Past Surgical History Past Surgical History: Reports: Appendectomy, Cardiac Catheterization, Cholecystectomy, Coronary Stent - August 2014, Mastectomy, Tubal Ligation, Vascular Surgery - PermCath placement for dialysis with subsequent AVF for dialysis, Other - AV fistula formation for hemodialysis Denies: Amputation Social/Family History - Social History Lives with: Family Smoking Status: Unknown if Ever Smoked Frequency of Alcohol Use: None Hx Recreational Drug Use: No Drugs: None Hx Prescription Drug Abuse: No - Medication/Allergies Home Medications: Albuterol Sulfate [Proair Hfa Inhalation Aerosol 8.5 gm Mdi] 2 puff IH Q3 06/09/19 Aspirin [Aspirin 81 mg Chewable Tablet] 81 mg PO QAM 06/09/19 Cholecalciferol (Vitamin D3) [Vitamin D3 1000 Unit Tablet] 1,000 unit PO QAM 06/09/19 Epoetin Elia-Epbx [Retacrit 3,000 Unit/ml Vial (Renal)] 2 ml IV MOWE@1000 06/09/19 Fluticasone/Salmeterol [Advair 250-50 Diskus 14 Dose/Diskus] 1 inh IH Q12 06/09/19 Furosemide [Lasix 20 mg Tablet] 80 mg PO MO@0800 06/09/19 Levothyroxine Sodium [Synthroid 0.075 mg Tablet] 0.075 mg PO Q6AM 06/09/19 Liothyronine Sodium [Cytomel] 5 mcg PO QAM 06/09/19 Methocarbamol [Robaxin 500 mg Tablet] 750 mg PO QAM 06/09/19 Metoprolol Succinate [Toprol Xl 50 mg Tab.sr] 50 mg PO QPM 06/09/19 Midodrine HCl [Proamatine 5 Mg Tablet] 5 mg PO ASDIR PRN 06/09/19 Nitroglycerin [Nitrostat 0.4 mg (1/150 Gr) Tabs 25/Bottle] 1 tab SL Q5MP PRN 06/09/19 Omeprazole 40 mg PO QAM 06/09/19 Ondansetron HCl [Zofran 4 mg Tablet] 4 mg PO ASDIR PRN 06/09/19 Patiromer Calcium Sorbitex [Veltassa] 8.4 gm PO SUTUTHSA@1000 06/09/19 Rosuvastatin Calcium [Crestor 10 mg Tablet] 10 mg PO QPM 06/09/19 Sucroferric Oxyhydroxide [Velphoro] 500 mg PO AC 06/09/19 Tiotropium [place] [Spiriva Handihaler 5 Cap/Kit (18 Mcg/Cap)] 1 cap IH DAILY 06/09/19 Allergies/Adverse Reactions: Sulfa (Sulfonamide Antibiotics) Allergy (Severe, Verified 03/29/19 09:38) unsure pregabalin [From Lyrica] Adverse Reaction (Severe, Verified 03/29/19 09:38) irritable,weight gain Review of Systems ROS unobtainable: Other - unable to obtain due to bipap Physical Exam Vital Signs: Temp Pulse Resp BP Pulse Ox 101 F H 90 26 H 90/49 L 98 02/02/20 11:53 08/08/19 11:53 08/08/19 16:45 08/08/19 13:12 08/08/19 16:45 Intake & Output 08/07/19 08/08/19 08/09/19 06:59 06:59 06:59 Weight 75.75 kg Weight/Height Weight 75.75 kg Height 5 ft 2 in General appearance: PRESENT: no acute distress, well-developed, well-nourished, other - on bipap Head exam: PRESENT: atraumatic, normocephalic Respiratory exam: PRESENT: decreased breath sounds, unlabored Cardiovascular exam: PRESENT: RRR GI/Abdominal exam: PRESENT: soft, other - PD catheter in place Extremities exam: PRESENT: other - no edema Musculoskeletal exam: PRESENT: normal inspection Neurological exam: PRESENT: alert, awake Laboratory/Radiographs Laboratory Results: 08/08/19 12:15 08/08/19 12:15 08/08/19 08/08/19 08/08/19 12:15 12:15 12:15 WBC 7.6 RBC 3.15 L Hgb 10.1 L Hct 29.1 L MCV 92 MCH 32.2 MCHC 34.9 RDW 14.6 H Plt Count 203 Seg Neutrophils % 75.8 Carbonic Acid HCO3/H2CO3 Ratio ABG pH ABG pCO2 ABG pO2 ABG HCO3 ABG O2 Saturation ABG Base Excess FiO2 Sodium 137.1 Potassium 4.0 Chloride 105 Carbon Dioxide 22 Anion Gap 10 BUN 32 H Creatinine 4.41 H Est GFR ( Amer) 12 L Glucose 151 H Lactic Acid 1.5 Calcium 8.9 Total Bilirubin 0.8 AST 24 Alkaline Phosphatase 93 Total Protein 6.2 L Albumin 3.3 L Lipase 163.8 08/08/19 13:04 WBC RBC Hgb Hct MCV MCH MCHC RDW Plt Count Seg Neutrophils % Carbonic Acid 0.90 L HCO3/H2CO3 Ratio 22:1 ABG pH 7.44 ABG pCO2 29.9 L ABG pO2 108.3 H ABG HCO3 19.8 L ABG O2 Saturation 98.2 H ABG Base Excess -3.6 FiO2 40% Sodium Potassium Chloride Carbon Dioxide Anion Gap BUN Creatinine Est GFR ( Amer) Glucose Lactic Acid Calcium Total Bilirubin AST Alkaline Phosphatase Total Protein Albumin Lipase 08/08/19 12:15 NT-Pro-B Natriuret Pep 90234 H Impressions: Chest X-Ray 08/08/19 12:02 IMPRESSION: CHRONIC INTERSTITIAL CHANGES. NO ACUTE RADIOGRAPHIC FINDING IN THE CHEST. EKG: [AFLT] . ATRIAL FLUTTER, A-RATE 286 [REPBLA] . BORDERLINE REPOL ABNORMALITY, LATERAL LEADS [MSTEA] . MINIMAL ST ELEVATION, ANTERIOR LEADS Critical Time Critical Time (minutes): 50 -: The care of a critically ill patient is dynamic. This note represents a static moment in the admission process. Orders and treatments may be given simultaneously and urgently, and time is not charter representative of the treatment process. This patient requires Critical Care secondary to life threatening organ or limb dysfunction. Without Critical Care services, the patient is at risk for increased mortality and morbidity. Provider Note Provider Note: Assessment: Critically ill 79 yo woman with aucte on chronic respiratory failure, AECOPD, UNIQUE, ESRD on PD Plan: 1. Respiratory: acute on chronic respiratory failure. Continue bipap. UNIQUE. In on home bipap 2. Pulmonary: AECOPD. Continue steroids on bronchodilators. Mild pulmonary edema due to missing dialysis 3. CV: SBP is in the low 100. Would not diurese. h/o CAD. EKG shows aflutter. Will repeat in am. Troponin pending 4. Renal: ESRD. On PD. New PD catheter inserted on Friday. Last dialysis session was on Fri. Will consult renal in the AM for PD 5. Nutrition: NPO 6. Endocrine:accuchecks, SSI 7. Prophylaxis: sq heparin Critical care time= 50 min, excluding procedures
[2019-08-08] MEDS: IPRATROPIUM/ALBUTEROL 0.5-2.5 MG/3 ML AMPUL NEB SCH (20:52)
[2019-08-08 21:31] LABS: HEMATOCRIT 28.7 % (36.0-47.0); HEMOGLOBIN 9.9 g/dL (12.0-15.5); MEAN CORPUSCULAR HEMOGLOBIN 31.9 pg (27.0-33.4); MEAN CORPUSCULAR HGB CONC 34.4 g/dL (32.0-36.0); MEAN CORPUSCULAR VOLUME 93 fl (80-97); PLATELET COUNT 182 10^3/uL (150-450); RED CELL DISTRIBUTION WIDTH 14.5 % (11.5-14.0); WHITE BLOOD COUNT 4.7 10^3/uL (4.0-10.5)
[2019-08-08] MEDS: INSULIN REG, HUMAN 100 UNIT/ML 3 ML VIAL (PYX) SUBCUT SCH (22:29)
[2019-08-08] MEDS: HEPARIN SOD (PORCINE) 5,000 UNIT/ML 1 ML VIAL SUBCUT SCH (22:30)
[2019-08-08] MEDS: METHYLPREDNISOLONE INJ 40 MG/1 ML SDV IV SCH (22:30)
--- NOTE | 2019-08-09 00:15 | EKG REPORT ---
SEVERITY:- ABNORMAL ECG - SINUS RHYTHM BORDERLINE REPOL ABNORMALITY, LATERAL LEADS MINIMAL ST ELEVATION, ANTERIOR LEADS : Confirmed by: Brittni Alonso 09-Aug-2019 00:14:43
[2019-08-09] MEDS: IPRATROPIUM/ALBUTEROL 0.5-2.5 MG/3 ML AMPUL NEB SCH ×7 (00:36→23:57)
[2019-08-09] MEDS: INSULIN REG, HUMAN 100 UNIT/ML 3 ML VIAL (PYX) SUBCUT SCH ×5 (01:46→23:26)
[2019-08-09 02:27] LABS: HEMATOCRIT 26.9 % (36.0-47.0); HEMOGLOBIN 9.2 g/dL (12.0-15.5); MEAN CORPUSCULAR HEMOGLOBIN 31.7 pg (27.0-33.4); MEAN CORPUSCULAR HGB CONC 34.4 g/dL (32.0-36.0); MEAN CORPUSCULAR VOLUME 92 fl (80-97); PLATELET COUNT 180 10^3/uL (150-450); RED BLOOD COUNT 2.91 10^6/uL (3.72-5.28); RED CELL DISTRIBUTION WIDTH 14.4 % (11.5-14.0); WHITE BLOOD COUNT 4.2 10^3/uL (4.0-10.5)
[2019-08-09] MEDS ORDERED: LEVOTHYROXINE SODIUM 0.075 MG TABLET PO SCH (06:00)
[2019-08-09] MEDS: METHYLPREDNISOLONE INJ 40 MG/1 ML SDV IV SCH ×3 (07:04→22:12)
[2019-08-09] MEDS: HEPARIN SOD (PORCINE) 5,000 UNIT/ML 1 ML VIAL SUBCUT SCH ×3 (07:06→22:12)
[2019-08-09 07:15] LABS: HEMATOCRIT 26.2 % (36.0-47.0); HEMOGLOBIN 9.2 g/dL (12.0-15.5); MEAN CORPUSCULAR VOLUME 92 fl (80-97); PLATELET COUNT 192 10^3/uL (150-450); RED BLOOD COUNT 2.86 10^6/uL (3.72-5.28); RED CELL DISTRIBUTION WIDTH 14.3 % (11.5-14.0); WHITE BLOOD COUNT 5.7 10^3/uL (4.0-10.5)
[2019-08-09 07:40] LABS: APPEARANCE,URINE SLIGHTLY-CLOUDY; BILIRUBIN,URINE NEGATIVE (NEGATIVE); COLOR,URINE YELLOW; GLUCOSE, URINE 50 mg/dL (NEGATIVE); KETONES,URINE NEGATIVE (NEGATIVE); LEUKOCYTE ESTERASE,URINE NEGATIVE (NEGATIVE); NITRITE,URINE NEGATIVE (NEGATIVE); PROTEIN,URINE >=500 mg/dL (NEGATIVE); URINE SPECIFIC GRAVITY 1.019; UROBILINOGEN,URINE NEGATIVE mg/dL (<2.0)
[2019-08-09 07:41] LABS: ALBUMIN 2.8 g/dL (3.5-5.0); ALKALINE PHOSPHATASE 65 U/L (38-126); ANION GAP 9 (5-19); ASPARTATE AMINO TRANSFERASE 21 U/L (14-36); BILIRUBIN,TOTAL 0.4 mg/dL (0.2-1.3); BLOOD UREA NITROGEN 38 mg/dL (7-20); CALCIUM 8.9 mg/dL (8.4-10.2); CARBON DIOXIDE 20 mmol/L (22-30); CHLORIDE 110 mmol/L (98-107); GLUCOSE 145 mg/dL (75-110); POTASSIUM 3.7 mmol/L (3.6-5.0); TOTAL PROTEIN 5.1 g/dL (6.3-8.2)
--- NOTE | 2019-08-09 08:23 | RADIOLOGY REPORT (SQ) ---
EXAM DESCRIPTION: CHEST SINGLE VIEW COMPLETED DATE/TIME: 08/09/2019 6:56 am REASON FOR STUDY: resp failure COMPARISON: 08/08/2019 EXAM PARAMETERS: NUMBER OF VIEWS: One view. TECHNIQUE: Single frontal radiographic view of the chest acquired. RADIATION DOSE: NA LIMITATIONS: None. FINDINGS: LUNGS AND PLEURA: Coarse chronic interstitial changes with more focal ill-defined opacity in the right mid lung. No large effusion. No pneumothorax. MEDIASTINUM AND HILAR STRUCTURES: No masses. Contour normal. HEART AND VASCULAR STRUCTURES: Enlarged cardiac silhouette, stable. Aortic atherosclerosis. BONES: No acute findings. HARDWARE: Loop recorder overlies left chest. OTHER: No other significant finding. IMPRESSION: Chronic interstitial changes with more focal opacity of the right mid lung suggestive of superimposed pneumonia. TECHNICAL DOCUMENTATION: JOB ID: [id number] [employer]- All Rights Reserved Reading location - IP/workstation name: [email or web address]
--- NOTE | 2019-08-09 08:37 | EKG REPORT ---
SEVERITY:- ABNORMAL ECG - SINUS RHYTHM PROBABLE LEFT VENTRICULAR HYPERTROPHY BORDERLINE PROLONGED QT INTERVAL : Confirmed by: Brittni Alonso 09-Aug-2019 08:37:21
[2019-08-09] MEDS ORDERED: EPOETIN ALFA-EPBX 2,000 UNIT, EPOETIN ALFA-EPBX 3,000 UNIT, EPOETIN ALFA-EPBX 20,000 UN... IV PRN ×4 (10:00)
--- NOTE | 2019-08-09 11:37 | PDOC CRITICAL CARE PROG REPORT ---
General Date:: 08/09/19 ICU Day:: 2 Hospital Day:: 2 Resuscitation Status: Full Code Events in the past 12 to 24 Hours:: Improved breathing. Needs HD Review of systems relevant to events:: Renal and respiratory. Reason for ICU Addmission:: acute on chronic respiratory failure, ESRD. Need for bipap and possible intubation. - Medications: Medications reviewed and adjusted accordingly: Yes Vasopressors:: None Sedation:: None. Physical Exam Vital Signs: Temp Pulse Resp BP Pulse Ox 98.4 F 85 21 H 135/80 H 99 08/09/19 08:00 08/09/19 10:00 08/09/19 10:00 08/09/19 10:00 08/09/19 10:00 Intake & Output 08/08/19 08/09/19 08/10/19 06:59 06:59 06:59 Intake Total 1000 Output Total 0 0 Balance 1000 0 Weight 78.3 kg Weight/Height Weight 78.3 kg Height 5 ft 2 in General appearance: PRESENT: no acute distress, cooperative Head exam: PRESENT: atraumatic, normocephalic Eye exam: PRESENT: conjunctiva pink, EOMI, PERRLA. ABSENT: scleral icterus Ear exam: PRESENT: normal external ear exam Mouth exam: PRESENT: moist, tongue midline Respiratory exam: PRESENT: clear to auscultation [place], decreased breath sounds. ABSENT: rales, rhonchi, wheezes Cardiovascular exam: PRESENT: RRR. ABSENT: diastolic murmur, rubs, systolic murmur GI/Abdominal exam: PRESENT: normal bowel sounds, soft. ABSENT: distended, guarding, mass, organolmegaly, rebound, tenderness Rectal exam: PRESENT: deferred Gentrourinary exam: PRESENT: indwelling catheter Extremities exam: PRESENT: full ROM. ABSENT: calf tenderness, clubbing, pedal edema Neurological exam: PRESENT: alert, awake, oriented to person, oriented to place, oriented to time, oriented to situation, CN II-XII grossly intact. ABSENT: motor sensory deficit Skin exam: PRESENT: dry, intact, warm. ABSENT: cyanosis, rash Laboratory/Radiographs Laboratory Results: 08/09/19 06:50 08/09/19 06:50 08/08/19 08/08/19 08/08/19 12:15 12:15 12:15 WBC 7.6 RBC 3.15 L Hgb 10.1 L Hct 29.1 L MCV 92 MCH 32.2 MCHC 34.9 RDW 14.6 H Plt Count 203 Seg Neutrophils % 75.8 Carbonic Acid HCO3/H2CO3 Ratio ABG pH ABG pCO2 ABG pO2 ABG HCO3 ABG O2 Saturation ABG Base Excess FiO2 Sodium 137.1 Potassium 4.0 Chloride 105 Carbon Dioxide 22 Anion Gap 10 BUN 32 H Creatinine 4.41 H Est GFR ( Amer) 12 L Glucose 151 H Lactic Acid 1.5 Calcium 8.9 Total Bilirubin 0.8 AST 24 Alkaline Phosphatase 93 Total Protein 6.2 L Albumin 3.3 L Lipase 163.8 Urine Color Urine Appearance Urine pH Ur Specific [place] Urine Protein Urine Glucose (UA) Urine Ketones Urine Blood Urine Nitrite Ur Leukocyte Esterase Urine WBC (Auto) Urine RBC (Auto) 08/08/19 08/08/19 08/09/19 13:04 21:20 02:18 WBC 4.7 4.2 RBC 3.10 L 2.91 L Hgb 9.9 L 9.2 L Hct 28.7 L 26.9 L MCV 93 92 MCH 31.9 31.7 MCHC 34.4 34.4 RDW 14.5 H 14.4 H Plt Count 182 180 Seg Neutrophils % Carbonic Acid 0.90 L HCO3/H2CO3 Ratio 22:1 ABG pH 7.44 ABG pCO2 29.9 L ABG pO2 108.3 H ABG HCO3 19.8 L ABG O2 Saturation 98.2 H ABG Base Excess -3.6 FiO2 40% Sodium Potassium Chloride Carbon Dioxide Anion Gap BUN Creatinine Est GFR ( Amer) Glucose Lactic Acid Calcium Total Bilirubin AST Alkaline Phosphatase Total Protein Albumin Lipase Urine Color Urine Appearance Urine pH Ur Specific [place] Urine Protein Urine Glucose (UA) Urine Ketones Urine Blood Urine Nitrite Ur Leukocyte Esterase Urine WBC (Auto) Urine RBC (Auto) 08/09/19 08/09/19 08/09/19 06:50 06:50 07:16 WBC 5.7 RBC 2.86 L Hgb 9.2 L Hct 26.2 L MCV 92 MCH 32.0 MCHC 35.0 RDW 14.3 H Plt Count 192 Seg Neutrophils % Carbonic Acid HCO3/H2CO3 Ratio ABG pH ABG pCO2 ABG pO2 ABG HCO3 ABG O2 Saturation ABG Base Excess FiO2 Sodium 138.7 Potassium 3.7 Chloride 110 H Carbon Dioxide 20 L Anion Gap 9 BUN 38 H Creatinine 4.71 H Est GFR ( Amer) 11 L Glucose 145 H Lactic Acid Calcium 8.9 Total Bilirubin 0.4 AST 21 Alkaline Phosphatase 65 Total Protein 5.1 L Albumin 2.8 L Lipase Urine Color YELLOW Urine Appearance SLIGHTLY-CLOUDY Urine pH 5.0 Ur Specific [place] 1.019 Urine Protein >=500 H Urine Glucose (UA) 50 H Urine Ketones NEGATIVE Urine Blood NEGATIVE Urine Nitrite NEGATIVE Ur Leukocyte Esterase NEGATIVE Urine WBC (Auto) 2 Urine RBC (Auto) 5 08/08/19 08/08/19 12:15 18:45 Troponin I 0.040 NT-Pro-B Natriuret Pep 05050 H Impressions: Chest X-Ray 08/09/19 06:00 IMPRESSION: Chronic interstitial changes with more focal opacity of the right mid lung suggestive of superimposed pneumonia. All labs, radiographs, diagnostic studies and EKGs were personally reviewed: Yes In addition, reports of radiographic and diagnostic studies were read: Yes Assessment and Plan - Diagnosis (1) Chronic obstructive pulmonary disease with acute exacerbation Is this a current diagnosis for this admission?: Yes Plan: Stable without wheezing. Off and on bipap. (2) End stage renal failure on dialysis Is this a current diagnosis for this admission?: Yes Plan: She just got a peritoneal dialysis catheter. To get HD today. Plan Summary: OK to downgrade to medical floor. Critical Time Critical Time (minutes): 30 Level of Care: MEDICAL Anticipated discharge: Home Within: within 48 hours -: 1. The care of a critical patient is a dynamic process. This note is a personnel representative synopsis but static in nature. The timeframe for treatments given in order is not necessarily the actual time these treatments may have been done. 2. This patient requires critical care secondary to ongoing requirements for therapy not offered or safe outside the critical care environment. Transfer to a lower level of care will result in altered life or limb morbidity and mortality. 3. Multidisciplinary rounds completed. 4. ABCDE bundle addressed.
[2019-08-09] MEDS: ACETAMINOPHEN 325 MG TABLET PO PRN (13:42)
[2019-08-09] MEDS ORDERED: ALBUTEROL SULFATE HFA (90 MCG/PUFF) 200 PUFF/8.5 GM MDI IH PRN (15:46)
[2019-08-09] MEDS ORDERED: NITROGLYCERIN 0.4 MG/TAB 25 TAB/BOTTLE SL PRN (15:46)
--- NOTE | 2019-08-09 18:20 | PDOC CONSULTATION ---
Consultation Consult Date: 08/09/19 Provider Consulted: Ghassan LAWRENCE Consult reason:: ESRD for hemodialysis. 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 She had PD catheter placed last week and she missed her dialysis apparently on Friday. Last dialysis was last Friday. However she makes decent amounts of urine according to her. She denies any history of chest pains, fever or chills. However she had a cough which was nonproductive.Evaluations revealed that she was in respiratory failure she was put on BiPAP and given breathing tr eatments. Presently when I see her in the ICU she still on the BiPAP but feels that she is somewhat better.She denies any abdominal pains around PD catheter exit site. Patient was subsequently seen on dialysis. She is undergoing dialysis without any issues. Clinically she is rather better and currently she is on a nasal mask rather than the BiPAP. Discussed dialysis orders with the treating geovanni reynolds nurse and plan to remove no fluid to maybe 500 cc of fluid. Monitor blood pressure carefully. Avoid hypotension. - Past Medical History Cardiac Medical History: Reports: Atrial Fibrillation - Paroxysmal, anticoagulation discontinued due to GI bleed episodes, Coronary Artery Disease, Hyperlipidemia, Hypertension-primary, Myocardial Infarction - ID X1, STENT PLACED 2000 Pulmonary Medical History: Reports: Chronic Obstructive Pulmonary Disease (COPD) - ON 3 L O2 NC CONTINUOUS, Sleep Apnea Neurological Medical History: Denies: Seizures Endocrine Medical History: Reports: Hypothyroidism Denies: Diabetes Mellitus Type 2 Renal/ Medical History: Reports: End Stage Renal Disease, Hyperphosphatemia, Metabolic Acidosis Malignancy Medical History: Reports: Breast Cancer - Status post mastectomy GI Medical History: Musculoskeltal Medical History: Psychiatric Medical History: Denies: Depression Hematology Medical History: Reports Anemia of Chronic Kidney Disease Past Surgical History Past Surgical History: Reports: Appendectomy, Cardiac Catheterization, Cholecystectomy, Coronary Stent - August 2014, Dialysis Access Surgery AVF, Mastectomy, Tubal Ligation, Vascular Surgery - PermCath placement for dialysis with subsequent AVF for dialysis, Other - AV fistula formation for hemodialysis Social History Lives with: Family Smoking Status: Unknown if Ever Smoked Electronic Cigarette use?: No Frequency of Alcohol Use: None Hx Recreational Drug Use: No Drugs: None Hx Prescription Drug Abuse: No - Advance Directive Resuscitation Status: Full Code Family History Parental Family History Reviewed: No Children Family History Reviewed: No Sibling(s) Family History Reviewed.: No Medication/Allergy Home Medications: Furosemide [Lasix 20 mg Tablet] 20 mg PO SUTUTHFRSA@0800 06/09/19 Liothyronine Sodium [Cytomel] 5 mcg PO Q6AM 06/09/19 Metoprolol Succinate [Toprol Xl 50 mg Tab.sr] 50 mg PO QPM 06/09/19 Nitroglycerin [Nitrostat 0.4 mg (1/150 Gr) Tabs 25/Bottle] 1 tab SL Q5MP PRN 06/09/19 Omeprazole 40 mg PO QAM 06/09/19 Rosuvastatin Calcium [Crestor 10 mg Tablet] 10 mg PO QPM 06/09/19 Sucroferric Oxyhydroxide [Velphoro] 500 mg PO AC 06/09/19 Albuterol Sulfate [Albuterol Sulfate Hfa] 2 puff IH Q3HP PRN 08/09/19 Aspirin [Ecotrin 81 mg EC Tablet] 81 mg PO DAILY 08/09/19 Cholecalciferol (Vitamin D3) [Vitamin D3] 1,000 unit PO DAILY 08/09/19 Fluticasone/Salmeterol [Advair 250-50 Diskus 14 Dose/Diskus] 1 inh IH Q12 08/09/19 Levothyroxine Sodium [Synthroid 0.088 mg Tablet] 0.088 mg PO Q6AM 08/09/19 Methocarbamol [Robaxin 750 mg Tablet] 750 mg PO DAILY 08/09/19 Tiotropium [place] [Spiriva Handihaler 5 Cap/Kit (18 Mcg/Cap)] 1 cap IH DAILY 08/09/19 Allergies/Adverse Reactions: Sulfa (Sulfonamide Antibiotics) Allergy (Severe, Verified 03/29/19 09:38) unsure pregabalin [From Lyrica] Adverse Reaction (Severe, Verified 03/29/19 09:38) irritable,weight gain Review of Systems Constitutional: PRESENT: fatigue, weakness. ABSENT: anorexia, chills, fever(s) Nose, Mouth, and Throat: ABSENT: mouth pain, sore throat Cardiovascular: PRESENT: dyspnea on exertion. ABSENT: chest pain, edema, orthropnea, palpitations Respiratory: PRESENT: cough, dyspnea. ABSENT: hemoptysis Gastrointestinal: ABSENT: abdominal pain, coffee ground emesis, constipation, diarrhea, dysphagia, heartburn, hematemesis Genitourinary: ABSENT: dysuria, hematuria Musculoskeletal: ABSENT: deformity, joint swelling Integumentary: ABSENT: lesions, pruritus Neurological: ABSENT: abnormal movements, frequent falls, lack of coordination Endocrine: ABSENT: polydipsia, polyphagia, polyuria Hematologic/Lymphatic: ABSENT: easy bruising, lymphadenopathy Physical Exam Vital Signs: Temp Pulse Resp BP Pulse Ox 98.0 F 86 20 125/73 100 08/09/19 16:00 08/09/19 16:03 08/09/19 16:03 08/09/19 16:00 08/09/19 16:03 Intake & Output 08/08/19 08/09/19 08/10/19 06:59 06:59 06:59 Intake Total 1000 Output Total 0 0 Balance 1000 0 Weight 78.3 kg General appearance: PRESENT: mild distress Eye exam: PRESENT: EOMI, PERRLA. ABSENT: scleral icterus Ear exam: PRESENT: normal external ear exam Mouth exam: PRESENT: neck supple. ABSENT: moist Neck exam: ABSENT: lymphadenopathy, meningismus, tenderness, thyromegaly, tracheal deviation Respiratory exam: PRESENT: clear to auscultation [place], rhonchi - Few scattered.. ABSENT: crackles Cardiovascular exam: PRESENT: +S1, +S2 GI/Abdominal exam: PRESENT: normal bowel sounds, soft, tenderness - She is tender around the exit site of the recently placed PD catheter. However there is no signs of redness or exit site infection.. ABSENT: distended, guarding, organomegaly, rebound Extremities exam: ABSENT: pedal edema Neurological exam: PRESENT: alert, awake, oriented to person, oriented to place, oriented to time Psychiatric exam: PRESENT: anxious Skin exam: ABSENT: cyanosis, erythema, mottled, rash Results Laboratory Results: 08/09/19 06:50 08/09/19 06:50 08/08/19 08/09/19 08/09/19 21:20 02:18 06:50 WBC 4.7 4.2 5.7 RBC 3.10 L 2.91 L 2.86 L Hgb 9.9 L 9.2 L 9.2 L Hct 28.7 L 26.9 L 26.2 L MCV 93 92 92 MCH 31.9 31.7 32.0 MCHC 34.4 34.4 35.0 RDW 14.5 H 14.4 H 14.3 H Plt Count 182 180 192 Sodium Potassium Chloride Carbon Dioxide Anion Gap BUN Creatinine Est GFR ( Amer) Glucose Calcium Total Bilirubin AST Alkaline Phosphatase Total Protein Albumin Urine Color Urine Appearance Urine pH Ur Specific [place] Urine Protein Urine Glucose (UA) Urine Ketones Urine Blood Urine Nitrite Ur Leukocyte Esterase Urine WBC (Auto) Urine RBC (Auto) 08/09/19 08/09/19 06:50 07:16 WBC RBC Hgb Hct MCV MCH MCHC RDW Plt Count Sodium 138.7 Potassium 3.7 Chloride 110 H Carbon Dioxide 20 L Anion Gap 9 BUN 38 H Creatinine 4.71 H Est GFR ( Amer) 11 L Glucose 145 H Calcium 8.9 Total Bilirubin 0.4 AST 21 Alkaline Phosphatase 65 Total Protein 5.1 L Albumin 2.8 L Urine Color YELLOW Urine Appearance SLIGHTLY-CLOUDY Urine pH 5.0 Ur Specific [place] 1.019 Urine Protein >=500 H Urine Glucose (UA) 50 H Urine Ketones NEGATIVE Urine Blood NEGATIVE Urine Nitrite NEGATIVE Ur Leukocyte Esterase NEGATIVE Urine WBC (Auto) 2 Urine RBC (Auto) 5 08/08/19 08/08/19 12:15 18:45 Troponin I 0.040 NT-Pro-B Natriuret Pep [id number] H Impressions: Chest X-Ray 08/09/19 06:00 IMPRESSION: Chronic interstitial changes with more focal opacity of the right mid lung suggestive of superimposed pneumonia. Assessment & Plan - Diagnosis (1) Acute and chronic respiratory failure Qualifiers: Respiratory failure complication: unspecified whether with hypoxia or hypercapnia Qualified Code(s): J96.20 - Acute and chronic respiratory failure, unspecified whether with hypoxia or hypercapnia Is this a current diagnosis for this admission?: Yes Plan: She has got what looks like exacerbation of COPD. She has been on BiPAP and nebulizers and presently is somewhat better.Currently she is on nasal mask. Continue management as per improvement lead. (2) Chronic obstructive pulmonary disease with acute exacerbation Is this a current diagnosis for this admission?: Yes Plan: As mentioned earlier. Clinically improved since I saw her overhead distribution engineer and subsequently on dialysis. (3) End stage renal failure on dialysis Is this a current diagnosis for this admission?: Yes Plan: Patient currently undergoing dialysis without any issues. Vital signs are curre ntly stable. Dialysis is being supervised to ensure safe and smooth procedure. Discussed with orders with dialysis nurse. Plan to remove 0 to 500 cc of fluid given that she may drop her blood pressure and can lead to strokes.She just had a new PD catheter placed last week. It looks stable with no signs of infection. She would need a dressing change in the next day or 2. (4) Anemia in chronic kidney disease Plan: Adjust erythropoietin. (5) HTN (hypertension) Qualifiers: Hypertension type: renovascular hypertension Qualified Code(s): I15.0 - Renovascular hypertension Plan: Controlled. (6) History of GI bleed Plan: Plan to not use any heparin on dialysis. (8) History of CVA (cerebrovascular accident) Plan: Status quo.
[2019-08-09] MEDS: METOPROLOL SUCCINATE 50 MG TAB.SR.24H PO SCH (18:24)
[2019-08-09] MEDS ORDERED: (PENDING PHARMACY ID) (Fluticasone/Salmeterol 1 INH) IH SCH (22:00)
[2019-08-09] MEDS: ATORVASTATIN CALCIUM 20 MG TABLET PO SCH (22:12)
[2019-08-10] MEDS: IPRATROPIUM/ALBUTEROL 0.5-2.5 MG/3 ML AMPUL NEB SCH ×5 (04:53→20:53)
[2019-08-10] MEDS: LEVOTHYROXINE SODIUM 0.088 MG TABLET PO SCH (05:52)
[2019-08-10] MEDS: LIOTHYRONINE SODIUM 5 MCG TABLET PO SCH (05:52)
[2019-08-10] MEDS: HEPARIN SOD (PORCINE) 5,000 UNIT/ML 1 ML VIAL SUBCUT SCH ×3 (05:54→22:06)
[2019-08-10] MEDS: METHYLPREDNISOLONE INJ 40 MG/1 ML SDV IV SCH ×3 (05:55→22:06)
[2019-08-10] MEDS: INSULIN REG, HUMAN 100 UNIT/ML 3 ML VIAL (PYX) SUBCUT SCH ×3 (05:59→17:58)
[2019-08-10] MEDS ORDERED: (PENDING PHARMACY ID) (Liothyronine Sodium [Cytomel] 5 MCG) PO SCH (06:00)
[2019-08-10] MEDS: FUROSEMIDE 20 MG TABLET PO SCH (09:39)
[2019-08-10] MEDS: ASPIRIN 81 MG TABLET, ENT COATED PO SCH (09:40)
[2019-08-10] MEDS: PANTOPRAZOLE SODIUM 40 MG TABLET.DR PO SCH (09:40)
[2019-08-10] MEDS: METHOCARBAMOL 750 MG TABLET PO SCH (09:40)
[2019-08-10] MEDS: CHOLECALCIFEROL (D3) 1,000 UNIT (25 MCG) TABLET PO SCH (09:40)
[2019-08-10] MEDS: FLUTICASONE/VILANTEROL 200-25 MCG/DOSE IH SCH (09:41)
[2019-08-10] MEDS: UMECLIDINIUM BROMIDE 62.5 MCG/DOSE IH SCH (09:42)
[2019-08-10] MEDS ORDERED: (PENDING PHARMACY ID) (Cholecalciferol (Vitamin D3) [Vitamin D3] 1,000 UNIT) PO SCH (10:00)
[2019-08-10] MEDS ORDERED: CIPROFLOXACIN HCL 500 MG TABLET PO SCH (10:00)
[2019-08-10] MEDS ORDERED: (PENDING PHARMACY ID) (Tiotropium Bromide [Spiriva Handihaler 5 Cap/Kit (18 Mcg/Cap)] 1 CA IH SCH (10:00)
[2019-08-10] MEDS: ACETAMINOPHEN 325 MG TABLET PO PRN (13:22)
--- NOTE | 2019-08-10 13:27 | PDOC CRITICAL CARE PROG REPORT ---
General Date:: 08/10/19 ICU Day:: 2 Hospital Day:: 3 Resuscitation Status: Full Code Events in the past 12 to 24 Hours:: Off bipap but still intermittently hypoxic Review of systems relevant to events:: Respiratory Reason for ICU Addmission:: acute on chronic respiratory failure, ESRD. Need for bipap and possible intubation. - Medications: Medications reviewed and adjusted accordingly: Yes Vasopressors:: None Sedation:: None Physical Exam Vital Signs: Temp Pulse Resp BP Pulse Ox 99.3 F 84 17 123/99 H 98 08/10/19 12:00 08/10/19 12:23 08/10/19 12:23 08/10/19 12:00 08/10/19 12:23 Intake & Output 08/09/19 08/10/19 08/11/19 06:59 06:59 06:59 Intake Total 1000 0 Output Total 0 837 150 Balance 1000 -837 -150 Weight 78.3 kg 79.4 kg Weight/Height Weight 79.4 kg Height 5 ft 2 in General appearance: PRESENT: no acute distress, well-developed, well-nourished Head exam: PRESENT: atraumatic, normocephalic Eye exam: PRESENT: conjunctiva pink, EOMI, PERRLA. ABSENT: scleral icterus Ear exam: PRESENT: normal external ear exam Mouth exam: PRESENT: moist, tongue midline Respiratory exam: PRESENT: clear to auscultation ashanti, decreased breath sounds. ABSENT: rales, rhonchi, wheezes Cardiovascular exam: PRESENT: RRR. ABSENT: diastolic murmur, rubs, systolic murmur Vascular exam: PRESENT: normal capillary refill GI/Abdominal exam: PRESENT: normal bowel sounds, soft. ABSENT: distended, guarding, mass, organolmegaly, rebound, tenderness Rectal exam: PRESENT: deferred Extremities exam: PRESENT: full ROM. ABSENT: calf tenderness, clubbing, pedal edema Musculoskeletal exam: PRESENT: normal inspection Neurological exam: PRESENT: alert, awake, oriented to person, oriented to place, oriented to time, oriented to situation, CN II-XII grossly intact. ABSENT: motor sensory deficit Skin exam: PRESENT: dry, intact, warm. ABSENT: cyanosis, rash Laboratory/Radiographs Laboratory Results: 08/09/19 06:50 08/09/19 06:50 08/08/19 08/08/19 12:15 18:45 Troponin I 0.040 NT-Pro-B Natriuret Pep [id number] H Impressions: Chest X-Ray 08/09/19 06:00 IMPRESSION: Chronic interstitial changes with more focal opacity of the right mid lung suggestive of superimposed pneumonia. All labs, radiographs, diagnostic studies and EKGs were personally reviewed: Yes In addition, reports of radiographic and diagnostic studies were read: Yes Assessment and Plan - Diagnosis (1) Chronic obstructive pulmonary disease with acute exacerbation Is this a current diagnosis for this admission?: Yes Plan: COPD is playing a role. She has O2 at home wearing at night with CPAP. She dropped O2 saturations to 83% off O2. She needs another day for mobilization and stabilization of lung status. (2) End stage renal failure on dialysis Is this a current diagnosis for this admission?: Yes Plan: She received HD yesterday and is not in need today. Plan Summary: Transfer to medical floor for another day to mobilize. Critical Time Critical Time (minutes): 30 Level of Care: MEDICAL Anticipated discharge: Home Within: within 72 hours -: 1. The care of a critical patient is a dynamic process. This note is a self pay representative synopsis but static in nature. The timeframe for treatments given in order is not necessarily the actual time these treatments may have been done. 2. This patient requires critical care secondary to ongoing requirements for therapy not offered or safe outside the critical care environment. Transfer to a lower level of care will result in altered life or limb morbidity and mortality. 3. Multidisciplinary rounds completed. 4. ABCDE bundle addressed.
[2019-08-10] MEDS: (PENDING PHARMACY ID) (Sucroferric Oxyhydroxide [Velphoro] 500 MG) PO SCH ×2 (16:24→16:25)
[2019-08-10] MEDS: METOPROLOL SUCCINATE 50 MG TAB.SR.24H PO SCH (17:59)
[2019-08-10] MEDS: ATORVASTATIN CALCIUM 20 MG TABLET PO SCH (22:06)
[2019-08-11] MEDS: INSULIN REG, HUMAN 100 UNIT/ML 3 ML VIAL (PYX) SUBCUT SCH ×4 (00:47→18:37)
[2019-08-11] MEDS: ACETAMINOPHEN 325 MG TABLET PO PRN (00:56)
[2019-08-11] MEDS: IPRATROPIUM/ALBUTEROL 0.5-2.5 MG/3 ML AMPUL NEB SCH ×4 (04:23→17:05)
[2019-08-11] MEDS: METHYLPREDNISOLONE INJ 40 MG/1 ML SDV IV SCH (05:53)
[2019-08-11] MEDS: HEPARIN SOD (PORCINE) 5,000 UNIT/ML 1 ML VIAL SUBCUT SCH ×2 (05:53→14:54)
[2019-08-11] MEDS: LIOTHYRONINE SODIUM 5 MCG TABLET PO SCH (05:54)
[2019-08-11] MEDS: LEVOTHYROXINE SODIUM 0.088 MG TABLET PO SCH (05:54)
[2019-08-11] MEDS: PANTOPRAZOLE SODIUM 40 MG TABLET.DR PO SCH (08:12)
[2019-08-11 08:51] LABS: HEMOGLOBIN 10.2 g/dL (12.0-15.5); MEAN CORPUSCULAR HEMOGLOBIN 32.2 pg (27.0-33.4); MEAN CORPUSCULAR HGB CONC 35.4 g/dL (32.0-36.0); MEAN CORPUSCULAR VOLUME 91 fl (80-97); PLATELET COUNT 202 10^3/uL (150-450); RED BLOOD COUNT 3.18 10^6/uL (3.72-5.28); RED CELL DISTRIBUTION WIDTH 14.3 % (11.5-14.0); WHITE BLOOD COUNT 8.3 10^3/uL (4.0-10.5)
[2019-08-11 09:13] LABS: ANION GAP 12 (5-19); BLOOD UREA NITROGEN 44 mg/dL (7-20); CALCIUM 8.2 mg/dL (8.4-10.2); CARBON DIOXIDE 26 mmol/L (22-30); CHLORIDE 96 mmol/L (98-107); GLUCOSE 122 mg/dL (75-110); POTASSIUM 4.1 mmol/L (3.6-5.0)
[2019-08-11] MEDS: ASPIRIN 81 MG TABLET, ENT COATED PO SCH (09:58)
[2019-08-11] MEDS: UMECLIDINIUM BROMIDE 62.5 MCG/DOSE IH SCH (09:58)
[2019-08-11] MEDS: CHOLECALCIFEROL (D3) 1,000 UNIT (25 MCG) TABLET PO SCH (09:58)
[2019-08-11] MEDS: METHOCARBAMOL 750 MG TABLET PO SCH (09:58)
[2019-08-11] MEDS: FLUTICASONE/VILANTEROL 200-25 MCG/DOSE IH SCH (09:58)
--- NOTE | 2019-08-11 10:09 | PDOC PROGRESS REPORT ---
Subjective Progress Note for:: 08/11/19 Subjective:: Patient is resting in bed. She is on nasal cannula oxygen but breathing is comfortable. Still having abdominal tenderness from the peritoneal dialysis catheter placement. She is anxious to go home. Hemodialysis likely this afternoon. Reason For Visit: ACUTE ON CHRONIC RESPIRATORY FAILURE,ESRD Physical Exam Vital Signs: Temp Pulse Resp BP Pulse Ox 98.3 F 98 27 H 132/77 H 94 08/11/19 08:27 08/11/19 08:27 08/11/19 08:27 08/11/19 08:27 08/11/19 08:27 Intake & Output 08/10/19 08/11/19 08/12/19 06:59 06:59 06:59 Intake Total 0 200 Output Total 837 1350 Balance -837 -1150 Weight 79.4 kg 78.2 kg General appearance: PRESENT: no acute distress, cooperative, well-developed Head exam: PRESENT: atraumatic, normocephalic Respiratory exam: PRESENT: prolonged expiratory phas, rales - Right base, symmetrical, unlabored. ABSENT: accessory muscle use, rhonchi, tachypnea, wheezes Cardiovascular exam: PRESENT: RRR, +S1, +S2 GI/Abdominal exam: PRESENT: diminished bowel sounds, soft, tenderness - Around the PD catheter site, other - Peritoneal dialysis catheter in place. ABSENT: distended, guarding Rectal exam: PRESENT: deferred Neurological exam: PRESENT: alert, awake, oriented to person, oriented to place, oriented to time, oriented to situation, CN II-XII grossly intact. ABSENT: altered Psychiatric exam: PRESENT: appropriate affect. ABSENT: agitated, anxious Focused psych exam: ABSENT: delusional, restlessness Skin exam: PRESENT: dry, normal color, warm. ABSENT: rash Results Laboratory Results: 08/11/19 08:07 08/11/19 08:07 08/11/19 08/11/19 08:07 08:07 WBC 8.3 RBC 3.18 L Hgb 10.2 L Hct 29.0 L MCV 91 MCH 32.2 MCHC 35.4 RDW 14.3 H Plt Count 202 Sodium 133.5 L Potassium 4.1 Chloride 96 L Carbon Dioxide 26 Anion Gap 12 BUN 44 H Creatinine 3.43 H Est GFR ( Amer) 16 L Glucose 122 H Calcium 8.2 L 08/08/19 08/08/19 12:15 18:45 Troponin I 0.040 NT-Pro-B Natriuret Pep [id number] H Impressions: Chest X-Ray 08/09/19 06:00 IMPRESSION: Chronic interstitial changes with more focal opacity of the right mid lung suggestive of superimposed pneumonia. Assessment and Plan - Diagnosis (1) Acute and chronic respiratory failure Qualifiers: Respiratory failure complication: hypoxia Qualified Code(s): J96.21 - Acute and chronic respiratory failure with hypoxia Is this a current diagnosis for this admission?: Yes Plan: Still on oxygen. Will assess pulse ox on room air and possibly with ambulation. The patient does have oxygen at home for her CPAP. If necessary we will discharge to home on oxygen and wean from oxygen slowly at home. (2) Chronic obstructive pulmonary disease with acute exacerbation Is this a current diagnosis for this admission?: Yes Plan: Improved. Continue current regimen. Begin to transition to home regimen. (3) End stage renal failure on dialysis Is this a current diagnosis for this admission?: Yes Plan: Due for hemodialysis today. She was supposed to be converting to peritoneal dialysis with her industrial custodian Dr. Wells in [place]. Will defer to Dr. Mariscal with regard to transitioning back to Dr. Wells. (4) Abdominal pain Qualifiers: Abdominal location: lower abdomen, unspecified Qualified Code(s): R10.30 - Lower abdominal pain, unspecified Is this a current diagnosis for this admission?: Yes Plan: bluing oven tender around peritoneal catheter dialysis insertion site (5) HTN (hypertension) Qualifiers: Hypertension type: renovascular hypertension Qualified Code(s): I15.0 - Renovascular hypertension Is this a current diagnosis for this admission?: Yes Plan: Reasonable blood pressure control on furosemide and metoprolol. (6) Coronary artery disease Qualifiers: Coronary Disease-Associated Artery/Lesion type: [place] artery [place] vs. transplanted heart: [place] heart Associated angina: without angina Qualified Code(s): I25.10 - Atherosclerotic heart disease of [place] coronary artery without angina pectoris Is this a current diagnosis for this admission?: Yes Plan: Continue statin therapy, aspirin, metoprolol and furosemide. No evidence of acute coronary syndrome. (7) Hyperlipidemia Qualifiers: Hyperlipidemia type: mixed hyperlipidemia Qualified Code(s): E78.2 - Mixed hyperlipidemia Is this a current diagnosis for this admission?: Yes Plan: Continue statin therapy. (8) Hypothyroidism Qualifiers: Hypothyroidism type: acquired Qualified Code(s): E03.9 - Hypothyroidism, unspecified Is this a current diagnosis for this admission?: Yes Plan: Continue Synthroid and Cytomel. - Time Time Spent with patient: 15-24 minutes Medications reviewed and adjusted accordingly: Yes Anticipated discharge: Home with Homehealth Within: within 48 hours
[2019-08-11] MEDS: PREDNISONE 20 MG TABLET PO SCH (10:48)
--- NOTE | 2019-08-11 13:50 | PDOC PROGRESS REPORT ---
Subjective Progress Note for:: 08/11/19 Reason For Visit: Patient seen today on dialysis. She is undergoing dialysis without any issues at the moment. Vital signs are stable. She has mild abdominal pains where the PD catheter was placed but otherwise doing well. Denies any history of chest pain and her shortness of breath s a whole lot better than when she came. Labs and medications were reviewed. Dialysis orders were reviewed with the treating dialysis nurse. Physical Exam Vital Signs: Temp Pulse Resp BP Pulse Ox 98.3 F 98 27 H 132/77 H 94 08/11/19 08:27 08/11/19 08:27 08/11/19 08:27 08/11/19 08:27 08/11/19 08:27 Intake & Output 08/10/19 08/11/19 08/12/19 06:59 06:59 06:59 Intake Total 0 200 Output Total 837 1350 Balance -837 -1150 Weight 79.4 kg 78.2 kg General appearance: PRESENT: no acute distress Respiratory exam: PRESENT: clear to auscultation ashanti, decreased breath sounds. ABSENT: crackles Cardiovascular exam: PRESENT: +S1, +S2 GI/Abdominal exam: PRESENT: normal bowel sounds, soft, tenderness - She is tender around the exit site of the recently placed PD catheter. However there is no signs of redness or exit site infection.. ABSENT: distended, guarding, organomegaly, rebound Extremities exam: ABSENT: pedal edema Neurological exam: PRESENT: alert, awake, oriented to person, oriented to place Psychiatric exam: PRESENT: appropriate affect Results Laboratory Results: 08/11/19 08:07 08/11/19 08:07 08/11/19 08/11/19 08:07 08:07 WBC 8.3 RBC 3.18 L Hgb 10.2 L Hct 29.0 L MCV 91 MCH 32.2 MCHC 35.4 RDW 14.3 H Plt Count 202 Sodium 133.5 L Potassium 4.1 Chloride 96 L Carbon Dioxide 26 Anion Gap 12 BUN 44 H Creatinine 3.43 H Est GFR ( Amer) 16 L Glucose 122 H Calcium 8.2 L 08/08/19 08/08/19 12:15 18:45 Troponin I 0.040 NT-Pro-B Natriuret Pep [id number] H Impressions: Chest X-Ray 08/09/19 06:00 IMPRESSION: Chronic interstitial changes with more focal opacity of the right mid lung suggestive of superimposed pneumonia. Assessment & Plan - Diagnosis (1) Acute and chronic respiratory failure Qualifiers: Respiratory failure complication: hypoxia Qualified Code(s): J96.21 - Acute and chronic respiratory failure with hypoxia Is this a current diagnosis for this admission?: Yes Plan: Patient clinically and symptoms of presentation are resolved. (2) Chronic obstructive pulmonary disease with acute exacerbation Is this a current diagnosis for this admission?: Yes Plan: Much better. Management as per hospitalist. (3) End stage renal failure on dialysis Is this a current diagnosis for this admission?: Yes Plan: Patient currently undergoing dialysis. Vital signs are stable. Dialysis is be ing supervised to ensure safe and smooth procedure. Plan to remove between 500 cc to a liter of fluid as tolerated. Discussed with the treating dialysis nurse to keep the systolic blood pressures around 120 systolic and to watch fluid removal carefully as avoiding hypotension is paramount.She can be discharged once current admission issues are resolved and she can follow-up with Dr. Wells for conversion from hemodialysis to PD. (4) Anemia in chronic kidney disease Plan: Titrate with erythropoietin. (5) HTN (hypertension) Qualifiers: Hypertension type: renovascular hypertension Qualified Code(s): I15.0 - Renovascular hypertension Is this a current diagnosis for this admission?: Yes Plan: Controlled. (6) History of GI bleed Plan: Currently stable. (7) Subclavian steal syndrome Is this a current diagnosis for this admission?: Yes Plan: Monitor for any symptoms and avoid hypotension.
[2019-08-11] MEDS ORDERED: EPOETIN ALFA-EPBX 5,000 UNITS (ESRD) in SYRINGE IV PRN ×3 (15:30)
[2019-08-11] MEDS: METOPROLOL SUCCINATE 50 MG TAB.SR.24H PO SCH (18:47)
[2019-08-12] MEDS: HEPARIN SOD (PORCINE) 5,000 UNIT/ML 1 ML VIAL SUBCUT SCH ×4 (00:40→22:11)
[2019-08-12] MEDS: ATORVASTATIN CALCIUM 20 MG TABLET PO SCH ×2 (00:40→22:16)
[2019-08-12] MEDS: INSULIN REG, HUMAN 100 UNIT/ML 3 ML VIAL (PYX) SUBCUT SCH ×4 (00:41→17:39)
[2019-08-12] MEDS: IPRATROPIUM/ALBUTEROL 0.5-2.5 MG/3 ML AMPUL NEB SCH ×4 (00:50→23:35)
[2019-08-12] MEDS: LEVOTHYROXINE SODIUM 0.088 MG TABLET PO SCH (06:25)
[2019-08-12] MEDS: LIOTHYRONINE SODIUM 5 MCG TABLET PO SCH (06:25)
[2019-08-12 06:48] LABS: HEMATOCRIT 24.9 % (36.0-47.0); HEMOGLOBIN 8.6 g/dL (12.0-15.5); MEAN CORPUSCULAR HEMOGLOBIN 31.3 pg (27.0-33.4); MEAN CORPUSCULAR HGB CONC 34.7 g/dL (32.0-36.0); MEAN CORPUSCULAR VOLUME 90 fl (80-97); PLATELET COUNT 161 10^3/uL (150-450); RED BLOOD COUNT 2.76 10^6/uL (3.72-5.28); RED CELL DISTRIBUTION WIDTH 14.2 % (11.5-14.0)
[2019-08-12 07:16] LABS: ABSOLUTE LYMPHOCYTES# (MANUAL) 0.2 10^3/uL (0.5-4.7); BASOPHILS % (MANUAL) 0 % (0-2); EOSINOPHILS % (MANUAL) 2 % (0-6); LYMPHOCYTES % (MANUAL) 4 % (13-45); MONOCYTES % (MANUAL) 0 % (3-13); SEGMENTED NEUTROPHILS % (MAN) 94 % (42-78); TOTAL CELLS COUNTED 100
[2019-08-12 07:18] LABS: ANISOCYTOSIS SLIGHT; OVALOCYTES SLIGHT; PLATELET COMMENT ADEQUATE; POIKILOCYTOSIS SLIGHT; TEAR DROP CELLS SLIGHT
[2019-08-12] MEDS: FUROSEMIDE 20 MG TABLET PO SCH (08:46)
[2019-08-12] MEDS: PANTOPRAZOLE SODIUM 40 MG TABLET.DR PO SCH (08:46)
[2019-08-12 09:51] LABS: A TYPE INFLUENZA AG NEGATIVE (NEGATIVE); B INFLUENZA AG NEGATIVE (NEGATIVE)
[2019-08-12] MEDS: ASPIRIN 81 MG TABLET, ENT COATED PO SCH (10:51)
[2019-08-12] MEDS: CHOLECALCIFEROL (D3) 1,000 UNIT (25 MCG) TABLET PO SCH (10:51)
[2019-08-12] MEDS: METHOCARBAMOL 750 MG TABLET PO SCH (10:51)
[2019-08-12] MEDS: PREDNISONE 20 MG TABLET PO SCH (10:51)
[2019-08-12] MEDS: UMECLIDINIUM BROMIDE 62.5 MCG/DOSE IH SCH (10:52)
[2019-08-12] MEDS: FLUTICASONE/VILANTEROL 200-25 MCG/DOSE IH SCH (10:52)
--- NOTE | 2019-08-12 12:43 | PDOC PROGRESS REPORT ---
Subjective Progress Note for:: 08/12/19 Subjective:: I was called earlier by the nurse. The patient is feeling poorly today. She in fact has a more congested cough and requires more oxygen. She definitely has declined from yesterday. Reason For Visit: ACUTE ON CHRONIC RESPIRATORY FAILURE,ESRD Physical Exam Vital Signs: Temp Pulse Resp BP Pulse Ox 99.6 F 88 22 H 135/76 H 88 L 08/11/19 23:55 08/12/19 08:49 08/12/19 08:49 08/11/19 23:55 08/12/19 08:49 Intake & Output 08/11/19 08/12/19 08/13/19 06:59 06:59 06:59 Intake Total 200 1135 Output Total 1350 850 Balance -1150 285 Weight 78.2 kg 77 kg General appearance: PRESENT: cooperative, mild distress, well-developed Head exam: PRESENT: atraumatic, normocephalic Eye exam: PRESENT: conjunctiva pale. ABSENT: scleral icterus Mouth exam: PRESENT: moist, tongue midline Respiratory exam: PRESENT: rhonchi, symmetrical, unlabored. ABSENT: tachypnea, wheezes Cardiovascular exam: PRESENT: RRR, +S1, +S2 GI/Abdominal exam: PRESENT: normal bowel sounds, soft. ABSENT: distended, tenderness Rectal exam: PRESENT: deferred Neurological exam: PRESENT: alert, awake, oriented to person, oriented to place, oriented to time, oriented to situation, CN II-XII grossly intact Psychiatric exam: PRESENT: anxious - Somewhat anxious about her current condition. ABSENT: agitated Results Laboratory Results: 08/12/19 06:16 08/11/19 08:07 08/12/19 06:16 WBC 4.0 RBC 2.76 L Hgb 8.6 L Hct 24.9 L MCV 90 MCH 31.3 MCHC 34.7 RDW 14.2 H Plt Count 161 Seg Neutrophils % Not Reportable 08/08/19 08/08/19 12:15 18:45 Troponin I 0.040 NT-Pro-B Natriuret Pep [id number] H Impressions: Chest X-Ray 08/09/19 06:00 IMPRESSION: Chronic interstitial changes with more focal opacity of the right mid lung suggestive of superimposed pneumonia. Assessment and Plan - Diagnosis (1) Acute and chronic respiratory failure Qualifiers: Respiratory failure complication: hypoxia Qualified Code(s): J96.21 - Acute and chronic respiratory failure with hypoxia Is this a current diagnosis for this admission?: Yes Plan: The patient currently requires 6 L of oxygen by nasal cannula. This is much more than her baseline. Her lungs sound very coarse. As noted below I believe there is an infection present. (2) Chronic obstructive pulmonary disease with acute exacerbation Is this a current diagnosis for this admission?: Yes Plan: Continue current regimen with the addition of antibiotic therapy as outlined below (3) End stage renal failure on dialysis Is this a current diagnosis for this admission?: Yes Plan: She states that she had chest discomfort during the entirety of her hemodialysis treatment yesterday. They only took off 200 mL of fluid yesterday as they are trying to keep her systolic blood pressure above a predetermined baseline per the drapery seamstress. (4) Abdominal pain Qualifiers: Abdominal location: lower abdomen, unspecified Qualified Code(s): R10.30 - Lower abdominal pain, unspecified Is this a current diagnosis for this admission?: Yes Plan: color depositing machine tender around peritoneal catheter dialysis insertion site (5) HTN (hypertension) Qualifiers: Hypertension type: renovascular hypertension Qualified Code(s): I15.0 - Renovascular hypertension Is this a current diagnosis for this admission?: Yes Plan: Continue current regimen. (6) Coronary artery disease Qualifiers: Coronary Disease-Associated Artery/Lesion type: [place] artery [place] vs. transplanted heart: [place] heart Associated angina: without angina Qualified Code(s): I25.10 - Atherosclerotic heart disease of [place] coronary artery without angina pectoris Is this a current diagnosis for this admission?: Yes Plan: The patient did have some chest discomfort during hemodialysis yesterday. She is not exhibiting any acute coronary syndrome symptoms at this time. Continue current regimen. (7) Hyperlipidemia Qualifiers: Hyperlipidemia type: mixed hyperlipidemia Qualified Code(s): E78.2 - Mixed hyperlipidemia Is this a current diagnosis for this admission?: Yes Plan: Continue statin therapy. (8) Hypothyroidism Qualifiers: Hypothyroidism type: acquired Qualified Code(s): E03.9 - Hypothyroidism, unspecified Is this a current diagnosis for this admission?: Yes Plan: Continue Synthroid and Cytomel. (9) Bilateral pneumonia Qualifiers: Pneumonia type: due to unspecified organism Lung location: unspecified part of lung Qualified Code(s): J18.9 - Pneumonia, unspecified organism Is this a current diagnosis for this admission?: Yes Plan: The patient clinically sounds worse today. I repeated a chest x-ray and it shows bilateral infiltrates. She spiked a temperature and so pneumonia is the most likely pathology. She has been in the hospital for several days and so she might have a hospital-acquired pneumonia but she certainly could have picked up something prior to her admission. She does report that her is currently hospitalized with pneumonia. She had hemodialysis today. Only 200 mL were taken off and so there could be a fluid component but this should not give you a fever. Levofloxacin, dosed for her renal function, has been started. - Time Time Spent with patient: 15-24 minutes Medications reviewed and adjusted accordingly: Yes Anticipated discharge: Home
[2019-08-12] MEDS ORDERED: LEVOFLOXACIN 750 MG/D5W RTU 750 MG/150 ML RTUPB IV SCH (14:00)
--- NOTE | 2019-08-12 14:10 | RADIOLOGY REPORT (SQ) ---
EXAM DESCRIPTION: CHEST SINGLE VIEW COMPLETED DATE/TIME: 08/12/2019 1:17 pm REASON FOR STUDY: inc sob r/o pneumonia COMPARISON: AP chest 08/09/2019, 08/08/2019, 06/09/2019, 02/12/2019 EXAM PARAMETERS: NUMBER OF VIEWS: One view. TECHNIQUE: Single frontal radiographic view of the chest acquired. RADIATION DOSE: NA LIMITATIONS: None. FINDINGS: LUNGS AND PLEURA: Asymmetric diffuse alveolar and interstitial infiltrates right greater t [place] left. These are more prominent than on 08/09/2019, findings are worrisome for asymmetric pulmonary edema versus pneumonia. Chronic consolidation left lateral costophrenic sulcus. No pleural effusion. No pneumothorax. MEDIASTINUM AND HILAR STRUCTURES: No masses. Contour normal. HEART AND VASCULAR STRUCTURES: No cardiomegaly BONES: No acute findings. HARDWARE: Loop recorder anterior left chest OTHER: No other significant finding. IMPRESSION: Increasing bilateral alveolar and interstitial infiltrates right greater than left worri some for pulmonary edema. Pneumonia could mimic this appearance TECHNICAL DOCUMENTATION: JOB ID: [id number] [employer]- All Rights Reserved Reading location - IP/workstation name: [email or web address]
[2019-08-12] MEDS: ACETAMINOPHEN 325 MG TABLET PO PRN (15:54)
[2019-08-12] MEDS: METOPROLOL SUCCINATE 50 MG TAB.SR.24H PO SCH (18:07)
[2019-08-13] MEDS: INSULIN REG, HUMAN 100 UNIT/ML 3 ML VIAL (PYX) SUBCUT SCH ×4 (01:03→20:48)
[2019-08-13] MEDS ORDERED: EPOETIN ALFA-EPBX 2,000 UNIT, EPOETIN ALFA-EPBX 3,000 UNIT, EPOETIN ALFA-EPBX 20,000 UN... IV PRN ×4 (05:00)
[2019-08-13] MEDS: LEVOTHYROXINE SODIUM 0.088 MG TABLET PO SCH (06:19)
[2019-08-13] MEDS: LIOTHYRONINE SODIUM 5 MCG TABLET PO SCH (06:20)
[2019-08-13 06:29] LABS: HEMATOCRIT 26.4 % (36.0-47.0); HEMOGLOBIN 9.1 g/dL (12.0-15.5); MEAN CORPUSCULAR HEMOGLOBIN 30.9 pg (27.0-33.4); MEAN CORPUSCULAR HGB CONC 34.3 g/dL (32.0-36.0); MEAN CORPUSCULAR VOLUME 90 fl (80-97); PLATELET COUNT 164 10^3/uL (150-450); RED BLOOD COUNT 2.93 10^6/uL (3.72-5.28); RED CELL DISTRIBUTION WIDTH 14.4 % (11.5-14.0); WHITE BLOOD COUNT 3.4 10^3/uL (4.0-10.5)
[2019-08-13 06:31] LABS: ALBUMIN 2.3 g/dL (3.5-5.0); ANION GAP 10 (5-19); BLOOD UREA NITROGEN 39 mg/dL (7-20); CALCIUM 7.7 mg/dL (8.4-10.2); CARBON DIOXIDE 29 mmol/L (22-30); CHLORIDE 96 mmol/L (98-107); GLUCOSE 101 mg/dL (75-110); PHOSPHORUS 4.3 mg/dL (2.5-4.5)
[2019-08-13] MEDS: HEPARIN SOD (PORCINE) 5,000 UNIT/ML 1 ML VIAL SUBCUT SCH ×3 (06:57→21:04)
[2019-08-13 07:23] LABS: ABSOLUTE LYMPHOCYTES# (MANUAL) 0.2 10^3/uL (0.5-4.7); ABSOLUTE MONOCYTES # (MANUAL) 0.1 10^3/uL (0.1-1.4); BASOPHILS % (MANUAL) 0 % (0-2); EOSINOPHILS % (MANUAL) 0 % (0-6); LYMPHOCYTES % (MANUAL) 7 % (13-45); MONOCYTES % (MANUAL) 2 % (3-13); SEGMENTED NEUTROPHILS % (MAN) 91 % (42-78); TOTAL CELLS COUNTED 100
[2019-08-13 07:24] LABS: ANISOCYTOSIS SLIGHT; OVALOCYTES SLIGHT; PLATELET COMMENT ADEQUATE
[2019-08-13] MEDS: FUROSEMIDE 20 MG TABLET PO SCH (08:21)
[2019-08-13] MEDS: IPRATROPIUM/ALBUTEROL 0.5-2.5 MG/3 ML AMPUL NEB SCH ×2 (09:10→16:12)
[2019-08-13] MEDS ORDERED: FUROSEMIDE INJ/PF 20 MG/2 ML SDV IV SCH ×2 (14:00→18:00)
[2019-08-13] MEDS: UMECLIDINIUM BROMIDE 62.5 MCG/DOSE IH SCH (14:36)
[2019-08-13] MEDS: FLUTICASONE/VILANTEROL 200-25 MCG/DOSE IH SCH (14:37)
[2019-08-13] MEDS: ACETAMINOPHEN 325 MG TABLET PO PRN (16:01)
--- NOTE | 2019-08-13 16:59 | PDOC PROGRESS REPORT ---
Subjective Progress Note for:: 08/13/19 Reason For Visit: Patient was seen on dialysis today. She has developed respiratory failure and is on oxygen. She denies any history of chest pain, fever or chills. Labs and medications were reviewed. Dialysis orders were reviewed with the treating dialysis nurse. Physical Exam Vital Signs: Temp Pulse Resp BP Pulse Ox 99.0 F 102 H 20 140/71 H 90 L 08/13/19 11:23 08/13/19 16:17 08/13/19 16:17 08/13/19 11:23 08/13/19 16:17 Intake & Output 08/12/19 08/13/19 08/14/19 06:59 06:59 06:59 Intake Total 1135 480 240 Output Total 850 300 Balance 285 180 240 Weight 77 kg 78 kg General appearance: PRESENT: mild distress Respiratory exam: PRESENT: decreased breath sounds - Right lungs where she has also got scattered rhonchi., rhonchi - Mainly in the right lungs.. ABSENT: clear to auscultation ash[place], crackles Cardiovascular exam: PRESENT: +S1, +S2 GI/Abdominal exam: PRESENT: normal bowel sounds, soft, tenderness - She is tender around the exit site of the recently placed PD catheter. However there is no signs of redness or exit site infection.. ABSENT: distended, guarding, organomegaly, rebound Extremities exam: ABSENT: pedal edema Neurological exam: PRESENT: alert, awake, oriented to person, oriented to place Psychiatric exam: PRESENT: anxious Skin exam: ABSENT: erythema, mottled, rash Results Laboratory Results: 08/13/19 05:49 08/13/19 05:49 08/13/19 08/13/19 05:49 05:49 WBC 3.4 L RBC 2.93 L Hgb 9.1 L Hct 26.4 L MCV 90 MCH 30.9 MCHC 34.3 RDW 14.4 H Plt Count 164 Seg Neutrophils % Not Reportable Sodium 135.1 L Potassium 4.0 Chloride 96 L Carbon Dioxide 29 Anion Gap 10 BUN 39 H Creatinine 3.50 H Est GFR ( Amer) 15 L Glucose 101 Calcium 7.7 L Phosphorus 4.3 Magnesium 2.2 Albumin 2.3 L 08/08/19 13:08 Blood Blood Culture - Final NO GROWTH IN 5 DAYS 08/08/19 12:15 Blood Blood Culture - Final NO GROWTH IN 5 DAYS 08/08/19 08/08/19 12:15 18:45 Troponin I 0.040 NT-Pro-B Natriuret Pep [id number] H Impressions: Chest X-Ray 08/12/19 12:40 IMPRESSION: Increasing bilateral alveolar and interstitial infiltrates right greater than left worrisome for pulmonary edema. Pneumonia could mimic this appearance Assessment & Plan - Diagnosis (1) Acute and chronic respiratory failure Qualifiers: Respiratory failure complication: hypoxia Qualified Code(s): J96.21 - Acute and chronic respiratory failure with hypoxia Is this a current diagnosis for this admission?: Yes Plan: Patient had gotten better but now seems to be deteriorating. She might be developing a hospital-acquired pneumonia. Will order chest x-ray. Discussed with the treating nurse Flavio on the floor.. (2) Chronic obstructive pulmonary disease with acute exacerbation Is this a current diagnosis for this admission?: Yes Plan: She came in as such but now she seems to be decompensating. Management as per hospitalist. (3) End stage renal failure on dialysis Is this a current diagnosis for this admission?: Yes Plan: Patient currently undergoing dialysis. Vital signs are stable. Dialysis is being supervised to ensure safe and smooth procedure. Plan to remove between 500 cc to a liter of fluid as tolerated. Discussed with the treating dialysis nurse to keep the systolic blood pressures around 120 systolic and to watch fluid removal carefully as avoiding hypotension is paramount. (4) Anemia in chronic kidney disease Plan: Titrate with erythropoietin. (5) HTN (hypertension) Qualifiers: Hypertension type: renovascular hypertension Qualified Code(s): I15.0 - Renovascular hypertension Is this a current diagnosis for this admission?: Yes Plan: Controlled. (6) History of GI bleed Plan: Currently stable. (7) Subclavian steal syndrome Is this a current diagnosis for this admission?: Yes Plan: Monitor for any symptoms and avoid hypotension. (8) History of CVA (cerebrovascular accident) Plan: Currently stable.
[2019-08-13] MEDS ORDERED: METOPROLOL TARTRATE PF/INJ 5 MG/5 ML SDV IV ONE ×2 (17:57→19:00)
[2019-08-13] MEDS ORDERED: CEFEPIME 1 GM/D5W RTU 1 GM/50 ML RTUPB IV ONE (18:29)
[2019-08-13] MEDS: CEFEPIME 1 GM/D5W RTU 1 GM/50 ML RTUPB IV SCH (18:30)
--- NOTE | 2019-08-13 18:36 | PDOC CRITICAL CARE PROG REPORT ---
General Date:: 08/13/19 Resuscitation Status: Full Code Events in the past 12 to 24 Hours:: Worsening respiratory status despite HD Review of systems relevant to events:: Respiratory, renal Reason for ICU Addmission:: acute on chronic respiratory failure, ESRD. Need for bipap and possible intubation. - Medications: Medications reviewed and adjusted accordingly: Yes Vasopressors:: None Sedation:: None Physical Exam Vital Signs: Temp Pulse Resp BP Pulse Ox 99.0 F 102 H 20 140/71 H 90 L 08/13/19 11:23 08/13/19 16:17 08/13/19 16:17 08/13/19 11:23 08/13/19 16:17 Intake & Output 08/12/19 08/13/19 08/14/19 06:59 06:59 06:59 Intake Total 1135 480 240 Output Total 850 300 Balance 285 180 240 Weight 77 kg 78 kg Weight/Height Weight 78 kg Height 5 ft 2 in General appearance: PRESENT: cooperative, hard of hearing, mild distress Head exam: PRESENT: atraumatic, normocephalic Eye exam: PRESENT: conjunctiva pink, EOMI, PERRLA. ABSENT: scleral icterus Ear exam: PRESENT: normal external ear exam Neck exam: PRESENT: other - No JVD sitting up or lying down Respiratory exam: PRESENT: accessory muscle use, decreased breath sounds, retraction, tachypnea Cardiovascular exam: PRESENT: tachycardia Vascular exam: PRESENT: normal capillary refill GI/Abdominal exam: PRESENT: normal bowel sounds, soft. ABSENT: distended, guarding, mass, organolmegaly, rebound, tenderness Rectal exam: PRESENT: deferred Extremities exam: PRESENT: pedal edema, +2 edema Musculoskeletal exam: PRESENT: tenderness Neurological exam: PRESENT: alert, awake, oriented to person, oriented to place, oriented to time, oriented to situation, CN II-XII grossly intact. ABSENT: motor sensory deficit Skin exam: PRESENT: dry, intact, warm. ABSENT: cyanosis, rash Laboratory/Radiographs Laboratory Results: 08/13/19 05:49 08/13/19 05:49 08/13/19 08/13/19 05:49 05:49 WBC 3.4 L RBC 2.93 L Hgb 9.1 L Hct 26.4 L MCV 90 MCH 30.9 MCHC 34.3 RDW 14.4 H Plt Count 164 Seg Neutrophils % Not Reportable Sodium 135.1 L Potassium 4.0 Chloride 96 L Carbon Dioxide 29 Anion Gap 10 BUN 39 H Creatinine 3.50 H Est GFR ( Amer) 15 L Glucose 101 Calcium 7.7 L Phosphorus 4.3 Magnesium 2.2 Albumin 2.3 L 08/08/19 13:08 Blood Blood Culture - Final NO GROWTH IN 5 DAYS 08/08/19 12:15 Blood Blood Culture - Final NO GROWTH IN 5 DAYS 08/08/19 08/08/19 12:15 18:45 Troponin I 0.040 NT-Pro-B Natriuret Pep [id number] H Impressions: Worsening respiratory status from PNA or aspiration. Doubt volume overload. All labs, radiographs, diagnostic studies and EKGs were personally reviewed: Yes In addition, reports of radiographic and diagnostic studies were read: Yes Assessment and Plan - Diagnosis (1) Chronic obstructive pulmonary disease with acute exacerbation Is this a current diagnosis for this admission?: Yes Plan: Continue steroids, nebulizers. No wheezing (2) End stage renal failure on dialysis Is this a current diagnosis for this admission?: Yes Plan: I laid her flat and she commented that her breathing was a bit better, arguing strongly against volume overload. I do not believe HD or CVVHD will help this situation. Continue renal plan unchanged. Her bp is in the 90s and we will treat with albumin. 750 cc off in HD with some hypotension. (3) Respiratory distress determined by examination Is this a current diagnosis for this admission?: Yes Plan: She may need intubation. For now we will temporize with NT suctioning. Critical Time Critical Time (minutes): 35 Level of Care: IMCU Anticipated discharge: SNF Within: Other - Too soon to tell. -: 1. The care of a critical patient is a dynamic process. This note is a territory sales representative synopsis but static in nature. The timeframe for treatments given in order is not necessarily the actual time these treatments may have been done. 2. This patient requires critical care secondary to ongoing requirements for therapy not offered or safe outside the critical care environment. Transfer to a lower level of care will result in altered life or limb morbidity and mortality. 3. Multidisciplinary rounds completed. 4. ABCDE bundle addressed.
[2019-08-13] MEDS ORDERED: ACETYLCYSTEINE 10% NEB 400 MG/4 ML VIAL NEB ONE (18:53)
--- NOTE | 2019-08-13 18:58 | PDOC PROGRESS REPORT ---
Subjective Progress Note for:: 08/13/19 Subjective:: 08/13/2019. Was noted this morning to be in respiratory distress, with crackles on physical examination, started on IV cefepime to cover for possible hospital- acquired pneumonia, after hemodialysis patient was noted to be tachycardic and hypotensive, saturating WNL on BiPAP and high flow, consulted slip mixer for possible transfer to ICU, plan is to start on empiric IV antibiotics, tracheal suctioning and IV albumin if no improvement will be transferred to ICU for possible intubation. Reason For Visit: ACUTE ON CHRONIC RESPIRATORY FAILURE,ESRD Physical Exam Vital Signs: Temp Pulse Resp BP Pulse Ox 99.0 F 102 H 20 140/71 H 90 L 08/13/19 11:23 08/13/19 16:17 08/13/19 16:17 08/13/19 11:23 08/13/19 16:17 Intake & Output 08/12/19 08/13/19 08/14/19 06:59 06:59 06:59 Intake Total 1135 480 240 Output Total 850 300 Balance 285 180 240 Weight 77 kg 78 kg General appearance: PRESENT: mild distress Head exam: PRESENT: atraumatic, normocephalic Respiratory exam: PRESENT: crackles, prolonged expiratory phas. ABSENT: rales, rhonchi, wheezes Cardiovascular exam: PRESENT: RRR. ABSENT: diastolic murmur, rubs, systolic murmur GI/Abdominal exam: PRESENT: normal bowel sounds, soft. ABSENT: distended, guard ing, mass, organolmegaly, rebound, tenderness Neurological exam: PRESENT: alert, awake, oriented to person, oriented to place, oriented to time, oriented to situation, CN II-XII grossly intact. ABSENT: motor sensory deficit Results Laboratory Results: 08/13/19 05:49 08/13/19 05:49 08/13/19 08/13/19 05:49 05:49 WBC 3.4 L RBC 2.93 L Hgb 9.1 L Hct 26.4 L MCV 90 MCH 30.9 MCHC 34.3 RDW 14.4 H Plt Count 164 Seg Neutrophils % Not Reportable Sodium 135.1 L Potassium 4.0 Chloride 96 L Carbon Dioxide 29 Anion Gap 10 BUN 39 H Creatinine 3.50 H Est GFR ( Amer) 15 L Glucose 101 Calcium 7.7 L Phosphorus 4.3 Magnesium 2.2 Albumin 2.3 L 08/08/19 13:08 Blood Blood Culture - Final NO GROWTH IN 5 DAYS 08/08/19 12:15 Blood Blood Culture - Final NO GROWTH IN 5 DAYS 08/08/19 08/08/19 12:15 18:45 Troponin I 0.040 NT-Pro-B Natriuret Pep [id number] H Assessment and Plan - Diagnosis (1) Acute and chronic respiratory failure Qualifiers: Respiratory failure complication: hypoxia Qualified Code(s): J96.21 - Acute and chronic respiratory failure with hypoxia Is this a current diagnosis for this admission?: Yes Plan: Multifactorial. Likely due to COPD exacerbation complicated by end-stage renal disease and possibly developing healthcare associated pneumonia. We will start empiric broad-spectrum IV antibiotics. Flutter valve, incentive spirometry, DuoNeb, IV steroids, pulmonary toileting. (2) Chronic obstructive pulmonary disease with acute exacerbation Is this a current diagnosis for this admission?: Yes Plan: Continue steroids, nebulizers. No wheezing (3) End stage renal failure on dialysis Is this a current diagnosis for this admission?: Yes Plan: Does not seem to be volume overloaded. Status post hemodialysis. 750 mL removed. Monitor volume status and electrolyte replace as needed. Nephrology on board. (4) Coronary artery disease Qualifiers: Coronary Disease-Associated Artery/Lesion type: [place] artery [place] vs. transplanted heart: [place] heart Associated angina: without angina Qualified Code(s): I25.10 - Atherosclerotic heart disease of [place] coronary artery without angina pectoris Is this a current diagnosis for this admission?: Yes Plan: The patient did have some chest discomfort during hemodialysis yesterday. She is not exhibiting any acute coronary syndrome symptoms at this time. Continue current regimen. (5) HTN (hypertension) Qualifiers: Hypertension type: renovascular hypertension Qualified Code(s): I15.0 - Renovascular hypertension Is this a current diagnosis for this admission?: Yes Plan: Continue current regimen.
[2019-08-13] MEDS ORDERED: ACETYLCYSTEINE 20% SOLN 800 MG/4 ML VIAL.NEB ONE (19:18)
[2019-08-13] MEDS: ACETYLCYSTEINE 20% SOLN 800 MG/4 ML VIAL.NEB NEB SCH (19:32)
[2019-08-13] MEDS: ALBUTEROL SULFATE 0.083% NEB 2.5 MG/3 ML AMPUL NEB SCH (19:32)
[2019-08-13] MEDS: IPRATROPIUM BROMIDE 0.02% NEB 0.5 MG/2.5 ML AMPUL NEB SCH (19:32)
[2019-08-13] MEDS: ALBUMIN HUMAN 12.5 GM/50 ML RTUINJ IV SCH ×4 (20:28→23:03)
[2019-08-13] MEDS: PANTOPRAZOLE SODIUM 40 MG TABLET.DR PO SCH (20:47)
[2019-08-13] MEDS: PREDNISONE 20 MG TABLET PO SCH (20:47)
[2019-08-13] MEDS: METHOCARBAMOL 750 MG TABLET PO SCH (20:47)
[2019-08-13] MEDS: ASPIRIN 81 MG TABLET, ENT COATED PO SCH (20:47)
[2019-08-13] MEDS: CHOLECALCIFEROL (D3) 1,000 UNIT (25 MCG) TABLET PO SCH (20:47)
[2019-08-13] MEDS: METOPROLOL SUCCINATE 50 MG TAB.SR.24H PO SCH (20:54)
[2019-08-13] MEDS: ATORVASTATIN CALCIUM 20 MG TABLET PO SCH (21:04)
[2019-08-13] MEDS ORDERED: METOPROLOL SUCCINATE 50 MG TAB.SR.24H PO ONE (22:00)
[2019-08-13] MEDS ORDERED: ASPIRIN 81 MG TABLET, ENT COATED PO ONE (22:00)
[2019-08-13] MEDS ORDERED: METHOCARBAMOL 750 MG TABLET PO ONE (22:00)
[2019-08-13] MEDS ORDERED: METHYLPREDNISOLONE INJ 40 MG/1 ML SDV IV SCH (22:00)
[2019-08-13] MEDS ORDERED: PANTOPRAZOLE SODIUM 40 MG TABLET.DR PO ONE (22:00)
[2019-08-13] MEDS ORDERED: CHOLECALCIFEROL (D3) 1,000 UNIT (25 MCG) TABLET PO ONE (22:00)
[2019-08-13] MEDS ORDERED: PREDNISONE 20 MG TABLET PO ONE (22:00)
[2019-08-13] MEDS ORDERED: ALBUMIN HUMAN 500 ML IV ONE ×2 (23:26→23:59)
[2019-08-14] MEDS: ALBUTEROL SULFATE 0.083% NEB 2.5 MG/3 ML AMPUL NEB SCH ×4 (01:47→19:58)
[2019-08-14] MEDS: IPRATROPIUM BROMIDE 0.02% NEB 0.5 MG/2.5 ML AMPUL NEB SCH ×4 (01:47→19:58)
[2019-08-14] MEDS ORDERED: METOPROLOL TARTRATE PF/INJ 5 MG/5 ML SDV IV ONE ×5 (05:14→07:17)
[2019-08-14] MEDS: LEVOTHYROXINE SODIUM 0.088 MG TABLET PO SCH (05:24)
[2019-08-14] MEDS: HEPARIN SOD (PORCINE) 5,000 UNIT/ML 1 ML VIAL SUBCUT SCH ×3 (05:24→21:25)
[2019-08-14] MEDS: LIOTHYRONINE SODIUM 5 MCG TABLET PO SCH (05:24)
[2019-08-14 07:19] LABS: HEMATOCRIT 24.1 % (36.0-47.0); HEMOGLOBIN 8.1 g/dL (12.0-15.5)
[2019-08-14 07:21] LABS: MEAN CORPUSCULAR HEMOGLOBIN 30.7 pg (27.0-33.4); MEAN CORPUSCULAR HGB CONC 33.7 g/dL (32.0-36.0); MEAN CORPUSCULAR VOLUME 91 fl (80-97); PLATELET COUNT 149 10^3/uL (150-450); RED BLOOD COUNT 2.64 10^6/uL (3.72-5.28); RED CELL DISTRIBUTION WIDTH 14.7 % (11.5-14.0); WHITE BLOOD COUNT 2.1 10^3/uL (4.0-10.5)
[2019-08-14 07:28] LABS: ALBUMIN 3.3 g/dL (3.5-5.0); ALKALINE PHOSPHATASE 58 U/L (38-126); ANION GAP 11 (5-19); ASPARTATE AMINO TRANSFERASE 39 U/L (14-36); BILIRUBIN,DIRECT 0.5 mg/dL (0.0-0.4); BILIRUBIN,TOTAL 0.9 mg/dL (0.2-1.3); BLOOD UREA NITROGEN 34 mg/dL (7-20); CALCIUM 8.2 mg/dL (8.4-10.2); CARBON DIOXIDE 28 mmol/L (22-30); CHLORIDE 99 mmol/L (98-107); GLUCOSE 109 mg/dL (75-110); POTASSIUM 4.1 mmol/L (3.6-5.0); TOTAL PROTEIN 5.6 g/dL (6.3-8.2)
[2019-08-14] MEDS ORDERED: INSULIN REG, HUMAN 100 UNIT/ML 3 ML VIAL (PYX) SUBCUT SCH (08:00)
[2019-08-14] MEDS: ACETYLCYSTEINE 20% SOLN 800 MG/4 ML VIAL.NEB NEB SCH ×2 (08:04→19:58)
--- NOTE | 2019-08-14 08:33 | Progress Note ---
Provider Note Provider Note: Date/Time of initial follow-up encounter: 08/13/2019 20:20 pm Critical care follow-up note: Checked on Mrs. Parham at 20:20 p.m. assess respiratory status, heart rate, and blood pressure. Respiratory rate in the low 20s, unlabored, fine crackles bibasilar with a very faint left lower lobe wheeze. Heart rate 90 and normal sinus rhythm; however, RN called to my attention that the patient will intermittently get tachycardic and come right back down to normal sinus rhythm with a rate below 100 which I observed on the telemetry alarms. Patient has not yet received the albumin ordered for 8:00 pm for low blood pressure, but the nurse is about to administer. Discussed with nurse to notify me of the patient's blood pressure immediately after the albumin is bolused. If blood pressure remains low, will return with ultrasound machine to evaluate cardiac function and volume status via IVC. Patient is in no apparent distress at this time and okay to stay in her current room. Does not need intubation at this time. 22:56 pm: RN notified me that BP 84/43 MAP 57 after 25% Albumin administration. Went to bedside with ultrasound finding that RV is somewhat dilated though both ventricles remain with adequate contractility; IVC is 100% collapsible with changes in intrathoracic pressure during respiration. Administer 500 mL of 5% Albumin at this time for which her BP improved. 05:50 am: RN notified me BP increased to 118/77 with MAP 90 after 5 mg Lopressor IV; HR remains 114-129. 5mg more of IV Lopressor ordered at this time. 06:49 am: 2nd dose of IV Lopressor still has not been administered; discussed with RN to give at this time. 07:57 am: RN notified me that patient's HR now 90 and SBP >120 after total of 3 doses of IV Lopressor. Will un-hold Toprol off MAR at this time, which is not due until this evening. Recommendations for Hospitalist on 08/14/2019: -transthoracic echocardiogram to evaluate pulmonary hypertension and dilated right ventricle; may need pulmonary artery afterload reduction -continue with BIPAP therapy prn -may need Toprol this AM for rate control of A-fib Patient has no ICU indication at this time and may remain on the current floor with telemetry from ICU team perspective. ICU team is signing off at this time deferring all ongoing care to Hospitalist. If there is a change in patient condition with concern for ICU needs, please call us for re-evaluation. Discussed with Dr Ortega, Acquisition Specialist.
--- NOTE | 2019-08-14 09:05 | RADIOLOGY REPORT (SQ) ---
EXAM DESCRIPTION: CHEST SINGLE VIEW COMPLETED DATE/TIME: 08/13/2019 6:19 pm REASON FOR STUDY: evaluate possible pneumonia development COMPARISON: 08/12/2019 TECHNIQUE: Single frontal radiographic view of the chest acquired. NUMBER OF VIEWS: One view. LIMITATIONS: None. FINDINGS: LUNGS AND PLEURA: No pneumothorax. Slightly increased interstitial prominence, greater on the left. Persistent confluent airspace-nodular opacities in the right mid lung. Slightly increase d left pleural effusion. MEDIASTINUM AND HILAR STRUCTURES: Stable. HEART AND VASCULAR STRUCTURES: Stable. BONES: No acute findings. HARDWARE: None in the chest. OTHER: No other significant finding. IMPRESSION: Slightly increased interstitial prominence, greater on the left. Persistent confluent a irspace-nodular opacities in the right mid lung. Slightly increased left pleural effusion. TECHNICAL DOCUMENTATION: JOB ID: [id number] [id number] 2010 [employer]- All Rights Reserved Reading location - IP/workstation name: [email or web address]
--- NOTE | 2019-08-14 09:43 | PDOC PROGRESS REPORT ---
Subjective Progress Note for:: 08/14/19 Subjective:: 08/13/2019. Was noted this morning to be in respiratory distress, with crackles on physical examination, started on IV cefepime to cover for possible hospital- acquired pneumonia, after hemodialysis patient was noted to be tachycardic and hypotensive, saturating WNL on BiPAP and high flow, consulted aerodynamics teacher for possible transfer to ICU, plan is to start on empiric IV antibiotics, tracheal suctioning and IV albumin if no improvement will be transferred to ICU for possible intubation. 08/14/2019. Overnight patient was noted to be developing respiratory distress with tachycardia and hypotension. Projection Engineer consulted, transfer to the unit was held and patient was given several doses of IV albumin. Overnight BP improved, and respiratory symptoms also improved mildly however patient was noted to have developed A. fib RVR this morning and was given several doses of metoprolol which controlled her rate however still in A. fib. This morning patient is on BiPAP does not seem to be in severe distress, stating that she is feeling better compared to yesterday, complaining of dry mouth, denies any chest pain, nausea, vomiting, diarrhea, constipation or any urinary symptoms. Reason For Visit: ACUTE ON CHRONIC RESPIRATORY FAILURE,ESRD Physical Exam Vital Signs: Temp Pulse Resp BP Pulse Ox 97.9 F 119 H 26 H 118/77 92 08/14/19 03:59 08/14/19 07:00 08/14/19 04:22 08/14/19 05:37 08/14/19 03:59 Intake & Output 08/13/19 08/14/19 08/15/19 06:59 06:59 06:59 Intake Total 480 1118 Output Total 300 825 Balance 180 293 Weight 78 kg 78.5 kg General appearance: PRESENT: mild distress, obese Head exam: PRESENT: atraumatic, normocephalic Respiratory exam: PRESENT: crackles, wheezes. ABSENT: rales, rhonchi Cardiovascular exam: PRESENT: irregular rhythm, RRR. ABSENT: diastolic murmur, rubs, systolic murmur GI/Abdominal exam: PRESENT: normal bowel sounds, soft. ABSENT: distended, guarding, mass, organolmegaly, rebound, tenderness Neurological exam: PRESENT: alert, awake, oriented to person, oriented to place, oriented to time, oriented to situation, CN II-XII grossly intact. ABSENT: motor sensory deficit Results Laboratory Results: 08/14/19 05:05 08/14/19 05:05 08/14/19 08/14/19 05:05 05:05 WBC 2.1 L D RBC 2.64 L Hgb 8.1 L Hct 24.1 L MCV 91 MCH 30.7 MCHC 33.7 RDW 14.7 H Plt Count 149 L Sodium 137.5 Potassium 4.1 Chloride 99 Carbon Dioxide 28 Anion Gap 11 BUN 34 H Creatinine 2.87 H Est GFR ( Amer) 19 L Glucose 109 Calcium 8.2 L Magnesium 2.4 H Total Bilirubin 0.9 AST 39 H Alkaline Phosphatase 58 Total Protein 5.6 L Albumin 3.3 L 08/08/19 13:08 Blood Blood Culture - Final NO GROWTH IN 5 DAYS 08/08/19 12:15 Blood Blood Culture - Final NO GROWTH IN 5 DAYS 08/08/19 08/08/19 12:15 18:45 Troponin I 0.040 NT-Pro-B Natriuret Pep [id number] H Impressions: Chest X-Ray 08/13/19 18:00 IMPRESSION: Slightly increased interstitial prominence, greater on the left. Persistent confluent airspace-nodular opacities in the right mid lung. Slightly increased left pleural effusion. Assessment and Plan - Diagnosis (1) Acute and chronic respiratory failure Qualifiers: Respiratory failure complication: hypoxia Qualified Code(s): J96.21 - Acute and chronic respiratory failure with hypoxia Is this a current diagnosis for this admission?: Yes Plan: Mild improvement. SPO2 WNL on 6 to 15 L, BiPAP. Multifactorial. Likely due to COPD exacerbation complicated by end-stage renal disease and possibly developing healthcare associated pneumonia. Continue empiric broad-spectrum IV antibiotics flutter valve, incentive spirometry, DuoNeb, IV steroids, pulmonary toileting. Day 6 IV antibiotics. Day 2 IV cefepime. Received 4 days of doxycycline. Cultures no growth so far. (2) Atrial fibrillation with RVR Is this a current diagnosis for this admission?: Yes Plan: New onset paroxysmal A. fib. CHADsVASC 6 Currently rate controlled. Continue scheduled and PRN beta-blockers. We will discuss with family on long-term anticoagulation. Will consult cardiology. (3) HCAP (healthcare-associated pneumonia) Is this a current diagnosis for this admission?: Yes Plan: Patient high risk for HCAP. Recently hospitalized and also her hospitalized at [facility] and she has been visiting her. 08/13/2019. Chest x-ray slightly increased interstitial prominence, greater on the left. Persistent confluent airspace nodular opacity in the right mid lung. Plan as per #1. (4) Chronic obstructive pulmonary disease with acute exacerbation Is this a current diagnosis for this admission?: Yes Plan: Plan as per #1. (5) End stage renal failure on dialysis Is this a current diagnosis for this admission?: Yes Plan: Does not seem to be volume overloaded. Status post hemodialysis. 750 mL removed 08/13/2019. Monitor volume status and electrolyte replace as needed. Nephrology on board. (6) Coronary artery disease Qualifiers: Coronary Disease-Associated Artery/Lesion type: [place] artery [place] vs. transplanted heart: [place] heart Associated angina: without angina Qualified Code(s): I25.10 - Atherosclerotic heart disease of [place] coronary artery without angina pectoris Is this a current diagnosis for this admission?: Yes Plan: Denies any anginal symptoms. Troponin 0.040 on admission. Mildly elevated likely due to end-stage renal disease. EKG on admission sinus rhythm. Continue antiplatelets, statins, beta-blockers and [place]. (7) HTN (hypertension) Qualifiers: Hypertension type: renovascular hypertension Qualified Code(s): I15.0 - Renovascular hypertension Is this a current diagnosis for this admission?: Yes Plan: Normotensive. Appears euvolemic. Continue beta-blockers and Lasix. Cardiac diet. (8) Hypothyroidism Qualifiers: Hypothyroidism type: acquired Qualified Code(s): E03.9 - Hypothyroidism, unspecified Is this a current diagnosis for this admission?: Yes Plan: Restart home meds. Will obtain new TSH.
[2019-08-14] MEDS: PANTOPRAZOLE SODIUM 40 MG TABLET.DR PO SCH (09:44)
[2019-08-14] MEDS: FUROSEMIDE 20 MG TABLET PO SCH (09:44)
[2019-08-14] MEDS: CHOLECALCIFEROL (D3) 1,000 UNIT (25 MCG) TABLET PO SCH (09:44)
[2019-08-14] MEDS: METHOCARBAMOL 750 MG TABLET PO SCH (09:44)
[2019-08-14] MEDS: PREDNISONE 20 MG TABLET PO SCH (09:44)
[2019-08-14] MEDS: METOPROLOL SUCCINATE 25 MG TAB.SR.24H PO SCH ×2 (09:45→21:24)
[2019-08-14] MEDS: UMECLIDINIUM BROMIDE 62.5 MCG/DOSE IH SCH (09:45)
[2019-08-14] MEDS: FLUTICASONE/VILANTEROL 200-25 MCG/DOSE IH SCH (09:45)
[2019-08-14] MEDS: ASPIRIN 81 MG TABLET, ENT COATED PO SCH (09:46)
[2019-08-14] MEDS: CEFEPIME 1 GM/D5W RTU 1 GM/50 ML RTUPB IV SCH ×2 (09:49→21:25)
[2019-08-14] MEDS ORDERED: METOPROLOL SUCCINATE 50 MG TAB.SR.24H PO SCH ×2 (10:00)
[2019-08-14] MEDS ORDERED: LEVOFLOXACIN 500 MG/D5W RTU 500 MG/100 ML RTUPB IV SCH (14:00)
--- NOTE | 2019-08-14 21:19 | EKG REPORT ---
SEVERITY:- OTHERWISE NORMAL ECG - SINUS RHYTHM BASELINE ARTIFACTS : Confirmed by: Katerina Murphy MD 14-Aug-2019 21:17:54
[2019-08-14] MEDS: ATORVASTATIN CALCIUM 20 MG TABLET PO SCH (21:24)
[2019-08-15] MEDS: IPRATROPIUM BROMIDE 0.02% NEB 0.5 MG/2.5 ML AMPUL NEB SCH ×4 (02:05→20:58)
[2019-08-15] MEDS: ALBUTEROL SULFATE 0.083% NEB 2.5 MG/3 ML AMPUL NEB SCH (02:05)
[2019-08-15] MEDS: LIOTHYRONINE SODIUM 5 MCG TABLET PO SCH (06:03)
[2019-08-15] MEDS: LEVOTHYROXINE SODIUM 0.088 MG TABLET PO SCH (06:03)
[2019-08-15] MEDS: HEPARIN SOD (PORCINE) 5,000 UNIT/ML 1 ML VIAL SUBCUT SCH ×3 (06:04→21:22)
[2019-08-15 07:21] LABS: HEMATOCRIT 27.1 % (36.0-47.0); HEMOGLOBIN 9.3 g/dL (12.0-15.5); MEAN CORPUSCULAR HEMOGLOBIN 30.4 pg (27.0-33.4); MEAN CORPUSCULAR HGB CONC 34.1 g/dL (32.0-36.0); MEAN CORPUSCULAR VOLUME 89 fl (80-97); PLATELET COUNT 189 10^3/uL (150-450); RED BLOOD COUNT 3.04 10^6/uL (3.72-5.28); RED CELL DISTRIBUTION WIDTH 14.4 % (11.5-14.0)
[2019-08-15 07:27] LABS: ALBUMIN 2.8 g/dL (3.5-5.0); ALKALINE PHOSPHATASE 76 U/L (38-126); ANION GAP 13 (5-19); ASPARTATE AMINO TRANSFERASE 35 U/L (14-36); BILIRUBIN,DIRECT 0.7 mg/dL (0.0-0.4); BILIRUBIN,TOTAL 0.8 mg/dL (0.2-1.3); BLOOD UREA NITROGEN 56 mg/dL (7-20); CALCIUM 8.2 mg/dL (8.4-10.2); CARBON DIOXIDE 25 mmol/L (22-30); CHLORIDE 98 mmol/L (98-107); GLUCOSE 123 mg/dL (75-110); POTASSIUM 3.9 mmol/L (3.6-5.0); TOTAL PROTEIN 5.4 g/dL (6.3-8.2)
[2019-08-15 07:54] LABS: WHITE BLOOD COUNT 6.9 10^3/uL (4.0-10.5)
[2019-08-15 07:57] LABS: ABSOLUTE LYMPHOCYTES# (MANUAL) 0.3 10^3/uL (0.5-4.7); ABSOLUTE MONOCYTES # (MANUAL) 0.1 10^3/uL (0.1-1.4); BASOPHILS % (MANUAL) 0 % (0-2); EOSINOPHILS % (MANUAL) 0 % (0-6); LYMPHOCYTES % (MANUAL) 3 % (13-45); MONOCYTES % (MANUAL) 2 % (3-13); SEGMENTED NEUTROPHILS % (MAN) 94 % (42-78); TOTAL CELLS COUNTED 100
[2019-08-15 08:01] LABS: ANISOCYTOSIS SLIGHT; OVALOCYTES 1+; PLATELET COMMENT ADEQUATE; TOXIC GRANULATION SLIGHT
[2019-08-15] MEDS: LEVALBUTEROL HCL NEB 0.63 MG/3 ML AMPUL NEB SCH ×3 (08:10→20:59)
[2019-08-15] MEDS: ACETYLCYSTEINE 20% SOLN 800 MG/4 ML VIAL.NEB NEB SCH ×2 (08:10→20:57)
[2019-08-15] MEDS: METOPROLOL SUCCINATE 25 MG TAB.SR.24H PO SCH (09:14)
[2019-08-15] MEDS: CHOLECALCIFEROL (D3) 1,000 UNIT (25 MCG) TABLET PO SCH (09:14)
[2019-08-15] MEDS: PANTOPRAZOLE SODIUM 40 MG TABLET.DR PO SCH (09:14)
[2019-08-15] MEDS: FUROSEMIDE 20 MG TABLET PO SCH (09:14)
[2019-08-15] MEDS: ASPIRIN 81 MG TABLET, ENT COATED PO SCH (09:14)
[2019-08-15] MEDS: PREDNISONE 20 MG TABLET PO SCH (09:14)
[2019-08-15] MEDS: CEFEPIME 1 GM/D5W RTU 1 GM/50 ML RTUPB IV SCH ×2 (09:15→21:22)
[2019-08-15] MEDS: FLUTICASONE/UMECLIDIN/VILANTER 100-62.5-25 MCG/DOSE IH SCH (09:20)
[2019-08-15] MEDS ORDERED: METOPROLOL TARTRATE PF/INJ 5 MG/5 ML SDV IV ONE (10:02)
[2019-08-15] MEDS ORDERED: METOPROLOL SUCCINATE 25 MG TAB.SR.24H PO ONE ×2 (11:17→11:30)
[2019-08-15] MEDS ORDERED: ALBUMIN HUMAN 500 ML IV ONE (11:40)
[2019-08-15] MEDS: METOPROLOL SUCCINATE 50 MG TAB.SR.24H PO SCH ×2 (11:52→21:22)
[2019-08-15 13:15] LABS: FREE T3 1.06 pg/mL (2.77-5.27); FREE T4 (FREE THYROXINE) 1.44 ng/dL (0.78-2.19)
[2019-08-15] MEDS: MEGESTROL ACETATE 20 MG TABLET PO SCH (15:42)
[2019-08-15] MEDS: ACETAMINOPHEN 325 MG TABLET PO PRN ×2 (15:45→21:35)
[2019-08-15] MEDS ORDERED: ENOXAPARIN SODIUM INJ 80 MG/0.8 ML DISP.SYRIN SUBCUT SCH ×2 (16:00)
--- NOTE | 2019-08-15 18:02 | XCELERA REPORT ---
[address] [facility] [id number] Lower Extremity Venous Evaluation Procedure: Color flow and duplex imaging bilaterally of the veins of the lower extremities as well as the Common Femoral veins. Right Sided Venous Evaluation Normal vessel filling wall to wall, compression and augmentation as well as Colour flow down to the infrageniculate veins. Left Sided Venous Evaluation Normal vessel filling wall to wall, compression and augmentation as well as Colour flow down to the infrageniculate veins. Interpretation Summary No duplex evidence of DVT or obstruction in the bilateral lower extremities. Name: EZRA SUERO Age: 79 yrs Gender: Female : 1940 Patient Status: Inpatient Patient Location: [address] [place] [address] Study Date: 08/15/2019 02:13 PM Reason For Study: examine for dvt correlation pe Ordering Physician: JOVANNA ULLOA Performed By: Eligio Howard : JOVANNA ULLOA > Apolinar Cee
--- NOTE | 2019-08-15 18:15 | PDOC PROGRESS REPORT ---
Subjective Progress Note for:: 08/15/19 Subjective:: 08/13/2019. Was noted this morning to be in respiratory distress, with crackles on physical examination, started on IV cefepime to cover for possible hospital- acquired pneumonia, after hemodialysis patient was noted to be tachycardic and hypotensive, saturating WNL on BiPAP and high flow, consulted irrigation teacher for possible transfer to ICU, plan is to start on empiric IV antibiotics, tracheal suctioning and IV albumin if no improvement will be transferred to ICU for possible intubation. 08/14/2019. Overnight patient was noted to be developing respiratory distress with tachycardia and hypotension. Sign Writer Letterer Or Painter consulted, transfer to the unit was held and patient was given several doses of IV albumin. Overnight BP improved, and respiratory symptoms also improved mildly however patient was noted to have developed A. fib RVR this morning and was given several doses of metoprolol which controlled her rate however still in A. fib. This morning patient is on BiPAP does not seem to be in severe distress, stating that she is feeling better compared to yesterday, complaining of dry mouth, denies any chest pain, nausea, vomiting, diarrhea, constipation or any urinary symptoms. 08/15/2019. Still noted to be in significant respiratory distress requiring BiPAP all day, very tachycardic, Dr. Stinson pulmonology who adjusted BiPAP setting and also recommend a CTA. Available at the time of dictation. Also talked to Dr. Sinclair her wing scorer about possible A. fib RVR who stated that patient does not have any history of A. fib RVR and on reviewing her EKG does not seem to have A. fib RVR. He also stated that patient has implantable loop recorder and has been followed at [place] and has not been noted to have A. fib RVR since ILR placement. Patient denies any chest pain, nausea, vomiting, diarrhea, constipation or any urinary symptoms. Reason For Visit: ACUTE ON CHRONIC RESPIRATORY FAILURE,ESRD Physical Exam Vital Signs: Temp Pulse Resp BP Pulse Ox 97.8 F 89 21 H 135/84 H 97 08/15/19 11:26 08/15/19 14:06 08/15/19 15:39 08/15/19 11:26 08/15/19 15:39 Intake & Output 08/14/19 08/15/19 08/16/19 06:59 06:59 06:59 Intake Total 1118 1061 550 Output Total 825 551 Balance 293 510 550 Weight 78.5 kg 78.6 kg General appearance: PRESENT: severe distress Head exam: PRESENT: atraumatic, normocephalic Respiratory exam: PRESENT: accessory muscle use, clear to auscultation [place], symmetrical, tachypnea. ABSENT: rales, rhonchi, wheezes Cardiovascular exam: PRESENT: tachycardia GI/Abdominal exam: PRESENT: normal bowel sounds, soft. ABSENT: distended, guarding, mass, organolmegaly, rebound, tenderness Neurological exam: PRESENT: alert, awake, oriented to person, oriented to place, oriented to time, oriented to situation, CN II-XII grossly intact. ABSENT: motor sensory deficit Results Laboratory Results: 08/15/19 06:34 08/15/19 06:34 08/15/19 08/15/19 08/15/19 06:34 06:34 06:34 WBC 6.9 D RBC 3.04 L Hgb 9.3 L Hct 27.1 L MCV 89 MCH 30.4 MCHC 34.1 RDW 14.4 H Plt Count 189 Seg Neutrophils % Not Reportable Sodium 135.9 L Potassium 3.9 Chloride 98 Carbon Dioxide 25 Anion Gap 13 BUN 56 H Creatinine 3.96 H Est GFR ( Amer) 13 L Glucose 123 H Calcium 8.2 L Total Bilirubin 0.8 AST 35 Alkaline Phosphatase 76 Total Protein 5.4 L Albumin 2.8 L TSH 0.22 L Free T4 Free T3 pg/mL 08/15/19 06:34 WBC RBC Hgb Hct MCV MCH MCHC RDW Plt Count Seg Neutrophils % Sodium Potassium Chloride Carbon Dioxide Anion Gap BUN Creatinine Est GFR ( Amer) Glucose Calcium Total Bilirubin AST Alkaline Phosphatase Total Protein Albumin TSH Free T4 1.44 Free T3 pg/mL 1.06 L 08/14/19 20:20 Sputum Gram Stain - Final 08/14/19 20:20 Sputum Sputum Culture - Final 08/08/19 08/08/19 08/15/19 12:15 18:45 06:34 Troponin I 0.040 NT-Pro-B Natriuret Pep 41178 H 28428 H Impressions: Chest X-Ray 08/13/19 18:00 IMPRESSION: Slightly increased interstitial prominence, greater on the left. Persistent confluent airspace-nodular opacities in the right mid lung. Slightly increased left pleural effusion. Assessment and Plan - Diagnosis (1) Acute and chronic respiratory failure Qualifiers: Respiratory failure complication: hypoxia Qualified Code(s): J96.21 - Acute and chronic respiratory failure with hypoxia Is this a current diagnosis for this admission?: Yes Plan: No significant improvement. SPO2 WNL on 6 to 15 L BiPAP dependent. Multifactorial. Likely due to COPD exacerbation complicated by end-stage renal disease and possibly developing healthcare associated pneumonia. Continue empiric broad-spectrum IV antibiotics flutter valve, incentive spirometry, DuoNeb, IV steroids, pulmonary toileting. Day 7 IV antibiotics. Day 2 IV cefepime. Received 4 days of doxycycline. Cultures no growth so far. Given the fact the patient is still hypoxic and tachycardic question of possible PE was raised. Given history of end-stage renal disease and not having nephrology coverage over the weekend and initially tried to avoid CTA by doing bilateral lower extremity Doppler for any clots which were reported as negative, 2D echo to rule out any right heart strain which was also negative, however patient has very elevated d-dimer. I contacted [facility] at [place] for possible transfer where she could get a CTA followed by hemodialysis but unfortunately they do not have any availability however she is on the waiting list. It was suggested by Dr. Stinson that she could be started on Mucomyst prior to undergoing CTA however quick review of medical literature does not show any clear benefit of giving IV Mucomyst and may actually cause anaphylactic reaction. Review of medical literature also mentions that there are no studies to support immediate dialysis after IV contrast administration to preserve residual renal function or limit the risk of allergic reaction and hemodialysis patient. However some clinician tried to perform hemodialysis treatment within 24 to 36 hours after IV contrast exposure. I have extensively counseled family who are in agreement with CTA to rule out pulmonary embolus. (2) Atrial fibrillation with RVR Is this a current diagnosis for this admission?: Yes Plan: Ruled out. Sinus tachycardia. Based on my conversation with and desk monitor review and EKG patient does not seem to have A. fib RVR. As per her wing scorer patient has implantable loop recorder placement and followed at [facility] and has not been noted to have A. fib RVR since ILR has been placed. (3) HCAP (healthcare-associated pneumonia) Is this a current diagnosis for this admission?: Yes Plan: Patient high risk for HCAP. Recently hospitalized and also her hospitalized at [facility] and she has been visiting her. 08/13/2019. Chest x-ray slightly increased interstitial prominence, greater on the left. Persistent confluent airspace nodular opacity in the right mid lung. Plan as per #1. (4) Chronic obstructive pulmonary disease with acute exacerbation Is this a current diagnosis for this admission?: Yes Plan: Plan as per #1. (5) End stage renal failure on dialysis Is this a current diagnosis for this admission?: Yes Plan: Does not seem to be volume overloaded. Status post hemodialysis. 750 mL removed 08/13/2019. Monitor volume status and electrolyte replace as needed. Nephrology on board. (6) Coronary artery disease Qualifiers: Coronary Disease-Associated Artery/Lesion type: [place] artery [place] vs. transplanted heart: [place] heart Associated angina: without angina Qualified Code(s): I25.10 - Atherosclerotic heart disease of [place] coronary artery without angina pectoris Is this a current diagnosis for this admission?: Yes Plan: Denies any anginal symptoms. Troponin 0.040 on admission. Mildly elevated likely due to end-stage renal disease. EKG on admission sinus rhythm. Continue antiplatelets, statins, beta-blockers and [place]. (7) HTN (hypertension) Qualifiers: Hypertension type: renovascular hypertension Qualified Code(s): I15.0 - Renovascular hypertension Is this a current diagnosis for this admission?: Yes Plan: Normotensive. Appears euvolemic. Continue beta-blockers and Lasix. Cardiac diet. (8) Hypothyroidism Qualifiers: Hypothyroidism type: acquired Qualified Code(s): E03.9 - Hypothyroidism, unspecified Is this a current diagnosis for this admission?: Yes Plan: Restart home meds. Will obtain new TSH. (9) Congestive heart failure Qualifiers: Heart failure type: diastolic Is this a current diagnosis for this admission?: Yes Plan: Given elevated proBNP [phone] patient does not look clinically volume overloaded. 2D echo 2018 showed normal ejection fraction with grade 2/4 diastolic dysfunction. Repeat 2D echo pending. Continue cardiac diet, beta-blockers, diuretics. Follow-up 2D echo.
--- NOTE | 2019-08-15 19:26 | RADIOLOGY REPORT (SQ) ---
EXAM DESCRIPTION: CTA CHEST COMPLETED DATE/TIME: 08/15/2019 6:59 pm REASON FOR STUDY: r/o PE . Dialysis patient. COMPARISON: Chest x-ray 08/13/2019, CT chest noncontrast 06/10/2018. TECHNIQUE: CT scan of the chest performed using helical scanning technique with dynamic intravenous contrast injection. Images reviewed with lung, soft tissue and bone windows. Reconstructed coronal and sagittal MPR images reviewed. Additional 3 dimensional post-processing performed to develop Maximal Intensity Projection images (IN P). All images stored on PACS. All CT scanners at this facility use dose modulation, iterative reconstruction, and/or weight based d osing when appropriate to reduce radiation dose to as low as reasonably achievable (ALARA). [facility]: Dose Right [facility]: CareDose [facility]: Dose Right [facility]: Teradose 4D [facility]: NeuroSigma CONTRAST TYPE AND DOSE: contrast/concentration: Isovue 350.00 mg/ml; Total Contrast Delivered: 59.0 ml; Total Saline Delivered: 80.0 ml Contrast bolus adequate for pulmonary arteries and aorta. RENAL FUNCTION: Creatinine 3.96. Dialysis patient. RADIATION DOSE: CT Rad equipment meets quality standard of care and radiation dose reduction techniq ues were employed. CTDIvol: 9.9 - 14.8 mGy. DLP: 522 mGy-cm. . LIMITATIONS: Motion artifact. FINDINGS: LUNGS AND PLEURA: Evaluation of the lungs is degraded by motion artifact. There are smal l bilateral pleural effusions. There are bilateral airspace opacities. No pneumothorax. There are bilateral changes of emphysema. AORTA AND GREAT VESSELS: No thoracic aortic aneurysm or evidence for acute dissection. Atherosclerot ic calcifications are noted at the thoracic aorta. HEART: No pericardial effusion. The heart is enlarged. Coronary artery calcifications are noted. PULMONARY ARTERIES: No emboli visualized in the main pulmonary arteries or the visual segmental branc hes. HILAR AND MEDIASTINAL STRUCTURES: Right hilar adenopathy measuring 1.3 cm in short axis. Mediastinal lymph nodes measuring up to 1.7 cm in short axis. HARDWARE: None in the chest. UPPER ABDOMEN: Small amount of free fluid at the visualized upper abdomen. The patient is status pos t cholecystectomy. The visualized common bile duct is dilated to 1.4 cm. BONES: Mild multilevel degenerative changes at the spine. 3D MIPS: Confirm above findings. IMPRESSION: 1. Study degraded by motion artifact. No definite evidence for pulmonary emboli. 2. Cardiomegaly. Coronary artery calcifications. 3. Emphysema. Small bilateral pleural effusions. Bilateral airspace opacities, may be secondary to multifocal pneumonia; follow-up CT after treatment recommended to ensure complete resolution and excl ude underlying neoplasm. 4. Mild mediastinal and right hilar adenopathy. 5. Small abdominal ascites. Mildly dilated common bile duct status post cholecystectomy. COMMENT: Quality ID # [id number]: Final reports with documentation of one or more dose reduction techniques (e.g., Automated exposure control, adjustment of the mA and/or kV according to patient size, use of iterative reconstruction technique) TECHNICAL DOCUMENTATION: JOB ID: [id number] [employer]- All Rights Reserved Reading location - IP/workstation name: [email or web address]
[2019-08-15] MEDS: ATORVASTATIN CALCIUM 20 MG TABLET PO SCH (21:22)
[2019-08-15] MEDS ORDERED: METOPROLOL SUCCINATE 25 MG TAB.SR.24H PO SCH (22:00)
[2019-08-16] MEDS: IPRATROPIUM BROMIDE 0.02% NEB 0.5 MG/2.5 ML AMPUL NEB SCH ×3 (02:18→13:37)
[2019-08-16] MEDS ORDERED: EPOETIN ALFA-EPBX 2,000 UNIT, EPOETIN ALFA-EPBX 3,000 UNIT, EPOETIN ALFA-EPBX 20,000 UN... IV PRN ×4 (05:00)
[2019-08-16] MEDS: LIOTHYRONINE SODIUM 5 MCG TABLET PO SCH (05:37)
[2019-08-16] MEDS: HEPARIN SOD (PORCINE) 5,000 UNIT/ML 1 ML VIAL SUBCUT SCH ×3 (05:37→21:39)
[2019-08-16] MEDS: LEVOTHYROXINE SODIUM 0.075 MG TABLET PO SCH (05:37)
[2019-08-16 06:41] LABS: ARTERIAL BLOOD BASE EXCESS -0.6 mmol/L; ARTERIAL BLOOD H2CO3 0.92 mmol/L (1.05-1.35); ARTERIAL BLOOD HCO3 22.4 mmol/L (20-24); ARTERIAL BLOOD O2 SATURATION 95.8 % (94-98); ARTERIAL BLOOD PCO2 30.7 mmHg (35-45); ARTERIAL BLOOD PH 7.48 (7.35-7.45); ARTERIAL BLOOD PO2 73.1 mmHg (80-100); ARTERIAL BLOOD TOTAL CO2 23.3 mmol/L (21-25)
[2019-08-16 06:42] LABS: ARTERIAL BLOOD FIO2 60%
[2019-08-16 06:46] LABS: APPEARANCE,URINE SLIGHTLY-CLOUDY; BILIRUBIN,URINE NEGATIVE (NEGATIVE); COLOR,URINE YELLOW; GLUCOSE, URINE NEGATIVE (NEGATIVE); KETONES,URINE TRACE mg/dL (NEGATIVE); LEUKOCYTE ESTERASE,URINE NEGATIVE (NEGATIVE); NITRITE,URINE NEGATIVE (NEGATIVE); PROTEIN,URINE 100 mg/dL (NEGATIVE); URINE SPECIFIC GRAVITY 1.027; UROBILINOGEN,URINE NEGATIVE mg/dL (<2.0)
[2019-08-16] MEDS: ACETYLCYSTEINE 20% SOLN 800 MG/4 ML VIAL.NEB NEB SCH (08:10)
[2019-08-16] MEDS: LEVALBUTEROL HCL NEB 0.63 MG/3 ML AMPUL NEB SCH ×2 (08:10→13:37)
[2019-08-16 08:27] LABS: HEMATOCRIT 23.7 % (36.0-47.0); HEMOGLOBIN 8.3 g/dL (12.0-15.5); MEAN CORPUSCULAR HEMOGLOBIN 31.3 pg (27.0-33.4); MEAN CORPUSCULAR HGB CONC 34.8 g/dL (32.0-36.0); MEAN CORPUSCULAR VOLUME 90 fl (80-97); PLATELET COUNT 177 10^3/uL (150-450); RED BLOOD COUNT 2.64 10^6/uL (3.72-5.28); RED CELL DISTRIBUTION WIDTH 14.6 % (11.5-14.0); WHITE BLOOD COUNT 8.5 10^3/uL (4.0-10.5)
[2019-08-16 08:49] LABS: ALBUMIN 2.8 g/dL (3.5-5.0); ALKALINE PHOSPHATASE 85 U/L (38-126); ANION GAP 13 (5-19); ASPARTATE AMINO TRANSFERASE 30 U/L (14-36); BILIRUBIN,DIRECT 0.4 mg/dL (0.0-0.4); BILIRUBIN,TOTAL 0.8 mg/dL (0.2-1.3); BLOOD UREA NITROGEN 74 mg/dL (7-20); CALCIUM 8.4 mg/dL (8.4-10.2); CARBON DIOXIDE 23 mmol/L (22-30); CHLORIDE 100 mmol/L (98-107); GLUCOSE 95 mg/dL (75-110); PHOSPHORUS 3.5 mg/dL (2.5-4.5); POTASSIUM 4.2 mmol/L (3.6-5.0); TOTAL PROTEIN 5.3 g/dL (6.3-8.2)
[2019-08-16 09:00] LABS: ABSOLUTE LYMPHOCYTES# (MANUAL) 0.3 10^3/uL (0.5-4.7); BASOPHILS % (MANUAL) 0 % (0-2); EOSINOPHILS % (MANUAL) 0 % (0-6); LYMPHOCYTES % (MANUAL) 3 % (13-45); MONOCYTES % (MANUAL) 0 % (3-13); SEGMENTED NEUTROPHILS % (MAN) 97 % (42-78); TOTAL CELLS COUNTED 100
[2019-08-16 09:01] LABS: ANISOCYTOSIS SLIGHT; OVALOCYTES SLIGHT; PLATELET COMMENT ADEQUATE; POIKILOCYTOSIS SLIGHT; TOXIC GRANULATION SLIGHT
--- NOTE | 2019-08-16 09:21 | XCELERA REPORT ---
[address] [address] Transthoracic Echocardiogram Report Name: EZRA SUERO Age: 79 yrs Gender: Female : 1940 Patient Status: Inpatient Patient Location: [address] [place], [place] [address] Study Date: 08/15/2019 02:49 PM History: Right heart failure Height: 62 in Weight: 173 lb BSA: 1.8 m2 Procedure: A complete two-dimensional transthoracic echocardiogram was performed (2D, M-mode, spectral and color flow Doppler). The study was technically difficult with many images being suboptimal in quality. Reason For Study: rule out right sided heart failure correlation pe Previous Evaluation: No previous studies were available. History: CHF. Ordering Physician: JOVANNA ULLOA Performed By: Eligio Howard Interpretation Summary Left ventricular systolic function is low normal. The Ejection Fraction estimate is 50-55% The right ventricle is normal in size and function. There is a mild amount of mitral regurgitation There is a mild amount of aortic regurgitation There is moderate pulmonary hypertension by echo Minimal pericardial effusion. MMode/2D Measurements & Calculations RVDd: 3.8 cm LVIDd: 5.4 cm FS: 27.5 % Ao root diam: IVSd: 1.1 cm LVIDs: 3.9 cm EDV(Teich): 3.1 cm LVPWd: 1.1 cm 142.9 ml Ao root area: ESV(Teich): 7.7 cm2 67.3 ml LA dimension: EF(Teich): 52.9 % 3.8 cm LVLd ap4: 8.1 cm SV(MOD-sp4): 56.0 ml EDV(MOD-sp4): 109.0 ml LVLs ap4: 7.1 cm ESV(MOD-sp4): 53.0 ml EF(MOD-sp4): 51.4 % Doppler Measurements & Calculations MV E max cuong: MV P1/2t max cuong: Ao V2 max: AI max cuong: 129.8 cm/sec 115.1 cm/sec 143.0 cm/sec 329.8 cm/sec MV A max cuong: MV P1/2t: 82.2 msec Ao max PG: AI max P.1 cm/sec MVA(P1/2t): 2.7 cm2 8.2 mmHg 43.5 mmHg MV E/A: 1.2 MV dec slope: AI dec slope: 232.6 cm/sec2 409.9 cm/sec2 AI P1/2t: MV dec time: 415.3 msec 0.15 sec LV V1 max PG: PA V2 max: PI end-d cuong: TR max cuong: 3.9 mmHg 97.7 cm/sec 164.2 cm/sec 435.7 cm/sec LV V1 max: PA max P.8 mmHg TR max P.7 cm/sec 75.9 mmHg LV dP/dt: 1010 mmHg/s AV P1/2t-pr_phl: MV P1/2t-pr_phl: 415.3 msec 82.2 msec Left Ventricle The left ventricle is grossly normal size. There is moderate concentric left ventricular hypertrophy. Left ventricular systolic function is low normal. The Ejection Fraction estimate is 50-55%. Doppler measurements suggest pseudonormalized left ventricular relaxation, which is associated with grade II/IV or mild to moderate diastolic dysfunction. No regional wall motion abnormalities noted. Right Ventricle The right ventricle is normal in size and function. Atria The right atrium is mildly dilated. The left atrium is mildly dilated. Mitral Valve The mitral valve is grossly normal. There is no mitral valve stenosis. There is a mild amount of mitral regurgitation. Aortic Valve The aortic valve is normal in structure and function. The aortic valve opens well. The aortic valve is trileaflet. There is no aortic valve stenosis. There is a mild amount of aortic regurgitation. Tricuspid Valve The tricuspid valve is normal in structure and function. There is a mild amount of tricuspid regurgitation. There is moderate pulmonary hypertension by echo. Right ventricular systolic pressure is estimated to be elevated at >60mmHg. Pulmonic Valve The pulmonic valve is normal in structure and function. There is a mild to moderate amount of pulmonic regurgitation. Great Vessels The aortic root is normal size. The inferior vena cava appeared normal and decreased > 50% with respiration (RAP 5-10 mmHg). Effusions Minimal pericardial effusion. : JOVANNA ULLOA Anil
[2019-08-16] MEDS ORDERED: NORMAL SALINE 1000 ML 1,000 ML IV PRN (10:52)
[2019-08-16] MEDS: CHOLECALCIFEROL (D3) 1,000 UNIT (25 MCG) TABLET PO SCH (11:13)
[2019-08-16] MEDS: PREDNISONE 20 MG TABLET PO SCH (11:14)
[2019-08-16] MEDS: FLUTICASONE/UMECLIDIN/VILANTER 100-62.5-25 MCG/DOSE IH SCH (11:14)
[2019-08-16] MEDS: ASPIRIN 81 MG TABLET, ENT COATED PO SCH (11:14)
[2019-08-16] MEDS: CEFEPIME 1 GM/D5W RTU 1 GM/50 ML RTUPB IV SCH (11:14)
[2019-08-16] MEDS: METOPROLOL SUCCINATE 50 MG TAB.SR.24H PO SCH ×2 (11:14→22:41)
[2019-08-16] MEDS: MEGESTROL ACETATE 20 MG TABLET PO SCH (11:14)
[2019-08-16] MEDS: PANTOPRAZOLE SODIUM 40 MG TABLET.DR PO SCH (11:14)
[2019-08-16] MEDS ORDERED: EPOETIN ALFA-EPBX 20,000 UNIT in SYRINGE, DISPOSABLE, 1 EACH IV PRN (11:15)
--- NOTE | 2019-08-16 11:29 | PDOC CONSULTATION ---
Consultation Consult Date: 08/15/19 Attending physician:: JOVANNA ULLOA Provider Consulted: GIANA LOCKWOOD Consult reason:: Respiratory failure History of Present Illness Admission Date/PCP: 08/08/19 17:33 GIANNA BOURGEOIS MD History of Present Illness: EZRA SUERO is a 79 year old female complains of not feeling well and increasing shortness of breath 2 days prior to presentation the present time of presentation she was tachypneic hypoxic and hypotensive she was started on BiPAP with some improvement and subsequently was placed on a an IMCU bed she denies productive cough or hemoptysis or PPD was negative dates unknown she denies history of chronic lung disease as a child or adolescent. She admits to exposure large amounts of passive smoke as a child as well as an adult severe smell smoked a half a pack a day for 55 years. She denies any occupational exposure to potential respiratory toxins she has 1 dog no recent travel. She denies angina-like chest pain she is on 1-2 pillows no PND no nocturnal cough no edema. She wears CPAP at home and carries a diagnosis of obstructive sleep apnea however the CPAP settings are unknown at this time. She also has a his tory of coronary artery disease hypertension hyperlipidemia and has coronary artery stents Past Medical History Cardiac Medical History: Reports: Atrial Fibrillation - Paroxysmal, anticoagulation discontinued due to GI bleed episodes, Coronary Artery Disease, Myocardial Infarction - [place] X1, STENT PLACED 2000, Hyperlipidema, Hypertension - Pt has hypotension at this time Denies: Congestive Heart Failure Pulmonary Medical History: Reports: Chronic Obstructive Pulmonary Disease (COPD) - ON 3 L O2 NC CONTINUOUS, Sleep Apnea Neurological Medical History: Denies: Seizures Endocrine Medical History: Reports: Hypothyroidism Denies: Diabetes Mellitus Type 2 Renal/ Medical History: Reports: End Stage Renal Disease Malignancy Medical History: Reports: Breast Cancer - Status post mastectomy GI Medical History: Musculoskeltal Medical History: Psychiatric Medical History: Denies: Depression Hematology: Reports: Anemia - Secondary to end-stage kidney disease Denies: Sickle Cell Disease Past Surgical History Past Surgical History: Reports: Appendectomy, Cardiac Catheterization, Cholecystectomy, Coronary Stent - August 2014, Mastectomy, Tubal Ligation, Vascular Surgery - PermCath placement for dialysis with subsequent AVF for elena lysis, Other - AV fistula formation for hemodialysis Denies: Amputation Social History Information Source: Patient, Relative, [facility] Records Lives with: Family Smoking Status: Former Smoker Cigarettes Packs Per Day: 1 Number of Years Smokin Passive smoke exposure as: Both Frequency of Alcohol Use: None Hx Recreational Drug Use: No Drugs: None Hx Prescription Drug Abuse: No Do you have pets?: Yes Have you had any respiratory illnesses as a child?: No Have you been exposed to any sick contacts recently?: No Have you had any recent respiratory illnesses?: Yes Have you travelled outside of [place] in the past 12 months?: No - Advance Directive Resuscitation Status: Full Code Family History Family History: CAD, Other Parental Family History Reviewed: Yes Children Family History Reviewed: Yes Sibling(s) Family History Reviewed.: Yes Medication/Allergy Home Medications: Furosemide [Lasix 20 mg Tablet] 20 mg PO SUTUTHFRSA@0800 06/09/19 Liothyronine Sodium [Cytomel] 5 mcg PO Q6AM 06/09/19 Metoprolol Succinate [Toprol Xl 50 mg Tab.sr] 50 mg PO QPM 06/09/19 Nitroglycerin [Nitrostat 0.4 mg (1/150 Gr) Tabs 25/Bottle] 1 tab SL Q5MP PRN 06/09/19 Omeprazole 40 mg PO QAM 06/09/19 Rosuvastatin Calcium [Crestor 10 mg Tablet] 10 mg PO QPM 06/09/19 Sucroferric Oxyhydroxide [Velphoro] 500 mg PO AC 06/09/19 Albuterol Sulfate [Albuterol Sulfate Hfa] 2 puff IH Q3HP PRN 08/09/19 Aspirin [Ecotrin 81 mg EC Tablet] 81 mg PO DAILY 08/09/19 Cholecalciferol (Vitamin D3) [Vitamin D3] 1,000 unit PO DAILY 08/09/19 Fluticasone/Salmeterol [Advair 250-50 Diskus 14 Dose/Diskus] 1 inh IH Q12 08/09/19 Levothyroxine Sodium [Synthroid 0.088 mg Tablet] 0.088 mg PO Q6AM 08/09/19 Methocarbamol [Robaxin 750 mg Tablet] 750 mg PO DAILY 08/09/19 Tiotropium [place] [Spiriva Handihaler 5 Cap/Kit (18 Mcg/Cap)] 1 cap IH DAILY 08/09/19 Allergies/Adverse Reactions: Sulfa (Sulfonamide Antibiotics) Allergy (Severe, Verified 03/29/19 09:38) unsure pregabalin [From Lyrica] Adverse Reaction (Severe, Verified 03/29/19 09:38) irritable,weight gain Review of Systems All systems: reviewed and no additional remarkable complaints except as stated Physical Exam Vital Signs: Temp Pulse Resp BP Pulse Ox 97.8 F 104 H 29 H 135/84 H 91 L 08/15/19 11:26 08/15/19 11:26 08/15/19 11:26 08/15/19 11:26 08/15/19 11:26 Intake & Output 08/14/19 08/15/19 08/16/19 06:59 06:59 06:59 Intake Total 1118 1061 50 Output Total 825 551 Balance 293 510 50 Weight 78.5 kg 78.6 kg General appearance: PRESENT: cooperative, disheveled, mild distress, well- developed, well-nourished Head exam: PRESENT: atraumatic, normocephalic Eye exam: PRESENT: conjunctiva pale, EOMI. ABSENT: nystagmus, periorbital swelling, scleral icterus Mouth exam: PRESENT: dry mucosa, neck supple, tongue midline Neck exam: ABSENT: carotid bruit, full ROM, JVD, lymphadenopathy, meningismus, tenderness, thyromegaly, tracheal deviation, tracheostomy, other Respiratory exam: PRESENT: decreased breath sounds, prolonged expiratory phas, rales, rhonchi, symmetrical, tachypnea, wheezes. ABSENT: retraction, stridor Cardiovascular exam: PRESENT: irregular rhythm, tachycardia Pulses: PRESENT: normal radial pulses GI/Abdominal exam: PRESENT: soft, other - PD catheter in place. ABSENT: guarding, mass, rebound, tenderness Extremities exam: ABSENT: calf tenderness, clubbing, joint swelling, pedal edema, tenderness Musculoskeletal exam: ABSENT: ambulatory, deformity, dislocation Neurological exam: PRESENT: awake Psychiatric exam: PRESENT: flat affect Skin exam: PRESENT: dry, warm Results Laboratory Results: 08/15/19 06:34 08/15/19 06:34 08/15/19 08/15/19 08/15/19 06:34 06:34 06:34 WBC 6.9 D RBC 3.04 L Hgb 9.3 L Hct 27.1 L MCV 89 MCH 30.4 MCHC 34.1 RDW 14.4 H Plt Count 189 Seg Neutrophils % Not Reportable Sodium 135.9 L Potassium 3.9 Chloride 98 Carbon Dioxide 25 Anion Gap 13 BUN 56 H Creatinine 3.96 H Est GFR ( Amer) 13 L Glucose 123 H Calcium 8.2 L Total Bilirubin 0.8 AST 35 Alkaline Phosphatase 76 Total Protein 5.4 L Albumin 2.8 L TSH 0.22 L 08/08/19 08/08/19 12:15 18:45 Troponin I 0.040 NT-Pro-B Natriuret Pep 66237 H Impressions: Chest X-Ray 08/13/19 18:00 IMPRESSION: Slightly increased interstitial prominence, greater on the left. Persistent confluent airspace-nodular opacities in the right mid lung. Slightly increased left pleural effusion. Assessment & Plan - Diagnosis (1) Acute and chronic respiratory failure Qualifiers: Respiratory failure complication: hypoxia Qualified Code(s): J96.21 - Acute and chronic respiratory failure with hypoxia Is this a current diagnosis for this admission?: Yes Plan: decline from baseline rapid CTA to r/o PE acetylcytene renal protective (2) Congestive heart failure Qualifiers: Heart failure type: diastolic Is this a current diagnosis for this admission?: Yes Plan: bnp 28,400 will recheck serial cardiac enz (3) End stage renal failure on dialysis Is this a current diagnosis for this admission?: Yes Plan: continue HD - Time Time Spent with patient: 65 Time Spent: 50 to 70 Minutes
[2019-08-16] MEDS ORDERED: VANCOMYCIN HCL 0 MG in DEXTROSE 5%-WATER 250 ML IV NR (13:15)
--- NOTE | 2019-08-16 14:23 | RADIOLOGY REPORT (SQ) ---
EXAM DESCRIPTION: CHEST SINGLE VIEW COMPLETED DATE/TIME: 08/16/2019 2:02 pm REASON FOR STUDY: post NGT COMPARISON: None. EXAM PARAMETERS: NUMBER OF VIEWS: One view. TECHNIQUE: An AP view of the chest was obtained. RADIATION DOSE: NA LIMITATIONS: None. FINDINGS: LUNGS AND PLEURA: Basilar predominant pleural, parenchymal and coarse interstitial opaciti es. The costophrenic sulci are so blunted. The contours of the hemidiaphragms are obscured. MEDIASTINUM AND HILAR STRUCTURES: Limited evaluation. HEART AND VASCULAR STRUCTURES: Stable cardiac silhouette. BONES: No acute findings. HARDWARE: The tip and side hole of the enteric tube project within the gastric lumen. There are surg ical clips that project within the gallbladder fossa. There is an implantable cardiac monitoring dev ice in place. OTHER: No other finding. IMPRESSION: The tip and side hole of the enteric tube project within the gastric lumen. TECHNICAL DOCUMENTATION: JOB ID: [id number] 2010 [employer]- All Rights Reserved Reading location - IP/workstation name: [email or web address]
--- NOTE | 2019-08-16 14:23 | Progress Note ---
Provider Note Provider Note: Evaluated patient today and discussed thoroughly with family specifically patient's son as well as his . Primary nurse present at bedside during encounter. Patient remains very dyspneic and is persistently requiring BiPAP throughout the day. Informed by nurse that any attempt to wean her off BiPAP has led to her going into significant respiratory distress requiring replacement. Patient herself endorses significant shortness of breath. Patient is open to intubation if required. Patient's vitals are otherwise stable besides the fact that she is requiring FiO2 of 60% on BiPAP to maintain her sats. Patient has multiple areas of rhonchi on lung auscultation and notably tachypneic. No wheezing audible. No prominence of JVD but may be skewed given body habitus. Trace swelling in lower extremities. No significant distention or tenderness of the abdomen. Patient appears very drowsy and sluggish when talking. ABG this morning revealed PO2 of 73 on 60% FiO2. CTA of the chest done yesterday showing significant interstitial opacities as well as pretty significant pneumonia in both right and left lungs. 1. Acute hypoxic respiratory failure-patient continues to be BiPAP dependent throughout the day requiring FiO2's of around 60%. Unable to wean and currently no high flow nasal cannula is available and the rest of the hospital according to respiratory therapist. Her PaO2/FiO2 ratio this morning is 121. I am concerned for ARDS secondary to multifocal pneumonia. Possibly also complicated by her underlying emphysema, chronic interstitial changes noted on prior x-rays. Continue BiPAP for now but will transfer to the ICU. Patient accepted by Dr. Ortega. 2. Multifocal pneumonia-given continued BiPAP dependence over the past 3 days, will broaden antibiotics and discontinue cefepime and place patient on vancomycin and Levaquin. Previously was on Zosyn as well. 3. Pulmonary hypertension- RVSP on echo >60mmHg and 2/4 diastolic dysfunction with normal EF. Given severity of her pulmonary hypertension, she may benefit from right heart catheterization to evaluate etiology from her left heart failure versus pulmonary. This could also very well be contributing to hypoxia. Continue Lasix and scheduled dialysis sessions. Pulmonary following. 4. Poor nutrition-has been unable to eat for the past 3 days as she is BiPAP dependent no high flow nasal cannula available. Dobhoff tube placed and dietary consulted for tube feeding.
--- NOTE | 2019-08-16 16:25 | PDOC CRITICAL CARE PROG REPORT ---
General Date:: 08/16/19 ICU Day:: 1 Hospital Day:: 9 Resuscitation Status: Full Code Events in the past 12 to 24 Hours:: This 79-year-old female originally presented to [facility] on 08/08/2019 with complaints of respiratory distress. She was evaluated by Dr. Karen Rodriguez and admitted to the ICU (see H&P 08/08/2019 1752). She presented with a proBNP of 28,400. She was treated for acute on chronic hypoxemic respiratory failure. She has a known history of end-stage renal disease, COPD and obstructive sleep apnea. She was hospitalized in the intensive care unit from 08/08 to 08/13, when she transferred out to the floor. Based on discussion with Dr. Garcia today, the patient has struggled with persistent dyspnea and increasing FiO2 requirement, apparently requiring BiPAP support. At the time of clinical interview, the patient has transferred to the ICU for her hemodialysis session. proBNP is now over 60,000. She is on BiPAP 20/02, FiO2 65%. Review of systems relevant to events:: Respiratory, renal Reason for ICU Addmission:: acute on chronic respiratory failure, ESRD - Medications: Medications reviewed and adjusted accordingly: Yes Vasopressors:: None Physical Exam Vital Signs: Temp Pulse Resp BP Pulse Ox 97.3 F 88 24 H 148/81 H 91 L 08/16/19 07:57 08/16/19 13:35 08/16/19 13:35 08/16/19 07:57 08/16/19 13:35 Intake & Output 08/15/19 08/16/19 08/17/19 06:59 06:59 06:59 Intake Total 1061 1200 50 Output Total 551 525 Balance 510 675 50 Weight 78.6 kg 78.6 kg Weight/Height Weight 78.6 kg Height 1.57 m General appearance: PRESENT: no acute distress, other - BiPAP Eye exam: PRESENT: conjunctiva pink, EOMI, PERRLA, other - Arcus senilis. ABSENT: scleral icterus Mouth exam: PRESENT: dry mucosa, neck supple, tongue midline Neck exam: PRESENT: full ROM. ABSENT: tenderness, tracheal deviation Respiratory exam: PRESENT: crackles - biaterally, decreased breath sounds, rales, symmetrical. ABSENT: wheezes Cardiovascular exam: PRESENT: irregular rhythm. ABSENT: diastolic murmur, rubs, systolic murmur Pulses: PRESENT: normal dorsalis pedis pul GI/Abdominal exam: PRESENT: normal bowel sounds, soft, other - PD catheter in situ. ABSENT: distended, guarding, mass, rebound, tenderness Extremities exam: PRESENT: full ROM. ABSENT: calf tenderness, clubbing, pedal edema Musculoskeletal exam: PRESENT: normal inspection Neurological exam: PRESENT: alert, awake, CN II-XII grossly intact. ABSENT: motor sensory deficit Psychiatric exam: PRESENT: flat affect Skin exam: PRESENT: dry, intact, warm. ABSENT: cyanosis, rash Laboratory/Radiographs Laboratory Results: 08/16/19 07:10 08/16/19 07:10 08/16/19 08/16/19 08/16/19 05:03 05:03 06:08 WBC Cancelled RBC Cancelled Hgb Cancelled Hct Cancelled MCV Cancelled MCH Cancelled MCHC Cancelled RDW Cancelled Plt Count Cancelled Seg Neutrophils % Cancelled Carbonic Acid HCO3/H2CO3 Ratio ABG pH ABG pCO2 ABG pO2 ABG HCO3 ABG O2 Saturation ABG Base Excess FiO2 Sodium Cancelled Potassium Cancelled Chloride Cancelled Carbon Dioxide Cancelled Anion Gap Cancelled BUN Cancelled Creatinine Cancelled Est GFR ( Amer) Cancelled Est GFR (Non-Af Amer) Cancelled Glucose Cancelled Calcium Cancelled Phosphorus Cancelled Magnesium Cancelled Total Bilirubin Cancelled AST Cancelled Alkaline Phosphatase Cancelled Total Protein Cancelled Albumin Cancelled Urine Color YELLOW Urine Appearance SLIGHTLY-CLOUDY Urine pH 5.0 Ur Specific [place] 1.027 Urine Protein 100 H Urine Glucose (UA) NEGATIVE Urine Ketones TRACE H Urine Blood MODERATE H Urine Nitrite NEGATIVE Ur Leukocyte Esterase NEGATIVE Urine WBC (Auto) 8 Urine RBC (Auto) 8 08/16/19 08/16/19 08/16/19 06:18 07:10 07:10 WBC 8.5 RBC 2.64 L Hgb 8.3 L Hct 23.7 L MCV 90 MCH 31.3 MCHC 34.8 RDW 14.6 H Plt Count 177 Seg Neutrophils % Not Reportable Carbonic Acid 0.92 L HCO3/H2CO3 Ratio 24:1 ABG pH 7.48 H ABG pCO2 30.7 L ABG pO2 73.1 L ABG HCO3 22.4 ABG O2 Saturation 95.8 ABG Base Excess -0.6 FiO2 60% Sodium 136.3 L Potassium 4.2 Chloride 100 Carbon Dioxide 23 Anion Gap 13 BUN 74 H Creatinine 4.70 H Est GFR ( Amer) 11 L Est GFR (Non-Af Amer) Glucose 95 Calcium 8.4 Phosphorus 3.5 Magnesium 2.4 H Total Bilirubin 0.8 AST 30 Alkaline Phosphatase 85 Total Protein 5.3 L Albumin 2.8 L Urine Color Urine Appearance Urine pH Ur Specific [place] Urine Protein Urine Glucose (UA) Urine Ketones Urine Blood Urine Nitrite Ur Leukocyte Esterase Urine WBC (Auto) Urine RBC (Auto) 08/14/19 20:20 Sputum Gram Stain - Final 08/14/19 20:20 Sputum Sputum Culture - Final 08/08/19 08/08/19 08/15/19 12:15 18:45 06:34 Troponin I 0.040 NT-Pro-B Natriuret Pep 34012 H 29998 H Impressions: Chest/Abdomen CTA 08/15/19 16:14 IMPRESSION: 1. Study degraded by motion artifact. No definite evidence for pulmonary emboli. 2. Cardiomegaly. Coronary artery calcifications. 3. Emphysema. Small bilateral pleural effusions. Bilateral airspace opacities, may be secondary to multifocal pneumonia; follow-up CT after treatment rec ommended to ensure complete resolution and exclude underlying neoplasm. 4. Mild mediastinal and right hilar adenopathy. 5. Small abdominal ascites. Mildly dilated common bile duct status post cholec ystectomy. Chest X-Ray 08/16/19 00:00 IMPRESSION: The tip and side hole of the enteric tube project within the gastric lumen. All labs, radiographs, diagnostic studies and EKGs were personally reviewed: Yes In addition, reports of radiographic and diagnostic studies were read: Yes Assessment and Plan - Diagnosis (1) Acute hypoxemic respiratory failure Is this a current diagnosis for this admission?: Yes Plan: Currently tolerating hemodialysis while on CPAP 5, FiO2 50%. ABG 2 hours after completion of hemodialysis today. Anticipating trial of high flow nasal cannula in a.m. It is unclear whether the patient is truly BiPAP dependent at this time. Nonetheless, attempting to provide enteral feeding via NG tube in this patient poses a high risk of emesis/aspiration. (2) Acute decompensated heart failure Is this a current diagnosis for this admission?: Yes Plan: LVEF 50-55% on 2D echo 08/15/2019. (3) Atrial fibrillation Qualifiers: Atrial fibrillation type: longstanding persistent Qualified Code(s): I48.11 - Longstanding persistent atrial fibrillation Is this a current diagnosis for this admission?: Yes (4) End stage renal failure on dialysis Is this a current diagnosis for this admission?: Yes Plan: Hemodialysis per nephrology. (5) COPD (chronic obstructive pulmonary disease) Qualifiers: COPD type: unspecified COPD Is this a current diagnosis for this admission?: Yes Plan: DuoNeb/Pulmicort. Solu-Medrol 40 mg IV daily. (6) Coronary artery disease Qualifiers: Coronary Disease-Associated Artery/Lesion type: [place] artery [place] vs. transplanted heart: [place] heart Associated angina: without angina Qualified Code(s): I25.10 - Atherosclerotic heart disease of [place] coronary artery without angina pectoris Is this a current diagnosis for this admission?: Yes Critical Time Critical Time (minutes): 60 Level of Care: ICU -: 1. The care of a critical patient is a dynamic process. This note is a represe ntative synopsis but static in nature. The timeframe for treatments given in order is not necessarily the actual time these treatments may have been done. 2. This patient requires critical care secondary to ongoing requirements for therapy not offered or safe outside the critical care environment. Transfer to a lower level of care will result in altered life or limb morbidity and mortality. 3. Multidisciplinary rounds completed. 4. ABCDE bundle addressed.
[2019-08-16] MEDS: METHYLPREDNISOLONE INJ 40 MG/1 ML SDV IV SCH (17:08)
[2019-08-16] MEDS ORDERED: LEVOFLOXACIN 750 MG/D5W RTU 750 MG/150 ML RTUPB IV ONE (18:00)
[2019-08-16 18:55] LABS: ARTERIAL BLOOD BASE EXCESS 5.5 mmol/L; ARTERIAL BLOOD H2CO3 0.94 mmol/L (1.05-1.35); ARTERIAL BLOOD HCO3 27.6 mmol/L (20-24); ARTERIAL BLOOD O2 SATURATION 91.6 % (94-98); ARTERIAL BLOOD PCO2 31.1 mmHg (35-45); ARTERIAL BLOOD PH 7.57 (7.35-7.45); ARTERIAL BLOOD TOTAL CO2 28.6 mmol/L (21-25)
[2019-08-16 18:58] LABS: ARTERIAL BLOOD FIO2 50%
[2019-08-16] MEDS: BUDESONIDE NEB 0.25 MG/2 ML AMPUL NEB SCH (20:40)
[2019-08-16] MEDS ORDERED: VANCOMYCIN HCL 1,500 MG in DEXTROSE 5%-WATER 250 ML IV ONE (22:00)
[2019-08-16] MEDS ORDERED: VANCOMYCIN HCL INJ 1000 MG VIAL IV SCH (22:00)
[2019-08-16] MEDS: ATORVASTATIN CALCIUM 20 MG TABLET PO SCH (22:41)
--- NOTE | 2019-08-16 22:53 | PDOC PROGRESS REPORT ---
Subjective Progress Note for:: 08/16/19 Subjective:: 10:56AM. Reviewed chart. Patient was initially admitted to the intensive care unit last week from August 08 August 13. She was transferred to the [facility]. However since Friday the patient is being maintained on BiPAP and is struggling to breathe's and does not seem to be getting better. When I saw her this morning she seems to be still on respiratory distress despite the BiPAP. She is awake but unable to really verbalize much while on BiPAP. Yesterday a pulmonary consult was obtained with Dr. Stinson. He recommended doing a CTA which showed negative for pulmonary embolism but showed emphysema, small bilateral effusion and some multifocal possible pneumonia. Her Doppler of lower extremities is negative for DVT. Her echocardiogram showed ejection fraction of 50 to 55% with moderate pulmonary hypertension. She also has some sinus arrhythmia. She had a dialysis treatment last Friday. 2:03 p.m. Patient is transferred to intensive care unit initially just for dialysis treatment. I am seeing the patient during initiation of dialysis. She is still in distress despite the BiPAP. She will be monitored throughout dialysis treatment and evaluated after dialysis if the patient can actually go back to [facility] or stay in the ICU. Reason For Visit: ACUTE ON CHRONIC RESPIRATORY FAILURE,ESRD Physical Exam Vital Signs: Temp Pulse Resp BP Pulse Ox 97.3 F 85 26 H 148/81 H 94 08/16/19 07:57 08/16/19 08:10 08/16/19 08:10 08/16/19 07:57 08/16/19 08:10 Intake & Output 08/15/19 08/16/19 08/17/19 06:59 06:59 06:59 Intake Total 1061 1200 Output Total 551 525 Balance 510 675 Weight 78.6 kg 78.6 kg Vitals during dialysis: Blood pressure 140/88, pulse rate of 90, blood flow rate of 350 mL/min and dialysate flow rate of 600 mL/min. She is currently on BiPAP with FiO2 of 60%. Exam: General appearance: PRESENT: Patient in acute respiratory distress and currently on BiPAP but continues to struggle, well-developed, well-nourished Head exam: PRESENT: atraumatic, normocephalic Eye exam: PRESENT: conjunctiva pale, PERRLA. ABSENT: scleral icterus Neck exam: ABSENT: JVD Respiratory exam: PRESENT: Diminished breath sounds. Positive diffuse rhonchi anteriorly and posteriorly ABSENT: crackles, rales, wheezes Cardiovascular exam: PRESENT: Regular rate rhythm -+S1, +S2. Tachycardic ABSENT: diastolic murmur, systolic murmur GI/Abdominal exam: PRESENT: normal bowel sounds, soft. ABSENT: guarding, mass, tenderness Extremities exam: ABSENT: No edema Neurological exam: PRESENT: alert, awake, follows certain commands. Skin exam: PRESENT: dry, warm, Cardiovascular exam: PRESENT: +S1, +S2 GI/Abdominal exam: PRESENT: normal bowel sounds, soft, tenderness - She is tender around the exit site of the recently placed PD catheter. However there is no signs of redness or exit site infection.. ABSENT: distended, guarding, organomegaly, rebound Results Laboratory Results: 08/16/19 07:10 08/16/19 07:10 08/15/19 08/16/19 08/16/19 06:34 05:03 05:03 WBC Cancelled RBC Cancelled Hgb Cancelled Hct Cancelled MCV Cancelled MCH Cancelled MCHC Cancelled RDW Cancelled Plt Count Cancelled Seg Neutrophils % Cancelled Carbonic Acid HCO3/H2CO3 Ratio ABG pH ABG pCO2 ABG pO2 ABG HCO3 ABG O2 Saturation ABG Base Excess FiO2 Sodium Cancelled Potassium Cancelled Chloride Cancelled Carbon Dioxide Cancelled Anion Gap Cancelled BUN Cancelled Creatinine Cancelled Est GFR ( Amer) Cancelled Est GFR (Non-Af Amer) Cancelled Glucose Cancelled Calcium Cancelled Phosphorus Cancelled Magnesium Cancelled Total Bilirubin Cancelled AST Cancelled Alkaline Phosphatase Cancelled Total Protein Cancelled Albumin Cancelled Free T4 1.44 Free T3 pg/mL 1.06 L Urine Color Urine Appearance Urine pH Ur Specific [place] Urine Protein Urine Glucose (UA) Urine Ketones Urine Blood Urine Nitrite Ur Leukocyte Esterase Urine WBC (Auto) Urine RBC (Auto) 08/16/19 08/16/19 08/16/19 06:08 06:18 07:10 WBC 8.5 RBC 2.64 L Hgb 8.3 L Hct 23.7 L MCV 90 MCH 31.3 MCHC 34.8 RDW 14.6 H Plt Count 177 Seg Neutrophils % Not Reportable Carbonic Acid 0.92 L HCO3/H2CO3 Ratio 24:1 ABG pH 7.48 H ABG pCO2 30.7 L ABG pO2 73.1 L ABG HCO3 22.4 ABG O2 Saturation 95.8 ABG Base Excess -0.6 FiO2 60% Sodium Potassium Chloride Carbon Dioxide Anion Gap BUN Creatinine Est GFR ( Amer) Est GFR (Non-Af Amer) Glucose Calcium Phosphorus Magnesium Total Bilirubin AST Alkaline Phosphatase Total Protein Albumin Free T4 Free T3 pg/mL Urine Color YELLOW Urine Appearance SLIGHTLY-CLOUDY Urine pH 5.0 Ur Specific [place] 1.027 Urine Protein 100 H Urine Glucose (UA) NEGATIVE Urine Ketones TRACE H Urine Blood MODERATE H Urine Nitrite NEGATIVE Ur Leukocyte Esterase NEGATIVE Urine WBC (Auto) 8 Urine RBC (Auto) 8 08/16/19 07:10 WBC RBC Hgb Hct MCV MCH MCHC RDW Plt Count Seg Neutrophils % Carbonic Acid HCO3/H2CO3 Ratio ABG pH ABG pCO2 ABG pO2 ABG HCO3 ABG O2 Saturation ABG Base Excess FiO2 Sodium 136.3 L Potassium 4.2 Chloride 100 Carbon Dioxide 23 Anion Gap 13 BUN 74 H Creatinine 4.70 H Est GFR ( Amer) 11 L Est GFR (Non-Af Amer) Glucose 95 Calcium 8.4 Phosphorus 3.5 Magnesium 2.4 H Total Bilirubin 0.8 AST 30 Alkaline Phosphatase 85 Total Protein 5.3 L Albumin 2.8 L Free T4 Free T3 pg/mL Urine Color Urine Appearance Urine pH Ur Specific [place] Urine Protein Urine Glucose (UA) Urine Ketones Urine Blood Urine Nitrite Ur Leukocyte Esterase Urine WBC (Auto) Urine RBC (Auto) 08/14/19 20:20 Sputum Gram Stain - Final 08/14/19 20:20 Sputum Sputum Culture - Final 08/08/19 08/08/19 08/15/19 12:15 18:45 06:34 Troponin I 0.040 NT-Pro-B Natriuret Pep 44582 H 24600 H Impressions: Chest X-Ray 08/13/19 18:00 IMPRESSION: Slightly increased interstitial prominence, greater on the left. Persistent confluent airspace-nodular opacities in the right mid lung. Slightly increased left pleural effusion. Chest/Abdomen CTA 08/15/19 16:14 IMPRESSION: 1. Study degraded by motion artifact. No definite evidence for pulmonary emboli. 2. Cardiomegaly. Coronary artery calcifications. 3. Emphysema. Small bilateral pleural effusions. Bilateral airspace opacities, may be secondary to multifocal pneumonia; follow-up CT after treatment recommended to ensure complete resolution and exclude underlying neoplasm. 4. Mild mediastinal and right hilar adenopathy. 5. Small abdominal ascites. Mildly dilated common bile duct status post cholecystectomy. Assessment & Plan - Diagnosis (1) Acute hypoxemic respiratory failure Is this a current diagnosis for this admission?: Yes Plan: Patient is currently on BiPAP. Patient's negative for acute pulmonary embolism. Contributory factors include bilateral pneumonia, COPD with some interstitial edema. Patient will be reevaluated after dialysis if she can go back to IMCU or just stay in the ICU. will be asking the ct technologist to evaluate the patient. (2) HCAP (healthcare-associated pneumonia) Is this a current diagnosis for this admission?: Yes Plan: Patient was on cefepime. Currently being initiated on Levaquin and vancomycin. Will defer to hospitalist or ct technologist. (3) Chronic obstructive pulmonary disease with acute exacerbation Is this a current diagnosis for this admission?: Yes (4) End stage renal failure on dialysis Is this a current diagnosis for this admission?: Yes Plan: We will do dialysis today for 3 hours, using the patient's AV fistula, with 2 potassium bath, blood flow rate of 350 mL per minute, dialysate flow rate of 600 mL per minute, ultrafiltration 2 to 2.5 L as tolerated, no heparin and Procrit with 20,000 units during dialysis intravenously. Patient will be monitored throughout dialysis treatment. (5) Pulmonary hypertension Is this a current diagnosis for this admission?: Yes (6) Anemia in chronic kidney disease Is this a current diagnosis for this admission?: Yes Plan: Patient will be given Retacrit during dialysis treatment. (7) Atrial fibrillation Qualifiers: Atrial fibrillation type: longstanding persistent Qualified Code(s): I48.11 - Longstanding persistent atrial fibrillation Is this a current diagnosis for this admission?: Yes (8) HTN (hypertension) Qualifiers: Hypertension type: renovascular hypertension Qualified Code(s): I15.0 - Renovascular hypertension Is this a current diagnosis for this admission?: Yes - Time Time with patient: Greater than 35 minutes
[2019-08-17] MEDS ORDERED: METOPROLOL TARTRATE PF/INJ 5 MG/5 ML SDV IV SCH
[2019-08-17] MEDS: METOPROLOL TARTRATE PF/INJ 5 MG/5 ML SDV IV PRN ×2 (02:10→14:31)
[2019-08-17] MEDS ORDERED: METOPROLOL TARTRATE PF/INJ 5 MG/5 ML SDV IV ONE ×2 (03:38→05:00)
[2019-08-17] MEDS: METOPROLOL TARTRATE PF/INJ 5 MG/5 ML SDV IV SCH ×3 (05:12→17:34)
[2019-08-17] MEDS: HEPARIN SOD (PORCINE) 5,000 UNIT/ML 1 ML VIAL SUBCUT SCH ×3 (05:12→22:54)
[2019-08-17] MEDS: LIOTHYRONINE SODIUM 5 MCG TABLET PO SCH (05:13)
[2019-08-17] MEDS: LEVOTHYROXINE SODIUM 0.075 MG TABLET PO SCH (05:13)
[2019-08-17 05:46] LABS: HEMATOCRIT 26.6 % (36.0-47.0); HEMOGLOBIN 9.2 g/dL (12.0-15.5); MEAN CORPUSCULAR HEMOGLOBIN 31.1 pg (27.0-33.4); MEAN CORPUSCULAR HGB CONC 34.5 g/dL (32.0-36.0); MEAN CORPUSCULAR VOLUME 90 fl (80-97); PLATELET COUNT 211 10^3/uL (150-450); RED BLOOD COUNT 2.96 10^6/uL (3.72-5.28); RED CELL DISTRIBUTION WIDTH 14.8 % (11.5-14.0); WHITE BLOOD COUNT 9.8 10^3/uL (4.0-10.5)
[2019-08-17 06:20] LABS: ANION GAP 10 (5-19); CALCIUM 8.7 mg/dL (8.4-10.2); CARBON DIOXIDE 28 mmol/L (22-30); CHLORIDE 99 mmol/L (98-107); GLUCOSE 119 mg/dL (75-110); POTASSIUM 4.3 mmol/L (3.6-5.0)
[2019-08-17 06:32] LABS: BLOOD UREA NITROGEN 46 mg/dL (7-20)
[2019-08-17] MEDS: FUROSEMIDE 20 MG TABLET PO SCH (08:37)
[2019-08-17] MEDS: PANTOPRAZOLE SODIUM 40 MG TABLET.DR PO SCH (08:38)
[2019-08-17] MEDS: BUDESONIDE NEB 0.25 MG/2 ML AMPUL NEB SCH ×2 (08:50→19:31)
--- NOTE | 2019-08-17 09:55 | PDOC PROGRESS REPORT ---
Subjective Progress Note for:: 08/17/19 Subjective:: Patient appears to be more comfortable today but still on BiPAP. She has been temporarily transferred here in the ICU until she gets better. Patient is more awake and responding a little bit more to questioning. Her son is at bedside. She is unable to verbalize any complaints though. Son informed me that the patient had PD catheter placed on August 06 at [facility]. The plan was for her to switch to peritoneal dialysis since she always has difficulty with the intermittent hemodialysis treatments. At this time no she is not ready to have that to use she had. Patient did not tolerate hemodialysis treatment yesterday with the ultrafiltration of 2 L ago. Reason For Visit: ACUTE ON CHRONIC RESPIRATORY FAILURE,ESRD Physical Exam Vital Signs: Temp Pulse Resp BP Pulse Ox 97.6 F 90 22 H 96/68 L 96 08/17/19 08:00 08/17/19 09:04 08/17/19 09:04 08/17/19 08:00 08/17/19 09:04 Intake & Output 08/16/19 08/17/19 08/18/19 06:59 06:59 06:59 Intake Total 1200 50 Output Total 525 2200 5 Balance 675 -2150 -5 Weight 78.6 kg 76.9 kg Exam: General appearance: PRESENT: Patient still on BiPAP but more awake, answers few questions, cooperative, well-developed, well-nourished Head exam: PRESENT: atraumatic, normocephalic Eye exam: PRESENT: conjunctiva slightly pale, PERRLA. ABSENT: scleral icterus Neck exam: ABSENT: JVD Respiratory exam: PRESENT: Diminished breath sounds. Bilateral diffuse crackles ABSENT: Rhonchi, unlabored, wheezes Cardiovascular exam: PRESENT: Regular rate rhythm -+S1, +S2. ABSENT: diastolic murmur, systolic murmur GI/Abdominal exam: PRESENT: normal bowel sounds, soft. PD catheter in place with perfect exit site without any drainage. ABSENT: guarding, mass, tenderness Extremities exam: ABSENT: No edema Neurological exam: PRESENT: alert, awake, oriented to person, place and time. Skin exam: PRESENT: dry, warm, Cardiovascular exam: PRESENT: +S1, +S2 GI/Abdominal exam: PRESENT: normal bowel sounds, soft, tenderness - She is tender around the exit site of the recently placed PD catheter. However there is no signs of redness or exit site infection.. ABSENT: distended, guarding, organomegaly, rebound Results Laboratory Results: 08/17/19 05:35 08/17/19 05:35 08/16/19 08/17/19 08/17/19 18:45 05:35 05:35 WBC 9.8 RBC 2.96 L Hgb 9.2 L Hct 26.6 L MCV 90 MCH 31.1 MCHC 34.5 RDW 14.8 H Plt Count 211 Carbonic Acid 0.94 L HCO3/H2CO3 Ratio 29:1 ABG pH 7.57 H ABG pCO2 31.1 L ABG pO2 52.0 L ABG HCO3 27.6 H ABG O2 Saturation 91.6 L ABG Base Excess 5.5 FiO2 50% Sodium 137.4 Potassium 4.3 Chloride 99 Carbon Dioxide 28 Anion Gap 10 BUN 46 H D Creatinine 3.22 H Est GFR ( Amer) 17 L Glucose 119 H Calcium 8.7 08/08/19 08/08/19 08/15/19 12:15 18:45 06:34 Troponin I 0.040 NT-Pro-B Natriuret Pep 97078 H 39928 H Impressions: Chest/Abdomen CTA 08/15/19 16:14 IMPRESSION: 1. Study degraded by motion artifact. No definite evidence for pulmonary emboli. 2. Cardiomegaly. Coronary artery calcifications. 3. Emphysema. Small bilateral pleural effusions. Bilateral airspace opacities, may be secondary to multifocal pneumonia; follow-up CT after treatment recommen ded to ensure complete resolution and exclude underlying neoplasm. 4. Mild mediastinal and right hilar adenopathy. 5. Small abdominal ascites. Mildly dilated common bile duct status post cholecystectomy. Chest X-Ray 08/16/19 00:00 IMPRESSION: The tip and side hole of the enteric tube project within the gastric lumen. Assessment & Plan - Diagnosis (1) Acute hypoxemic respiratory failure Is this a current diagnosis for this admission?: Yes Plan: Patient is currently on BiPAP. Patient's negative for acute pulmonary embolism. Contributory factors include possible bilateral pneumonia, COPD with some interstitial edema. Management per exterminator helper. (2) HCAP (healthcare-associated pneumonia) Is this a current diagnosis for this admission?: Yes Plan: Patient was on cefepime. Currently being initiated on Levaquin and vancomycin. Will defer to exterminator helper. (3) Chronic obstructive pulmonary disease with acute exacerbation Is this a current diagnosis for this admission?: Yes Plan: Currently on IV methylprednisolone. (4) End stage renal failure on dialysis Is this a current diagnosis for this admission?: Yes Plan: We will continue intermittent hemodialysis while here in the hospital. Next dialysis will be tomorrow. I talked to the patient's nurse today, Crystal to do exit site care and to change the PD catheter dressing today using gentamicin cream. (5) Pulmonary hypertension Is this a current diagnosis for this admission?: Yes (6) Anemia in chronic kidney disease Is this a current diagnosis for this admission?: Yes Plan: Patient will be given Retacrit during dialysis treatment. (7) Atrial fibrillation Qualifiers: Atrial fibrillation type: longstanding persistent Qualified Code(s): I48.11 - Longstanding persistent atrial fibrillation Is this a current diagnosis for this admission?: Yes (8) HTN (hypertension) Qualifiers: Hypertension type: renovascular hypertension Qualified Code(s): I15.0 - Renovascular hypertension Is this a current diagnosis for this admission?: Yes - Time Time with patient: 15-25 minutes
[2019-08-17] MEDS: ASPIRIN 81 MG TABLET, ENT COATED PO SCH (10:36)
[2019-08-17] MEDS: MEGESTROL ACETATE 20 MG TABLET PO SCH (10:36)
[2019-08-17] MEDS: CHOLECALCIFEROL (D3) 1,000 UNIT (25 MCG) TABLET PO SCH (10:37)
[2019-08-17] MEDS: GENTAMICIN SULFATE 0.1% CREAM 15 GM TP SCH (12:17)
--- NOTE | 2019-08-17 12:17 | PDOC CRITICAL CARE PROG REPORT ---
General Date:: 08/17/19 ICU Day:: 2 Hospital Day:: 10 Resuscitation Status: Full Code Events in the past 12 to 24 Hours:: This 79-year-old female originally presented to [facility] on 08/08/2019 with complaints of respiratory distress. She was evaluated by Dr. Karen Rodriguez and admitted to the ICU (see H&P 08/08/2019 1752). She presented with a proBNP of 28,400. She was treated for acute on chronic hypoxemic respiratory failure. She has a known history of end-stage renal disease, COPD and obstructive sleep apnea. She was hospitalized in the intensive care unit from 08/08 to 08/13, when she transferred out to the floor. Based on discussion with Dr. Garcia today, the patient has struggled with persistent dyspnea and increasing FiO2 requirement, apparently requiring BiPAP support. At the time of clinical interview, the patient has transferred to the ICU for her hemodialysis session. proBNP is now over 60,000. She is on BiPAP 20/02, FiO2 65%. Review of systems relevant to events:: Respiratory, renal Reason for ICU Addmission:: acute on chronic respiratory failure, ESRD - Medications: Medications reviewed and adjusted accordingly: Yes Physical Exam Vital Signs: Temp Pulse Resp BP Pulse Ox 97.6 F 91 21 H 141/87 H 99 08/17/19 08:00 08/17/19 10:00 08/17/19 10:00 08/17/19 10:00 08/17/19 10:00 Intake & Output 08/16/19 08/17/19 08/18/19 06:59 06:59 06:59 Intake Total 1200 50 Output Total 525 2200 15 Balance 675 -2150 -15 Weight 78.6 kg 76.9 kg Weight/Height Weight 76.9 kg Height 1.57 m General appearance: PRESENT: no acute distress, well-developed, other - On CPAP 5, FiO2 70% Head exam: PRESENT: atraumatic, normocephalic Eye exam: PRESENT: conjunctiva pink, EOMI, PERRLA. ABSENT: scleral icterus Neck exam: ABSENT: carotid bruit, JVD, lymphadenopathy, thyromegaly Respiratory exam: PRESENT: clear to auscultation ashanti, rales. ABSENT: rhonchi, wheezes Cardiovascular exam: PRESENT: irregular rhythm. ABSENT: diastolic murmur, rubs, systolic murmur Pulses: PRESENT: normal dorsalis pedis pul GI/Abdominal exam: PRESENT: normal bowel sounds, soft. ABSENT: distended, guarding, mass, rebound, tenderness Extremities exam: PRESENT: full ROM. ABSENT: calf tenderness, clubbing, pedal edema Musculoskeletal exam: PRESENT: normal inspection Neurological exam: PRESENT: alert, awake, oriented to person, oriented to place, oriented to situation, CN II-XII grossly intact. ABSENT: motor sensory deficit Psychiatric exam: PRESENT: anxious Skin exam: PRESENT: dry, intact, warm. ABSENT: cyanosis, rash Tubes/Lines: PRESENT: Other - PD catheter Laboratory/Radiographs Laboratory Results: 08/17/19 05:35 08/17/19 05:35 08/16/19 08/17/19 08/17/19 18:45 05:35 05:35 WBC 9.8 RBC 2.96 L Hgb 9.2 L Hct 26.6 L MCV 90 MCH 31.1 MCHC 34.5 RDW 14.8 H Plt Count 211 Carbonic Acid 0.94 L HCO3/H2CO3 Ratio 29:1 ABG pH 7.57 H ABG pCO2 31.1 L ABG pO2 52.0 L ABG HCO3 27.6 H ABG O2 Saturation 91.6 L ABG Base Excess 5.5 FiO2 50% Sodium 137.4 Potassium 4.3 Chloride 99 Carbon Dioxide 28 Anion Gap 10 BUN 46 H D Creatinine 3.22 H Est GFR ( Amer) 17 L Glucose 119 H Calcium 8.7 08/08/19 08/08/19 08/15/19 12:15 18:45 06:34 Troponin I 0.040 NT-Pro-B Natriuret Pep 12888 H 37176 H Impressions: Chest/Abdomen CTA 08/15/19 16:14 IMPRESSION: 1. Study degraded by motion artifact. No definite evidence for pulmonary emboli. 2. Cardiomegaly. Coronary artery calcifications. 3. Emphysema. Small bilateral pleural effusions. Bilateral airspace opacities, may be secondary to multifocal pneumonia; follow-up CT after treatment recommended to ensure complete resolution and exclude underlying neoplasm. 4. Mild mediastinal and right hilar adenopathy. 5. Small abdominal ascites. Mildly dilated common bile duct status post cholecystectomy. Chest X-Ray 08/16/19 00:00 IMPRESSION: The tip and side hole of the enteric tube project within the gastric lumen. All labs, radiographs, diagnostic studies and EKGs were personally reviewed: Yes In addition, reports of radiographic and diagnostic studies were read: Yes Assessment and Plan - Diagnosis (1) Acute hypoxemic respiratory failure Is this a current diagnosis for this admission?: Yes Plan: Wean CPAP as tolerated. (2) Acute decompensated heart failure Is this a current diagnosis for this admission?: Yes (3) Atrial fibrillation Qualifiers: Atrial fibrillation type: longstanding persistent Qualified Code(s): I48.11 - Longstanding persistent atrial fibrillation Is this a current diagnosis for this admission?: Yes (4) End stage renal failure on dialysis Is this a current diagnosis for this admission?: Yes (5) COPD (chronic obstructive pulmonary disease) Qualifiers: COPD type: emphysema Emphysema type: unspecified Qualified Code(s): J43.9 - Emphysema, unspecified Is this a current diagnosis for this admission?: Yes Plan: DuoNeb/Pulmicort. Solu-Medrol 40 mg IV daily. (6) Coronary artery disease Qualifiers: Coronary Disease-Associated Artery/Lesion type: [place] artery [place] vs. transplanted heart: [place] heart Associated angina: without angina Qualified Code(s): I25.10 - Atherosclerotic heart disease of [place] coronary artery without angina pectoris Is this a current diagnosis for this admission?: Yes Critical Time Critical Time (minutes): 45 Level of Care: ICU -: 1. The care of a critical patient is a dynamic process. This note is a safety representative synopsis but static in nature. The timeframe for treatments given in order is not necessarily the actual time these treatments may have been done. 2. This patient requires critical care secondary to ongoing requirements for therapy not offered or safe outside the critical care environment. Transfer to a lower level of care will result in altered life or limb morbidity and mortality. 3. Multidisciplinary rounds completed. 4. ABCDE bundle addressed.
[2019-08-17] MEDS ORDERED: IPRATROPIUM/ALBUTEROL 0.5-2.5 MG/3 ML AMPUL NEB SCH (14:00)
[2019-08-17] MEDS: DEXMEDETOMIDINE IN 0.9 % NACL 400 MCG/100 ML RTUPB IV PRN ×2 (15:18→22:46)
[2019-08-17] MEDS: METHYLPREDNISOLONE INJ 40 MG/1 ML SDV IV SCH (17:33)
[2019-08-17] MEDS: ATORVASTATIN CALCIUM 20 MG TABLET PO SCH (22:47)
[2019-08-18] MEDS: METOPROLOL TARTRATE PF/INJ 5 MG/5 ML SDV IV SCH ×4 (01:15→19:14)
[2019-08-18] MEDS ORDERED: NORMAL SALINE 1000 ML 1,000 ML IV PRN (05:00)
[2019-08-18] MEDS ORDERED: EPOETIN ALFA-EPBX 10,000 UNIT in SYRINGE, DISPOSABLE, 1 EACH IV PRN (05:00)
[2019-08-18] MEDS: HEPARIN SOD (PORCINE) 5,000 UNIT/ML 1 ML VIAL SUBCUT SCH ×3 (05:24→23:57)
[2019-08-18] MEDS: LIOTHYRONINE SODIUM 5 MCG TABLET PO SCH (05:24)
[2019-08-18] MEDS: LEVOTHYROXINE SODIUM 0.075 MG TABLET PO SCH (05:25)
[2019-08-18 06:31] LABS: HEMATOCRIT 25.2 % (36.0-47.0); HEMOGLOBIN 8.8 g/dL (12.0-15.5); MEAN CORPUSCULAR HGB CONC 34.8 g/dL (32.0-36.0); MEAN CORPUSCULAR VOLUME 89 fl (80-97); PLATELET COUNT 210 10^3/uL (150-450); RED BLOOD COUNT 2.83 10^6/uL (3.72-5.28); RED CELL DISTRIBUTION WIDTH 14.9 % (11.5-14.0); WHITE BLOOD COUNT 8.6 10^3/uL (4.0-10.5)
[2019-08-18 06:58] LABS: ANION GAP 13 (5-19); BLOOD UREA NITROGEN 73 mg/dL (7-20); CALCIUM 8.1 mg/dL (8.4-10.2); CARBON DIOXIDE 25 mmol/L (22-30); CHLORIDE 100 mmol/L (98-107); GLUCOSE 121 mg/dL (75-110); POTASSIUM 4.8 mmol/L (3.6-5.0)
[2019-08-18 07:27] LABS: ABSOLUTE LYMPHOCYTES# (MANUAL) 0.3 10^3/uL (0.5-4.7); ABSOLUTE MONOCYTES # (MANUAL) 0.1 10^3/uL (0.1-1.4); BASOPHILS % (MANUAL) 0 % (0-2); EOSINOPHILS % (MANUAL) 0 % (0-6); LYMPHOCYTES % (MANUAL) 1 % (13-45); MONOCYTES % (MANUAL) 1 % (3-13); NUCLEATED RED BLOOD CELLS 1 /100 WBC (0); SEGMENTED NEUTROPHILS % (MAN) 96 % (42-78); TOTAL CELLS COUNTED 100
[2019-08-18 07:28] LABS: ANISOCYTOSIS SLIGHT; PLATELET COMMENT ADEQUATE; POLYCHROMASIA SLIGHT
[2019-08-18] MEDS: BUDESONIDE NEB 0.25 MG/2 ML AMPUL NEB SCH ×2 (08:57→20:55)
[2019-08-18] MEDS: PANTOPRAZOLE SODIUM 40 MG TABLET.DR PO SCH (11:01)
[2019-08-18] MEDS: MEGESTROL ACETATE 20 MG TABLET PO SCH (11:02)
[2019-08-18] MEDS: ASPIRIN 81 MG TABLET, ENT COATED PO SCH (11:02)
[2019-08-18] MEDS: CHOLECALCIFEROL (D3) 1,000 UNIT (25 MCG) TABLET PO SCH (11:02)
[2019-08-18] MEDS: VITAMIN B COMPLEX TABLET PO SCH (12:17)
--- NOTE | 2019-08-18 12:59 | PDOC CRITICAL CARE PROG REPORT ---
General Date:: 08/18/19 ICU Day:: 3 Hospital Day:: 11 Resuscitation Status: Full Code Events in the past 12 to 24 Hours:: The patient is resting comfortably on CPAP 5, FiO2 55%. SPO2 95 to 97%. The patient was able to achieve some rest/sleep on Precedex. She is in much better spirits and looks much more rested today. Review of systems relevant to events:: Respiratory, renal Reason for ICU Addmission:: acute on chronic respiratory failure, ESRD - Medications: Medications reviewed and adjusted accordingly: Yes Physical Exam Vital Signs: Temp Pulse Resp BP Pulse Ox 99.4 F 79 22 H 121/77 97 08/18/19 12:00 08/18/19 12:00 08/18/19 12:00 08/18/19 12:00 08/18/19 12:00 Intake & Output 08/17/19 08/18/19 08/19/19 06:59 06:59 06:59 Intake Total 50 100 100 Output Total 2200 265 65 Balance -2150 -165 35 Weight 76.9 kg 73.9 kg Weight/Height Weight 73.9 kg Height 1.57 m General appearance: PRESENT: no acute distress, well-developed, other - On CPAP Eye exam: PRESENT: conjunctiva pink, EOMI, PERRLA. ABSENT: scleral icterus Mouth exam: PRESENT: dry mucosa, moist, tongue midline Respiratory exam: PRESENT: clear to auscultation ash[place], crackles. ABSENT: rhonchi, wheezes Cardiovascular exam: PRESENT: irregular rhythm. ABSENT: diastolic murmur, rubs, systolic murmur Pulses: PRESENT: normal dorsalis pedis pul GI/Abdominal exam: PRESENT: normal bowel sounds, soft. ABSENT: distended, guarding, mass, organolmegaly, rebound, tenderness Extremities exam: PRESENT: full ROM, pedal edema, +1 edema. ABSENT: calf tenderness, clubbing Musculoskeletal exam: PRESENT: normal inspection Neurological exam: PRESENT: alert, awake, oriented to person, oriented to place, oriented to time, oriented to situation, CN II-XII grossly intact. ABSENT: motor sensory deficit Psychiatric exam: PRESENT: appropriate affect, normal mood. ABSENT: homicidal ideation, suicidal ideation Skin exam: PRESENT: dry, intact, warm. ABSENT: cyanosis, rash Laboratory/Radiographs Laboratory Results: 08/18/19 06:14 08/18/19 06:14 08/18/19 08/18/19 06:14 06:14 WBC 8.6 RBC 2.83 L Hgb 8.8 L Hct 25.2 L MCV 89 MCH 31.0 MCHC 34.8 RDW 14.9 H Plt Count 210 Seg Neutrophils % Not Reportable Sodium 138.4 Potassium 4.8 Chloride 100 Carbon Dioxide 25 Anion Gap 13 BUN 73 H Creatinine 4.41 H Est GFR ( Amer) 12 L Glucose 121 H Calcium 8.1 L 08/15/19 21:30 Sputum Gram Stain - Final 08/15/19 21:30 Sputum Sputum Culture - Final C.albicans/C.dubliniensis Normal Saima Absent 08/08/19 08/08/19 08/15/19 12:15 18:45 06:34 Troponin I 0.040 NT-Pro-B Natriuret Pep 02336 H 18315 H Impressions: Chest/Abdomen CTA 08/15/19 16:14 IMPRESSION: 1. Study degraded by motion artifact. No definite evidence for pulmonary emboli. 2. Cardiomegaly. Coronary artery calcifications. 3. Emphysema. Small bilateral pleural effusions. Bilateral airspace opacities, may be secondary to multifocal pneumonia; follow-up CT after treatment recommended to ensure complete resolution and exclude underlying neoplasm. 4. Mild mediastinal and right hilar adenopathy. 5. Small abdominal ascites. Mildly dilated common bile duct status post cholecystectomy. Chest X-Ray 08/16/19 00:00 IMPRESSION: The tip and side hole of the enteric tube project within the gastric lumen. All labs, radiographs, diagnostic studies and EKGs were personally reviewed: Yes In addition, reports of radiographic and diagnostic studies were read: Yes Assessment and Plan - Diagnosis (1) Acute hypoxemic respiratory failure Is this a current diagnosis for this admission?: Yes Plan: Wean CPAP as tolerated. We will try high flow nasal cannula today. (2) Acute decompensated heart failure Is this a current diagnosis for this admission?: Yes Plan: LVEF 50-55% on 2D echo 08/15/2019. (3) Atrial fibrillation Qualifiers: Atrial fibrillation type: longstanding persistent Qualified Code(s): I48.11 - Longstanding persistent atrial fibrillation Is this a current diagnosis for this admission?: Yes (4) End stage renal failure on dialysis Is this a current diagnosis for this admission?: Yes Plan: Hemodialysis per nephrology. (5) COPD (chronic obstructive pulmonary disease) Qualifiers: COPD type: emphysema Emphysema type: unspecified Qualified Code(s): J43.9 - Emphysema, unspecified Is this a current diagnosis for this admission?: Yes (6) Coronary artery disease Qualifiers: Coronary Disease-Associated Artery/Lesion type: [place] artery [place] vs. transplanted heart: [place] heart Associated angina: without angina Qualified Code(s): I25.10 - Atherosclerotic heart disease of [place] coronary artery without angina pectoris Is this a current diagnosis for this admission?: Yes Critical Time Critical Time (minutes): 45 Level of Care: ICU -: 1. The care of a critical patient is a dynamic process. This note is a field support representative synopsis but static in nature. The timeframe for treatments given in order is not necessarily the actual time these treatments may have been done. 2. This patient requires critical care secondary to ongoing requirements for therapy not offered or safe outside the critical care environment. Transfer to a lower level of care will result in altered life or limb morbidity and mortality. 3. Multidisciplinary rounds completed. 4. ABCDE bundle addressed.
[2019-08-18] MEDS: GENTAMICIN SULFATE 0.1% CREAM 15 GM TP SCH (13:46)
[2019-08-18] MEDS ORDERED: VANCOMYCIN HCL 750 MG in DEXTROSE 5%-WATER 250 ML IV SCH (18:00)
[2019-08-18] MEDS: METHYLPREDNISOLONE INJ 40 MG/1 ML SDV IV SCH (20:38)
--- NOTE | 2019-08-18 22:32 | PDOC PROGRESS REPORT ---
Subjective Progress Note for:: 08/18/19 Subjective:: I am seeing the patient during dialysis treatment today in the ICU. Patient looks much better today even though she is still on BiPAP. She is awake and responding to questioning although difficult to understand because of the BiPAP. Patient's blood pressure has gone down so we are decreasing the ultrafiltration rate. Other than that she is doing okay. Reason For Visit: ACUTE ON CHRONIC RESPIRATORY FAILURE,ESRD Physical Exam Vital Signs: Temp Pulse Resp BP Pulse Ox 99.4 F 91 18 98/69 L 92 08/18/19 12:00 08/18/19 14:00 08/18/19 14:00 08/18/19 14:00 08/18/19 14:00 Intake & Output 08/17/19 08/18/19 08/19/19 06:59 06:59 06:59 Intake Total 50 100 100 Output Total 2200 265 95 Balance -2150 -165 5 Weight 76.9 kg 73.9 kg Vitals during dialysis: Blood pressure of 81/62, heart rate of 96, respiration of 24, oxygen saturation of 98%, blood flow rate of 290 mL/min and dialysate flow rate of 600 mL/min. Exam: General appearance: PRESENT: Patient still on BiPAP Head exam: PRESENT: atraumatic, normocephalic Eye exam: PRESENT: conjunctiva slightly pale, PERRLA. ABSENT: scleral icterus Neck exam: ABSENT: JVD Respiratory exam: PRESENT: Diminished breath sounds. ABSENT: crackles, rales, rhonchi, unlabored, wheezes Cardiovascular exam: PRESENT: Regular rate rhythm -+S1, +S2. ABSENT: diastolic murmur, systolic murmur GI/Abdominal exam: PRESENT: normal bowel sounds, soft. ABSENT: guarding, mass, tenderness Extremities exam: ABSENT: No edema Neurological exam: PRESENT: alert, awake, responding to questions. Skin exam: PRESENT: dry, warm, Cardiovascular exam: PRESENT: +S1, +S2 GI/Abdominal exam: PRESENT: normal bowel sounds, soft, tenderness - She is tender around the exit site of the recently placed PD catheter. However there is no signs of redness or exit site infection.. ABSENT: distended, guarding, organomegaly, rebound Results Laboratory Results: 08/18/19 06:14 08/18/19 06:14 08/18/19 08/18/19 06:14 06:14 WBC 8.6 RBC 2.83 L Hgb 8.8 L Hct 25.2 L MCV 89 MCH 31.0 MCHC 34.8 RDW 14.9 H Plt Count 210 Seg Neutrophils % Not Reportable Sodium 138.4 Potassium 4.8 Chloride 100 Carbon Dioxide 25 Anion Gap 13 BUN 73 H Creatinine 4.41 H Est GFR ( Amer) 12 L Glucose 121 H Calcium 8.1 L 08/15/19 21:30 Sputum Gram Stain - Final 08/15/19 21:30 Sputum Sputum Culture - Final C.albicans/C.dubliniensis Normal Saima Absent 08/08/19 08/08/19 08/15/19 12:15 18:45 06:34 Troponin I 0.040 NT-Pro-B Natriuret Pep 54848 H 31957 H Impressions: Chest/Abdomen CTA 08/15/19 16:14 IMPRESSION: 1. Study degraded by motion artifact. No definite evidence for pulmonary emboli. 2. Cardiomegaly. Coronary artery calcifications. 3. Emphysema. Small bilateral pleural effusions. Bilateral airspace opacities, may be secondary to multifocal pneumonia; follow-up CT after treatment re commended to ensure complete resolution and exclude underlying neoplasm. 4. Mild mediastinal and right hilar adenopathy. 5. Small abdominal ascites. Mildly dilated common bile duct status post [place] cystectomy. Chest X-Ray 08/16/19 00:00 IMPRESSION: The tip and side hole of the enteric tube project within the gastric lumen. Assessment & Plan - Diagnosis (1) Acute hypoxemic respiratory failure Is this a current diagnosis for this admission?: Yes Plan: Patient is currently on BiPAP. Patient's negative for acute pulmonary embolism. Contributory factors include possible bilateral pneumonia, COPD with some interstitial edema. Management per project intern. (2) HCAP (healthcare-associated pneumonia) Is this a current diagnosis for this admission?: Yes Plan: Patient was on cefepime. Currently being initiated on Levaquin and vancomycin. Will defer to project intern. (3) Chronic obstructive pulmonary disease with acute exacerbation Is this a current diagnosis for this admission?: Yes Plan: Currently on IV methylprednisolone. (4) End stage renal failure on dialysis Is this a current diagnosis for this admission?: Yes Plan: We will do dialysis today for 3 hours, using the patient's AV fistula, with 2 potassium bath, blood flow rate of 300 mL per minute, dialysate flow rate of [600] mL per minute, ultrafiltration 2 L as tolerated, plan and Procrit with 10,000 units during dialysis intravenously. Patient is being continuously monitored throughout dialysis treatment. Ultrafiltration is adjusted according to the patient blood pressure. (5) Pulmonary hypertension Is this a current diagnosis for this admission?: Yes (6) Anemia in chronic kidney disease Is this a current diagnosis for this admission?: Yes Plan: Patient will be given Retacrit during dialysis treatment. (7) Atrial fibrillation Qualifiers: Atrial fibrillation type: longstanding persistent Qualified Code(s): I48.11 - Longstanding persistent atrial fibrillation Is this a current diagnosis for this admission?: Yes (8) HTN (hypertension) Qualifiers: Hypertension type: renovascular hypertension Qualified Code(s): I15.0 - Renovascular hypertension Is this a current diagnosis for this admission?: Yes - Time Time with patient: 15-25 minutes
[2019-08-18] MEDS ORDERED: TRAZODONE HCL 50 MG TABLET PO ONE (23:30)
[2019-08-18] MEDS: LEVOFLOXACIN 500 MG/D5W RTU 500 MG/100 ML RTUPB IV SCH (23:57)
[2019-08-18] MEDS: ATORVASTATIN CALCIUM 20 MG TABLET PO SCH (23:58)
[2019-08-19] MEDS: METOPROLOL TARTRATE PF/INJ 5 MG/5 ML SDV IV SCH ×4 (00:19→17:18)
[2019-08-19] MEDS ORDERED: DIPHENHYDRAMINE HCL 50 MG/ML VIAL IV ONE (00:25)
[2019-08-19] MEDS: METOPROLOL TARTRATE PF/INJ 5 MG/5 ML SDV IV PRN (03:27)
[2019-08-19] MEDS: LEVOTHYROXINE SODIUM 0.075 MG TABLET PO SCH (05:57)
[2019-08-19] MEDS: LIOTHYRONINE SODIUM 5 MCG TABLET PO SCH (05:57)
[2019-08-19] MEDS: HEPARIN SOD (PORCINE) 5,000 UNIT/ML 1 ML VIAL SUBCUT SCH ×3 (06:22→22:07)
[2019-08-19] MEDS: FUROSEMIDE 20 MG TABLET PO SCH (08:27)
[2019-08-19] MEDS: PANTOPRAZOLE SODIUM 40 MG TABLET.DR PO SCH (08:27)
[2019-08-19] MEDS: BUDESONIDE NEB 0.25 MG/2 ML AMPUL NEB SCH ×2 (08:30→20:35)
--- NOTE | 2019-08-19 09:00 | PDOC PROGRESS REPORT ---
Subjective Progress Note for:: 08/19/19 Subjective:: Patient is comfortable lying down in bed while still on the BiPAP. I was told that patient needs a high flow cannula but is currently being using the hospital so she needs to be maintained on BiPAP. She indicated that she is doing fine although still unable to verbalize anything much. Reason For Visit: ACUTE ON CHRONIC RESPIRATORY FAILURE,ESRD Physical Exam Vital Signs: Temp Pulse Resp BP Pulse Ox 98.6 F 90 24 H 127/73 H 98 08/19/19 08:00 08/19/19 08:30 08/19/19 08:30 08/19/19 08:00 08/19/19 08:30 Intake & Output 08/18/19 08/19/19 08/20/19 06:59 06:59 06:59 Intake Total 100 1100 Output Total 265 1100 Balance -165 0 Weight 73.9 kg 73.6 kg Exam: General appearance: PRESENT: Still on BiPAP but comfortable. Head exam: PRESENT: atraumatic, normocephalic Eye exam: PRESENT: conjunctiva pale, PERRLA. ABSENT: scleral icterus Neck exam: ABSENT: JVD Respiratory exam: PRESENT: Diminished breath sounds. ABSENT: crackles, rales, rhonchi, unlabored, wheezes Cardiovascular exam: PRESENT: Regular rate rhythm -+S1, +S2. ABSENT: diastolic murmur, systolic murmur GI/Abdominal exam: PRESENT: normal bowel sounds, soft. ABSENT: guarding, mass, tenderness Extremities exam: ABSENT: No edema Neurological exam: PRESENT: alert, awake, unable to verbalize too much. Skin exam: PRESENT: dry, warm, Cardiovascular exam: PRESENT: +S1, +S2 GI/Abdominal exam: PRESENT: normal bowel sounds, soft, tenderness - She is tender around the exit site of the recently placed PD catheter. However there is no signs of redness or exit site infection.. ABSENT: distended, guarding, organomegaly, rebound Results Laboratory Results: 08/18/19 06:14 08/18/19 06:14 08/15/19 21:30 Sputum Gram Stain - Final 08/15/19 21:30 Sputum Sputum Culture - Final C.albicans/C.dubliniensis Normal Saima Absent 08/08/19 08/08/19 08/15/19 12:15 18:45 06:34 Troponin I 0.040 NT-Pro-B Natriuret Pep 16209 H 49567 H Impressions: Chest/Abdomen CTA 08/15/19 16:14 IMPRESSION: 1. Study degraded by motion artifact. No definite evidence for pulmonary emboli. 2. Cardiomegaly. Coronary artery calcifications. 3. Emphysema. Small bilateral pleural effusions. Bilateral airspace opacities, may be secondary to multifocal pneumonia; follow-up CT after treatment recommended to ensure complete resolution and exclude underlying neoplasm. 4. Mild mediastinal and right hilar adenopathy. 5. Small abdominal ascites. Mildly dilated common bile duct status post cholecystectomy. Chest X-Ray 08/16/19 00:00 IMPRESSION: The tip and side hole of the enteric tube project within the gastric lumen. Assessment & Plan - Diagnosis (1) Acute hypoxemic respiratory failure Is this a current diagnosis for this admission?: Yes Plan: Patient is currently on BiPAP. Patient's negative for acute pulmonary embolism. Contributory factors include possible bilateral pneumonia, COPD with some interstitial edema. Management per treatment specialist. (2) HCAP (healthcare-associated pneumonia) Is this a current diagnosis for this admission?: Yes Plan: Patient was on cefepime. Currently being initiated on Levaquin and vancomycin. Will defer to treatment specialist. (3) Chronic obstructive pulmonary disease with acute exacerbation Is this a current diagnosis for this admission?: Yes Plan: Currently on IV methylprednisolone. (4) End stage renal failure on dialysis Is this a current diagnosis for this admission?: Yes Plan: Next dialysis will be tomorrow. Continue PD catheter exit site care daily. (5) Pulmonary hypertension Is this a current diagnosis for this admission?: Yes (6) Anemia in chronic kidney disease Is this a current diagnosis for this admission?: Yes Plan: Patient will be given Retacrit during dialysis treatment. (7) Atrial fibrillation Qualifiers: Atrial fibrillation type: longstanding persistent Qualified Code(s): I48.11 - Longstanding persistent atrial fibrillation Is this a current diagnosis for this admission?: Yes (8) HTN (hypertension) Qualifiers: Hypertension type: renovascular hypertension Qualified Code(s): I15.0 - Renovascular hypertension Is this a current diagnosis for this admission?: Yes Plan: Controlled. - Time Time with patient: 15-25 minutes
[2019-08-19] MEDS: ASPIRIN 81 MG TABLET, ENT COATED PO SCH (10:40)
[2019-08-19] MEDS: CHOLECALCIFEROL (D3) 1,000 UNIT (25 MCG) TABLET PO SCH (10:41)
[2019-08-19] MEDS: MEGESTROL ACETATE 20 MG TABLET PO SCH (10:41)
[2019-08-19] MEDS: VITAMIN B COMPLEX TABLET PO SCH (10:41)
[2019-08-19] MEDS: DEXMEDETOMIDINE IN 0.9 % NACL 400 MCG/100 ML RTUPB IV PRN ×2 (10:42→22:01)
[2019-08-19] MEDS: GENTAMICIN SULFATE 0.1% CREAM 15 GM TP SCH (10:42)
--- NOTE | 2019-08-19 14:47 | PDOC CRITICAL CARE PROG REPORT ---
General Date:: 08/19/19 ICU Day:: 4 Hospital Day:: 12 Resuscitation Status: Full Code Events in the past 12 to 24 Hours:: Did not get a lick of sleep last night. Precedex was withheld. Very tired. No visible respiratory distress or increased work of breathing but poorly interactive today. The patient is resting comfortably on CPAP 5, FiO2 55%. SPO2 95-97%. Review of systems relevant to events:: Respiratory, renal Reason for ICU Addmission:: acute on chronic respiratory failure, ESRD - Medications: Medications reviewed and adjusted accordingly: Yes Physical Exam Vital Signs: Temp Pulse Resp BP Pulse Ox 100.8 F H 70 15 94/61 L 97 08/19/19 12:00 08/19/19 14:00 08/19/19 14:00 08/19/19 14:00 08/19/19 14:00 Intake & Output 08/18/19 08/19/19 08/20/19 06:59 06:59 06:59 Intake Total 100 1100 Output Total 265 1100 30 Balance -165 0 -30 Weight 73.9 kg 73.6 kg Weight/Height Weight 73.6 kg Height 1.57 m General appearance: PRESENT: no acute distress, well-developed, well-nourished, other - On CPAP/BiPAP Head exam: PRESENT: atraumatic, normocephalic Mouth exam: PRESENT: moist, tongue midline Respiratory exam: PRESENT: crackles, symmetrical, other - Good air entry bilaterally. ABSENT: rales, rhonchi, wheezes Cardiovascular exam: PRESENT: irregular rhythm. ABSENT: diastolic murmur, rubs, systolic murmur Pulses: PRESENT: normal dorsalis pedis pul GI/Abdominal exam: PRESENT: normal bowel sounds, soft. ABSENT: distended, guarding, mass, rebound, tenderness Extremities exam: PRESENT: full ROM, pedal edema. ABSENT: calf tenderness, clubbing Musculoskeletal exam: PRESENT: normal inspection Neurological exam: PRESENT: awake, CN II-XII grossly intact, motor sensory deficit Psychiatric exam: PRESENT: flat affect Skin exam: PRESENT: dry, intact, warm. ABSENT: cyanosis, rash Laboratory/Radiographs Laboratory Results: 08/18/19 06:14 08/18/19 06:14 08/08/19 08/08/19 08/15/19 12:15 18:45 06:34 Troponin I 0.040 NT-Pro-B Natriuret Pep 88185 H 46554 H Impressions: Chest/Abdomen CTA 08/15/19 16:14 IMPRESSION: 1. Study degraded by motion artifact. No definite evidence for pulmonary emboli. 2. Cardiomegaly. Coronary artery calcifications. 3. Emphysema. Small bilateral pleural effusions. Bilateral airspace opacities, may be secondary to multifocal pneumonia; follow-up CT after treatment recommended to ensure complete resolution and exclude underlying neoplasm. 4. Mild mediastinal and right hilar adenopathy. 5. Small abdominal ascites. Mildly dilated common bile duct status post cholecystectomy. Chest X-Ray 08/16/19 00:00 IMPRESSION: The tip and side hole of the enteric tube project within the gastric lumen. All labs, radiographs, diagnostic studies and EKGs were personally reviewed: Yes In addition, reports of radiographic and diagnostic studies were read: Yes Assessment and Plan - Diagnosis (1) Acute hypoxemic respiratory failure Is this a current diagnosis for this admission?: Yes Plan: Wean CPAP as tolerated. We will try high flow nasal cannula when a high flow cannula becomes available. CPAP during sleep. Precedex. ABG/chest x-ray in a.m. (2) Acute decompensated heart failure Is this a current diagnosis for this admission?: Yes Plan: LVEF 50-55% on 2D echo 08/15/2019. (3) Atrial fibrillation Qualifiers: Atrial fibrillation type: longstanding persistent Qualified Code(s): I48.11 - Longstanding persistent atrial fibrillation Is this a current diagnosis for this admission?: Yes (4) End stage renal failure on dialysis Is this a current diagnosis for this admission?: Yes Plan: Hemodialysis per nephrology. (5) COPD (chronic obstructive pulmonary disease) Qualifiers: COPD type: emphysema Emphysema type: unspecified Qualified Code(s): J43.9 - Emphysema, unspecified Is this a current diagnosis for this admission?: Yes (6) Coronary artery disease Qualifiers: Coronary Disease-Associated Artery/Lesion type: [place] artery [place] vs. transplanted heart: [place] heart Associated angina: without angina Qualified Code(s): I25.10 - Atherosclerotic heart disease of [place] coronary artery without angina pectoris Is this a current diagnosis for this admission?: Yes Critical Time Critical Time (minutes): 60 Level of Care: ICU -: 1. The care of a critical patient is a dynamic process. This note is a liability claims representative synopsis but static in nature. The timeframe for treatments given in order is not necessarily the actual time these treatments may have been done. 2. This patient requires critical care secondary to ongoing requirements for therapy not offered or safe outside the critical care environment. Transfer to a lower level of care will result in altered life or limb morbidity and mor tality. 3. Multidisciplinary rounds completed. 4. ABCDE bundle addressed.
[2019-08-19] MEDS: METHYLPREDNISOLONE INJ 40 MG/1 ML SDV IV SCH (17:17)
[2019-08-19] MEDS: ATORVASTATIN CALCIUM 20 MG TABLET PO SCH (21:23)
[2019-08-19] MEDS: TRAZODONE HCL 50 MG TABLET PO SCH (21:23)
[2019-08-20] MEDS: METOPROLOL TARTRATE PF/INJ 5 MG/5 ML SDV IV SCH ×2 (00:35→06:27)
[2019-08-20] MEDS ORDERED: NORMAL SALINE 1000 ML 1,000 ML IV PRN (05:00)
[2019-08-20] MEDS ORDERED: EPOETIN ALFA-EPBX 20,000 UNIT in SYRINGE, DISPOSABLE, 1 EACH IV PRN (05:00)
[2019-08-20 05:37] LABS: ARTERIAL BLOOD BASE EXCESS 3.1 mmol/L; ARTERIAL BLOOD H2CO3 1.11 mmol/L (1.05-1.35); ARTERIAL BLOOD HCO3 26.7 mmol/L (20-24); ARTERIAL BLOOD O2 SATURATION 97.7 % (94-98); ARTERIAL BLOOD PCO2 36.8 mmHg (35-45); ARTERIAL BLOOD PH 7.48 (7.35-7.45); ARTERIAL BLOOD PO2 94.8 mmHg (80-100); ARTERIAL BLOOD TOTAL CO2 27.9 mmol/L (21-25)
[2019-08-20 05:41] LABS: ARTERIAL BLOOD FIO2 50%
[2019-08-20 05:44] LABS: HEMATOCRIT 24.2 % (36.0-47.0); HEMOGLOBIN 8.1 g/dL (12.0-15.5); MEAN CORPUSCULAR HEMOGLOBIN 30.8 pg (27.0-33.4); MEAN CORPUSCULAR HGB CONC 33.5 g/dL (32.0-36.0); MEAN CORPUSCULAR VOLUME 92 fl (80-97); PLATELET COUNT 192 10^3/uL (150-450); RED BLOOD COUNT 2.64 10^6/uL (3.72-5.28); RED CELL DISTRIBUTION WIDTH 14.9 % (11.5-14.0); WHITE BLOOD COUNT 8.5 10^3/uL (4.0-10.5)
[2019-08-20 06:04] LABS: ANION GAP 12 (5-19); BLOOD UREA NITROGEN 99 mg/dL (7-20); CALCIUM 8.1 mg/dL (8.4-10.2); CARBON DIOXIDE 27 mmol/L (22-30); CHLORIDE 102 mmol/L (98-107); GLUCOSE 145 mg/dL (75-110); PHOSPHORUS 6.4 mg/dL (2.5-4.5); VANCOMYCIN,TROUGH 21.3 ug/mL (5.0-20.0)
[2019-08-20 06:19] LABS: ABSOLUTE MONOCYTES # (MANUAL) 0.3 10^3/uL (0.1-1.4); BASOPHILS % (MANUAL) 0 % (0-2); EOSINOPHILS % (MANUAL) 0 % (0-6); LYMPHOCYTES % (MANUAL) 0 % (13-45); MONOCYTES % (MANUAL) 4 % (3-13); NUCLEATED RED BLOOD CELLS 1 /100 WBC (0); SEGMENTED NEUTROPHILS % (MAN) 96 % (42-78); TOTAL CELLS COUNTED 100
[2019-08-20 06:22] LABS: ANISOCYTOSIS SLIGHT; OVALOCYTES SLIGHT; PLATELET COMMENT ADEQUATE; POLYCHROMASIA 1+; TEAR DROP CELLS SLIGHT
[2019-08-20] MEDS: LIOTHYRONINE SODIUM 5 MCG TABLET PO SCH (06:27)
[2019-08-20] MEDS: LEVOTHYROXINE SODIUM 0.075 MG TABLET PO SCH (06:28)
[2019-08-20] MEDS: HEPARIN SOD (PORCINE) 5,000 UNIT/ML 1 ML VIAL SUBCUT SCH ×3 (06:34→22:37)
--- NOTE | 2019-08-20 08:06 | RADIOLOGY REPORT (SQ) ---
EXAM DESCRIPTION: XR CHEST 1 VIEW COMPLETED DATE/TME: 08/20/2019 00:00 CLINICAL HISTORY: 79 years, Female, acute hypoxemic respiratory failure COMPARISON: 08/16/2019 NUMBER OF VIEWS: One TECHNIQUE: AP view of the chest LIMITATIONS: None. FINDINGS: There are grossly stable diffuse coarse interstitial opacities, worse along the periphery of the lungs. Small bilateral pleural effusions are present. The heart size is stable with an overlying loop recorder. There is no pneumothorax. The bones are unremarkable. The endotracheal and nasogastric tubes have been removed. IMPRESSION: Removal of the endotracheal and nasogastric tubes. Otherwise, no significant change compared to the prior exam. copyright 2010 [employer]- All Rights Reserved
[2019-08-20] MEDS: BUDESONIDE NEB 0.25 MG/2 ML AMPUL NEB SCH ×2 (08:18→19:41)
[2019-08-20] MEDS ORDERED: DEXTROSE 50%-WATER 25 GM/50 ML DISP.SYRIN IV PRN ×2 (14:33)
[2019-08-20] MEDS ORDERED: DEXTROSE 40% GEL 15 GM TUBE PO PRN ×2 (14:33)
[2019-08-20] MEDS ORDERED: GLUCAGON,HUMAN RECOMB 1 MG INJ SUBCUT PRN (14:33)
[2019-08-20] MEDS ORDERED: DEXTROSE 5%-WATER 250 ML with PHENYLEPHRINE HCL 40 MG IV PRN ×2 (16:54)
[2019-08-20] MEDS: METHYLPREDNISOLONE INJ 40 MG/1 ML SDV IV SCH (17:11)
[2019-08-20] MEDS: VITAMIN B COMPLEX TABLET PO SCH (17:14)
[2019-08-20] MEDS: MEGESTROL ACETATE 20 MG TABLET PO SCH (17:14)
[2019-08-20] MEDS: GENTAMICIN SULFATE 0.1% CREAM 15 GM TP SCH (17:14)
[2019-08-20] MEDS: CHOLECALCIFEROL (D3) 1,000 UNIT (25 MCG) TABLET PO SCH (17:14)
[2019-08-20] MEDS: PANTOPRAZOLE SODIUM 40 MG TABLET.DR PO SCH (17:15)
[2019-08-20] MEDS: FUROSEMIDE 20 MG TABLET PO SCH (17:15)
[2019-08-20] MEDS: ASPIRIN 81 MG TABLET, ENT COATED PO SCH (17:15)
--- NOTE | 2019-08-20 17:16 | Progress Note ---
Provider Note Provider Note: The patient is resting comfortably on nasal cannula after hemodialysis. Sent however, physical exam is concerning for expressive a aphasia. The patient clearly comprehends and follows commands. Her neurological exam is otherwise, nonlateralizing. No Babinski. Patient is noted to have mild systolic hypotension, albeit with MAP 65. She does have a history of stroke/TIA. Will obtain CT head without contrast. We will also try low-dose phenylephrine.
[2019-08-20] MEDS ORDERED: PHENYLEPHRINE HCL INJ/PF 10 MG/1 ML SDV ONE (17:20)
[2019-08-20] MEDS ORDERED: VANCOMYCIN HCL 500 MG in DEXTROSE 5%-WATER 100 ML IV SCH (18:00)
--- NOTE | 2019-08-20 19:00 | RADIOLOGY REPORT (SQ) ---
EXAM DESCRIPTION: CT HEAD WITHOUT COMPLETED DATE/TIME: 08/20/2019 6:23 pm REASON FOR STUDY: aphasia COMPARISON: 06/09/2019 TECHNIQUE: Axial images acquired through the brain without intravenous contrast. Images reviewed wi th bone, brain and subdural windows. Additional sagittal and coronal reconstructions were generated. Images stored on PACS. All CT scanners at this facility use dose modulation, iterative reconstruction, and/or weight based d osing when appropriate to reduce radiation dose to as low as reasonably achievable (ALARA). [facility]: Dose Right [facility]: CareDose [facility]: Dose Right [facility]: Teradose 4D [facility]: [employer] RADIATION DOSE: CT Rad equipment meets quality standard of care and radiation dose reduction techniq ues were employed. CTDIvol: 53.2 mGy. DLP: 991 mGy-cm. mGy. LIMITATIONS: None. FINDINGS: VENTRICLES: Normal size and contour. CEREBRUM: No masses. No hemorrhage. No midline shift. No evidence for acute infarction. Areas of l ow density in the white matter most likely chronic small vessel ischemic changes. CEREBELLUM: No masses. No hemorrhage. No alteration of density. No evidence for acute infarction. EXTRAAXIAL SPACES: No fluid collections. No masses. ORBITS AND GLOBE: No intra- or extraconal masses. Normal contour of globe without masses. CALVARIUM: No fracture. PARANASAL SINUSES: No fluid or mucosal thickening. SOFT TISSUES: No mass or hematoma. OTHER: No other significant finding. IMPRESSION: CHRONIC MICROVASCULAR ISCHEMIA. NO ACUTE IMAGING FINDINGS IN THE BRAIN. EVIDENCE OF ACUTE STROKE: NO. COMMENT: Quality ID # [id number]: Final reports with documentation of one or more dose reduction techniques (e.g., Automated exposure control, adjustment of the mA and/or kV according to patient size, use of iterative reconstruction technique) TECHNICAL DOCUMENTATION: JOB ID: [id number] 2010 [employer]- All Rights Reserved Reading location - IP/workstation name: [email or web address]
--- NOTE | 2019-08-20 21:59 | PDOC PROGRESS REPORT ---
Subjective Progress Note for:: 08/20/19 Subjective:: I am seeing the patient this afternoon during initiation of dialysis treatment. She is awake and just on nasal cannula. She seems to be comfortable breathing [place]. However the patient was not able to verbalize a single word. She seems to comprehend what I am saying or asking her but unable to verbalize anything at all today. She was able to follow simple commands such as squeezing my hands and nodding. This seems to be a change since few days ago when she can at least verbalize something even though she was on BiPAP. Her blood pressure is relatively on the low side today. Patient is being closely monitored noted the ultrafiltration can be adjusted. Based on her intake and output she does not seem to have much intake for the last 48 hours since the last dialysis treatment so we do not really need much ultrafiltration today. I was also told regarding the son's concern regarding patient requiring daily dialysis so I went ahead and talk to the son along with his and patient's brother. Discussed with them at that at this time I do not think the patient really need daily dialysis treatment as she does not have much fluid on her and her electrolytes are quite acceptable. Secondly we do not have the capacity to do daily dialysis in the hospital unless she needs an emergent dialysis treatments on other days other than Mondays, Wednesdays and Fridays. She just had her peritoneal dialysis catheter inserted on August 06 and catheter has not been used. At this time our nursing staff is not trained to handle acute start using peritoneal dialysis. Thus we will not be able to do that while she is here in the hospital. I answered her questions with regards to her renal issues. They seems to be satisfied and understood. Reason For Visit: ACUTE ON CHRONIC RESPIRATORY FAILURE,ESRD Physical Exam Vital Signs: Temp Pulse Resp BP Pulse Ox 98.6 F 83 17 94/52 L 96 08/20/19 12:00 08/20/19 12:00 08/20/19 12:00 08/20/19 12:08/20/19 12:00 Intake & Output 08/19/19 08/20/19 08/21/19 06:59 06:59 06:59 Intake Total 1100 181 Output Total 1100 245 60 Balance 0 -64 -60 Weight 73.6 kg 74.2 kg Vitals during dialysis when I was seeing the patient at the start of the treatment: Blood pressure 94/52, respiration of 19, oxygen saturation of 96%, blood flow rate of 450 mL/min and dialysate flow rate of 800 mL/min. Exam: General appearance: PRESENT: no acute distress, cooperative, well-developed, well-nourished Head exam: PRESENT: atraumatic, normocephalic Eye exam: PRESENT: conjunctiva slightly pale, PERRLA. ABSENT: scleral icterus Neck exam: ABSENT: JVD Respiratory exam: PRESENT: Diminished breath sounds. ABSENT: crackles, rales, rhonchi, unlabored, wheezes Cardiovascular exam: PRESENT: Regular rate rhythm -+S1, +S2. ABSENT: diastolic murmur, systolic murmur GI/Abdominal exam: PRESENT: normal bowel sounds, soft. ABSENT: guarding, mass, tenderness Extremities exam: ABSENT: No edema Neurological exam: PRESENT: alert, awake, able to comprehend but unable to verbalize anything consistent with expressive aphasia. Patient able to follow commands. Grossly bilateral arm strengths are equal. Skin exam: PRESENT: dry, warm, Cardiovascular exam: PRESENT: +S1, +S2 GI/Abdominal exam: PRESENT: normal bowel sounds, soft, tenderness - She is tender around the exit site of the recently placed PD catheter. However there i s no signs of redness or exit site infection.. ABSENT: distended, guarding, organomegaly, rebound Results Laboratory Results: 08/20/19 05:19 08/20/19 05:19 08/20/19 08/20/19 08/20/19 05:15 05:19 05:19 WBC 8.5 RBC 2.64 L Hgb 8.1 L Hct 24.2 L MCV 92 MCH 30.8 MCHC 33.5 RDW 14.9 H Plt Count 192 Seg Neutrophils % Not Reportable Carbonic Acid 1.11 HCO3/H2CO3 Ratio 24:1 ABG pH 7.48 H ABG pCO2 36.8 ABG pO2 94.8 ABG HCO3 26.7 H ABG O2 Saturation 97.7 ABG Base Excess 3.1 FiO2 50% Sodium 141.2 Potassium 5.0 Chloride 102 Carbon Dioxide 27 Anion Gap 12 BUN 99 H Creatinine 5.39 H Est GFR ( Amer) 9 L Glucose 145 H Calcium 8.1 L Phosphorus 6.4 H Magnesium 2.4 H Albumin 3.0 L 08/08/19 08/08/19 08/15/19 12:15 18:45 06:34 Troponin I 0.040 NT-Pro-B Natriuret Pep 92176 H 85854 H Impressions: Chest/Abdomen CTA 08/15/19 16:14 IMPRESSION: 1. Study degraded by motion artifact. No definite evidence for pulmonary emboli. 2. Cardiomegaly. Coronary artery calcifications. 3. Emphysema. Small bilateral pleural effusions. Bilateral airspace opacities, may be secondary to multifocal pneumonia; follow-up CT after treatment recommended to ensure complete resolution and exclude underlying neoplasm. 4. Mild mediastinal and right hilar adenopathy. 5. Small abdominal ascites. Mildly dilated common bile duct status post ch olecystectomy. Chest X-Ray 08/20/19 00:00 IMPRESSION: Removal of the endotracheal and nasogastric tubes. Otherwise, no significant change compared to the prior exam. copyright 2011 [employer]- All Rights Reserved Assessment & Plan - Diagnosis (1) Acute hypoxemic respiratory failure Is this a current diagnosis for this admission?: Yes Plan: Patient is currently off the BiPAP and on nasal cannula. Patient's negative for acute pulmonary embolism. Contributory factors include possible bilateral pneumonia, COPD with some stable interstitial edema. Management per social worker masters. (2) HCAP (healthcare-associated pneumonia) Is this a current diagnosis for this admission?: Yes Plan: Patient was on cefepime. Currently being initiated on Levaquin and vancomycin. Will defer to social worker masters. (3) Chronic obstructive pulmonary disease with acute exacerbation Is this a current diagnosis for this admission?: Yes Plan: Currently on IV methylprednisolone. (4) End stage renal failure on dialysis Is this a current diagnosis for this admission?: Yes Plan: We will do dialysis today for 3 hours, using the patient's AV fistula, with 2 potassium bath, blood flow rate of 450 mL per minute, dialysate flow rate of 800 mL per minute, ultrafiltration 0.5 to 1 L only as tolerated, no heparin and Procrit with 20,000 units during dialysis intravenously. Patient's vitals will be closely monitored while on dialysis treatment. We will reduce ultrafiltration rate if the patient's blood pressure goes down. If the patient continues to be intolerant to intermittent hemodialysis and ultrafiltration becomes persistent problem then that would be the time that patient may need to be switch acute peritoneal dialysis. Since we do not have t he capacity to do acute peritoneal dialysis in the hospital, that would mean the patient needs to be transferred to another facility [facility]. At this time since the patient is not clinically fluid overloaded and her electrolytes are controlled, there is no indication for transfer yet . (5) Anemia in chronic kidney disease Is this a current diagnosis for this admission?: Yes Plan: Patient will be given Retacrit during dialysis treatment. (6) Hypotension Qualifiers: Hypotension type: unspecified hypotension type Qualified Code(s): I95.9 - Hypotension, unspecified Is this a current diagnosis for this admission?: Yes Plan: Historically the patient always had difficulty tolerating intermittent hemodialysis with intradialytic hypotension even as an outpatient. We will do a very careful hemodialysis avoid his hypotensive episodes. (7) Subclavian steal syndrome Is this a current diagnosis for this admission?: Yes (8) Pulmonary hypertension Is this a current diagnosis for this admission?: Yes (9) Expressive aphasia Is this a current diagnosis for this admission?: Yes Plan: This seems to be a new finding today. Discussed this with Dr. Ortega who will order a CT scan of the head. (10) Atrial fibrillation Qualifiers: Atrial fibrillation type: longstanding persistent Qualified Code(s): I48.11 - Longstanding persistent atrial fibrillation Is this a current diagnosis for this admission?: Yes - Notes Notes: Discussed the case with Dr. Lee, the social worker masters. Also updated the patient's family members including her son and his and the patient's brother. - Time Time with patient: Greater than 35 minutes
[2019-08-20] MEDS: TRAZODONE HCL 50 MG TABLET PO SCH (22:36)
[2019-08-20] MEDS: ATORVASTATIN CALCIUM 20 MG TABLET PO SCH (22:36)
[2019-08-20] MEDS: LEVOFLOXACIN 500 MG/D5W RTU 500 MG/100 ML RTUPB IV SCH (22:38)
[2019-08-20] MEDS: METOPROLOL TARTRATE PF/INJ 5 MG/5 ML SDV IV PRN (22:42)
[2019-08-20] MEDS ORDERED: DILTIAZEM HCL/D5W 125 MG/125 ML RTUINJ IV ONE (23:10)
[2019-08-20] MEDS ORDERED: DILTIAZEM HCL INJ 25 MG/5 ML VIAL ONE (23:10)
[2019-08-20] MEDS ORDERED: DILTIAZEM HCL INJ 25 MG/5 ML VIAL IV ONE (23:14)
[2019-08-20] MEDS: DILTIAZEM HCL/D5W 125 MG/125 ML RTUINJ IV PRN (23:54)
[2019-08-21] MEDS ORDERED: HYDRALAZINE HCL INJ/PF 20 MG/1 ML SDV ONE (00:53)
[2019-08-21] MEDS ORDERED: HYDRALAZINE HCL INJ/PF 20 MG/1 ML SDV IV ONE (01:38)
[2019-08-21] MEDS ORDERED: HYDRALAZINE HCL INJ/PF 20 MG/1 ML SDV IV PRN (01:39)
[2019-08-21 05:08] LABS: ALBUMIN 2.9 g/dL (3.5-5.0); ANION GAP 13 (5-19); CALCIUM 8.2 mg/dL (8.4-10.2); CARBON DIOXIDE 27 mmol/L (22-30); CHLORIDE 100 mmol/L (98-107); GLUCOSE 126 mg/dL (75-110); PHOSPHORUS 4.7 mg/dL (2.5-4.5)
[2019-08-21 05:16] LABS: BLOOD UREA NITROGEN 66 mg/dL (7-20); POTASSIUM 3.9 mmol/L (3.6-5.0)
[2019-08-21] MEDS: HEPARIN SOD (PORCINE) 5,000 UNIT/ML 1 ML VIAL SUBCUT SCH (05:18)
[2019-08-21] MEDS: LIOTHYRONINE SODIUM 5 MCG TABLET PO SCH (05:19)
[2019-08-21] MEDS: LEVOTHYROXINE SODIUM 0.075 MG TABLET PO SCH (05:19)
[2019-08-21 06:42] LABS: HEMATOCRIT 26.1 % (36.0-47.0); HEMOGLOBIN 8.7 g/dL (12.0-15.5); MEAN CORPUSCULAR HEMOGLOBIN 30.6 pg (27.0-33.4); MEAN CORPUSCULAR HGB CONC 33.3 g/dL (32.0-36.0); MEAN CORPUSCULAR VOLUME 92 fl (80-97); PLATELET COUNT 182 10^3/uL (150-450); RED BLOOD COUNT 2.84 10^6/uL (3.72-5.28); RED CELL DISTRIBUTION WIDTH 15.4 % (11.5-14.0); WHITE BLOOD COUNT 13.3 10^3/uL (4.0-10.5)
[2019-08-21 07:20] LABS: ABSOLUTE LYMPHOCYTES# (MANUAL) 0.4 10^3/uL (0.5-4.7); ABSOLUTE MONOCYTES # (MANUAL) 0.1 10^3/uL (0.1-1.4); BAND NEUTROPHILS % (MANUAL) 1 % (3-5); BASOPHILS % (MANUAL) 0 % (0-2); EOSINOPHILS % (MANUAL) 0 % (0-6); LYMPHOCYTES % (MANUAL) 3 % (13-45); MONOCYTES % (MANUAL) 1 % (3-13); NUCLEATED RED BLOOD CELLS 1 /100 WBC (0); SEGMENTED NEUTROPHILS % (MAN) 95 % (42-78); TOTAL CELLS COUNTED 100
[2019-08-21 07:22] LABS: ANISOCYTOSIS SLIGHT; OVALOCYTES SLIGHT; PLATELET COMMENT ADEQUATE
[2019-08-21] MEDS: BUDESONIDE NEB 0.25 MG/2 ML AMPUL NEB SCH ×2 (08:25→19:22)
[2019-08-21] MEDS: PANTOPRAZOLE SODIUM 40 MG TABLET.DR PO SCH (08:49)
[2019-08-21] MEDS: FUROSEMIDE 20 MG TABLET PO SCH (08:49)
[2019-08-21] MEDS: HYDRALAZINE HCL INJ/PF 20 MG/1 ML SDV IV PRN ×3 (08:49→19:09)
[2019-08-21] MEDS: MEGESTROL ACETATE 20 MG TABLET PO SCH (10:53)
[2019-08-21] MEDS: ASPIRIN 81 MG TABLET, ENT COATED PO SCH (10:53)
[2019-08-21] MEDS: VITAMIN B COMPLEX TABLET PO SCH (10:54)
[2019-08-21] MEDS: CHOLECALCIFEROL (D3) 1,000 UNIT (25 MCG) TABLET PO SCH (10:54)
[2019-08-21] MEDS: METOPROLOL TARTRATE PF/INJ 5 MG/5 ML SDV IV SCH (10:56)
--- NOTE | 2019-08-21 11:24 | PDOC CRITICAL CARE PROG REPORT ---
General Date:: 08/21/18 Hospital Day:: 13 Resuscitation Status: Full Code Events in the past 12 to 24 Hours:: 79-year-old white female with COPD and end-stage renal disease who was admitted with respiratory distress related to the COPD. Her respiratory status is improved but she has developed a new expressive aphasia with some left-sided weakness. He has a history of intermittent A. fib and recurrent strokes but was not on full anticoagulation on admission. Currently, this was discontinued when she started dialysis several years ago. Patient recently had a PD catheter placed due to difficulty with hemodialysis such as hypotension she is still dialyzed through a left upper arm fistula. She has no bleeding problems at this point and no contraindication for full anticoagulation has been on subcu heparin prophylactically already. CT of the head was negative for any evidence of intracranial bleeding. Spoken to the family at length they agree with proceedi ng anticoagulation. She also cannot swallow thus an NG feeding tube will be placed. Finally she has poor IV access and needs a central line if she is not a candidate for PICC. There is also been discussed with nephrology today. Reason for ICU Addmission:: acute on chronic respiratory failure, ESRD Physical Exam Vital Signs: Temp Pulse Resp BP Pulse Ox 98.6 F 92 26 H 160/49 H 96 08/21/19 10:00 08/21/19 10:00 08/21/19 10:00 08/21/19 10:00 08/21/19 10:00 Intake & Output 08/20/19 08/21/19 08/22/19 06:59 06:59 06:59 Intake Total 181 921 Output Total 245 155 30 Balance -64 766 -30 Weight 74.2 kg 73.9 kg Weight/Height Weight 73.9 kg Height 5 ft 2 in General appearance: PRESENT: no acute distress Eye exam: ABSENT: conjunctival injection Ear exam: PRESENT: bleeding Mouth exam: PRESENT: neck supple Neck exam: ABSENT: carotid bruit, JVD, lymphadenopathy, tracheal deviation Respiratory exam: PRESENT: rhonchi Cardiovascular exam: PRESENT: irregular rhythm GI/Abdominal exam: PRESENT: soft. ABSENT: tenderness Extremities exam: ABSENT: pedal edema Neurological exam: PRESENT: aphasic Skin exam: PRESENT: dry, warm Laboratory/Radiographs Laboratory Results: 08/21/19 06:11 08/21/19 04:35 02/15/20 02/15/20 04:35 06:11 WBC 13.3 H RBC 2.84 L Hgb 8.7 L Hct 26.1 L MCV 92 MCH 30.6 MCHC 33.3 RDW 15.4 H Plt Count 182 Seg Neutrophils % Not Reportable Sodium 140.2 Potassium 3.9 D Chloride 100 Carbon Dioxide 27 Anion Gap 13 BUN 66 H D Creatinine 3.50 H Est GFR ( Amer) 15 L Glucose 126 H Calcium 8.2 L Phosphorus 4.7 H Magnesium 2.0 Albumin 2.9 L 08/08/19 08/08/19 08/15/19 12:15 18:45 06:34 Troponin I 0.040 NT-Pro-B Natriuret Pep 82779 H 02293 H Impressions: Chest/Abdomen CTA 08/15/19 16:14 IMPRESSION: 1. Study degraded by motion artifact. No definite evidence for pulmonary emboli. 2. Cardiomegaly. Coronary artery calcifications. 3. Emphysema. Small bilateral pleural effusions. Bilateral airspace opacities, may be secondary to multifocal pneumonia; follow-up CT after treatment recommended to ensure complete resolution and exclude underlying neoplasm. 4. Mild mediastinal and right hilar adenopathy. 5. Small abdominal ascites. Mildly dilated common bile duct status post cholecystectomy. Chest X-Ray 08/20/19 00:00 IMPRESSION: Removal of the endotracheal and nasogastric tubes. Otherwise, no significant change compared to the prior exam. copyright 2011 [employer]- All Rights Reserved Head CT 08/20/19 00:00 IMPRESSION: CHRONIC MICROVASCULAR ISCHEMIA. NO ACUTE IMAGING FINDINGS IN THE BRAIN. EVIDENCE OF ACUTE STROKE: NO. Assessment and Plan - Diagnosis (1) Aphasia Is this a current diagnosis for this admission?: No Plan: Unfortunately Ms. Parham is almost certainly had a new CVA. Her family confirms that she has a history of ischemic strokes as well as the documented history of intermittent atrial fibrillation. She also has dysphasia at this point almost certainly due to the stroke. Finally she has some left-sided weakness in her hand. Her respiratory status has stabilized but given the dysphasia she remains at risk for further complications from a respiratory standpoint Dobbhoff feeding tube Will need a swallowing eval next week Full anticoagulation, heparin for now after placement of a central line She does need a central line at this point Critical Time Critical Time (minutes): 45 Level of Care: ICU -: 1. The care of a critical patient is a dynamic process. This note is a b2b outside sales representative synopsis but static in nature. The timeframe for treatments given in order is not necessarily the actual time these treatments may have been done. 2. This patient requires critical care secondary to ongoing requirements for therapy not offered or safe outside the critical care environment. Transfer to a lower level of care will result in altered life or limb morbidity and mortality. 3. Multidisciplinary rounds completed. 4. ABCDE bundle addressed.
[2019-08-21] MEDS: GENTAMICIN SULFATE 0.1% CREAM 15 GM TP SCH (11:26)
[2019-08-21] MEDS: (PENDING PHARMACY ID) (Sucroferric Oxyhydroxide [Velphoro] 500 MG) PO SCH (11:34)
[2019-08-21] MEDS: ACETYLCYSTEINE INJ 6000 MG/30 ML IV SCH (11:39)
--- NOTE | 2019-08-21 12:19 | Operative Report ---
Bedside Procedure - History of Present Illness History of Present Illness: Poor IV access Indication for Procedure: poor access Date: 08/21/19 Provider: NEMO FERNANDEZ - Central Line Right Internal jugular Time completed: 11:55 Consent obtained: Yes Central line pre-insertion: Sterile PPE donned, Chloraprep applied, Sterile drapes applied Central line lumen type: Triple Anesthetic type: 1% Lidocaine Ultrasound guided: Yes Line secured with sutures: Yes Central line post-insertion: Blood return from lumens, Biopatch applied, Position confirmed w/ CXR Complications: No
[2019-08-21 12:23] LABS: INTERNATIONAL RATION (INR) 1.28; PARTIAL THROMBOPLASTIN TIME 21.1 SEC (23.5-35.8); PROTHROMBIN TIME 16.1 SEC (11.4-15.4)
[2019-08-21] MEDS: DILTIAZEM HCL/D5W 125 MG/125 ML RTUINJ IV PRN (12:23)
--- NOTE | 2019-08-21 13:06 | RADIOLOGY REPORT (SQ) ---
EXAM DESCRIPTION: CHEST SINGLE VIEW COMPLETED DATE/TIME: 08/21/2019 12:48 pm REASON FOR STUDY: Central Line Placement COMPARISON: 08/20/2019 FINDINGS: Single-view chest AP portable supine for central line placement. Right IJ line, tip appropriate to the cavoatrial junction. Slight rotation of the chest. Otherwise stable appearance. No pneumothorax. TECHNICAL DOCUMENTATION: JOB ID: [id number] Reading location - IP/workstation name: [email or web address]
--- NOTE | 2019-08-21 14:55 | RADIOLOGY REPORT (SQ) ---
EXAM DESCRIPTION: KUB/ABDOMEN (SINGLE VIEW) COMPLETED DATE/TIME: 08/21/2019 2:42 pm REASON FOR STUDY: N/G Tube Placement COMPARISON: None. NUMBER OF VIEWS: One view. TECHNIQUE: Supine radiographic image of the abdomen acquired. LIMITATIONS: Motion artifact. FINDINGS: BOWEL GAS PATTERN: Normal bowel gas pattern. No dilated loops. CALCIFICATIONS: No suspicious calcifications. SOFT TISSUES: No gross mass or suggestion of organomegaly. HARDWARE: Feeding tube, tip at the level of the gastric antrum/ pylorus. BONES: No acute fracture. No worrisome bone lesions. OTHER: No other significant finding. IMPRESSION: FEEDING TUBE DESCRIBED. TECHNICAL DOCUMENTATION: JOB ID: [id number] 2010 [employer]- All Rights Reserved Reading location - IP/workstation name: [email or web address]
[2019-08-21] MEDS ORDERED: HEPARIN SOD (PORCINE) 1,000 UNIT/ML 10 ML VIAL IV ONE (15:18)
[2019-08-21] MEDS: HEPARIN SODIUM,PORCINE/D5W 25,000 UNIT/250 ML RTUINJ IV PRN (16:58)
[2019-08-21] MEDS: METHYLPREDNISOLONE INJ 40 MG/1 ML SDV IV SCH (17:00)
[2019-08-21 17:51] LABS: INTERNATIONAL RATION (INR) 1.33; PROTHROMBIN TIME 16.6 SEC (11.4-15.4)
[2019-08-21] MEDS ORDERED: HEPARIN SOD (PORCINE) 1,000 UNIT/ML 10 ML VIAL IV PRN (18:19)
[2019-08-21] MEDS: TRAZODONE HCL 50 MG TABLET PO SCH (21:09)
[2019-08-21] MEDS: ATORVASTATIN CALCIUM 20 MG TABLET PO SCH (21:09)
[2019-08-22] MEDS: DILTIAZEM HCL/D5W 125 MG/125 ML RTUINJ IV PRN (01:48)
[2019-08-22 05:05] LABS: MEAN CORPUSCULAR HGB CONC 33.2 g/dL (32.0-36.0); MEAN CORPUSCULAR VOLUME 93 fl (80-97); PLATELET COUNT 196 10^3/uL (150-450); RED BLOOD COUNT 2.58 10^6/uL (3.72-5.28); RED CELL DISTRIBUTION WIDTH 16.2 % (11.5-14.0); WHITE BLOOD COUNT 12.7 10^3/uL (4.0-10.5)
[2019-08-22 05:26] LABS: ABSOLUTE LYMPHOCYTES# (MANUAL) 0.3 10^3/uL (0.5-4.7); ABSOLUTE MONOCYTES # (MANUAL) 0.3 10^3/uL (0.1-1.4); BAND NEUTROPHILS % (MANUAL) 2 % (3-5); BASOPHILS % (MANUAL) 0 % (0-2); EOSINOPHILS % (MANUAL) 0 % (0-6); LYMPHOCYTES % (MANUAL) 2 % (13-45); MONOCYTES % (MANUAL) 2 % (3-13); SEGMENTED NEUTROPHILS % (MAN) 94 % (42-78); TOTAL CELLS COUNTED 100
[2019-08-22] MEDS: HYDRALAZINE HCL INJ/PF 20 MG/1 ML SDV IV PRN (05:26)
[2019-08-22] MEDS: LIOTHYRONINE SODIUM 5 MCG TABLET PO SCH (05:26)
[2019-08-22] MEDS: LEVOTHYROXINE SODIUM 0.075 MG TABLET PO SCH (05:26)
[2019-08-22 05:27] LABS: ANISOCYTOSIS 1+; BURR CELLS 1+; PLATELET COMMENT ADEQUATE; POIKILOCYTOSIS 1+; POLYCHROMASIA 1+
[2019-08-22] MEDS: BUDESONIDE NEB 0.25 MG/2 ML AMPUL NEB SCH ×2 (08:24→19:34)
[2019-08-22] MEDS: CHOLECALCIFEROL (D3) 1,000 UNIT (25 MCG) TABLET PO SCH (09:37)
[2019-08-22] MEDS: ASPIRIN 81 MG TABLET, ENT COATED PO SCH (09:37)
[2019-08-22] MEDS: MEGESTROL ACETATE 20 MG TABLET PO SCH (09:37)
[2019-08-22] MEDS: PANTOPRAZOLE SODIUM 40 MG TABLET.DR PO SCH (09:37)
[2019-08-22] MEDS: VITAMIN B COMPLEX TABLET PO SCH (09:37)
[2019-08-22] MEDS: GENTAMICIN SULFATE 0.1% CREAM 15 GM TP SCH (09:38)
[2019-08-22] MEDS ORDERED: RINGERS SOLUTION,LACTATED 1,000 ML IV PRN (10:03)
[2019-08-22] MEDS ORDERED: DIGOXIN INJ 0.5 MG/2 ML AMPULE IV ONE (11:30)
[2019-08-22] MEDS: FUROSEMIDE 20 MG TABLET PO SCH (12:27)
--- NOTE | 2019-08-22 13:29 | PDOC CRITICAL CARE PROG REPORT ---
General Date:: 08/22/19 Resuscitation Status: Full Code Events in the past 12 to 24 Hours:: 79 yo white female with end-stage renal disease on chronic dialysis therapy who came in with COPD exacerbation but then she developed new neurologic symptoms and almost certainly had a stroke with some a aphasia. She is now fully anticoagulated and seems to be improving. She has a history of A. fib. Blood pressure has been borderline limiting options for treating the intermittent A. fib. CVP is only 4 after a liter bolus, she is certainly dry contributing to the low blood pressure. She was able to pass a bedside swallow study and is taking clears now. Remains on BiPAP at night but overall her respiratory status is improved today. Reason for ICU Addmission:: acute on chronic respiratory failure, ESRD Physical Exam Vital Signs: Temp Pulse Resp BP Pulse Ox 98.5 F 86 19 74/49 L 98 08/22/19 12:00 08/22/19 12:00 08/22/19 12:00 08/22/19 12:00 08/22/19 12:00 Intake & Output 08/21/19 08/22/19 08/23/19 06:59 06:59 06:59 Intake Total 754 564 4193 Output Total 155 145 45 Balance 552 239 1850 Weight 73.9 kg 73.5 kg Weight/Height Weight 73.5 kg Height 5 ft 2 in General appearance: PRESENT: no acute distress Eye exam: PRESENT: PERRLA Mouth exam: PRESENT: dry mucosa Neck exam: ABSENT: JVD, lymphadenopathy Respiratory exam: PRESENT: clear to auscultation ashanti Cardiovascular exam: PRESENT: irregular rhythm Pulses: PRESENT: normal radial pulses GI/Abdominal exam: PRESENT: soft. ABSENT: tenderness Extremities exam: ABSENT: pedal edema Neurological exam: PRESENT: alert Skin exam: ABSENT: rash Laboratory/Radiographs Laboratory Results: 08/22/19 04:45 08/21/19 04:35 08/22/19 04:45 WBC 12.7 H RBC 2.58 L Hgb 8.0 L Hct 24.0 L MCV 93 MCH 31.0 MCHC 33.2 RDW 16.2 H Plt Count 196 Seg Neutrophils % Not Reportable 08/08/19 08/08/19 08/15/19 12:15 18:45 06:34 Troponin I 0.040 NT-Pro-B Natriuret Pep 82328 H 62466 H Impressions: Chest/Abdomen CTA 08/15/19 16:14 IMPRESSION: 1. Study degraded by motion artifact. No definite evidence for pulmonary emboli. 2. Cardiomegaly. Coronary artery calcifications. 3. Emphysema. Small bilateral pleural effusions. Bilateral airspace opacities, may be secondary to multifocal pneumonia; follow-up CT after treatment recommended to ensure complete resolution and exclude underlying neoplasm. 4. Mild mediastinal and right hilar adenopathy. 5. Small abdominal ascites. Mildly dilated common bile duct status post cholecystectomy. Head CT 08/20/19 00:00 IMPRESSION: CHRONIC MICROVASCULAR ISCHEMIA. NO ACUTE IMAGING FINDINGS IN THE BRAIN. EVIDENCE OF ACUTE STROKE: NO. KUB X-Ray 08/21/19 13:18 IMPRESSION: FEEDING TUBE DESCRIBED. Assessment and Plan - Diagnosis (1) Aphasia Is this a current diagnosis for this admission?: No (2) Acute and chronic respiratory failure Qualifiers: Respiratory failure complication: hypoxia Qualified Code(s): J96.21 - Acute and chronic respiratory failure with hypoxia Is this a current diagnosis for this admission?: Yes (3) Atrial fibrillation Qualifiers: Atrial fibrillation type: longstanding persistent Qualified Code(s): I48.11 - Longstanding persistent atrial fibrillation Is this a current diagnosis for this admission?: Yes Plan Summary: Complicated patient with a number of issues End-stage renal disease but on the dry side now Intermittent atrial fibrillation with recurrent neurologic events COPD with respiratory insufficiency requiring BiPAP nightly currently At risk for aspiration but this appears to be improved today Continue full dose heparin pending discussion with renal tomorrow Digoxin to control A. fib and hopefully keep her converted into sinus rhythm IV fluids based on CVP Continue clear liquids only Lab and chest x-ray in the morning Critical Time Critical Time (minutes): 35 Level of Care: ICU -: 1. The care of a critical patient is a dynamic process. This note is a support representative synopsis but static in nature. The timeframe for treatments gi jordan in order is not necessarily the actual time these treatments may have been done. 2. This patient requires critical care secondary to ongoing requirements for therapy not offered or safe outside the critical care environment. Transfer to a lower level of care will result in altered life or limb morbidity and mortality. 3. Multidisciplinary rounds completed. 4. ABCDE bundle addressed.
[2019-08-22 14:06] LABS: ANION GAP 11 (5-19); BLOOD UREA NITROGEN 97 mg/dL (7-20); CALCIUM 8.3 mg/dL (8.4-10.2); CARBON DIOXIDE 26 mmol/L (22-30); CHLORIDE 100 mmol/L (98-107); GLUCOSE 199 mg/dL (75-110); POTASSIUM 3.7 mmol/L (3.6-5.0)
[2019-08-22] MEDS: ACETAMINOPHEN 325 MG TABLET PO PRN (18:24)
[2019-08-22] MEDS: METHYLPREDNISOLONE INJ 40 MG/1 ML SDV IV SCH (18:24)
[2019-08-22] MEDS: TRAZODONE HCL 50 MG TABLET PO SCH (21:15)
[2019-08-22] MEDS: ATORVASTATIN CALCIUM 20 MG TABLET PO SCH (21:15)
[2019-08-23] MEDS: HEPARIN SODIUM,PORCINE/D5W 25,000 UNIT/250 ML RTUINJ IV PRN (01:36)
[2019-08-23 03:10] LABS: HEMATOCRIT 23.6 % (36.0-47.0); MEAN CORPUSCULAR HGB CONC 32.8 g/dL (32.0-36.0); MEAN CORPUSCULAR VOLUME 94 fl (80-97); PLATELET COUNT 180 10^3/uL (150-450); RED CELL DISTRIBUTION WIDTH 16.8 % (11.5-14.0); WHITE BLOOD COUNT 13.8 10^3/uL (4.0-10.5)
[2019-08-23 03:16] LABS: HEMOGLOBIN 7.7 g/dL (12.0-15.5)
[2019-08-23 03:28] LABS: ABSOLUTE LYMPHOCYTES# (MANUAL) 0.1 10^3/uL (0.5-4.7); ABSOLUTE MONOCYTES # (MANUAL) 0.3 10^3/uL (0.1-1.4); ANISOCYTOSIS 1+; BASOPHILS % (MANUAL) 0 % (0-2); EOSINOPHILS % (MANUAL) 0 % (0-6); LYMPHOCYTES % (MANUAL) 1 % (13-45); MONOCYTES % (MANUAL) 2 % (3-13); SEGMENTED NEUTROPHILS % (MAN) 97 % (42-78); TOTAL CELLS COUNTED 100
[2019-08-23 03:29] LABS: PLATELET COMMENT ADEQUATE
[2019-08-23] MEDS ORDERED: EPOETIN ALFA-EPBX 20,000 UNIT in SYRINGE, DISPOSABLE, 1 EACH IV PRN (05:00)
[2019-08-23] MEDS: LEVOTHYROXINE SODIUM 0.075 MG TABLET PO SCH (05:34)
[2019-08-23] MEDS: LIOTHYRONINE SODIUM 5 MCG TABLET PO SCH (05:34)
[2019-08-23 05:38] LABS: ALBUMIN 2.6 g/dL (3.5-5.0); ALKALINE PHOSPHATASE 54 U/L (38-126); ANION GAP 10 (5-19); ASPARTATE AMINO TRANSFERASE 21 U/L (14-36); BILIRUBIN,DIRECT 0.2 mg/dL (0.0-0.4); BILIRUBIN,TOTAL 0.7 mg/dL (0.2-1.3); BLOOD UREA NITROGEN 110 mg/dL (7-20); CARBON DIOXIDE 25 mmol/L (22-30); CHLORIDE 102 mmol/L (98-107); GLUCOSE 203 mg/dL (75-110); POTASSIUM 4.2 mmol/L (3.6-5.0); TOTAL PROTEIN 4.7 g/dL (6.3-8.2)
[2019-08-23] MEDS: BUDESONIDE NEB 0.25 MG/2 ML AMPUL NEB SCH ×2 (08:12→19:17)
[2019-08-23] MEDS: NORMAL SALINE 1000 ML 1,000 ML IV PRN (08:19)
[2019-08-23] MEDS: PANTOPRAZOLE SODIUM 40 MG TABLET.DR PO SCH (08:19)
--- NOTE | 2019-08-23 09:39 | RADIOLOGY REPORT (SQ) ---
EXAM DESCRIPTION: CHEST SINGLE VIEW COMPLETED DATE/TIME: 08/23/2019 9:14 am REASON FOR STUDY: copd COMPARISON: AP view of the chest from 08/21/2019. EXAM PARAMETERS: NUMBER OF VIEWS: One view. TECHNIQUE: An AP view of the chest was obtained. RADIATION DOSE: NA LIMITATIONS: None. FINDINGS: LUNGS AND PLEURA: Diffuse coarse interstitial opacities. The costophrenic sulci remain bl unted. There is no pneumothorax. MEDIASTINUM AND HILAR STRUCTURES: Stable mediastinal and hilar contours. HEART AND VASCULAR STRUCTURES: Stable cardiac silhouette. BONES: No acute findings. HARDWARE: Implantable cardiac monitoring device. The tip of the right IJ central venous catheter pro jects within the SVC. The tip of the enteric tube projects past the gastroesophageal junction and ou tside the field of view of the radiograph. OTHER: No other finding. IMPRESSION: Tubes and lines as above. Otherwise unchanged radiographic appearance of the chest. TECHNICAL DOCUMENTATION: JOB ID: [id number] 2010 [employer]- All Rights Reserved Reading location - IP/workstation name: [email or web address]
[2019-08-23] MEDS ORDERED: DIGOXIN 0.25 MG TABLET PO SCH (10:00)
[2019-08-23] MEDS: ASPIRIN 81 MG TABLET, ENT COATED PO SCH (12:03)
[2019-08-23] MEDS: GENTAMICIN SULFATE 0.1% CREAM 15 GM TP SCH (12:04)
[2019-08-23] MEDS: CHOLECALCIFEROL (D3) 1,000 UNIT (25 MCG) TABLET PO SCH (12:04)
[2019-08-23] MEDS: MEGESTROL ACETATE 20 MG TABLET PO SCH (12:04)
[2019-08-23] MEDS: VITAMIN B COMPLEX TABLET PO SCH (12:04)
--- NOTE | 2019-08-23 14:47 | PDOC PROGRESS REPORT ---
Subjective Progress Note for:: 08/23/19 Reason For Visit: Patient seen today on dialysis. She is undergoing dialysis without any major issues even though blood pressure is rather tenuous. Discussions were done with the patient who is unable to contribute much because she is on a BiPAP. Discussions were done with the treating nurse as well as with test preparation tutor. The patient had a early episode of aphasia suggestive of possible TIA/CVA and the patient was heparinized given the background history of paroxysmal atrial fibrillation by the test preparation tutor. Apparently yesterday the CVP was just 4 mmHg after liter of fluid bolus and the test preparation tutor believes that she is hypovolemic from poor intake. Reviewed her I&O's from the last 2 days. We will try to remove minimal amount of fluid today on dialysis especially since her blood pressure is rather tenuous. Labs and medications were reviewed. Dialysis orders were reviewed with the treating dialysis nurse. Physical Exam Vital Signs: Temp Pulse Resp BP Pulse Ox 97.4 F 101 H 16 200/50 H 100 08/23/19 12:00 08/23/19 12:00 08/23/19 12:00 08/23/19 12:00 08/23/19 12:00 Intake & Output 08/22/19 08/23/19 08/24/19 06:59 06:59 06:59 Intake Total 260 1341 Output Total 145 162 35 Balance 115 1179 -35 Weight 73.5 kg 74.4 kg General appearance: PRESENT: mild distress Respiratory exam: PRESENT: clear to auscultation ashanti, decreased breath sounds, rhonchi - Scattered.. ABSENT: crackles Cardiovascular exam: PRESENT: +S1, +S2 GI/Abdominal exam: PRESENT: normal bowel sounds, soft, tenderness - She is tender around the exit site of the recently placed PD catheter. However there is no signs of redness or exit site infection.. ABSENT: distended, guarding, organomegaly, rebound Extremities exam: PRESENT: pedal edema Neurological exam: PRESENT: altered Skin exam: ABSENT: cyanosis, erythema, mottled Results Laboratory Results: 08/23/19 03:00 08/23/19 03:00 08/23/19 08/23/19 08/23/19 03:00 03:00 03:00 WBC 13.8 H RBC 2.50 L Hgb 7.7 L Hct 23.6 L MCV 94 MCH 31.0 MCHC 32.8 RDW 16.8 H Plt Count 180 Seg Neutrophils % Not Reportable Sodium 137.3 Potassium 4.2 Chloride 102 Carbon Dioxide 25 Anion Gap 10 BUN 110 H Creatinine 5.50 H Est GFR ( Amer) 9 L Glucose 203 H Calcium 8.0 L Total Bilirubin 0.7 AST 21 Alkaline Phosphatase 54 Total Protein 4.7 L Albumin 2.6 L TSH 1.75 08/08/19 08/08/19 08/15/19 12:15 18:45 06:34 Troponin I 0.040 NT-Pro-B Natriuret Pep 87792 H 92085 H Impressions: Chest/Abdomen CTA 08/15/19 16:14 IMPRESSION: 1. Study degraded by motion artifact. No definite evidence for pulmonary emboli. 2. Cardiomegaly. Coronary artery calcifications. 3. Emphysema. Small bilateral pleural effusions. Bilateral airspace opacities, may be secondary to multifocal pneumonia; follow-up CT after treatment recommended to ensure complete resolution and exclude underlying neoplasm. 4. Mild mediastinal and right hilar adenopathy. 5. Small abdominal ascites. Mildly dilated common bile duct status post cholecystectomy. Head CT 08/20/19 00:00 IMPRESSION: CHRONIC MICROVASCULAR ISCHEMIA. NO ACUTE IMAGING FINDINGS IN THE BRAIN. EVIDENCE OF ACUTE STROKE: NO. KUB X-Ray 08/21/19 13:18 IMPRESSION: FEEDING TUBE DESCRIBED. Chest X-Ray 08/23/19 08:00 IMPRESSION: Tubes and lines as above. Otherwise unchanged radiographic appear ance of the chest. Assessment & Plan - Diagnosis (1) Acute and chronic respiratory failure Qualifiers: Respiratory failure complication: hypoxia Qualified Code(s): J96.21 - Acute and chronic respiratory failure with hypoxia Is this a current diagnosis for this admission?: Yes Plan: Patient had gotten better but now seems to be deteriorating. Currently on BiPAP. (2) Chronic obstructive pulmonary disease with acute exacerbation Is this a current diagnosis for this admission?: Yes Plan: She came in as such but now she seems to be decompensating. Management as per hospitalist. (3) End stage renal failure on dialysis Is this a current diagnosis for this admission?: Yes Plan: Patient currently undergoing dialysis. Vital signs are unstable. Dialysis is being supervised to ensure safe and smooth procedure. Plan to remove between 250 cc - 0 of fluid as tolerated. Discussed with the treating dialysis nurse and Substation Technician and treating LONG WALL SHEAR OPERATOR. (4) Anemia in chronic kidney disease Is this a current diagnosis for this admission?: Yes Plan: Titrate with erythropoietin.Monitor hemoglobin which has dropped today to 7.7 closely. (5) History of GI bleed Plan: Today's hemoglobin is 7.7. Adjust erythropoietin. Monitor hemoglobin closely given her previous history of GI bleed and patient currently on anticoagulation for her paroxysmal atrial fibrillation with possibility of TIA/CVA. Monitor closely for need for blood transfusions. (6) Subclavian steal syndrome Is this a current diagnosis for this admission?: Yes Plan: Monitor for any symptoms and avoid hypotension.Close examination of peripheral pulses showed hardly any pulses in both her upper extremity radials and in the left lower extremity anterior tibial. However she had a good pulse in the right anterior tibial and the Dopplers showed around 150 systolic. However she did not have any evidences of acute thromboembolism in the form of severe cyanosis or discoloration of both upper extremities and the left lower extremity.Recommend using the right lower extremity to measure her blood pressures. (7) History of CVA (cerebrovascular accident) Plan: Apparently has had recurrence during this admission with possible TIA/CVA and CT scan of the brain there showed old micro vascular ischemic changes but nothing new.
--- NOTE | 2019-08-23 16:14 | PDOC CRITICAL CARE PROG REPORT ---
General Date:: 08/23/19 Resuscitation Status: Full Code Events in the past 12 to 24 Hours:: 79 yo white female with end-stage renal disease on chronic dialysis therapy who came in with COPD exacerbation but then she developed new neurologic symptoms and almost certainly had a stroke with some a aphasia. She is now fully anticoagulated and seems to be improving. She has a history of A. fib. Blood pressure has been borderline limiting options for treating the intermittent A. fib. She continues to require BiPAP at night although chest x-ray looks good today. Care discussed with nephrology today and we have agreed that Coumadin is the best option. Reason for ICU Addmission:: acute on chronic respiratory failure, ESRD Physical Exam Vital Signs: Temp Pulse Resp BP Pulse Ox 97.4 F 104 H 24 H 131/57 H 95 08/23/19 12:00 08/23/19 14:00 08/23/19 14:00 08/23/19 14:00 08/23/19 15:32 Intake & Output 08/22/19 08/23/19 08/24/19 06:59 06:59 06:59 Intake Total 260 1341 700 Output Total 145 162 970 Balance 115 1179 -270 Weight 73.5 kg 74.4 kg Weight/Height Weight 74.4 kg Height 5 ft 2 in General appearance: PRESENT: no acute distress Eye exam: ABSENT: scleral icterus Mouth exam: PRESENT: neck supple Neck exam: ABSENT: JVD, lymphadenopathy, thyromegaly Respiratory exam: PRESENT: clear to auscultation ashanti Cardiovascular exam: PRESENT: irregular rhythm GI/Abdominal exam: PRESENT: soft. ABSENT: tenderness Gentrourinary exam: PRESENT: indwelling catheter Extremities exam: ABSENT: pedal edema Neurological exam: PRESENT: aphasic - But this has improved, left-sided weakness persists Skin exam: ABSENT: rash Laboratory/Radiographs Laboratory Results: 08/23/19 03:00 08/23/19 03:00 08/23/19 08/23/19 08/23/19 03:00 03:00 03:00 WBC 13.8 H RBC 2.50 L Hgb 7.7 L Hct 23.6 L MCV 94 MCH 31.0 MCHC 32.8 RDW 16.8 H Plt Count 180 Seg Neutrophils % Not Reportable Sodium 137.3 Potassium 4.2 Chloride 102 Carbon Dioxide 25 Anion Gap 10 BUN 110 H Creatinine 5.50 H Est GFR ( Amer) 9 L Glucose 203 H Calcium 8.0 L Total Bilirubin 0.7 AST 21 Alkaline Phosphatase 54 Total Protein 4.7 L Albumin 2.6 L TSH 1.75 08/08/19 08/08/19 08/15/19 12:15 18:45 06:34 Troponin I 0.040 NT-Pro-B Natriuret Pep 31752 H 08782 H Impressions: Chest/Abdomen CTA 08/15/19 16:14 IMPRESSION: 1. Study degraded by motion artifact. No definite evidence for pulmonary emboli. 2. Cardiomegaly. Coronary artery calcifications. 3. Emphysema. Small bilateral pleural effusions. Bilateral airspace opacities, may be secondary to multifocal pneumonia; follow-up CT after treatment recommended to ensure complete resolution and exclude underlying neoplasm. 4. Mild mediastinal and right hilar adenopathy. 5. Small abdominal ascites. Mildly dilated common bile duct status post cholecystectomy. Head CT 08/20/19 00:00 IMPRESSION: CHRONIC MICROVASCULAR ISCHEMIA. NO ACUTE IMAGING FINDINGS IN THE BRAIN. EVIDENCE OF ACUTE STROKE: NO. KUB X-Ray 08/21/19 13:18 IMPRESSION: FEEDING TUBE DESCRIBED. Chest X-Ray 08/23/19 08:00 IMPRESSION: Tubes and lines as above. Otherwise unchanged radiographic appearance of the chest. Assessment and Plan - Diagnosis (1) Aphasia Is this a current diagnosis for this admission?: No Plan: Unfortunately Ms. Parham has almost certainly had a new CVA. Her family confirms that she has a history of ischemic strokes as well as the documented history of intermittent atrial fibrillation. She has les dysphasia at this point and is being followed by speech pathology, she has some left-sided weakness in her hand. Her respiratory status has stabilized Dobbhoff feeding tube continue Full anticoagulation, heparin for now and start Coumadin (2) Acute and chronic respiratory failure Qualifiers: Respiratory failure complication: hypoxia Qualified Code(s): J96.21 - Acute and chronic respiratory failure with hypoxia Is this a current diagnosis for this admission?: Yes Plan: Continue BiPAP at night for now Continue therapy for COPD (3) Atrial fibrillation Qualifiers: Atrial fibrillation type: longstanding persistent Qualified Code(s): I48.11 - Longstanding persistent atrial fibrillation Is this a current diagnosis for this admission?: Yes Critical Time Critical Time (minutes): 40 Level of Care: ICU -: 1. The care of a critical patient is a dynamic process. This note is a provider relations representative synopsis but static in nature. The timeframe for treatments given in order is not necessarily the actual time these treatments may have been done. 2. This patient requires critical care secondary to ongoing requirements for therapy not offered or safe outside the critical care environment. Transfer to a lower level of care will result in altered life or limb morbidity and mortality. 3. Multidisciplinary rounds completed. 4. ABCDE bundle addressed.
[2019-08-23 16:50] LABS: HEMATOCRIT 24.6 % (36.0-47.0); HEMOGLOBIN 8.1 g/dL (12.0-15.5); MEAN CORPUSCULAR VOLUME 94 fl (80-97); PLATELET COUNT 183 10^3/uL (150-450); RED BLOOD COUNT 2.62 10^6/uL (3.72-5.28); WHITE BLOOD COUNT 19.3 10^3/uL (4.0-10.5)
[2019-08-23 17:03] LABS: AMORPHOUS SEDIMENT,URINE TRACE /HPF; APPEARANCE,URINE CLOUDY; BILIRUBIN,URINE NEGATIVE (NEGATIVE); COLOR,URINE AMBER; GLUCOSE, URINE NEGATIVE (NEGATIVE); KETONES,URINE NEGATIVE (NEGATIVE); LEUKOCYTE ESTERASE,URINE SMALL (NEGATIVE); NITRITE,URINE NEGATIVE (NEGATIVE); PROTEIN,URINE 100 mg/dL (NEGATIVE); URINE SPECIFIC GRAVITY 1.016; UROBILINOGEN,URINE NEGATIVE mg/dL (<2.0)
[2019-08-23] MEDS: ACETAMINOPHEN 325 MG TABLET PO PRN (17:19)
[2019-08-23] MEDS: METHYLPREDNISOLONE INJ 40 MG/1 ML SDV IV SCH (17:20)
[2019-08-23] MEDS ORDERED: VANCOMYCIN HCL 750 MG in DEXTROSE 5%-WATER 250 ML IV SCH (18:00)
[2019-08-23] MEDS: ATORVASTATIN CALCIUM 20 MG TABLET PO SCH (21:07)
[2019-08-23] MEDS: TRAZODONE HCL 50 MG TABLET PO SCH (21:07)
[2019-08-23] MEDS: WARFARIN SODIUM 2.5 MG TABLET PO SCH (21:08)
[2019-08-24 03:24] LABS: HEMOGLOBIN 8.3 g/dL (12.0-15.5); MEAN CORPUSCULAR HEMOGLOBIN 31.4 pg (27.0-33.4); MEAN CORPUSCULAR HGB CONC 33.2 g/dL (32.0-36.0); MEAN CORPUSCULAR VOLUME 95 fl (80-97); PLATELET COUNT 168 10^3/uL (150-450); RED BLOOD COUNT 2.64 10^6/uL (3.72-5.28); RED CELL DISTRIBUTION WIDTH 17.4 % (11.5-14.0)
[2019-08-24 03:38] LABS: INTERNATIONAL RATION (INR) 1.25; PROTHROMBIN TIME 15.8 SEC (11.4-15.4)
[2019-08-24 03:44] LABS: ANION GAP 8 (5-19); BLOOD UREA NITROGEN 59 mg/dL (7-20); CALCIUM 8.1 mg/dL (8.4-10.2); CARBON DIOXIDE 31 mmol/L (22-30); CHLORIDE 99 mmol/L (98-107); GLUCOSE 193 mg/dL (75-110); POTASSIUM 3.9 mmol/L (3.6-5.0)
[2019-08-24 03:47] LABS: ABSOLUTE LYMPHOCYTES# (MANUAL) 0.3 10^3/uL (0.5-4.7); ABSOLUTE MONOCYTES # (MANUAL) 0.3 10^3/uL (0.1-1.4); BASOPHILS % (MANUAL) 0 % (0-2); EOSINOPHILS % (MANUAL) 0 % (0-6); LYMPHOCYTES % (MANUAL) 2 % (13-45); MONOCYTES % (MANUAL) 2 % (3-13); NUCLEATED RED BLOOD CELLS 1 /100 WBC (0); SEGMENTED NEUTROPHILS % (MAN) 96 % (42-78); TOTAL CELLS COUNTED 100
[2019-08-24 03:49] LABS: ANISOCYTOSIS 1+; BURR CELLS SLIGHT; OVALOCYTES SLIGHT; PLATELET COMMENT ADEQUATE; POIKILOCYTOSIS SLIGHT; POLYCHROMASIA SLIGHT; SCHISTOCYTES SLIGHT
[2019-08-24] MEDS: HEPARIN SODIUM,PORCINE/D5W 25,000 UNIT/250 ML RTUINJ IV PRN (03:50)
[2019-08-24] MEDS: NORMAL SALINE 1000 ML 1,000 ML IV PRN (03:50)
[2019-08-24] MEDS: LEVOTHYROXINE SODIUM 0.075 MG TABLET PO SCH (05:31)
[2019-08-24] MEDS: LIOTHYRONINE SODIUM 5 MCG TABLET PO SCH (05:31)
[2019-08-24] MEDS: PANTOPRAZOLE SODIUM 40 MG TABLET.DR PO SCH (08:08)
[2019-08-24 08:11] LABS: HEMATOCRIT 25.8 % (36.0-47.0); HEMOGLOBIN 8.4 g/dL (12.0-15.5); MEAN CORPUSCULAR HGB CONC 32.6 g/dL (32.0-36.0); MEAN CORPUSCULAR VOLUME 95 fl (80-97); PLATELET COUNT 172 10^3/uL (150-450); RED BLOOD COUNT 2.71 10^6/uL (3.72-5.28); RED CELL DISTRIBUTION WIDTH 17.3 % (11.5-14.0); WHITE BLOOD COUNT 15.8 10^3/uL (4.0-10.5)
[2019-08-24] MEDS: BUDESONIDE NEB 0.25 MG/2 ML AMPUL NEB SCH ×2 (08:30→20:46)
[2019-08-24 08:46] LABS: ABSOLUTE LYMPHOCYTES# (MANUAL) 0.5 10^3/uL (0.5-4.7); ABSOLUTE MONOCYTES # (MANUAL) 0.3 10^3/uL (0.1-1.4); BASOPHILS % (MANUAL) 0 % (0-2); EOSINOPHILS % (MANUAL) 2 % (0-6); LYMPHOCYTES % (MANUAL) 3 % (13-45); MONOCYTES % (MANUAL) 2 % (3-13); SEGMENTED NEUTROPHILS % (MAN) 93 % (42-78); TOTAL CELLS COUNTED 100
[2019-08-24 08:47] LABS: ANISOCYTOSIS 1+; POLYCHROMASIA SLIGHT; TOXIC GRANULATION SLIGHT
[2019-08-24 08:48] LABS: OVALOCYTES SLIGHT
[2019-08-24 08:50] LABS: PLATELET COMMENT ADEQUATE; TEAR DROP CELLS SLIGHT
[2019-08-24] MEDS: VITAMIN B COMPLEX TABLET PO SCH (09:16)
[2019-08-24] MEDS: DIGOXIN 0.125 MG TABLET PO SCH (09:17)
[2019-08-24] MEDS: ASPIRIN 81 MG TABLET, ENT COATED PO SCH (09:17)
[2019-08-24] MEDS: CHOLECALCIFEROL (D3) 1,000 UNIT (25 MCG) TABLET PO SCH (09:17)
[2019-08-24] MEDS: MEGESTROL ACETATE 20 MG TABLET PO SCH (09:18)
[2019-08-24] MEDS: GENTAMICIN SULFATE 0.1% CREAM 15 GM TP SCH (09:19)
--- NOTE | 2019-08-24 16:05 | RADIOLOGY REPORT (SQ) ---
EXAM DESCRIPTION: MRI HEAD WITHOUT COMPLETED DATE/TIME: 08/24/2019 3:23 pm REASON FOR STUDY: stroke COMPARISON: MRI brain 06/09/2019, 01/22/2018 CT brain 08/20/2019 TECHNIQUE: Multiplanar imaging includes non-contrasted T1, T2, FLAIR, and diffusion with ADC map seq uences. Images stored on PACS. LIMITATIONS: None. FINDINGS: ANATOMY: No anomalies. Normal vascular flow voids. Pituitary fossa normal. CSF SPACES: Normal in size and contour. No hemorrhage. CEREBRUM: No MR evidence of acute ischemic change, acute intracranial hemorrhage, mass effect, or mid line shift. Extensive hemispheric white matter disease with old infarcts in the left basal ganglia. Old infarcts in the right and left thalamus. POSTERIOR FOSSA: No signal alteration. No hemorrhage. No edema, masses or mass effect. Internal ann marie tory canals, cerebello-pontine angles, mastoids normal. DIFFUSION IMAGING: Negative for acute or sub-acute infarction. ORBITS: No masses. Globes normal. PARANASAL SINUSES: No fluid levels. Mucosa normal. OTHER: No other significant finding. IMPRESSION: Extensive white matter disease with multiple lacunar infarcts in the basal ganglia and r ight and left thalamus. No acute findings EVIDENCE OF ACUTE STROKE: NO. TECHNICAL DOCUMENTATION: JOB ID: [id number] 2010 [employer]- All Rights Reserved Reading location - IP/workstation name: [email or web address]
--- NOTE | 2019-08-24 16:10 | RADIOLOGY REPORT (SQ) ---
EXAM DESCRIPTION: MRA HEAD WITHOUT COMPLETED DATE/TIME: 08/24/2019 3:23 pm REASON FOR STUDY: stroke COMPARISON: CT brain 08/20/2019 MRI brain 08/24/2019 TECHNIQUE: Axial 3-D [id number] acquisition imaging performed through the brain in the area of t he [place]. Images reformatted using 3-D MIPS. LIMITATIONS: None. FINDINGS: SOURCE IMAGES: No unexpected findings on source images. No large masses. 3-D MIP: No aneurysm. No occlusions. No significant stenosis. OTHER: No other significant finding. IMPRESSION: NORMAL MRA OF THE [place]. TECHNICAL DOCUMENTATION: JOB ID: [id number] 2010 [employer]- All Rights Reserved Reading location - IP/workstation name: [email or web address]
--- NOTE | 2019-08-24 16:16 | PDOC PROGRESS REPORT ---
Subjective Progress Note for:: 08/24/19 Subjective:: Patient is a 79 yo woman with ESRD on PD, COPD, UNIQUE, CVA who presented to the ED on 08/08/2019 via EMS for respiratory distress. She was placed on bipap and given breathing treatments. Started on treatment for COPD exacerbation. Later downgraded to the medical floor. On the medical floor, patient continued to require BiPAP continuously and was unable to get weaned off. Patient was also was noted to be volume overloaded with BNP of 60,000. She continued to receive dialysis. She also was started on broad-spectrum antibiotics with concern for multifocal pneumonia receiving vancomycin, Levaquin and Zosyn. Given that patient was still having very high FiO2 requirements and persistent continuous BiPAP requirements, patient was transferred back to the ICU. In the ICU, patient continued to receive dialysis with fluid removal. Patient was also noted to have aphasia and some more left sided weakness and also suspected to have a stroke. She passed swallow evaluation. Patient was continued on BiPAP for a few days and treatment for COPD and was eventually able to be weaned off BiPAP. At this time, patient was sent for an MRI and brain imaging and is stab le to be sent to the floor. Reason For Visit: ACUTE ON CHRONIC RESPIRATORY FAILURE,ESRD Physical Exam Vital Signs: Temp Pulse Resp BP Pulse Ox 97.9 F 93 16 104/74 96 08/24/19 12:00 08/24/19 14:00 08/24/19 14:00 08/24/19 14:00 08/24/19 14:00 Intake & Output 08/23/19 08/24/19 08/25/19 06:59 06:59 06:59 Intake Total 1341 1902 611 Output Total 162 1030 10 Balance 1179 872 601 Weight 74.4 kg 74.2 kg General appearance: PRESENT: no acute distress, cooperative Mouth exam: PRESENT: neck supple Neck exam: ABSENT: JVD Respiratory exam: PRESENT: rhonchi, symmetrical, tachypnea, unlabored. ABSENT: wheezes Cardiovascular exam: PRESENT: RRR, +S1, +S2. ABSENT: tachycardia GI/Abdominal exam: PRESENT: soft. ABSENT: rebound, rigid, tenderness Neurological exam: PRESENT: alert, awake Psychiatric exam: ABSENT: agitated, anxious Focused psych exam: ABSENT: pressured speech Skin exam: ABSENT: jaundice Results Laboratory Results: 08/24/19 08:00 08/24/19 03:11 08/23/19 08/23/19 08/24/19 16:28 16:28 03:11 WBC 19.3 H RBC 2.62 L Hgb 8.1 L Hct 24.6 L MCV 94 MCH 31.0 MCHC 33.0 RDW 17.0 H Plt Count 183 Seg Neutrophils % Sodium 137.8 Potassium 3.9 Chloride 99 Carbon Dioxide 31 H Anion Gap 8 BUN 59 H Creatinine 3.45 H Est GFR ( Amer) 16 L Glucose 193 H Calcium 8.1 L Urine Color JOANA Urine Appearance CLOUDY Urine pH 5.0 Ur Specific [place] 1.016 Urine Protein 100 H Urine Glucose (UA) NEGATIVE Urine Ketones NEGATIVE Urine Blood MODERATE H Urine Nitrite NEGATIVE Ur Leukocyte Esterase SMALL H Urine WBC (Auto) 37 Urine RBC (Auto) >182 08/24/19 08/24/19 03:11 08:00 WBC 14.0 H 15.8 H RBC 2.64 L 2.71 L Hgb 8.3 L 8.4 L Hct 25.0 L 25.8 L MCV 95 95 MCH 31.4 31.0 MCHC 33.2 32.6 RDW 17.4 H 17.3 H Plt Count 168 172 Seg Neutrophils % Not Reportable Not Reportable Sodium Potassium Chloride Carbon Dioxide Anion Gap BUN Creatinine Est GFR ( Amer) Glucose Calcium Urine Color Urine Appearance Urine pH Ur Specific [place] Urine Protein Urine Glucose (UA) Urine Ketones Urine Blood Urine Nitrite Ur Leukocyte Esterase Urine WBC (Auto) Urine RBC (Auto) 08/08/19 08/08/19 08/15/19 12:15 18:45 06:34 Troponin I 0.040 NT-Pro-B Natriuret Pep 73499 H 61015 H Impressions: Chest/Abdomen CTA 08/15/19 16:14 IMPRESSION: 1. Study degraded by motion artifact. No definite evidence for pulmonary emboli. 2. Cardiomegaly. Coronary artery calcifications. 3. Emphysema. Small bilateral pleural effusions. Bilateral airspace opacities, may be secondary to multifocal pneumonia; follow-up CT after treatment recommended to ensure complete resolution and exclude underlying neoplasm. 4. Mild mediastinal and right hilar adenopathy. 5. Small abdominal ascites. Mildly dilated common bile duct status post c holecystectomy. Head CT 08/20/19 00:00 IMPRESSION: CHRONIC MICROVASCULAR ISCHEMIA. NO ACUTE IMAGING FINDINGS IN THE BRAIN. EVIDENCE OF ACUTE STROKE: NO. KUB X-Ray 08/21/19 13:18 IMPRESSION: FEEDING TUBE DESCRIBED. Chest X-Ray 08/23/19 08:00 IMPRESSION: Tubes and lines as above. Otherwise unchanged radiographic appearance of the chest. Brain MRI with MRA 08/24/19 00:00 IMPRESSION: NORMAL MRA OF THE [place]. 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 No acute findings EVIDENCE OF ACUTE STROKE: NO. Assessment and Plan - Diagnosis (1) Acute and chronic respiratory failure Qualifiers: Respiratory failure complication: hypoxia Qualified Code(s): J96.21 - Acute and chronic respiratory failure with hypoxia Is this a current diagnosis for this admission?: Yes Plan: Hypoxic respiratory failure thought to be secondary to COPD exacerbation, volume overload from ESRD and complicated by pneumonia. Patient no longer requiring continuous BiPAP. Continue 4 L nasal cannula and nocturnal BiPAP. We will monitor closely (2) Stroke Qualifiers: CVA mechanism: thrombosis Precerebral and cerebral artery: unspecified cerebral artery Qualified Code(s): I63.30 - Cerebral infarction due to thrombosis of unspecified cerebral artery Is this a current diagnosis for this admission?: Yes Plan: Patient has history of strokes but there was concern for new stroke a few days ago as she developed a aphasia and left-sided weakness per documentation from the ICU. Currently on heparin drip and warfarin with a history of A. fib. Continue aspirin. MRI of the brain however shows no acute infarcts but does show several old infarcts. Passed swallow evaluation Will need extensive physical and Occupational Therapy (3) Persistent atrial fibrillation Is this a current diagnosis for this admission?: Yes Plan: Was started on warfarin with heparin bridge while in the ICU. Continue to monitor INR. We will continue heparin bridge for now given history of strokes and very high chads vasc score. Also on digoxin. (4) COPD exacerbation Is this a current diagnosis for this admission?: Yes Plan: Nebs as needed. Acute exacerbation seems to be over. Wean Solu-Medrol gradually as tolerated. (5) End stage renal failure on dialysis Is this a current diagnosis for this admission?: Yes Plan: Continue dialysis as scheduled by nephrology. (6) Pulmonary hypertension Is this a current diagnosis for this admission?: Yes Plan: RVSP on echo >60mmHg and 2/4 diastolic dysfunction with normal EF. Dialysis as scheduled. (7) Malnutrition Qualifiers: Malnutrition type: protein-calorie malnutrition Protein-calorie malnutrition severity: unspecified severity Qualified Code(s): E46 - Unspecified protein-calorie malnutrition Is this a current diagnosis for this admission?: Yes Plan: Tube feeding still ongoing via [place]. Encouraging p.o. intake in the meantime. - Time Time Spent with patient: 15-24 minutes
--- NOTE | 2019-08-24 16:18 | RADIOLOGY REPORT (SQ) ---
EXAM DESCRIPTION: MRA NECK WITHOUT COMPLETED DATE/TIME: 08/24/2019 3:23 pm REASON FOR STUDY: stroke COMPARISON: 07/23/2018 CTA head and neck TECHNIQUE: Axial 2-D volume acquisition imaging through the extracranial carotid and vertebral arter ies with reformatting using 3-D MIPS. LIMITATIONS: None. FINDINGS: RIGHT CAROTID ARTERY: No stenosis or occlusive changes. Limited visualization of the orig in. LEFT CAROTID ARTERY: No stenosis or occlusive changes. Limited visualization of the origin. VERTEBRAL ARTERY: Not well-visualized. Left vertebral artery is dominant OTHER: No other significant finding. IMPRESSION: NO SIGNIFICANT STENOSIS OF THE CAROTID BIFURCATIONS. VERTEBRAL ARTERY SUBOPTIMALLY VISUALIZED ON TODAY'S MRA EXAM. LEFT VERTEBRAL ARTERY IS DOMINANT. COMMENT: Quality ID #[id number]: Measurements of distal internal carotid diameter were used as the denomin ator for stenosis measurement. TECHNICAL DOCUMENTATION: JOB ID: [id number] 2010 [employer]- All Rights Reserved Reading location - IP/workstation name: [email or web address]
[2019-08-24] MEDS: METHYLPREDNISOLONE INJ 40 MG/1 ML SDV IV SCH (17:29)
[2019-08-24] MEDS: DOCUSATE SODIUM 100 MG CAPSULE PO SCH (17:29)
--- NOTE | 2019-08-24 20:08 | Progress Note ---
Provider Note Provider Note: Patient seen for determination for transfer to the hospitalist service. Discussed case and care with family. Patient to have MRI and MRA of head and neck for acute stroke. She passed her speech and swallow eval is on dysphasia diet. No hemodynamic lability Updated family and patient to be evaluated by the hospitalist service to facilitate transfer.
[2019-08-24] MEDS: TRAZODONE HCL 50 MG TABLET PO SCH (23:01)
[2019-08-24] MEDS: WARFARIN SODIUM 2.5 MG TABLET PO SCH (23:02)
[2019-08-24] MEDS: ATORVASTATIN CALCIUM 20 MG TABLET PO SCH (23:03)
[2019-08-25] MEDS: NORMAL SALINE 1000 ML 1,000 ML IV PRN (02:29)
[2019-08-25] MEDS ORDERED: EPOETIN ALFA-EPBX 2,000 UNIT, EPOETIN ALFA-EPBX 3,000 UNIT, EPOETIN ALFA-EPBX 20,000 UN... IV PRN ×4 (05:00)
[2019-08-25] MEDS: LEVOTHYROXINE SODIUM 0.075 MG TABLET PO SCH (05:47)
[2019-08-25 06:24] LABS: HEMATOCRIT 24.7 % (36.0-47.0); MEAN CORPUSCULAR HEMOGLOBIN 30.9 pg (27.0-33.4); MEAN CORPUSCULAR HGB CONC 32.2 g/dL (32.0-36.0); MEAN CORPUSCULAR VOLUME 96 fl (80-97); PLATELET COUNT 147 10^3/uL (150-450); RED BLOOD COUNT 2.58 10^6/uL (3.72-5.28); RED CELL DISTRIBUTION WIDTH 18.3 % (11.5-14.0); WHITE BLOOD COUNT 14.2 10^3/uL (4.0-10.5)
[2019-08-25 06:36] LABS: ANION GAP 6 (5-19); BLOOD UREA NITROGEN 83 mg/dL (7-20); CALCIUM 7.8 mg/dL (8.4-10.2); CARBON DIOXIDE 29 mmol/L (22-30); CHLORIDE 101 mmol/L (98-107); GLUCOSE 122 mg/dL (75-110); POTASSIUM 4.3 mmol/L (3.6-5.0)
[2019-08-25 06:39] LABS: INTERNATIONAL RATION (INR) 1.12; PROTHROMBIN TIME 14.5 SEC (11.4-15.4)
[2019-08-25 06:51] LABS: BASOPHILS % (MANUAL) 0 % (0-2); EOSINOPHILS % (MANUAL) 0 % (0-6); LYMPHOCYTES % (MANUAL) 0 % (13-45); MONOCYTES % (MANUAL) 0 % (3-13); SEGMENTED NEUTROPHILS % (MAN) 100 % (42-78); TOTAL CELLS COUNTED 100
[2019-08-25 06:52] LABS: ANISOCYTOSIS 2+; HYPERSEGMENTED NEUTROPHILS PRESENT; OVALOCYTES SLIGHT; POIKILOCYTOSIS 1+; POLYCHROMASIA SLIGHT; SCHISTOCYTES SLIGHT; TOXIC GRANULATION SLIGHT
[2019-08-25 06:53] LABS: PLATELET COMMENT DECREASED; PLATELET LARGE PRESENT
[2019-08-25] MEDS: BUDESONIDE NEB 0.25 MG/2 ML AMPUL NEB SCH ×2 (09:04→20:45)
[2019-08-25] MEDS: LIOTHYRONINE SODIUM 5 MCG TABLET PO SCH (09:20)
[2019-08-25] MEDS: DOCUSATE SODIUM 100 MG CAPSULE PO SCH ×2 (09:41→17:14)
--- NOTE | 2019-08-25 10:13 | PDOC PROGRESS REPORT ---
Subjective Progress Note for:: 08/25/19 Reason For Visit: ACUTE ON CHRONIC RESPIRATORY FAILURE,ESRD Physical Exam Vital Signs: Temp Pulse Resp BP Pulse Ox 97.9 F 81 17 104/74 99 08/24/19 12:00 08/25/19 07:00 08/24/19 20:50 08/24/19 14:00 08/25/19 02:34 Intake & Output 08/24/19 08/25/19 08/26/19 06:59 06:59 06:59 Intake Total 1902 1325 119 Output Total 1030 135 Balance 872 1190 119 Weight 74.2 kg 78.2 kg General appearance: PRESENT: no acute distress, morbidly obese, well-developed Head exam: PRESENT: atraumatic, normocephalic Eye exam: PRESENT: conjunctiva pink, EOMI. ABSENT: scleral icterus Ear exam: PRESENT: normal external ear exam Mouth exam: PRESENT: tongue midline Neck exam: ABSENT: carotid bruit, JVD, lymphadenopathy, thyromegaly Respiratory exam: PRESENT: rhonchi, unlabored. ABSENT: rales, tachypnea, wheezes Cardiovascular exam: PRESENT: irregular rhythm, +S1, +S2. ABSENT: diastolic m urmur, rubs, systolic murmur Vascular exam: PRESENT: normal capillary refill GI/Abdominal exam: PRESENT: normal bowel sounds, soft, other - NGT in place. ABSENT: distended, guarding, mass, organolmegaly, rebound, tenderness Rectal exam: PRESENT: deferred Extremities exam: PRESENT: +1 edema. ABSENT: calf tenderness, clubbing, pedal edema Neurological exam: PRESENT: alert, awake, oriented to place, oriented to situation. ABSENT: motor sensory deficit Psychiatric exam: PRESENT: appropriate affect. ABSENT: homicidal ideation, suicidal ideation Skin exam: PRESENT: dry, intact, warm. ABSENT: cyanosis, rash Results Laboratory Results: 08/25/19 05:50 08/25/19 05:50 08/25/19 08/25/19 05:50 05:50 WBC 14.2 H RBC 2.58 L Hgb 8.0 L Hct 24.7 L MCV 96 MCH 30.9 MCHC 32.2 RDW 18.3 H Plt Count 147 L Seg Neutrophils % Not Reportable Sodium 136.2 L Potassium 4.3 Chloride 101 Carbon Dioxide 29 Anion Gap 6 BUN 83 H Creatinine 4.33 H Est GFR ( Amer) 12 L Glucose 122 H Calcium 7.8 L Phosphorus 4.0 Magnesium 2.1 08/08/19 08/08/19 08/15/19 12:15 18:45 06:34 Troponin I 0.040 NT-Pro-B Natriuret Pep 13159 H 99755 H Impressions: Chest/Abdomen CTA 08/15/19 16:14 IMPRESSION: 1. Study degraded by motion artifact. No definite evidence for pulmonary emboli. 2. Cardiomegaly. Coronary artery calcifications. 3. Emphysema. Small bilateral pleural effusions. Bilateral airspace opacities, may be secondary to multifocal pneumonia; follow-up CT after treatment recommended to ensure complete resolution and exclude underlying neoplasm. 4. Mild mediastinal and right hilar adenopathy. 5. Small abdominal ascites. Mildly dilated common bile duct status post cholecystectomy. Head CT 08/20/19 00:00 IMPRESSION: CHRONIC MICROVASCULAR ISCHEMIA. NO ACUTE IMAGING FINDINGS IN THE BRAIN. EVIDENCE OF ACUTE STROKE: NO. KUB X-Ray 08/21/19 13:18 IMPRESSION: FEEDING TUBE DESCRIBED. Chest X-Ray 08/23/19 08:00 IMPRESSION: Tubes and lines as above. Otherwise unchanged radiographic appearance of the chest. Brain MRI with MRA 08/24/19 00:00 IMPRESSION: NORMAL MRA OF THE [place]. 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 No acute findings EVIDENCE OF ACUTE STROKE: NO. Neck MRA 08/24/19 00:00 IMPRESSION: NO SIGNIFICANT STENOSIS OF THE CAROTID BIFURCATIONS. VERTEBRAL ARTERY SUBOPTIMALLY VISUALIZED ON TODAY'S MRA EXAM. LEFT VERTEBRAL ARTERY IS DOMINANT. Assessment and Plan - Diagnosis (1) Acute and chronic respiratory failure Qualifiers: Respiratory failure complication: hypoxia Qualified Code(s): J96.21 - Acute and chronic respiratory failure with hypoxia Is this a current diagnosis for this admission?: Yes (2) Acute hypoxemic respiratory failure Is this a current diagnosis for this admission?: Yes (3) Chronic obstructive pulmonary disease with acute exacerbation Is this a current diagnosis for this admission?: Yes (4) End stage renal failure on dialysis Is this a current diagnosis for this admission?: Yes (5) Malnutrition Qualifiers: Malnutrition type: protein-calorie malnutrition Protein-calorie malnutrition severity: moderate Qualified Code(s): E44.0 - Moderate protein- calorie malnutrition Is this a current diagnosis for this admission?: Yes (6) Persistent atrial fibrillation Is this a current diagnosis for this admission?: Yes - Plan Summary Summary: Acute on chronic respiratory failure thought to be secondary to COPD exacerbation, fluid overload from ESRD and complicated pneumonia. She is currently on 4 L of nasal cannula. Patient is usually on 3 L at home. Possible acute CVA. She does have history of old CVA. She developed aphasia and left-sided weakness a few days ago. She is on heparin drip and warfarin due to history of atrial fibrillation. She is also on aspirin. MRI of the brain shows no acute CVA. Chronic persistent atrial fibrillation currently on Coumadin as well as heparin bridge. Discontinue heparin when appropriate. INR will continue to be monitored. Patient is also on digoxin End-stage renal disease on dialysis continue as per nephrology Pulmonary hypertension with pulmonary pressure more than 60 mm per mercury. She has diastolic dysfunction, chronic with no acute exacerbation Protein calorie malnutrition, moderate. She is still on NG tube feeding as her oral intake is apparently poor. Will DC NG tube once oral intake is improved Morbid obesity - Time Time Spent with patient: 25-34 minutes Medications reviewed and adjusted accordingly: Yes Anticipated discharge: SNF Within: within 72 hours
--- NOTE | 2019-08-25 13:49 | PDOC PROGRESS REPORT ---
Subjective Progress Note for:: 08/25/19 Reason For Visit: Patient seen today on dialysis. She looks quite sickly and rather moribund. She is able to talk and denies any specific complaints other than some respiratory issues with her breathing for which she is currently on a Ventimask. Denies any history of chest pains palpitations. Undergoing dialysis without any issues. Blood pressure on the right lower extremity shows it is around 200 systolic. Right upper arm showed it was 105 systolic. Labs and medications were reviewed. Dialysis orders were reviewed with the treating dialysis nurse. Physical Exam Vital Signs: Temp Pulse Resp BP Pulse Ox 97.9 F 85 14 104/74 96 08/24/19 12:00 08/25/19 09:04 08/25/19 11:05 08/24/19 14:00 08/25/19 09:04 Intake & Output 08/24/19 08/25/19 08/26/19 06:59 06:59 06:59 Intake Total 1902 1325 119 Output Total 1030 135 Balance 872 1190 119 Weight 74.2 kg 78.2 kg General appearance: PRESENT: disheveled Respiratory exam: PRESENT: clear to auscultation [place], rhonchi - Few scattered.. ABSENT: crackles Cardiovascular exam: PRESENT: +S1, +S2 GI/Abdominal exam: PRESENT: normal bowel sounds, soft, tenderness - She is tender around the exit site of the recently placed PD catheter. However there is no signs of redness or exit site infection.. ABSENT: distended, guarding, organomegaly, rebound Extremities exam: PRESENT: +1 edema Neurological exam: PRESENT: altered, awake, oriented to person Psychiatric exam: PRESENT: depressed Skin exam: ABSENT: cyanosis, mottled, rash Results Laboratory Results: 08/25/19 05:50 08/25/19 05:50 08/25/19 08/25/19 05:50 05:50 WBC 14.2 H RBC 2.58 L Hgb 8.0 L Hct 24.7 L MCV 96 MCH 30.9 MCHC 32.2 RDW 18.3 H Plt Count 147 L Seg Neutrophils % Not Reportable Sodium 136.2 L Potassium 4.3 Chloride 101 Carbon Dioxide 29 Anion Gap 6 BUN 83 H Creatinine 4.33 H Est GFR ( Amer) 12 L Glucose 122 H Calcium 7.8 L Phosphorus 4.0 Magnesium 2.1 08/08/19 08/08/19 08/15/19 12:15 18:45 06:34 Troponin I 0.040 NT-Pro-B Natriuret Pep 44102 H 53591 H Impressions: Chest/Abdomen CTA 08/15/19 16:14 IMPRESSION: 1. Study degraded by motion artifact. No definite evidence for pulmonary emboli. 2. Cardiomegaly. Coronary artery calcifications. 3. Emphysema. Small bilateral pleural effusions. Bilateral airspace opacities, may be secondary to multifocal pneumonia; follow-up CT after treatment recommended to ensure complete resolution and exclude underlying neoplasm. 4. Mild mediastinal and right hilar adenopathy. 5. Small abdominal ascites. Mildly dilated common bile duct status post cholecystectomy. Head CT 08/20/19 00:00 IMPRESSION: CHRONIC MICROVASCULAR ISCHEMIA. NO ACUTE IMAGING FINDINGS IN THE BRAIN. EVIDENCE OF ACUTE STROKE: NO. KUB X-Ray 08/21/19 13:18 IMPRESSION: FEEDING TUBE DESCRIBED. Chest X-Ray 08/23/19 08:00 IMPRESSION: Tubes and lines as above. Otherwise unchanged radiographic appearance of the chest. Brain MRI with MRA 08/24/19 00:00 IMPRESSION: NORMAL MRA OF THE [place]. 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 No acute findings EVIDENCE OF ACUTE STROKE: NO. Neck MRA 08/24/19 00:00 IMPRESSION: NO SIGNIFICANT STENOSIS OF THE CAROTID BIFURCATIONS. VERTEBRAL ARTERY SUBOPTIMALLY VISUALIZED ON TODAY'S MRA EXAM. LEFT VERTEBRAL ARTERY IS DOMINANT. Assessment & Plan - Diagnosis (1) Acute and chronic respiratory failure Qualifiers: Respiratory failure complication: hypoxia Qualified Code(s): J96.21 - Acute and chronic respiratory failure with hypoxia Is this a current diagnosis for this admission?: Yes Plan: Patient had gotten better but now seems to be deteriorating. Currently on ventimask. (2) Chronic obstructive pulmonary disease with acute exacerbation Is this a current diagnosis for this admission?: Yes Plan: She came in as such but now she seems to be decompensating. Management as per hospitalist. (3) End stage renal failure on dialysis Is this a current diagnosis for this admission?: Yes Plan: Patient currently undergoing dialysis. Vital signs are stable. Recommend checking her blood pressure on her right lower extremity. Dialysis is being supervised to ensure safe and smooth procedure. Plan to remove between 1-2 lof fluid as tolerated. Discussed with the treating dialysis nurse. (4) Anemia in chronic kidney disease Is this a current diagnosis for this admission?: Yes Plan: Titrate with erythropoietin.Monitor hemoglobin which is 8 today. (5) History of GI bleed Plan: Today's hemoglobin is 8.0/7.7. Adjust erythropoietin. Monitor hemoglobin closely given her previous history of GI bleed and patient currently on anticoagulation for her paroxysmal atrial fibrillation with possibility of TIA/CVA. Monitor closely for need for blood transfusions. (6) Subclavian steal syndrome Is this a current diagnosis for this admission?: Yes Plan: Monitor for any symptoms and avoid hypotension.Close examination of peripheral pulses showed hardly any pulses in both her upper extremity radials and in the left lower extremity anterior tibial. However she had a good pulse in the right anterior tibial and the Dopplers showed around 200 systolic. However she did not have any evidences of acute thromboembolism in the form of severe cyanosis or discoloration of both upper extremities and the left lower extremity.Recommend using the right lower extremity to measure her blood pressures. (7) History of CVA (cerebrovascular accident) Plan: Apparently has had recurrence during this admission with possible TIA/CVA and CT scan of the brain there showed old micro vascular ischemic changes/ Lacunar infarcts but nothing new.
[2019-08-25] MEDS: HEPARIN SODIUM,PORCINE/D5W 25,000 UNIT/250 ML RTUINJ IV PRN (14:00)
[2019-08-25] MEDS: DIGOXIN 0.125 MG TABLET PO SCH (15:15)
[2019-08-25] MEDS: MEGESTROL ACETATE 20 MG TABLET PO SCH (17:10)
[2019-08-25] MEDS: ASPIRIN 81 MG TABLET, ENT COATED PO SCH (17:10)
[2019-08-25] MEDS: VITAMIN B COMPLEX TABLET PO SCH (17:11)
[2019-08-25] MEDS: CHOLECALCIFEROL (D3) 1,000 UNIT (25 MCG) TABLET PO SCH (17:11)
[2019-08-25] MEDS: METHYLPREDNISOLONE INJ 40 MG/1 ML SDV IV SCH (17:17)
[2019-08-25] MEDS: GENTAMICIN SULFATE 0.1% CREAM 15 GM TP SCH (17:19)
[2019-08-25] MEDS: TRAZODONE HCL 50 MG TABLET PO SCH (21:26)
[2019-08-25] MEDS: ATORVASTATIN CALCIUM 20 MG TABLET PO SCH (21:26)
[2019-08-25] MEDS: WARFARIN SODIUM 3 MG TABLET PO SCH (21:27)
[2019-08-26] MEDS ORDERED: DOPAMINE HCL/DEXTROSE 5%-WATER 800 MG/250 ML RTUINJ IV PRN (01:59)
[2019-08-26] MEDS: NORMAL SALINE 1000 ML 1,000 ML IV PRN (02:35)
[2019-08-26] MEDS: LIOTHYRONINE SODIUM 5 MCG TABLET PO SCH (06:05)
[2019-08-26] MEDS: LEVOTHYROXINE SODIUM 0.075 MG TABLET PO SCH (06:26)
[2019-08-26 06:46] LABS: APPEARANCE,URINE CLOUDY; BILIRUBIN,URINE NEGATIVE (NEGATIVE); COLOR,URINE AMBER; GLUCOSE, URINE NEGATIVE (NEGATIVE); KETONES,URINE NEGATIVE (NEGATIVE); LEUKOCYTE ESTERASE,URINE TRACE (NEGATIVE); NITRITE,URINE NEGATIVE (NEGATIVE); PROTEIN,URINE 100 mg/dL (NEGATIVE); URINE SPECIFIC GRAVITY 1.017; UROBILINOGEN,URINE NEGATIVE mg/dL (<2.0)
[2019-08-26] MEDS: BUDESONIDE NEB 0.25 MG/2 ML AMPUL NEB SCH ×2 (08:23→20:48)
[2019-08-26] MEDS: ALBUMIN HUMAN 12.5 GM/50 ML RTUINJ IV SCH ×4 (08:34→13:39)
[2019-08-26 08:40] LABS: INTERNATIONAL RATION (INR) 1.27; PARTIAL THROMBOPLASTIN TIME 87.6 SEC (23.5-35.8)
[2019-08-26] MEDS: ASPIRIN 81 MG TABLET, ENT COATED PO SCH (10:24)
[2019-08-26] MEDS: CHOLECALCIFEROL (D3) 1,000 UNIT (25 MCG) TABLET PO SCH (10:25)
[2019-08-26] MEDS: DIGOXIN 0.125 MG TABLET PO SCH (10:25)
[2019-08-26] MEDS: DOCUSATE SODIUM 100 MG CAPSULE PO SCH ×2 (10:25→17:31)
[2019-08-26] MEDS: VITAMIN B COMPLEX TABLET PO SCH (10:25)
[2019-08-26] MEDS: GENTAMICIN SULFATE 0.1% CREAM 15 GM TP SCH (10:26)
[2019-08-26] MEDS: MEGESTROL ACETATE 20 MG TABLET PO SCH (10:27)
--- NOTE | 2019-08-26 15:48 | PDOC PROGRESS REPORT ---
Subjective Progress Note for:: 08/26/19 Subjective:: Patient seen earlier today. There was a discussion with the family about her CODE STATUS. Patient had indicated that she wanted to change her CODE STATUS however discussion with the patient and her family revealed that patient does want to continue with a full code. She was awake alert and oriented. She made it pretty clear that she wants everything to be done to save her if needed and she would like to continue with dialysis although her preference is peritoneal dialysis. Reason For Visit: ACUTE ON CHRONIC RESPIRATORY FAILURE,ESRD Physical Exam Vital Signs: Temp Pulse Resp BP Pulse Ox 98.2 F 110 H 20 112/67 97 08/26/19 00:01 08/26/19 15:00 08/26/19 08:23 08/26/19 15:00 08/26/19 08:23 Intake & Output 08/25/19 08/26/19 08/27/19 06:59 06:59 06:59 Intake Total 1325 1674 496 Output Total 135 1610 Balance 1190 64 496 Weight 78.2 kg 77.6 kg General appearance: PRESENT: no acute distress, well-developed, other - NG tube in place Head exam: PRESENT: atraumatic, normocephalic Eye exam: PRESENT: PERRLA. ABSENT: scleral icterus Ear exam: PRESENT: normal external ear exam Mouth exam: PRESENT: tongue midline Neck exam: ABSENT: carotid bruit, JVD, lymphadenopathy, thyromegaly Respiratory exam: PRESENT: rhonchi, unlabored. ABSENT: rales, wheezes Cardiovascular exam: PRESENT: irregular rhythm, +S1, +S2. ABSENT: diastolic murmur, rubs, systolic murmur Pulses: PRESENT: normal dorsalis pedis pul Vascular exam: PRESENT: normal capillary refill GI/Abdominal exam: PRESENT: normal bowel sounds, soft. ABSENT: distended, guarding, mass, organolmegaly, rebound, tenderness Rectal exam: PRESENT: deferred Extremities exam: PRESENT: full ROM. ABSENT: calf tenderness, clubbing, pedal edema Neurological exam: PRESENT: alert, awake, oriented to person, oriented to place, oriented to situation. ABSENT: motor sensory deficit Psychiatric exam: PRESENT: appropriate affect. ABSENT: homicidal ideation, suicidal ideation Skin exam: PRESENT: dry, intact, warm. ABSENT: cyanosis, rash Results Laboratory Results: 08/25/19 05:50 08/25/19 05:50 08/26/19 03:45 Urine Color JOANA Urine Appearance CLOUDY Urine pH 5.0 Ur Specific [place] 1.017 Urine Protein 100 H Urine Glucose (UA) NEGATIVE Urine Ketones NEGATIVE Urine Blood MODERATE H Urine Nitrite NEGATIVE Ur Leukocyte Esterase TRACE H Urine WBC (Auto) 38 Urine RBC (Auto) 71 08/08/19 08/08/19 08/15/19 12:15 18:45 06:34 Troponin I 0.040 NT-Pro-B Natriuret Pep 03069 H 85420 H Impressions: Chest/Abdomen CTA 08/15/19 16:14 IMPRESSION: 1. Study degraded by motion artifact. No definite evidence for pulmonary emboli. 2. Cardiomegaly. Coronary artery calcifications. 3. Emphysema. Small bilateral pleural effusions. Bilateral airspace opacities, may be secondary to multifocal pneumonia; follow-up CT after treatment recommended to ensure complete resolution and exclude underlying neoplasm. 4. Mild mediastinal and right hilar adenopathy. 5. Small abdominal ascites. Mildly dilated common bile duct status post c holecystectomy. Head CT 08/20/19 00:00 IMPRESSION: CHRONIC MICROVASCULAR ISCHEMIA. NO ACUTE IMAGING FINDINGS IN THE BRAIN. EVIDENCE OF ACUTE STROKE: NO. KUB X-Ray 08/21/19 13:18 IMPRESSION: FEEDING TUBE DESCRIBED. Chest X-Ray 08/23/19 08:00 IMPRESSION: Tubes and lines as above. Otherwise unchanged radiographic appearance of the chest. Brain MRI with MRA 08/24/19 00:00 IMPRESSION: NORMAL MRA OF THE [place]. 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 No acute findings EVIDENCE OF ACUTE STROKE: NO. Neck MRA 08/24/19 00:00 IMPRESSION: NO SIGNIFICANT STENOSIS OF THE CAROTID BIFURCATIONS. VERTEBRAL ARTERY SUBOPTIMALLY VISUALIZED ON TODAY'S MRA EXAM. LEFT VERTEBRAL ARTERY IS DOMINANT. Assessment and Plan - Diagnosis (1) Acute and chronic respiratory failure Qualifiers: Respiratory failure complication: hypoxia Qualified Code(s): J96.21 - Acute and chronic respiratory failure with hypoxia Is this a current diagnosis for this admission?: Yes Plan: Hypoxic respiratory failure thought to be secondary to COPD exacerbation, volume overload from ESRD and complicated by pneumonia. Patient no longer requiring continuous BiPAP. Continue 4 L nasal cannula and nocturnal BiPAP. Taper oxygen as tolerated We will monitor closely (2) Acute hypoxemic respiratory failure Is this a current diagnosis for this admission?: Yes Plan: Wean CPAP as tolerated. (3) Chronic obstructive pulmonary disease with acute exacerbation Is this a current diagnosis for this admission?: Yes Plan: Continue bronchodilators (4) End stage renal failure on dialysis Is this a current diagnosis for this admission?: Yes Plan: Continue dialysis as scheduled by nephrology. She is currently on hemodialysis although her preference is for peritoneal dialysis (5) Malnutrition Qualifiers: Malnutrition type: protein-calorie malnutrition Protein-calorie malnutrition severity: moderate Qualified Code(s): E44.0 - Moderate protein- calorie malnutrition Is this a current diagnosis for this admission?: Yes Plan: Tube feeding still ongoing via [place]. Encouraging p.o. intake in the mean time. May discontinue NG tube feeding if patient is able to have enough caloric intake orally (6) Persistent atrial fibrillation Is this a current diagnosis for this admission?: Yes Plan: Was started on warfarin with heparin bridge while in the ICU. Continue to monitor INR. We will continue heparin bridge for now given history of strokes and very high chads vasc score. Also on digoxin. - Plan Summary Summary: \ Pulmonary hypertension with pulmonary pressure more than 60 mm per mercury. She has diastolic dysfunction, chronic with no acute exacerbation Protein calorie malnutrition, moderate. She is still on NG tube feeding as her oral intake is apparently poor. Will DC NG tube once oral intake is improved Morbid obesity - Time Time Spent with patient: 25-34 minutes Medications reviewed and adjusted accordingly: Yes Anticipated discharge: SNF Within: within 72 hours
--- NOTE | 2019-08-26 15:51 | ADVANCED CARE ---
- Diagnosis (1) Acute and chronic respiratory failure Diagnosis Current: Yes (2) Acute hypoxemic respiratory failure Diagnosis Current: Yes (3) Chronic obstructive pulmonary disease with acute exacerbation Diagnosis Current: Yes (4) End stage renal failure on dialysis Diagnosis Current: Yes (5) Malnutrition Diagnosis Current: Yes (6) Persistent atrial fibrillation Diagnosis Current: Yes Attendance: , son, [id number]- Edin Forde and Laurel Parham Medical staff including myself, Amy RN and Flavio RN Resuscitation Status: Full Code Discussion: Extensive discussion regarding CODE however after discussing with her. Patient had previously indicated that she would like to change her CODE STATUS however after discussing with her patient has decided to remain a full code. She appears to understand and grasp the discussion at this time. She indicates that she would like to be on peritoneal dialysis and was explained to her that due to her acute illness this is currently on hold. She does have a PD catheter in place which is not being used yet. She indicates otherwise that she wants for cardiac and respiratory resuscitation to be carried out if needed She names her as POMaureen Time Spent: 32 minutes
[2019-08-26 16:12] LABS: HEMATOCRIT 22.2 % (36.0-47.0); MEAN CORPUSCULAR HEMOGLOBIN 31.6 pg (27.0-33.4); MEAN CORPUSCULAR HGB CONC 32.7 g/dL (32.0-36.0); MEAN CORPUSCULAR VOLUME 97 fl (80-97); PLATELET COUNT 135 10^3/uL (150-450); RED BLOOD COUNT 2.29 10^6/uL (3.72-5.28); RED CELL DISTRIBUTION WIDTH 19.2 % (11.5-14.0); WHITE BLOOD COUNT 12.5 10^3/uL (4.0-10.5)
[2019-08-26 16:16] LABS: HEMOGLOBIN 7.3 g/dL (12.0-15.5)
[2019-08-26 16:49] LABS: ABSOLUTE LYMPHOCYTES# (MANUAL) 0.5 10^3/uL (0.5-4.7); ANISOCYTOSIS 2+; BASOPHILS % (MANUAL) 0 % (0-2); EOSINOPHILS % (MANUAL) 2 % (0-6); LYMPHOCYTES % (MANUAL) 3 % (13-45); MONOCYTES % (MANUAL) 0 % (3-13); NUCLEATED RED BLOOD CELLS 2 /100 WBC (0); SEGMENTED NEUTROPHILS % (MAN) 94 % (42-78); TOTAL CELLS COUNTED 100
[2019-08-26 16:50] LABS: HYPOCHROMASIA 1+; PLATELET COMMENT DECREASED
[2019-08-26] MEDS: METHYLPREDNISOLONE INJ 40 MG/1 ML SDV IV SCH (17:31)
[2019-08-26] MEDS: HEPARIN SODIUM,PORCINE/D5W 25,000 UNIT/250 ML RTUINJ IV PRN (18:24)
[2019-08-26] MEDS: PHENOL/SODIUM PHENOLATE 100 SPRAY/177 ML BOTTLE PO PRN (18:45)
--- NOTE | 2019-08-26 19:39 | Progress Note ---
Provider Note Provider Note: Critical care note: 08/25/2019 Critical care onset: 23:14 Critical care issue: Hypotension I was called by the patient's nurse due to persistent hypotension with systolic blood pressures in the upper 70s and low 80s. Patient was seen in evaluation and noted to be lethargic but arousable and had no obvious pain or other physical findings. Heart rate was regular with faint but palpable radial pulses bilaterally. Heart showed a regular rate and rhythm without murmurs on auscultation. Chest is clear to auscultation with easy respiratory effort noted. Extremities showed 3-4+ pitting edema of the bilateral lower extremities to the hips and also of the bilateral upper extremities. Patient was initially treated with a dopamine infusion at a set rate for renal perfusion of 0.003 mcg/kg/min. Her blood pressure responded to this therapeutic effort minimally and subsequently a 50 g infusion of albumin was ordered. Patient continued to have hypotension despite these efforts. Critical care end time: 06:59 Total critical care time: 22 minutes
[2019-08-26] MEDS: TRAZODONE HCL 50 MG TABLET PO SCH (22:24)
[2019-08-26] MEDS: WARFARIN SODIUM 3 MG TABLET PO SCH (22:25)
[2019-08-26] MEDS: ATORVASTATIN CALCIUM 20 MG TABLET PO SCH (22:26)
[2019-08-27] MEDS ORDERED: EPOETIN ALFA-EPBX 2,000 UNIT, EPOETIN ALFA-EPBX 3,000 UNIT, EPOETIN ALFA-EPBX 20,000 UN... IV PRN ×8 (05:00→09:14)
[2019-08-27] MEDS: PHENOL/SODIUM PHENOLATE 100 SPRAY/177 ML BOTTLE PO PRN ×2 (05:05→22:02)
[2019-08-27] MEDS: LIOTHYRONINE SODIUM 5 MCG TABLET PO SCH (05:05)
[2019-08-27] MEDS: LEVOTHYROXINE SODIUM 0.075 MG TABLET PO SCH (05:05)
[2019-08-27] MEDS: NORMAL SALINE 1000 ML 1,000 ML IV PRN (05:32)
[2019-08-27 05:33] LABS: HEMATOCRIT 22.6 % (36.0-47.0); MEAN CORPUSCULAR HEMOGLOBIN 32.5 pg (27.0-33.4); MEAN CORPUSCULAR HGB CONC 33.9 g/dL (32.0-36.0); MEAN CORPUSCULAR VOLUME 96 fl (80-97); PLATELET COUNT 146 10^3/uL (150-450); RED BLOOD COUNT 2.36 10^6/uL (3.72-5.28); RED CELL DISTRIBUTION WIDTH 19.8 % (11.5-14.0)
[2019-08-27 06:12] LABS: ABSOLUTE MONOCYTES # (MANUAL) 0.1 10^3/uL (0.1-1.4); BASOPHILS % (MANUAL) 0 % (0-2); EOSINOPHILS % (MANUAL) 0 % (0-6); LYMPHOCYTES % (MANUAL) 0 % (13-45); MONOCYTES % (MANUAL) 1 % (3-13); SEGMENTED NEUTROPHILS % (MAN) 99 % (42-78); TOTAL CELLS COUNTED 100
[2019-08-27 06:21] LABS: ANISOCYTOSIS 2+; OVALOCYTES 1+; PLATELET COMMENT DECREASED; POLYCHROMASIA SLIGHT
[2019-08-27 06:24] LABS: HEMOGLOBIN 7.7 g/dL (12.0-15.5)
[2019-08-27] MEDS: BUDESONIDE NEB 0.25 MG/2 ML AMPUL NEB SCH ×2 (09:05→20:09)
[2019-08-27 09:07] LABS: PROTHROMBIN TIME 15.3 SEC (11.4-15.4)
[2019-08-27] MEDS: CHOLECALCIFEROL (D3) 1,000 UNIT (25 MCG) TABLET PO SCH (12:03)
[2019-08-27] MEDS: DIGOXIN 0.125 MG TABLET PO SCH (12:03)
[2019-08-27] MEDS: DOCUSATE SODIUM 100 MG CAPSULE PO SCH ×2 (12:03→17:58)
[2019-08-27] MEDS: GENTAMICIN SULFATE 0.1% CREAM 15 GM TP SCH (12:03)
[2019-08-27] MEDS: ASPIRIN 81 MG TABLET, ENT COATED PO SCH (12:03)
[2019-08-27] MEDS: MEGESTROL ACETATE 20 MG TABLET PO SCH (12:04)
[2019-08-27] MEDS: VITAMIN B COMPLEX TABLET PO SCH (12:04)
--- NOTE | 2019-08-27 12:41 | PDOC PROGRESS REPORT ---
Subjective Progress Note for:: 08/27/19 Reason For Visit: Patient seen today on dialysis. She is undergoing dialysis without any issues. Her blood pressure on initial predialysis was 190 systolic Which was trending down nicely with progressive ultrafiltration. We will monitor to make sure she does not drop her systolic below 120. Labs and medications were reviewed. Dialysis orders were reviewed with the treating dialysis nurse. Physical Exam Vital Signs: Temp Pulse Resp BP Pulse Ox 98.4 F 120 H 20 112/73 99 08/27/19 03:16 08/27/19 09:05 08/27/19 09:05 08/27/19 06:00 08/27/19 11:56 Pulse Oximeter Continuous Start: 08/27/19 11:14 Freq: RTQ4 Status: Active Protocol: Document 08/27/19 11:56 LDA (Rec: 08/27/19 11:57 LDA [id number]) Pulse Oximetry Assessment Oxygen Saturation (92-100) 99 Oxygen Flow Rate (L/min) 15 Oxygen Delivery Method Partial-Rebreather Fraction of Inspired Oxygen (FIO2) 75 Equipment Usage Initial Set Up Continuous Pulse Oximeter 24 Hour Charge Charge Now Continuous SpO2 Machine # 6 Intake & Output 08/26/19 08/27/19 08/28/19 06:59 06:59 06:59 Intake Total 1674 2353 Output Total 1610 175 Balance 64 2178 Weight 77.6 kg 86.1 kg General appearance: PRESENT: disheveled Exam: Looks very sickly. Respiratory exam: PRESENT: clear to auscultation ash[place], rhonchi - Few scattered in both lung lam.. ABSENT: crackles Cardiovascular exam: PRESENT: +S1, +S2 GI/Abdominal exam: PRESENT: normal bowel sounds, soft, tenderness - She is tender around the exit site of the recently placed PD catheter. However there is no signs of redness or exit site infection.. ABSENT: distended, guarding, organomegaly, rebound Extremities exam: PRESENT: pedal edema Neurological exam: PRESENT: awake, oriented to person Psychiatric exam: PRESENT: depressed Results Laboratory Results: 08/27/19 04:45 08/25/19 05:50 08/26/19 08/27/19 15:30 04:45 WBC 12.5 H 12.0 H RBC 2.29 L 2.36 L Hgb 7.3 L 7.7 L Hct 22.2 L 22.6 L MCV 97 96 MCH 31.6 32.5 MCHC 32.7 33.9 RDW 19.2 H 19.8 H Plt Count 135 L 146 L Seg Neutrophils % Not Reportable Not Reportable 08/08/19 08/08/19 08/15/19 12:15 18:45 06:34 Troponin I 0.040 NT-Pro-B Natriuret Pep 10529 H 11030 H Impressions: Chest/Abdomen CTA 08/15/19 16:14 IMPRESSION: 1. Study degraded by motion artifact. No definite evidence for pulmonary emboli. 2. Cardiomegaly. Coronary artery calcifications. 3. Emphysema. Small bilateral pleural effusions. Bilateral airspace opacities, may be secondary to multifocal pneumonia; follow-up CT after treatment recommend ed to ensure complete resolution and exclude underlying neoplasm. 4. Mild mediastinal and right hilar adenopathy. 5. Small abdominal ascites. Mildly dilated common bile duct status post cholecystectomy. Head CT 08/20/19 00:00 IMPRESSION: CHRONIC MICROVASCULAR ISCHEMIA. NO ACUTE IMAGING FINDINGS IN THE BRAIN. EVIDENCE OF ACUTE STROKE: NO. KUB X-Ray 08/21/19 13:18 IMPRESSION: FEEDING TUBE DESCRIBED. Chest X-Ray 08/23/19 08:00 IMPRESSION: Tubes and lines as above. Otherwise unchanged radiographic ap pearance of the chest. Brain MRI with MRA 08/24/19 00:00 IMPRESSION: NORMAL MRA OF THE [place] OF [place]. 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 No acute findings EVIDENCE OF ACUTE STROKE: NO. Neck MRA 08/24/19 00:00 IMPRESSION: NO SIGNIFICANT STENOSIS OF THE CAROTID BIFURCATIONS. VERTEBRAL ARTERY SUBOPTIMALLY VISUALIZED ON TODAY'S MRA EXAM. LEFT VERTEBRAL ARTERY IS DOMINANT. Assessment & Plan - Diagnosis (1) End stage renal failure on dialysis Is this a current diagnosis for this admission?: Yes Plan: Patient currently undergoing dialysis. Vital signs are stable. Recommend ch ecking her blood pressure on her right lower extremity. Dialysis is being supervised to ensure safe and smooth procedure. Plan to remove between 1-2 l of fluid as tolerated. Discussed with the treating dialysis nurse. (2) Acute and chronic respiratory failure Qualifiers: Respiratory failure complication: hypoxia Qualified Code(s): J96.21 - Acute and chronic respiratory failure with hypoxia Is this a current diagnosis for this admission?: Yes Plan: Patient had gotten better but now seems to be deteriorating. Currently on ventimask. (3) Chronic obstructive pulmonary disease with acute exacerbation Is this a current diagnosis for this admission?: Yes Plan: She came in as such but now she seems to be decompensating. Management as per hospitalist. (4) Anemia in chronic kidney disease Is this a current diagnosis for this admission?: Yes Plan: Titrate with erythropoietin.Monitor hemoglobin which is 7.7/8 today. (5) History of GI bleed Plan: Today's hemoglobin is 7.7/8.0/7.7. Adjust erythropoietin. Monitor hemoglobin closely given her previous history of GI bleed and patient currently on anticoagulation for her paroxysmal atrial fibrillation with possibility of TIA/CVA. Monitor closely for need for blood transfusions. (6) Subclavian steal syndrome Is this a current diagnosis for this admission?: Yes Plan: Monitor for any symptoms and avoid hypotension. (7) History of CVA (cerebrovascular accident) Plan: Apparently has had recurrence during this admission with possible TIA/CVA and CT scan of the brain there showed old micro vascular ischemic changes/ Lacunar in farcts but nothing new.
--- NOTE | 2019-08-27 14:27 | PDOC PROGRESS REPORT ---
Subjective Progress Note for:: 08/27/19 Subjective:: Patient's condition continues to be tenuous. She was dialyzed today. In dialysis there was concern about hypoxemia however after repositioning the essential oxygen was found to be in the mid 90s to 100%. Patient did seem to be more lethargic today however she is known to be more lethargic usually on her day of dialysis. Her blood pressures stable in fact it is somewhat on the high side. Reason For Visit: ACUTE ON CHRONIC RESPIRATORY FAILURE,ESRD Physical Exam Vital Signs: Temp Pulse Resp BP Pulse Ox 97.8 F 114 H 18 157/43 H 94 08/27/19 12:23 08/27/19 12:23 08/27/19 12:23 08/27/19 12:23 08/27/19 12:23 Pulse Oximeter Continuous Start: 08/27/19 11:14 Freq: RTQ4 Status: Active Protocol: Document 08/27/19 11:56 LDA (Rec: 08/27/19 11:57 LDA [id number]) Pulse Oximetry Assessment Oxygen Saturation (92-100) 99 Oxygen Flow Rate (L/min) 15 Oxygen Delivery Method Partial-Rebreather Fraction of Inspired Oxygen (FIO2) 75 Equipment Usage Initial Set Up Continuous Pulse Oximeter 24 Hour Charge Charge Now Continuous SpO2 Machine # 6 Intake & Output 08/26/19 08/27/19 08/28/19 06:59 06:59 06:59 Intake Total 1674 2353 Output Total 1610 175 Balance 64 2178 Weight 77.6 kg 86.1 kg General appearance: PRESENT: no acute distress, morbidly obese, obese, other - Lethargic but arousable Head exam: PRESENT: atraumatic Ear exam: ABSENT: bleeding Neck exam: ABSENT: JVD, tenderness Respiratory exam: PRESENT: decreased breath sounds, rhonchi, unlabored. ABSENT: accessory muscle use Cardiovascular exam: PRESENT: irregular rhythm, +S1, +S2, systolic murmur GI/Abdominal exam: PRESENT: other - PD catheter in place NG tube in place Focused psych exam: PRESENT: other - Lethargic but easily arousable Results Laboratory Results: 08/27/19 04:45 08/25/19 05:50 08/26/19 08/27/19 15:30 04:45 WBC 12.5 H 12.0 H RBC 2.29 L 2.36 L Hgb 7.3 L 7.7 L Hct 22.2 L 22.6 L MCV 97 96 MCH 31.6 32.5 MCHC 32.7 33.9 RDW 19.2 H 19.8 H Plt Count 135 L 146 L Seg Neutrophils % Not Reportable Not Reportable 08/08/19 08/08/19 08/15/19 12:15 18:45 06:34 Troponin I 0.040 NT-Pro-B Natriuret Pep 80958 H 16148 H Impressions: Chest/Abdomen CTA 08/15/19 16:14 IMPRESSION: 1. Study degraded by motion artifact. No definite evidence for pulmonary emboli. 2. Cardiomegaly. Coronary artery calcifications. 3. Emphysema. Small bilateral pleural effusions. Bilateral airspace opacities, may be secondary to multifocal pneumonia; follow-up CT after treatment gilbert mmended to ensure complete resolution and exclude underlying neoplasm. 4. Mild mediastinal and right hilar adenopathy. 5. Small abdominal ascites. Mildly dilated common bile duct status post cholecy stectomy. Head CT 08/20/19 00:00 IMPRESSION: CHRONIC MICROVASCULAR ISCHEMIA. NO ACUTE IMAGING FINDINGS IN THE BRAIN. EVIDENCE OF ACUTE STROKE: NO. KUB X-Ray 08/21/19 13:18 IMPRESSION: FEEDING TUBE DESCRIBED. Chest X-Ray 08/23/19 08:00 IMPRESSION: Tubes and lines as above. Otherwise unchanged radiographic appearance of the chest. Brain MRI with MRA 08/24/19 00:00 IMPRESSION: NORMAL MRA OF THE [place] OF [place]. 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 No acute findings EVIDENCE OF ACUTE STROKE: NO. Neck MRA 08/24/19 00:00 IMPRESSION: NO SIGNIFICANT STENOSIS OF THE CAROTID BIFURCATIONS. VERTEBRAL ARTERY SUBOPTIMALLY VISUALIZED ON TODAY'S MRA EXAM. LEFT VERTEBRAL ARTERY IS DOMINANT. Assessment and Plan - Diagnosis (1) Acute and chronic respiratory failure Qualifiers: Respiratory failure complication: hypoxia Qualified Code(s): J96.21 - Acute and chronic respiratory failure with hypoxia Is this a current diagnosis for this admission?: Yes Plan: Hypoxic respiratory failure thought to be secondary to COPD exacerbation, volume overload from ESRD and complicated by pneumonia. Patient no longer requiring continuous BiPAP. Continue 4 L nasal cannula and nocturnal BiPAP. Taper oxygen as tolerated Current oxygenation is adequate We will monitor closely (2) Acute hypoxemic respiratory failure Is this a current diagnosis for this admission?: Yes Plan: Wean CPAP as tolerated. (3) Chronic obstructive pulmonary disease with acute exacerbation Is this a current diagnosis for this admission?: Yes Plan: Continue bronchodilators (4) End stage renal failure on dialysis Is this a current diagnosis for this admission?: Yes Plan: Continue dialysis as tolerated (5) Malnutrition Qualifiers: Malnutrition type: protein-calorie malnutrition Protein-calorie mal nutrition severity: moderate Qualified Code(s): E44.0 - Moderate protein- calorie malnutrition Is this a current diagnosis for this admission?: Yes Plan: We will continue with NG tube feeding as patient's oral intake remains very poor (6) Persistent atrial fibrillation Is this a current diagnosis for this admission?: Yes Plan: Was started on warfarin with heparin bridge while in the ICU. Continue to monitor INR. We will continue heparin bridge for now given history of strokes and very high chads vasc score. Also on digoxin. Increase Warfarin as INR still at 1.2 - Plan Summary Summary: Patient's prognosis is pretty poor\ Pulmonary hypertension with pulmonary pressure more than 60 mm per mercury. She has diastolic dysfunction, chronic with no acute exacerbation Protein calorie malnutrition, moderate. She is still on NG tube feeding as her oral intake is apparently poor. Will DC NG tube once oral intake is improved Morbid obesity
[2019-08-27] MEDS: METHYLPREDNISOLONE INJ 40 MG/1 ML SDV IV SCH (17:58)
[2019-08-27] MEDS: HEPARIN SODIUM,PORCINE/D5W 25,000 UNIT/250 ML RTUINJ IV PRN (17:58)
[2019-08-27] MEDS ORDERED: WARFARIN SODIUM 4 MG TABLET PO SCH ×2 (22:00)
[2019-08-27] MEDS: TRAZODONE HCL 50 MG TABLET PO SCH (22:02)
[2019-08-27] MEDS: ATORVASTATIN CALCIUM 20 MG TABLET PO SCH (22:02)
[2019-08-27] MEDS: WARFARIN SODIUM 3 MG TABLET PO SCH (22:05)
[2019-08-28] MEDS: NORMAL SALINE 1000 ML 1,000 ML IV PRN (01:01)
[2019-08-28] MEDS: LIOTHYRONINE SODIUM 5 MCG TABLET PO SCH (05:49)
[2019-08-28] MEDS: LEVOTHYROXINE SODIUM 0.075 MG TABLET PO SCH (05:49)
[2019-08-28] MEDS: BUDESONIDE NEB 0.25 MG/2 ML AMPUL NEB SCH ×2 (08:22→20:12)
[2019-08-28 10:16] LABS: HEMATOCRIT 21.7 % (36.0-47.0); MEAN CORPUSCULAR HEMOGLOBIN 32.8 pg (27.0-33.4); MEAN CORPUSCULAR HGB CONC 33.8 g/dL (32.0-36.0); MEAN CORPUSCULAR VOLUME 97 fl (80-97); PLATELET COUNT 159 10^3/uL (150-450); RED BLOOD COUNT 2.23 10^6/uL (3.72-5.28); RED CELL DISTRIBUTION WIDTH 20.6 % (11.5-14.0); WHITE BLOOD COUNT 10.3 10^3/uL (4.0-10.5)
[2019-08-28 10:19] LABS: HEMOGLOBIN 7.3 g/dL (12.0-15.5); INTERNATIONAL RATION (INR) 1.74; PROTHROMBIN TIME 20.6 SEC (11.4-15.4)
[2019-08-28 10:21] LABS: PARTIAL THROMBOPLASTIN TIME 94.7 SEC (23.5-35.8)
[2019-08-28] MEDS: DOCUSATE SODIUM 100 MG CAPSULE PO SCH ×2 (10:39→17:21)
[2019-08-28] MEDS: ASPIRIN 81 MG TABLET, ENT COATED PO SCH (10:39)
[2019-08-28] MEDS: CHOLECALCIFEROL (D3) 1,000 UNIT (25 MCG) TABLET PO SCH (10:40)
[2019-08-28] MEDS: VITAMIN B COMPLEX TABLET PO SCH (10:40)
[2019-08-28] MEDS: MEGESTROL ACETATE 20 MG TABLET PO SCH (10:40)
[2019-08-28] MEDS: DIGOXIN 0.125 MG TABLET PO SCH (11:06)
[2019-08-28] MEDS: PHENOL/SODIUM PHENOLATE 100 SPRAY/177 ML BOTTLE PO PRN (11:10)
[2019-08-28 11:24] LABS: ABSOLUTE LYMPHOCYTES# (MANUAL) 0.3 10^3/uL (0.5-4.7); ABSOLUTE MONOCYTES # (MANUAL) 0.1 10^3/uL (0.1-1.4); BASOPHILS % (MANUAL) 0 % (0-2); EOSINOPHILS % (MANUAL) 0 % (0-6); LYMPHOCYTES % (MANUAL) 3 % (13-45); MONOCYTES % (MANUAL) 1 % (3-13); SEGMENTED NEUTROPHILS % (MAN) 96 % (42-78); TOTAL CELLS COUNTED 100
[2019-08-28 11:25] LABS: ANISOCYTOSIS 2+; POIKILOCYTOSIS 1+; POLYCHROMASIA 1+
[2019-08-28 11:26] LABS: OVALOCYTES 1+; PLATELET COMMENT ADEQUATE
--- NOTE | 2019-08-28 12:22 | PDOC PROGRESS REPORT ---
Subjective Progress Note for:: 08/28/19 Subjective:: Patient awake and alert today. She however does complain of difficulty swallowing due to a sore throat. Reason For Visit: ACUTE ON CHRONIC RESPIRATORY FAILURE,ESRD Physical Exam Vital Signs: Temp Pulse Resp BP Pulse Ox 98.4 F 98 20 118/55 L 98 08/28/19 03:59 08/28/19 08:22 08/28/19 08:22 08/28/19 03:59 08/28/19 08:22 Pulse Oximeter Continuous Start: 08/27/19 11:14 Freq: RTQ4 Status: Active Protocol: Document 08/28/19 08:22 LDA (Rec: 08/28/19 10:12 LDA [email or web address]) Pulse Oximetry Assessment Oxygen Saturation (92-100) 98 Oxygen Flow Rate (L/min) 3 Oxygen Delivery Method Nasal Cannula Fraction of Inspired Oxygen (FIO2) 32 Equipment Usage Equipment Standby Continuous SpO2 Machine # 6 Intake & Output 08/27/19 08/28/19 08/29/19 06:59 06:59 06:59 Intake Total 2353 1423 Output Total 175 2535 Balance 2178 -1112 Weight 86.1 kg 85.9 kg General appearance: PRESENT: no acute distress, obese, well-developed Head exam: PRESENT: atraumatic, normocephalic Eye exam: PRESENT: EOMI, PERRLA. ABSENT: scleral icterus Mouth exam: PRESENT: dry mucosa, moist, tongue midline, other - No exudates Neck exam: ABSENT: carotid bruit, JVD, lymphadenopathy, thyromegaly Respiratory exam: PRESENT: clear to auscultation [place]. ABSENT: rales, rhonchi, wheezes Cardiovascular exam: PRESENT: RRR. ABSENT: diastolic murmur, rubs, systolic murmur Pulses: PRESENT: normal dorsalis pedis pul GI/Abdominal exam: PRESENT: normal bowel sounds, soft, other - NG tube in place PD catheter in place. ABSENT: distended, guarding, mass, organolmegaly, rebound, tenderness Rectal exam: PRESENT: deferred Extremities exam: PRESENT: full ROM. ABSENT: calf tenderness, clubbing, pedal edema Neurological exam: PRESENT: alert, awake, oriented to person, oriented to place, oriented to time, oriented to situation, CN II-XII grossly intact. ABSENT: motor sensory deficit Psychiatric exam: PRESENT: appropriate affect, normal mood. ABSENT: homicidal ideation, suicidal ideation Skin exam: PRESENT: dry, intact, warm. ABSENT: cyanosis, rash Results Laboratory Results: 08/28/19 10:00 08/25/19 05:50 08/28/19 10:00 WBC 10.3 RBC 2.23 L Hgb 7.3 L Hct 21.7 L MCV 97 MCH 32.8 MCHC 33.8 RDW 20.6 H Plt Count 159 Seg Neutrophils % Not Reportable 08/08/19 08/08/19 08/15/19 12:15 18:45 06:34 Troponin I 0.040 NT-Pro-B Natriuret Pep 58831 H 69915 H Impressions: Chest/Abdomen CTA 08/15/19 16:14 IMPRESSION: 1. Study degraded by motion artifact. No definite evidence for pulmonary emboli. 2. Cardiomegaly. Coronary artery calcifications. 3. Emphysema. Small bilateral pleural effusions. Bilateral airspace opacities, may be secondary to multifocal pneumonia; follow-up CT after treatment recommended to ensure complete resolution and exclude underlying neoplasm. 4. Mild mediastinal and right hilar adenopathy. 5. Small abdominal ascites. Mildly dilated common bile duct status post cholecystectomy. Head CT 08/20/19 00:00 IMPRESSION: CHRONIC MICROVASCULAR ISCHEMIA. NO ACUTE IMAGING FINDINGS IN THE BRAIN. EVIDENCE OF ACUTE STROKE: NO. KUB X-Ray 08/21/19 13:18 IMPRESSION: FEEDING TUBE DESCRIBED. Chest X-Ray 08/23/19 08:00 IMPRESSION: Tubes and lines as above. Otherwise unchanged radiographic appearance of the chest. Brain MRI with MRA 08/24/19 00:00 IMPRESSION: NORMAL MRA OF THE [place]. 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 No acute findings EVIDENCE OF ACUTE STROKE: NO. Neck MRA 08/24/19 00:00 IMPRESSION: NO SIGNIFICANT STENOSIS OF THE CAROTID BIFURCATIONS. VERTEBRAL ARTERY SUBOPTIMALLY VISUALIZED ON TODAY'S MRA EXAM. LEFT VERTEBRAL ARTERY IS DOMINANT. Assessment and Plan - Diagnosis (1) Acute and chronic respiratory failure Qualifiers: Respiratory failure complication: hypoxia Qualified Code(s): J96.21 - Acute and chronic respiratory failure with hypoxia Is this a current diagnosis for this admission?: Yes Plan: Hypoxic respiratory failure thought to be secondary to COPD exacerbation, volume overload from ESRD and complicated by pneumonia. Patient no longer requiring continuous BiPAP. (2) Acute hypoxemic respiratory failure Is this a current diagnosis for this admission?: Yes Plan: Wean CPAP as tolerated. (3) Chronic obstructive pulmonary disease with acute exacerbation Is this a current diagnosis for this admission?: Yes Plan: Continue bronchodilators Also been on steroids and at least 40 mg daily of Solu-Medrol since August 16. I have decreased this to 20 mg today. We will continue to taper and hopefully wean off as appropriate (4) End stage renal failure on dialysis Is this a current diagnosis for this admission?: Yes Plan: Continue dialysis as per nephrology (5) Malnutrition Qualifiers: Malnutrition type: protein-calorie malnutrition Protein-calorie malnutrition severity: moderate Qualified Code(s): E44.0 - Moderate protein- calorie malnutrition Is this a current diagnosis for this admission?: Yes Plan: Severe protein calorie malnutrition. Patient encouraged (6) Persistent atrial fibrillation Is this a current diagnosis for this admission?: Yes Plan: Continue digoxin, heparin bridge as well as Coumadin. Her INR is 1.7 today. I had bumped her Coumadin up to 6 mg daily. We will continue to adjust as appropriate (7) Anemia in chronic kidney disease Qualifiers: Chronic kidney disease stage: on chronic dialysis Qualified Code(s): N18.6 - End stage renal disease; D63.1 - Anemia in chronic kidney disease; Z99.2 - Dependence on renal dialysis Is this a current diagnosis for this admission?: Yes Plan: With acute exacerbation compounded by prolonged hospitalization and frequent phlebotomies. We will continue to monitor and transfuse as needed she may benefit from erythropoietin stimulating agents - Plan Summary Summary: Patient's prognosis is pretty poor Pulmonary hypertension with pulmonary pressure more than 60 mm per mercury. She has diastolic dysfunction, chronic with no acute exacerbation Protein calorie malnutrition, moderate. She is still on NG tube feeding as her oral intake is apparently poor. Will DC NG tube once oral intake is improved Morbid obesity - Time Medications reviewed and adjusted accordingly: Yes Anticipated discharge: SNF
[2019-08-28] MEDS: LIDOCAINE 2% VISCOUS SOLN 15 ML UDCUP PO PRN ×2 (13:14→17:21)
[2019-08-28] MEDS: GENTAMICIN SULFATE 0.1% CREAM 15 GM TP SCH (14:43)
[2019-08-28] MEDS: METHYLPREDNISOLONE INJ 40 MG/1 ML SDV IV SCH (17:21)
[2019-08-28] MEDS: TRAZODONE HCL 50 MG TABLET PO SCH (21:03)
[2019-08-28] MEDS: ATORVASTATIN CALCIUM 20 MG TABLET PO SCH (21:05)
[2019-08-28] MEDS: WARFARIN SODIUM 3 MG TABLET PO SCH (21:09)
[2019-08-29] MEDS: LEVOTHYROXINE SODIUM 0.075 MG TABLET PO SCH (05:27)
[2019-08-29 06:15] LABS: HEMATOCRIT 20.8 % (36.0-47.0); MEAN CORPUSCULAR HEMOGLOBIN 32.7 pg (27.0-33.4); MEAN CORPUSCULAR HGB CONC 33.5 g/dL (32.0-36.0); MEAN CORPUSCULAR VOLUME 97 fl (80-97); PLATELET COUNT 164 10^3/uL (150-450); RED BLOOD COUNT 2.14 10^6/uL (3.72-5.28); RED CELL DISTRIBUTION WIDTH 20.8 % (11.5-14.0); WHITE BLOOD COUNT 6.9 10^3/uL (4.0-10.5)
[2019-08-29 06:18] LABS: INTERNATIONAL RATION (INR) 1.85; PROTHROMBIN TIME 21.6 SEC (11.4-15.4)
[2019-08-29 06:20] LABS: PARTIAL THROMBOPLASTIN TIME 113.5 SEC (23.5-35.8)
[2019-08-29 07:03] LABS: INTERNATIONAL RATION (INR) 1.89
[2019-08-29 07:18] LABS: ABSOLUTE LYMPHOCYTES# (MANUAL) 0.3 10^3/uL (0.5-4.7); ABSOLUTE MONOCYTES # (MANUAL) 0.1 10^3/uL (0.1-1.4); ANISOCYTOSIS 2+; BASOPHILS % (MANUAL) 0 % (0-2); EOSINOPHILS % (MANUAL) 0 % (0-6); HYPOCHROMASIA SLIGHT; LYMPHOCYTES % (MANUAL) 4 % (13-45); MONOCYTES % (MANUAL) 1 % (3-13); POLYCHROMASIA SLIGHT; SEGMENTED NEUTROPHILS % (MAN) 95 % (42-78); TOTAL CELLS COUNTED 100
[2019-08-29 07:19] LABS: PLATELET COMMENT ADEQUATE
[2019-08-29] MEDS: HEPARIN SODIUM,PORCINE/D5W 25,000 UNIT/250 ML RTUINJ IV PRN (07:44)
[2019-08-29] MEDS: LIOTHYRONINE SODIUM 5 MCG TABLET PO SCH (07:48)
[2019-08-29] MEDS: LIDOCAINE 2% VISCOUS SOLN 15 ML UDCUP PO PRN ×4 (08:46→22:43)
[2019-08-29] MEDS: ASPIRIN 81 MG TABLET, ENT COATED PO SCH (09:41)
[2019-08-29] MEDS: DOCUSATE SODIUM 100 MG CAPSULE PO SCH ×2 (09:41→17:02)
[2019-08-29] MEDS: MEGESTROL ACETATE 20 MG TABLET PO SCH (09:42)
[2019-08-29] MEDS: CHOLECALCIFEROL (D3) 1,000 UNIT (25 MCG) TABLET PO SCH (09:42)
[2019-08-29] MEDS: VITAMIN B COMPLEX TABLET PO SCH (09:42)
[2019-08-29] MEDS: GENTAMICIN SULFATE 0.1% CREAM 15 GM TP SCH (09:45)
[2019-08-29] MEDS: DIGOXIN 0.125 MG TABLET PO SCH (09:46)
[2019-08-29] MEDS: BUDESONIDE NEB 0.25 MG/2 ML AMPUL NEB SCH ×2 (10:20→20:02)
[2019-08-29 12:36] LABS: INTERNATIONAL RATION (INR) 1.84; PROTHROMBIN TIME 21.5 SEC (11.4-15.4)
[2019-08-29 12:38] LABS: PARTIAL THROMBOPLASTIN TIME 76.4 SEC (23.5-35.8)
[2019-08-29] MEDS ORDERED: NORMAL SALINE 250 ML IV PRN ×2 (14:25)
--- NOTE | 2019-08-29 14:25 | PDOC PROGRESS REPORT ---
Subjective Progress Note for:: 08/29/19 Subjective:: Patient awake and alert today. She appears to be somewhat stable Ate a little bit more today Reason For Visit: ACUTE ON CHRONIC RESPIRATORY FAILURE,ESRD Physical Exam Vital Signs: Temp Pulse Resp BP Pulse Ox 97.5 F 85 18 100/54 L 100 08/29/19 08:43 08/29/19 08:43 08/29/19 08:43 08/29/19 08:43 08/29/19 12:00 Pulse Oximeter Continuous Start: 08/27/19 11:14 Freq: RTQ4 Status: Active Protocol: Document 08/29/19 12:00 LDA (Rec: 08/29/19 12:31 LDA [id number]) Pulse Oximetry Assessment Oxygen Saturation (92-100) 100 Oxygen Flow Rate (L/min) 3 Oxygen Delivery Method Nasal Cannula Fraction of Inspired Oxygen (FIO2) 32 Equipment Usage Equipment in Use Continuous SpO2 Machine # 6 Intake & Output 08/28/19 08/29/19 08/30/19 06:59 06:59 06:59 Intake Total 1423 1368 Output Total 2535 195 Balance -1112 1173 Weight 85.9 kg 87.5 kg General appearance: PRESENT: no acute distress, obese, well-developed Head exam: PRESENT: atraumatic Mouth exam: PRESENT: tongue midline Neck exam: PRESENT: full ROM. ABSENT: JVD, tenderness Respiratory exam: PRESENT: rhonchi, unlabored Cardiovascular exam: PRESENT: irregular rhythm, +S1, +S2 GI/Abdominal exam: PRESENT: soft, other - NGT and PD catheter in place Rectal exam: PRESENT: deferred Extremities exam: PRESENT: pedal edema, +2 edema Neurological exam: PRESENT: alert, awake, oriented to person, oriented to place, oriented to time, oriented to situation Results Laboratory Results: 08/29/19 05:30 08/25/19 05:50 08/29/19 05:30 WBC 6.9 RBC 2.14 L Hgb 7.0 L Hct 20.8 L MCV 97 MCH 32.7 MCHC 33.5 RDW 20.8 H Plt Count 164 Seg Neutrophils % Not Reportable 08/08/19 08/08/19 08/15/19 12:15 18:45 06:34 Troponin I 0.040 NT-Pro-B Natriuret Pep 80757 H 99512 H Impressions: Chest/Abdomen CTA 08/15/19 16:14 IMPRESSION: 1. Study degraded by motion artifact. No definite evidence for pulmonary emboli. 2. Cardiomegaly. Coronary artery calcifications. 3. Emphysema. Small bilateral pleural effusions. Bilateral airspace opacities, may be secondary to multifocal pneumonia; follow-up CT after treatment recommended to ensure complete resolution and exclude underlying neoplasm. 4. Mild mediastinal and right hilar adenopathy. 5. Small abdominal ascites. Mildly dilated common bile duct status post cholecystectomy. Head CT 08/20/19 00:00 IMPRESSION: CHRONIC MICROVASCULAR ISCHEMIA. NO ACUTE IMAGING FINDINGS IN THE BRAIN. EVIDENCE OF ACUTE STROKE: NO. KUB X-Ray 08/21/19 13:18 IMPRESSION: FEEDING TUBE DESCRIBED. Chest X-Ray 08/23/19 08:00 IMPRESSION: Tubes and lines as above. Otherwise unchanged radiographic appearance of the chest. Brain MRI with MRA 08/24/19 00:00 IMPRESSION: NORMAL MRA OF THE [place]. 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 No acute findings EVIDENCE OF ACUTE STROKE: NO. Neck MRA 08/24/19 00:00 IMPRESSION: NO SIGNIFICANT STENOSIS OF THE CAROTID BIFURCATIONS. VERTEBRAL ARTERY SUBOPTIMALLY VISUALIZED ON TODAY'S MRA EXAM. LEFT VERTEBRAL ARTERY IS DOMINANT. Assessment and Plan - Diagnosis (1) Acute and chronic respiratory failure Qualifiers: Respiratory failure complication: hypoxia Qualified Code(s): J96.21 - Acute and chronic respiratory failure with hypoxia Is this a current diagnosis for this admission?: Yes Plan: Hypoxic respiratory failure thought to be secondary to COPD exacerbation, volume overload from ESRD and complicated by pneumonia. Patient no longer requiring continuous BiPAP. (2) Acute hypoxemic respiratory failure Is this a current diagnosis for this admission?: Yes Plan: Wean CPAP and Oxygen as tolerated. (3) Chronic obstructive pulmonary disease with acute exacerbation Is this a current diagnosis for this admission?: Yes Plan: Continue bronchodilators Also been on steroids and at least 40 mg daily of Solu-Medrol since August 16. I have decreased this to 20 mg . We will continue to taper and hopefully wean off as appropriate (4) End stage renal failure on dialysis Is this a current diagnosis for this admission?: Yes Plan: Continue dialysis as per nephrology (5) Malnutrition Qualifiers: Malnutrition type: protein-calorie malnutrition Protein-calorie malnutrition severity: moderate Qualified Code(s): E44.0 - Moderate protein- calorie malnutrition Is this a current diagnosis for this admission?: Yes (6) Persistent atrial fibrillation Is this a current diagnosis for this admission?: Yes Plan: Continue digoxin, heparin bridge as well as Coumadin. Her INR is 1.84 today. I had bumped her Coumadin up to 6 mg daily. We will continue to adjust as appropriate (7) Anemia in chronic kidney disease Qualifiers: Chronic kidney disease stage: on chronic dialysis Qualified Code(s): N18.6 - End stage renal disease; D63.1 - Anemia in chronic kidney disease; Z99.2 - Dependence on renal dialysis Is this a current diagnosis for this admission?: Yes Plan: With acute exacerbation compounded by prolonged hospitalization and frequent phlebotomies. Suggest transfusion in am during dialysis she may benefit from erythropoietin stimulating agents - Plan Summary Summary: She has been on heparin since August 21 and Coumadin was started on August 27. INR is 1.84. Continue to monitor INR and DC heparin once therapeutic. Hemoglobin is 7. Will suggest patient should be transfused during dialysis in a.m. At this point there is no evidence of any acute blood loss. It appears she has not been transfused since admission and if that this is the lowest hemoglobin has been. Her respiratory status appears to have stabilized Patient's prognosis is pretty poor Pulmonary hypertension with pulmonary pressure more than 60 mm per mercury. She has diastolic dysfunction, chronic with no acute exacerbation Protein calorie malnutrition, moderate. She is still on NG tube feeding as her oral intake is apparently poor. Will DC NG tube once oral intake is improved Morbid obesity
[2019-08-29] MEDS: METHYLPREDNISOLONE INJ 40 MG/1 ML SDV IV SCH (17:09)
[2019-08-29] MEDS ORDERED: OXYCODONE-ACETAMINOPHEN 5-325 MG TABLET PO PRN (17:26)
[2019-08-29] MEDS ORDERED: WARFARIN SODIUM 3 MG TABLET PO SCH (22:00)
[2019-08-29] MEDS: TRAZODONE HCL 50 MG TABLET PO SCH (22:40)
[2019-08-29] MEDS: ATORVASTATIN CALCIUM 20 MG TABLET PO SCH (22:40)
[2019-08-30] MEDS: LIOTHYRONINE SODIUM 5 MCG TABLET PO SCH (06:15)
[2019-08-30] MEDS: LEVOTHYROXINE SODIUM 0.075 MG TABLET PO SCH (06:15)
[2019-08-30] MEDS: LIDOCAINE 2% VISCOUS SOLN 15 ML UDCUP PO PRN ×2 (06:15→12:54)
[2019-08-30 06:53] LABS: HEMATOCRIT 21.7 % (36.0-47.0); MEAN CORPUSCULAR HEMOGLOBIN 32.1 pg (27.0-33.4); MEAN CORPUSCULAR HGB CONC 32.7 g/dL (32.0-36.0); MEAN CORPUSCULAR VOLUME 98 fl (80-97); PLATELET COUNT 170 10^3/uL (150-450); RED BLOOD COUNT 2.21 10^6/uL (3.72-5.28); RED CELL DISTRIBUTION WIDTH 20.6 % (11.5-14.0); WHITE BLOOD COUNT 6.1 10^3/uL (4.0-10.5)
[2019-08-30 06:57] LABS: HEMOGLOBIN 7.1 g/dL (12.0-15.5); PROTHROMBIN TIME 23.9 SEC (11.4-15.4)
[2019-08-30 07:15] LABS: ANION GAP 8 (5-19); BLOOD UREA NITROGEN 92 mg/dL (7-20); CALCIUM 7.7 mg/dL (8.4-10.2); CARBON DIOXIDE 27 mmol/L (22-30); CHLORIDE 102 mmol/L (98-107); GLUCOSE 74 mg/dL (75-110); POTASSIUM 4.5 mmol/L (3.6-5.0)
[2019-08-30 07:32] LABS: ABSOLUTE LYMPHOCYTES# (MANUAL) 0.4 10^3/uL (0.5-4.7); ABSOLUTE MONOCYTES # (MANUAL) 0.1 10^3/uL (0.1-1.4); BASOPHILS % (MANUAL) 0 % (0-2); EOSINOPHILS % (MANUAL) 1 % (0-6); LYMPHOCYTES % (MANUAL) 5 % (13-45); MONOCYTES % (MANUAL) 2 % (3-13); SEGMENTED NEUTROPHILS % (MAN) 91 % (42-78); TOTAL CELLS COUNTED 100
[2019-08-30 07:33] LABS: ANISOCYTOSIS 2+; POIKILOCYTOSIS SLIGHT; POLYCHROMASIA 1+
[2019-08-30 07:34] LABS: PLATELET COMMENT ADEQUATE; SCHISTOCYTES SLIGHT; TEAR DROP CELLS SLIGHT
[2019-08-30] MEDS ORDERED: EPOETIN ALFA-EPBX 20,000 UNIT in SYRINGE, DISPOSABLE, 1 EACH IV PRN ×2 (08:24→08:34)
[2019-08-30] MEDS: BUDESONIDE NEB 0.25 MG/2 ML AMPUL NEB SCH ×2 (09:01→20:32)
[2019-08-30] MEDS: DOCUSATE SODIUM 100 MG CAPSULE PO SCH ×2 (09:52→22:00)
[2019-08-30] MEDS: HEPARIN SODIUM,PORCINE/D5W 25,000 UNIT/250 ML RTUINJ IV PRN (09:56)
[2019-08-30] MEDS: CHOLECALCIFEROL (D3) 1,000 UNIT (25 MCG) TABLET PO SCH (09:57)
[2019-08-30] MEDS: ASPIRIN 81 MG TABLET, ENT COATED PO SCH (09:57)
[2019-08-30] MEDS: VITAMIN B COMPLEX TABLET PO SCH (09:57)
[2019-08-30] MEDS: DIGOXIN 0.125 MG TABLET PO SCH (09:57)
[2019-08-30] MEDS: MEGESTROL ACETATE 20 MG TABLET PO SCH (09:58)
[2019-08-30] MEDS: GENTAMICIN SULFATE 0.1% CREAM 15 GM TP SCH (09:58)
--- NOTE | 2019-08-30 14:23 | PDOC PROGRESS REPORT ---
Subjective Progress Note for:: 08/30/19 Subjective:: Patient currently still seems very fragile and very weak. Very debilitated on examination. Currently does admit to some shortness of breath but not significantly more than before. Denies any pain anywhere currently. Reason For Visit: ACUTE ON CHRONIC RESPIRATORY FAILURE,ESRD Physical Exam Vital Signs: Temp Pulse Resp BP Pulse Ox 97.5 F 88 22 H 100/50 L 100 08/30/19 08:12 08/30/19 09:00 08/30/19 09:00 08/30/19 08:12 08/30/19 12:00 Pulse Oximeter Continuous Start: 08/27/19 11:14 Freq: RTQ4 Status: Active Protocol: Document 08/30/19 12:00 LDA (Rec: 08/30/19 12:18 LDA [id number]) Pulse Oximetry Assessment Oxygen Saturation (92-100) 100 Oxygen Flow Rate (L/min) 3 Oxygen Delivery Method Nasal Cannula Fraction of Inspired Oxygen (FIO2) 32 Equipment Usage Equipment in Use Continuous SpO2 Machine # 6 Intake & Output 08/29/19 08/30/19 08/31/19 06:59 06:59 06:59 Intake Total 1368 270 194 Output Total 195 210 Balance 1173 60 194 Weight 87.5 kg 90.8 kg 90.8 kg General appearance: PRESENT: no acute distress, cooperative, other - Appears very fatigued Mouth exam: PRESENT: other - Speech remains slurred Neck exam: ABSENT: JVD Respiratory exam: PRESENT: rhonchi, symmetrical, unlabored. ABSENT: tachypnea, wheezes Cardiovascular exam: PRESENT: irregular rhythm, +S1, +S2. ABSENT: tachycardia GI/Abdominal exam: PRESENT: soft. ABSENT: rebound, rigid, tenderness Extremities exam: PRESENT: +2 edema Musculoskeletal exam: ABSENT: ambulatory Neurological exam: PRESENT: alert, awake, oriented to person, oriented to place, oriented to time, other - Speech is slurred Psychiatric exam: ABSENT: agitated, anxious Results Laboratory Results: 08/30/19 06:15 08/30/19 06:15 08/29/19 08/30/19 08/30/19 16:15 06:15 06:15 WBC 6.1 RBC 2.21 L Hgb 7.1 L Hct 21.7 L MCV 98 H MCH 32.1 MCHC 32.7 RDW 20.6 H Plt Count 170 Seg Neutrophils % Not Reportable Sodium 136.5 L Potassium 4.5 Chloride 102 Carbon Dioxide 27 Anion Gap 8 BUN 92 H Creatinine 3.86 H Est GFR ( Amer) 14 L Glucose 74 L Calcium 7.7 L Blood Type A POSITIVE Antibody Screen NEGATIVE 08/08/19 08/08/19 08/15/19 12:15 18:45 06:34 Troponin I 0.040 NT-Pro-B Natriuret Pep 95596 H 58287 H Impressions: Chest/Abdomen CTA 08/15/19 16:14 IMPRESSION: 1. Study degraded by motion artifact. No definite evidence for pulmonary emboli. 2. Cardiomegaly. Coronary artery calcifications. 3. Emphysema. Small bilateral pleural effusions. Bilateral airspace opacities, may be secondary to multifocal pneumonia; follow-up CT after treatment recommended to ensure complete resolution and exclude underlying neoplasm. 4. Mild mediastinal and right hilar adenopathy. 5. Small abdominal ascites. Mildly dilated common bile duct status post cholecystectomy. Head CT 08/20/19 00:00 IMPRESSION: CHRONIC MICROVASCULAR ISCHEMIA. NO ACUTE IMAGING FINDINGS IN THE BRAIN. EVIDENCE OF ACUTE STROKE: NO. KUB X-Ray 08/21/19 13:18 IMPRESSION: FEEDING TUBE DESCRIBED. Chest X-Ray 08/23/19 08:00 IMPRESSION: Tubes and lines as above. Otherwise unchanged radiographic appearance of the chest. Brain MRI with MRA 08/24/19 00:00 IMPRESSION: NORMAL MRA OF THE [place]. 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 No acute findings EVIDENCE OF ACUTE STROKE: NO. Neck MRA 08/24/19 00:00 IMPRESSION: NO SIGNIFICANT STENOSIS OF THE CAROTID BIFURCATIONS. VERTEBRAL ARTERY SUBOPTIMALLY VISUALIZED ON TODAY'S MRA EXAM. LEFT VERTEBRAL ARTERY IS DOMINANT. Assessment and Plan - Diagnosis (1) Acute and chronic respiratory failure Qualifiers: Respiratory failure complication: hypoxia Qualified Code(s): J96.21 - Acute and chronic respiratory failure with hypoxia Is this a current diagnosis for this admission?: Yes Plan: Hypoxic respiratory failure initially thought to be secondary to COPD, volume overload from ESRD and complicated by pneumonia. Now that volume overload, COPD exacerbation and pneumonia have resolved, will attempt to wean off oxygen. May still has some chronic hypoxia from underlying COPD. (2) Stroke Qualifiers: CVA mechanism: thrombosis Precerebral and cerebral artery: unspecified cerebral artery Qualified Code(s): I63.30 - Cerebral infarction due to thrombosis of unspecified cerebral artery Is this a current diagnosis for this admission?: Yes Plan: MRI of the brain however shows no acute infarcts but does show several old infarcts. Will need extensive physical and Occupational Therapy (3) COPD exacerbation Is this a current diagnosis for this admission?: Yes Plan: Nebs as needed. Acute exacerbation seems to be over. Wean Solu-Medrol further today to 10 mg every afternoon. (4) Persistent atrial fibrillation Is this a current diagnosis for this admission?: Yes Plan: Continue digoxin, heparin bridge as well as Coumadin. INR is 2.1 today after receiving 6 mg for 2 days but did receive 3 mg yesterday. I have increased his warfarin back to 5 mg as I think that it is more suitable given the INR trend. Continue to monitor INR. Will discontinue heparin once therapeutic for 2 days. (5) End stage renal failure on dialysis Is this a current diagnosis for this admission?: Yes Plan: Continue dialysis as per nephrology (6) Pulmonary hypertension Is this a current diagnosis for this admission?: Yes Plan: RVSP on echo >60mmHg and 2/4 diastolic dysfunction with normal EF. Unfortunately, patient's prognosis is poor given this and her significant func tional debilitation. She would benefit from palliative care. (7) Malnutrition Qualifiers: Malnutrition type: protein-calorie malnutrition Protein-calorie malnutrition severity: severe Qualified Code(s): E43 - Unspecified severe protein-calorie malnutrition Is this a current diagnosis for this admission?: Yes Plan: Severe protein calorie malnutrition. Patient encouraged on oral intake. We will continue to monitor clinical panel. Continue Megace and nepro nutrition drink TID as recommended by dietary. (8) Anemia in chronic kidney disease Qualifiers: Chronic kidney disease stage: on chronic dialysis Qualified Code(s): N18.6 - End stage renal disease; D63.1 - Anemia in chronic kidney disease; Z99.2 - Dependence on renal dialysis Is this a current diagnosis for this admission?: Yes Plan: With acute exacerbation compounded by prolonged hospitalization and frequent phlebotomies. Planned for transfusion during dialysis today. Check CBC in the morning. - Time Time Spent with patient: 15-24 minutes
[2019-08-30] MEDS: METHYLPREDNISOLONE INJ 40 MG/1 ML SDV IV SCH (17:32)
[2019-08-30] MEDS: ATORVASTATIN CALCIUM 20 MG TABLET PO SCH (22:04)
[2019-08-30] MEDS: TRAZODONE HCL 50 MG TABLET PO SCH (22:04)
[2019-08-30] MEDS: WARFARIN SODIUM 5 MG TABLET PO SCH (22:04)
[2019-08-30] MEDS: NORMAL SALINE INJ/PF 0.9% 10 ML SDV IV PRN (22:16)
[2019-08-31] MEDS: NORMAL SALINE INJ/PF 0.9% 10 ML SDV IV PRN ×2 (05:35→22:06)
[2019-08-31] MEDS: LIOTHYRONINE SODIUM 5 MCG TABLET PO SCH (05:36)
[2019-08-31] MEDS: LEVOTHYROXINE SODIUM 0.075 MG TABLET PO SCH (05:36)
[2019-08-31] MEDS: LIDOCAINE 2% VISCOUS SOLN 15 ML UDCUP PO PRN (05:38)
[2019-08-31 07:09] LABS: INTERNATIONAL RATION (INR) 2.32; PROTHROMBIN TIME 25.9 SEC (11.4-15.4)
[2019-08-31 07:11] LABS: PARTIAL THROMBOPLASTIN TIME 122.9 SEC (23.5-35.8)
[2019-08-31 07:15] LABS: ABSOLUTE EOSINOPHILS # (AUTO) 0.1 10^3/uL (0.0-0.6); ABSOLUTE LYMPHOCYTES (AUTO) 0.3 10^3/uL (0.5-4.7); ABSOLUTE MONOCYTES (AUTO) 0.3 10^3/uL (0.1-1.4); ABSOLUTE NEUT (AUTO) 4.5 10^3/uL (1.7-8.2); BASOPHILS % (AUTO) 0.7 % (0-2); EOSINOPHILS % (AUTO) 1.8 % (0-6); HEMATOCRIT 28.1 % (36.0-47.0); LYMPHOCYTES % (AUTO) 5.2 % (13-45); MEAN CORPUSCULAR HEMOGLOBIN 31.5 pg (27.0-33.4); MEAN CORPUSCULAR HGB CONC 34.1 g/dL (32.0-36.0); PLATELET COUNT 142 10^3/uL (150-450); RED BLOOD COUNT 3.04 10^6/uL (3.72-5.28); RED CELL DISTRIBUTION WIDTH 18.1 % (11.5-14.0); SEGMENTED NEUTROPHILS % (AUTO) 87.3 % (42-78); TOTAL CELLS COUNTED % (AUTO) 100 %; WHITE BLOOD COUNT 5.1 10^3/uL (4.0-10.5)
[2019-08-31 07:16] LABS: HEMOGLOBIN 9.6 g/dL (12.0-15.5); MEAN CORPUSCULAR VOLUME 93 fl (80-97)
[2019-08-31] MEDS: BUDESONIDE NEB 0.25 MG/2 ML AMPUL NEB SCH ×2 (08:52→20:57)
[2019-08-31] MEDS: ASPIRIN 81 MG TABLET, ENT COATED PO SCH (10:37)
[2019-08-31] MEDS: VITAMIN B COMPLEX TABLET PO SCH (10:37)
[2019-08-31] MEDS: DIGOXIN 0.125 MG TABLET PO SCH (10:37)
[2019-08-31] MEDS: MEGESTROL ACETATE 20 MG TABLET PO SCH (10:37)
[2019-08-31] MEDS: CHOLECALCIFEROL (D3) 1,000 UNIT (25 MCG) TABLET PO SCH (10:38)
[2019-08-31] MEDS: DOCUSATE SODIUM 100 MG CAPSULE PO SCH ×2 (10:38→17:50)
[2019-08-31] MEDS: GENTAMICIN SULFATE 0.1% CREAM 15 GM TP SCH (14:35)
--- NOTE | 2019-08-31 16:32 | PDOC PROGRESS REPORT ---
Subjective Progress Note for:: 08/31/19 Subjective:: Patient states that her breathing is not optimal but better than before. States that she is attempting to eat more. Denies any chest pain at this time. Still very weak and unable to do much ambulation. Reason For Visit: ACUTE ON CHRONIC RESPIRATORY FAILURE,ESRD Physical Exam Vital Signs: Temp Pulse Resp BP Pulse Ox 98.6 F 96 18 101/55 L 99 08/31/19 07:43 08/31/19 14:00 08/31/19 08:52 08/31/19 07:43 08/31/19 12:00 Pulse Oximeter Continuous Start: 08/27/19 11:14 Freq: RTQ4 Status: Active Protocol: Document 08/31/19 12:00 [facility] (Rec: 08/31/19 13:07 [facility] [email or web address]) Pulse Oximetry Assessment Oxygen Saturation (92-100) 99 Oxygen Flow Rate (L/min) 3 Oxygen Delivery Method Simple Mask Equipment Usage Equipment in Use Continuous SpO2 Machine # 6 Intake & Output 08/30/19 08/31/19 09/01/19 06:59 06:59 06:59 Intake Total 270 1144 240 Output Total 210 1820 Balance 60 -676 240 Weight 90.8 kg 85.5 kg General appearance: PRESENT: no acute distress, cooperative Neck exam: ABSENT: JVD Respiratory exam: PRESENT: rales, symmetrical, tachypnea, unlabored. ABSENT: wheezes Cardiovascular exam: PRESENT: RRR, +S1, +S2. ABSENT: tachycardia GI/Abdominal exam: PRESENT: soft. ABSENT: rebound, rigid, tenderness Skin exam: PRESENT: other - Ecchymosis Results Laboratory Results: 08/31/19 06:41 08/30/19 06:15 08/29/19 08/31/19 16:15 06:41 WBC 5.1 RBC 3.04 L Hgb 9.6 L D Hct 28.1 L MCV 93 D MCH 31.5 MCHC 34.1 RDW 18.1 H Plt Count 142 L Seg Neutrophils % 87.3 H Blood Type A POSITIVE Antibody Screen NEGATIVE 08/08/19 08/08/19 08/15/19 12:15 18:45 06:34 Troponin I 0.040 NT-Pro-B Natriuret Pep 52126 H 18116 H Impressions: Chest/Abdomen CTA 08/15/19 16:14 IMPRESSION: 1. Study degraded by motion artifact. No definite evidence for pulmonary emboli. 2. Cardiomegaly. Coronary artery calcifications. 3. Emphysema. Small bilateral pleural effusions. Bilateral airspace opacities, may be secondary to multifocal pneumonia; follow-up CT after treatment recommended to ensure complete resolution and exclude underlying neoplasm. 4. Mild mediastinal and right hilar adenopathy. 5. Small abdominal ascites. Mildly dilated common bile duct status post cholecystectomy. Head CT 08/20/19 00:00 IMPRESSION: CHRONIC MICROVASCULAR ISCHEMIA. NO ACUTE IMAGING FINDINGS IN THE BR AIN. EVIDENCE OF ACUTE STROKE: NO. KUB X-Ray 08/21/19 13:18 IMPRESSION: FEEDING TUBE DESCRIBED. Chest X-Ray 08/23/19 08:00 IMPRESSION: Tubes and lines as above. Otherwise unchanged radiographic appearance of the chest. Brain MRI with MRA 08/24/19 00:00 IMPRESSION: NORMAL MRA OF THE [place]. 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 No acute findings EVIDENCE OF ACUTE STROKE: NO. Neck MRA 08/24/19 00:00 IMPRESSION: NO SIGNIFICANT STENOSIS OF THE CAROTID BIFURCATIONS. VERTEBRAL ARTERY SUBOPTIMALLY VISUALIZED ON TODAY'S MRA EXAM. LEFT VERTEBRAL ARTERY IS DOMINANT. Assessment and Plan - Diagnosis (1) Acute and chronic respiratory failure Qualifiers: Respiratory failure complication: hypoxia Qualified Code(s): J96.21 - Acute and chronic respiratory failure with hypoxia Is this a current diagnosis for this admission?: Yes Plan: Hypoxic respiratory failure initially thought to be secondary to COPD, volume overload from ESRD and complicated by pneumonia. Now that volume overload, COPD exacerbation and pneumonia have resolved, will attempt to wean off oxygen. May still has some chronic hypoxia from underlying COPD. (2) Stroke Qualifiers: CVA mechanism: thrombosis Precerebral and cerebral artery: unspecified cerebral artery Qualified Code(s): I63.30 - Cerebral infarction due to thrombosis of unspecified cerebral artery Is this a current diagnosis for this admission?: Yes Plan: MRI of the brain however shows no acute infarcts but does show several old infarcts. Will need extensive physical and Occupational Therapy (3) COPD exacerbation Is this a current diagnosis for this admission?: Yes Plan: Nebs as needed. Acute exacerbation seems to be over. Plan to discontinue steroids tomorrow. (4) Persistent atrial fibrillation Is this a current diagnosis for this admission?: Yes Plan: Continue digoxin, check level this evening INR has been therapeutic now for 2 days. Heparin drip discontinued. Continue warfarin 5 mg daily. Check INR in the morning. (5) End stage renal failure on dialysis Is this a current diagnosis for this admission?: Yes Plan: Continue dialysis as per nephrology (6) Pulmonary hypertension Is this a current diagnosis for this admission?: Yes Plan: RVSP on echo >60mmHg and 2/4 diastolic dysfunction with normal EF. Unfortunately, patient's prognosis is poor given this and her significant functional debilitation. She would benefit from palliative care. (7) Malnutrition Qualifiers: Malnutrition type: protein-calorie malnutrition Protein-calorie malnutrition severity: severe Qualified Code(s): E43 - Unspecified severe protein-calorie malnutrition Is this a current diagnosis for this admission?: Yes Plan: Severe protein calorie malnutrition. Patient encouraged on oral intake. We will continue to monitor clinical panel. Continue Megace and nepro nutrition drink TID as recommended by dietary. (8) Anemia in chronic kidney disease Qualifiers: Chronic kidney disease stage: on chronic dialysis Qualified Code(s): N18.6 - End stage renal disease; D63.1 - Anemia in chronic kidney disease; Z99.2 - Dependence on renal dialysis Is this a current diagnosis for this admission?: Yes Plan: Hemoglobin improved. Received blood transfusion at dialysis on 08/30/2019. Will continue to benefit from EPO. (9) Critical illness myopathy Is this a current diagnosis for this admission?: Yes Plan: Patient is very debilitated from critical illness as well as prior strokes. Will benefit from extensive physical therapy to improve functional status. Discharge planning consulted for SNF - Plan Summary Summary: Discussed plan with patient's son and brother today - Time Time Spent with patient: 15-24 minutes
[2019-08-31] MEDS: METHYLPREDNISOLONE INJ 40 MG/1 ML SDV IV SCH (17:58)
--- NOTE | 2019-08-31 19:38 | PDOC PROGRESS REPORT ---
Subjective Progress Note for:: 08/30/19 Subjective:: I am seeing the patient during dialysis this afternoon. Patient has had a complicated rough course in the hospital for the last 2 weeks. Currently the patient is just on nasal cannula. She is awake and is responding to questions appropriately. However she does not verbalize much. She appears to be very weak and deconditioned. She states that she is not feeling very well. There is an obvious drooling when she speaks. Her speech is also not very clear. She denies any shortness of breath. Today I asked her if she wants to continue with hemodialysis and she indicated that she does. She had an episode of TIA last week and is currently on anticoagulation with warfarin. Her blood pressure remains to be on the low side taken on her arm. Her blood pressure on her right leg seems to be better. We are currently monitoring her blood pressure on both sides during dialysis. Reason For Visit: ACUTE ON CHRONIC RESPIRATORY FAILURE,ESRD Physical Exam Vital Signs: Temp Pulse Resp BP Pulse Ox 97.5 F 77 22 H 100/50 L 100 08/30/19 08:12 08/30/19 14:00 08/30/19 09:00 08/30/19 08:12 08/30/19 15:59 Pulse Oximeter Continuous Start: 08/27/19 11:14 Freq: RTQ4 Status: Active Protocol: Document 08/30/19 15:59 [facility] (Rec: 08/30/19 15:59 [facility] [email or web address]) Pulse Oximetry Assessment Oxygen Saturation (92-100) 100 Oxygen Flow Rate (L/min) 3 Oxygen Delivery Method Nasal Cannula Fraction of Inspired Oxygen (FIO2) 32 Equipment Usage Equipment in Use Continuous SpO2 Machine # 6 Intake & Output 08/29/19 08/30/19 08/31/19 06:59 06:59 06:59 Intake Total 0205 940 5376 Output Total 195 210 100 Balance 1173 60 1019 Weight 87.5 kg 90.8 kg 90.8 kg Vitals during dialysis: Blood pressure in the right arm 105/85, blood pressure in the right leg 148/45, heart rate of 91, blood flow rate of 400 mL/min and dialysate flow rate of 800 mL/min. She is on 3 L of nasal cannula with oxygen saturation of 100%. Exam: General appearance: PRESENT: no acute distress, cooperative, appears ill and weak Head exam: PRESENT: atraumatic, normocephalic Eye exam: PRESENT: conjunctiva pale, PERRLA. ABSENT: scleral icterus Neck exam: ABSENT: JVD Respiratory exam: PRESENT: Diminished breath sounds. ABSENT: crackles, rales, rhonchi, unlabored, wheezes Cardiovascular exam: PRESENT: Regular rate rhythm -+S1, +S2. ABSENT: diastolic murmur, systolic murmur GI/Abdominal exam: PRESENT: normal bowel sounds, soft. ABSENT: guarding, mass, tenderness Extremities exam: Significant bilateral upper extremities edema as well as grade 1 bilateral lower extremity pitting edema Neurological exam: PRESENT: alert, awake, answering questions appropriately which is not very clear yet. Skin exam: PRESENT: dry, warm, Cardiovascular exam: PRESENT: +S1, +S2 GI/Abdominal exam: PRESENT: normal bowel sounds, soft, tenderness - She is tender around the exit site of the recently placed PD catheter. However there is no signs of redness or exit site infection.. ABSENT: distended, guarding, organomegaly, rebound Results Laboratory Results: 08/30/19 06:15 08/30/19 06:15 08/29/19 08/30/19 08/30/19 16:15 06:15 06:15 WBC 6.1 RBC 2.21 L Hgb 7.1 L Hct 21.7 L MCV 98 H MCH 32.1 MCHC 32.7 RDW 20.6 H Plt Count 170 Seg Neutrophils % Not Reportable Sodium 136.5 L Potassium 4.5 Chloride 102 Carbon Dioxide 27 Anion Gap 8 BUN 92 H Creatinine 3.86 H Est GFR ( Amer) 14 L Glucose 74 L Calcium 7.7 L Blood Type A POSITIVE Antibody Screen NEGATIVE 08/08/19 08/08/19 08/15/19 12:15 18:45 06:34 Troponin I 0.040 NT-Pro-B Natriuret Pep 36813 H 77402 H Impressions: Chest/Abdomen CTA 08/15/19 16:14 IMPRESSION: 1. Study degraded by motion artifact. No definite evidence for pulmonary emboli. 2. Cardiomegaly. Coronary artery calcifications. 3. Emphysema. Small bilateral pleural effusions. Bilateral airspace opacities, may be secondary to multifocal pneumonia; follow-up CT after treatment recommended to ensure complete resolution and exclude underlying neoplasm. 4. Mild mediastinal and right hilar adenopathy. 5. Small abdominal ascites. Mildly dilated common bile duct status post cholecystectomy. Head CT 08/20/19 00:00 IMPRESSION: CHRONIC MICROVASCULAR ISCHEMIA. NO ACUTE IMAGING FINDINGS IN THE BRAIN. EVIDENCE OF ACUTE STROKE: NO. KUB X-Ray 08/21/19 13:18 IMPRESSION: FEEDING TUBE DESCRIBED. Chest X-Ray 08/23/19 08:00 IMPRESSION: Tubes and lines as above. Otherwise unchanged radiographic appearance of the chest. Brain MRI with MRA 08/24/19 00:00 IMPRESSION: NORMAL MRA OF THE [place]. 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 No acute findings EVIDENCE OF ACUTE STROKE: NO. Neck MRA 08/24/19 00:00 IMPRESSION: NO SIGNIFICANT STENOSIS OF THE CAROTID BIFURCATIONS. VERTEBRAL ARTERY SUBOPTIMALLY VISUALIZED ON TODAY'S MRA EXAM. LEFT VERTEBRAL ARTERY IS DOMINANT. Assessment & Plan - Diagnosis (1) End stage renal failure on dialysis Is this a current diagnosis for this admission?: Yes Plan: We will do dialysis today for 3 hours, using the patient's left upper arm AV fistula, with 3 potassium bath, blood flow rate of 400 mL per minute, dialysate flow rate of 800 mL per minute, ultrafiltration 1.5 L to 2 L as tolerated, no heparin and Procrit with 20,000 units during dialysis intravenously. Patient is being monitored very closely during dialysis treatment. (2) TIA (transient ischemic attack) Is this a current diagnosis for this admission?: Yes Plan: Patient had an episode of expressive aphasia last week. She was started on anticoagulation and is currently on warfarin. Patient is now able to talk and answer questions. (3) Anemia in chronic kidney disease Qualifiers: Chronic kidney disease stage: on chronic dialysis Qualified Code(s): N18.6 - End stage renal disease; D63.1 - Anemia in chronic kidney disease; Z99.2 - Dependence on renal dialysis Is this a current diagnosis for this admission?: Yes Plan: Patient is going to be transfused 1 unit of packed RBC during dialysis today. She will also receive Procrit/Retacrit as above. (4) Acute hypoxemic respiratory failure Is this a current diagnosis for this admission?: Yes Plan: This was initially due to bilateral pneumonia, COPD with some stable interstitial edema. Currently resolved. (5) HCAP (healthcare-associated pneumonia) Is this a current diagnosis for this admission?: Yes Plan: Patient was treated with antibiotics. (6) Chronic obstructive pulmonary disease with acute exacerbation Is this a current diagnosis for this admission?: Yes Plan: Currently on IV methylprednisolone. Improved. (7) Hypotension Qualifiers: Hypotension type: unspecified hypotension type Qualified Code(s): I95.9 - Hypotension, unspecified Is this a current diagnosis for this admission?: Yes Plan: It is episodic. Needs careful monitoring during dialysis treatment. (8) Subclavian steal syndrome Is this a current diagnosis for this admission?: Yes (9) Pulmonary hypertension Is this a current diagnosis for this admission?: Yes (10) Atrial fibrillation Qualifiers: Atrial fibrillation type: longstanding persistent Qualified Code(s): I48.11 - Longstanding persistent atrial fibrillation Is this a current diagnosis for this admission?: Yes (11) Physical deconditioning Is this a current diagnosis for this admission?: Yes Plan: Due to multiple medical issues and comorbidities and prolonged hospitalization patient would benefit from acute rehabilitation following discharge from the hospital this time. - Notes Notes: Discussed with Dr. Garcia. - Time Time with patient: 15-25 minutes
[2019-08-31] MEDS: ATORVASTATIN CALCIUM 20 MG TABLET PO SCH (22:05)
[2019-08-31] MEDS: TRAZODONE HCL 50 MG TABLET PO SCH (22:05)
[2019-08-31] MEDS: WARFARIN SODIUM 5 MG TABLET PO SCH (22:05)
[2019-09-01] MEDS ORDERED: EPOETIN ALFA-EPBX 10,000 UNIT in SYRINGE, DISPOSABLE, 1 EACH IV PRN (05:00)
[2019-09-01] MEDS ORDERED: NORMAL SALINE 1000 ML 1,000 ML IV PRN (05:00)
[2019-09-01] MEDS ORDERED: EPOETIN ALFA-EPBX 20,000 UNIT in SYRINGE, DISPOSABLE, 1 EACH IV PRN (05:00)
[2019-09-01] MEDS ORDERED: ALBUMIN HUMAN 12.5 GM/50 ML RTUINJ IV SCH (06:00)
[2019-09-01] MEDS: LEVOTHYROXINE SODIUM 0.075 MG TABLET PO SCH (06:14)
[2019-09-01] MEDS: NORMAL SALINE INJ/PF 0.9% 10 ML SDV IV PRN (06:14)
[2019-09-01] MEDS: LIOTHYRONINE SODIUM 5 MCG TABLET PO SCH (06:14)
[2019-09-01 07:11] LABS: INTERNATIONAL RATION (INR) 2.17; PROTHROMBIN TIME 24.6 SEC (11.4-15.4)
[2019-09-01 07:15] LABS: ABSOLUTE LYMPHOCYTES (AUTO) 0.3 10^3/uL (0.5-4.7); ABSOLUTE MONOCYTES (AUTO) 0.2 10^3/uL (0.1-1.4); ABSOLUTE NEUT (AUTO) 3.9 10^3/uL (1.7-8.2); BASOPHILS % (AUTO) 0.3 % (0-2); EOSINOPHILS % (AUTO) 0.1 % (0-6); HEMATOCRIT 29.4 % (36.0-47.0); LYMPHOCYTES % (AUTO) 7.1 % (13-45); MEAN CORPUSCULAR HEMOGLOBIN 31.7 pg (27.0-33.4); MEAN CORPUSCULAR HGB CONC 34.1 g/dL (32.0-36.0); MEAN CORPUSCULAR VOLUME 93 fl (80-97); MONOCYTES % (AUTO) 5.2 % (3-13); PLATELET COUNT 146 10^3/uL (150-450); RED BLOOD COUNT 3.16 10^6/uL (3.72-5.28); RED CELL DISTRIBUTION WIDTH 18.4 % (11.5-14.0); SEGMENTED NEUTROPHILS % (AUTO) 87.3 % (42-78); TOTAL CELLS COUNTED % (AUTO) 100 %; WHITE BLOOD COUNT 4.5 10^3/uL (4.0-10.5)
[2019-09-01 07:25] LABS: ALBUMIN 2.3 g/dL (3.5-5.0); ALKALINE PHOSPHATASE 51 U/L (38-126); ANION GAP 7 (5-19); ASPARTATE AMINO TRANSFERASE 25 U/L (14-36); BILIRUBIN,DIRECT 0.1 mg/dL (0.0-0.4); BILIRUBIN,TOTAL 0.7 mg/dL (0.2-1.3); BLOOD UREA NITROGEN 68 mg/dL (7-20); CALCIUM 8.1 mg/dL (8.4-10.2); CARBON DIOXIDE 29 mmol/L (22-30); CHLORIDE 100 mmol/L (98-107); GLUCOSE 83 mg/dL (75-110); PHOSPHORUS 5.2 mg/dL (2.5-4.5); POTASSIUM 4.1 mmol/L (3.6-5.0); TOTAL PROTEIN 4.6 g/dL (6.3-8.2)
[2019-09-01] MEDS: ALBUMIN HUMAN 12.5 GM/50 ML RTUINJ IV PRN ×2 (08:46→09:06)
[2019-09-01] MEDS: BUDESONIDE NEB 0.25 MG/2 ML AMPUL NEB SCH ×2 (08:57→20:42)
--- NOTE | 2019-09-01 09:53 | PDOC PROGRESS REPORT ---
Subjective Progress Note for:: 09/01/19 Subjective:: I am seeing the patient during dialysis this morning. She was refusing to have blood pressure taken on her right leg because it hurts so we are just checking her blood pressure on her arm. So far she is tolerating dialysis with minimal ultrafiltration. I am also giving her IV albumin to help with ultrafiltration and blood pressure today. Patient is awake and answering questions appropriately today. She did not verbalize any other complaints. Reason For Visit: ACUTE ON CHRONIC RESPIRATORY FAILURE,ESRD Physical Exam Vital Signs: Temp Pulse Resp BP Pulse Ox 97.4 F 83 20 116/62 100 09/01/19 04:35 09/01/19 06:49 09/01/19 09:00 09/01/19 04:35 09/01/19 05:05 Pulse Oximeter Continuous Start: 08/27/19 11:14 Freq: RTQ4 Status: Active Protocol: Document 09/01/19 05:05 [facility] (Rec: 09/01/19 05:05 [facility] [id number]) Pulse Oximetry Assessment Oxygen Saturation (92-100) 100 Oxygen Flow Rate (L/min) 3 Oxygen Delivery Method Nasal Cannula Fraction of Inspired Oxygen (FIO2) 32 Equipment Usage Equipment in Use Continuous Pulse Oximeter 24 Hour Charge Charge Now Continuous SpO2 Machine # 6 Intake & Output 08/31/19 09/01/19 09/02/19 06:59 06:59 06:59 Intake Total 1144 560 16 Output Total 1820 285 Balance -676 275 16 Weight 85.5 kg 86.3 kg Vitals during dialysis: Blood pressure 114/69, heart rate of 60, blood flow rate of 400 mL/min and dialysate flow rate of 800 mL/min. Exam: General appearance: PRESENT: no acute distress, cooperative, well-developed, well-nourished Head exam: PRESENT: atraumatic, normocephalic Eye exam: PRESENT: conjunctiva pale, PERRLA. ABSENT: scleral icterus Neck exam: ABSENT: JVD Respiratory exam: PRESENT: Diminished breath sounds. ABSENT: crackles, rales, rhonchi, unlabored, wheezes Cardiovascular exam: PRESENT: Regular rate rhythm -+S1, +S2. ABSENT: diastolic murmur, systolic murmur GI/Abdominal exam: PRESENT: normal bowel sounds, soft. ABSENT: guarding, mass, tenderness Extremities exam: Bilateral upper extremities edema seems to be a little improved compared to 2 days ago, grade 2 bilateral lower extremity edema Neurological exam: PRESENT: alert, awake, responding appropriately to questions. Skin exam: PRESENT: dry, warm, Cardiovascular exam: PRESENT: +S1, +S2 GI/Abdominal exam: PRESENT: normal bowel sounds, soft, tenderness - She is tender around the exit site of the recently placed PD catheter. However there is no signs of redness or exit site infection.. ABSENT: distended, guarding, organomegaly, rebound Results Laboratory Results: 09/01/19 06:22 09/01/19 06:22 09/01/19 09/01/19 06:22 06:22 WBC 4.5 RBC 3.16 L Hgb 10.0 L Hct 29.4 L MCV 93 MCH 31.7 MCHC 34.1 RDW 18.4 H Plt Count 146 L Seg Neutrophils % 87.3 H Sodium 136.3 L Potassium 4.1 Chloride 100 Carbon Dioxide 29 Anion Gap 7 BUN 68 H Creatinine 3.25 H Est GFR ( Amer) 17 L Glucose 83 Calcium 8.1 L Phosphorus 5.2 H Magnesium 2.0 Total Bilirubin 0.7 AST 25 Alkaline Phosphatase 51 Total Protein 4.6 L Albumin 2.3 L 08/08/19 08/08/19 08/15/19 12:15 18:45 06:34 Troponin I 0.040 NT-Pro-B Natriuret Pep 97813 H 56338 H Impressions: Chest/Abdomen CTA 08/15/19 16:14 IMPRESSION: 1. Study degraded by motion artifact. No definite evidence for pulmonary emboli. 2. Cardiomegaly. Coronary artery calcifications. 3. Emphysema. Small bilateral pleural effusions. Bilateral airspace opacities, may be secondary to multifocal pneumonia; follow-up CT after treatment gilbert mmended to ensure complete resolution and exclude underlying neoplasm. 4. Mild mediastinal and right hilar adenopathy. 5. Small abdominal ascites. Mildly dilated common bile duct status post cholecy stectomy. Head CT 08/20/19 00:00 IMPRESSION: CHRONIC MICROVASCULAR ISCHEMIA. NO ACUTE IMAGING FINDINGS IN THE BRAIN. EVIDENCE OF ACUTE STROKE: NO. KUB X-Ray 08/21/19 13:18 IMPRESSION: FEEDING TUBE DESCRIBED. Chest X-Ray 08/23/19 08:00 IMPRESSION: Tubes and lines as above. Otherwise unchanged radiographic appearance of the chest. Brain MRI with MRA 08/24/19 00:00 IMPRESSION: NORMAL MRA OF THE [place]. 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 No acute findings EVIDENCE OF ACUTE STROKE: NO. Neck MRA 08/24/19 00:00 IMPRESSION: NO SIGNIFICANT STENOSIS OF THE CAROTID BIFURCATIONS. VERTEBRAL ARTERY SUBOPTIMALLY VISUALIZED ON TODAY'S MRA EXAM. LEFT VERTEBRAL ARTERY IS DOMINANT. Assessment & Plan - Diagnosis (1) End stage renal failure on dialysis Is this a current diagnosis for this admission?: Yes Plan: We will do dialysis today for 3 hours, using the patient's AV fistula on the left upper arm, with 2 potassium bath, blood flow rate of 400 mL per minute, dialysate flow rate of 800 mL per minute, ultrafiltration 1 to 2 L as tolerated, no heparin and Procrit with 10,000 units during dialysis intravenously. Patient is being given 25 g of IV albumin during dialysis treatment to help with ultrafiltration and hypotension. Patient is monitored closely during dialysis treatment today. (2) TIA (transient ischemic attack) Is this a current diagnosis for this admission?: Yes Plan: Patient had an episode of expressive aphasia last week. She was started on anticoagulation and is currently on warfarin. Patient is now able to talk and answer questions. (3) Anemia in chronic kidney disease Qualifiers: Chronic kidney disease stage: on chronic dialysis Qualified Code(s): N18.6 - End stage renal disease; D63.1 - Anemia in chronic kidney disease; Z99.2 - Dependence on renal dialysis Is this a current diagnosis for this admission?: Yes Plan: Patient is was transfused 1 unit of packed RBC during dialysis on Friday, August 30. She will also receive Procrit/Retacrit as above. (4) Acute hypoxemic respiratory failure Is this a current diagnosis for this admission?: Yes Plan: This was initially due to bilateral pneumonia, COPD with some stable interstitial edema. Currently resolved. (5) HCAP (healthcare-associated pneumonia) Is this a current diagnosis for this admission?: Yes Plan: Patient was treated with antibiotics. (6) Chronic obstructive pulmonary disease with acute exacerbation Is this a current diagnosis for this admission?: Yes Plan: Currently on IV methylprednisolone. Improved. (7) Hypotension Qualifiers: Hypotension type: unspecified hypotension type Qualified Code(s): I95.9 - Hypotension, unspecified Is this a current diagnosis for this admission?: Yes Plan: It is episodic. Needs careful monitoring during dialysis treatment. (8) Subclavian steal syndrome Is this a current diagnosis for this admission?: Yes (9) Pulmonary hypertension Is this a current diagnosis for this admission?: Yes (10) Atrial fibrillation Qualifiers: Atrial fibrillation type: longstanding persistent Qualified Code(s): I48.11 - Longstanding persistent atrial fibrillation Is this a current diagnosis for this admission?: Yes Plan: On warfarin. (11) Physical deconditioning Is this a current diagnosis for this admission?: Yes Plan: Due to multiple medical issues and comorbidities and prolonged hospitalization patient would benefit from acute rehabilitation following discharge from the hospital this time. - Time Time with patient: 15-25 minutes
[2019-09-01] MEDS ORDERED: DILTIAZEM HCL 120 MG CAP.SR.24H PO SCH (10:00)
[2019-09-01] MEDS ORDERED: ASPIRIN 81 MG TABLET, CHEWABLE ONE (10:47)
[2019-09-01] MEDS ORDERED: ASPIRIN 81 MG TABLET, CHEWABLE PO ONE (10:49)
[2019-09-01] MEDS ORDERED: NORMAL SALINE 1000 ML 500 ML IV ONE ×2 (10:49→11:45)
[2019-09-01] MEDS: MEGESTROL ACETATE 20 MG TABLET PO SCH (11:13)
[2019-09-01] MEDS: ASPIRIN 81 MG TABLET, ENT COATED PO SCH (11:13)
[2019-09-01] MEDS: VITAMIN B COMPLEX TABLET PO SCH (11:14)
[2019-09-01] MEDS: CHOLECALCIFEROL (D3) 1,000 UNIT (25 MCG) TABLET PO SCH (11:14)
[2019-09-01] MEDS: DOCUSATE SODIUM 100 MG CAPSULE PO SCH ×2 (11:14→17:02)
[2019-09-01] MEDS: GENTAMICIN SULFATE 0.1% CREAM 15 GM TP SCH (11:21)
[2019-09-01 12:52] LABS: VENOUS BLOOD BASE EXCESS 5.7 mmol/L; VENOUS BLOOD HCO3 29.3 mmol/L (20-32); VENOUS BLOOD PCO2 38.5 mmHg (35-63); VENOUS BLOOD PH 7.5 (7.30-7.42)
--- NOTE | 2019-09-01 13:34 | PDOC CONSULTATION ---
Consultation Consult Date: 09/01/19 Attending physician:: LASHAE FREY Provider Consulted: BELKYS KESSLER Consult reason:: Abnormal EKG History of Present Illness Admission Date/PCP: 08/08/19 17:33 GIANNA BOURGEOIS MD Patient complains of: No complaints History of Present Illness: EZRA SUERO is a 79 year old female With the following active problems 1. End-stage renal disease on hemodialysis 2. Congestive heart failure 3. Chronic atrial fibrillation 4. Systemic anticoagulation-warfarin 5. COPD Patient with protracted hospital stay with multiple medical problems including end-stage renal disease on hemodialysis congestive heart failure and respiratory distress was being managed in the intensive care unit. Patient has been receiving hemodialysis in the hemodialysis unit as well. She was treated for pneumonia. EKG done today at dialysis was abnormal with profound ST depression. Cardiology was consulted. Patient is unable to relate any history at the moment. History is mostly per chart. Patient does not endorse any chest pain. EKG available shows findings suspicious for digoxin toxicity and was confirmed on laboratory testing with elevated digoxin level. Patient had been receiving digoxin in the intensive care unit to control tachycardia. Past Medical History Cardiac Medical History: Reports: Atrial Fibrillation - Paroxysmal, anticoagulation discontinued due to GI bleed episodes, Coronary Artery Disease, Myocardial Infarction - [place] X1, STENT PLACED 2000, Hyperlipidema, Hypertension - Pt has hypotension at this time Denies: Congestive Heart Failure Pulmonary Medical History: Reports: Chronic Obstructive Pulmonary Disease (COPD) - ON 3 L O2 NC CONTINUOUS, Sleep Apnea Neurological Medical History: Denies: Seizures Endocrine Medical History: Reports: Hypothyroidism Denies: Diabetes Mellitus Type 2 Renal/ Medical History: Reports: End Stage Renal Disease Malignancy Medical History: Reports: Breast Cancer - Status post mastectomy GI Medical History: Musculoskeltal Medical History: Psychiatric Medical History: Denies: Depression Hematology: Reports: Anemia - Secondary to end-stage kidney disease Denies: Sickle Cell Disease Past Surgical History Past Surgical History: Reports: Appendectomy, Cardiac Catheterization, Cholecystectomy, Coronary Stent - August 2014, Mastectomy, Tubal Ligation, Vascular Surgery - PermCath placement for dialysis with subsequent AVF for dialysis, Other - AV fistula formation for hemodialysis Denies: Amputation Social History Lives with: Family Smoking Status: Former Smoker Cigarettes Packs Per Day: 1 Electronic Cigarette use?: No Number of Years Smokin Frequency of Alcohol Use: None Hx Recreational Drug Use: No Drugs: None Hx Prescription Drug Abuse: No - Advance Directive Resuscitation Status: Full Code Family History Family History: CAD, Other Parental Family History Reviewed: No - Unable to obtain due to noninvasive respiration Children Family History Reviewed: NA Sibling(s) Family History Reviewed.: NA Medication/Allergy Home Medications: Furosemide [Lasix 20 mg Tablet] 20 mg PO SUTUTHFRSA@0800 06/09/19 Liothyronine Sodium [Cytomel] 5 mcg PO Q6AM 06/09/19 Metoprolol Succinate [Toprol Xl 50 mg Tab.sr] 50 mg PO QPM 06/09/19 Nitroglycerin [Nitrostat 0.4 mg (1/150 Gr) Tabs 25/Bottle] 1 tab SL Q5MP PRN 06/09/19 Omeprazole 40 mg PO QAM 06/09/19 Rosuvastatin Calcium [Crestor 10 mg Tablet] 10 mg PO QPM 06/09/19 Sucroferric Oxyhydroxide [Velphoro] 500 mg PO AC 06/09/19 Albuterol Sulfate [Albuterol Sulfate Hfa] 2 puff IH Q3HP PRN 08/09/19 Aspirin [Ecotrin 81 mg EC Tablet] 81 mg PO DAILY 08/09/19 Cholecalciferol (Vitamin D3) [Vitamin D3] 1,000 unit PO DAILY 08/09/19 Fluticasone/Salmeterol [Advair 250-50 Diskus 14 Dose/Diskus] 1 inh IH Q12 0 08/09/19 Levothyroxine Sodium [Synthroid 0.088 mg Tablet] 0.088 mg PO Q6AM 08/09/19 Methocarbamol [Robaxin 750 mg Tablet] 750 mg PO DAILY 08/09/19 Tiotropium [place] [Spiriva Handihaler 5 Cap/Kit (18 Mcg/Cap)] 1 cap IH DAILY 08/09/19 Allergies/Adverse Reactions: Sulfa (Sulfonamide Antibiotics) Allergy (Severe, Verified 03/29/19 09:38) unsure pregabalin [From Lyrica] Adverse Reaction (Severe, Verified 03/29/19 09:38) irritable,weight gain Review of Systems ROS unobtainable: Other - Patient is presently on noninvasive respiration. Limited review of systems. Constitutional: PRESENT: as per HPI Eyes: PRESENT: as per HPI Respiratory: PRESENT: cough Physical Exam Vital Signs: Temp Pulse Resp BP Pulse Ox 97.4 F 83 22 H 116/62 98 09/01/19 04:35 09/01/19 06:49 09/01/19 11:19 09/01/19 04:35 09/01/19 11:19 Pulse Oximeter Continuous Start: 08/27/19 11:14 Freq: RTQ4 Status: Active Protocol: Document 09/01/19 11:19 [facility] (Rec: 09/01/19 11:21 [facility] [id number]) Pulse Oximetry Assessment Oxygen Saturation (92-100) 98 Oxygen Delivery Method CPAP Fraction of Inspired Oxygen (FIO2) 40 Equipment Usage Equipment in Use Continuous SpO2 Machine # 6 Intake & Output 08/31/19 09/01/19 09/02/19 06:59 06:59 06:59 Intake Total 1144 560 547 Output Total 1820 285 Balance -676 275 547 Weight 85.5 kg 86.3 kg General appearance: PRESENT: cooperative, mild distress, obese Head exam: PRESENT: atraumatic, normocephalic Eye exam: PRESENT: conjunctiva pink, EOMI Mouth exam: PRESENT: moist Respiratory exam: PRESENT: crackles, symmetrical, unlabored Cardiovascular exam: PRESENT: irregular rhythm, +S1, +S2 Pulses: PRESENT: normal radial pulses GI/Abdominal exam: PRESENT: soft Rectal exam: PRESENT: deferred Neurological exam: PRESENT: alert, awake, oriented to person Psychiatric exam: PRESENT: appropriate affect Skin exam: PRESENT: dry Results Laboratory Results: 09/01/19 06:22 09/01/19 06:22 09/01/19 09/01/19 09/01/19 06:22 06:22 12:42 WBC 4.5 RBC 3.16 L Hgb 10.0 L Hct 29.4 L MCV 93 MCH 31.7 MCHC 34.1 RDW 18.4 H Plt Count 146 L Seg Neutrophils % 87.3 H VBG pH 7.50 H VBG pCO2 38.5 VBG HCO3 29.3 VBG Base Excess 5.7 Sodium 136.3 L Potassium 4.1 Chloride 100 Carbon Dioxide 29 Anion Gap 7 BUN 68 H Creatinine 3.25 H Est GFR ( Amer) 17 L Glucose 83 Calcium 8.1 L Phosphorus 5.2 H Magnesium 2.0 Total Bilirubin 0.7 AST 25 Alkaline Phosphatase 51 Total Protein 4.6 L Albumin 2.3 L 02/02/20 02/02/20 02/09/20 12:15 18:45 06:34 Troponin I 0.040 NT-Pro-B Natriuret Pep 75919 H 66264 H 09/01/19 10:47 Troponin I 0.402 NT-Pro-B Natriuret Pep EKG Comments: Independently reviewed by me. Atrial fibrillation with ST-T changes suggestive of digoxin toxicity. Echocardiogram 08/15/2019 Preserved ejection fraction Impressions: Chest/Abdomen CTA 08/15/19 16:14 IMPRESSION: 1. Study degraded by motion artifact. No definite evidence for pulmonary emboli. 2. Cardiomegaly. Coronary artery calcifications. 3. Emphysema. Small bilateral pleural effusions. Bilateral airspace opacities, may be secondary to multifocal pneumonia; follow-up CT after treatment recommended to ensure complete resolution and exclude underlying neoplasm. 4. Mild mediastinal and right hilar adenopathy. 5. Small abdominal ascites. Mildly dilated common bile duct status post cholecystectomy. Head CT 08/20/19 00:00 IMPRESSION: CHRONIC MICROVASCULAR ISCHEMIA. NO ACUTE IMAGING FINDINGS IN THE BRAIN. EVIDENCE OF ACUTE STROKE: NO. KUB X-Ray 08/21/19 13:18 IMPRESSION: FEEDING TUBE DESCRIBED. Chest X-Ray 08/23/19 08:00 IMPRESSION: Tubes and lines as above. Otherwise unchanged radiographic appearance of the chest. Brain MRI with MRA 08/24/19 00:00 IMPRESSION: NORMAL MRA OF THE [place]. 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 No acute findings EVIDENCE OF ACUTE STROKE: NO. Neck MRA 08/24/19 00:00 IMPRESSION: NO SIGNIFICANT STENOSIS OF THE CAROTID BIFURCATIONS. VERTEBRAL ARTERY SUBOPTIMALLY VISUALIZED ON TODAY'S MRA EXAM. LEFT VERTEBRAL A RTERY IS DOMINANT. Assessment & Plan - Diagnosis (1) Digoxin toxicity Qualifiers: Encounter type: initial encounter Is this a current diagnosis for this admission?: Yes Plan: EKG findings suspicious for digoxin toxicity. Elevated digoxin level on laboratory assessment Patient with rate controlled atrial fibrillation at the moment Would recommend discontinuing digoxin especially since patient is on renal replacement therapy to avoid toxicity. Cessation of continued digoxin administration would suffice at this point. Continue to observe patient on telemetry Avoid negative chronotropic and AV shira blocking agents at the moment. Check another digoxin level tomorrow. (2) Acute decompensated heart failure Is this a current diagnosis for this admission?: Yes Plan: Most recent echocardiogram available shows preserved ejection fraction Likely diastolic heart failure and volume overload situation Renal replacement therapy and hemodialysis to continue Watch volume status although clinically difficult to gauge. (3) Atrial fibrillation Qualifiers: Atrial fibrillation type: longstanding persistent Qualified Code(s): I48.11 - Longstanding persistent atrial fibrillation Is this a current diagnosis for this admission?: Yes Plan: Likely longstanding persistent. Unable to get further information Presently rate controlled and asymptomatic May be rate control strategy is preferred for this patient Continue systemic anticoagulation with warfarin with target INR between 2 and 3.
[2019-09-01 14:53] LABS: CREATINE KINASE MB 3.99 ng/mL (<4.55); TROPONIN I 0.527 ng/mL
[2019-09-01] MEDS ORDERED: NORMAL SALINE 500 ML IV ONE (15:30)
[2019-09-01] MEDS: METHYLPREDNISOLONE INJ 40 MG/1 ML SDV IV SCH (17:05)
--- NOTE | 2019-09-01 17:23 | EKG REPORT ---
SEVERITY:- ABNORMAL ECG - ATRIAL FLUTTER, A-RATE 220 PROBABLE LVH WITH SECONDARY REPOL ABNRM ST DEPRESSION, CONSIDER ISCHEMIA, DIFFUSE LDS : Confirmed by: Katerina Murphy MD 01-Sep-2019 17:23:05
--- NOTE | 2019-09-01 17:23 | EKG REPORT ---
SEVERITY:- ABNORMAL ECG - ATRIAL FIBRILLATION PROBABLE LVH WITH SECONDARY REPOL ABNRM ST DEPRESSION, CONSIDER ISCHEMIA, ANT-LAT LDS BORDERLINE PROLONGED QT INTERVAL : Confirmed by: Katerina Murphy MD 01-Sep-2019 17:22:58
--- NOTE | 2019-09-01 17:31 | PDOC PROGRESS REPORT ---
Subjective Progress Note for:: 09/01/19 Subjective:: This morning, patient was noted to become bradycardic into the 30s and 40s while at dialysis. She was also noted to become hypotensive. At the time EKG revealed downsloping ST depressions. Patient did also endorse some shortness of breath at that time. Patient did receive 325 mg of aspirin. ABG was performed which showed mild metabolic alkalosis. Of note 900 cc of fluid was removed during dialysis. Patient was placed on the BiPAP given tachypnea. Patient la ter settled in in terms of her breathing. EKG changes were likely due to digoxin toxicity which have been held. Patient did receive some boluses of fluid to bring her blood pressure back up. Troponin was measured which showed a flat trend and likely elevated due to ESRD. NSTEMI deemed unlikely at this point. No need for heparinization. Reason For Visit: ACUTE ON CHRONIC RESPIRATORY FAILURE,ESRD Physical Exam Vital Signs: Temp Pulse Resp BP Pulse Ox 97.5 F 79 18 100/55 L 95 09/01/19 16:06 09/01/19 16:06 09/01/19 16:06 09/01/19 16:14 09/01/19 16:06 Pulse Oximeter Continuous Start: 08/27/19 11:14 Freq: RTQ4 Status: Active Protocol: Document 09/01/19 11:19 [facility] (Rec: 09/01/19 11:21 [facility] [id number]) Pulse Oximetry Assessment Oxygen Saturation (92-100) 98 Oxygen Delivery Method CPAP Fraction of Inspired Oxygen (FIO2) 40 Equipment Usage Equipment in Use Continuous SpO2 Machine # 6 Intake & Output 08/31/19 09/01/19 09/02/19 06:59 06:59 06:59 Intake Total 2710 797 2306 Output Total 1820 904 900 Balance -676 275 161 Weight 85.5 kg 86.3 kg General appearance: PRESENT: no acute distress, cooperative Neck exam: ABSENT: JVD Respiratory exam: PRESENT: rhonchi - Mild rhonchi, symmetrical, tachypnea, unlabored. ABSENT: wheezes Cardiovascular exam: PRESENT: irregular rhythm, +S1, +S2. ABSENT: tachycardia GI/Abdominal exam: PRESENT: soft. ABSENT: rebound, rigid, tenderness Extremities exam: PRESENT: +1 edema Neurological exam: PRESENT: alert, awake, oriented to person, oriented to place, oriented to time Results Laboratory Results: 09/01/19 06:22 09/01/19 06:22 09/01/19 09/01/19 09/01/19 06:22 06:22 12:42 WBC 4.5 RBC 3.16 L Hgb 10.0 L Hct 29.4 L MCV 93 MCH 31.7 MCHC 34.1 RDW 18.4 H Plt Count 146 L Seg Neutrophils % 87.3 H VBG pH 7.50 H VBG pCO2 38.5 VBG HCO3 29.3 VBG Base Excess 5.7 Sodium 136.3 L Potassium 4.1 Chloride 100 Carbon Dioxide 29 Anion Gap 7 BUN 68 H Creatinine 3.25 H Est GFR ( Amer) 17 L Glucose 83 Calcium 8.1 L Phosphorus 5.2 H Magnesium 2.0 Total Bilirubin 0.7 AST 25 Alkaline Phosphatase 51 Total Protein 4.6 L Albumin 2.3 L 08/08/19 08/08/19 08/15/19 12:15 18:45 06:34 CK-MB (CK-2) Troponin I 0.040 NT-Pro-B Natriuret Pep 24097 H 56233 H 09/01/19 09/01/19 10:47 14:00 CK-MB (CK-2) 3.99 Troponin I 0.402 0.527 NT-Pro-B Natriuret Pep Impressions: Chest/Abdomen CTA 08/15/19 16:14 IMPRESSION: 1. Study degraded by motion artifact. No definite evidence for pulmonary emboli. 2. Cardiomegaly. Coronary artery calcifications. 3. Emphysema. Small bilateral pleural effusions. Bilateral airspace opacities, may be secondary to multifocal pneumonia; follow-up CT after treatment recommended to ensure complete resolution and exclude underlying neoplasm. 4. Mild mediastinal and right hilar adenopathy. 5. Small abdominal ascites. Mildly dilated common bile duct status post cholecystectomy. Head CT 08/20/19 00:00 IMPRESSION: CHRONIC MICROVASCULAR ISCHEMIA. NO ACUTE IMAGING FINDINGS IN THE BRAIN. EVIDENCE OF ACUTE STROKE: NO. KUB X-Ray 08/21/19 13:18 IMPRESSION: FEEDING TUBE DESCRIBED. Chest X-Ray 08/23/19 08:00 IMPRESSION: Tubes and lines as above. Otherwise unchanged radiographic appearance of the chest. Brain MRI with MRA 08/24/19 00:00 IMPRESSION: NORMAL MRA OF THE [place]. 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 No acute findings EVIDENCE OF ACUTE STROKE: NO. Neck MRA 08/24/19 00:00 IMPRESSION: NO SIGNIFICANT STENOSIS OF THE CAROTID BIFURCATIONS. VERTEBRAL ARTERY SUBOPTIMALLY VISUALIZED ON TODAY'S MRA EXAM. LEFT VERTEBRAL ARTERY IS DOMINANT. Assessment and Plan - Diagnosis (1) Digoxin toxicity Qualifiers: Encounter type: initial encounter Injury intent: accidental or unintentional Qualified Code(s): T46.0X1A - Poisoning by cardiac-stimulant glycosides and drugs of similar action, accidental (unintentional), initial encounter Is this a current diagnosis for this admission?: Yes Plan: EKG showing bradycardia, A. fib with downsloping ST depressions. Digoxin level elevated last night and this morning. Digoxin has been discontinued. Will check digoxin level in the a.m. Cardiology following. (2) Acute and chronic respiratory failure Qualifiers: Respiratory failure complication: hypoxia Qualified Code(s): J96.21 - Acute and chronic respiratory failure with hypoxia Is this a current diagnosis for this admission?: Yes Plan: Hypoxic respiratory failure initially thought to be secondary to COPD, volume overload from ESRD and complicated by pneumonia. Got tachypneic this morning after dialysis. Will place on BiPAP temporarily for today with plans to discontinue BiPAP tomorrow (3) Stroke Qualifiers: CVA mechanism: thrombosis Precerebral and cerebral artery: unspecified cerebral artery Qualified Code(s): I63.30 - Cerebral infarction due to thrombosis of unspecified cerebral artery Is this a current diagnosis for this admission?: Yes Plan: MRI of the brain however shows no acute infarcts but does show several old infarcts. Will need extensive physical and Occupational Therapy. Will require SNF for rehab. (4) COPD exacerbation Is this a current diagnosis for this admission?: Yes Plan: Nebs as needed. Acute exacerbation seems to be over. Discontinue steroids. Continue budesonide inhaler. Will need outpatient PFTs. (5) Persistent atrial fibrillation Is this a current diagnosis for this admission?: Yes Plan: INR remains therapeutic. Continue warfarin 5 mg nightly. Digoxin discontinued given toxicity. Will start on diltiazem later once bradycardia remains re solved. (6) End stage renal failure on dialysis Is this a current diagnosis for this admission?: Yes Plan: Continue dialysis as per nephrology. Often seems to get hypotensive and more dyspneic after dialysis. (7) Pulmonary hypertension Is this a current diagnosis for this admission?: Yes Plan: RVSP on echo >60mmHg and 2/4 diastolic dysfunction with normal EF. Unfortunately, patient's prognosis is poor given this and her significant functional debilitation. She would benefit from palliative care. (8) Malnutrition Qualifiers: Malnutrition type: protein-calorie malnutrition Protein-calorie malnut rition severity: severe Qualified Code(s): E43 - Unspecified severe protein- calorie malnutrition Is this a current diagnosis for this admission?: Yes Plan: Severe protein calorie malnutrition. Patient encouraged on oral intake. We will continue to monitor clinical panel. Continue Megace and nepro nutrition drink TID as recommended by dietary. 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 Will benefit from extensive physical therapy to improve functional status. Discharge planning consulted for SNF - Time Time Spent with patient: 35 or more minutes Total Critical Time (Minutes): 35
[2019-09-01] MEDS: ATORVASTATIN CALCIUM 20 MG TABLET PO SCH (21:28)
[2019-09-01] MEDS: TRAZODONE HCL 50 MG TABLET PO SCH (21:28)
[2019-09-01] MEDS: WARFARIN SODIUM 5 MG TABLET PO SCH (21:28)
[2019-09-02] MEDS: LEVOTHYROXINE SODIUM 0.075 MG TABLET PO SCH (06:17)
[2019-09-02] MEDS: LIOTHYRONINE SODIUM 5 MCG TABLET PO SCH (06:17)
[2019-09-02] MEDS: BUDESONIDE NEB 0.25 MG/2 ML AMPUL NEB SCH ×2 (09:24→20:38)
[2019-09-02] MEDS: DOCUSATE SODIUM 100 MG CAPSULE PO SCH ×2 (09:28→17:17)
[2019-09-02] MEDS: VITAMIN B COMPLEX TABLET PO SCH (09:28)
[2019-09-02] MEDS: CHOLECALCIFEROL (D3) 1,000 UNIT (25 MCG) TABLET PO SCH (09:28)
[2019-09-02] MEDS: ASPIRIN 81 MG TABLET, ENT COATED PO SCH (09:29)
[2019-09-02] MEDS: MEGESTROL ACETATE 20 MG TABLET PO SCH (09:29)
[2019-09-02] MEDS: GENTAMICIN SULFATE 0.1% CREAM 15 GM TP SCH (09:30)
--- NOTE | 2019-09-02 13:47 | PDOC PROGRESS REPORT ---
Subjective Progress Note for:: 09/02/19 Subjective:: Patient feels well today. Eating and drinking ok. Denies SOB. Off Bipap. Reason For Visit: ACUTE ON CHRONIC RESPIRATORY FAILURE,ESRD Physical Exam Vital Signs: Temp Pulse Resp BP Pulse Ox 97.8 F 107 H 20 93/74 L 100 09/02/19 11:04 09/02/19 11:04 09/02/19 11:04 09/02/19 11:04 09/02/19 12:00 Pulse Oximeter Continuous Start: 08/27/19 11:14 Freq: RTQ4 Status: Active Protocol: Document 09/02/19 12:00 [facility] (Rec: 09/02/19 12:19 [facility] [email or web address]) Pulse Oximetry Assessment Oxygen Saturation (92-100) 100 Oxygen Flow Rate (L/min) 3 Oxygen Delivery Method Nasal Cannula Equipment Usage Equipment in Use Continuous SpO2 Machine # 3 Intake & Output 09/01/19 09/02/19 09/03/19 06:59 06:59 06:59 Intake Total 560 1576 300 Output Total 285 1010 60 Balance 275 566 240 Weight 86.3 kg 85.7 kg General appearance: PRESENT: no acute distress, cooperative Neck exam: ABSENT: JVD Respiratory exam: PRESENT: clear to auscultation [place], unlabored. ABSENT: tachy pnea, wheezes Cardiovascular exam: PRESENT: RRR, +S1, +S2. ABSENT: tachycardia GI/Abdominal exam: PRESENT: normal bowel sounds, soft. ABSENT: rebound, rigid, tenderness Neurological exam: PRESENT: alert, awake, oriented to person, oriented to place, oriented to time, oriented to situation Results Laboratory Results: 09/01/19 06:22 09/01/19 06:22 08/08/19 08/08/19 08/15/19 12:15 18:45 06:34 CK-MB (CK-2) Troponin I 0.040 NT-Pro-B Natriuret Pep 72512 H 63538 H 09/01/19 09/01/19 10:47 14:00 CK-MB (CK-2) 3.99 Troponin I 0.402 0.527 NT-Pro-B Natriuret Pep Impressions: Chest/Abdomen CTA 08/15/19 16:14 IMPRESSION: 1. Study degraded by motion artifact. No definite evidence for pulmonary emboli. 2. Cardiomegaly. Coronary artery calcifications. 3. Emphysema. Small bilateral pleural effusions. Bilateral airspace opacities, may be secondary to multifocal pneumonia; follow-up CT after treatment recommended to ensure complete resolution and exclude underlying neoplasm. 4. Mild mediastinal and right hilar adenopathy. 5. Small abdominal ascites. Mildly dilated common bile duct status post cholecystectomy. Head CT 08/20/19 00:00 IMPRESSION: CHRONIC MICROVASCULAR ISCHEMIA. NO ACUTE IMAGING FINDINGS IN THE BRAIN. EVIDENCE OF ACUTE STROKE: NO. KUB X-Ray 08/21/19 13:18 IMPRESSION: FEEDING TUBE DESCRIBED. Chest X-Ray 08/23/19 08:00 IMPRESSION: Tubes and lines as above. Otherwise unchanged radiographic appeara nce of the chest. Brain MRI with MRA 08/24/19 00:00 IMPRESSION: NORMAL MRA OF THE [place]. 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 No acute findings EVIDENCE OF ACUTE STROKE: NO. Neck MRA 08/24/19 00:00 IMPRESSION: NO SIGNIFICANT STENOSIS OF THE CAROTID BIFURCATIONS. VERTEBRAL ARTERY SUBOPTIMALLY VISUALIZED ON TODAY'S MRA EXAM. LEFT VERTEBRAL ARTERY IS DOMINANT. Assessment and Plan - Diagnosis (1) Digoxin toxicity Qualifiers: Encounter type: initial encounter Injury intent: accidental or unintentional Qualified Code(s): T46.0X1A - Poisoning by cardiac-stimulant glycosides and drugs of similar action, accidental (unintentional), initial en counter Is this a current diagnosis for this admission?: Yes Plan: Digoxin remains discontinued. Bradycardia has resolved though still in A. fib. Patient should not be on digoxin given her ESRD and high risk of toxicity in future. Continue to monitor levels which is down trended. (2) Acute and chronic respiratory failure Qualifiers: Respiratory failure complication: hypoxia Qualified Code(s): J96.21 - Acute and chronic respiratory failure with hypoxia Is this a current diagnosis for this admission?: Yes Plan: Hypoxic respiratory failure initially thought to be secondary to COPD, volume overload from ESRD and complicated by pneumonia. Patient now off BiPAP on 3 L nasal cannula. Satting 100% on 3 L and as such we will try to wean. (3) Stroke Qualifiers: CVA mechanism: thrombosis Precerebral and cerebral artery: unspecified cerebral artery Qualified Code(s): I63.30 - Cerebral infarction due to thrombosis of unspecified cerebral artery Is this a current diagnosis for this admission?: Yes Plan: MRI of the brain however shows no acute infarcts but does show several old infarcts. Will need extensive physical and Occupational Therapy. Will require SNF for rehab. (4) COPD exacerbation Is this a current diagnosis for this admission?: Yes Plan: Nebs as needed. Acute exacerbation seems to be over. Continue budesonide inhaler. Will need outpatient PFTs. (5) Persistent atrial fibrillation Is this a current diagnosis for this admission?: Yes Plan: Continue warfarin 5 mg nightly. If heart rate spikes, will start on diltiazem tomorrow. (6) End stage renal failure on dialysis Is this a current diagnosis for this admission?: Yes Plan: Continue dialysis as per nephrology. Often seems to get hypotensive and more dyspneic after dialysis. (7) Pulmonary hypertension Is this a current diagnosis for this admission?: Yes Plan: RVSP on echo >60mmHg and 2/4 diastolic dysfunction with normal EF. Unfortunately, patient's prognosis is poor given this and her significant f unctional debilitation. She would benefit from palliative care. (8) Malnutrition Qualifiers: Malnutrition type: protein-calorie malnutrition Protein-calorie malnutrition severity: severe Qualified Code(s): E43 - Unspecified severe protein-calorie malnutrition Is this a current diagnosis for this admission?: Yes Plan: Nutritional intake continues to improve. Continue Megace and nepro nutrition drink TID as recommended by dietary. 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
--- NOTE | 2019-09-02 15:24 | PDOC PROGRESS REPORT ---
Subjective Progress Note for:: 09/02/19 Subjective:: Patient seen and examined. Resting comfortably. Digoxin stopped. Reason For Visit: ACUTE ON CHRONIC RESPIRATORY FAILURE,ESRD Physical Exam Vital Signs: Temp Pulse Resp BP Pulse Ox 97.4 F 95 20 102/56 L 100 09/01/19 19:20 09/02/19 06:44 09/01/19 20:42 09/01/19 19:36 09/02/19 04:35 Pulse Oximeter Continuous Start: 08/27/19 11:14 Freq: RTQ4 Status: Active Protocol: Document 09/02/19 04:35 DBE (Rec: 09/02/19 04:35 [email or web address] [id number]) Pulse Oximetry Assessment Oxygen Saturation (92-100) 100 Oxygen Flow Rate (L/min) 3 Oxygen Delivery Method Nasal Cannula Fraction of Inspired Oxygen (FIO2) 32 Equipment Usage Equipment in Use Continuous SpO2 Machine # 6 Intake & Output 09/01/19 09/02/19 09/03/19 06:59 06:59 06:59 Intake Total 560 1576 Output Total 285 1010 Balance 275 566 Weight 86.3 kg 85.7 kg General appearance: PRESENT: no acute distress, cooperative, obese Head exam: PRESENT: atraumatic, normocephalic Eye exam: PRESENT: conjunctiva pink, EOMI Mouth exam: PRESENT: moist Respiratory exam: PRESENT: decreased breath sounds, rales, symmetrical, unlabored Cardiovascular exam: PRESENT: irregular rhythm, +S1, +S2 Pulses: PRESENT: normal radial pulses GI/Abdominal exam: PRESENT: soft Rectal exam: PRESENT: deferred Neurological exam: PRESENT: alert, awake, oriented to person, oriented to place, oriented to time Psychiatric exam: PRESENT: appropriate affect Skin exam: PRESENT: dry, intact Results Laboratory Results: 09/01/19 06:22 09/01/19 06:22 09/01/19 12:42 VBG pH 7.50 H VBG pCO2 38.5 VBG HCO3 29.3 VBG Base Excess 5.7 08/08/19 08/08/19 08/15/19 12:15 18:45 06:34 CK-MB (CK-2) Troponin I 0.040 NT-Pro-B Natriuret Pep 74797 H 79126 H 09/01/19 09/01/19 10:47 14:00 CK-MB (CK-2) 3.99 Troponin I 0.402 0.527 NT-Pro-B Natriuret Pep Impressions: Chest/Abdomen CTA 08/15/19 16:14 IMPRESSION: 1. Study degraded by motion artifact. No definite evidence for pulmonary emboli. 2. Cardiomegaly. Coronary artery calcifications. 3. Emphysema. Small bilateral pleural effusions. Bilateral airspace opacities, may be secondary to multifocal pneumonia; follow-up CT after treatment recommended to ensure complete resolution and exclude underlying neoplasm. 4. Mild mediastinal and right hilar adenopathy. 5. Small abdominal ascites. Mildly dilated common bile duct status post cholecystectomy. Head CT 08/20/19 00:00 IMPRESSION: CHRONIC MICROVASCULAR ISCHEMIA. NO ACUTE IMAGING FINDINGS IN THE BRAIN. EVIDENCE OF ACUTE STROKE: NO. KUB X-Ray 08/21/19 13:18 IMPRESSION: FEEDING TUBE DESCRIBED. Chest X-Ray 08/23/19 08:00 IMPRESSION: Tubes and lines as above. Otherwise unchanged radiographic appearance of the chest. Brain MRI with MRA 08/24/19 00:00 IMPRESSION: NORMAL MRA OF THE [place]. 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 No acute findings EVIDENCE OF ACUTE STROKE: NO. Neck MRA 08/24/19 00:00 IMPRESSION: NO SIGNIFICANT STENOSIS OF THE CAROTID BIFURCATIONS. VERTEBRAL ARTERY SUBOPTIMALLY VISUALIZED ON TODAY'S MRA EXAM. LEFT VERTEBRAL ARTERY IS DOMINANT. Assessment & Plan - Diagnosis (1) Digoxin toxicity Qualifiers: Encounter type: initial encounter Injury intent: accidental or unintentional Qualified Code(s): T46.0X1A - Poisoning by cardiac-stimulant glycosides and drugs of similar action, accidental (unintentional), initial encounter Is this a current diagnosis for this admission?: Yes Plan: Off Digoxin. Level is trending down (2) Atrial fibrillation Qualifiers: Atrial fibrillation type: longstanding persistent Qualified Code(s): I48.11 - Longstanding persistent atrial fibrillation Is this a current diagnosis for this admission?: Yes Plan: Rate controlled. Prefer beta-blockers and CCB for rate control should that become necessary. (3) Acute decompensated heart failure Is this a current diagnosis for this admission?: Yes Plan: Improved HD. Volume status difficult to guage. But no active respiratory distress. Lymphedema and some edema seems chronic
[2019-09-02] MEDS ORDERED: HYOSCYAMINE SULFATE 0.125 MG TABLET PO PRN (19:03)
--- NOTE | 2019-09-02 19:08 | ADVANCED CARE ---
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 Resuscitation Status: Do Not Resuscitate Discussion: Discussed patient's multiple comorbid medical conditions with patient. We also discussed patient's poor tolerance of dialysis. Patient states that she does not want to do dialysis anymore. Patient understands that stopping dialysis will inevitably lead to her and is prepared to resume the risk. Patient states that she wants to proceed with hospice at this time and stop for dialysis. Patient will discuss with her tomorrow but states that she wants comfort care and hospice to move into effect immediately. Family would like to know options for hospice care and have informed them that I will have discharge planning stop by tomorrow to have this conversation about potential options for inpatient versus home hospice. Time Spent: 20 mins
[2019-09-02] MEDS: LORAZEPAM INJ 2 MG/1 ML VIAL IV PRN (20:34)
[2019-09-02] MEDS: TRAZODONE HCL 50 MG TABLET PO SCH (22:48)
[2019-09-03] MEDS ORDERED: MIDODRINE HCL 5 MG TABLET PO PRN (06:00)
[2019-09-03] MEDS: MORPHINE SULFATE 10 MG/5 ML ORAL SOLUTION UDCUP PO PRN ×2 (06:49→13:29)
[2019-09-03] MEDS: LIOTHYRONINE SODIUM 5 MCG TABLET PO SCH (06:54)
[2019-09-03] MEDS: LEVOTHYROXINE SODIUM 0.075 MG TABLET PO SCH (06:55)
[2019-09-03 07:34] LABS: ANION GAP 8 (5-19); BLOOD UREA NITROGEN 56 mg/dL (7-20); CALCIUM 7.8 mg/dL (8.4-10.2); CARBON DIOXIDE 31 mmol/L (22-30); CHLORIDE 98 mmol/L (98-107); GLUCOSE 73 mg/dL (75-110); POTASSIUM 3.2 mmol/L (3.6-5.0)
[2019-09-03 07:40] LABS: INTERNATIONAL RATION (INR) 3.62
[2019-09-03] MEDS: BUDESONIDE NEB 0.25 MG/2 ML AMPUL NEB SCH (08:32)
[2019-09-03] MEDS: DOCUSATE SODIUM 100 MG CAPSULE PO SCH (10:38)
[2019-09-03] MEDS: GENTAMICIN SULFATE 0.1% CREAM 15 GM TP SCH (10:55)
[2019-09-03] MEDS: CHOLECALCIFEROL (D3) 1,000 UNIT (25 MCG) TABLET PO SCH (10:55)
[2019-09-03] MEDS: VITAMIN B COMPLEX TABLET PO SCH (10:55)
--- NOTE | 2019-09-03 12:24 | PDOC DISCHARGE SUMMARY ---
Impression - Admit/DC Date/PCP Admission Date/Primary Care Provider: 08/08/19 17:33 GIANNA BOURGEOIS MD Discharge Date: 09/03/19 - Discharge Diagnosis (1) Digoxin toxicity Is this a current diagnosis for this admission?: Yes (2) Acute and chronic respiratory failure Is this a current diagnosis for this admission?: Yes (3) Stroke Is this a current diagnosis for this admission?: Yes (4) COPD exacerbation Is this a current diagnosis for this admission?: Yes (5) Persistent atrial fibrillation Is this a current diagnosis for this admission?: Yes (6) End stage renal failure on dialysis Is this a current diagnosis for this admission?: Yes (7) Pulmonary hypertension Is this a current diagnosis for this admission?: Yes (8) Malnutrition Is this a current diagnosis for this admission?: Yes (9) Anemia in chronic kidney disease Is this a current diagnosis for this admission?: Yes (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 Is this a current diagnosis for this admission?: Yes - Additional Information Resuscitation Status: Do Not Resuscitate Discharge Diet: Cardiac, Other (Comments) Discharge Activity: Activity As Tolerated, Balance Activity w/Rest Referrals: LOUIE EVANS MD [EMERITUS] - Prescriptions: Albuterol Sulfate [Albuterol Sulfate Hfa] 2 puff IH Q3HP PRN #1 inhaler PRN Reason: SOB/COUGH Lorazepam [Ativan] 1 mg SL Q2HP PRN #20 tablet PRN Reason: Docusate Sodium [Colace 100 mg Capsule] 100 mg PO BID #60 capsule Trazodone HCl [Desyrel 50 mg Tablet] 25 mg PO QHS #10 tablet Hyoscyamine Sulfate [Levsin 0.125 Tablet] 0.125 mg PO Q3HP PRN #30 tablet PRN Reason: Morphine Sulfate [Morphine 10 mg/5 ml Oral Soln Udcup] 10 mg PO Q4HP PRN #20 udc PRN Reason: Omeprazole 40 mg PO QAM #30 Levothyroxine Sodium [Synthroid 0.088 mg Tablet] 0.088 mg PO Q6AM #20 Home Medications: Albuterol Sulfate [Albuterol Sulfate Hfa] 2 puff IH Q3HP PRN #1 inhaler 09/03/19 Docusate Sodium [Colace 100 mg Capsule] 100 mg PO BID #60 capsule 09/03/19 Hyoscyamine Sulfate [Levsin 0.125 Tablet] 0.125 mg PO Q3HP PRN #30 tablet 09/03/19 Levothyroxine Sodium [Synthroid 0.088 mg Tablet] 0.088 mg PO Q6AM #20 09/03/19 Lorazepam [Ativan] 1 mg SL Q2HP PRN #20 tablet 09/03/19 Morphine Sulfate [Morphine 10 mg/5 ml Oral Soln Udcup] 10 mg PO Q4HP PRN #20 udc 09/03/19 Omeprazole 40 mg PO QAM #30 09/03/19 Trazodone HCl [Desyrel 50 mg Tablet] 25 mg PO QHS #10 tablet 09/03/19 History of Present Illiness History of Present Illness: EZRA SUERO is a 79 yo woman with ESRD on PD, COPD, UNIQUE, CVA who presented to the ED via EMS for respiratory distress. She was placed on bipap and given breathing treatments. Pt had PD catheter inserted last Friday, therefore she missed that dialysis session. Her last dialysis was last Fri. Upon my evaluation in the ED, she is comfortable on bipap. Hospital Course Hospital Course: Patient is a 79-year-old female with ESRD on dialysis, who was admitted and treated for multiple medical conditions and had an extensive stay in the hospital requiring ICU stays. She was initially presenting with acute respiratory failure with hypoxia and required BiPAP therapy. She was thought to be having COPD exacerbation. Her medical conditions included severe pulmonary hypertension which she was treated for with fluid removal during dialysis. Patient was also treated for significant physical debility, found to be in atrial fibrillation likely paroxysmal and started on treatment for this as well as anticoagulation with heparin bridge to warfarin given a very high chads vasc score. She was also treated for digoxin toxicity during her hospitalization. Of note patient does not tolerate hemodialysis well and has often gotten hemodynamically unstable with hypotension and other fluctuations in vitals during dialysis. Regarding patient's severe pulmonary hypertension with echo showing RVSP over 60 mmHg, fluid removal has been sought during dialysis but patient has not been able to tolerate this either. Patient has been in overall very physically debilitated state and multiple palliative care conversations have been had with patient. Patient and patient's family have decided on hospice and comfort care only at this point. Their wishes have been respected and patient will be discharged to hospice. Physical Exam Vital Signs: Temp Pulse Resp BP Pulse Ox 97.3 F 77 16 94/48 L 97 09/02/19 21:03 09/03/19 08:32 09/03/19 08:32 09/02/19 21:03 09/03/19 08:32 Pulse Oximeter Continuous Start: 08/27/19 11:14 Freq: RTQ4 Status: Active Protocol: Document 09/03/19 12:00 LDA (Rec: 09/03/19 12:02 LDA [id number]) Pulse Oximetry Assessment Equipment Usage Equipment Standby Continuous SpO2 Machine # 6 Intake & Output 09/02/19 09/03/19 09/04/19 06:59 06:59 06:59 Intake Total 1576 675 Output Total 1010 100 Balance 566 575 Weight 85.7 kg General appearance: PRESENT: no acute distress, cooperative Neurological exam: PRESENT: alert, awake Results Laboratory Results: WBC 4.5 10^3/uL (4.0-10.5) 09/01/19 06:22 RBC 3.16 10^6/uL (3.72-5.28) L 09/01/19 06:22 Hgb 10.0 g/dL (12.0-15.5) L 09/01/19 06:22 Hct 29.4 % (36.0-47.0) L 09/01/19 06:22 MCV 93 fl (80-97) 09/01/19 06:22 MCH 31.7 pg (27.0-33.4) 09/01/19 06:22 MCHC 34.1 g/dL (32.0-36.0) 09/01/19 06:22 RDW 18.4 % (11.5-14.0) H 09/01/19 06:22 Plt Count 146 10^3/uL (150-450) L 09/01/19 06:22 Lymph % (Auto) 7.1 % (13-45) L 09/01/19 06:22 [place] % (Auto) 5.2 % (3-13) 09/01/19 06:22 Eos % (Auto) 0.1 % (0-6) 09/01/19 06:22 Baso % (Auto) 0.3 % (0-2) 09/01/19 06:22 Absolute Neuts (auto) 3.9 10^3/uL (1.7-8.2) 09/01/19 06:22 Absolute Lymphs (auto) 0.3 10^3/uL (0.5-4.7) L 09/01/19 06:22 Absolute Monos (auto) 0.2 10^3/uL (0.1-1.4) 09/01/19 06:22 Absolute Eos (auto) 0.0 10^3/uL (0.0-0.6) 09/01/19 06:22 Absolute Basos (auto) 0.0 10^3/uL (0.0-0.2) 09/01/19 06:22 Total Counted 100 08/30/19 06:15 Seg Neutrophils % 87.3 % (42-78) H 09/01/19 06:22 Seg Neuts % (Manual) 91 % (42-78) H 08/30/19 06:15 Band Neutrophils % 2 % (3-5) L 08/22/19 04:45 Lymphocytes % (Manual) 5 % (13-45) L 08/30/19 06:15 Atypical Lymphs % 1 % (0) 08/30/19 06:15 Monocytes % (Manual) 2 % (3-13) L 08/30/19 06:15 Eosinophils % (Manual) 1 % (0-6) 08/30/19 06:15 Basophils % (Manual) 0 % (0-2) 08/30/19 06:15 Abs Neuts (Manual) 5.6 10^3/uL (1.7-8.2) 08/30/19 06:15 Abs Lymphs (Manual) 0.4 10^3/uL (0.5-4.7) L 08/30/19 06:15 Abs Monocytes (Manual) 0.1 10^3/uL (0.1-1.4) 08/30/19 06:15 Absolute Eos (Manual) 0.1 10^3/uL (0.0-0.6) 08/30/19 06:15 Abs Basophils (Manual) 0.0 10^3/uL (0.0-0.2) 08/30/19 06:15 Nucleated RBCs 2 /100 WBC (0) 08/26/19 15:30 Hypersegmented Neuts PRESENT 08/25/19 05:50 Toxic Granulation SLIGHT 08/25/19 05:50 Platelet Estimate Cancelled 08/16/19 05:03 Large Platelets PRESENT 08/25/19 05:50 Platelet Comment ADEQUATE 08/30/19 06:15 Polychromasia 1+ 08/30/19 06:15 Hypochromasia SLIGHT 08/29/19 05:30 Poikilocytosis SLIGHT 08/30/19 06:15 Basophilic Stippling PRESENT 08/30/19 06:15 Anisocytosis 2+ 08/30/19 06:15 Tear Drop Cells SLIGHT 08/30/19 06:15 Ovalocytes 1+ 08/28/19 10:00 [place] Cells SLIGHT 08/24/19 03:11 Acanthocytes (Spur) SLIGHT 08/16/19 07:10 Schistocytes SLIGHT 08/30/19 06:15 PT 37.0 SEC (11.4-15.4) H D 09/03/19 06:30 INR 3.62 09/03/19 06:30 APTT 76.5 SEC (23.5-35.8) H 08/31/19 23:22 D-Dimer 13.36 ug/mL (0.00-0.50) H 08/15/19 13:38 Carbonic Acid 1.11 mmol/L (1.05-1.35) 08/20/19 05:15 HCO3/H2CO3 Ratio 24:1 08/20/19 05:15 ABG pH 7.48 (7.35-7.45) H 08/20/19 05:15 ABG pCO2 36.8 mmHg (35-45) 08/20/19 05:15 ABG pO2 94.8 mmHg (80-100) 08/20/19 05:15 ABG HCO3 26.7 mmol/L (20-24) H 08/20/19 05:15 ABG Total CO2 27.9 mmol/L (21-25) H 08/20/19 05:15 ABG O2 Saturation 97.7 % (94-98) 08/20/19 05:15 ABG Base Excess 3.1 mmol/L 08/20/19 05:15 VBG pH 7.50 (7.30-7.42) H 09/01/19 12:42 VBG pCO2 38.5 mmHg (35-63) 09/01/19 12:42 VBG HCO3 29.3 mmol/L (20-32) 09/01/19 12:42 VBG Base Excess 5.7 mmol/L 09/01/19 12:42 FiO2 50% 08/20/19 05:15 Sodium 136.8 mmol/L (137-145) L 09/03/19 06:30 Potassium 3.2 mmol/L (3.6-5.0) L 09/03/19 06:30 Chloride 98 mmol/L (98-107) 09/03/19 06:30 Carbon Dioxide 31 mmol/L (22-30) H 09/03/19 06:30 Anion Gap 8 (5-19) 09/03/19 06:30 BUN 56 mg/dL (7-20) H 09/03/19 06:30 Creatinine 2.64 mg/dL (0.52-1.25) H 09/03/19 06:30 Est GFR ( Amer) 21 (>60) L 09/03/19 06:30 Est GFR (Non-Af Amer) Cancelled 08/16/19 05:03 Est GFR (MDRD) Non-Af 17 (>60) L 09/03/19 06:30 Glucose 73 mg/dL (75-110) L 09/03/19 06:30 POC Glucose 254 mg/dL (70-110) H 09/01/19 22:23 Lactic Acid 1.5 mmol/L (0.7-2.1) 08/08/19 12:15 Calcium 7.8 mg/dL (8.4-10.2) L 09/03/19 06:30 Phosphorus 5.2 mg/dL (2.5-4.5) H 09/01/19 06:22 Magnesium 2.0 mg/dL (1.6-2.3) 09/01/19 06:22 Total Bilirubin 0.7 mg/dL (0.2-1.3) 09/01/19 06:22 Direct Bilirubin 0.1 mg/dL (0.0-0.4) 09/01/19 06:22 Neonat Total Bilirubin Not Reportable 09/01/19 06:22 Neonat Direct Bilirubin Not Reportable 09/01/19 06:22 Neonat Indirect Bili Not Reportable 09/01/19 06:22 AST 25 U/L (14-36) 09/01/19 06:22 ALT 20 U/L (<35) 09/01/19 06:22 Alkaline Phosphatase 51 U/L (38-126) 09/01/19 06:22 CK-MB (CK-2) 3.99 ng/mL (<4.55) 09/01/19 14:00 Troponin I 0.527 ng/mL 09/01/19 14:00 NT-Pro-B Natriuret Pep 25025 pg/mL (<450) H 08/15/19 06:34 Total Protein 4.6 g/dL (6.3-8.2) L 09/01/19 06:22 Albumin 2.3 g/dL (3.5-5.0) L 09/01/19 06:22 Lipase 163.8 U/L (23-300) 08/08/19 12:15 EGFR Cancelled 08/16/19 05:03 TSH 1.75 uIU/mL (0.47-4.68) 08/23/19 03:00 Free T4 1.44 ng/dL (0.78-2.19) 08/15/19 06:34 Free T3 pg/mL 1.06 pg/mL (2.77-5.27) L 08/15/19 06:34 Urine Color JOANA 08/26/19 03:45 Urine Appearance CLOUDY 08/26/19 03:45 Urine pH 5.0 (5.0-9.0) 08/26/19 03:45 Ur Specific [place] 1.017 08/26/19 03:45 Urine Protein 100 mg/dL (NEGATIVE) H 08/26/19 03:45 Urine Glucose (UA) NEGATIVE mg/dL (NEGATIVE) 08/26/19 03:45 Urine Ketones NEGATIVE mg/dL (NEGATIVE) 08/26/19 03:45 Urine Blood MODERATE (NEGATIVE) H 08/26/19 03:45 Urine Nitrite NEGATIVE (NEGATIVE) 08/26/19 03:45 Urine Bilirubin NEGATIVE (NEGATIVE) 08/26/19 03:45 Urine Urobilinogen NEGATIVE mg/dL (<2.0) 08/26/19 03:45 Ur Leukocyte Esterase TRACE (NEGATIVE) H 08/26/19 03:45 Urine WBC (Auto) 38 /HPF 08/26/19 03:45 Urine RBC (Auto) 71 /HPF 08/26/19 03:45 Squamous Epi Cells Auto 1 /HPF 08/23/19 16:28 U Non-Squamous Epis Auto 2 /HPF 08/23/19 16:28 Amorphous Sediment Auto TRACE /HPF 08/23/19 16:28 Urine Mucus (Auto) RARE /LPF 08/26/19 03:45 Urine Yeast (Budding) PRESENT /HPF 08/26/19 03:45 Urine Ascorbic Acid NEGATIVE (NEGATIVE) 08/26/19 03:45 Time Trough Drawn 0300 08/23/19 03:00 Vancomycin Trough 17.0 ug/mL (5.0-20.0) 08/23/19 03:00 Digoxin 2.17 ng/mL (0.8-2.0) H* 09/02/19 05:45 Influenza A (Rapid) NEGATIVE (NEGATIVE) 08/12/19 09:02 Influenza B (Rapid) NEGATIVE (NEGATIVE) 08/12/19 09:02 Slides for Path Review Cancelled 08/16/19 05:03 Blood Type A POSITIVE 08/29/19 16:15 Antibody Screen NEGATIVE 08/29/19 16:15 Crossmatch See Detail 08/29/19 16:15 08/08/19 08/08/19 08/15/19 12:15 18:45 06:34 CK-MB (CK-2) Troponin I 0.040 NT-Pro-B Natriuret Pep 33380 H 94817 H 09/01/19 09/01/19 10:47 14:00 CK-MB (CK-2) 3.99 Troponin I 0.402 0.527 NT-Pro-B Natriuret Pep Impressions: Chest X-Ray 08/08/19 12:02 IMPRESSION: CHRONIC INTERSTITIAL CHANGES. NO ACUTE RADIOGRAPHIC FINDING IN THE CHEST. Chest X-Ray 08/09/19 06:00 IMPRESSION: Chronic interstitial changes with more focal opacity of the right mid lung suggestive of superimposed pneumonia. Chest X-Ray 08/12/19 12:40 IMPRESSION: Increasing bilateral alveolar and interstitial infiltrates right greater than left worrisome for pulmonary edema. Pneumonia could mimic this appearance Chest X-Ray 08/13/19 18:00 IMPRESSION: Slightly increased interstitial prominence, greater on the left. Persistent confluent airspace-nodular opacities in the right mid lung. Slightly increased left pleural effusion. Chest/Abdomen CTA 08/15/19 16:14 IMPRESSION: 1. Study degraded by motion artifact. No definite evidence for pulmonary emboli. 2. Cardiomegaly. Coronary artery calcifications. 3. Emphysema. Small bilateral pleural effusions. Bilateral airspace opacities, may be secondary to multifocal pneumonia; follow-up CT after treatment recommended to ensure complete resolution and exclude underlying neoplasm. 4. Mild mediastinal and right hilar adenopathy. 5. Small abdominal ascites. Mildly dilated common bile duct status post cholecystectomy. Chest X-Ray 08/16/19 00:00 IMPRESSION: The tip and side hole of the enteric tube project within the gastric lumen. Chest X-Ray 08/20/19 00:00 IMPRESSION: Removal of the endotracheal and nasogastric tubes. Otherwise, no significant change compared to the prior exam. copyright 2011 [employer]- All Rights Reserved Head CT 08/20/19 00:00 IMPRESSION: CHRONIC MICROVASCULAR ISCHEMIA. NO ACUTE IMAGING FINDINGS IN THE BRAIN. EVIDENCE OF ACUTE STROKE: NO. KUB X-Ray 08/21/19 13:18 IMPRESSION: FEEDING TUBE DESCRIBED. Chest X-Ray 08/23/19 08:00 IMPRESSION: Tubes and lines as above. Otherwise unchanged radiographic appearance of the chest. Brain MRI with MRA 08/24/19 00:00 IMPRESSION: NORMAL MRA OF THE [place] OF [place]. 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 No acute findings EVIDENCE OF ACUTE STROKE: NO. Neck MRA 08/24/19 00:00 IMPRESSION: NO SIGNIFICANT STENOSIS OF THE CAROTID BIFURCATIONS. VERTEBRAL ARTERY SUBOPTIMALLY VISUALIZED ON TODAY'S MRA EXAM. LEFT VERTEBRAL ARTERY IS DOMINANT. Plan Time Spent: Greater than 30 Minutes Stroke Is this a Stroke Patient?: Yes Stroke Pt being discharged on Anti-thrombolytic therapy?: No Reason(s) for not prescribing Anti-thrombolytic therapy:: Hospice Care Stroke Pt being discharged on Anti-coagulation therapy?: No Reason(s) for not prescribing Anti-coagulation therapy:: Hospice Care Stroke Pt being discharged on Statins?: No Reason(s) for not prescribing Statins therapy:: Hospice Care Acute Heart Failure - Is this a Heart Failure Patient?: No
[2019-09-03] MEDS: LORAZEPAM INJ 2 MG/1 ML VIAL IV PRN (13:29)
[2019-09-03 13:35] VITALS: BP 104/74
== END 2019-09-03 14:26 | disposition hospice, home (50) | DRG 291 ==
LOC: ER 11:52 → EH 17:33 → ICU 20:26 → 5 08-10 18:22 → 3N 08-13 17:34 → ICU 08-16 14:42 → 3W 08-24 15:25
PROVIDERS: ADMIT Internal Medicine Critical Care Medicine; ATTEND Hospitalist
PROC: 5A09557 Assistance with Respiratory Ventilation, Greater than 96 Consecutive Hours, Continuous Positive Airway Pressure (ICD-10-PCS; principal; 2019-08-08)
PROC: 5A1D70Z Performance of Urinary Filtration, Intermittent, Less than 6 Hours Per Day (ICD-10-PCS; 2019-08-09)
PROC: 02HV33Z Insertion of Infusion Device into Superior Vena Cava, Percutaneous Approach (ICD-10-PCS; 2019-08-21)
PROC: 30233N1 Transfusion of Nonautologous Red Blood Cells into Peripheral Vein, Percutaneous Approach (ICD-10-PCS; 2019-08-30)
DX: I13.2 Hypertensive heart and chronic kidney disease with heart failure and with stage 5 chronic kidney disease, or end stage renal disease (principal); J96.21 Acute and chronic respiratory failure with hypoxia; N18.6 End stage renal disease; J18.9 Pneumonia, unspecified organism; E43 Unspecified severe protein-calorie malnutrition; I48.11 Longstanding persistent atrial fibrillation; E87.2 Acidosis; G45.8 Other transient cerebral ischemic attacks and related syndromes; R47.01 Aphasia; I50.32 Chronic diastolic (congestive) heart failure; G72.81 Critical illness myopathy; I27.20 Pulmonary hypertension, unspecified; D63.1 Anemia in chronic kidney disease; G47.33 Obstructive sleep apnea (adult) (pediatric); I25.10 Atherosclerotic heart disease of native coronary artery without angina pectoris; E03.9 Hypothyroidism, unspecified; I95.9 Hypotension, unspecified; Z66 Do not resuscitate; E83.39 Other disorders of phosphorus metabolism; I15.0 Renovascular hypertension; E78.2 Mixed hyperlipidemia; Y95 Nosocomial condition; J43.9 Emphysema, unspecified; E66.01 Morbid (severe) obesity due to excess calories; T46.0X1A Poisoning by cardiac-stimulant glycosides and drugs of similar action, accidental (unintentional), initial encounter; I25.2 Old myocardial infarction; Z99.2 Dependence on renal dialysis; Z79.890 Hormone replacement therapy; Z79.01 Long term (current) use of anticoagulants; Z95.5 Presence of coronary angioplasty implant and graft; Z99.81 Dependence on supplemental oxygen; Z85.3 Personal history of malignant neoplasm of breast; Z90.10 Acquired absence of unspecified breast and nipple; Z87.891 Personal history of nicotine dependence; Z79.899 Other long term (current) drug therapy; Z88.2 Allergy status to sulfonamides; Z88.8 Allergy status to other drugs, medicaments and biological substances; Z79.82 Long term (current) use of aspirin; Z86.73 Personal history of transient ischemic attack (TIA), and cerebral infarction without residual deficits
CPT/HCPCS: 36415; 36430; 36556; 36600; 70450; 70544; 70547; 70551; 71045; 71275; 74018; 80048; 80053; 80069; 80162; 80202; 81001; 82553; 82803; 82962; 83605; 83690; 83735; 83880; 84100; 84439; 84443; 84481; 84484; 85025; 85027; 85379; 85610; 85730; 86850; 86900; 86901; 86920; 87040; 87070; 87205; 87804; 93005; 93010; 93306; 93970; 94660; 94667; 94668; 94762; 96360; 96361; 99231; 99233; 99291; J0360; J0692; J1160; J1200; J1265; J1642; J1644; J1815; J1956; J2060; J2370; J2543; J2920; J3370; J3490; J7030; J7040; J7060; J7120; J7512; J7614; J7620; J7626; P9016; P9041; P9047; Q5105